=== PATIENT | male | born 1940 | race Caucasian/White ===

== ENCOUNTER 2017-01-24 21:50 | Emergency (ER) | payer MEDICARE, OTHER ==
--- NOTE | 2017-01-24 22:08 | Emergency Department Record ---
History of Present Illness - General Chief Complaint: Shortness of breath Stated Complaint: CHEST DISCOMFORT/DEYSI Time Seen by Provider: 01/24/17 22:08 Source: Patient Mode of Arrival: Ambulatory Limitations: No limitations - History of Present Illness Initial Comments: 76 yo male presents to ED with a CC of "difficulty breathing when sitting, improved with getting up and moving around". Patient denies fevers, chills, cough, or chest pain symptoms. Patient reports lower extremity wounds and edema , but has not worsened recently. Patient reports recent history of atrial fibrillation. MD Complaint: Shortness of breath Onset/Timin -: Days(s) Severity: Moderate Consistency: Intermittent Improves With: Nothing Worsens With: Lying flat Known History Of: COPD, Diabetes Associated Symptoms: Denies other symptoms Treatments Prior to Arrival: None - Related Data Home Oxygen Therapy: No Home Medications Medication Instructions Recorded Confirmed Last Taken Amoxicillin [Amoxil] 875 mg PO BID 11/02/16 11/02/16 11/01/16 Ampicillin Sodium 500 mg IJ ASDIR PRN 11/02/16 11/02/16 Unknown Ascorbic Acid [Vitamin C] 1,000 mg PO DAILY 11/02/16 11/02/16 11/01/16 Atorvastatin Calcium [Lipitor] 40 mg PO QHS 11/02/16 11/02/16 11/01/16 Ferrous Sulfate 325 mg PO TID 11/02/16 11/02/16 11/01/16 Furosemide [Lasix] 40 mg PO BID 11/02/16 11/02/16 11/01/16 Hydromorphone HCl [Dilaudid] 1 mg PO CONT 11/02/16 11/02/16 11/01/16 Insulin Detemir [Levemir] 6 unit SQ QHS 11/02/16 11/02/16 11/01/16 Levothyroxine Sodium [Synthroid] 25 mcg PO DAILY 11/02/16 11/02/16 11/01/16 Magnesium 400 mg PO BID 11/02/16 11/02/16 11/01/16 Metoprolol/Hydrochlorothiazide 1 tab PO BID 11/02/16 11/02/16 11/01/16 [Lopressor Hct 50-25 Tablet] Multivit-Min/FA/Lycopene/Lut 1 each PO DAILY 11/02/16 11/02/16 11/01/16 [Centrum Silver Tablet] Oxycodone HCl/Acetaminophen 1 tab PO Q4H PRN 11/02/16 11/02/16 11/01/16 [Percocet 10mg/325mg] Ranitidine HCl [Zantac] 150 mg PO DAILY 11/02/16 11/02/16 11/01/16 Tamsulosin HCl [Flomax] 0.4 mg PO DAILY 11/02/16 11/02/16 11/01/16 Warfarin Sodium [Coumadin] 2 mg PO DAILY 11/02/16 11/02/16 11/01/16 Allergies Allergy/AdvReac Type Severity Reaction Status Date / Time onion Allergy Intermediate NAUSEA Verified 01/30/16 14:13 Travel Screening - Travel/Exposure Within Last 30 Days Have you traveled within the last 30 days?: No - Travel/Exposure Within Last Year Have you traveled outside the [place] in the last year?: No - Additonal Travel Details Have you been exposed to anyone with a communicable illness?: No Review of Systems Constitutional: Denies: Chills, Fever, Malaise, Night sweats Eyes: Denies: Eye discharge, Eye pain ENT: Denies: Congestion, Ear pain, Epistaxis Respiratory: Reports: Dyspnea. Denies: Cough, Hemoptysis Cardiovascular: Reports: Chest pain. Denies: Dyspnea on exertion, Palpitations , Paroxysmal nocturnal dyspnea Endocrine: Denies: Fatigue, Heat or cold intolerance Gastrointestinal: Denies: Abdominal pain, Nausea, Vomiting Genitourinary: Denies: Hematuria, Incontinence, Retention Musculoskeletal: Denies: Arthralgia, Back pain, Gout, Joint swelling Skin: Denies: Bruising, Change in color Neurological: Denies: Abnormal gait, Confusion, Headache, Seizure Psychiatric: Denies: Anxiety Hematological/Lymphatic: Denies: Anemia, Blood Clots Past Medical History - SOCIAL HISTORY Smoking Status: Former smoker Alcohol Use: None Drug Use: None - RESPIRATORY Hx Respiratory Disorders: Yes Hx Pneumonia: Yes (1989) - CARDIOVASCULAR Hx Cardio Disorders: Yes Hx Abnormal EKG: Yes Hx CHF: Yes Hx Deep Vein Thrombosis: Yes (20 years ago after being kicked by a cow) Hx Edema: Yes (bilat legs recent hospitalization) Hx Hypertension: Yes Hx Irregular Heartbeat: Yes (hx a fib had cardioversion 1990) Hx Pacemaker/Defib: Yes (2015) Comment:: hospitalizations states cardiac arrest during past hospitalization - NEURO Hx Neuro Disorders: No Hx Seizures: (denies) - GI Hx GI Disorders: Yes Hx Reflux: (denies reflux) Hx Wt Loss/Wt Gain: Yes (loss 20-30#) - Hx Genitourinary Disorders: No Hx Prostate Problems: No (pt states no but on flomax) - ENDOCRINE Hx Endocrine Disorders: Yes Hx Diabetes: Yes Comment:: checks blood sugars bid (100-140)/ulcers on feet due to poor circulation - MUSCULOSKELETAL Hx Musculoskeletal Disorders: Yes Hx Arthritis: Yes Hx Back Injury: Yes Hx Musculoskeletal Disease: Yes Comment:: chronic pain; hx septic hip in past - PSYCH Hx Psych Problems: No - HEMATOLOGY/ONCOLOGY Hx Hematology/Oncology Disorders: Yes Hx Anemia: Yes Hx Bruising: Yes Hx Cancer: Yes (skin) Hx Clotting Problems: Yes Hx Blood Transfusions: Yes (with hip surgery, and hematoma) Hx Blood Transfusion Reaction: No Comment:: pt to bridge with Lovenox 4 days preop Family Medical History Any Significant Family History?: Yes Hx Cancer: Father, Mother Hx Dementia: Mother *Dementia Comment: mother alzheimers Physical Exam - General General Appearance: Alert, Oriented x3, Cooperative, No acute distress Limitations: No limitations - Head Head exam: Atraumatic, Normocephalic, Normal inspection Head exam detail: negative: Abrasion, Contusion, Bravo's sign, General tenderness, Hematoma, Laceration - Eye Eye exam: Normal appearance. negative: Conjunctival injection, Periorbital swelling, Periorbital tenderness, Scleral icterus - ENT Ear exam: negative: Auricular hematoma, Auricular trauma Nasal Exam: negative: Active bleeding, Discharge, Dried blood, Foreign body Mouth exam: negative: Drooling, Laceration, Muffled voice, Tongue elevation - Neck Neck exam: Normal inspection. negative: Meningismus, Tenderness - Respiratory Respiratory exam: Decreased breath sounds. negative: Rales, Respiratory distress, Rhonchi, Stridor, Wheezes - Cardiovascular Cardiovascular Exam: Regular rate, Normal rhythm, Normal heart sounds - GI/Abdominal GI/Abdominal exam: Soft. negative: Rebound, Rigid, Tenderness - Rectal Rectal exam: Deferred - exam: Deferred - Extremities Extremities exam: Pedal edema. negative: Calf tenderness, Tenderness - Back Back exam: Denies: CVA tenderness (R), CVA tenderness (L) - Neurological Neurological exam: Alert, Oriented X3. negative: Motor sensory deficit - Psychiatric Psychiatric exam: Normal affect, Normal mood - Skin Skin exam: Normal color. negative: Abrasion Type of lesion: negative: abrasion Course - Reevaluation(s) Reevaluation #1: 01/24/17 22:08 EKG: Demand Pacing 74 T Wave inversion III Previous 08/06/16, no paced rhythm at this time. 01/24/17 22:14 Reevaluation #2: 01/24/17 23:06 Labs reviewed, Troponin 0.089, Hgb 11.1, INR 2.61, BNP 6190, BUN 45/Creatinine 1.5 (baseline per previous labs). Aspirin given to the patient. CXR reviewed, appears consistent with RLL infiltrate. [facility] 1-call contacted for transfer. Reevaluation #3: 01/24/17 23:19 Case was discussed with Dr. Davila, will accept admission for SDU. Reevaluation #4: 01/24/17 23:30 Patient and family updated on all results, awaiting bed number for transfer. Medical Decision Making - Lab Data Result diagrams: 01/24/17 21:55 01/24/17 21:55 Disposition Disposition: Transfer Clinical Impression: Elevated troponin Dyspnea Qualifiers: Dyspnea type: unspecified Qualified Code(s): R06.00 - Dyspnea, unspecified CHF (congestive heart failure) Qualifiers: Congestive heart failure type: unspecified congestive heart failure type Congestive heart failure chronicity: unspecified congestive heart failure chronicity Qualified Code(s): I50.9 - Heart failure, unspecified Pneumonia Qualifiers: Pneumonia type: due to unspecified organism Laterality: right Lung location: lower lobe of lung Qualified Code(s): J18.1 - Lobar pneumonia, unspecified organism Disposition: Acute Care Hospital Transfer Transfer To: [facility] Reason For Transfer: Cardiology consultation Accepting Physician: Giovanni Time Discussed w/Accepting Physician: 23:22 Condition: (2) Stable Forms: Patient Portal Access Time of Disposition: 23:22
[2017-01-24 22:18] LABS: BASO % 0.4 % (0-6); EOS % 3.2 % (0-6); GRAN % 68.6 % (47-80); HEMATOCRIT 35.3 % (42.0-52.0); HEMOGLOBIN 11.1 gm/dl (14.0-18.0); LYMPH % 18.8 % (16-45); MEAN CELL VOLUME 87.4 fl (81-97); MEAN CORPUSCULAR HEMOGLOBIN 27.4 pg (27-33); MEAN CORPUSCULAR HGB CONC 31.4 g/dl (32-36); MEAN PLATELET VOLUME 11.1 fl (7.4-10.4); PLATELET COUNT 184 K/uL (130-400); RED BLOOD COUNT 4.04 M/uL (4.40-5.70); RED CELL DISTRIBUTION WIDTH 14.8 % (11.5-14.5); WHITE BLOOD COUNT W/O DIFF 5.4 K/uL (4.2-12.2)
[2017-01-24] MEDS ORDERED: IPRATROPIUM/ALBUTEROL (0.5MG/3MG) NEB INH ONE (22:27)
[2017-01-24 22:28] LABS: ALB/GLOB RATIO 1.4 (1.1-1.8); ALBUMIN 4.3 gm/dL (3.5-5.0); ANION GAP 11.4 (7-16); BILIRUBIN,TOTAL 1.12 mg/dL (0.2-1.3); CARBON DIOXIDE 30.6 mmol/L (22-30); CREATININE 1.5 mg/dL (0.66-1.25); TOTAL PROTEIN 7.3 gm/dL (6.3-8.2)
[2017-01-24 22:40] LABS: CKMB 7.5 ug/L (0-6)
[2017-01-24 22:44] LABS: INR 2.61; PROTHROMBIN TIME (PATIENT) 29.5 SECONDS (9.5-12.1)
[2017-01-24] MEDS ORDERED: ASPIRIN 81 MG CHEWABLE TABLET PO ONE (22:49)
[2017-01-24 23:07] LABS: TROPONIN I 0.089 ng/mL (0.00-0.034)
[2017-01-24] MEDS ORDERED: CEFTRIAXONE SODIUM 1 GM in 0.9 % SODIUM CHLORIDE 100ML 100 ML IVPB ONE (23:12)
[2017-01-24] MEDS ORDERED: DOXYCYCLINE HYCLATE 100 MG CAPSULE PO ONE (23:30)
[2017-01-25] MEDS ORDERED: HYDROMORPHONE HCL 1 MG/ML CPJ IVP ONE (00:17)
[2017-01-25 00:27] LABS: CKMB RELATIVE INDEX 2.3 % (0-4)
--- NOTE | 2017-01-29 08:23 | RADIOLOGY REPORT ---
EXAM: CHEST, TWO VIEWS HISTORY: SHORTNESS OF BREATH. TECHNIQUE: Upright PA and lateral views of the chest were obtained. Comparison: Two view chest radiographic examination dated 05/17/15. Acute abdominal series dated 11/02/16. FINDINGS: A dual lead transvenous cardiac stimulator remains in place via the left subclavian approach with lead tips in the right atrium and right ventricle respectively. The heart is not grossly enlarged. No pulmonary venous hypertension is seen. Minor patchy opacities are questioned in each lung base consistent with atelectasis or infiltrate. There is mild elevation of the left hemidiaphragm. No lung consolidation, costophrenic angle blunting, or pneumothorax. There are degenerative changes of the visualized spine. IMPRESSION: 1. MINOR PATCHY OPACITIES IN THE LOWER LUNGS CONSISTENT WITH ATELECTASIS OR MILD INFILTRATE. 2. MILD ELEVATION OF THE LEFT HEMIDIAPHRAGM. 3. DUAL LEAD TRANSVENOUS CARDIAC STIMULATOR REMAINS IN PLACE. JOB NUMBER: [id number] MTDD
== END 2017-01-25 04:00 | disposition short-term general hospital (02) ==
LOC: ER 21:50
DX: J18.1 Lobar pneumonia, unspecified organism (principal); I50.9 Heart failure, unspecified; R79.89 Other specified abnormal findings of blood chemistry; R06.00 Dyspnea, unspecified; E11.9 Type 2 diabetes mellitus without complications; Z79.4 Long term (current) use of insulin; I48.91 Unspecified atrial fibrillation; Z79.01 Long term (current) use of anticoagulants; I10 Essential (primary) hypertension; Z87.891 Personal history of nicotine dependence
CPT/HCPCS: 71020; 80053; 82550; 82553; 83880; 84484; 85025; 85610; 93005; 93010; 94640; 96365; 96375; 99285; J1170

== ENCOUNTER 2017-02-24 14:51 | Inpatient (IN) | payer MEDICARE, OTHER ==
[2017-02-25] MEDS ORDERED: ALBUTEROL SULFATE (0.083%) 2.5 MG/3 ML NEB INH PRN (15:09)
[2017-02-25] MEDS ORDERED: OXYCODONE/APAP 10MG-325MG TABLET PO PRN (15:10)
[2017-02-25] MEDS ORDERED: CLOTRIMAZOLE/BETAMET 15 GM TUBE TOP PRN (15:13)
[2017-02-25] MEDS ORDERED: DICLOFENAC 1% TOP PRN (15:17)
[2017-02-25] MEDS: IPRATROPIUM/ALBUTEROL (0.5MG/3MG) NEB INH SCH ×2 (17:42→22:02)
[2017-02-25] MEDS: BUMETANIDE 1 MG TABLET PO SCH (18:29)
[2017-02-25] MEDS: FERROUS SULFATE 325 MG TAB PO SCH (18:29)
[2017-02-25] MEDS: WARFARIN 1 MG TABLET PO SCH ×2 (18:30→21:21)
[2017-02-25] MEDS: POLYETHYLENE GLY 17 GM PACKET PO SCH (21:46)
[2017-02-25] MEDS: SENNOSIDES/DOCUSATE SODIUM UD CAPSULE PO SCH (21:48)
[2017-02-25] MEDS: DOXYCYCLINE HYCLATE 100 MG CAPSULE PO SCH (21:48)
[2017-02-25] MEDS: POTASSIUM CHLORIDE 20 MEQ TABLET PO SCH (21:49)
[2017-02-25] MEDS: METOPROLOL TART 50 MG TABLET PO SCH (21:49)
[2017-02-25] MEDS: RANITIDINE HCL 150 MG TABLET PO SCH (21:49)
[2017-02-25] MEDS: GUAIFENESIN 1,200 MG TABLET PO SCH (21:50)
[2017-02-25] MEDS: ASCORBIC ACID 500 MG TAB PO SCH (21:50)
[2017-02-25] MEDS: CEFDINIR 300 MG CAPSULE PO SCH (21:51)
[2017-02-25] MEDS: LEVEMIR FLEXTOUCH 100 UNIT/ML INSULIN PEN SQ SCH (22:03)
[2017-02-26] MEDS: LEVOTHYROXINE SODIUM 150 MCG TABLET PO SCH (06:21)
[2017-02-26] MEDS: IPRATROPIUM/ALBUTEROL (0.5MG/3MG) NEB INH SCH ×5 (06:21→22:14)
--- NOTE | 2017-02-26 07:10 | History & Physical ---
History of Present Illness - Date Date of Service for History & Physical: 02/26/17 - History of Present Illness Admitting Diagnosis: Deconditioning due to CHF and Pneumonia History of Present Illness: 76 y/o male admitted to [facility] after prolonged hospital stay for deconditioning s/p HCAP and exacerbation CHF NYHA class III. PMX: CAD (cath 2010 , treadmill 2014), atrial fibrillation on long-term anticoagulant therapy with coumadin, cardioversion 01/27/17, v-tach with AICD placement, bilat carotid stenosis, mitral insufficiency, HTN, DM-2, ICD, diastolic CHF (echo 12/2016 EF 60 -65%). While hospitalized at [facility] was treated for HCAP, placed on broad spectrum antibiotics and to continue Vantin x total 10 day regimen. Had slow clinical recovery with recent readmission soon after previous discharge prompting hesitation of promp discharge. He developed diarrhea during his stay, c-diff PCR ordered but loose stool stopped thereafter. WBC normal at time of discharge. Was diuresed with IV Bumex and metolazone with total of 25lb weight loss during the course of admission with suspected over diuresis. BUmex held x 36 hours due to JOAN with improvement in renal function. Plan to resume Bumex 2mg PO BID at discharge (was taking Lasix 80mg TID at home prior to admit to [facility]). Developed BLE cellulitis during admit with improvement on Doxycycline and will continue for total 10 day regimen. Right foot pulse weak, arterial duplex complete RLE and was normal. Arterial doppler BUE done 2nd > 15mmHg difference in upper extremity blood pressures and was found to be normal. CT chest without evidence of aortic dissection. Did have a run of NSVT prior to hospitalization, case discussed with cardiology with no new recommendations. Day prior to discharge: INR 3.9, BUN 36, Cr 1.34, GFR 52, WBC nl, Hgb 12.0 PCP: Dr Elan Aleman Cardiology: LEONARDA Franz General - Cognitive Patterns Orientation: Oriented x3 - Communication Preferred Language?: Lithuanian List Of First Job Ideas Required: No Level of Education: High School Preferred Method of Learning: Seeing, Doing Comprehension Ability: No Impairment Able to Read: Yes Able to Write: Yes Select best description of speech pattern: Clear Speech Ability to express ideas and wants: Understood Understanding verbal content: Understands - Psychosocial Well-Being Usual Living Arrangement: Alone - Physical Functioning Activity Level: Up as tolerated Turning: Self ad trista ROM Ability: Limited/Compromised Assistive Devices: 2 Wheel Walker Ambulation Ability: Needs Assist Bed Mobility: Needs Assist Transfer Ability: Needs Assist Bathing Ability: Needs Assist Personal Hygiene: Needs Assist Dressing Ability: Needs Assist Eating (Feeding) Ability: Needs Assist Toileting Ability: Needs Assist Administer Own Medication: Needs Assist - Continence Bowel Pattern: Normal for Patient Bladder Pattern: Normal - Dental Status Unable to examine: No Broken or loosely fitting full or partial dentures: No No natural teeth or tooth fragment(s) (edentulous): No Abnormal mouth tissue (ulcers, masses, oral lesions, etc.): No Obvious or likely cavity or broken natural teeth: No Inflamed or bleeding gums or loose natural teeth: No Mouth/facial pain, discomfort or difficulty chewing: No - Nutrition Screening Poor oral intake > 1 week: No Unplanned weight loss in specified time frame: No Nutrition Support via tube feedings or parenteral nutrition: No Pressure Ulcer: No Significantly underweight define as BMI <18.5 kg/m2: No Albumin <2.5mg/dL: No Persistent nausea/vomiting/diarrhea >3 days: No Difficulty chewing/swallowing/mouth sores: No Admitting Diagnosis: No Nutrition Risk Score: Low Risk Past Medical History - SOCIAL HISTORY Smoking Status: Former smoker Alcohol Use: None - SURGICAL HISTORY Past Surgical History: pump trial with dilaudid implanted cath (permanent device in place). Back surgery X5, neck surgery, Hip & shoulder sx,Bunionectomy ,bilat right hip replacement, AICD, abscess rt thigh, septic hip, hematoma rt thigh, revision x2, evac of hematoma post rt hip;. lumbar rhizotomy 05/31/15. permanent pain pump 2016 - RESPIRATORY Hx Respiratory Disorders: Yes Hx Pneumonia: Yes (1989, current 2016) - CARDIOVASCULAR Hx Cardio Disorders: Yes Hx Abnormal EKG: Yes Hx CHF: Yes Hx Deep Vein Thrombosis: Yes (20 years ago after being kicked by a cow, current rt ankle 01/2017) Hx Edema: Yes (bilat legs recent hospitalization) Hx Hypertension: Yes Hx Irregular Heartbeat: Yes (hx a fib had cardioversion 1990 & 01/2017) Hx Pacemaker/Defib: Yes (2014) Comment:: hospitalizations states cardiac arrest during past hospitalization - NEURO Hx Neuro Disorders: No Hx Seizures: (denies) - GI Hx GI Disorders: Yes Hx Reflux: (denies reflux) Hx Wt Loss/Wt Gain: Yes (loss 20-30#) - Hx Genitourinary Disorders: No Hx Prostate Problems: No (pt states no but on flomax) - ENDOCRINE Hx Endocrine Disorders: Yes Hx Diabetes: Yes Hx Thyroid Disease: Yes Comment:: checks blood sugars bid (100-140)/ulcers on feet due to poor circulation - MUSCULOSKELETAL Hx Musculoskeletal Disorders: Yes Hx Arthritis: Yes Hx Back Injury: Yes Hx Musculoskeletal Disease: Yes Comment:: chronic pain; hx septic hip in past - PSYCH Hx Psych Problems: No - HEMATOLOGY/ONCOLOGY Hx Hematology/Oncology Disorders: Yes Hx Anemia: Yes Hx Bruising: Yes Hx Cancer: Yes (skin) Hx Clotting Problems: Yes Hx Blood Transfusions: Yes (with hip surgery, and hematoma) Hx Blood Transfusion Reaction: No Family Medical History Any Significant Family History?: No Hx Cancer: Father, Mother Hx Dementia: Mother *Dementia Comment: mother alzheimers H&P Meds/Allergies - Allergies Allergies: Allergies Allergy/AdvReac Type Severity Reaction Status Date / Time onion Allergy Intermediate NAUSEA Verified 01/30/16 14:13 - Home Medications Home Medications Medication Instructions Recorded Confirmed Last Taken Ascorbic Acid [Vitamin C] 1,000 mg PO BID 11/02/16 02/25/17 02/25/17 1000 Atorvastatin Calcium [Lipitor] 40 mg PO QHS 11/02/16 02/25/17 02/25/17 40 Ferrous Sulfate 325 mg PO TID 11/02/16 02/25/17 02/25/17 325 Hydromorphone HCl [Dilaudid] 1 mg PO CONT 11/02/16 02/25/17 11/01/16 Insulin Detemir [Levemir] 6 unit SQ QHS 11/02/16 02/25/17 02/24/17 6 Magnesium 400 mg PO BID 11/02/16 02/25/17 02/25/17 400 Multivit-Min/FA/Lycopene/Lut 1 each PO DAILY 11/02/16 02/25/17 02/25/17 [Centrum Silver Tablet] 1 Oxycodone HCl/Acetaminophen 1 - 2 tab PO Q4H PRN 11/02/16 02/25/17 11/01/16 [Percocet 10mg/325mg] Ranitidine HCl [Zantac] 150 mg PO DAILY 11/02/16 02/25/17 02/24/17 150 Tamsulosin HCl [Flomax] 0.4 mg PO DAILY 11/02/16 02/25/17 02/25/17 0.4 Warfarin Sodium [Coumadin] 2 mg PO DAILY 11/02/16 02/25/17 02/25/17 3 Amiodarone HCl [Pacerone] 200 mg PO DAILY 02/25/17 02/25/17 02/25/17 200 Bumetanide [Bumex] 2 mg PO DAILY 02/25/17 02/25/17 Unknown Cefpodoxime Proxetil 200 mg PO BID 02/25/17 02/25/17 Unknown Cholecalciferol (Vitamin D3) 5,000 unit PO DAILY 02/25/17 02/25/17 Unknown [Vitamin D3] Clotrimazole/Betamethasone Dip 15 gm TP BID 02/25/17 02/25/17 Unknown [Clotrimazole-Betamethasone Crm] Doxycycline Hyclate [Doxycycline] 100 mg PO BID 02/25/17 02/25/17 Unknown Guaifenesin [Guaifenesin ER] 1,200 mg PO BID 02/25/17 02/25/17 02/25/17 1200 Levalbuterol Tartrate [Xopenex Hfa] 2 puff INH RESP.Q6H PRN 02/25/17 02/25/17 Unknown Levothyroxine Sodium [Synthroid] 150 mcg PO QAM 02/25/17 02/25/17 02/25/17 150 Metoprolol Tartrate [Metoprolol 50 mg PO BID 02/25/17 02/25/17 02/25/17 Tartrate] 50 Polyethylene Glycol 3350 [Miralax] 17 gm PO DAILY 02/25/17 02/25/17 Unknown Potassium Chloride [Klor-Con] 20 meq PO BID 02/25/17 02/25/17 Unknown Prednisone [Prednisone 20Mg] 40 mg PO DAILY 02/25/17 02/25/17 02/25/17 40 Sennosides/Docusate Sodium 2 each PO QHS 02/25/17 02/25/17 Unknown [Senna-Docusate Sodium Tablet] - Active Medications Active Medications: Current Medications Albuterol Sulfate () 2.5 mg INH Q6H PRN PRN Reason: WHEEZING Albuterol/Ipratropium (Duoneb) 3 ml INH RESP.Q4H.[employer] Last Admin: 02/26/17 06:21 Dose: 3 ml Amiodarone HCl (Pacerone) 200 mg PO DAILY [facility] Ascorbic Acid (Vitamin C) 1,000 mg PO BID [facility] Last Admin: 02/25/17 21:50 Dose: 1,000 mg Atorvastatin Calcium (Lipitor) 40 mg PO DAILY [facility] Bumetanide (Bumex) 2 mg PO BIDDIUR [facility] Last Admin: 02/25/17 18:29 Dose: 2 mg Cefdinir (Cefdinir) 300 mg PO Q12H [facility] Stop: 02/28/17 10:01 Last Admin: 02/25/17 21:51 Dose: 300 mg Clotrimazole (Lotrisone) 0.5 gm TOP BID PRN PRN Reason: DRY SKIN Doxycycline Hyclate (Vibramycin) 100 mg PO Q12H [facility] Stop: 02/28/17 10:01 Last Admin: 02/25/17 21:48 Dose: 100 mg Ferrous Sulfate (Iron) 325 mg PO WMEALS [facility] Last Admin: 02/25/17 18:29 Dose: 325 mg Guaifenesin (Mucinex) 1,200 mg PO BID [facility] Stop: 02/27/17 22:01 Last Admin: 02/25/17 21:50 Dose: 1,200 mg Insulin Detemir (Levemir Flextouch) 6 unit SQ QHS [facility] Last Admin: 02/25/17 22:03 Dose: 6 unit [facility]othy[facility]ine [facility]) [facility] Admin: 02/26/17 06:21 Dose: 150 mcg Magnesium Oxide (Mag Ox) 400 mg PO DAILY [facility] Metoprolol Tartrate (Lopressor) 50 mg PO BID [facility] Last Admin: 02/25/17 21:49 Dose: 50 mg Multivitamins/Minerals (Centrum) 1 tab PO DAILY [facility] Oxycodone/Acetaminophen (Percocet 10-325 Mg Tablet) 1 each PO Q4H PRN PRN Reason: Pain - General Oxycodone/Acetaminophen (Percocet 10-325 Mg Tablet) 2 each PO Q4H PRN PRN Reason: Pain - General Patient Own Med: (Diclofenac Cream 1 %) 1 each TOP DAILY PRN PRN Reason: Pain - General Polyethylene Glycol (Miralax) 17 gm PO QHS [facility] Last Admin: 02/25/17 21:46 Dose: 17 gm Potassium Chloride (Klor-Con) 20 meq PO BID [facility] Last Admin: 02/25/17 21:49 Dose: 20 meq Prednisone (Prednisone 20mg) 40 mg PO DAILYWM [facility] Stop: 02/27/17 08:01 Ranitidine HCl (Zantac) 150 mg PO QHS [facility] Last Admin: 02/25/17 21:49 Dose: 150 mg Senna/Docusate Sodium (Senna Plus) 1 each PO QHS [facility] Last Admin: 02/25/17 21:48 Dose: 1 each Tamsulosin HCl (Flomax) 0.4 mg PO DAILY [facility] Vitamin D (Vitamin D3) 5,000 unit PO DAILY [facility] Warfarin Sodium (Coumadin) 2 mg PO 1999 [facility] Last Admin: 02/25/17 21:21 Dose: Not Given Physical Exam - Vital Signs Vital Signs: Vital Signs - Last 24 Hrs Pulse Resp Pulse Ox 02/25/17 17:53 76 18 94 L - General General Appearance: Alert, Oriented x3, Cooperative, No acute distress - Head Head exam: Atraumatic - Eye Eye exam: Normal appearance, EOMI - ENT ENT exam: Normal exam - Neck Neck exam: Normal inspection, Full ROM - Respiratory Respiratory exam: Normal lung sounds bilaterally - Cardiovascular Cardiovascular Exam: Regular rate, Normal rhythm, Normal heart sounds Peripheral Pulses: 1+: Dorsalis Pedis (R), 2+: Dorsalis Pedis (L) - GI/Abdominal GI/Abdominal exam: Soft, Normal bowel sounds. negative: Tenderness - exam: Deferred - Extremities Extremities exam: negative: Pedal edema - Neurological Neurological exam: Alert, CN II-XII intact, Oriented X3 - Psychiatric Psychiatric exam: Normal affect, Normal mood - Skin Skin exam: Other (wound right medial malleolar area, currently covered wt dressing, was a blistered area from excessive swelling at time of admit to [facility]) H&P Results - Labs Result Diagrams: 02/27/17 06:00 02/27/17 06:00 Labs Last 24 Hours: Laboratory Results - last 24 hr 02/25/17 22:00 POC Glucose 346 H Discharge Potential - Discharge Needs Community Services Used Prior to Admission: None Patient Discharge Plan Description: Return Home Community Services Needed at Discharge: Occupational Therapy, Physical Therapy Plan - Swing Bed Certification Initial Certification Due: 02/25/17 14 Day Re-Cert Due: 03/11/17 44 Day Re-Cert Due: 04/10/17 74 Day Re-Cert Due: 05/10/17 - Detailed Diagnosis and Plan (1) Generalized weakness Current Visit: Yes Status: Acute Base Code: R53.1 - WEAKNESS Comment: 02/26/17- Admitted for generalized weakness and general deconditioning s /p prolonged hospitalization for HCAP and exacerbatio of CHF with subsequent development of RLE cellulitis. - PT/OT evaluat and treat - nursing to encourage frequent ambulation and independence of ADL (2) Healthcare-associated pneumonia Current Visit: Yes Status: Acute Base Code: J18.9 - PNEUMONIA, UNSPECIFIED ORGANISM Comment: 02/26/17 - afebrile, WBC normal. Continues with intermittent productive cough, no DEYSI - continue Vantin to complete 10 day regimen (3) CHF (congestive heart failure) Current Visit: Yes Status: Acute Qualifiers: Congestive heart failure type: unspecified congestive heart failure type Congestive heart failure chronicity: unspecified congestive heart failure chronicity Qualified Code(s): I50.9 - Heart failure, unspecified Base Code: I50.9 - HEART FAILURE, UNSPECIFIED Comment: 02/26/17 Exacerbation of chronic CHF, 25lb overall weight loss during hospitalizaiton - Continue Bumex 2mg BID per cardiology recommendations from [facility] - will be monitoring renal function closley - weight weekly - follow up outpatient vascular team at [facility] for upper arm BP discrepency (4) Anemia Current Visit: Yes Status: Chronic Base Code: D64.9 - ANEMIA, UNSPECIFIED Comment: 02/26/17 - admit Hgb 12.0 - continue iron TID (5) Cellulitis Current Visit: Yes Status: Acute Base Code: L03.90 - CELLULITIS, UNSPECIFIED Comment: 02/26/17- cellulitis 2nd excessive BLE edema upon admittsion to [facility]. 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 - accu checks BID - diabetic diet - follow up PCP 1-2 weeks after discharge (7) DVT prophylaxis Current Visit: Yes Status: Acute Base Code: [id number] - Comment: 02/26/17- moderate risk due to age and prolonged hospitalization. Will continue Coumadin 2mg QD with serial INRs and dose adjustments accordingly to keep INR therapeutic (8) Full code status Current Visit: Yes Status: Acute Base Code: Z78.9 - OTHER SPECIFIED HEALTH STATUS
[2017-02-26] MEDS: PREDNISONE 20 MG TAB PO SCH (08:01)
[2017-02-26] MEDS: FERROUS SULFATE 325 MG TAB PO SCH ×3 (08:02→16:32)
--- NOTE | 2017-02-26 09:51 | Rehab Evaluation ---
Patient Information - Patient Information Ordered Treatment: PT Evaluate and Treat Status: Initial Evaluation History: Detail (The patient was transferred from [facility] for Rehab. The patient was hospitalized for pnemonia.) Past Medical/Surgical Hx: PAST MEDICAL/SURGICAL HISTORY Past Surgical History pump trial with dilaudid implanted cath ( permanent device in place) Back surgery X5, neck surgery, Hip & shoulder sx ,Bunionectomy,bilat right hip replacement, AICD , abscess rt thigh, septic hip, hematoma rt thigh , revision x2, evac of hematoma post rt hip; lumbar rhizotomy 05/31/15. permanent pain pump 2015 PMH - Respiratory Hx Respiratory Disorders Yes Hx Pneumonia Yes: 1989, current 2016 Hx of SOB Yes: occass PMH - Cardiovascular Hx Cardiovascular Disorders Yes Hx Abnormal EKG Yes Hx Congestive Heart Failure Yes Hx Deep Vein Thrombosis Yes: 20 years ago after being kicked by a cow, current rt ankle 01/2017 Hx Edema Yes: bilat legs recent hospitalization Hx Hypertension Yes Hx Irregular Heartbeat Yes: hx a fib had cardioversion 1990 & 01/2017 Hx Pacemaker/Defibrillator Yes: 2014 Comment: hospitalizations states cardiac arrest during past hospitalization 07/18 PMH - Neuro Hx Neurological Disorders No Hx Neuropathy Yes: rt hand Hx Seizures denies PMH - GI Hx Gastrointestinal Disorders Yes Hx Gastroesophageal Reflux denies reflux Hx Weight Loss/Weight Gain Yes: loss 20-30# PMH - Hx Genitourinary Disorders No Hx Bladder Problem Yes: retention Hx Prostate Problems No: pt states no but on flomax Hx Urinary Tract Infection Yes PMH - Endocrine Hx Endocrine Disorders Yes Hx Diabetes Yes Hx Thyroid Disease Yes Hx of NIDDM Yes Hx of IDDM Yes Comment: checks blood sugars bid (100-140)/ulcers on feet due to poor circulation PMH - Musculoskeletal Hx Musculoskeletal Disorders Yes Hx Arthritis Yes Hx Back Injury Yes Hx Musculoskeletal Disease Yes Comment: chronic pain; hx septic hip in past PMH - Psych Hx Psychiatric Problems No PMH - Hematology/Oncology Hx Hematology/Oncology Yes Disorders Hx Anemia Yes Hx Bruising Yes Hx Cancer Yes: skin Hx Clotting Problems Yes Hx Blood Transfusion Reaction No Comment: pt to bridge with Lovenox 4 days preop Premorbid Status: Detail (Prior to hospitalization the patient was ambulating with 2 canes outside and 1 cane in the home. The patient was independent with all ADL's and cooking. The patient's daughter assisted the patient with senior director of strategy.) Social History: Detail (The patient lives alone in a one story home with 3 steps at the entrance and 1 handrail. The patient has 2 bathrooms one with a shower stall and one with tub/shower combo with grab bar and one with elevated toilet, the other with a standard toilet. The patient has canes, and a wheeled walker.) Precautions: [place], Fall, Other (Past history of MRSA) - Time With Patient Total Time Spent With Patient (Min): 30 Treatment Procedures: Detail (Initial Evaluation and ambulation) Subjective Information - Subjective Information Per Patient (The patient complains of R groin pain with movement.) Objective Data - Pain Pain Present: Yes Pain Intensity: 6 Pain Scale Used: Numeric (1 - 10) - Mental Status Patient Orientation: Oriented x3 - Visual Perception Appears within normal limits for therapeutic activities - ROM Not within normal limits (R hip rotation external and internal was 5 to 10 degrees and painful, hip flexion to 100 degrees, abduction aprox 30 degrees, all other LE ROM was WNL. Refer to OT note for UE ROM.) - Strength/Tone Not within normal limits (L LE strength 4+ to 5/5, R LE hip flexors 3-/5, rotators 3-/5, hip abductors and adductors 3/5, Quadriceps 3/5, hamstrings 3+/5 , ankle musculature 4-/5. The patient had pain with all hip movements and knee extension.) - Coordination Appears within normal limits for therapeutic activities - Bed Mobility Needs Assist (Not tested. The patient was up in chair.) - Transfers Independent (Independent sit to and from stand .) - Balance Balance Sitting: Good Balance Standing: Fair (The patient is able to stand with wide base of support, increased postural sway with narrow base. The patient also exhibits decreased posterior balance reaction. Using the Tinetti Balance Tool the patient score 19 /28 which is the moderate for fall category.) - Gait Detail (The patient ambulated with wheeled walker a distance of 140 feet x 1 with supervision for safety. The patient's gait pattern is charecterized by decreased weight bearing R LE, decreased R hip drop and knee flexion R swing phase.) Therapy Assessment - Therapy Assessment Detail (The patient exhibits decreased R LE and groin pain with movement, decreased ability to complete sustained physical activity, difficulty with ambulation due to groin pain and decreased LE strength and moderate risk for falling. Patient is a good rehab candidate to return to previous functional level .) Problem List - Problem List Physical Therapy Problem List: Detail (1) Decreased R LE strength 2) Impaired balance 3) Decreased ability to complete sustained physical activity) Goals - Goals Physical Therapy Goals: 1)Assess bed mobility. 2) The patient will ambulate with assistive device distances of 300 feet indpendently on levels and steps. 3 ) The patient's R LE strength will improve 1/3 muscle grade. 4) Improve the patient's balance 3 to 4 points on Tinetti Balance Scale. Prognosis - Prognosis Good Plan - Plan Physical Therapy Plan: PT M-F 1 to 2 times a day for LE strengthening and balance exercises, transfer and gait training.
[2017-02-26] MEDS: BUMETANIDE 1 MG TABLET PO SCH ×2 (10:20→16:31)
[2017-02-26] MEDS: CEFDINIR 300 MG CAPSULE PO SCH ×2 (10:21→22:29)
[2017-02-26] MEDS: MULTIVITAMINS/MINERALS TABLET PO SCH (10:21)
[2017-02-26] MEDS: TAMSULOSIN HCL 0.4 MG CAP.ER.24H PO SCH (10:22)
[2017-02-26] MEDS: POTASSIUM CHLORIDE 20 MEQ TABLET PO SCH ×2 (10:22→22:29)
[2017-02-26] MEDS: ATORVASTATIN 20 MG TABLET PO SCH (10:23)
[2017-02-26] MEDS: METOPROLOL TART 50 MG TABLET PO SCH ×2 (10:23→22:28)
[2017-02-26] MEDS: MAGNESIUM OXIDE 400 MG TABLET PO SCH (10:23)
[2017-02-26] MEDS: AMIODARONE HCL 200 MG TABLET PO SCH (10:24)
[2017-02-26] MEDS: DOXYCYCLINE HYCLATE 100 MG CAPSULE PO SCH ×2 (10:24→22:28)
[2017-02-26] MEDS: GUAIFENESIN 1,200 MG TABLET PO SCH ×2 (10:24→22:29)
[2017-02-26] MEDS: ASCORBIC ACID 500 MG TAB PO SCH ×2 (10:24→22:28)
[2017-02-26] MEDS: OXYCODONE/APAP 10MG-325MG TABLET PO PRN ×2 (10:25→23:37)
[2017-02-26] MEDS: CHOLECALCIFEROL 1,000 UNIT TABLET PO SCH (10:25)
--- NOTE | 2017-02-26 12:03 | Rehab Evaluation ---
Patient Information - Patient Information Diagnosis: deconditioning due to CHF and pneumonia Ordered Treatment: OT Evaluate and Treat Status: Initial Evaluation Surgery: No History: Detail (The patient was transferred from [facility] for Rehab. The patient was hospitalized for pneumonia.) Past Medical/Surgical Hx: PAST MEDICAL/SURGICAL HISTORY Past Surgical History pump trial with dilaudid implanted cath ( permanent device in place) Back surgery X5, neck surgery, Hip & shoulder sx ,Bunionectomy,bilat right hip replacement, AICD , abscess rt thigh, septic hip, hematoma rt thigh , revision x2, evac of hematoma post rt hip; lumbar rhizotomy 05/31/15. permanent pain pump 2015 PMH - Respiratory Hx Respiratory Disorders Yes Hx Pneumonia Yes: 1989, current 2016 Hx of SOB Yes: occass PMH - Cardiovascular Hx Cardiovascular Disorders Yes Hx Abnormal EKG Yes Hx Congestive Heart Failure Yes Hx Deep Vein Thrombosis Yes: 20 years ago after being kicked by a cow, current rt ankle 01/2017 Hx Edema Yes: bilat legs recent hospitalization Hx Hypertension Yes Hx Irregular Heartbeat Yes: hx a fib had cardioversion 1990 & 01/2017 Hx Pacemaker/Defibrillator Yes: 2014 Comment: hospitalizations states cardiac arrest during past hospitalization 07/18 PMH - Neuro Hx Neurological Disorders No Hx Neuropathy Yes: rt hand Hx Seizures denies PMH - GI Hx Gastrointestinal Disorders Yes Hx Gastroesophageal Reflux denies reflux Hx Weight Loss/Weight Gain Yes: loss 20-30# PMH - Hx Genitourinary Disorders No Hx Bladder Problem Yes: retention Hx Prostate Problems No: pt states no but on flomax Hx Urinary Tract Infection Yes PMH - Endocrine Hx Endocrine Disorders Yes Hx Diabetes Yes Hx Thyroid Disease Yes Hx of NIDDM Yes Hx of IDDM Yes Comment: checks blood sugars bid (100-140)/ulcers on feet due to poor circulation PMH - Musculoskeletal Hx Musculoskeletal Disorders Yes Hx Arthritis Yes Hx Back Injury Yes Hx Musculoskeletal Disease Yes Comment: chronic pain; hx septic hip in past PMH - Psych Hx Psychiatric Problems No PMH - Hematology/Oncology Hx Hematology/Oncology Yes Disorders Hx Anemia Yes Hx Bruising Yes Hx Cancer Yes: skin Hx Clotting Problems Yes Hx Blood Transfusion Reaction No Comment: pt to bridge with Lovenox 4 days preop Premorbid Status: Detail (Prior to hospitalization the patient was ambulating with 2 canes outside and 1 cane in the home. The patient was independent with all ADL's and cooking. The patient's daughter assisted the patient with sausage mixer.) Social History: Detail (The patient lives alone in a one story home with 3 steps at the entrance and 1 handrail. The patient has 2 bathrooms one with a walk in shower stall and one with tub/shower combo with grab bar and one with elevated toilet, the other with a standard toilet. The patient has canes, and a wheeled walker.) Precautions: [place], Fall, Other (Past history of MRSA) - Time With Patient Total Time Spent With Patient (Min): 30 Treatment Procedures: Detail (OT eval low complexity) Subjective Information - Subjective Information Per Patient Objective Data - Pain Pain Present: Yes (5-6/10 in right groin) - Mental Status Patient Orientation: Oriented x3 - Visual Perception Appears within normal limits for therapeutic activities - ROM Not within normal limits (Ozzy shoulder flexion limited to approx. 90 degrees with pain in right shoulder, ozzy elbow, wrist and hand AROM WNL.) - Strength/Tone Not within normal limits (Ozzy shoulder flexion 4-/5 within AROM limitations and with pain in right shoulder, ozzy elbows, wrists and dolphin researcher 4+/5) - Coordination Appears within normal limits for therapeutic activities - Transfers Independent - Balance Balance Sitting: Good Balance Standing: Good - Sensation Intact - Gait Detail (Pt ambulated in hallway with 2 wheeled walker and SBA.) - ADL's/IADL's Detail (Pt reports he completed a shower, grooming/hygiene and all dressing Indly yesterday with no difficulty.) Therapy Assessment - Therapy Assessment Detail (Pt presents with decreased overall endurance and decreased AROM/ strength in ozzy shoulders. He is Ind with self care activities.) Problem List - Problem List Physical Therapy Problem List: Detail (1) Decreased R LE strength 2) Impaired balance 3) Decreased ability to complete sustained physical activity) Occupational Therapy Problem List: Detail (1. Decreased endurance needed for safe and Ind ADLs/IADLs. 2. Decreased UE AROM and strength needed for IADLs.) Goals - Goals Physical Therapy Goals: 1)Assess bed mobility. 2) The patient will ambulate with assistive device distances of 300 feet indpendently on levels and steps. 3 ) The patient's R LE strength will improve 1/3 muscle grade. 4) Improve the patient's balance 3 to 4 points on Tinetti Balance Scale. Occupational Therapy Goals: 1. Pt will improve endurance needed for safe and Ind ADLs/IADLs 2. Pt will improve ozzy shoulder AROM by 20 degrees and improve strength to 4+/5 within AROM limitations to allow Ind with IADLs. Prognosis - Prognosis Good Plan - Plan Physical Therapy Plan: PT M-F 1 to 2 times a day for LE strengthening and balance exercises, transfer and gait training. Occupational Therapy Plan: OT 1-4 times per week to address endurance, ADLs/ IADLs, UE AROM and strengthening to allow safe and Ind return home.
[2017-02-26] MEDS: WARFARIN 1 MG TABLET PO SCH (20:50)
[2017-02-26] MEDS: RANITIDINE HCL 150 MG TABLET PO SCH (22:28)
[2017-02-26] MEDS: SENNOSIDES/DOCUSATE SODIUM UD CAPSULE PO SCH (22:28)
[2017-02-26] MEDS: POLYETHYLENE GLY 17 GM PACKET PO SCH (22:29)
[2017-02-26] MEDS: LEVEMIR FLEXTOUCH 100 UNIT/ML INSULIN PEN SQ SCH (22:29)
[2017-02-27] MEDS: IPRATROPIUM/ALBUTEROL (0.5MG/3MG) NEB INH SCH ×5 (05:59→21:57)
[2017-02-27] MEDS: LEVOTHYROXINE SODIUM 150 MCG TABLET PO SCH (06:28)
[2017-02-27 07:20] LABS: BASO % 0.1 % (0-6); GRAN % 76.9 % (47-80); HEMATOCRIT 38.7 % (42.0-52.0); HEMOGLOBIN 12.2 gm/dl (14.0-18.0); LYMPH % 13.5 % (16-45); MEAN CELL VOLUME 85.6 fl (81-97); MEAN CORPUSCULAR HGB CONC 31.5 g/dl (32-36); MEAN PLATELET VOLUME 10.6 fl (7.4-10.4); MONO % 9.5 % (0-9); PLATELET COUNT 210 K/uL (130-400); RED BLOOD COUNT 4.52 M/uL (4.40-5.70); RED CELL DISTRIBUTION WIDTH 14.3 % (11.5-14.5)
[2017-02-27 07:24] LABS: MEAN CORPUSCULAR HEMOGLOBIN 26.9 pg (27-33)
[2017-02-27 07:28] LABS: INR 3.94
[2017-02-27 07:29] LABS: ALB/GLOB RATIO 1.3 (1.1-1.8); ALBUMIN 4.1 gm/dL (3.5-5.0); ANION GAP 9.3 (7-16); BILIRUBIN,TOTAL 0.58 mg/dL (0.2-1.3); CARBON DIOXIDE 33.7 mmol/L (22-30); CREATININE 1.3 mg/dL (0.66-1.25); PROTHROMBIN TIME (PATIENT) 44.5 SECONDS (9.5-12.1); TOTAL PROTEIN 7.2 gm/dL (6.3-8.2)
[2017-02-27] MEDS: FERROUS SULFATE 325 MG TAB PO SCH ×3 (08:39→17:46)
[2017-02-27] MEDS: PREDNISONE 20 MG TAB PO SCH (08:39)
[2017-02-27] MEDS: GUAIFENESIN 1,200 MG TABLET PO SCH ×2 (11:06→22:00)
[2017-02-27] MEDS: ASCORBIC ACID 500 MG TAB PO SCH ×2 (11:06→22:00)
[2017-02-27] MEDS: MAGNESIUM OXIDE 400 MG TABLET PO SCH (11:06)
[2017-02-27] MEDS: TAMSULOSIN HCL 0.4 MG CAP.ER.24H PO SCH (11:06)
[2017-02-27] MEDS: ATORVASTATIN 20 MG TABLET PO SCH (11:07)
[2017-02-27] MEDS: CHOLECALCIFEROL 1,000 UNIT TABLET PO SCH (11:07)
[2017-02-27] MEDS: DOXYCYCLINE HYCLATE 100 MG CAPSULE PO SCH ×2 (11:07→22:00)
[2017-02-27] MEDS: AMIODARONE HCL 200 MG TABLET PO SCH (11:07)
[2017-02-27] MEDS: CEFDINIR 300 MG CAPSULE PO SCH ×2 (11:08→21:59)
[2017-02-27] MEDS: MULTIVITAMINS/MINERALS TABLET PO SCH (11:08)
[2017-02-27] MEDS: BUMETANIDE 1 MG TABLET PO SCH ×2 (11:08→17:46)
[2017-02-27] MEDS: METOPROLOL TART 50 MG TABLET PO SCH ×2 (11:09→21:59)
[2017-02-27] MEDS: POTASSIUM CHLORIDE 20 MEQ TABLET PO SCH ×2 (11:09→21:59)
--- NOTE | 2017-02-27 14:44 | Physical Therapy Tx Note ---
Physical Therapy Tx Note - Treatment Note Tolerated: Good Total Time Spent With Patient: 40 Physical Therapy Tx Note: Detail (Pt was sitting in chair upon arrival. Pt was eager to get up and exercise per pt report. Pt states however that pain is 8/10 in right hip today. Pt was able to do all transfers independently today. Pt ambulated 250 ft. with front wheeled walker with contact guard assist. Pt required one rest period x 3 min. but rested while standing and refused a chair to rest. Pt returned to room and to sitting in chair. Pt completed ex's of marches with right side assist, x 10 bilaterally. Seated hip abduction and hip adduction with manual restistance x 10 each with 5 second hold. Seated heel raise and calf raise x 15 each bilaterally. MTT of MFR and trigger point release to right hip flexor, adductor, and quad releases to decrease pain. Pt states pain increased after exercises but decreased after manual therapy. Continue to progress strength and endurance with exercises. Pt was in chair resting after treatment and given call light, bedside table, with walker within reach.) Physical Therapy Problem List: Detail (1) Decreased R LE strength 2) Impaired balance 3) Decreased ability to complete sustained physical activity) Physical Therapy Goals: 1)Assess bed mobility. 2) The patient will ambulate with assistive device distances of 300 feet indpendently on levels and steps. 3 ) The patient's R LE strength will improve 1/3 muscle grade. 4) Improve the patient's balance 3 to 4 points on Tinetti Balance Scale. Prognosis: Good Physical Therapy Plan: PT M-F 1 to 2 times a day for LE strengthening and balance exercises, transfer and gait training.
--- NOTE | 2017-02-27 15:05 | Physical Therapy Tx Note ---
Physical Therapy Tx Note - Treatment Note Tolerated: Good Total Time Spent With Patient: 40 Physical Therapy Tx Note: Detail (Pt seated in bedside chair upon arrival; in good spirits, but reporting pain in R shoulder and R groin. Performed 15 reps each of assisted hip flexion w/green t-band, hip abduction, hip adduction, hamstring curls; LAQ; 5 reps of assisted shoulder flexion R, active L; active horizontal abduction; rowing w/green t-band x 10. Ambulated w/front wheeled walker x 180 feet w/SBA, Independent w/ sit/stand transfers. Left up in chair with call light, cell phone, and bedside tables in reach.) Physical Therapy Problem List: Detail (1) Decreased R LE strength 2) Impaired balance 3) Decreased ability to complete sustained physical activity) Physical Therapy Goals: 1)Assess bed mobility. 2) The patient will ambulate with assistive device distances of 300 feet indpendently on levels and steps. 3 ) The patient's R LE strength will improve 1/3 muscle grade. 4) Improve the patient's balance 3 to 4 points on Tinetti Balance Scale. Prognosis: Good Physical Therapy Plan: PT M-F 1 to 2 times a day for LE strengthening and balance exercises, transfer and gait training.
[2017-02-27] MEDS: WARFARIN 1 MG TABLET PO SCH (20:41)
[2017-02-27] MEDS: LEVEMIR FLEXTOUCH 100 UNIT/ML INSULIN PEN SQ SCH (21:59)
[2017-02-27] MEDS: POLYETHYLENE GLY 17 GM PACKET PO SCH (22:00)
[2017-02-27] MEDS: SENNOSIDES/DOCUSATE SODIUM UD CAPSULE PO SCH (22:00)
[2017-02-27] MEDS: RANITIDINE HCL 150 MG TABLET PO SCH (22:01)
[2017-02-28] MEDS: IPRATROPIUM/ALBUTEROL (0.5MG/3MG) NEB INH SCH ×5 (05:57→22:05)
[2017-02-28] MEDS: LEVOTHYROXINE SODIUM 150 MCG TABLET PO SCH (06:05)
[2017-02-28 06:26] LABS: BASO % 0.1 % (0-6); GRAN % 75.6 % (47-80); HEMATOCRIT 39.9 % (42.0-52.0); HEMOGLOBIN 12.4 gm/dl (14.0-18.0); LYMPH % 15.4 % (16-45); MEAN CORPUSCULAR HEMOGLOBIN 26.7 pg (27-33); MEAN CORPUSCULAR HGB CONC 31.1 g/dl (32-36); MONO % 8.9 % (0-9); PLATELET COUNT 225 K/uL (130-400); RED BLOOD COUNT 4.64 M/uL (4.40-5.70); RED CELL DISTRIBUTION WIDTH 14.7 % (11.5-14.5); WHITE BLOOD COUNT W/O DIFF 8.4 K/uL (4.2-12.2)
[2017-02-28 06:39] LABS: ALB/GLOB RATIO 1.4 (1.1-1.8); ALBUMIN 4.1 gm/dL (3.5-5.0); ANION GAP 10.1 (7-16); BILIRUBIN,TOTAL 0.68 mg/dL (0.2-1.3); CARBON DIOXIDE 35.9 mmol/L (22-30); CREATININE 1.3 mg/dL (0.66-1.25); TOTAL PROTEIN 7.1 gm/dL (6.3-8.2)
--- NOTE | 2017-02-28 07:08 | Physician Progress Note ---
Subjective - Date Date of Progress Note: 02/28/17 - Admitting Diagnosis Diagnosis: Deconditioning due to CHF and Pneumonia. htn, hcap, hypothyroidism, cellulitis, bilateral edema of lower extremity, T2DM - Subjective Events since last encounter: Saw patient briefly to visualize wound to LLE and review labs. Has chronic vascular wound lateral LLE, approx 3cm x 2cm, irregular borders, + hyperbole, wound bed dry. No evidence of infection. Daughter has been managing this wound for the past 16 months. Wound is chronic, stable. Very diminished pedal pulses bilat, + vascular staining BLE. Daughter is using appropriate wound care products and has been doing a wonderful job maintaining the wound ( santyl if slough that needs debriding, zinc most days to keep dry and coving with non-stick adaptic). and preventing infection. 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, no active infection Preliminary wound cultures- no growth Nursing Care Plan Problem List Activity Intolerance (Swing Bed) Start: 02/25/17 15: 08 Freq: Status: Active Created 02/25/17 15:08 [facility] (Rec: 02/25/17 15:08 [facility] [id number]) Knowledge Deficit (Swing Bed) Start: 02/25/17 15: 08 Freq: Status: Active Created 02/25/17 15:08 [facility] (Rec: 02/25/17 15:08 [facility] [id number]) Pain (Swing Bed) Start: 02/25/17 15: 08 Freq: Status: Active Created 02/25/17 15:08 [facility] (Rec: 02/25/17 15:08 [facility] [id number]) Risk For Infection (Swing Bed) Start: 02/25/17 16: 52 Freq: Status: Active Created 02/25/17 16:52 [facility] (Rec: 02/25/17 16:52 [facility] [id number]) Skin Integrity, Impaired (Swing Bed) Start: 02/25/17 16: 52 Freq: Status: Active Created 02/25/17 16:52 [facility] (Rec: 02/25/17 16:52 [facility] [id number]) General - Cognitive Patterns Speech: Normal Thought Process: Intact Thought Content: Normal - Communication Select best description of speech pattern: Clear Speech Ability to express ideas and wants: Understood Understanding verbal content: Understands - Mood and Behavior Patterns Appearance: Well Groomed Mood: Normal Attitude: Cooperative Motor Activity: Calm Affect: Appropriate - Physical Functioning Activity Level: Up as tolerated Turning: Self ad trista ROM Ability: Moves all extremities Assistive Devices: Straight Cane Ambulation Ability: Independent Bed Mobility: Independent Transfer Ability: Independent Bathing Ability: Independent Personal Hygiene: Independent Dressing Ability: Independent Eating (Feeding) Ability: Independent Toileting Ability: Independent Administer Own Medication: Independent - Continence Bowel Pattern: Normal for Patient Bladder Pattern: Normal Meds/Allergies - Allergies Allergies Allergy/AdvReac Type Severity Reaction Status Date / Time onion Allergy Intermediate NAUSEA Verified 01/30/16 14:13 - Active Medications Current Medications Albuterol Sulfate () 2.5 mg INH Q6H PRN PRN Reason: WHEEZING Albuterol/Ipratropium (Duoneb) 3 ml INH RESP.Q4H.WA [facility] Last Admin: 02/28/17 05:57 Dose: 3 ml Amiodarone HCl (Pacerone) 200 mg PO DAILY [facility] Last Admin: 02/27/17 11:07 Dose: 200 mg Ascorbic Acid (Vitamin C) 1,000 mg PO BID [facility] Last Admin: 02/27/17 22:00 Dose: 1,000 mg Atorvastatin Calcium (Lipitor) 40 mg PO DAILY [facility] Last Admin: 02/27/17 11:07 Dose: 40 mg Bumetanide (Bumex) 2 mg PO BIDDIUR [facility] Last Admin: 02/27/17 17:46 Dose: 2 mg Cefdinir (Cefdinir) 300 mg PO Q12H [facility] Stop: 02/28/17 10:01 Last Admin: 02/27/17 21:59 Dose: 300 mg Clotrimazole (Lotrisone) 0.5 gm TOP BID PRN PRN Reason: DRY SKIN Doxycycline Hyclate (Vibramycin) 100 mg PO Q12H [facility] Stop: 02/28/17 10:01 Last Admin: 02/27/17 22:00 Dose: 100 mg Ferrous Sulfate (Iron) 325 mg PO WMEALS [facility] Last Admin: 02/27/17 17:46 Dose: 325 mg Insulin Detemir (Levemir Flextouch) 6 unit SQ QHS [facility] Last Admin: 02/27/17 21:59 Dose: 100 unit Levothyroxine Sodium (Synthroid) 150 mcg PO DAILYTHY [facility] Last Admin: 02/28/17 06:05 Dose: 150 mcg Magnesium Oxide (Mag Ox) 400 mg PO DAILY [facility] Last Admin: 02/27/17 11:06 Dose: 400 mg Metoprolol Tartrate (Lopressor) 50 mg PO BID [facility] Last Admin: 02/27/17 21:59 Dose: 50 mg Multivitamins/Minerals (Centrum) 1 tab PO DAILY [facility] Last Admin: 02/27/17 11:08 Dose: 1 tab Oxycodone/Acetaminophen (Percocet 10-325 Mg Tablet) 1 each PO Q4H PRN PRN Reason: Pain - General Oxycodone/Acetaminophen (Percocet 10-325 Mg Tablet) 2 each PO Q4H PRN PRN Reason: Pain - General Last Admin: 02/26/17 23:37 Dose: 2 each Patient Own Med: (Diclofenac Cream 1 %) 1 each TOP DAILY PRN PRN Reason: Pain - General Polyethylene Glycol (Miralax) 17 gm PO QHS [facility] Last Admin: 02/27/17 22:00 Dose: 17 gm Potassium Chloride (Klor-Con) 20 meq PO BID [facility] Last Admin: 02/27/17 21:59 Dose: 20 meq Ranitidine HCl (Zantac) 150 mg PO QHS [facility] Last Admin: 02/27/17 22:01 Dose: 150 mg Senna/Docusate Sodium (Senna Plus) 1 each PO QHS [facility] Last Admin: 02/27/17 22:00 Dose: 1 each Tamsulosin HCl (Flomax) 0.4 mg PO DAILY [facility] Last Admin: 02/27/17 11:06 Dose: 0.4 mg Vitamin D (Vitamin D3) 5,000 unit PO DAILY [facility] Last Admin: 02/27/17 11:07 Dose: 5,000 unit Warfarin Sodium (Coumadin) 1 mg PO SuTuTh [facility] Last Admin: 02/27/17 20:41 Dose: 1 mg Warfarin Sodium (Coumadin) 2 mg PO MoWeFrSa [facility] Objective - Vital Signs Vital Signs: Vital Signs - Last 24 Hrs Temp Pulse Pulse Resp BP Pulse Ox 02/28/17 05:57 71 20 98 02/27/17 21:57 73 20 98 02/27/17 18:10 78 16 02/27/17 14:27 74 16 97 02/27/17 10:49 80 15 91 L 02/27/17 09:27 97.0 F L 56 L 14 115/61 - General General Appearance: Alert, Oriented x3, Cooperative, No acute distress - Head Head exam: Atraumatic - Eye Eye exam: Normal appearance, EOMI - ENT ENT exam: Normal exam - Neck Neck exam: Normal inspection, Full ROM - Respiratory Respiratory exam: Normal lung sounds bilaterally - Cardiovascular Cardiovascular Exam: Regular rate, Normal rhythm, Normal heart sounds Peripheral Pulses: 1+: Dorsalis Pedis (R), Dorsalis Pedis (L) - GI/Abdominal GI/Abdominal exam: Soft, Normal bowel sounds. negative: Tenderness - exam: Deferred - Extremities Extremities exam: negative: Pedal edema - Neurological Neurological exam: Alert, CN II-XII intact, Oriented X3 - Psychiatric Psychiatric exam: Normal affect, Normal mood - Skin Skin exam: Other (Has chronic vascular wound lateral LLE, approx 3cm x 2cm, irregular borders, + hyperbole, wound bed dry. No evidence of infection. Daughter has been managing this wound for the past 16 months.) H&P Results - Labs Result Diagrams: 02/28/17 06:05 02/28/17 06:05 Labs Last 24 Hours: Laboratory Results - last 24 hr 02/26/17 02/27/17 02/27/17 12:00 07:10 07:10 WBC 10.0 RBC 4.52 Hgb 12.2 L Hct 38.7 L MCV 85.6 MCH 26.9 L MCHC 31.5 L RDW 14.3 Plt Count 210 MPV 10.6 H Gran % 76.9 Lymphocytes % 13.5 L Monocytes % 9.5 H Eosinophils % 0.0 Basophils % 0.1 PT 44.5 H INR 3.94 Sodium Potassium Chloride Carbon Dioxide Anion Gap BUN Creatinine Estimated GFR POC Glucose Random Glucose Calcium Total Bilirubin AST ALT Alkaline Phosphatase Total Protein Albumin Globulin Albumin/Globulin Ratio MRSA Specimen Source Nasal MRSA Culture Detected H 02/27/17 02/27/17 02/28/17 07:10 22:00 06:05 WBC 8.4 RBC 4.64 Hgb 12.4 L Hct 39.9 L MCV 86.0 MCH 26.7 L MCHC 31.1 L RDW 14.7 H Plt Count 225 MPV 11.0 H Gran % 75.6 Lymphocytes % 15.4 L Monocytes % 8.9 Eosinophils % 0.0 Basophils % 0.1 PT INR Sodium 139 Potassium 4.1 Chloride 96 L Carbon Dioxide 33.7 H Anion Gap 9.3 BUN 42 H Creatinine 1.3 H Estimated GFR 57 POC Glucose 259 H Random Glucose 159 H Calcium 9.3 Total Bilirubin 0.58 AST 37 ALT 50 Alkaline Phosphatase 100 Total Protein 7.2 Albumin 4.1 Globulin 3.1 Albumin/Globulin Ratio 1.3 MRSA Specimen Source MRSA Culture 02/28/17 06:05 WBC RBC Hgb Hct MCV MCH MCHC RDW Plt Count MPV Gran % Lymphocytes % Monocytes % Eosinophils % Basophils % PT INR Sodium 142 Potassium 4.1 Chloride 96 L Carbon Dioxide 35.9 H Anion Gap 10.1 BUN 42 H Creatinine 1.3 H Estimated GFR 57 POC Glucose Random Glucose 128 H Calcium 9.3 Total Bilirubin 0.68 AST 38 ALT 59 Alkaline Phosphatase 97 Total Protein 7.1 Albumin 4.1 Globulin 3.0 Albumin/Globulin Ratio 1.4 MRSA Specimen Source MRSA Culture Discharge Potential - Discharge Needs Community Services Used Prior to Admission: None Patient Discharge Plan Description: Return Home Community Services Needed at Discharge: Occupational Therapy, Physical Therapy Plan - Swing Bed Certification Initial Certification Due: 02/25/17 14 Day Re-Cert Due: 03/11/17 44 Day Re-Cert Due: 04/10/17 74 Day Re-Cert Due: 05/10/17 - Detailed Diagnosis and Plan (1) Generalized weakness Current Visit: Yes Status: Acute Base Code: R53.1 - WEAKNESS Comment: 02/28/17- Admitted for generalized weakness and general deconditioning s /p prolonged hospitalization for HCAP and exacerbation of CHF with subsequent development of RLE cellulitis. Has chronic LLE vascular wound - PT/OT evaluat and treat - nursing to encourage frequent ambulation and independence of ADL (2) Healthcare-associated pneumonia Current Visit: Yes Status: Acute Base Code: J18.9 - PNEUMONIA, UNSPECIFIED ORGANISM Comment: 02/28/17 - afebrile, WBC normal. Continues with intermittent productive cough, no DEYSI - continue Vantin to complete 10 day regimen (3) CHF (congestive heart failure) Current Visit: Yes Status: Acute Qualifiers: Congestive heart failure type: unspecified congestive heart failure type Congestive heart failure chronicity: unspecified congestive heart failure chronicity Qualified Code(s): I50.9 - Heart failure, unspecified Base Code: I50.9 - HEART FAILURE, UNSPECIFIED Comment: 02/28/17 Exacerbation of chronic CHF, 25lb overall weight loss during hospitalizaiton - Continue Bumex 2mg BID per cardiology recommendations from [facility] - will be monitoring renal function closely. BUN/Cr stable (42/1.7) - weight weekly - follow up outpatient vascular team at [facility] for upper arm BP discrepency (4) Anemia Current Visit: Yes Status: Chronic Base Code: D64.9 - ANEMIA, UNSPECIFIED Comment: 02/28/17 - admit Hgb 12.0 and remaining stable - continue iron TID (5) Cellulitis Current Visit: Yes Status: Acute Base Code: L03.90 - CELLULITIS, UNSPECIFIED Comment: 02/28/17- cellulitis 2nd excessive BLE edema upon admittsion to [facility]. 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 - accu checks BID - diabetic diet - follow up PCP 1-2 weeks after discharge (7) DVT prophylaxis Current Visit: Yes Status: Acute Base Code: [id number] - Comment: 02/28/17- moderate risk due to age and prolonged hospitalization. Will continue Coumadin 2mg QD with serial INRs and dose adjustments accordingly to keep INR therapeutic (8) Full code status Current Visit: Yes Status: Acute Base Code: Z78.9 - OTHER SPECIFIED HEALTH STATUS Comment: 02/28/17 will remain full code during Swing Bed admission
--- NOTE | 2017-02-28 09:51 | Physical Therapy Tx Note ---
Physical Therapy Tx Note - Treatment Note Tolerated: Good Total Time Spent With Patient: 30 Physical Therapy Tx Note: Detail (The patient was up in a chair when PT arrived and stated he had already completed LE exercises ( without resistive band). The patient was complaining of groin pain. The patient ambulated with wheeled walker a distance of 135 feet with supervision. The patient continues to complain of groin pain when ambulating and exhibits decreased R hip flexion. PT completed MFR to R hip flexors and UE exercises with green T-band : rowing, horizontal abduction, bicep curls, tricep curls all until fatigued. The patient reports his groin pain was greatly decreased following MFR techniques. The patient has minimal pain in R shoulder with UE exercises.) Physical Therapy Problem List: Detail (1) Decreased R LE strength 2) Impaired balance 3) Decreased ability to complete sustained physical activity) Physical Therapy Goals: 1)Assess bed mobility. 2) The patient will ambulate with assistive device distances of 300 feet indpendently on levels and steps. 3 ) The patient's R LE strength will improve 1/3 muscle grade. 4) Improve the patient's balance 3 to 4 points on Tinetti Balance Scale. Physical Therapy Plan: PT M-F 1 to 2 times a day for LE strengthening and balance exercises, transfer and gait training.
[2017-02-28] MEDS: FERROUS SULFATE 325 MG TAB PO SCH ×3 (10:33→18:49)
[2017-02-28] MEDS: MULTIVITAMINS/MINERALS TABLET PO SCH (10:33)
[2017-02-28] MEDS: CHOLECALCIFEROL 1,000 UNIT TABLET PO SCH (10:34)
[2017-02-28] MEDS: ATORVASTATIN 20 MG TABLET PO SCH (10:34)
[2017-02-28] MEDS: BUMETANIDE 1 MG TABLET PO SCH ×2 (10:35→16:04)
[2017-02-28] MEDS: AMIODARONE HCL 200 MG TABLET PO SCH (10:35)
[2017-02-28] MEDS: MAGNESIUM OXIDE 400 MG TABLET PO SCH (10:36)
[2017-02-28] MEDS: ASCORBIC ACID 500 MG TAB PO SCH ×2 (10:36→22:19)
[2017-02-28] MEDS: METOPROLOL TART 50 MG TABLET PO SCH ×2 (10:37→22:19)
[2017-02-28] MEDS: POTASSIUM CHLORIDE 20 MEQ TABLET PO SCH ×2 (10:37→22:20)
[2017-02-28] MEDS: CEFDINIR 300 MG CAPSULE PO SCH (10:38)
[2017-02-28] MEDS: DOXYCYCLINE HYCLATE 100 MG CAPSULE PO SCH (10:38)
[2017-02-28] MEDS: TAMSULOSIN HCL 0.4 MG CAP.ER.24H PO SCH (10:38)
--- NOTE | 2017-02-28 14:36 | Physical Therapy Tx Note ---
Physical Therapy Tx Note - Treatment Note Tolerated: Good Total Time Spent With Patient: 40 Physical Therapy Tx Note: Detail (Pt was sitting in chair visiting with a friend upon arrival. Pt was eager to go up to Rehab and do ex's. Pt states pain in hip is 6/10 today. Pt states MTT earlier today helped. Pt dressed with min assist of getting his clothes out of the closet, but donned shirt and shoes independently. Pt completed all transfers independently. Pt ambulated 175 ft with front wheeled walker with stand by assist and following with a wheelchair. Pt stopped prior to the elevator and was pushed in wheelchair the remaining way to the therapy department. Pt completed ex's of Nustep x 10 min. level 3 with some fatigue. Pt ambulated 75 ft to treatment table in PT dept. and sat at edge of table. Ex's of theraband bilateral shouder ext, rowing, bilateral hip abduction all with green theraband. hip adduction with pink ball, scapular squeezes, gluteal squeezes all x 10 each. Pt walked 10 ft to backed chair and sat for application of ice pack to right hip x 20 min to decrease swelling and discomfort. Pt ambulated 40 ft. with walker towards elevator to return to room and pushed in wheelchair the rest of the way to pt's room. Pt transferred to chair in room to rest. Pt states very fatigued after ex's but no change in pain after complete treatment. Pt instructed to cont with ex's over the weekend and to ambulate as vishnu. Cont treatment on Friday for building endurance with ex's and increase strength. Pt was left with nursing call button, and fresh ice water per pt. request.) Physical Therapy Problem List: Detail (1) Decreased R LE strength 2) Impaired balance 3) Decreased ability to complete sustained physical activity) Physical Therapy Goals: 1)Assess bed mobility. 2) The patient will ambulate with assistive device distances of 300 feet indpendently on levels and steps. 3 ) The patient's R LE strength will improve 1/3 muscle grade. 4) Improve the patient's balance 3 to 4 points on Tinetti Balance Scale. Prognosis: Good Physical Therapy Plan: PT M-F 1 to 2 times a day for LE strengthening and balance exercises, transfer and gait training.
[2017-02-28] MEDS: OXYCODONE/APAP 10MG-325MG TABLET PO PRN (16:02)
[2017-02-28] MEDS: LEVEMIR FLEXTOUCH 100 UNIT/ML INSULIN PEN SQ SCH (22:16)
[2017-02-28] MEDS: POLYETHYLENE GLY 17 GM PACKET PO SCH (22:19)
[2017-02-28] MEDS: SENNOSIDES/DOCUSATE SODIUM UD CAPSULE PO SCH (22:19)
[2017-02-28] MEDS: RANITIDINE HCL 150 MG TABLET PO SCH (22:20)
[2017-02-28] MEDS: WARFARIN 1 MG TABLET PO SCH (22:20)
[2017-03-01] MEDS: IPRATROPIUM/ALBUTEROL (0.5MG/3MG) NEB INH SCH ×5 (05:52→22:00)
[2017-03-01] MEDS: LEVOTHYROXINE SODIUM 150 MCG TABLET PO SCH (06:59)
[2017-03-01] MEDS: WARFARIN 1 MG TABLET PO SCH ×2 (08:34→19:04)
[2017-03-01 09:08] LABS: HEMATOCRIT 40.9 % (42.0-52.0); HEMOGLOBIN 12.6 gm/dl (14.0-18.0); MEAN CORPUSCULAR HGB CONC 30.8 g/dl (32-36); MEAN PLATELET VOLUME 11.1 fl (7.4-10.4); PLATELET COUNT 234 K/uL (130-400); RED BLOOD COUNT 4.65 M/uL (4.40-5.70); RED CELL DISTRIBUTION WIDTH 14.9 % (11.5-14.5); WHITE BLOOD COUNT W/O DIFF 7.3 K/uL (4.2-12.2)
[2017-03-01] MEDS: MULTIVITAMINS/MINERALS TABLET PO SCH (09:10)
[2017-03-01] MEDS: FERROUS SULFATE 325 MG TAB PO SCH ×4 (09:10→16:55)
[2017-03-01] MEDS: BUMETANIDE 1 MG TABLET PO SCH ×2 (09:11→16:10)
[2017-03-01] MEDS: TAMSULOSIN HCL 0.4 MG CAP.ER.24H PO SCH (09:11)
[2017-03-01] MEDS: POTASSIUM CHLORIDE 20 MEQ TABLET PO SCH ×2 (09:11→21:44)
[2017-03-01] MEDS: MAGNESIUM OXIDE 400 MG TABLET PO SCH (09:11)
[2017-03-01] MEDS: AMIODARONE HCL 200 MG TABLET PO SCH (09:11)
[2017-03-01] MEDS: ASCORBIC ACID 500 MG TAB PO SCH ×2 (09:11→21:45)
[2017-03-01] MEDS: METOPROLOL TART 50 MG TABLET PO SCH ×2 (09:12→21:44)
[2017-03-01] MEDS: CHOLECALCIFEROL 1,000 UNIT TABLET PO SCH (09:12)
[2017-03-01 09:24] LABS: INR 2.9; PROTHROMBIN TIME (PATIENT) 32.8 SECONDS (9.5-12.1)
[2017-03-01 09:28] LABS: ALB/GLOB RATIO 1.3 (1.1-1.8); ALKALINE PHOSPHATASE 101 U/L (38-126); ALT/SGPT 68 U/L (21-72); ANION GAP 7.1 (7-16); AST/SGOT 52 U/L (17-59); BILIRUBIN,TOTAL 0.74 mg/dL (0.2-1.3); BLOOD UREA NITROGEN 40 mg/dL (9-20); CARBON DIOXIDE 37.9 mmol/L (22-30); CREATININE 1.2 mg/dL (0.66-1.25); EST GLOMERULAR FILTRATION RATE > 60 ml/min; GLUCOSE,RANDOM 103 mg/dL (70-110)
[2017-03-01] MEDS ORDERED: POLYETHYLENE GLY 17 GM PACKET PO ONE (09:52)
[2017-03-01 09:55] LABS: GRAN % 75.8 % (47-80)
[2017-03-01 09:56] LABS: BASO % 0.1 % (0-6); EOS % 2.6 % (0-6); LYMPH % 14.2 % (16-45); MONO % 7.3 % (0-9)
[2017-03-01] MEDS: ATORVASTATIN 20 MG TABLET PO SCH (11:06)
[2017-03-01] MEDS: MAGNESIUM HYDROXIDE 30 ML UDC PO PRN (19:04)
[2017-03-01] MEDS: POLYETHYLENE GLY 17 GM PACKET PO SCH (21:44)
[2017-03-01] MEDS: RANITIDINE HCL 150 MG TABLET PO SCH (21:44)
[2017-03-01] MEDS: SENNOSIDES/DOCUSATE SODIUM UD CAPSULE PO SCH (21:44)
[2017-03-01] MEDS: LEVEMIR FLEXTOUCH 100 UNIT/ML INSULIN PEN SQ SCH (21:46)
[2017-03-02] MEDS: IPRATROPIUM/ALBUTEROL (0.5MG/3MG) NEB INH SCH ×5 (06:09→21:50)
[2017-03-02] MEDS: LEVOTHYROXINE SODIUM 150 MCG TABLET PO SCH (06:25)
[2017-03-02 08:04] LABS: BASO % 0.2 % (0-6); EOS % 4.1 % (0-6); GRAN % 74.7 % (47-80); HEMOGLOBIN 12.4 gm/dl (14.0-18.0); LYMPH % 11.9 % (16-45); MEAN CELL VOLUME 87.3 fl (81-97); MONO % 9.1 % (0-9); PLATELET COUNT 216 K/uL (130-400); RED BLOOD COUNT 4.58 M/uL (4.40-5.70); RED CELL DISTRIBUTION WIDTH 14.7 % (11.5-14.5); WHITE BLOOD COUNT W/O DIFF 9.1 K/uL (4.2-12.2)
[2017-03-02] MEDS: FERROUS SULFATE 325 MG TAB PO SCH ×3 (08:18→17:25)
[2017-03-02] MEDS: MULTIVITAMINS/MINERALS TABLET PO SCH (09:02)
[2017-03-02] MEDS: BUMETANIDE 1 MG TABLET PO SCH ×2 (09:02→15:39)
[2017-03-02] MEDS: MAGNESIUM OXIDE 400 MG TABLET PO SCH (09:03)
[2017-03-02] MEDS: METOPROLOL TART 50 MG TABLET PO SCH ×2 (09:03→21:34)
[2017-03-02] MEDS: ATORVASTATIN 20 MG TABLET PO SCH (09:03)
[2017-03-02] MEDS: POTASSIUM CHLORIDE 20 MEQ TABLET PO SCH ×2 (09:03→21:34)
[2017-03-02] MEDS: TAMSULOSIN HCL 0.4 MG CAP.ER.24H PO SCH (09:03)
[2017-03-02] MEDS: CHOLECALCIFEROL 1,000 UNIT TABLET PO SCH (09:04)
[2017-03-02] MEDS: ASCORBIC ACID 500 MG TAB PO SCH ×2 (09:04→21:34)
[2017-03-02] MEDS: AMIODARONE HCL 200 MG TABLET PO SCH (09:04)
[2017-03-02 09:51] LABS: ALB/GLOB RATIO 1.3 (1.1-1.8); ALBUMIN 3.5 gm/dL (3.5-5.0); ALKALINE PHOSPHATASE 95 U/L (38-126); ALT/SGPT 60 U/L (21-72); ANION GAP 10.6 (7-16); AST/SGOT 39 U/L (17-59); BILIRUBIN,TOTAL 0.87 mg/dL (0.2-1.3); BLOOD UREA NITROGEN 34 mg/dL (9-20); CARBON DIOXIDE 32.4 mmol/L (22-30); CREATININE 1.2 mg/dL (0.66-1.25); EST GLOMERULAR FILTRATION RATE > 60 ml/min; GLUCOSE,RANDOM 179 mg/dL (70-110); TOTAL PROTEIN 6.1 gm/dL (6.3-8.2)
[2017-03-02] MEDS: WARFARIN 1 MG TABLET PO SCH (21:33)
[2017-03-02] MEDS: POLYETHYLENE GLY 17 GM PACKET PO SCH (21:33)
[2017-03-02] MEDS: RANITIDINE HCL 150 MG TABLET PO SCH (21:34)
[2017-03-02] MEDS: SENNOSIDES/DOCUSATE SODIUM UD CAPSULE PO SCH (21:34)
[2017-03-02] MEDS: LEVEMIR FLEXTOUCH 100 UNIT/ML INSULIN PEN SQ SCH (21:35)
[2017-03-03] MEDS: IPRATROPIUM/ALBUTEROL (0.5MG/3MG) NEB INH SCH ×5 (06:01→21:46)
[2017-03-03] MEDS: LEVOTHYROXINE SODIUM 150 MCG TABLET PO SCH (06:32)
[2017-03-03 07:00] LABS: BASO % 0.2 % (0-6); EOS % 6.1 % (0-6); GRAN % 66.8 % (47-80); HEMATOCRIT 37.7 % (42.0-52.0); HEMOGLOBIN 11.9 gm/dl (14.0-18.0); LYMPH % 19.3 % (16-45); MEAN CELL VOLUME 87.5 fl (81-97); MEAN CORPUSCULAR HEMOGLOBIN 27.6 pg (27-33); MEAN CORPUSCULAR HGB CONC 31.6 g/dl (32-36); MEAN PLATELET VOLUME 10.9 fl (7.4-10.4); MONO % 7.6 % (0-9); PLATELET COUNT 207 K/uL (130-400); RED BLOOD COUNT 4.31 M/uL (4.40-5.70); RED CELL DISTRIBUTION WIDTH 14.7 % (11.5-14.5); WHITE BLOOD COUNT W/O DIFF 5.9 K/uL (4.2-12.2)
[2017-03-03 07:08] LABS: INR 2.35; PROTHROMBIN TIME (PATIENT) 26.5 SECONDS (9.5-12.1)
[2017-03-03 07:18] LABS: ALB/GLOB RATIO 1.2 (1.1-1.8); ALBUMIN 3.4 gm/dL (3.5-5.0); BILIRUBIN,TOTAL 0.73 mg/dL (0.2-1.3); CREATININE 1.3 mg/dL (0.66-1.25); TOTAL PROTEIN 6.2 gm/dL (6.3-8.2)
[2017-03-03] MEDS: FERROUS SULFATE 325 MG TAB PO SCH ×3 (08:06→17:36)
[2017-03-03] MEDS: BUMETANIDE 1 MG TABLET PO SCH ×2 (09:04→15:42)
[2017-03-03] MEDS: MULTIVITAMINS/MINERALS TABLET PO SCH (09:05)
[2017-03-03] MEDS: TAMSULOSIN HCL 0.4 MG CAP.ER.24H PO SCH (09:05)
[2017-03-03] MEDS: POTASSIUM CHLORIDE 20 MEQ TABLET PO SCH ×2 (09:05→22:06)
[2017-03-03] MEDS: METOPROLOL TART 50 MG TABLET PO SCH ×2 (09:06→22:07)
[2017-03-03] MEDS: AMIODARONE HCL 200 MG TABLET PO SCH (09:06)
[2017-03-03] MEDS: ASCORBIC ACID 500 MG TAB PO SCH ×2 (09:06→22:06)
[2017-03-03] MEDS: MAGNESIUM OXIDE 400 MG TABLET PO SCH (09:06)
[2017-03-03] MEDS: ATORVASTATIN 20 MG TABLET PO SCH (09:06)
[2017-03-03] MEDS: CHOLECALCIFEROL 1,000 UNIT TABLET PO SCH (09:07)
--- NOTE | 2017-03-03 10:57 | Physical Therapy Tx Note ---
Physical Therapy Tx Note - Treatment Note Tolerated: Good Total Time Spent With Patient: 35 Physical Therapy Tx Note: Detail (The patient was up in chair when PT arrived. The patient ambulated with wheeled walker with supervision for safety a distance of 330 feet x 1 and 100 feet x1 ( The patient needed wheelchair to return to room.) In Rehab department: Nu step x 10 min level 2, pullies x 6 plates shoulder extension and rowing x 10 reps, seated LAQ, hip marching, hip adductor squeezes all until fatigued. The patient complained of R groin pain and UE pain at times with exercises. The patient requires cueing not to overdo it.) Physical Therapy Problem List: Detail (1) Decreased R LE strength 2) Impaired balance 3) Decreased ability to complete sustained physical activity) Physical Therapy Goals: 1)Assess bed mobility. 2) The patient will ambulate with assistive device distances of 300 feet indpendently on levels and steps. 3 ) The patient's R LE strength will improve 1/3 muscle grade. 4) Improve the patient's balance 3 to 4 points on Tinetti Balance Scale. Physical Therapy Plan: PT M-F 1 to 2 times a day for LE strengthening and balance exercises, transfer and gait training.
--- NOTE | 2017-03-03 13:50 | Physical Therapy Tx Note ---
Physical Therapy Tx Note - Treatment Note Total Time Spent With Patient: 30 Physical Therapy Tx Note: Detail (Pt was seated in chair upon arrival. Pt states sore and tired from PT this a.m., but willing to go for a walk. Pt ambulated 400 ft. with front wheeled walker, without rest period but slow with gait. Pt completed transfers independently. Pt required frequent verbal cues to decrease hip ER with gait and toe out tendency. MTT x 15 min. of MFR and TPR to right hip, ITB and hip adductors, as well as scar mobilization to right hip, all with patient sitting. Followed by cold pack to right hip x 20 min. PT reclined in chair with call light and phone within reach on bedside table. PT vishnu well but fatigued after walk. PT to continue tomorrow a.m.) Physical Therapy Problem List: Detail (1) Decreased R LE strength 2) Impaired balance 3) Decreased ability to complete sustained physical activity) Physical Therapy Goals: 1)Assess bed mobility. 2) The patient will ambulate with assistive device distances of 300 feet indpendently on levels and steps. 3 ) The patient's R LE strength will improve 1/3 muscle grade. 4) Improve the patient's balance 3 to 4 points on Tinetti Balance Scale. Prognosis: Good Physical Therapy Plan: PT M-F 1 to 2 times a day for LE strengthening and balance exercises, transfer and gait training.
[2017-03-03] MEDS: LEVEMIR FLEXTOUCH 100 UNIT/ML INSULIN PEN SQ SCH (22:03)
[2017-03-03] MEDS: SENNOSIDES/DOCUSATE SODIUM UD CAPSULE PO SCH (22:06)
[2017-03-03] MEDS: WARFARIN 1 MG TABLET PO SCH (22:06)
[2017-03-03] MEDS: RANITIDINE HCL 150 MG TABLET PO SCH (22:06)
[2017-03-03] MEDS: POLYETHYLENE GLY 17 GM PACKET PO SCH (22:06)
[2017-03-04] MEDS: IPRATROPIUM/ALBUTEROL (0.5MG/3MG) NEB INH SCH ×5 (05:56→23:04)
[2017-03-04 06:35] LABS: ALB/GLOB RATIO 1.3 (1.1-1.8); ALBUMIN 3.8 gm/dL (3.5-5.0); ANION GAP 9.7 (7-16); BILIRUBIN,TOTAL 0.84 mg/dL (0.2-1.3); CARBON DIOXIDE 33.3 mmol/L (22-30); CREATININE 1.3 mg/dL (0.66-1.25); TOTAL PROTEIN 6.7 gm/dL (6.3-8.2)
[2017-03-04 06:39] LABS: BASO % 0.3 % (0-6); EOS % 5.5 % (0-6); HEMATOCRIT 38.8 % (42.0-52.0); HEMOGLOBIN 12.2 gm/dl (14.0-18.0); LYMPH % 23.6 % (16-45); MEAN CORPUSCULAR HGB CONC 31.4 g/dl (32-36); MONO % 8.6 % (0-9); PLATELET COUNT 220 K/uL (130-400); RED BLOOD COUNT 4.46 M/uL (4.40-5.70); RED CELL DISTRIBUTION WIDTH 14.7 % (11.5-14.5); WHITE BLOOD COUNT W/O DIFF 6.1 K/uL (4.2-12.2)
[2017-03-04 06:40] LABS: MEAN CORPUSCULAR HEMOGLOBIN 27.3 pg (27-33)
[2017-03-04] MEDS: FERROUS SULFATE 325 MG TAB PO SCH ×4 (07:46→17:45)
[2017-03-04] MEDS: LEVOTHYROXINE SODIUM 150 MCG TABLET PO SCH (07:46)
[2017-03-04] MEDS: BUMETANIDE 1 MG TABLET PO SCH ×2 (09:31→15:54)
[2017-03-04] MEDS: TAMSULOSIN HCL 0.4 MG CAP.ER.24H PO SCH (09:32)
[2017-03-04] MEDS: POTASSIUM CHLORIDE 20 MEQ TABLET PO SCH ×2 (09:32→22:32)
[2017-03-04] MEDS: MULTIVITAMINS/MINERALS TABLET PO SCH (09:32)
[2017-03-04] MEDS: MAGNESIUM OXIDE 400 MG TABLET PO SCH (09:33)
[2017-03-04] MEDS: METOPROLOL TART 50 MG TABLET PO SCH ×2 (09:33→22:32)
[2017-03-04] MEDS: AMIODARONE HCL 200 MG TABLET PO SCH (09:33)
[2017-03-04] MEDS: ATORVASTATIN 20 MG TABLET PO SCH (09:33)
[2017-03-04] MEDS: ASCORBIC ACID 500 MG TAB PO SCH ×2 (09:34→22:32)
[2017-03-04] MEDS: CHOLECALCIFEROL 1,000 UNIT TABLET PO SCH (09:34)
--- NOTE | 2017-03-04 09:37 | Physical Therapy Tx Note ---
Physical Therapy Tx Note - Treatment Note Tolerated: Good Total Time Spent With Patient: 30 Physical Therapy Tx Note: Detail (The patient was up in chair when PT arrived. The patient ambulated 65 feet x 1 with 2 canes with supervision for safety only. The patient ambulated on 3 stairs with use of one railing and one cane, using reciprocal gait pattern with supervision for safety only. The patient completed bilateral UE strengthening exercises including: green T-Band scapular retraction, rowing, bicep curls and tricep curls until fatigued and modified D1 PNF pattern x 7 reps. The patient is progressing well.) Physical Therapy Problem List: Detail (1) Decreased R LE strength 2) Impaired balance 3) Decreased ability to complete sustained physical activity) Physical Therapy Goals: 1)Assess bed mobility. 2) The patient will ambulate with assistive device distances of 300 feet indpendently on levels and steps. 3 ) The patient's R LE strength will improve 1/3 muscle grade. 4) Improve the patient's balance 3 to 4 points on Tinetti Balance Scale. Physical Therapy Plan: PT M-F 1 to 2 times a day for LE strengthening and balance exercises, transfer and gait training.
[2017-03-04] MEDS: OXYCODONE/APAP 10MG-325MG TABLET PO PRN (09:38)
[2017-03-04] MEDS: MAGNESIUM HYDROXIDE 30 ML UDC PO PRN (13:06)
--- NOTE | 2017-03-04 15:20 | Physical Therapy Tx Note ---
Addendum entered and electronically signed by Rosemary Hammond 03/05/17 09:58: Pt. was independent with transfers, and ambulated 130 ft. with two straight canes with stand by assist. Pt was then wheeled in wheelchair to PT department by therapist. Pt completed ex's of Nustep x 15 min. at level 2. Pt ambulated with 2 canes x 35 ft to table in rehab gym area. Pt completed ex's of hip add with ball x 15. LAQ x 10 bilateral, resisted HS curl, with green theraband 2x 10 left, 1x 10 and 1x 8 with right LE. Resisted hip press with green strap and patient resistance x 10 bilateral. Resisted Ab lean backs with black theraband seated at edge of table. Bilateral seated ankle DF and PF x 15. seated marches x 10 bilateral. Pt ambulated x 55 ft. to elevator. Pt was wheeled in wheelchair back to room. Transferred sit to stand with minimal assist x 2, and walked with 2 canes back to chair. Ice pack to right hip x 15 min. Pt vishnu fair with fatigue after treatment. Pt states will only use walker the rest of the day due to fatigue. Original Note: Physical Therapy Tx Note - Treatment Note Tolerated: Good Total Time Spent With Patient: 45 Physical Therapy Tx Note: Detail (Pt. was resting in his chair upon arrival. He was eager to go up to PT department to exercise.) Physical Therapy Problem List: Detail (1) Decreased R LE strength 2) Impaired balance 3) Decreased ability to complete sustained physical activity) Physical Therapy Goals: 1)Assess bed mobility. 2) The patient will ambulate with assistive device distances of 300 feet indpendently on levels and steps. 3 ) The patient's R LE strength will improve 1/3 muscle grade. 4) Improve the patient's balance 3 to 4 points on Tinetti Balance Scale. Physical Therapy Plan: PT M-F 1 to 2 times a day for LE strengthening and balance exercises, transfer and gait training.
[2017-03-04] MEDS: WARFARIN 1 MG TABLET PO SCH (19:43)
[2017-03-04] MEDS: RANITIDINE HCL 150 MG TABLET PO SCH (22:32)
[2017-03-04] MEDS: SENNOSIDES/DOCUSATE SODIUM UD CAPSULE PO SCH (22:32)
[2017-03-04] MEDS: POLYETHYLENE GLY 17 GM PACKET PO SCH (22:33)
[2017-03-04] MEDS: LEVEMIR FLEXTOUCH 100 UNIT/ML INSULIN PEN SQ SCH (22:35)
[2017-03-05] MEDS: IPRATROPIUM/ALBUTEROL (0.5MG/3MG) NEB INH SCH ×5 (06:15→22:21)
[2017-03-05] MEDS: LEVOTHYROXINE SODIUM 150 MCG TABLET PO SCH (06:36)
[2017-03-05 07:10] LABS: INR 1.72; PROTHROMBIN TIME (PATIENT) 19.4 SECONDS (9.5-12.1)
[2017-03-05] MEDS: FERROUS SULFATE 325 MG TAB PO SCH (08:26)
[2017-03-05] MEDS: CHOLECALCIFEROL 1,000 UNIT TABLET PO SCH (09:50)
[2017-03-05] MEDS: ASCORBIC ACID 500 MG TAB PO SCH ×2 (09:51→22:15)
[2017-03-05] MEDS: ATORVASTATIN 20 MG TABLET PO SCH (09:51)
[2017-03-05] MEDS: METOPROLOL TART 50 MG TABLET PO SCH ×2 (09:51→22:16)
[2017-03-05] MEDS: AMIODARONE HCL 200 MG TABLET PO SCH (09:51)
[2017-03-05] MEDS: MULTIVITAMINS/MINERALS TABLET PO SCH (09:51)
[2017-03-05] MEDS: TAMSULOSIN HCL 0.4 MG CAP.ER.24H PO SCH (09:51)
[2017-03-05] MEDS: BUMETANIDE 1 MG TABLET PO SCH ×2 (09:51→15:58)
[2017-03-05] MEDS: POTASSIUM CHLORIDE 20 MEQ TABLET PO SCH ×2 (09:51→22:16)
[2017-03-05] MEDS: MAGNESIUM OXIDE 400 MG TABLET PO SCH (09:51)
--- NOTE | 2017-03-05 11:23 | Physical Therapy Tx Note ---
Physical Therapy Tx Note - Treatment Note Tolerated: Good Total Time Spent With Patient: 35 Physical Therapy Tx Note: Detail (Patient states 5-6/10 pain in right hip. Patient transferred sit to and from stand independently. Patient ambulated 423 feet with wheeled walker SBA x1. Patient performed the following exercises x10 reps each: seated marching, LAQ, hamstring curls with green theraband, seated heel raises, seated toe raises, isometric hip adduction, and seated hip abduction with green theraband. Patient transferred sit to and from stand independently. Patient ambulated 58 feet with wheeled walker SBA x1. Patient performed Nustep L3 x11 minutes. Patient ambulated 51 feet with wheeled walker. Patinet transferred sit to and from stand independently. Patient ambulated 5 feet with wheeled walker. Patient tolerated treatment well. Patient displays decreased strength and endurance with seated marching, LAQ, and Nustep. Patient reports fatigued after treatment. Patient was left seated in chair with call light within reach.) Physical Therapy Problem List: Detail (1) Decreased R LE strength 2) Impaired balance 3) Decreased ability to complete sustained physical activity) Physical Therapy Goals: 1)Assess bed mobility. 2) The patient will ambulate with assistive device distances of 300 feet indpendently on levels and steps. 3 ) The patient's R LE strength will improve 1/3 muscle grade. 4) Improve the patient's balance 3 to 4 points on Tinetti Balance Scale. Prognosis: Good Physical Therapy Plan: PT M-F 1 to 2 times a day for LE strengthening and balance exercises, transfer and gait training.
--- NOTE | 2017-03-05 14:27 | Physical Therapy Tx Note ---
Physical Therapy Tx Note - Treatment Note Tolerated: Good Total Time Spent With Patient: 40 Physical Therapy Tx Note: Detail (Pt was resting in chair upon arrival. Pt states still sore from PT this a.m. Pt states eager to ex this afternoon. Pt ambulated with 2 canes x 200 ft.with stand by assist towards PT department, wheeled in wheelchair the remainder of the way. Pt completed ex's at edge of table of LAQ, resisted shoulder rowing with green theraband, resisted shoulder ext, and chest press with green theraband all ex's completed bilaterally. Pt also completed seated ankle df, pf, and ankle ROM ex's on round balance board, bilateral scap squeezes. all x 10 each. Pt ambulated with 2 canes with stand by assist from table to rail in [place]. Pt completed standing ankle df and pf x 15 each, standing HS curl x 5 bilaterally. Pt completed side stepping x 10 ft. x 3 bilaterally. Pt was wheeled back to room due to pt stating feeling fatigued. ICe pack applied to right hip with pt sitting in chair in room. Pt states no increase in pain but severely fatigued and a "bit sore". To continue with ex's to increase strength and endurance.) Physical Therapy Problem List: Detail (1) Decreased R LE strength 2) Impaired balance 3) Decreased ability to complete sustained physical activity) Physical Therapy Goals: 1)Assess bed mobility. 2) The patient will ambulate with assistive device distances of 300 feet indpendently on levels and steps. 3 ) The patient's R LE strength will improve 1/3 muscle grade. 4) Improve the patient's balance 3 to 4 points on Tinetti Balance Scale. Prognosis: Good Physical Therapy Plan: PT M-F 1 to 2 times a day for LE strengthening and balance exercises, transfer and gait training.
[2017-03-05] MEDS: OXYCODONE/APAP 10MG-325MG TABLET PO PRN (14:33)
--- NOTE | 2017-03-05 17:21 | Physician Progress Note ---
Subjective - Date Date of Progress Note: 03/05/17 - Admitting Diagnosis Diagnosis: Deconditioning due to CHF and Pneumonia. htn, hcap, hypothyroidism, cellulitis, bilateral edema of lower extremity, T2DM - Subjective Nursing Care Plan Problem List Activity Intolerance (Swing Bed) Start: 02/25/17 15: 08 Freq: Status: Active Created 02/25/17 15:08 [facility] (Rec: 02/25/17 15:08 [facility] [id number]) Knowledge Deficit (Swing Bed) Start: 02/25/17 15: 08 Freq: Status: Active Created 02/25/17 15:08 [facility] (Rec: 02/25/17 15:08 [facility] [id number]) Pain (Swing Bed) Start: 02/25/17 15: 08 Freq: Status: Active Created 02/25/17 15:08 [facility] (Rec: 02/25/17 15:08 [id number]) Risk For Infection (Swing Bed) Start: 02/25/17 16: 52 Freq: Status: Active Created 02/25/17 16:52 [facility] (Rec: 02/25/17 16:52 [id number]) Skin Integrity, Impaired (Swing Bed) Start: 02/25/17 16: 52 Freq: Status: Active Created 02/25/17 16:52 [facility] (Rec: 02/25/17 16:52 [facility] [id number]) Subjective: Patient states he is doing well. He says he does get tired easily when doing therapy but feels like his stamina is getting a little better every day. He denies cough, shortness of breath. He has been wearing compression hose daily and has actually been measuring his leg circumference. He denies any swelling in his feet. He reports constipation since starting the iron TID. at home was only taking it once daily and has had problems with constipation in the past. states he is anticipating making the transition to home sometime next week. General - Cognitive Patterns Speech: Normal Thought Process: Intact Thought Content: Normal - Communication Select best description of speech pattern: Clear Speech Ability to express ideas and wants: Understood Understanding verbal content: Understands - Mood and Behavior Patterns Appearance: Well Groomed Mood: Normal Attitude: Cooperative Motor Activity: Calm Affect: Appropriate - Physical Functioning Activity Level: Up as tolerated Turning: Self ad trista ROM Ability: Moves all extremities Assistive Devices: Straight Cane, 2 Wheel Walker Ambulation Ability: Needs Assist Bed Mobility: Independent Transfer Ability: Independent Bathing Ability: Needs Assist Personal Hygiene: Needs Assist Dressing Ability: Needs Assist Eating (Feeding) Ability: Independent Toileting Ability: Independent Administer Own Medication: Independent - Continence Bowel Pattern: Normal for Patient Bladder Pattern: Normal Meds/Allergies - Allergies Allergies Allergy/AdvReac Type Severity Reaction Status Date / Time onion Allergy Intermediate NAUSEA Verified 01/30/16 14:13 - Active Medications Current Medications Albuterol Sulfate () 2.5 mg INH Q6H PRN PRN Reason: WHEEZING Albuterol/Ipratropium (Duoneb) 3 ml INH RESP.Q4H.[facility] Last Admin: 03/05/17 14:02 Dose: 3 ml Amiodarone HCl (Pacerone) 200 mg PO DAILY [facility] Last Admin: 03/05/17 09:51 Dose: 200 mg Ascorbic Acid (Vitamin C) 1,000 mg PO BID [facility] Last Admin: 03/05/17 09:51 Dose: 1,000 mg Atorvastatin Calcium (Lipitor) 40 mg PO DAILY [facility] Last Admin: 03/05/17 09:51 Dose: 40 mg Bumetanide (Bumex) 2 mg PO BIDDIUR [facility] Last Admin: 03/05/17 15:58 Dose: 2 mg Clotrimazole (Lotrisone) 0.5 gm TOP BID PRN PRN Reason: DRY SKIN Insulin Detemir (Levemir Flextouch) 6 unit SQ QHS [facility] Last Admin: 03/04/17 22:35 Dose: 6 unit Levothyroxine Sodium (Synthroid) 150 mcg PO DAILYTHY [facility] Last Admin: 03/05/17 06:36 Dose: 150 mcg Magnesium Hydroxide (Milk Of Magnesium) 30 ml PO DAILY PRN PRN Reason: INDIGESTION Last Admin: 03/04/17 13:06 Dose: 30 ml Magnesium Oxide (Mag Ox) 400 mg PO DAILY [facility] Last Admin: 03/05/17 09:51 Dose: 400 mg Metoprolol Tartrate (Lopressor) 50 mg PO BID [facility] Last Admin: 03/05/17 09:51 Dose: 50 mg Multivitamins/Minerals (Centrum) 1 tab PO DAILY [facility] Last Admin: 03/05/17 09:51 Dose: 1 tab Oxycodone/Acetaminophen (Percocet 10-325 Mg Tablet) 1 each PO Q4H PRN PRN Reason: Pain - General Oxycodone/Acetaminophen (Percocet 10-325 Mg Tablet) 2 each PO Q4H PRN PRN Reason: Pain - General Last Admin: 03/05/17 14:33 Dose: 2 each Patient Own Med: (Diclofenac Cream 1 %) 1 each TOP DAILY PRN PRN Reason: Pain - General Polyethylene Glycol (Miralax) 17 gm PO QHS [facility] Last Admin: 03/04/17 22:33 Dose: 17 gm Potassium Chloride (Klor-Con) 20 meq PO BID [facility] Last Admin: 03/05/17 09:51 Dose: 20 meq Ranitidine HCl (Zantac) 150 mg PO QHS [facility] Last Admin: 03/04/17 22:32 Dose: 150 mg Senna/Docusate Sodium (Senna Plus) 1 each PO QHS [facility] Last Admin: 03/04/17 22:32 Dose: 1 each Tamsulosin HCl (Flomax) 0.4 mg PO DAILY [facility] Last Admin: 03/05/17 09:51 Dose: 0.4 mg Vitamin D (Vitamin D3) 5,000 unit PO DAILY [facility] Last Admin: 03/05/17 09:50 Dose: 5,000 unit Warfarin Sodium (Coumadin) 2 mg PO 1999 [facility] Objective - Vital Signs Vital Signs: Vital Signs - Last 24 Hrs Temp Pulse Pulse Resp BP Pulse Ox 03/05/17 14:03 76 16 97 03/05/17 10:42 86 16 97 03/05/17 10:00 97.1 F L 72 18 100/56 97 03/05/17 06:15 70 20 03/04/17 20:20 72 20 - General General Appearance: Alert, Oriented x3, Cooperative, No acute distress - Head Head exam: Atraumatic - Eye Eye exam: Normal appearance, EOMI - ENT ENT exam: Normal exam - Neck Neck exam: Normal inspection, Full ROM - Respiratory Respiratory exam: Normal lung sounds bilaterally - Cardiovascular Cardiovascular Exam: Regular rate, Normal rhythm, Systolic murmur Peripheral Pulses: 1+: Dorsalis Pedis (R), Dorsalis Pedis (L) - GI/Abdominal GI/Abdominal exam: Soft, Normal bowel sounds. negative: Tenderness - exam: Deferred - Extremities Extremities exam: Normal capillary refill. negative: Calf tenderness, Joint swelling, Pedal edema - Neurological Neurological exam: Alert, CN II-XII intact, Oriented X3 - Psychiatric Psychiatric exam: Normal affect, Normal mood - Skin Skin exam: Other (Has chronic vascular wound lateral LLE, approx 3cm x 2cm, irregular borders, + hyperbole, wound bed dry. No evidence of infection. Daughter has been managing this wound for the past 16 months.) H&P Results - Labs Result Diagrams: 03/04/17 06:11 03/04/17 06:05 Labs Last 24 Hours: Laboratory Results - last 24 hr 03/04/17 03/04/17 03/05/17 17:00 21:49 06:11 PT 19.4 H INR 1.72 POC Glucose 104 106 Discharge Potential - Discharge Needs Community Services Used Prior to Admission: None Patient Discharge Plan Description: Return Home Community Services Needed at Discharge: Occupational Therapy, Physical Therapy Discharge Needs Comment: Pts goal is to DC to home early next week. Pt has out pt follow up appointments scheduled with [facility] and Dr. Russ. Plan - Swing Bed Certification Initial Certification Due: 02/25/17 14 Day Re-Cert Due: 03/11/17 44 Day Re-Cert Due: 04/10/17 74 Day Re-Cert Due: 05/10/17 - Detailed Diagnosis and Plan (1) Generalized weakness Current Visit: Yes Status: Acute Base Code: R53.1 - WEAKNESS Comment: 03/05/17- Improving with PT/OT and nutrition consult. Patient deconditioned 2/2 prolonged hospitalization for HCAP and CHF exacerbation - PT/OT m-F to regain strength and physical functioning. -plan to transition to home next week if he continues to improve. (2) CHF (congestive heart failure) Current Visit: Yes Status: Acute Qualifiers: Congestive heart failure type: unspecified congestive heart failure type Congestive heart failure chronicity: unspecified congestive heart failure chronicity Qualified Code(s): I50.9 - Heart failure, unspecified Base Code: I50.9 - HEART FAILURE, UNSPECIFIED Comment: 03/05/17 - stable. Patient's weight has had some increase but no clinical signs of fluid overload like he had with hospitalization. no shortness of breath, lungs CTA on exam, and no pedal edema or increase in circumference. - Continue Bumex 2mg BID per cardiology recommendations from [facility] - will be monitoring renal function closely. BUN/Cr stable (42/1.7) - weight daily - patient has outpatient f/u with Dr. Griggs scheduled on 03/20/17. If weight continues to increase and certainly if patinet has clinical symptoms of an exacerbation will get him outpatient follow up with Dr. Connors on Friday (3) Cellulitis Current Visit: Yes Status: Acute Base Code: L03.90 - CELLULITIS, UNSPECIFIED Comment: 03/05/17- cellulitis 2nd excessive BLE edema upon admittsion to [facility]. WBC normal, afebrile - continue Doxycline for total 10 day regimen - wound care to open area LLE- chronic vascular wound, daughter doing wound care (4) DVT prophylaxis Current Visit: Yes Status: Acute Base Code: [id number] - Comment: 03/05/17- moderate risk due to age and prolonged hospitalization. -Will continue Coumadin 2mg QD with serial INRs and dose adjustments accordingly to keep INR therapeutic (5) Full code status Current Visit: Yes Status: Acute Base Code: Z78.9 - OTHER SPECIFIED HEALTH STATUS Comment: 03/05/17 will remain full code during Swing Bed admission
[2017-03-05] MEDS: WARFARIN 1 MG TABLET PO SCH (20:30)
[2017-03-05] MEDS: RANITIDINE HCL 150 MG TABLET PO SCH (22:14)
[2017-03-05] MEDS: POLYETHYLENE GLY 17 GM PACKET PO SCH (22:16)
[2017-03-05] MEDS: SENNOSIDES/DOCUSATE SODIUM UD CAPSULE PO SCH (22:16)
[2017-03-05] MEDS: LEVEMIR FLEXTOUCH 100 UNIT/ML INSULIN PEN SQ SCH (22:25)
[2017-03-06] MEDS: IPRATROPIUM/ALBUTEROL (0.5MG/3MG) NEB INH SCH ×5 (06:15→22:13)
[2017-03-06] MEDS: LEVOTHYROXINE SODIUM 150 MCG TABLET PO SCH (07:00)
[2017-03-06] MEDS: METOPROLOL TART 50 MG TABLET PO SCH ×2 (09:00→22:20)
[2017-03-06] MEDS: CHOLECALCIFEROL 1,000 UNIT TABLET PO SCH (09:00)
[2017-03-06] MEDS: POTASSIUM CHLORIDE 20 MEQ TABLET PO SCH ×2 (09:00→22:17)
[2017-03-06] MEDS: MAGNESIUM OXIDE 400 MG TABLET PO SCH (09:00)
[2017-03-06] MEDS: BUMETANIDE 1 MG TABLET PO SCH ×2 (09:00→16:04)
[2017-03-06] MEDS: AMIODARONE HCL 200 MG TABLET PO SCH (09:00)
[2017-03-06] MEDS: ASCORBIC ACID 500 MG TAB PO SCH ×2 (09:00→22:20)
[2017-03-06] MEDS: ATORVASTATIN 20 MG TABLET PO SCH (09:00)
[2017-03-06] MEDS: TAMSULOSIN HCL 0.4 MG CAP.ER.24H PO SCH (09:00)
[2017-03-06] MEDS: MULTIVITAMINS/MINERALS TABLET PO SCH (09:00)
[2017-03-06] MEDS: OXYCODONE/APAP 10MG-325MG TABLET PO PRN (10:40)
--- NOTE | 2017-03-06 10:44 | Physical Therapy Tx Note ---
Physical Therapy Tx Note - Treatment Note Tolerated: Good Total Time Spent With Patient: 35 Physical Therapy Tx Note: Detail (Patient states right hip stiff this morning. Patient states didn't sleep well last night. Patient transferred sit to and from stand independently. Patient ambulated 112 feet with two single point canes SBA x1. Patient transferred sit to and from stand x2 independently. Patient ambulated 50 feet with two single point canes SBA x1. Patient performed the following exercises: standing heel raises x10, standing toe raises x8, and standing hamstring curls x6. Patient ambulated 15 feet with single point cane SBA x1. Patient performed the following exercises x10 reps each: LAQ, seated hip abduction with blue theraband, isometric hip adduction, and seated marching. Patient transferred sit to and from stand independently. Patient ambulated 95 feet with two single point canes SBA x1. Patient transferred sit to and from stand independently. Patient tolerated treatment well. Patient displays decreased strength and endurance with exercises. Patient reports fatigued after treatment. Patient was left seated in chair with call light within reach and nursing home administrator in room.) Physical Therapy Problem List: Detail (1) Decreased R LE strength 2) Impaired balance 3) Decreased ability to complete sustained physical activity) Physical Therapy Goals: 1)Assess bed mobility. 2) The patient will ambulate with assistive device distances of 300 feet indpendently on levels and steps. 3 ) The patient's R LE strength will improve 1/3 muscle grade. 4) Improve the patient's balance 3 to 4 points on Tinetti Balance Scale. Prognosis: Good Physical Therapy Plan: PT M-F 1 to 2 times a day for LE strengthening and balance exercises, transfer and gait training.
--- NOTE | 2017-03-06 15:21 | Physical Therapy Tx Note ---
Physical Therapy Tx Note - Treatment Note Tolerated: Good Total Time Spent With Patient: 40 Physical Therapy Tx Note: Detail (Pt sitting up in recliner upon arrival. Reports pain of 6/10 in R groin, after pain medication with lunch. Performed soft tissue mobilization to R iliopsoas, TFL, IT band, quadriceps, adductors, pectineus with patient in recliner w/LEs elevated and trunk reclined. Performed hip circles passively, PROM into flexion, abduction, adduction as tolerated. Gentle long axis distraction. Pt reported significant pain relief w /tmt. Ambulated 175 feet w/B canes w/slight increase in pain, but not as high as start of therapy. Left up in recliner w/call light in reach.) Physical Therapy Problem List: Detail (1) Decreased R LE strength 2) Impaired balance 3) Decreased ability to complete sustained physical activity) Physical Therapy Goals: 1)Assess bed mobility. 2) The patient will ambulate with assistive device distances of 300 feet indpendently on levels and steps. 3 ) The patient's R LE strength will improve 1/3 muscle grade. 4) Improve the patient's balance 3 to 4 points on Tinetti Balance Scale. Prognosis: Good Physical Therapy Plan: PT M-F 1 to 2 times a day for LE strengthening and balance exercises, transfer and gait training.
[2017-03-06] MEDS: WARFARIN 1 MG TABLET PO SCH (22:15)
[2017-03-06] MEDS: LEVEMIR FLEXTOUCH 100 UNIT/ML INSULIN PEN SQ SCH (22:18)
[2017-03-06] MEDS: POLYETHYLENE GLY 17 GM PACKET PO SCH (22:20)
[2017-03-06] MEDS: RANITIDINE HCL 150 MG TABLET PO SCH (22:21)
[2017-03-06] MEDS: SENNOSIDES/DOCUSATE SODIUM UD CAPSULE PO SCH (22:32)
[2017-03-07] MEDS: LEVOTHYROXINE SODIUM 150 MCG TABLET PO SCH (06:26)
[2017-03-07] MEDS: IPRATROPIUM/ALBUTEROL (0.5MG/3MG) NEB INH SCH ×5 (06:59→22:58)
[2017-03-07 07:04] LABS: INR 1.59
--- NOTE | 2017-03-07 10:07 | Physical Therapy Tx Note ---
Physical Therapy Tx Note - Treatment Note Tolerated: Good Total Time Spent With Patient: 35 Physical Therapy Tx Note: Detail (Patient states 5/10 pain in right hip. Patient transferred sit to and from stand independently. Patient ambulated 171 feet with two single point canes SBA x1. Patient transferred sit to and from stand independently. Patient performed Nustep L3-L4 x15 minutes. Patient ambulated 50 feet with single point cane SBA x1. Patient transferred sit to and from stand independently. Patient performed the following exercises x10 reps each: seated marching, LAQ, seated hamstring curls with green theraband, and isometric hip adduction. Patient transferred sit to and from stand independently. Patient ambulated 75 feet with single point cane SBA x1. Patient transferred sit to and from stand independently. Patient tolerated treatment well. Patient displays decreased strength and endurance with seated marching, and LAQ. Patient reports fatigued after treatment. Patient was left seated in chair with call light within reach.) Physical Therapy Problem List: Detail (1) Decreased R LE strength 2) Impaired balance 3) Decreased ability to complete sustained physical activity) Physical Therapy Goals: 1)Assess bed mobility. 2) The patient will ambulate with assistive device distances of 300 feet indpendently on levels and steps. 3 ) The patient's R LE strength will improve 1/3 muscle grade. 4) Improve the patient's balance 3 to 4 points on Tinetti Balance Scale. Prognosis: Good Physical Therapy Plan: PT M-F 1 to 2 times a day for LE strengthening and balance exercises, transfer and gait training.
[2017-03-07] MEDS: ASCORBIC ACID 500 MG TAB PO SCH ×2 (10:41→22:06)
[2017-03-07] MEDS: METOPROLOL TART 50 MG TABLET PO SCH ×2 (10:41→22:05)
[2017-03-07] MEDS: TAMSULOSIN HCL 0.4 MG CAP.ER.24H PO SCH (10:41)
[2017-03-07] MEDS: CHOLECALCIFEROL 1,000 UNIT TABLET PO SCH (10:41)
[2017-03-07] MEDS: POTASSIUM CHLORIDE 20 MEQ TABLET PO SCH ×2 (10:41→22:03)
[2017-03-07] MEDS: ATORVASTATIN 20 MG TABLET PO SCH (10:41)
[2017-03-07] MEDS: MAGNESIUM OXIDE 400 MG TABLET PO SCH (10:41)
[2017-03-07] MEDS: BUMETANIDE 1 MG TABLET PO SCH ×2 (10:41→16:27)
[2017-03-07] MEDS: AMIODARONE HCL 200 MG TABLET PO SCH (10:41)
[2017-03-07] MEDS: MULTIVITAMINS/MINERALS TABLET PO SCH (10:41)
--- NOTE | 2017-03-07 13:38 | Physical Therapy Tx Note ---
Physical Therapy Tx Note - Treatment Note Tolerated: Good Total Time Spent With Patient: 25 Physical Therapy Tx Note: Detail (The patient was up in chair when PT arrived. Discussed with patient concerns re: fluid gain and possible effect of exercise on CHF. The importance of not pushing exercises to over-exertion was emphasized. The patient complete UE exercises including: green T-band scapular retraction, rowing, biceps and tricep curls all x 20 reps. The patient ambulated with 2 canes 140 feet x 1 with minimal shortness of breath. The patient was discouraged re: weight gain.) Physical Therapy Problem List: Detail (1) Decreased R LE strength 2) Impaired balance 3) Decreased ability to complete sustained physical activity) Physical Therapy Goals: 1)Assess bed mobility. 2) The patient will ambulate with assistive device distances of 300 feet indpendently on levels and steps. 3 ) The patient's R LE strength will improve 1/3 muscle grade. 4) Improve the patient's balance 3 to 4 points on Tinetti Balance Scale. Physical Therapy Plan: PT M-F 1 to 2 times a day for LE strengthening and balance exercises, transfer and gait training.
[2017-03-07] MEDS: OXYCODONE/APAP 10MG-325MG TABLET PO PRN (20:34)
[2017-03-07] MEDS: WARFARIN 1 MG TABLET PO SCH (20:36)
[2017-03-07] MEDS: POLYETHYLENE GLY 17 GM PACKET PO SCH (22:00)
[2017-03-07] MEDS: LEVEMIR FLEXTOUCH 100 UNIT/ML INSULIN PEN SQ SCH (22:04)
[2017-03-07] MEDS: SENNOSIDES/DOCUSATE SODIUM UD CAPSULE PO SCH (22:06)
[2017-03-07] MEDS: RANITIDINE HCL 150 MG TABLET PO SCH (22:06)
[2017-03-08] MEDS: IPRATROPIUM/ALBUTEROL (0.5MG/3MG) NEB INH SCH ×5 (06:02→22:24)
[2017-03-08] MEDS: LEVOTHYROXINE SODIUM 150 MCG TABLET PO SCH (06:47)
[2017-03-08] MEDS: BUMETANIDE 1 MG TABLET PO SCH ×3 (08:25→17:08)
[2017-03-08] MEDS: TAMSULOSIN HCL 0.4 MG CAP.ER.24H PO SCH ×2 (08:26→09:46)
[2017-03-08] MEDS: MULTIVITAMINS/MINERALS TABLET PO SCH ×2 (08:26→09:46)
[2017-03-08] MEDS: ATORVASTATIN 20 MG TABLET PO SCH ×2 (08:27→09:46)
[2017-03-08] MEDS: POTASSIUM CHLORIDE 20 MEQ TABLET PO SCH ×5 (08:27→22:00)
[2017-03-08] MEDS: ASCORBIC ACID 500 MG TAB PO SCH ×4 (08:28→22:01)
[2017-03-08] MEDS: MAGNESIUM OXIDE 400 MG TABLET PO SCH ×2 (08:28→09:47)
[2017-03-08] MEDS: METOPROLOL TART 50 MG TABLET PO SCH ×4 (08:28→22:00)
[2017-03-08] MEDS: AMIODARONE HCL 200 MG TABLET PO SCH ×2 (08:28→09:47)
[2017-03-08] MEDS: CHOLECALCIFEROL 1,000 UNIT TABLET PO SCH ×2 (08:29→09:47)
[2017-03-08] MEDS ORDERED: ACETAMINOPHEN 325 MG TAB PO PRN (17:31)
[2017-03-08] MEDS: WARFARIN 1 MG TABLET PO SCH (20:54)
[2017-03-08] MEDS: SENNOSIDES/DOCUSATE SODIUM UD CAPSULE PO SCH ×2 (20:55→22:01)
[2017-03-08] MEDS: RANITIDINE HCL 150 MG TABLET PO SCH (21:00)
[2017-03-08] MEDS: POLYETHYLENE GLY 17 GM PACKET PO SCH (21:02)
[2017-03-08] MEDS: LEVEMIR FLEXTOUCH 100 UNIT/ML INSULIN PEN SQ SCH (22:03)
[2017-03-09] MEDS: IPRATROPIUM/ALBUTEROL (0.5MG/3MG) NEB INH SCH ×5 (07:38→22:35)
[2017-03-09] MEDS: LEVOTHYROXINE SODIUM 150 MCG TABLET PO SCH (08:02)
[2017-03-09 08:28] LABS: INR 1.54; PROTHROMBIN TIME (PATIENT) 17.4 SECONDS (9.5-12.1)
[2017-03-09] MEDS: METOPROLOL TART 50 MG TABLET PO SCH ×2 (09:14→21:25)
[2017-03-09] MEDS: BUMETANIDE 1 MG TABLET PO SCH ×2 (09:14→16:55)
[2017-03-09] MEDS: ASCORBIC ACID 500 MG TAB PO SCH ×2 (09:15→21:27)
[2017-03-09] MEDS: AMIODARONE HCL 200 MG TABLET PO SCH (09:15)
[2017-03-09] MEDS: MAGNESIUM OXIDE 400 MG TABLET PO SCH (09:15)
[2017-03-09] MEDS: CHOLECALCIFEROL 1,000 UNIT TABLET PO SCH (09:15)
[2017-03-09] MEDS: ATORVASTATIN 20 MG TABLET PO SCH (09:15)
[2017-03-09] MEDS: POTASSIUM CHLORIDE 20 MEQ TABLET PO SCH ×2 (09:15→21:34)
[2017-03-09] MEDS: MULTIVITAMINS/MINERALS TABLET PO SCH (09:16)
[2017-03-09] MEDS: TAMSULOSIN HCL 0.4 MG CAP.ER.24H PO SCH (09:16)
[2017-03-09] MEDS: WARFARIN 1 MG TABLET PO SCH (20:15)
[2017-03-09] MEDS: SENNOSIDES/DOCUSATE SODIUM UD CAPSULE PO SCH (21:26)
[2017-03-09] MEDS: POLYETHYLENE GLY 17 GM PACKET PO SCH (21:26)
[2017-03-09] MEDS: RANITIDINE HCL 150 MG TABLET PO SCH (21:28)
[2017-03-09] MEDS: LEVEMIR FLEXTOUCH 100 UNIT/ML INSULIN PEN SQ SCH (21:29)
[2017-03-10] MEDS: IPRATROPIUM/ALBUTEROL (0.5MG/3MG) NEB INH SCH ×5 (06:26→22:07)
[2017-03-10 06:34] LABS: BASO % 0.7 % (0-6); EOS % 5.7 % (0-6); GRAN % 53.8 % (47-80); HEMATOCRIT 35.2 % (42.0-52.0); LYMPH % 28.6 % (16-45); MEAN CELL VOLUME 88.7 fl (81-97); MEAN CORPUSCULAR HEMOGLOBIN 27.7 pg (27-33); MEAN CORPUSCULAR HGB CONC 31.3 g/dl (32-36); MEAN PLATELET VOLUME 11.2 fl (7.4-10.4); MONO % 11.2 % (0-9); PLATELET COUNT 181 K/uL (130-400); RED BLOOD COUNT 3.97 M/uL (4.40-5.70); RED CELL DISTRIBUTION WIDTH 14.8 % (11.5-14.5); WHITE BLOOD COUNT W/O DIFF 4.6 K/uL (4.2-12.2)
[2017-03-10 06:52] LABS: ALB/GLOB RATIO 1.3 (1.1-1.8); ALBUMIN 3.5 gm/dL (3.5-5.0); ALKALINE PHOSPHATASE 85 U/L (38-126); ALT/SGPT 40 U/L (21-72); ANION GAP 7.2 (7-16); AST/SGOT 37 U/L (17-59); BILIRUBIN,TOTAL 0.55 mg/dL (0.2-1.3); BLOOD UREA NITROGEN 21 mg/dL (9-20); CARBON DIOXIDE 34.8 mmol/L (22-30); CREATININE 1.2 mg/dL (0.66-1.25); EST GLOMERULAR FILTRATION RATE > 60 ml/min; GLUCOSE,RANDOM 105 mg/dL (70-110); TOTAL PROTEIN 6.2 gm/dL (6.3-8.2)
[2017-03-10] MEDS: LEVOTHYROXINE SODIUM 150 MCG TABLET PO SCH (06:58)
[2017-03-10] MEDS: POTASSIUM CHLORIDE 20 MEQ TABLET PO SCH ×2 (09:17→22:31)
[2017-03-10] MEDS: BUMETANIDE 1 MG TABLET PO SCH ×2 (09:17→19:57)
[2017-03-10] MEDS: ATORVASTATIN 20 MG TABLET PO SCH (09:17)
[2017-03-10] MEDS: METOPROLOL TART 50 MG TABLET PO SCH ×2 (09:18→22:32)
[2017-03-10] MEDS: ASCORBIC ACID 500 MG TAB PO SCH ×2 (09:18→22:34)
[2017-03-10] MEDS: MULTIVITAMINS/MINERALS TABLET PO SCH (09:19)
[2017-03-10] MEDS: TAMSULOSIN HCL 0.4 MG CAP.ER.24H PO SCH (09:19)
[2017-03-10] MEDS: MAGNESIUM OXIDE 400 MG TABLET PO SCH (09:19)
[2017-03-10] MEDS: AMIODARONE HCL 200 MG TABLET PO SCH (09:20)
[2017-03-10] MEDS: CHOLECALCIFEROL 1,000 UNIT TABLET PO SCH (09:20)
[2017-03-10] MEDS: OXYCODONE/APAP 10MG-325MG TABLET PO PRN (10:10)
--- NOTE | 2017-03-10 10:45 | Physical Therapy Tx Note ---
Physical Therapy Tx Note - Treatment Note Tolerated: Good Total Time Spent With Patient: 40 Physical Therapy Tx Note: Detail (The patient ambulated with 2 canes a distance of 200 feet x 2 with supervision for safety. The patient periodically ambulated with one cane. When ambulating with one cane the patient's gait pattern was charecterized by decreased weight bearing R and increased toeing out on the R. The patient completed the following LE exercises: Nu step: x 15 min , hip marching , hip adductor squeezes, blue T-band hip abdcutor squeezes, LAQ and hamstring curls all until fatigued. The patient complained of R groin pain with weight bearing at times.) Physical Therapy Problem List: Detail (1) Decreased R LE strength 2) Impaired balance 3) Decreased ability to complete sustained physical activity) Physical Therapy Goals: 1)Assess bed mobility. 2) The patient will ambulate with assistive device distances of 300 feet indpendently on levels and steps. 3 ) The patient's R LE strength will improve 1/3 muscle grade. 4) Improve the patient's balance 3 to 4 points on Tinetti Balance Scale. Physical Therapy Plan: PT M-F 1 to 2 times a day for LE strengthening and balance exercises, transfer and gait training.
--- NOTE | 2017-03-10 16:16 | Physical Therapy Tx Note ---
Physical Therapy Tx Note - Treatment Note Tolerated: Good Total Time Spent With Patient: 20 Physical Therapy Tx Note: Detail (Patient states tired this afternoon, right hip sore. Patient performed the following exercises 10-15 reps each: seated marching, LAQ, hamstring curls with blue theraband, seated hip abduction with blue theraband, isometric hip adduction, seated heel raises, and seated toe raises. Patient reports improved hip flexion with seated marching. Patient reports fatigued after treatment. Patient was left seated in chair with call light within reach.) Physical Therapy Problem List: Detail (1) Decreased R LE strength 2) Impaired balance 3) Decreased ability to complete sustained physical activity) Physical Therapy Goals: 1)Assess bed mobility. 2) The patient will ambulate with assistive device distances of 300 feet indpendently on levels and steps. 3 ) The patient's R LE strength will improve 1/3 muscle grade. 4) Improve the patient's balance 3 to 4 points on Tinetti Balance Scale. Prognosis: Good Physical Therapy Plan: PT M-F 1 to 2 times a day for LE strengthening and balance exercises, transfer and gait training.
[2017-03-10] MEDS: WARFARIN 1 MG TABLET PO SCH (22:29)
[2017-03-10] MEDS: SENNOSIDES/DOCUSATE SODIUM UD CAPSULE PO SCH (22:33)
[2017-03-10] MEDS: RANITIDINE HCL 150 MG TABLET PO SCH (22:35)
[2017-03-10] MEDS: LEVEMIR FLEXTOUCH 100 UNIT/ML INSULIN PEN SQ SCH (22:39)
[2017-03-10] MEDS: POLYETHYLENE GLY 17 GM PACKET PO SCH (22:39)
[2017-03-11] MEDS: LEVOTHYROXINE SODIUM 150 MCG TABLET PO SCH (06:41)
[2017-03-11] MEDS: IPRATROPIUM/ALBUTEROL (0.5MG/3MG) NEB INH SCH ×5 (07:21→22:02)
[2017-03-11 09:37] LABS: INR 1.51; PROTHROMBIN TIME (PATIENT) 17.1 SECONDS (9.5-12.1)
[2017-03-11] MEDS: OXYCODONE/APAP 10MG-325MG TABLET PO PRN (10:20)
[2017-03-11] MEDS: BUMETANIDE 1 MG TABLET PO SCH ×2 (10:20→15:11)
[2017-03-11] MEDS: AMIODARONE HCL 200 MG TABLET PO SCH (10:20)
[2017-03-11] MEDS: POTASSIUM CHLORIDE 20 MEQ TABLET PO SCH ×2 (10:21→21:03)
[2017-03-11] MEDS: CHOLECALCIFEROL 1,000 UNIT TABLET PO SCH (10:21)
[2017-03-11] MEDS: MULTIVITAMINS/MINERALS TABLET PO SCH (10:22)
[2017-03-11] MEDS: ATORVASTATIN 20 MG TABLET PO SCH (10:22)
[2017-03-11] MEDS: TAMSULOSIN HCL 0.4 MG CAP.ER.24H PO SCH (10:22)
[2017-03-11] MEDS: ASCORBIC ACID 500 MG TAB PO SCH ×2 (10:22→21:06)
[2017-03-11] MEDS: MAGNESIUM OXIDE 400 MG TABLET PO SCH (10:22)
--- NOTE | 2017-03-11 10:24 | Physical Therapy Tx Note ---
Physical Therapy Tx Note - Treatment Note Tolerated: Good Total Time Spent With Patient: 35 Physical Therapy Tx Note: Detail (The patient was up in chair when PT arrived. The patient ambulated with 2 canes 75 feet x1 with increased stride length and improved gait pattern. The patient completed the following exercises in the [facility]: Nu Step 16 minutes ( 3 laps), LE exercises: black band hip abduction seated , LAQ, Hamstring curls all x 20 reps, without band hip flexion x5 reps, internal and external rotation. The patient had increased L groin pain and LE fatigue following exercises. Will complete iliospoas release this pm.) Physical Therapy Problem List: Detail (1) Decreased R LE strength 2) Impaired balance 3) Decreased ability to complete sustained physical activity) Physical Therapy Goals: 1)Assess bed mobility. 2) The patient will ambulate with assistive device distances of 300 feet indpendently on levels and steps. 3 ) The patient's R LE strength will improve 1/3 muscle grade. 4) Improve the patient's balance 3 to 4 points on Tinetti Balance Scale. Physical Therapy Plan: PT M-F 1 to 2 times a day for LE strengthening and balance exercises, transfer and gait training.
[2017-03-11] MEDS: METOPROLOL TART 50 MG TABLET PO SCH ×2 (11:01→21:04)
--- NOTE | 2017-03-11 14:15 | Physical Therapy Tx Note ---
Physical Therapy Tx Note - Treatment Note Tolerated: Good Total Time Spent With Patient: 25 Physical Therapy Tx Note: Detail (Pt was in chair and alert upon arrival. Pt was eager to go for a walk. Pt states had to take 2 pain meds after treatment this a.m. and then took a nap and feels a bit better but has not gotten up since returned this morning. Pt ambulated with two standard canes with standby assist x 300 ft. Pt. had difficulty keeping right foot from Externally rotating with gait. Treatment also of MTT of MFR to right IT band, Lateral quad, from hip to knee and scar mobs to same area, MFR to right groin area and hip flexor as well. Pt vishnu well with decreased pain after MTT. Pt completed all transfers independently, and was returned to chair after gait. Pt was left with call button, and phone on bedside table within reach. Pt states possible discharge tomorrow. Con't treatment for strength and endurance.) Physical Therapy Problem List: Detail (1) Decreased R LE strength 2) Impaired balance 3) Decreased ability to complete sustained physical activity) Physical Therapy Goals: 1)Assess bed mobility. 2) The patient will ambulate with assistive device distances of 300 feet indpendently on levels and steps. 3 ) The patient's R LE strength will improve 1/3 muscle grade. 4) Improve the patient's balance 3 to 4 points on Tinetti Balance Scale. Prognosis: Good Physical Therapy Plan: PT M-F 1 to 2 times a day for LE strengthening and balance exercises, transfer and gait training.
[2017-03-11] MEDS: WARFARIN 1 MG TABLET PO SCH (20:58)
[2017-03-11] MEDS: POLYETHYLENE GLY 17 GM PACKET PO SCH (21:04)
[2017-03-11] MEDS: SENNOSIDES/DOCUSATE SODIUM UD CAPSULE PO SCH (21:05)
[2017-03-11] MEDS: RANITIDINE HCL 150 MG TABLET PO SCH (21:08)
[2017-03-11] MEDS: LEVEMIR FLEXTOUCH 100 UNIT/ML INSULIN PEN SQ SCH (21:09)
[2017-03-12] MEDS: IPRATROPIUM/ALBUTEROL (0.5MG/3MG) NEB INH SCH ×3 (05:58→14:27)
[2017-03-12] MEDS: LEVOTHYROXINE SODIUM 150 MCG TABLET PO SCH (06:45)
[2017-03-12] MEDS: ASCORBIC ACID 500 MG TAB PO SCH (09:30)
[2017-03-12] MEDS: MULTIVITAMINS/MINERALS TABLET PO SCH (09:30)
[2017-03-12] MEDS: BUMETANIDE 1 MG TABLET PO SCH (09:30)
[2017-03-12] MEDS: ATORVASTATIN 20 MG TABLET PO SCH (09:31)
[2017-03-12] MEDS: CHOLECALCIFEROL 1,000 UNIT TABLET PO SCH (09:31)
[2017-03-12] MEDS: POTASSIUM CHLORIDE 20 MEQ TABLET PO SCH (09:31)
[2017-03-12] MEDS: MAGNESIUM OXIDE 400 MG TABLET PO SCH (09:31)
[2017-03-12] MEDS: AMIODARONE HCL 200 MG TABLET PO SCH (09:32)
--- NOTE | 2017-03-12 09:57 | Rehab Discharge Summary ---
Patient Information - Patient Information Diagnosis: deconditioning due to CHF and pneumonia Ordered Treatment: PT Evaluate and Treat Surgery: No History: Detail (The patient was transferred from [facility] for Rehab. The patient was hospitalized for pneumonia.) Past Medical/Surgical Hx: PAST MEDICAL/SURGICAL HISTORY Past Surgical History pump trial with dilaudid implanted cath ( permanent device in place) Back surgery X5, neck surgery, Hip & shoulder sx ,Bunionectomy,bilat right hip replacement, AICD , abscess rt thigh, septic hip, hematoma rt thigh , revision x2, evac of hematoma post rt hip; lumbar rhizotomy 05/31/15. permanent pain pump 2015 PMH - Respiratory Hx Respiratory Disorders Yes Hx Pneumonia Yes: 1989, current 2016 Hx of SOB Yes: occass PMH - Cardiovascular Hx Cardiovascular Disorders Yes Hx Abnormal EKG Yes Hx Congestive Heart Failure Yes Hx Deep Vein Thrombosis Yes: 20 years ago after being kicked by a cow, current rt ankle 01/2017 Hx Edema Yes: bilat legs recent hospitalization Hx Hypertension Yes Hx Irregular Heartbeat Yes: hx a fib had cardioversion 1990 & 01/2017 Hx Pacemaker/Defibrillator Yes: 2014 Comment: hospitalizations states cardiac arrest during past hospitalization 07/18 PMH - Neuro Hx Neurological Disorders No Hx Neuropathy Yes: rt hand Hx Seizures No: denies PMH - GI Hx Gastrointestinal Disorders Yes Hx Gastroesophageal Reflux denies reflux Hx Weight Loss/Weight Gain Yes: loss 20-30# PMH - Hx Genitourinary Disorders No Hx Bladder Problem Yes: retention Hx Prostate Problems No: pt states no but on flomax Hx Urinary Tract Infection Yes PMH - Endocrine Hx Endocrine Disorders Yes Hx Diabetes Yes Hx Thyroid Disease Yes Hx of NIDDM Yes Hx of IDDM Yes Comment: checks blood sugars bid (100-140)/ulcers on feet due to poor circulation PMH - Musculoskeletal Hx Musculoskeletal Disorders Yes Hx Arthritis Yes Hx Back Injury Yes Hx Musculoskeletal Disease Yes Comment: chronic pain; hx septic hip in past PMH - Psych Hx Psychiatric Problems No PMH - Hematology/Oncology Hx Hematology/Oncology Yes Disorders Hx Anemia Yes Hx Bruising Yes Hx Cancer Yes: skin Hx Clotting Problems Yes Hx Blood Transfusion Reaction No Comment: pt to bridge with Lovenox 4 days preop Premorbid Status: Detail (Prior to hospitalization the patient was ambulating with 2 canes outside and 1 cane in the home. The patient was independent with all ADL's and cooking. The patient's daughter assisted the patient with ct tech.) Social History: Detail (The patient lives alone in a one story home with 3 steps at the entrance and 1 handrail. The patient has 2 bathrooms one with a walk in shower stall and one with tub/shower combo with grab bar and one with elevated toilet, the other with a standard toilet. The patient has canes, and a wheeled walker.) Precautions: [place], Fall, Other (Past history of MRSA) Subjective Information - Subjective Information Per Patient (The patient continues to have complaints of R groin region pain, with varying intensity. The pain increases with activity.) Objective Data - Mental Status Patient Orientation: Oriented x3 - Visual Perception Appears within normal limits for therapeutic activities - ROM Not within normal limits (R hip ROM is limited, same as initial evaluation due to THR history.) - Strength/Tone Not within normal limits (The patient's R LE hip strength is unchanged from initial: hip flexors 3-/5, abductors, adductors seated 3/5, rotators 2+/5, Quads and hamstrings 4/5, ankles 4+/5.) - Bed Mobility Independent (Independent with all bed mobility including supine to and from sit and scooting up in bed.) - Transfers Independent (Independent with sit to and from stand transfer and toilet transfer.) - Balance Balance Sitting: Good Balance Standing: Good - Gait Detail (The patient is independent with ambulation with wheeled walker, community distances 300 feet and also with 2 canes. The patient has begun ambulating with one cane however patient's groin pain increases with this activity. The patient also has increased gait deviations when ambulating with one cane including : decreased weight bearing on the R, increased toeing out and hip drop. The patient ambulated independently on stairs with use of cane and one railing.) Therapy Assessment - Therapy Assessment Detail (The patient has improved ability to complete sustained physical activity and independence with all mobility. The patient continues to have decreased R LE strength to be adressed to outpatient PT.) Patient Education - Patient Education Teaching Topic: Exercise/Activity (Instruction in LE strengthening exercises.) Response: Return Demonstration Teaching Method: Discussion Teaching Recipient: Patient Barriers To Learning: None Problem List - Problem List Physical Therapy Problem List: Detail (1) Decreased R LE strength 2) Impaired balance 3) Decreased ability to complete sustained physical activity) Occupational Therapy Problem List: Detail (1. Decreased endurance needed for safe and Ind ADLs/IADLs. 2. Decreased UE AROM and strength needed for IADLs.) Goals - Goals Physical Therapy Goals: GOALS MET: 1)Assess bed mobility. 2) The patient will ambulate with assistive device distances of 300 feet indpendently on levels and steps. 4) Improve the patient's balance 3 to 4 points on Tinetti Balance Scale. GOAL PARTIALLY MET: 3) The patient's R LE strength will improve 1/3 muscle grade Occupational Therapy Goals: 1. Pt will improve endurance needed for safe and Ind ADLs/IADLs 2. Pt will improve doroteo shoulder AROM by 20 degrees and improve strength to 4+/5 within AROM limitations to allow Ind with IADLs. Plan - Plan Physical Therapy Plan: Patient is to be discharged to home today. The patient is to continue with outpatient PT. Occupational Therapy Plan: OT 1-4 times per week to address endurance, ADLs/ IADLs, UE AROM and strengthening to allow safe and Ind return home.
[2017-03-12] MEDS: TAMSULOSIN HCL 0.4 MG CAP.ER.24H PO SCH (10:41)
--- NOTE | 2017-03-12 10:51 | Discharge Summary ---
Providers Discharge Summary Date: 03/12/17 Date of admission: 02/25/17 14:34 Expected Date of Discharge: 03/12/17 Attending physician: EVAN JUSTICE Primary care physician: EWELINA MALIN M.D. Consults: Consult Orders 03/04/17 14:17 Consult - Cardiology NOW Consulting Provider: AILEEN ARREDONDO Physician Instructions: schedule for outpatient specialty clinic Reason For Exam: CHF Does pt have current medical device?: TCI Comment: Patient having increased weight gain since d/c for chf exacerabation Physical Exam - Vital Signs Vital Signs: Vital Signs - Last 24 Hrs Temp Pulse Pulse Resp BP BP Pulse Ox 03/12/17 09:38 65 16 95 03/12/17 07:50 97.9 F 76 18 95/55 97 03/12/17 05:58 73 16 100 03/11/17 22:03 74 16 100 03/11/17 18:31 74 16 100 03/11/17 15:19 72 16 95 03/11/17 14:25 97.8 F 99/66 - General General Appearance: Alert, Oriented x3, Cooperative, No acute distress - Head Head exam: Atraumatic - Eye Eye exam: Normal appearance, EOMI - ENT ENT exam: Normal exam - Neck Neck exam: Normal inspection, Full ROM - Respiratory Respiratory exam: Normal lung sounds bilaterally - Cardiovascular Cardiovascular Exam: Regular rate, Normal rhythm, Systolic murmur Peripheral Pulses: 1+: Dorsalis Pedis (R), Dorsalis Pedis (L) - GI/Abdominal GI/Abdominal exam: Soft, Normal bowel sounds. negative: Tenderness - exam: Deferred - Extremities Extremities exam: Normal capillary refill. negative: Calf tenderness, Joint swelling, Pedal edema - Neurological Neurological exam: Alert, CN II-XII intact, Oriented X3 - Psychiatric Psychiatric exam: Normal affect, Normal mood - Skin Skin exam: Other (Has chronic vascular wound lateral LLE, approx 3cm x 2cm, irregular borders, + hyperbole, wound bed dry. No evidence of infection. Daughter has been managing this wound for the past 16 months.) Hospitalization - Hospitalization Admission Diagnosis: Deconditioning due to CHF and Pneumonia. htn, hcap, hypothyroidism, cellulitis, bilateral edema of lower extremity, T2DM - Problem List (1) CHF (congestive heart failure) Current Visit: Yes Status: Acute Discharge Diagnosis: Congestive heart failure type: unspecified congestive heart failure type Congestive heart failure chronicity: unspecified congestive heart failure chronicity Qualified Code(s): I50.9 - Heart failure, unspecified Base Code: I50.9 - HEART FAILURE, UNSPECIFIED Comment: 03/12/17 - stable. Patient's weight has had some increase but no clinical signs of fluid overload like he had with hospitalization. no shortness of breath, lungs CTA on exam, and no pedal edema or increase in circumference. - Continue Bumex 2mg BID per cardiology recommendations from [facility] - continue outpatient renal function - weight daily - patient has outpatient f/u with Dr. Griggs scheduled on 03/20/17. If weight continues to increase and certainly if patinet has clinical symptoms of an exacerbation will get him outpatient follow up sooner and patient aware (2) Generalized weakness Current Visit: Yes Status: Acute Base Code: R53.1 - WEAKNESS Comment: 03/12- Improving with PT/OT and nutrition consult. Patient deconditioned 2/2 prolonged hospitalization for HCAP and CHF exacerbation -plan to transition today since he continued to improve at rehab - Hospitalization Course Disposition: Home Health Service Abnormal Labs: Abnormal Lab Results 02/25/17 02/26/17 02/26/17 Range/Units 22:00 07:12 11:11 RBC (4.40-5.70) M/uL Hgb (14.0-18.0) gm/dl Hct (42.0-52.0) % MCH (27-33) pg MCHC (32-36) g/dl RDW (11.5-14.5) % MPV (7.4-10.4) fl Lymphocytes % (16-45) % Monocytes % (0-9) % Eosinophils % (0-6) % PT (9.5-12.1) SECONDS Chloride (98-107) mmol/L Carbon Dioxide (22-30) mmol/L BUN (9-20) mg/dL Creatinine (0.66-1.25) mg/dL POC Glucose 346 H 149 H 246 H (70-110) mg/dL Random Glucose (70-110) mg/dL Total Protein (6.3-8.2) gm/dL Albumin (3.5-5.0) gm/dL MRSA Culture (Not Detected) 02/26/17 02/26/17 02/26/17 Range/Units 12:00 17:03 21:20 RBC (4.40-5.70) M/uL Hgb (14.0-18.0) gm/dl Hct (42.0-52.0) % MCH (27-33) pg MCHC (32-36) g/dl RDW (11.5-14.5) % MPV (7.4-10.4) fl Lymphocytes % (16-45) % Monocytes % (0-9) % Eosinophils % (0-6) % PT (9.5-12.1) SECONDS Chloride (98-107) mmol/L Carbon Dioxide (22-30) mmol/L BUN (9-20) mg/dL Creatinine (0.66-1.25) mg/dL POC Glucose 305 H 364 H (70-110) mg/dL Random Glucose (70-110) mg/dL Total Protein (6.3-8.2) gm/dL Albumin (3.5-5.0) gm/dL MRSA Culture Detected H (Not Detected) 02/27/17 02/27/17 02/27/17 Range/Units 07:10 07:10 07:10 RBC (4.40-5.70) M/uL Hgb 12.2 L (14.0-18.0) gm/dl Hct 38.7 L (42.0-52.0) % MCH 26.9 L (27-33) pg MCHC 31.5 L (32-36) g/dl RDW (11.5-14.5) % MPV 10.6 H (7.4-10.4) fl Lymphocytes % 13.5 L (16-45) % Monocytes % 9.5 H (0-9) % Eosinophils % (0-6) % PT 44.5 H (9.5-12.1) SECONDS Chloride 96 L (98-107) mmol/L Carbon Dioxide 33.7 H (22-30) mmol/L BUN 42 H (9-20) mg/dL Creatinine 1.3 H (0.66-1.25) mg/dL POC Glucose (70-110) mg/dL Random Glucose 159 H (70-110) mg/dL Total Protein (6.3-8.2) gm/dL Albumin (3.5-5.0) gm/dL MRSA Culture (Not Detected) 02/27/17 02/28/17 02/28/17 Range/Units 22:00 06:05 06:05 RBC (4.40-5.70) M/uL Hgb 12.4 L (14.0-18.0) gm/dl Hct 39.9 L (42.0-52.0) % MCH 26.7 L (27-33) pg MCHC 31.1 L (32-36) g/dl RDW 14.7 H (11.5-14.5) % MPV 11.0 H (7.4-10.4) fl Lymphocytes % 15.4 L (16-45) % Monocytes % (0-9) % Eosinophils % (0-6) % PT (9.5-12.1) SECONDS Chloride 96 L (98-107) mmol/L Carbon Dioxide 35.9 H (22-30) mmol/L BUN 42 H (9-20) mg/dL Creatinine 1.3 H (0.66-1.25) mg/dL POC Glucose 259 H (70-110) mg/dL Random Glucose 128 H (70-110) mg/dL Total Protein (6.3-8.2) gm/dL Albumin (3.5-5.0) gm/dL MRSA Culture (Not Detected) 02/28/17 02/28/17 03/01/17 Range/Units 17:11 21:45 08:52 RBC (4.40-5.70) M/uL Hgb (14.0-18.0) gm/dl Hct (42.0-52.0) % MCH (27-33) pg MCHC (32-36) g/dl RDW (11.5-14.5) % MPV (7.4-10.4) fl Lymphocytes % (16-45) % Monocytes % (0-9) % Eosinophils % (0-6) % PT 32.8 H (9.5-12.1) SECONDS Chloride (98-107) mmol/L Carbon Dioxide (22-30) mmol/L BUN (9-20) mg/dL Creatinine (0.66-1.25) mg/dL POC Glucose 166 H 157 H (70-110) mg/dL Random Glucose (70-110) mg/dL Total Protein (6.3-8.2) gm/dL Albumin (3.5-5.0) gm/dL MRSA Culture (Not Detected) 03/01/17 03/01/17 03/01/17 Range/Units 08:52 08:52 17:41 RBC (4.40-5.70) M/uL Hgb 12.6 L (14.0-18.0) gm/dl Hct 40.9 L (42.0-52.0) % MCH (27-33) pg MCHC 30.8 L (32-36) g/dl RDW 14.9 H (11.5-14.5) % MPV 11.1 H (7.4-10.4) fl Lymphocytes % (16-45) % Monocytes % (0-9) % Eosinophils % (0-6) % PT (9.5-12.1) SECONDS Chloride 96 L (98-107) mmol/L Carbon Dioxide 37.9 H (22-30) mmol/L BUN 40 H (9-20) mg/dL Creatinine (0.66-1.25) mg/dL POC Glucose 147 H (70-110) mg/dL Random Glucose (70-110) mg/dL Total Protein (6.3-8.2) gm/dL Albumin (3.5-5.0) gm/dL MRSA Culture (Not Detected) 03/01/17 03/02/17 03/02/17 Range/Units 21:40 07:45 09:14 RBC (4.40-5.70) M/uL Hgb 12.4 L (14.0-18.0) gm/dl Hct 40.0 L (42.0-52.0) % MCH (27-33) pg MCHC 31.0 L (32-36) g/dl RDW 14.7 H (11.5-14.5) % MPV 11.0 H (7.4-10.4) fl Lymphocytes % 11.9 L (16-45) % Monocytes % 9.1 H (0-9) % Eosinophils % (0-6) % PT (9.5-12.1) SECONDS Chloride 95 L (98-107) mmol/L Carbon Dioxide 32.4 H (22-30) mmol/L BUN 34 H (9-20) mg/dL Creatinine (0.66-1.25) mg/dL POC Glucose 140 H (70-110) mg/dL Random Glucose 179 H (70-110) mg/dL Total Protein 6.1 L (6.3-8.2) gm/dL Albumin (3.5-5.0) gm/dL MRSA Culture (Not Detected) 03/02/17 03/03/17 03/03/17 Range/Units 21:35 06:15 06:15 RBC 4.31 L (4.40-5.70) M/uL Hgb 11.9 L (14.0-18.0) gm/dl Hct 37.7 L (42.0-52.0) % MCH (27-33) pg MCHC 31.6 L (32-36) g/dl RDW 14.7 H (11.5-14.5) % MPV 10.9 H (7.4-10.4) fl Lymphocytes % (16-45) % Monocytes % (0-9) % Eosinophils % 6.1 H (0-6) % PT 26.5 H (9.5-12.1) SECONDS Chloride (98-107) mmol/L Carbon Dioxide (22-30) mmol/L BUN (9-20) mg/dL Creatinine (0.66-1.25) mg/dL POC Glucose 136 H (70-110) mg/dL Random Glucose (70-110) mg/dL Total Protein (6.3-8.2) gm/dL Albumin (3.5-5.0) gm/dL MRSA Culture (Not Detected) 03/03/17 03/03/17 03/03/17 Range/Units 06:15 16:30 21:45 RBC (4.40-5.70) M/uL Hgb (14.0-18.0) gm/dl Hct (42.0-52.0) % MCH (27-33) pg MCHC (32-36) g/dl RDW (11.5-14.5) % MPV (7.4-10.4) fl Lymphocytes % (16-45) % Monocytes % (0-9) % Eosinophils % (0-6) % PT (9.5-12.1) SECONDS Chloride 96 L (98-107) mmol/L Carbon Dioxide 34.0 H (22-30) mmol/L BUN 31 H (9-20) mg/dL Creatinine 1.3 H (0.66-1.25) mg/dL POC Glucose 129 H 148 H (70-110) mg/dL Random Glucose 132 H (70-110) mg/dL Total Protein 6.2 L (6.3-8.2) gm/dL Albumin 3.4 L (3.5-5.0) gm/dL MRSA Culture (Not Detected) 03/04/17 03/04/17 03/05/17 Range/Units 06:05 06:11 06:11 RBC (4.40-5.70) M/uL Hgb 12.2 L (14.0-18.0) gm/dl Hct 38.8 L (42.0-52.0) % MCH (27-33) pg MCHC 31.4 L (32-36) g/dl RDW 14.7 H (11.5-14.5) % MPV 11.0 H (7.4-10.4) fl Lymphocytes % (16-45) % Monocytes % (0-9) % Eosinophils % (0-6) % PT 19.4 H (9.5-12.1) SECONDS Chloride 97 L (98-107) mmol/L Carbon Dioxide 33.3 H (22-30) mmol/L BUN 28 H (9-20) mg/dL Creatinine 1.3 H (0.66-1.25) mg/dL POC Glucose (70-110) mg/dL Random Glucose (70-110) mg/dL Total Protein (6.3-8.2) gm/dL Albumin (3.5-5.0) gm/dL MRSA Culture (Not Detected) 03/05/17 03/05/17 03/06/17 Range/Units 17:00 21:30 17:15 RBC (4.40-5.70) M/uL Hgb (14.0-18.0) gm/dl Hct (42.0-52.0) % MCH (27-33) pg MCHC (32-36) g/dl RDW (11.5-14.5) % MPV (7.4-10.4) fl Lymphocytes % (16-45) % Monocytes % (0-9) % Eosinophils % (0-6) % PT (9.5-12.1) SECONDS Chloride (98-107) mmol/L Carbon Dioxide (22-30) mmol/L BUN (9-20) mg/dL Creatinine (0.66-1.25) mg/dL POC Glucose 132 H 140 H 116 H (70-110) mg/dL Random Glucose (70-110) mg/dL Total Protein (6.3-8.2) gm/dL Albumin (3.5-5.0) gm/dL MRSA Culture (Not Detected) 03/07/17 03/07/17 03/08/17 Range/Units 06:12 17:03 07:31 RBC (4.40-5.70) M/uL Hgb (14.0-18.0) gm/dl Hct (42.0-52.0) % MCH (27-33) pg MCHC (32-36) g/dl RDW (11.5-14.5) % MPV (7.4-10.4) fl Lymphocytes % (16-45) % Monocytes % (0-9) % Eosinophils % (0-6) % PT 18.0 H (9.5-12.1) SECONDS Chloride (98-107) mmol/L Carbon Dioxide (22-30) mmol/L BUN (9-20) mg/dL Creatinine (0.66-1.25) mg/dL POC Glucose 137 H 132 H (70-110) mg/dL Random Glucose (70-110) mg/dL Total Protein (6.3-8.2) gm/dL Albumin (3.5-5.0) gm/dL MRSA Culture (Not Detected) 03/08/17 03/09/17 03/09/17 Range/Units 18:10 07:30 08:13 RBC (4.40-5.70) M/uL Hgb (14.0-18.0) gm/dl Hct (42.0-52.0) % MCH (27-33) pg MCHC (32-36) g/dl RDW (11.5-14.5) % MPV (7.4-10.4) fl Lymphocytes % (16-45) % Monocytes % (0-9) % Eosinophils % (0-6) % PT 17.4 H (9.5-12.1) SECONDS Chloride (98-107) mmol/L Carbon Dioxide (22-30) mmol/L BUN (9-20) mg/dL Creatinine (0.66-1.25) mg/dL POC Glucose 120 H 126 H (70-110) mg/dL Random Glucose (70-110) mg/dL Total Protein (6.3-8.2) gm/dL Albumin (3.5-5.0) gm/dL MRSA Culture (Not Detected) 03/10/17 03/10/17 03/10/17 Range/Units 06:00 06:00 06:28 RBC 3.97 L (4.40-5.70) M/uL Hgb 11.0 L (14.0-18.0) gm/dl Hct 35.2 L (42.0-52.0) % MCH (27-33) pg MCHC 31.3 L (32-36) g/dl RDW 14.8 H (11.5-14.5) % MPV 11.2 H (7.4-10.4) fl Lymphocytes % (16-45) % Monocytes % 11.2 H (0-9) % Eosinophils % (0-6) % PT (9.5-12.1) SECONDS Chloride 97 L (98-107) mmol/L Carbon Dioxide 34.8 H (22-30) mmol/L BUN 21 H (9-20) mg/dL Creatinine (0.66-1.25) mg/dL POC Glucose 137 H (70-110) mg/dL Random Glucose (70-110) mg/dL Total Protein 6.2 L (6.3-8.2) gm/dL Albumin (3.5-5.0) gm/dL MRSA Culture (Not Detected) 03/10/17 03/11/17 Range/Units 17:00 09:00 RBC (4.40-5.70) M/uL Hgb (14.0-18.0) gm/dl Hct (42.0-52.0) % MCH (27-33) pg MCHC (32-36) g/dl RDW (11.5-14.5) % MPV (7.4-10.4) fl Lymphocytes % (16-45) % Monocytes % (0-9) % Eosinophils % (0-6) % PT 17.1 H (9.5-12.1) SECONDS Chloride (98-107) mmol/L Carbon Dioxide (22-30) mmol/L BUN (9-20) mg/dL Creatinine (0.66-1.25) mg/dL POC Glucose 140 H (70-110) mg/dL Random Glucose (70-110) mg/dL Total Protein (6.3-8.2) gm/dL Albumin (3.5-5.0) gm/dL MRSA Culture (Not Detected) Condition at Discharge: (2) Stable Discharge Medications - Discharge Medications Home Medications: Ambulatory Orders Ascorbic Acid [Vitamin C] 1,000 mg PO BID 11/02/16 [Last Taken 02/25/17 1000] Atorvastatin Calcium [Lipitor] 40 mg PO QHS 11/02/16 [Last Taken 02/25/17 40] Ferrous Sulfate 325 mg PO TID 11/02/16 [Last Taken 02/25/17 325] Hydromorphone HCl [Dilaudid] 1 mg PO CONT 11/02/16 [Last Taken 11/01/16] Insulin Detemir [Levemir] 6 unit SQ QHS 11/02/16 [Last Taken 02/24/17 6] Magnesium 400 mg PO BID 11/02/16 [Last Taken 02/25/17 400] Multivit-Min/FA/Lycopen/Lutein [Centrum Silver Tablet] 1 each PO DAILY 11/02/16 [Last Taken 02/25/17 1] Oxycodone HCl/Acetaminophen [Percocet 10mg/325mg] 1 - 2 tab PO Q4H PRN 11/02/16 [Last Taken 11/01/16] Ranitidine HCl [Zantac] 150 mg PO DAILY 11/02/16 [Last Taken 02/24/17 150] Tamsulosin HCl [Flomax] 0.4 mg PO DAILY 11/02/16 [Last Taken 02/25/17 0.4] Warfarin Sodium [Coumadin] 2 mg PO DAILY 11/02/16 [Last Taken 02/25/17 3] Amiodarone HCl [Pacerone] 200 mg PO DAILY 02/25/17 [Last Taken 02/25/17 200] Bumetanide [Bumex] 2 mg PO DAILY 02/25/17 [Last Taken Unknown] Cefpodoxime Proxetil 200 mg PO BID 02/25/17 [Last Taken Unknown] Cholecalciferol (Vitamin D3) [Vitamin D3] 5,000 unit PO DAILY 02/25/17 [Last Taken Unknown] Clotrimazole/Betamethasone Dip [Clotrimazole-Betamethasone Crm] 15 gm TP BID [Last Taken Unknown] Doxycycline Hyclate [Doxycycline] 100 mg PO BID 02/25/17 [Last Taken Unknown] Guaifenesin [Guaifenesin ER] 1,200 mg PO BID 02/25/17 [Last Taken 02/25/17 1200] Levalbuterol Tartrate [Xopenex Hfa] 2 puff INH RESP.Q6H PRN 02/25/17 [Last Taken Unknown] Levothyroxine Sodium [Synthroid] 150 mcg PO QAM 02/25/17 [Last Taken 02/25/17 150] Metoprolol Tartrate 50 mg PO BID 02/25/17 [Last Taken 02/25/17 50] Polyethylene Glycol 3350 [Miralax] 17 gm PO DAILY 02/25/17 [Last Taken Unknown] Potassium Chloride [Klor-Con] 20 meq PO BID 02/25/17 [Last Taken Unknown] Prednisone [Prednisone 20Mg] 40 mg PO DAILY 02/25/17 [Last Taken 02/25/17 40] Sennosides/Docusate Sodium [Senna-Docusate Sodium Tablet] 2 each PO QHS [Last Taken Unknown] Discharge Plan - Discharge Instructions Activity at Discharge: Increase Activity as Tolerated Diet at Discharge: Advance to Usual Diet
[2017-03-12] MEDS: METOPROLOL TART 50 MG TABLET PO SCH (11:33)
--- NOTE | 2017-03-12 15:16 | Rehab Discharge Summary ---
Patient Information - Patient Information Diagnosis: deconditioning due to CHF and pneumonia Ordered Treatment: OT Evaluate and Treat Surgery: No History: Detail (The patient was transferred from [facility] for Rehab. The patient was hospitalized for pneumonia.) Past Medical/Surgical Hx: PAST MEDICAL/SURGICAL HISTORY Past Surgical History pump trial with dilaudid implanted cath ( permanent device in place) Back surgery X5, neck surgery, Hip & shoulder sx ,Bunionectomy,bilat right hip replacement, AICD , abscess rt thigh, septic hip, hematoma rt thigh , revision x2, evac of hematoma post rt hip; lumbar rhizotomy 05/31/15. permanent pain pump 2015 PMH - Respiratory Hx Respiratory Disorders Yes Hx Pneumonia Yes: 1989, current 2016 Hx of SOB Yes: occass PMH - Cardiovascular Hx Cardiovascular Disorders Yes Hx Abnormal EKG Yes Hx Congestive Heart Failure Yes Hx Deep Vein Thrombosis Yes: 20 years ago after being kicked by a cow, current rt ankle 01/2017 Hx Edema Yes: bilat legs recent hospitalization Hx Hypertension Yes Hx Irregular Heartbeat Yes: hx a fib had cardioversion 1990 & 01/2017 Hx Pacemaker/Defibrillator Yes: 2014 Comment: hospitalizations states cardiac arrest during past hospitalization 07/18 PMH - Neuro Hx Neurological Disorders No Hx Neuropathy Yes: rt hand Hx Seizures No: denies PMH - GI Hx Gastrointestinal Disorders Yes Hx Gastroesophageal Reflux denies reflux Hx Weight Loss/Weight Gain Yes: loss 20-30# PMH - Hx Genitourinary Disorders No Hx Bladder Problem Yes: retention Hx Prostate Problems No: pt states no but on flomax Hx Urinary Tract Infection Yes PMH - Endocrine Hx Endocrine Disorders Yes Hx Diabetes Yes Hx Thyroid Disease Yes Hx of NIDDM Yes Hx of IDDM Yes Comment: checks blood sugars bid (100-140)/ulcers on feet due to poor circulation PMH - Musculoskeletal Hx Musculoskeletal Disorders Yes Hx Arthritis Yes Hx Back Injury Yes Hx Musculoskeletal Disease Yes Comment: chronic pain; hx septic hip in past PMH - Psych Hx Psychiatric Problems No PMH - Hematology/Oncology Hx Hematology/Oncology Yes Disorders Hx Anemia Yes Hx Bruising Yes Hx Cancer Yes: skin Hx Clotting Problems Yes Hx Blood Transfusion Reaction No Comment: pt to bridge with Lovenox 4 days preop Premorbid Status: Detail (Prior to hospitalization the patient was ambulating with 2 canes outside and 1 cane in the home. The patient was independent with all ADL's and cooking. The patient's daughter assisted the patient with nanny babysitter.) Social History: Detail (The patient lives alone in a one story home with 3 steps at the entrance and 1 handrail. The patient has 2 bathrooms one with a walk in shower stall and one with tub/shower combo with grab bar and one with elevated toilet, the other with a standard toilet. The patient has canes, and a wheeled walker.) Precautions: Bloomery, Fall, Other (Past history of MRSA) Objective Data - Pain Pain Present: Yes - Mental Status Patient Orientation: Oriented x3 - Visual Perception Appears within normal limits for therapeutic activities - ROM Within normal limits (Ozzy UE AROM WNL) - Strength/Tone Within normal limits (Ozzy UE MMT WNL for patients level of activity) - Coordination Appears within normal limits for therapeutic activities - Bed Mobility Independent - Transfers Independent - Balance Balance Sitting: Good Balance Standing: Good - Sensation Intact - Gait Detail (Ind with ambulation using assistive device) - ADL's/IADL's Detail (Ind with self care activities) Therapy Assessment - Therapy Assessment Detail (Pt is Ind with ADLs and functional mobility) Problem List - Problem List Physical Therapy Problem List: Detail (1) Decreased R LE strength 2) Impaired balance 3) Decreased ability to complete sustained physical activity) Occupational Therapy Problem List: Detail (1. Decreased endurance needed for safe and Ind ADLs/IADLs. 2. Decreased UE AROM and strength needed for IADLs.) Goals - Goals Physical Therapy Goals: GOALS MET: 1)Assess bed mobility. 2) The patient will ambulate with assistive device distances of 300 feet indpendently on levels and steps. 4) Improve the patient's balance 3 to 4 points on Tinetti Balance Scale. GOAL PARTIALLY MET: 3) The patient's R LE strength will improve 1/3 muscle grade Occupational Therapy Goals: Goals Met: 1. Pt will improve endurance needed for safe and Ind ADLs/IADLs 2. Pt will improve ozzy shoulder AROM by 20 degrees and improve strength to 4+/5 within AROM limitations to allow Ind with IADLs. Prognosis - Prognosis Good Plan - Plan Physical Therapy Plan: Patient is to be discharged to home today. The patient is to continue with outpatient PT. Occupational Therapy Plan: Pt discharged home with no further OT needs at this time.
== END 2017-03-12 15:00 | disposition home health service (06) | DRG 948 ==
LOC: MEDSURG 02-25 14:34
PROVIDERS: ADMIT Family Medicine; ATTEND Family Medicine
DX: R53.1 Weakness (principal); I50.32 Chronic diastolic (congestive) heart failure; L03.90 Cellulitis, unspecified; I25.10 Atherosclerotic heart disease of native coronary artery without angina pectoris; Z95.810 Presence of automatic (implantable) cardiac defibrillator; I65.23 Occlusion and stenosis of bilateral carotid arteries; I34.0 Nonrheumatic mitral (valve) insufficiency; E11.9 Type 2 diabetes mellitus without complications; I48.2 Chronic atrial fibrillation; Z79.01 Long term (current) use of anticoagulants; I10 Essential (primary) hypertension; Z79.4 Long term (current) use of insulin; E03.9 Hypothyroidism, unspecified
CPT/HCPCS: 36416; 80053; 82948; 85025; 85027; 85610; 94640; 97110; 97116; 97140; 97165; 97530; 99306; 99309; 99316; J7512

== ENCOUNTER 2017-04-15 01:24 | Emergency (ER) | payer MEDICARE, OTHER ==
--- NOTE | 2017-04-15 01:47 | Emergency Department Record ---
History of Present Illness - General Chief Complaint: General Stated Complaint: LOW POTASSIUM Source: Patient Mode of Arrival: Ambulatory Limitations: No limitations - History of Present Illness Initial comments: 76 yo male presents to ED with a CC of low potassium. Patient reports that he underwent routine blood draw Friday afternoon, was called tonight and told that his potassium level was low. Patient denies any symptoms but reports "I just don't feel right". Patient denies weakness, fatigue, chest pain, numbness , or tingling symptoms. Patient reports that he takes 20 meq of potassium daily for replacement that is lost due to diuretic use. Onset/Timin -: Days(s) Improves with: None Worsens with: None Associated Symptoms: Denies other symptoms Treatments Prior to Arrival: None - Ford Coma Scale Eye Response: (4) Open spontaneously Motor Response: (6) Obeys commands Verbal Response: (5) Oriented Ford Total: 15 - Related Data Home Medications Medication Instructions Recorded Confirmed Last Taken Ascorbic Acid [Vitamin C] 1,000 mg PO BID 11/02/16 04/15/17 04/14/17 Atorvastatin Calcium [Lipitor] 40 mg PO QHS 11/02/16 04/15/17 04/14/17 Ferrous Sulfate 325 mg PO TID 11/02/16 04/15/17 04/14/17 Hydromorphone HCl [Dilaudid] 1 mg PO CONT 11/02/16 04/15/17 04/15/17 Insulin Detemir [Levemir] 6 unit SQ QHS 11/02/16 04/15/17 04/14/17 Magnesium 400 mg PO BID 11/02/16 04/15/17 04/14/17 Multivit-Min/FA/Lycopen/Lutein 1 each PO DAILY 11/02/16 04/15/17 04/14/17 [Centrum Silver Tablet] Oxycodone HCl/Acetaminophen 1 - 2 tab PO Q4H PRN 11/02/16 04/15/17 04/14/17 [Percocet 10mg/325mg] Ranitidine HCl [Zantac] 150 mg PO DAILY 11/02/16 04/15/17 04/14/17 Tamsulosin HCl [Flomax] 0.4 mg PO DAILY 11/02/16 04/15/17 04/14/17 Warfarin Sodium [Coumadin] 2 mg PO DAILY 11/02/16 04/15/17 04/14/17 Amiodarone HCl [Pacerone] 200 mg PO DAILY 02/25/17 04/15/17 04/14/17 Bumetanide [Bumex] 2 mg PO DAILY 02/25/17 04/15/17 04/14/17 Cefpodoxime Proxetil 200 mg PO BID 02/25/17 04/15/17 04/14/17 \\ Cholecalciferol (Vitamin D3) 5,000 unit PO DAILY 02/25/17 04/15/17 04/14/17 [Vitamin D3] Clotrimazole/Betamethasone Dip 15 gm TP BID 02/25/17 04/15/17 04/14/17 [Clotrimazole-Betamethasone Crm] Doxycycline Hyclate [Doxycycline] 100 mg PO BID 02/25/17 04/15/17 Unknown Guaifenesin [Guaifenesin ER] 1,200 mg PO BID 02/25/17 04/15/17 02/25/17 1200 Levalbuterol Tartrate [Xopenex Hfa] 2 puff INH RESP.Q6H PRN 02/25/17 04/15/17 Levothyroxine Sodium [Synthroid] 150 mcg PO QAM 02/25/17 04/15/17 04/14/17 Metoprolol Tartrate 50 mg PO BID 02/25/17 04/15/17 04/14/17 Polyethylene Glycol 3350 [Miralax] 17 gm PO DAILY 02/25/17 04/15/17 04/14/17 Potassium Chloride [Klor-Con] 20 meq PO BID 02/25/17 04/15/17 04/14/17 Prednisone [Prednisone 20Mg] 40 mg PO DAILY 02/25/17 04/15/17 04/14/17 Sennosides/Docusate Sodium 2 each PO QHS 02/25/17 04/15/17 04/14/17 [Senna-Docusate Sodium Tablet] Allergies Allergy/AdvReac Type Severity Reaction Status Date / Time onion Allergy Intermediate NAUSEA Verified 01/30/16 14:13 Review of Systems Constitutional: Denies: Chills, Fever, Malaise, Night sweats Eyes: Denies: Eye discharge, Eye pain ENT: Denies: Congestion, Ear pain, Epistaxis Respiratory: Denies: Cough, Dyspnea Cardiovascular: Denies: Chest pain, Dyspnea on exertion Endocrine: Denies: Fatigue, Heat or cold intolerance Gastrointestinal: Denies: Abdominal pain, Nausea, Vomiting Genitourinary: Denies: Incontinence, Retention Musculoskeletal: Denies: Arthralgia, Back pain, Gout, Joint swelling Skin: Denies: Bruising, Change in color Neurological: Denies: Abnormal gait, Confusion, Headache, Seizure Psychiatric: Denies: Anxiety Hematological/Lymphatic: Denies: Anemia, Blood Clots Past Medical History - SOCIAL HISTORY Smoking Status: Former smoker - RESPIRATORY Hx Respiratory Disorders: Yes Hx Pneumonia: Yes (1989, current 2016) - CARDIOVASCULAR Hx Cardio Disorders: Yes Hx Abnormal EKG: Yes Hx CHF: Yes Hx Deep Vein Thrombosis: Yes (20 years ago after being kicked by a cow, current rt ankle 01/2017) Hx Edema: Yes (bilat legs recent hospitalization) Hx Hypertension: Yes Hx Irregular Heartbeat: Yes (hx a fib had cardioversion 1990 & 01/2017) Hx Pacemaker/Defib: Yes (2014) Comment:: hospitalizations states cardiac arrest during past hospitalization - NEURO Hx Seizures: No (denies) - GI Hx GI Disorders: Yes Hx Reflux: (denies reflux) Hx Wt Loss/Wt Gain: Yes (loss 20-30#) - Hx Genitourinary Disorders: No Hx Prostate Problems: No (pt states no but on flomax) - ENDOCRINE Hx Diabetes: Yes - MUSCULOSKELETAL Hx Musculoskeletal Disorders: Yes Hx Arthritis: Yes Hx Back Injury: Yes Hx Musculoskeletal Disease: Yes Comment:: chronic pain; hx septic hip in past - PSYCH Hx Psych Problems: No - HEMATOLOGY/ONCOLOGY Hx Hematology/Oncology Disorders: Yes Hx Anemia: Yes Hx Bruising: Yes Hx Cancer: Yes (skin) Hx Clotting Problems: Yes Hx Blood Transfusions: Yes (with hip surgery, and hematoma) Hx Blood Transfusion Reaction: No Family Medical History Hx Cancer: Father, Mother Hx Dementia: Mother *Dementia Comment: mother alzheimers Physical Exam - General General Appearance: Alert, Oriented x3, Cooperative, No acute distress Limitations: No limitations - Head Head exam: Atraumatic, Normocephalic, Normal inspection Head exam detail: negative: Abrasion, Contusion, Bravo's sign, General tenderness, Hematoma, Laceration - Eye Eye exam: Normal appearance. negative: Conjunctival injection, Periorbital swelling, Periorbital tenderness, Scleral icterus - ENT Ear exam: negative: Auricular hematoma, Auricular trauma Nasal Exam: negative: Active bleeding, Discharge, Dried blood, Foreign body Mouth exam: negative: Drooling, Laceration, Muffled voice, Tongue elevation - Neck Neck exam: Normal inspection. negative: Meningismus, Tenderness - Respiratory Respiratory exam: Normal lung sounds bilaterally. negative: Rales, Respiratory distress, Rhonchi, Stridor - Cardiovascular Cardiovascular Exam: Regular rate, Normal rhythm, Normal heart sounds - GI/Abdominal GI/Abdominal exam: Soft. negative: Rebound, Rigid, Tenderness - Rectal Rectal exam: Deferred - exam: Deferred - Extremities Extremities exam: Pedal edema. negative: Calf tenderness, Tenderness - Back Back exam: Denies: CVA tenderness (R), CVA tenderness (L) - Neurological Neurological exam: Alert, Normal gait, Oriented X3 - Psychiatric Psychiatric exam: Normal affect, Normal mood - Skin Skin exam: Other. negative: Abrasion Type of lesion: negative: abrasion Course - Reevaluation(s) Reevaluation #1: 04/15/17 01:46 Patient seen and examined, EKG and laboratory studies ordered for evaluation of possible hypokalemia. Reevaluation #2: 04/15/17 01:55 EKG: Paced Rhythm 76 No further interpretation due to pacing. Reevaluation #3: 04/15/17 02:20 Labs reviewed, Potassium 3.7. BUN 53 (baseline 21-42) and Creatinine 1.6 ( baseline 1.3). Patient appears stable for discharge with instructions for follow-up with his PCP in 3-5 days as directed. Medical Decision Making - Lab Data Result diagrams: 04/15/17 01:58 04/15/17 01:58 Disposition Disposition: Discharge Clinical Impression: Laboratory examination Disposition: Home, Self-Care Condition: (2) Stable Additional Instructions: Return to ED if your symptoms worsen or if you have any concerns. Follow-up with your family doctor in 3-5 days as directed. Forms: Patient Portal Access Time of Disposition: 02:24
[2017-04-15 02:01] LABS: BASO % 0.4 % (0-6); EOS % 8.2 % (0-6); HEMATOCRIT 36.7 % (42.0-52.0); HEMOGLOBIN 11.7 gm/dl (14.0-18.0); LYMPH % 24.8 % (16-45); MEAN CELL VOLUME 89.1 fl (81-97); MEAN CORPUSCULAR HEMOGLOBIN 28.3 pg (27-33); MEAN CORPUSCULAR HGB CONC 31.9 g/dl (32-36); MEAN PLATELET VOLUME 10.8 fl (7.4-10.4); MONO % 10.6 % (0-9); PLATELET COUNT 191 K/uL (130-400); RED BLOOD COUNT 4.12 M/uL (4.40-5.70); RED CELL DISTRIBUTION WIDTH 15.1 % (11.5-14.5); WHITE BLOOD COUNT W/O DIFF 5.4 K/uL (4.2-12.2)
[2017-04-15 02:12] LABS: ALB/GLOB RATIO 1.4 (1.1-1.8); ALBUMIN 4.5 gm/dL (3.5-5.0); ANION GAP 10.4 (7-16); BILIRUBIN,TOTAL 0.75 mg/dL (0.2-1.3); CARBON DIOXIDE 35.6 mmol/L (22-30); CREATININE 1.6 mg/dL (0.66-1.25); TOTAL PROTEIN 7.8 gm/dL (6.3-8.2)
== END 2017-04-15 02:40 | disposition home or self-care (01) ==
LOC: ER 01:24
DX: E87.6 Hypokalemia (principal); I10 Essential (primary) hypertension; I50.9 Heart failure, unspecified; E11.9 Type 2 diabetes mellitus without complications; Z79.4 Long term (current) use of insulin; Z87.891 Personal history of nicotine dependence
CPT/HCPCS: 80053; 85025; 93005; 93010; 99284

== ENCOUNTER 2017-07-14 19:58 | Emergency (ER) | payer MEDICARE, OTHER ==
--- NOTE | 2017-07-14 20:11 | Emergency Department Record ---
History of Present Illness - General Chief Complaint: Shortness of breath Stated Complaint: DEYSI/AFIB Time Seen by Provider: 07/14/17 20:06 Source: Patient Mode of Arrival: Wheelchair Limitations: No limitations - History of Present Illness Initial Comments: 76 yo male presents to ED with a CC of worsening DEYSI for the past several days. Patient reports that [facility] contacted him several days ago to let him know that he was back in atrial fibrillation, reports that his symptoms have worsened since that time. [facility] also increased his diuretic this afternoon, but has not improved his symptoms as of yet. Patient also reports history of congestive heart failure, denies fevers, chills, or recent illness. MD Complaint: Shortness of breath Onset/Timin -: Days(s) Severity: Moderate Consistency: Constant Improves With: Nothing Worsens With: Exertion Known History Of: Congestive heart failure Associated Symptoms: Edema Treatments Prior to Arrival: Diuretics - Related Data Home Oxygen Therapy: No Home Medications Medication Instructions Recorded Confirmed Last Taken Metolazone [Zaroxolyn] 2.5 mg PO ASDIR 07/14/17 07/14/17 Unknown Metoprolol/Hydrochlorothiazide 1 each PO BID 07/14/17 07/14/17 Unknown [Lopressor Hct 50-25 Tablet] Torsemide [Demadex] 20 mg PO DAILY 07/14/17 07/14/17 Unknown Allergies Allergy/AdvReac Type Severity Reaction Status Date / Time onion Allergy Intermediate NAUSEA Verified 01/30/16 14:13 Review of Systems Constitutional: Denies: Chills, Fever, Malaise, Night sweats Eyes: Denies: Eye discharge, Eye pain ENT: Denies: Congestion, Ear pain, Epistaxis Respiratory: Reports: Dyspnea. Denies: Cough Cardiovascular: Reports: Dyspnea on exertion, Edema, Palpitations. Denies: Chest pain Endocrine: Denies: Fatigue, Heat or cold intolerance Gastrointestinal: Denies: Abdominal pain, Nausea, Vomiting Genitourinary: Denies: Incontinence, Retention Musculoskeletal: Denies: Arthralgia, Back pain, Gout, Joint swelling Skin: Denies: Bruising, Change in color Neurological: Denies: Abnormal gait, Confusion, Headache, Seizure Psychiatric: Denies: Anxiety Hematological/Lymphatic: Reports: Easy bleeding. Denies: Anemia, Blood Clots Past Medical History - SOCIAL HISTORY Smoking Status: Former smoker - RESPIRATORY Hx Respiratory Disorders: Yes Hx Pneumonia: Yes (1989, current 2016) - CARDIOVASCULAR Hx Cardio Disorders: Yes Hx Abnormal EKG: Yes Hx CHF: Yes Hx Deep Vein Thrombosis: Yes (20 years ago after being kicked by a cow, current rt ankle 01/2017) Hx Edema: Yes (bilat legs recent hospitalization) Hx Hypertension: Yes Hx Irregular Heartbeat: Yes (hx a fib had cardioversion 1990 & 01/2017) Hx Pacemaker/Defib: Yes (2014) Comment:: hospitalizations states cardiac arrest during past hospitalization - NEURO Hx Seizures: No (denies) - GI Hx GI Disorders: Yes Hx Reflux: (denies reflux) Hx Wt Loss/Wt Gain: Yes (loss 20-30#) - Hx Genitourinary Disorders: No Hx Prostate Problems: No (pt states no but on flomax) - ENDOCRINE Hx Diabetes: Yes - MUSCULOSKELETAL Hx Musculoskeletal Disorders: Yes Hx Arthritis: Yes Hx Back Injury: Yes Hx Musculoskeletal Disease: Yes Comment:: chronic pain; hx septic hip in past - PSYCH Hx Psych Problems: No - HEMATOLOGY/ONCOLOGY Hx Hematology/Oncology Disorders: Yes Hx Anemia: Yes Hx Bruising: Yes Hx Cancer: Yes (skin) Hx Clotting Problems: Yes Hx Blood Transfusions: Yes (with hip surgery, and hematoma) Hx Blood Transfusion Reaction: No Family Medical History Hx Cancer: Father, Mother Hx Dementia: Mother *Dementia Comment: mother alzheimers Physical Exam - General General Appearance: Alert, Oriented x3, Cooperative, Moderate distress Limitations: No limitations - Head Head exam: Atraumatic, Normocephalic, Normal inspection Head exam detail: negative: Abrasion, Contusion, Bravo's sign, General tenderness, Hematoma, Laceration - Eye Eye exam: Normal appearance. negative: Conjunctival injection, Periorbital swelling, Periorbital tenderness, Scleral icterus - ENT Ear exam: negative: Auricular hematoma, Auricular trauma Nasal Exam: negative: Active bleeding, Discharge, Dried blood, Foreign body Mouth exam: negative: Drooling, Laceration, Muffled voice, Tongue elevation - Neck Neck exam: Normal inspection. negative: Meningismus, Tenderness - Respiratory Respiratory exam: Decreased breath sounds. negative: Rales, Respiratory distress, Rhonchi, Stridor - Cardiovascular Cardiovascular Exam: Irregular rhythm - GI/Abdominal GI/Abdominal exam: Soft. negative: Rebound, Rigid, Tenderness - Rectal Rectal exam: Deferred - exam: Deferred - Extremities Extremities exam: Pedal edema. negative: Tenderness - Back Back exam: Denies: CVA tenderness (R), CVA tenderness (L) - Neurological Neurological exam: Alert, Normal gait, Oriented X3 - Psychiatric Psychiatric exam: Normal affect, Normal mood - Skin Skin exam: Normal color. negative: Abrasion Type of lesion: negative: abrasion Course - Reevaluation(s) Reevaluation #1: 07/14/17 20:29 EKG: Atrial Fibrillation with intermittent paced rhythm T wave inversions III, AVF Previous rhythm was paced only with no intrinsic rhythm present. Reevaluation #2: 07/14/17 21:14 Labs reviewed, Hgb 11.8, INR 3.09, CO2 34, BUN 101.5 (48), Creatinine 1.7 ( baseline 1.3). BNP 8823. Reevaluation #3: 07/14/17 21:22 CXR: Elevation left chau-diaphragm, cardiomegaly, nothing acute. Patient was updated on all results, will initiate transfer for nephrology consultation. [facility]-call contacted. Reevaluation #4: 07/14/17 22:21 Case was discussed with Dr. Lind and Dr. Griggs, will accept transfer for further evaluation. Medical Decision Making - Lab Data Result diagrams: 07/14/17 20:12 07/14/17 20:12 Disposition Disposition: Transfer Clinical Impression: JOAN (acute kidney injury) CHF (congestive heart failure) Qualifiers: Congestive heart failure type: unspecified congestive heart failure type Congestive heart failure chronicity: acute on chronic Qualified Code(s): I50.9 - Heart failure, unspecified CRF (chronic renal failure) Qualifiers: Chronic kidney disease stage: unspecified stage Qualified Code(s): N18.9 - Chronic kidney disease, unspecified Disposition: Acute Care Hospital Transfer Transfer To: [facility] Reason For Transfer: Acute renal failure, CHF Accepting Physician: Indu Time Discussed w/Accepting Physician: 21:25 Condition: (2) Stable Forms: Patient Portal Access Time of Disposition: 22:30 Quality - Quality Measures Quality Measures: N/A - Blood Pressure Screening Does Patient Have Any of the Following: No Blood Pressure Classification: Normal BP Reading Systolic Measurement: 116 Diastolic Measurement: 66 Screening for High Blood Pressure: < Normal BP, F/U Not Required > [[id number]]
[2017-07-14 20:17] LABS: BASO % 0.1 % (0-6); EOS % 0.5 % (0-6); HEMATOCRIT 36.8 % (42.0-52.0); HEMOGLOBIN 11.8 gm/dl (14.0-18.0); LYMPH % 8.5 % (16-45); MEAN CELL VOLUME 88.9 fl (81-97); MEAN CORPUSCULAR HEMOGLOBIN 28.5 pg (27-33); MEAN CORPUSCULAR HGB CONC 32.1 g/dl (32-36); MEAN PLATELET VOLUME 10.1 fl (7.4-10.4); MONO % 11.9 % (0-9); PLATELET COUNT 208 K/uL (130-400); RED BLOOD COUNT 4.14 M/uL (4.40-5.70); RED CELL DISTRIBUTION WIDTH 14.4 % (11.5-14.5); WHITE BLOOD COUNT W/O DIFF 8.9 K/uL (4.2-12.2)
[2017-07-14 20:28] LABS: INR 3.09; PROTHROMBIN TIME (PATIENT) 33.8 SECONDS (9.5-12.1)
[2017-07-14 20:40] LABS: ALB/GLOB RATIO 1.4 (1.1-1.8); ALBUMIN 4.3 g/dL (4.0-5.0); BILIRUBIN,TOTAL 1.4 mg/dL (0.2-1.0); CREATININE 1.7 mg/dL (0.7-1.2); TOTAL PROTEIN 7.3 g/dL (6.6-8.7)
[2017-07-14 20:41] LABS: TROPONIN I 0.06 ng/mL (0.00-0.300)
[2017-07-14 20:54] LABS: CKMB RELATIVE INDEX 2.2 % (0-4)
--- NOTE | 2017-07-15 13:56 | RADIOLOGY REPORT ---
EXAM: CHEST, TWO VIEWS HISTORY: INCREASING SHORTNESS OF BREATH. HISTORY OF ATRIAL FIBRILLATION. TECHNIQUE: PA and lateral upright views of the chest were obtained. Comparison: 01/24/17. FINDINGS: An ICD is in place and is unchanged. The heart is upper normal in size. The mediastinum and pulmonary vasculature appear normal. There is mild elevation of the left hemidiaphragm. There are no visible acute infiltrates or effusions. There is no pneumothorax. The bones appear intact. IMPRESSION: 1. NO ACUTE CHEST PATHOLOGY. 2. MILD ELEVATION OF THE LEFT HEMIDIAPHRAGM. 3. ICD IN PLACE. JOB NUMBER: [id number] MTDD
[2017-07-16 13:32] LABS: BLOOD UREA NITROGEN 101.5 mg/dL (8-23)
== END 2017-07-14 22:41 | disposition short-term general hospital (02) ==
LOC: ER 19:58
DX: N17.9 Acute kidney failure, unspecified (principal); N18.9 Chronic kidney disease, unspecified; I48.91 Unspecified atrial fibrillation; I50.9 Heart failure, unspecified; E11.22 Type 2 diabetes mellitus with diabetic chronic kidney disease; I12.9 Hypertensive chronic kidney disease with stage 1 through stage 4 chronic kidney disease, or unspecified chronic kidney disease; Z87.891 Personal history of nicotine dependence
CPT/HCPCS: 71020; 80053; 82550; 82553; 83880; 84484; 85025; 85610; 93005; 93010; 99285

== ENCOUNTER 2017-09-07 20:38 | Emergency (ER) | payer MEDICARE, OTHER ==
[2017-09-07] MEDS ORDERED: METHYLPREDNISOLONE PF 125MG/VIAL IVP ONE (21:22)
[2017-09-07] MEDS ORDERED: IPRATROPIUM/ALBUTEROL (0.5MG/3MG) NEB INH ONE (21:22)
[2017-09-07 21:31] LABS: BASO % 0.3 % (0-6); EOS % 5.2 % (0-6); GRAN % 74.8 % (47-80); HEMATOCRIT 36.2 % (42.0-52.0); HEMOGLOBIN 11.6 gm/dl (14.0-18.0); LYMPH % 8.5 % (16-45); MEAN CELL VOLUME 87.9 fl (81-97); MEAN PLATELET VOLUME 11.5 fl (7.4-10.4); MONO % 11.2 % (0-9); PLATELET COUNT 259 K/uL (130-400); RED BLOOD COUNT 4.12 M/uL (4.40-5.70); RED CELL DISTRIBUTION WIDTH 14.8 % (11.5-14.5); WHITE BLOOD COUNT W/O DIFF 10.1 K/uL (4.2-12.2)
[2017-09-07 21:32] LABS: MEAN CORPUSCULAR HEMOGLOBIN 28.1 pg (27-33)
[2017-09-07 21:43] LABS: ALB/GLOB RATIO 1.3 (1.1-1.8); ALBUMIN 4.1 g/dL (4.0-5.0); BILIRUBIN,TOTAL 0.7 mg/dL (0.2-1.0); CREATININE 2.6 mg/dL (0.7-1.2); TOTAL PROTEIN 7.2 g/dL (6.6-8.7)
--- NOTE | 2017-09-07 22:23 | Emergency Department Record ---
History of Present Illness - General Chief Complaint: Shortness of breath Stated Complaint: DEYSI Time Seen by Provider: 09/07/17 21:15 Source: Patient Mode of Arrival: Ambulatory Limitations: No limitations - History of Present Illness Initial Comments: pt has been increasingly sob tonight. he has also had some chest tightness. he is currently being bridged from coumadin to lovenox so that he can have a procedure done. he has a hx of dvt MD Complaint: Shortness of breath Onset/Timin -: Hour(s) Improves With: Upright position Known History Of: Congestive heart failure, COPD, DVT, Recurrent pneumonia Associated Symptoms: Chest pain, Cough - Related Data Home Medications Medication Instructions Recorded Confirmed Last Taken Fluticasone/Salmeterol [Advair 1 each IH BID 09/07/17 09/07/17 Unknown 250-50 Diskus] Allergies Allergy/AdvReac Type Severity Reaction Status Date / Time onion Allergy Intermediate NAUSEA Verified 01/30/16 14:13 Travel Screening - Travel/Exposure Within Last 30 Days Have you traveled within the last 30 days?: No Review of Systems Reviewed: No additional complaints except as noted below Constitutional: Reports: As per HPI. Denies: Chills, Fever, Malaise, Night sweats, Weakness, Weight change Eyes: Reports: As per HPI. Denies: Eye discharge, Eye pain, Photophobia, Vision change ENT: Reports: As per HPI. Denies: Congestion, Dental pain, Ear pain, Epistaxis , Hearing loss, Throat pain Respiratory: Reports: As per HPI. Denies: Cough, Dyspnea, Hemoptysis, Stridor, Wheezes Cardiovascular: Reports: As per HPI. Denies: Arrhythmia, Chest pain, Dyspnea on exertion, Edema, Murmurs, Orthopnea, Palpitations, Paroxysmal nocturnal dyspnea, Rheumatic Fever, Syncope Endocrine: Reports: As per HPI. Denies: Fatigue, Heat or cold intolerance, Polydipsia, Polyuria Gastrointestinal: Reports: As per HPI. Denies: Abdominal pain, Constipation, Diarrhea, Hematemesis, Hematochezia, Melena, Nausea, Vomiting Genitourinary: Reports: As per HPI. Denies: Dysuria, Frequency, Hematuria, Incontinence, Retention, Testicular pain, Testicular mass, Urgency Musculoskeletal: Reports: As per HPI. Denies: Arthralgia, Back pain, Gout, Joint swelling, Myalgia, Neck pain Skin: Reports: As per HPI. Denies: Bruising, Change in color, Change in hair/ nails, Lesions, Pruritus, Rash Neurological: Reports: As per HPI. Denies: Abnormal gait, Confusion, Headache, Numbness, Paresthesias, Seizure, Tingling, Tremors, Vertigo, Weakness Psychiatric: Reports: As per HPI. Denies: Anxiety, Auditory hallucinations, Depression, Homicidal thoughts, Suicidal thoughts, Visual hallucinations Hematological/Lymphatic: Reports: As per HPI. Denies: Anemia, Blood Clots, Easy bleeding, Easy bruising, Swollen glands Past Medical History - SOCIAL HISTORY Smoking Status: Former smoker Alcohol Use: None Drug Use: None - RESPIRATORY Hx Respiratory Disorders: Yes Hx Pneumonia: Yes (1989, current 2016) - CARDIOVASCULAR Hx Cardio Disorders: Yes Hx Abnormal EKG: Yes Hx CHF: Yes Hx Deep Vein Thrombosis: Yes (20 years ago after being kicked by a cow, current rt ankle 01/2017) Hx Edema: Yes (bilat legs recent hospitalization) Hx Hypertension: Yes Hx Irregular Heartbeat: Yes (hx a fib had cardioversion 1990 & 01/2017) Hx Pacemaker/Defib: Yes (2014) Comment:: hospitalizations states cardiac arrest during past hospitalization - NEURO Hx Neuro Disorders: No Hx Seizures: No (denies) - GI Hx GI Disorders: Yes Hx Reflux: (denies reflux) Hx Wt Loss/Wt Gain: Yes (loss 20-30#) - Hx Genitourinary Disorders: No Hx Prostate Problems: No (pt states no but on flomax) - ENDOCRINE Hx Endocrine Disorders: Yes Hx Diabetes: Yes - MUSCULOSKELETAL Hx Musculoskeletal Disorders: Yes Hx Arthritis: Yes Hx Back Injury: Yes Hx Musculoskeletal Disease: Yes Comment:: chronic pain; hx septic hip in past - PSYCH Hx Psych Problems: No - HEMATOLOGY/ONCOLOGY Hx Hematology/Oncology Disorders: Yes Hx Anemia: Yes Hx Bruising: Yes Hx Cancer: Yes (skin) Hx Clotting Problems: Yes Hx Blood Transfusions: Yes (with hip surgery, and hematoma) Hx Blood Transfusion Reaction: No Family Medical History Any Significant Family History?: Yes Hx Cancer: Father, Mother Hx Dementia: Mother *Dementia Comment: mother alzheimers Physical Exam - General General Appearance: Alert, Oriented x3, Cooperative, Mild distress - Head Head exam: Normal inspection - Eye Eye exam: Normal appearance, PERRL, EOMI Pupils: Normal accommodation - ENT ENT exam: Normal exam, Mucous membranes moist, Normal external ear exam, Normal orophraynx Ear exam: Normal external inspection. negative: External canal tenderness Nasal Exam: Normal inspection. negative: Discharge, Sinus tenderness Mouth exam: Normal external inspection, Tongue normal Teeth exam: Normal inspection. negative: Dental caries Throat exam: Normal inspection. negative: Tonsillar erythema, Tonsillar exudate - Neck Neck exam: Normal inspection, Full ROM. negative: Tenderness - Respiratory Respiratory exam: Normal lung sounds bilaterally. negative: Respiratory distress - Cardiovascular Cardiovascular Exam: Regular rate, Normal rhythm, Normal heart sounds - GI/Abdominal GI/Abdominal exam: Soft, Normal bowel sounds. negative: Tenderness - Rectal Rectal exam: Deferred - exam: Deferred - Extremities Extremities exam: Normal inspection, Calf tenderness, Full ROM, Normal capillary refill, Pedal edema, Tenderness - Back Back exam: Reports: Normal inspection, Full ROM. Denies: Muscle spasm, Rash noted, Tenderness - Neurological Neurological exam: Alert, CN II-XII intact, Normal gait, Oriented X3 - Psychiatric Psychiatric exam: Normal affect, Normal mood - Skin Skin exam: Dry, Intact, Normal color, Warm Course Vital Signs 09/07/17 09/07/17 09/07/17 20:40 21:28 22:06 Temperature 98.1 F Pulse Rate 69 70 Pulse Rate [ 70 [employer] ] Respiratory 24 18 20 Rate Blood Pressure 119/71 Blood Pressure 120/75 [Left Arm] Pulse Ox 97 100 97 - Reevaluation(s) Reevaluation #1: 09/07/17 23:38 pt did not have cp while here Reevaluation #2: 09/07/17 23:49 pt feels better Medical Decision Making - Lab Data Result diagrams: 09/07/17 20:55 09/07/17 20:55 Lab Results 09/07/17 09/07/17 09/07/17 Range/Units 20:55 20:55 20:55 WBC 10.1 (4.2-12.2) K/uL RBC 4.12 L (4.40-5.70) M/uL Hgb 11.6 L (14.0-18.0) gm/dl Hct 36.2 L (42.0-52.0) % MCV 87.9 (81-97) fl MCH 28.1 (27-33) pg MCHC 32.0 (32-36) g/dl RDW 14.8 H (11.5-14.5) % Plt Count 259 (130-400) K/uL MPV 11.5 H (7.4-10.4) fl Gran % 74.8 (47-80) % Lymphocytes % 8.5 L (16-45) % Monocytes % 11.2 H (0-9) % Eosinophils % 5.2 (0-6) % Basophils % 0.3 (0-6) % D-Dimer 0.36 (0-0.59) mg/L FEU Sodium 133 L (136-145) mmol/L Potassium 3.7 (3.4-4.5) mmol/L Chloride 85 L (98-107) mmol/L Carbon Dioxide 33.0 H (22-29) mmol/L Anion Gap 15.0 (7-16) BUN 93 H (8-23) mg/dL Creatinine 2.6 H (0.7-1.2) mg/dL Estimated GFR 26 mL/min Random Glucose 172 H (74-109) mg/dL Calcium 9.1 (8.8-10.2) mg/dL Total Bilirubin 0.70 (0.2-1.0) mg/dL AST 60 H (10.0-50.0) U/L ALT 39 (<41) U/L Alkaline Phosphatase 93 (40-129) U/L Troponin T 0.086 H (0-0.010) ng/mL NT-Pro-B Natriuret Pep 7070.00 H (<450) pg/mL Total Protein 7.2 (6.6-8.7) g/dL Albumin 4.1 (4.0-5.0) g/dL Globulin 3.1 (1.4-4.8) gm/dL Albumin/Globulin Ratio 1.3 (1.1-1.8) 09/07/17 Range/Units 21:24 WBC (4.2-12.2) K/uL RBC (4.40-5.70) M/uL Hgb (14.0-18.0) gm/dl Hct (42.0-52.0) % MCV (81-97) fl MCH (27-33) pg MCHC (32-36) g/dl RDW (11.5-14.5) % Plt Count (130-400) K/uL MPV (7.4-10.4) fl Gran % (47-80) % Lymphocytes % (16-45) % Monocytes % (0-9) % Eosinophils % (0-6) % Basophils % (0-6) % D-Dimer (0-0.59) mg/L FEU Sodium (136-145) mmol/L Potassium (3.4-4.5) mmol/L Chloride (98-107) mmol/L Carbon Dioxide (22-29) mmol/L Anion Gap (7-16) BUN (8-23) mg/dL Creatinine (0.7-1.2) mg/dL Estimated GFR mL/min Random Glucose (74-109) mg/dL Calcium (8.8-10.2) mg/dL Total Bilirubin (0.2-1.0) mg/dL AST (10.0-50.0) U/L ALT (<41) U/L Alkaline Phosphatase (40-129) U/L Troponin T Cancelled (0-0.010) ng/mL NT-Pro-B Natriuret Pep (<450) pg/mL Total Protein (6.6-8.7) g/dL Albumin (4.0-5.0) g/dL Globulin (1.4-4.8) gm/dL Albumin/Globulin Ratio (1.1-1.8) Disposition Disposition: Transfer Clinical Impression: Acute exacerbation of COPD with asthma, Chest discomfort, Elevated troponin Renal failure (ARF), acute on chronic Qualifiers: Acute renal failure type: unspecified Chronic kidney disease stage: unspecified stage Qualified Code(s): N17.9 - Acute kidney failure, unspecified; N18.9 - Chronic kidney disease, unspecified; N18.9 - Chronic kidney disease, unspecified Transfer To: [facility] Reason For Transfer: pts request, pt scheduled for procedure at [facility] and 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
[2017-09-07] MEDS ORDERED: ASPIRIN 81 MG CHEWABLE TABLET PO ONE (23:38)
[2017-09-08 00:55] LABS: URINE APPEARANCE CLEAR; URINE BILIRUBIN NEGATIVE (NEGATIVE); URINE BLOOD NEGATIVE (NEGATIVE); URINE COLOR YELLOW; URINE GLUCOSE (UA) NEGATIVE (NEGATIVE); URINE KETONE NEGATIVE (NEGATIVE); URINE LEUKOCYTE ESTERASE NEGATIVE (NEGATIVE); URINE NITRITE NEGATIVE (NEGATIVE); URINE PROTEIN NEGATIVE (NEGATIVE); URINE UROBILINOGEN 0.2 E.U./dL (0.20 - 1.00)
[2017-09-08 01:12] LABS: CKMB 15.9 ng/mL (<6.73)
[2017-09-08 01:28] LABS: CKMB RELATIVE INDEX 3.1 % (0-4)
--- NOTE | 2017-09-08 08:01 | Emergency Department Record ---
History of Present Illness - General Chief Complaint: Shortness of breath Stated Complaint: DEYSI Time Seen by Provider: 09/07/17 21:15 Source: Patient Mode of Arrival: Ambulatory Limitations: No limitations - History of Present Illness Initial Comments: 77 yo male presents with shortness of breath and was seen last night in the ED He is currently waiting for a bed at [facility] for transfer as he was accepted for transfer to a step down bed. He is resting comfortably without shortness of breath He had an elevated Troponin at 0.89 and elevated BNP of 7070 He has increased BUN and CR from his baseline renal insufficiency He is scheduled for surgery on Friday at [facility] for his spine. 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 and is waiting for an approved bed at [facility] Complaint: Shortness of breath Onset/Timin -: Hour(s) Improves With: Upright position Known History Of: Congestive heart failure, COPD, DVT, Recurrent pneumonia Associated Symptoms: Chest pain, Cough - Related Data Home Medications Medication Instructions Recorded Confirmed Last Taken Fluticasone/Salmeterol [Advair 1 each IH BID 09/07/17 09/07/17 Unknown 250-50 Diskus] Enoxaparin Sodium [Lovenox] 40 mg SQ DAILY 09/08/17 09/08/17 Unknown Furosemide [Lasix] 20 mg PO DAILY 09/08/17 09/08/17 Unknown Allergies Allergy/AdvReac Type Severity Reaction Status Date / Time onion Allergy Intermediate NAUSEA Verified 01/30/16 14:13 Travel Screening - Travel/Exposure Within Last 30 Days Have you traveled within the last 30 days?: No Review of Systems Constitutional: Reports: As per HPI. Denies: Chills, Fever, Malaise, Night sweats, Weakness, Weight change Eyes: Reports: As per HPI. Denies: Eye discharge, Eye pain, Photophobia, Vision change ENT: Reports: As per HPI. Denies: Congestion, Dental pain, Ear pain, Epistaxis , Hearing loss, Throat pain Respiratory: Reports: As per HPI. Denies: Cough, Dyspnea, Hemoptysis, Stridor, Wheezes Cardiovascular: Reports: As per HPI. Denies: Arrhythmia, Chest pain, Dyspnea on exertion, Edema, Murmurs, Orthopnea, Palpitations, Paroxysmal nocturnal dyspnea, Rheumatic Fever, Syncope Endocrine: Reports: As per HPI. Denies: Fatigue, Heat or cold intolerance, Polydipsia, Polyuria Gastrointestinal: Reports: As per HPI. Denies: Abdominal pain, Constipation, Diarrhea, Hematemesis, Hematochezia, Melena, Nausea, Vomiting Genitourinary: Reports: As per HPI. Denies: Dysuria, Frequency, Hematuria, Incontinence, Retention, Testicular pain, Testicular mass, Urgency Musculoskeletal: Reports: As per HPI. Denies: Arthralgia, Back pain, Gout, Joint swelling, Myalgia, Neck pain Skin: Reports: As per HPI. Denies: Bruising, Change in color, Change in hair/ nails, Lesions, Pruritus, Rash Neurological: Reports: As per HPI. Denies: Abnormal gait, Confusion, Headache, Numbness, Paresthesias, Seizure, Tingling, Tremors, Vertigo, Weakness Psychiatric: Reports: As per HPI. Denies: Anxiety, Auditory hallucinations, Depression, Homicidal thoughts, Suicidal thoughts, Visual hallucinations Hematological/Lymphatic: Reports: As per HPI. Denies: Anemia, Blood Clots, Easy bleeding, Easy bruising, Swollen glands Past Medical History - SOCIAL HISTORY Smoking Status: Former smoker Alcohol Use: None Drug Use: None - RESPIRATORY Hx Respiratory Disorders: Yes Hx Pneumonia: Yes (1989, current 2016) - CARDIOVASCULAR Hx Cardio Disorders: Yes Hx Abnormal EKG: Yes Hx CHF: Yes Hx Deep Vein Thrombosis: Yes (20 years ago after being kicked by a cow, current rt ankle 01/2017) Hx Edema: Yes (bilat legs recent hospitalization) Hx Hypertension: Yes Hx Irregular Heartbeat: Yes (hx a fib had cardioversion 1990 & 01/2017) Hx Pacemaker/Defib: Yes (2014) Comment:: hospitalizations states cardiac arrest during past hospitalization - NEURO Hx Neuro Disorders: No Hx Seizures: No (denies) - GI Hx GI Disorders: Yes Hx Reflux: (denies reflux) Hx Wt Loss/Wt Gain: Yes (loss 20-30#) - Hx Genitourinary Disorders: No Hx Prostate Problems: No (pt states no but on flomax) - ENDOCRINE Hx Endocrine Disorders: Yes Hx Diabetes: Yes - MUSCULOSKELETAL Hx Musculoskeletal Disorders: Yes Hx Arthritis: Yes Hx Back Injury: Yes Hx Musculoskeletal Disease: Yes Comment:: chronic pain; hx septic hip in past - PSYCH Hx Psych Problems: No - HEMATOLOGY/ONCOLOGY Hx Hematology/Oncology Disorders: Yes Hx Anemia: Yes Hx Bruising: Yes Hx Cancer: Yes (skin) Hx Clotting Problems: Yes Hx Blood Transfusions: Yes (with hip surgery, and hematoma) Hx Blood Transfusion Reaction: No Family Medical History Any Significant Family History?: Yes Hx Cancer: Father, Mother Hx Dementia: Mother *Dementia Comment: mother alzheimers Physical Exam - General Limitations: No limitations Course Vital Signs 09/07/17 09/07/17 09/07/17 20:40 21:28 22:06 Temperature 98.1 F Pulse Rate 69 70 Pulse Rate [ 70 Machine Setter Automatic ] Respiratory 24 18 20 Rate Blood Pressure 119/71 Blood Pressure 120/75 [Left Arm] Pulse Ox 97 100 97 09/07/17 09/08/17 09/08/17 23:39 01:12 02:00 Temperature Pulse Rate Pulse Rate [ 73 73 75 Machine Setter Automatic ] Respiratory 16 16 14 Rate Blood Pressure Blood Pressure 122/81 106/62 115/70 [Left Arm] Pulse Ox 95 97 98 09/08/17 09/08/17 09/08/17 03:00 04:37 05:00 Temperature Pulse Rate Pulse Rate [ 76 70 69 Machine Setter Automatic ] Respiratory 12 16 12 Rate Blood Pressure Blood Pressure 106/68 109/76 110/69 [Left Arm] Pulse Ox 97 98 97 09/08/17 07:00 Temperature Pulse Rate Pulse Rate [ 74 Machine Setter Automatic ] Respiratory 16 Rate Blood Pressure Blood Pressure 110/65 [Left Arm] Pulse Ox 98 - Reevaluation(s) Reevaluation #1: I was updated by [facility] at [facility] The patient is accepted but waiting for a bed at [facility] is critical bed status [facility] relays that likely no bed will be available until afternoon as they await discharges. 09/08/17 08:01 09/08/17 08:04 The patient and family were updated on the status The patient is comfortable at this time on 2 liters NC. No Chest pain or shortness of breath on 2 liters NC The AM medications will be reviewed. 09/08/17 10:52 The repeat troponin remains indeterminately elevated but the trend is improved to 0.042 The patient remains asymptomatic Still awaiting [facility] for discharges with anticipated time noon to 2pm per [facility]. 09/08/17 11:57 Awaiting discharges at [facility] Patient being kept informed of delays No active symptoms currently 09/08/17 14:47 The most recent update from [facility] was that a room was assigned and STAT clean underway. The patient remains comfortable 09/08/17 14:54 Daily dose of Lovenox ordered 09/08/17 15:06 The bed was assigned by [facility] notified of clearance for transfer at this time The patient was informed and remains comfortable Medical Decision Making - Lab Data Result diagrams: 09/07/17 20:55 09/07/17 20:55 Lab Results 09/07/17 09/07/17 09/07/17 Range/Units 20:55 20:55 20:55 WBC 10.1 (4.2-12.2) K/uL RBC 4.12 L (4.40-5.70) M/uL Hgb 11.6 L (14.0-18.0) gm/dl Hct 36.2 L (42.0-52.0) % MCV 87.9 (81-97) fl MCH 28.1 (27-33) pg MCHC 32.0 (32-36) g/dl RDW 14.8 H (11.5-14.5) % Plt Count 259 (130-400) K/uL MPV 11.5 H (7.4-10.4) fl Gran % 74.8 (47-80) % Lymphocytes % 8.5 L (16-45) % Monocytes % 11.2 H (0-9) % Eosinophils % 5.2 (0-6) % Basophils % 0.3 (0-6) % D-Dimer 0.36 (0-0.59) mg/L FEU Sodium 133 L (136-145) mmol/L Potassium 3.7 (3.4-4.5) mmol/L Chloride 85 L (98-107) mmol/L Carbon Dioxide 33.0 H (22-29) mmol/L Anion Gap 15.0 (7-16) BUN 93 H (8-23) mg/dL Creatinine 2.6 H (0.7-1.2) mg/dL Estimated GFR 26 mL/min Random Glucose 172 H (74-109) mg/dL Calcium 9.1 (8.8-10.2) mg/dL Total Bilirubin 0.70 (0.2-1.0) mg/dL AST 60 H (10.0-50.0) U/L ALT 39 (<41) U/L Alkaline Phosphatase 93 (40-129) U/L Creatine Kinase (39-308) U/L CK-MB (CK-2) (<6.73) ng/mL CK-MB (CK-2) Rel Index (0-4) % Troponin T 0.086 H (0-0.010) ng/mL NT-Pro-B Natriuret Pep 7070.00 H (<450) pg/mL Total Protein 7.2 (6.6-8.7) g/dL Albumin 4.1 (4.0-5.0) g/dL Globulin 3.1 (1.4-4.8) gm/dL Albumin/Globulin Ratio 1.3 (1.1-1.8) Urine Color Urine Appearance Urine pH (5.0-8.0) Ur Specific Fords (1.002-1.030) Urine Protein (NEGATIVE) Urine Glucose (UA) (NEGATIVE) Urine Ketones (NEGATIVE) Urine Blood (NEGATIVE) Urine Nitrite (NEGATIVE) Urine Bilirubin (NEGATIVE) Urine Urobilinogen (0.20 - 1.00) E.U./dL Ur Leukocyte Esterase (NEGATIVE) 09/07/17 09/08/17 09/08/17 Range/Units 21:24 00:55 00:56 WBC (4.2-12.2) K/uL RBC (4.40-5.70) M/uL Hgb (14.0-18.0) gm/dl Hct (42.0-52.0) % MCV (81-97) fl MCH (27-33) pg MCHC (32-36) g/dl RDW (11.5-14.5) % Plt Count (130-400) K/uL MPV (7.4-10.4) fl Gran % (47-80) % Lymphocytes % (16-45) % Monocytes % (0-9) % Eosinophils % (0-6) % Basophils % (0-6) % D-Dimer (0-0.59) mg/L FEU Sodium (136-145) mmol/L Potassium (3.4-4.5) mmol/L Chloride (98-107) mmol/L Carbon Dioxide (22-29) mmol/L Anion Gap (7-16) BUN (8-23) mg/dL Creatinine (0.7-1.2) mg/dL Estimated GFR mL/min Random Glucose (74-109) mg/dL Calcium (8.8-10.2) mg/dL Total Bilirubin (0.2-1.0) mg/dL AST (10.0-50.0) U/L ALT (<41) U/L Alkaline Phosphatase (40-129) U/L Creatine Kinase 503 H (39-308) U/L CK-MB (CK-2) 15.9 H (<6.73) ng/mL CK-MB (CK-2) Rel Index 3.10 (0-4) % Troponin T Cancelled 0.067 H (0-0.010) ng/mL NT-Pro-B Natriuret Pep (<450) pg/mL Total Protein (6.6-8.7) g/dL Albumin (4.0-5.0) g/dL Globulin (1.4-4.8) gm/dL Albumin/Globulin Ratio (1.1-1.8) Urine Color Yellow Urine Appearance Clear Urine pH 6.0 (5.0-8.0) Ur Specific Fords <= 1.005 (1.002-1.030) Urine Protein Negative (NEGATIVE) Urine Glucose (UA) Negative (NEGATIVE) Urine Ketones Negative (NEGATIVE) Urine Blood Negative (NEGATIVE) Urine Nitrite Negative (NEGATIVE) Urine Bilirubin Negative (NEGATIVE) Urine Urobilinogen 0.2 (0.20 - 1.00) E.U./dL Ur Leukocyte Esterase Negative (NEGATIVE) Disposition Disposition: Transfer Clinical Impression: Acute exacerbation of COPD with asthma, Chest discomfort, Elevated troponin Renal failure (ARF), acute on chronic Qualifiers: Acute renal failure type: unspecified Chronic kidney disease stage: unspecified stage Qualified Code(s): N17.9 - Acute kidney failure, unspecified Disposition: Acute Care Hospital Transfer Transfer To: [facility] Reason For Transfer: No specialist at [facility] [place] for cardiology, nephrology Accepting Physician: Kiana Time Discussed w/Accepting Physician: 23:49 Condition: (2) Stable Forms: Patient Portal Access Time of Disposition: 11:59 Quality - Quality Measures Quality Measures: N/A - Blood Pressure Screening Does Patient Have Any of the Following: No Blood Pressure Classification: Normal BP Reading Systolic Measurement: 119 Diastolic Measurement: 71 Screening for High Blood Pressure: < Normal BP, F/U Not Required > [G1507]
[2017-09-08] MEDS ORDERED: METOPROLOL TART 50 MG TABLET PO ONE (08:10)
[2017-09-08] MEDS ORDERED: FUROSEMIDE IV 20MG/2ML VIAL IVP ONE (08:10)
[2017-09-08] MEDS ORDERED: POTASSIUM CHLORIDE 20 MEQ TABLET PO ONE (08:10)
--- NOTE | 2017-09-08 09:11 | RADIOLOGY REPORT ---
EXAM: CHEST, TWO VIEWS HISTORY: ACUTE SHORTNESS OF BREATH. TECHNIQUE: Two views of the chest were obtained. Comparison: Chest x-ray 07/14/17. FINDINGS: Left side AICD is present. The lungs are clear. The cardiac silhouette is top normal in size. Chronic elevation of the left hemidiaphragm. Osteopenia with compromised bone detail. Advanced disk disease at the thoracolumbar junction. IMPRESSION: NO ACUTE INTRATHORACIC PROCESS. JOB NUMBER: [id number] [facility]
[2017-09-08 10:37] LABS: CKMB 11.7 ng/mL (<6.73)
[2017-09-08 10:47] LABS: CKMB RELATIVE INDEX 3.3 % (0-4)
[2017-09-08] MEDS ORDERED: ENOXAPARIN 100 MG/ML SYR SQ ONE (13:49)
[2017-09-09] MEDS ORDERED: LEVOTHYROXINE SODIUM 150 MCG TABLET PO SCH (07:00)
== END 2017-09-08 15:41 | disposition short-term general hospital (02) ==
LOC: ER 20:38
DX: J44.1 Chronic obstructive pulmonary disease with (acute) exacerbation (principal); J45.901 Unspecified asthma with (acute) exacerbation; R07.89 Other chest pain; I13.0 Hypertensive heart and chronic kidney disease with heart failure and stage 1 through stage 4 chronic kidney disease, or unspecified chronic kidney disease; N18.9 Chronic kidney disease, unspecified; I50.9 Heart failure, unspecified; E11.22 Type 2 diabetes mellitus with diabetic chronic kidney disease; N17.9 Acute kidney failure, unspecified; Z79.4 Long term (current) use of insulin; Z95.0 Presence of cardiac pacemaker; Z79.01 Long term (current) use of anticoagulants; Z86.718 Personal history of other venous thrombosis and embolism; Z87.891 Personal history of nicotine dependence
CPT/HCPCS: 71020; 80053; 81003; 82550; 82553; 83880; 84484; 85025; 85379; 93005; 93010; 94640; 96372; 96374; 96375; 99285; J1650; J1940; J2930

== ENCOUNTER 2017-09-12 11:49 | Inpatient (IN) | payer MEDICARE, OTHER ==
[2017-09-15] MEDS: OXYCODONE/APAP 10MG-325MG TABLET PO PRN ×3 (15:22→20:51)
[2017-09-15] MEDS ORDERED: DIAZEPAM 5 MG TABLET PO PRN (16:01)
[2017-09-15] MEDS ORDERED: ALBUTEROL SULFATE (0.083%) 2.5 MG/3 ML NEB INH PRN (16:09)
[2017-09-15] MEDS ORDERED: CLOTRIMAZOLE/BETAMET 15 GM TUBE TOP PRN (16:13)
--- NOTE | 2017-09-15 16:32 | History & Physical ---
History of Present Illness - Date Date of Service for History & Physical: 09/15/17 - History of Present Illness Admitting Diagnosis: Deconditioning S/P cervical C2-3 laminectomy and bilateral foraminotomies History of Present Illness: 77 y/o male s/p C2-3 laminectomy and bilateral foraminotomies admitted for deconditioning. Past medical history includes CHF, PAF s/p CV, AICD for secondary prevention, CAD, DM, CKD, HLP, chornic pain pain with dilaudid pump. While hospitalized had cervical laminectomy perfomed 09/11/17. Prior to surgery was seen in ED on 09/08/17 for COPD exacerbation, JOAN/CKD and elevated CE, was cleared by cardiology for surgery. No noted post-op complications. Last BUN/Cr 43/1.33 on 09/15/17. WBC normal, hgb 11.2 (09/15/17). Blood sugars controlled. TSH noted to be low, synthroid dose lowered with recommendations to recheck in 4 -6 weeks. Lopressor dose decreaed as BP was low normal. Plan is to discharge home independently with assistance of daughter who is very involved in his care. He does have chronic stasis ulcers to BLE which his daughter maintains wound care. PCP: Dr Aleman Neurosurgery: Dr Sierra [facility] - Cognitive Patterns Orientation: Oriented x3 - Communication Preferred Language?: [place] [employer] Required: No Level of Education: High School Preferred Method of Learning: Seeing, Doing Comprehension Ability: No Impairment Able to Read: Yes Able to Write: Yes Select best description of speech pattern: Clear Speech Ability to express ideas and wants: Understood Understanding verbal content: Understands - Psychosocial Well-Being Usual Living Arrangement: Alone - Dental Status Unable to examine: No Broken or loosely fitting full or partial dentures: No No natural teeth or tooth fragment(s) (edentulous): No Abnormal mouth tissue (ulcers, masses, oral lesions, etc.): No Obvious or likely cavity or broken natural teeth: No Inflamed or bleeding gums or loose natural teeth: No Mouth/facial pain, discomfort or difficulty chewing: No - Nutrition Screening Poor oral intake > 1 week: No Unplanned weight loss in specified time frame: No Nutrition Support via tube feedings or parenteral nutrition: No Pressure Ulcer: No Significantly underweight define as BMI <18.5 kg/m2: No Albumin <2.5mg/dL: No Persistent nausea/vomiting/diarrhea >3 days: No Difficulty chewing/swallowing/mouth sores: No Admitting Diagnosis: No Nutrition Risk Score: Low Risk Past Medical History - SOCIAL HISTORY Smoking Status: Former smoker Alcohol Use: None - SURGICAL HISTORY Past Surgical History: pump trial with dilaudid implanted cath (permanent device in place). Back surgery X5, neck surgery, Hip & shoulder sx,Bunionectomy ,bilat right hip replacement, AICD, abscess rt thigh, septic hip, hematoma rt thigh, revision x2, evac of hematoma post rt hip;. lumbar rhizotomy 05/31/15. permanent pain pump 2015. C2-3 lminectomy 09/19 - RESPIRATORY Hx Respiratory Disorders: Yes Hx Pneumonia: Yes (1989, current 2016) - CARDIOVASCULAR Hx Cardio Disorders: Yes Hx Abnormal EKG: Yes Hx CHF: Yes Hx Deep Vein Thrombosis: Yes (20 years ago after being kicked by a cow, current rt ankle 01/2017) Hx Edema: Yes (bilat legs recent hospitalization) Hx Hypertension: Yes Hx Irregular Heartbeat: Yes (hx a fib had cardioversion 1990 & 01/2017) Hx Pacemaker/Defib: Yes (2014) Comment:: hospitalizations states cardiac arrest during past hospitalization - NEURO Hx Neuro Disorders: No Hx Seizures: No (denies) - GI Hx GI Disorders: Yes Hx Reflux: (denies reflux) Hx Wt Loss/Wt Gain: No - Hx Genitourinary Disorders: No Hx Prostate Problems: No (pt states no but on flomax) - ENDOCRINE Hx Endocrine Disorders: Yes Hx Diabetes: Yes - MUSCULOSKELETAL Hx Musculoskeletal Disorders: Yes Hx Arthritis: Yes Hx Back Injury: Yes Hx Musculoskeletal Disease: Yes Comment:: chronic pain; hx septic hip in past - PSYCH Hx Psych Problems: No - HEMATOLOGY/ONCOLOGY Hx Hematology/Oncology Disorders: Yes Hx Anemia: Yes Hx Bruising: Yes Hx Cancer: Yes (skin) Hx Clotting Problems: Yes Hx Blood Transfusions: Yes (with hip surgery, and hematoma) Hx Blood Transfusion Reaction: No Family Medical History Any Significant Family History?: Yes Hx Cancer: Father, Mother Hx Dementia: Mother *Dementia Comment: mother alzheimers H&P Meds/Allergies - Allergies Allergies: Allergies Allergy/AdvReac Type Severity Reaction Status Date / Time onion Allergy Intermediate NAUSEA Verified 01/30/16 14:13 - Active Medications Active Medications: Current Medications Albuterol Sulfate () 2.5 mg INH Q6H PRN PRN Reason: WHEEZING Amiodarone HCl (Pacerone) 200 mg PO DAILY [facility] Ascorbic Acid (Vitamin C) 1,000 mg PO BID [facility] Atorvastatin Calcium (Lipitor) 20 mg PO QHS [facility] Bumetanide (Bumex) 2 mg PO BIDDIUR [facility] Clotrimazole (Lotrisone) 0.5 gm TOP BID PRN PRN Reason: RASH Diazepam (Valium) 5 mg PO Q6H PRN PRN Reason: MUSCLE SPASM Enoxaparin Sodium (Lovenox) 40 mg SQ DAILY [facility] Stop: 09/25/17 10:01 Ferrous Sulfate (Iron) 325 mg PO DAILY [facility] Insulin Detemir (Levemir Flextouch) 6 unit SQ QHS [facility] Levothyroxine Sodium (Synthroid) 125 mcg PO DAILYTHY [facility] Magnesium Oxide (Mag Ox) 400 mg PO DAILY [facility] Metolazone (Zaroxolyn) 2.5 mg PO TuSa [facility] Metoprolol Tartrate (Lopressor) 25 mg PO BID [facility] Multivitamins/Minerals (Centrum) 1 tab PO DAILY [facility] Oxycodone/Acetaminophen (Percocet 10-325 Mg Tablet) 1 each PO Q4H PRN PRN Reason: Pain - Moderate (5-7) Last Admin: 09/15/17 15:22 Dose: 1 each Oxycodone/Acetaminophen (Percocet 10-325 Mg Tablet) 2 each PO Q4H PRN PRN Reason: Pain - Severe (8-10) Polyethylene Glycol (Miralax) 17 gm PO QHS [facility] Potassium Chloride (Klor-Con) 20 meq PO BID [facility] Ranitidine HCl (Zantac) 150 mg PO QHS [facility] Senna/Docusate Sodium (Senna Plus) 2 each PO QHS [facility] Tamsulosin HCl (Flomax) 0.4 mg PO DAILY [facility] Vitamin D (Vitamin D3) 5,000 unit PO DAILY [facility] Warfarin Sodium (Coumadin) 3 mg PO SuMoWeThFr [facility] Warfarin Sodium (Coumadin) 2 mg PO TuSa [facility] Physical Exam - Vital Signs Vital Signs: Vital Signs - Last 24 Hrs Temp Pulse Resp BP Pulse Ox 09/15/17 14:23 97 F L 74 18 121/73 99 - General General Appearance: Alert, Oriented x3, Cooperative, Moderate distress (due to pain) Limitations: Physical limitation (neck pain s/p cervica lami) - Head Head exam: Atraumatic, Normocephalic, Normal inspection - Eye Eye exam: Normal appearance, PERRL - ENT ENT exam: Mucous membranes moist - Neck Neck exam: Tenderness, Other (cervical incision well approx, sutures intact. No evidence hematoma or infection) - Respiratory Respiratory exam: Normal lung sounds bilaterally - Cardiovascular Cardiovascular Exam: Regular rate, Normal rhythm, Normal heart sounds Peripheral Pulses: 2+: Dorsalis Pedis (R), Dorsalis Pedis (L), 3+: Radial (R), Radial (L) - GI/Abdominal GI/Abdominal exam: Soft, Normal bowel sounds. negative: Tenderness - Rectal Rectal exam: Deferred - exam: Deferred - Extremities Extremities exam: Other (bilat LE dressings in place for chronic venous stasis ulcers). negative: Pedal edema, Tenderness - Back Back exam: Reports: Normal inspection - Neurological Neurological exam: Alert, CN II-XII intact, Oriented X3 - Psychiatric Psychiatric exam: Normal affect, Normal mood - Skin Skin exam: Other (incision cervical spine) Discharge Potential - Discharge Needs Community Services Used Prior to Admission: Physical Therapy Patient Discharge Plan Description: Return Home Plan - Swing Bed Certification Initial Certification Due: 09/15/17 14 Day Re-Cert Due: 09/29/17 44 Day Re-Cert Due: 10/29/17 74 Day Re-Cert Due: 11/28/17 - Detailed Diagnosis and Plan (1) Physical deconditioning Current Visit: Yes Status: Acute Base Code: R53.81 - OTHER MALAISE Comment : s/p cervical laminectomy wtih bilateral foraminotomies C2-3 - follow up with neurosurgery as scheduled - PT/OT - pain management with percocet 09/15/171824 - follow up wth PCP 2 weeks after discharge (2) Degenerative disc disease, cervical Current Visit: Yes Status: Acute Base Code: M50.30 - OTHER CERVICAL DISC DEGENERATION, UNSP CERVICAL REGION Comment: s/p cervical laminectomy with bilateral foraminotomies C2-3 on 09/11/17 09/15/171825 (3) Acute exacerbation of COPD with asthma Current Visit: No Status: Acute Base Code: J44.1 - CHRONIC OBSTRUCTIVE PULMONARY DISEASE W (ACUTE) EXACERBATION; J45.901 - UNSPECIFIED ASTHMA WITH ( ACUTE) EXACERBATION Comment: Acute exacerbation prior to surgery. COPD pathway followed, CXR negative for acute process. Exacerbation resolved - continue COPD med regimen as at home 09/15/17 1826 (4) CRF (chronic renal failure) Current Visit: No Status: Acute Qualifiers: Chronic kidney disease stage: unspecified stage Qualified Code(s): N18.9 - Chronic kidney disease, unspecified Base Code: N18.9 - CHRONIC KIDNEY DISEASE, UNSPECIFIED Comment: Stable at time of discharge from [facility]. - repeat CMP in 48 hours (5) Hypothyroidism Current Visit: Yes Status: Acute Base Code: E03.9 - HYPOTHYROIDISM, UNSPECIFIED Comment: TSH low during hospitalization at [facility]- result not available at time of dication. Synthroid noted to have been decreased to 125mcg daily - repeat TSH in 4-6 weeks (6) Hypertension Current Visit: No Status: Acute Base Code: I10 - ESSENTIAL (PRIMARY) HYPERTENSION Comment: Chronic history of, noted low end of normal readings while hospitalized. Lopressor dose decreased to 25mg BID. BP 98/60 at time of discharge - monitor twice daily - adjust dose as needed (7) Diabetes Current Visit: No Status: Chronic Qualifiers: Diabetes mellitus type: type 2 Diabetes mellitus complication status: with hyperglycemia Diabetes mellitus long lines operator insulin use: with long lines operator use Qualified Code(s): E11.65 - Type 2 diabetes mellitus with hyperglycemia; Z79.4 - correction (current) use of insulin Base Code: E11.9 - TYPE 2 DIABETES MELLITUS WITHOUT COMPLICATIONS Comment: Patient's sugar is doing well on current insulin regimen of Levemir 6units SQ QHS. - accu checks BID - diabetic diet 09/15/17 1850 (8) DVT prophylaxis Current Visit: No Status: Acute Base Code: [id number] - Comment: Coumadin management for DVt prophylaxis and chronic anticoagulation therapy for history of PAF s/p CV - per neurosurgery recommendations will continue Lovenox x 5 days then will bridge to coumadin until INR therapeutic - pharmacy to dose - serial INR when coumadin resumes 09/15/17 1830
[2017-09-15] MEDS: BUMETANIDE 1 MG TABLET PO SCH (16:35)
[2017-09-15] MEDS: POTASSIUM CHLORIDE 20 MEQ TABLET PO SCH (21:17)
[2017-09-15] MEDS: METOPROLOL TART 25 MG TABLET PO SCH (21:17)
[2017-09-15] MEDS: ATORVASTATIN 20 MG TABLET PO SCH (21:17)
[2017-09-15] MEDS: SENNOSIDES/DOCUSATE SODIUM UD CAPSULE PO SCH (21:17)
[2017-09-15] MEDS: RANITIDINE HCL 150 MG TABLET PO SCH (21:18)
[2017-09-15] MEDS: POLYETHYLENE GLY 17 GM PACKET PO SCH (21:18)
[2017-09-15] MEDS: ASCORBIC ACID 500 MG TAB PO SCH (21:18)
[2017-09-15] MEDS: LEVEMIR FLEXTOUCH 100 UNIT/ML INSULIN PEN SQ SCH (21:19)
[2017-09-16] MEDS: OXYCODONE/APAP 10MG-325MG TABLET PO PRN ×3 (01:02→13:30)
[2017-09-16] MEDS: LEVOTHYROXINE SODIUM 125 MCG TABLET PO SCH (06:45)
[2017-09-16] MEDS: BUMETANIDE 1 MG TABLET PO SCH ×2 (09:52→18:41)
[2017-09-16] MEDS: FERROUS SULFATE 325 MG TAB PO SCH (09:53)
[2017-09-16] MEDS: TAMSULOSIN HCL 0.4 MG CAP.ER.24H PO SCH (09:53)
[2017-09-16] MEDS: MULTIVITAMINS/MINERALS TABLET PO SCH (09:53)
[2017-09-16] MEDS: POTASSIUM CHLORIDE 20 MEQ TABLET PO SCH ×2 (09:54→21:29)
[2017-09-16] MEDS: ENOXAPARIN 40 MG/0.4 ML SYR SQ SCH (09:55)
[2017-09-16] MEDS: METOPROLOL TART 25 MG TABLET PO SCH ×2 (09:55→21:29)
[2017-09-16] MEDS: ASCORBIC ACID 500 MG TAB PO SCH ×2 (09:57→21:29)
[2017-09-16] MEDS: AMIODARONE HCL 200 MG TABLET PO SCH (09:57)
[2017-09-16] MEDS: MAGNESIUM OXIDE 400 MG TABLET PO SCH (09:57)
[2017-09-16] MEDS: CHOLECALCIFEROL 1,000 UNIT TABLET PO SCH (09:58)
[2017-09-16] MEDS ORDERED: METOLAZONE 2.5 MG TABLET PO SCH (10:00)
[2017-09-16] MEDS: BREO (FLUTICASONE/VILANTEROL) 100MCG/25MCG INHALER INH SCH (10:00)
--- NOTE | 2017-09-16 11:09 | Rehab Evaluation ---
Patient Information - Patient Information Diagnosis: Deconditioning s/p cervical Laminectomy Ordered Treatment: PT Evaluate and Treat Status: Initial Evaluation Surgery: Yes (Laminectomy C2/C3.) Date of Surgery: 09/11/17 Past Medical/Surgical Hx: PAST MEDICAL/SURGICAL HISTORY Past Surgical History pump trial with dilaudid implanted cath ( permanent device in place) Back surgery X5, neck surgery, Hip & shoulder sx ,Bunionectomy,bilat right hip replacement, AICD , abscess rt thigh, septic hip, hematoma rt thigh , revision x2, evac of hematoma post rt hip; lumbar rhizotomy 05/31/15. permanent pain pump 2015 C2-3 lminectomy 09/19 PMH - Respiratory Hx Respiratory Disorders Yes Hx Pneumonia Yes: 1989, current 2016 Hx of SOB Yes: occass PMH - Cardiovascular Hx Cardiovascular Disorders Yes Hx Abnormal EKG Yes Hx Congestive Heart Failure Yes Hx Deep Vein Thrombosis Yes: 20 years ago after being kicked by a cow, current rt ankle 01/2017 Hx Edema Yes: bilat legs recent hospitalization Hx Hypertension Yes Hx Irregular Heartbeat Yes: hx a fib had cardioversion 1990 & 01/2017 Hx Pacemaker/Defibrillator Yes: 2014 Comment: hospitalizations states cardiac arrest during past hospitalization 07/18 PMH - Neuro Hx Neurological Disorders No Hx Neuropathy Yes: rt hand Hx Seizures No: denies PMH - GI Hx Gastrointestinal Disorders Yes Hx Gastroesophageal Reflux denies reflux Hx Weight Loss/Weight Gain No PMH - Hx Genitourinary Disorders No Hx Bladder Problem Yes: retention Hx Prostate Problems No: pt states no but on flomax Hx Urinary Tract Infection Yes PMH - Endocrine Hx Endocrine Disorders Yes Hx Diabetes Yes Hx Thyroid Disease Yes Hx of NIDDM Yes Hx of IDDM Yes Comment: checks blood sugars bid (100-140)/ulcers on feet due to poor circulation PMH - Musculoskeletal Hx Musculoskeletal Disorders Yes Hx Arthritis Yes Hx Back Injury Yes Hx Musculoskeletal Disease Yes Comment: chronic pain; hx septic hip in past PMH - Psych Hx Psychiatric Problems No PMH - Hematology/Oncology Hx Hematology/Oncology Yes Disorders Hx Anemia Yes Hx Bruising Yes Hx Cancer Yes: skin Hx Clotting Problems Yes Hx Blood Transfusion Reaction No Comment: pt to bridge with Lovenox 4 days preop Premorbid Status: Detail (Prior to his recent surgery the patient was ambulatory with two canes.) Social History: Detail (The patient lives in a one story home with 3 steps at the enterance and one handrail. The patient has two bathrooms, one with a shower stall and elevated toilet seat with grab bars and one with a tub/shower combination and standard toilet with grab bars.) Precautions: [place], [place], Other (Contact isolation) - Time With Patient Total Time Spent With Patient (Min): 30 Treatment Procedures: Detail (Initial Evaluation) Subjective Information - Subjective Information Per Patient (The patient was seated with eyes closed in recliner when PT arrived and bilateral scapular elevation, gripping arm rests with both hands. The patient was slow to respond to all commands.) Objective Data - Pain Pain Present: Yes Pain Intensity: 10 (Cervical) Pain Scale Used: Numeric (1 - 10) - Mental Status Patient Orientation: Oriented x3 (The patient was slow to respond and lethargic throughout treatment. The patient consistently followed simple commands.) - Visual Perception Other (Patient did not make eye contact with Therapists and often closed his eyes.) - ROM Not within normal limits (The patient experienced severe increase in pain with cervical AROM. The patient achieved 5 degrees of L cervical rotation and no R rotation. Further AROM testing was deferred.), Other (The patient's hip AAROM was not tested. Bilateral knee and ankle AROM was WNL.) - Strength/Tone Not within normal limits (LE strength: hip flexors R 3-/5, L 4/5, hip abductors bilaterally 3+/5, bilateral hip adductors 4-/5, hip extensor right 3-/5, L 3/5, rotators were not tested, knee flexors L 4+/5, R 4/5, quads R 4-/5, L 4+/5, ankle musculature 4+/5. Pain was noted with resisted R knee extension and active R hip flexion.) - Bed Mobility Needs Assist (Not assessed.) - Transfers Needs Assist (Sit to stand : minimal PA of 2, stand to sit supervision for safety.) - Balance Balance Sitting: Good Balance Standing: Fair (The patient required walker for support.) - Gait Detail (The patient ambulated with wheeled walker with CG of one for safety a distance of 35 feet x 1. The patient's gait pattern was characterized by decreased stride length and shuffling steps at a slow speed.) - ADL's/IADL's Detail Therapy Assessment - Therapy Assessment Detail (The patient requires assistance with mobility and transfers. All patient's movements are slow and guarded. The patient's pain level appears to be effecting his mobility and ability to participate in Rehab. Feel the patient will progress well once pain level is controlled.) Problem List - Problem List Physical Therapy Problem List: Detail (1) Level 10 cervical pain 2) Decreased LE strength 3) Assistance with transfers and ambulation 4) Guarded posture due to pain and decreased cervical AROM) Goals - Goals Physical Therapy Goals: 1) Assess bed mobility. 2)The patient will be independent with all transfers and bed mobility. 3) Independent ambulation with appropriate assistive device distances of 150 feet plus on levels. 4) Independent ambulation on stairs. 5) Increase LE strength 1/3 muscle grade in weakened muscle groups. 6) Increase cervical AROM by 10 to 15 degrees within cervical surgery precautions. 7) Decrease pain level to 5-6 using 0 to 10 pain scale to allow the patient to acheive bed mobility, transfers and ambulation independently. Prognosis - Prognosis Moderate Plan - Plan Physical Therapy Plan: PT 1-2 times a day for gait training, transfer training, bed mobility, LE strengthening exercises and balance exercises, cervical AROM exercises as tolerated, Pain management techiniques as needed including modalities and manual therapy.
--- NOTE | 2017-09-16 15:13 | Rehab Evaluation ---
Patient Information - Patient Information Diagnosis: Deconditioning s/p cervical 2-3 Laminectomy and ozzy foraminotomies Ordered Treatment: OT Evaluate and Treat Status: Initial Evaluation Surgery: Yes (Laminectomy C2/C3.) Date of Surgery: 09/11/17 Past Medical/Surgical Hx: PAST MEDICAL/SURGICAL HISTORY Past Surgical History pump trial with dilaudid implanted cath ( permanent device in place) Back surgery X5, neck surgery, Hip & shoulder sx ,Bunionectomy,bilat right hip replacement, AICD , abscess rt thigh, septic hip, hematoma rt thigh , revision x2, evac of hematoma post rt hip; lumbar rhizotomy 05/31/15. permanent pain pump 2015 C2-3 lminectomy 09/19 PMH - Respiratory Hx Respiratory Disorders Yes Hx Pneumonia Yes: 1989, current 2016 Hx of SOB Yes: occass PMH - Cardiovascular Hx Cardiovascular Disorders Yes Hx Abnormal EKG Yes Hx Congestive Heart Failure Yes Hx Deep Vein Thrombosis Yes: 20 years ago after being kicked by a cow, current rt ankle 01/2017 Hx Edema Yes: bilat legs recent hospitalization Hx Hypertension Yes Hx Irregular Heartbeat Yes: hx a fib had cardioversion 1990 & 01/2017 Hx Pacemaker/Defibrillator Yes: 2014 Comment: hospitalizations states cardiac arrest during past hospitalization 07/18 PMH - Neuro Hx Neurological Disorders No Hx Neuropathy Yes: rt hand Hx Seizures No: denies PMH - GI Hx Gastrointestinal Disorders Yes Hx Gastroesophageal Reflux denies reflux Hx Weight Loss/Weight Gain No PMH - Hx Genitourinary Disorders No Hx Bladder Problem Yes: retention Hx Prostate Problems No: pt states no but on flomax Hx Urinary Tract Infection Yes PMH - Endocrine Hx Endocrine Disorders Yes Hx Diabetes Yes Hx Thyroid Disease Yes Hx of NIDDM Yes Hx of IDDM Yes Comment: checks blood sugars bid (100-140)/ulcers on feet due to poor circulation PMH - Musculoskeletal Hx Musculoskeletal Disorders Yes Hx Arthritis Yes Hx Back Injury Yes Hx Musculoskeletal Disease Yes Comment: chronic pain; hx septic hip in past PMH - Psych Hx Psychiatric Problems No PMH - Hematology/Oncology Hx Hematology/Oncology Yes Disorders Hx Anemia Yes Hx Bruising Yes Hx Cancer Yes: skin Hx Clotting Problems Yes Hx Blood Transfusion Reaction No Comment: pt to bridge with Lovenox 4 days preop Premorbid Status: Detail (Prior to his recent surgery the patient was ambulatory with two canes.) Social History: Detail (The patient lives alone in a one story home with 3 steps at the entrance and one handrail. The patient has two bathrooms, one with a shower stall and elevated toilet seat with grab bars and one with a tub/ shower combination and standard toilet with grab bars.) Precautions: [place], [place], Other (Contact isolation, no lifting greater than 10#) - Time With Patient Total Time Spent With Patient (Min): 40 Treatment Procedures: Detail (OT eval low complexity) Subjective Information - Subjective Information Per Patient Objective Data - Pain Pain Present: Yes (Pt reports 10/10 pain in neck.) - Mental Status Patient Orientation: Oriented x3 (Pt very lethargic and sleepy throughout evaluation. He was able to follow all commands appropriately.) - Visual Perception Appears within normal limits for therapeutic activities (Appears WNL although pt was very sleepy and he was not able to make eye contact with OT.) - ROM Not within normal limits (Ozzy shoulder flexion limited to approx. 90 degrees active motion due to severe neck pain. Ozzy elbow, wrist and hand AROM WNL.) - Strength/Tone Not within normal limits (Ozzy UE strength not formally tested due to surgical precautions. Asbestos Abatement Technician strength grossly WNL.) - Coordination Appears within normal limits for therapeutic activities - Transfers Needs Assist (Min assist x 2 for sit to stand from recliner chair.) - Balance Balance Sitting: Good Balance Standing: Fair - Sensation Intact - Gait Detail (Pt able to ambulate a short distance with 2 wheeled walker and CG assist.) - ADL's/IADL's Detail (Not formally assessed, pt reports he was able to complete dressing Indly.) Therapy Assessment - Therapy Assessment Detail (Pt presents with significant pain and decreased endurance which is impairing his safety and Ind with self care activities and mobility.) Problem List - Problem List Physical Therapy Problem List: Detail (1) Level 10 cervical pain 2) Decreased LE strength 3) Assistance with transfers and ambulation 4) Guarded posture due to pain and decreased cervical AROM) Occupational Therapy Problem List: Detail (1. Decreased Ind with self care activities. 2. Decreased Ind with functional mobility needed for safe ADLs. 3. Decreased UE strength and ROM as well as overall endurance needed for safe ADLs. 4. Significant pain limiting functional Ind.) Goals - Goals Physical Therapy Goals: 1) Assess bed mobility. 2)The patient will be independent with all transfers and bed mobility. 3) Independent ambulation with appropriate assistive device distances of 150 feet plus on levels. 4) Independent ambulation on stairs. 5) Increase LE strength 1/3 muscle grade in weakened muscle groups. 6) Increase cervical AROM by 10 to 15 degrees within cervical surgery precautions. 7) Decrease pain level to 5-6 using 0 to 10 pain scale to allow the patient to acheive bed mobility, transfers and ambulation independently. Occupational Therapy Goals: 1. Assess safety and Ind with total body dressing and showering. 2. Decrease pain and improve endurance needed for safe and Ind ADLs and functional mobility 3. Increase ozzy UE AROM and strength to allow safe and Ind function. Prognosis - Prognosis Good Plan - Plan Physical Therapy Plan: PT 1-2 times a day for gait training, transfer training, bed mobility, LE strengthening exercises and balance exercises, cervical AROM exercises as tolerated, Pain management techiniques as needed including modalities and manual therapy. Occupational Therapy Plan: OT 2-4 times per week to address self cares, functional mobility, UE function and overall endurance needed to allow safe and Ind return home.
[2017-09-16 18:06] LABS: HEMATOCRIT 42.9 % (42.0-52.0); HEMOGLOBIN 13.2 gm/dl (14.0-18.0); MEAN CELL VOLUME 91.5 fl (81-97); MEAN CORPUSCULAR HEMOGLOBIN 28.1 pg (27-33); MEAN CORPUSCULAR HGB CONC 30.8 g/dl (32-36); PLATELET COUNT 199 K/uL (130-400); RED BLOOD COUNT 4.69 M/uL (4.40-5.70); RED CELL DISTRIBUTION WIDTH 15.8 % (11.5-14.5)
[2017-09-16 18:12] LABS: WHITE BLOOD COUNT W/O DIFF 28.8 K/uL (4.2-12.2)
[2017-09-16 18:26] LABS: ALB/GLOB RATIO 1.3 (1.1-1.8); BILIRUBIN,TOTAL 1.3 mg/dL (0.2-1.0); CREATININE 1.3 mg/dL (0.7-1.2); TOTAL PROTEIN 7.1 g/dL (6.6-8.7)
[2017-09-16 18:32] LABS: ARTERIAL BLOOD GAS BASE EXCESS 12.1 mmol/L (-2 - 3); ARTERIAL BLOOD GAS PCO2 48.4 mmHg (35-48); CARBOXYHEMOGLOBIN 2.3 % (0-1.5); METHEMOGLOBIN 0.5 % (0.0-1.5); O2 HEMOGLOBIN 94.2 % vol (94-99); TOTAL HEMOGLOBIN 12.5 g/dl (14-18)
[2017-09-16 18:34] LABS: ALLEN TEST PASS
[2017-09-16] MEDS ORDERED: 0.9 % SODIUM CHLORIDE 1000ML 1,000 ML IV PRN ×2 (19:11→20:42)
[2017-09-16 19:19] LABS: THYROID STIMULATING HORMONE 1.34 uIU/mL (0.270-4.20)
[2017-09-16 20:02] LABS: LACTIC ACID 1.7 mmol/L (0.5-2.2)
[2017-09-16] MEDS: POLYETHYLENE GLY 17 GM PACKET PO SCH (21:26)
[2017-09-16] MEDS: ATORVASTATIN 20 MG TABLET PO SCH (21:29)
[2017-09-16] MEDS: RANITIDINE HCL 150 MG TABLET PO SCH (21:29)
[2017-09-16] MEDS: SENNOSIDES/DOCUSATE SODIUM UD CAPSULE PO SCH (21:29)
[2017-09-16] MEDS: CEFTRIAXONE SODIUM 1 GM in 0.9 % SODIUM CHLORIDE 100ML 100 ML IVPB SCH (21:30)
[2017-09-16] MEDS: LEVEMIR FLEXTOUCH 100 UNIT/ML INSULIN PEN SQ SCH (21:35)
[2017-09-17] MEDS: LEVOTHYROXINE SODIUM 125 MCG TABLET PO SCH (06:01)
[2017-09-17 06:51] LABS: URINE APPEARANCE CLEAR; URINE BILIRUBIN NEGATIVE (NEGATIVE); URINE BLOOD NEGATIVE (NEGATIVE); URINE COLOR YELLOW; URINE GLUCOSE (UA) NEGATIVE (NEGATIVE); URINE KETONE NEGATIVE (NEGATIVE); URINE LEUKOCYTE ESTERASE NEGATIVE (NEGATIVE); URINE NITRITE NEGATIVE (NEGATIVE); URINE PROTEIN NEGATIVE (NEGATIVE); URINE UROBILINOGEN 0.2 E.U./dL (0.20 - 1.00)
[2017-09-17 07:36] LABS: HEMATOCRIT 41.2 % (42.0-52.0); HEMOGLOBIN 12.7 gm/dl (14.0-18.0); MEAN CORPUSCULAR HEMOGLOBIN 28.3 pg (27-33); MEAN CORPUSCULAR HGB CONC 30.8 g/dl (32-36); MEAN PLATELET VOLUME 11.5 fl (7.4-10.4); PLATELET COUNT 185 K/uL (130-400); RED BLOOD COUNT 4.48 M/uL (4.40-5.70); RED CELL DISTRIBUTION WIDTH 16.1 % (11.5-14.5)
[2017-09-17 07:45] LABS: WHITE BLOOD COUNT W/O DIFF 24.7 K/uL (4.2-12.2)
[2017-09-17] MEDS ORDERED: ACETAMINOPHEN 500 MG TABLET PO PRN (08:11)
[2017-09-17 08:26] LABS: ALB/GLOB RATIO 1.2 (1.1-1.8); ALBUMIN 3.7 g/dL (4.0-5.0); BILIRUBIN,TOTAL 1.3 mg/dL (0.2-1.0); CREATININE 1.4 mg/dL (0.7-1.2); TOTAL PROTEIN 6.8 g/dL (6.6-8.7)
[2017-09-17] MEDS: CEFTRIAXONE SODIUM 1 GM in 0.9 % SODIUM CHLORIDE 100ML 100 ML IVPB SCH (08:50)
[2017-09-17] MEDS ORDERED: LEVOFLOXACIN/D5W 750 MG/150 ML BAG IVPB SCH (09:00)
[2017-09-17] MEDS: MULTIVITAMINS/MINERALS TABLET PO SCH (10:13)
[2017-09-17] MEDS: AMIODARONE HCL 200 MG TABLET PO SCH (10:14)
[2017-09-17] MEDS: ENOXAPARIN 40 MG/0.4 ML SYR SQ SCH (10:14)
[2017-09-17] MEDS: BUMETANIDE 1 MG TABLET PO SCH (10:14)
[2017-09-17] MEDS: CHOLECALCIFEROL 1,000 UNIT TABLET PO SCH (10:14)
[2017-09-17] MEDS: TAMSULOSIN HCL 0.4 MG CAP.ER.24H PO SCH (10:15)
[2017-09-17] MEDS: MAGNESIUM OXIDE 400 MG TABLET PO SCH (10:15)
[2017-09-17] MEDS: FERROUS SULFATE 325 MG TAB PO SCH (10:15)
[2017-09-17] MEDS: ASCORBIC ACID 500 MG TAB PO SCH (10:16)
[2017-09-17] MEDS: POTASSIUM CHLORIDE 20 MEQ TABLET PO SCH (10:20)
[2017-09-17] MEDS: METOPROLOL TART 25 MG TABLET PO SCH (10:20)
[2017-09-17] MEDS ORDERED: MEROPENEM 1 GM in 0.9% SODIUM CHLORIDE 50ML 50 ML IVPB SCH (11:00)
[2017-09-17] MEDS: BREO (FLUTICASONE/VILANTEROL) 100MCG/25MCG INHALER INH SCH (11:04)
--- NOTE | 2017-09-17 11:17 | Rehab Discharge Summary ---
Patient Information - Patient Information Diagnosis: Deconditioning s/p cervical 2-3 Laminectomy and doroteo foraminotomies Ordered Treatment: OT Evaluate and Treat Surgery: Yes (Laminectomy C2/C3.) Date of Surgery: 09/11/17 Past Medical/Surgical Hx: PAST MEDICAL/SURGICAL HISTORY Past Surgical History pump trial with dilaudid implanted cath ( permanent device in place) Back surgery X5, neck surgery, Hip & shoulder sx ,Bunionectomy,bilat right hip replacement, AICD , abscess rt thigh, septic hip, hematoma rt thigh , revision x2, evac of hematoma post rt hip; lumbar rhizotomy 05/31/15. permanent pain pump 2015 C2-3 lminectomy 09/19 PMH - Respiratory Hx Respiratory Disorders Yes Hx Pneumonia Yes: 1989, current 2016 Hx of SOB Yes: occass PMH - Cardiovascular Hx Cardiovascular Disorders Yes Hx Abnormal EKG Yes Hx Congestive Heart Failure Yes Hx Deep Vein Thrombosis Yes: 20 years ago after being kicked by a cow, current rt ankle 01/2017 Hx Edema Yes: bilat legs recent hospitalization Hx Hypertension Yes Hx Irregular Heartbeat Yes: hx a fib had cardioversion 1990 & 01/2017 Hx Pacemaker/Defibrillator Yes: 2014 Comment: hospitalizations states cardiac arrest during past hospitalization 07/18 PMH - Neuro Hx Neurological Disorders No Hx Neuropathy Yes: rt hand Hx Seizures No: denies PMH - GI Hx Gastrointestinal Disorders Yes Hx Gastroesophageal Reflux denies reflux Hx Weight Loss/Weight Gain No PMH - Hx Genitourinary Disorders No Hx Bladder Problem Yes: retention Hx Prostate Problems No: pt states no but on flomax Hx Urinary Tract Infection Yes PMH - Endocrine Hx Endocrine Disorders Yes Hx Diabetes Yes Hx Thyroid Disease Yes Hx of NIDDM Yes Hx of IDDM Yes Comment: checks blood sugars bid (100-140)/ulcers on feet due to poor circulation PMH - Musculoskeletal Hx Musculoskeletal Disorders Yes Hx Arthritis Yes Hx Back Injury Yes Hx Musculoskeletal Disease Yes Comment: chronic pain; hx septic hip in past PMH - Psych Hx Psychiatric Problems No PMH - Hematology/Oncology Hx Hematology/Oncology Yes Disorders Hx Anemia Yes Hx Bruising Yes Hx Cancer Yes: skin Hx Clotting Problems Yes Hx Blood Transfusion Reaction No Comment: pt to bridge with Lovenox 4 days preop Premorbid Status: Detail (Prior to his recent surgery the patient was ambulatory with two canes.) Social History: Detail (The patient lives alone in a one story home with 3 steps at the entrance and one handrail. The patient has two bathrooms, one with a shower stall and elevated toilet seat with grab bars and one with a tub/ shower combination and standard toilet with grab bars.) Precautions: [place], Fall, Other (Contact isolation, no lifting greater than 10#) Subjective Information - Subjective Information Per Patient Objective Data - Pain Pain Present: Yes - Mental Status Patient Orientation: Oriented x3 - Visual Perception Appears within normal limits for therapeutic activities (Unchanged from eval) - ROM Within normal limits (Unchanged from eval) - Strength/Tone Within normal limits (Unchanged from eval) Therapy Assessment - Therapy Assessment Detail (Pt only seen for initial evaluation on 09/16/17. No updated information available.) Problem List - Problem List Physical Therapy Problem List: Detail (1) Level 10 cervical pain 2) Decreased LE strength 3) Assistance with transfers and ambulation 4) Guarded posture due to pain and decreased cervical AROM) Occupational Therapy Problem List: Detail (1. Decreased Ind with self care activities. 2. Decreased Ind with functional mobility needed for safe ADLs. 3. Decreased UE strength and ROM as well as overall endurance needed for safe ADLs. 4. Significant pain limiting functional Ind.) Goals - Goals Physical Therapy Goals: 1) Assess bed mobility. 2)The patient will be independent with all transfers and bed mobility. 3) Independent ambulation with appropriate assistive device distances of 150 feet plus on levels. 4) Independent ambulation on stairs. 5) Increase LE strength 1/3 muscle grade in weakened muscle groups. 6) Increase cervical AROM by 10 to 15 degrees within cervical surgery precautions. 7) Decrease pain level to 5-6 using 0 to 10 pain scale to allow the patient to acheive bed mobility, transfers and ambulation independently. Occupational Therapy Goals: Not Met: 1. Assess safety and Ind with total body dressing and showering. 2. Decrease pain and improve endurance needed for safe and Ind ADLs and functional mobility 3. Increase doroteo UE AROM and strength to allow safe and Ind function. Plan - Plan Physical Therapy Plan: PT 1-2 times a day for gait training, transfer training, bed mobility, LE strengthening exercises and balance exercises, cervical AROM exercises as tolerated, Pain management techiniques as needed including modalities and manual therapy. Occupational Therapy Plan: Pt discharged from swing bed to inpatient status. Will await further orders.
--- NOTE | 2017-09-17 11:18 | Rehab Discharge Summary ---
Patient Information - Patient Information Diagnosis: Deconditioning s/p cervical 2-3 Laminectomy and doroteo foraminotomies Ordered Treatment: PT Evaluate and Treat Surgery: Yes (Laminectomy C2/C3.) Date of Surgery: 09/11/17 Past Medical/Surgical Hx: PAST MEDICAL/SURGICAL HISTORY Past Surgical History pump trial with dilaudid implanted cath ( permanent device in place) Back surgery X5, neck surgery, Hip & shoulder sx ,Bunionectomy,bilat right hip replacement, AICD , abscess rt thigh, septic hip, hematoma rt thigh , revision x2, evac of hematoma post rt hip; lumbar rhizotomy 05/31/15. permanent pain pump 2015 C2-3 lminectomy 09/19 PMH - Respiratory Hx Respiratory Disorders Yes Hx Pneumonia Yes: 1989, current 2016 Hx of SOB Yes: occass PMH - Cardiovascular Hx Cardiovascular Disorders Yes Hx Abnormal EKG Yes Hx Congestive Heart Failure Yes Hx Deep Vein Thrombosis Yes: 20 years ago after being kicked by a cow, current rt ankle 01/2017 Hx Edema Yes: bilat legs recent hospitalization Hx Hypertension Yes Hx Irregular Heartbeat Yes: hx a fib had cardioversion 1990 & 01/2017 Hx Pacemaker/Defibrillator Yes: 2014 Comment: hospitalizations states cardiac arrest during past hospitalization 07/18 PMH - Neuro Hx Neurological Disorders No Hx Neuropathy Yes: rt hand Hx Seizures No: denies PMH - GI Hx Gastrointestinal Disorders Yes Hx Gastroesophageal Reflux denies reflux Hx Weight Loss/Weight Gain No PMH - Hx Genitourinary Disorders No Hx Bladder Problem Yes: retention Hx Prostate Problems No: pt states no but on flomax Hx Urinary Tract Infection Yes PMH - Endocrine Hx Endocrine Disorders Yes Hx Diabetes Yes Hx Thyroid Disease Yes Hx of NIDDM Yes Hx of IDDM Yes Comment: checks blood sugars bid (100-140)/ulcers on feet due to poor circulation PMH - Musculoskeletal Hx Musculoskeletal Disorders Yes Hx Arthritis Yes Hx Back Injury Yes Hx Musculoskeletal Disease Yes Comment: chronic pain; hx septic hip in past PMH - Psych Hx Psychiatric Problems No PMH - Hematology/Oncology Hx Hematology/Oncology Yes Disorders Hx Anemia Yes Hx Bruising Yes Hx Cancer Yes: skin Hx Clotting Problems Yes Hx Blood Transfusion Reaction No Comment: pt to bridge with Lovenox 4 days preop Premorbid Status: Detail (Prior to his recent surgery the patient was ambulatory with two canes.) Social History: Detail (The patient lives alone in a one story home with 3 steps at the entrance and one handrail. The patient has two bathrooms, one with a shower stall and elevated toilet seat with grab bars and one with a tub/ shower combination and standard toilet with grab bars.) Precautions: [place], Fall, Other (Contact isolation, no lifting greater than 10#) Therapy Assessment - Therapy Assessment Detail (The patient was transferred to inpatient status due to medical status, after one day in the swing bed unit. The patient's status at discharge from swing bed is unchanged from the initial evaluation.) Problem List - Problem List Physical Therapy Problem List: Detail (1) Level 10 cervical pain 2) Decreased LE strength 3) Assistance with transfers and ambulation 4) Guarded posture due to pain and decreased cervical AROM) Occupational Therapy Problem List: Detail (1. Decreased Ind with self care activities. 2. Decreased Ind with functional mobility needed for safe ADLs. 3. Decreased UE strength and ROM as well as overall endurance needed for safe ADLs. 4. Significant pain limiting functional Ind.) Goals - Goals Physical Therapy Goals: NOT MET: 1) Assess bed mobility. 2)The patient will be independent with all transfers and bed mobility. 3) Independent ambulation with appropriate assistive device distances of 150 feet plus on levels. 4) Independent ambulation on stairs. 5) Increase LE strength 1/3 muscle grade in weakened muscle groups. 6) Increase cervical AROM by 10 to 15 degrees within cervical surgery precautions. 7) Decrease pain level to 5-6 using 0 to 10 pain scale to allow the patient to acheive bed mobility, transfers and ambulation independently. Occupational Therapy Goals: 1. Assess safety and Ind with total body dressing and showering. 2. Decrease pain and improve endurance needed for safe and Ind ADLs and functional mobility 3. Increase doroteo UE AROM and strength to allow safe and Ind function. Plan - Plan Physical Therapy Plan: Patient is discharged from the Swing bed unit and will be seen by PT as an inpatient. Occupational Therapy Plan: OT 2-4 times per week to address self cares, functional mobility, UE function and overall endurance needed to allow safe and Ind return home.
[2017-09-17] MEDS ORDERED: VANCOMYCIN HCL 500 MG in 0.9 % SODIUM CHLORIDE 100ML 100 ML IV SCH (12:00)
[2017-09-17] MEDS ORDERED: VANCOMYCIN HCL 750 MG in 0.9 % SODIUM CHLORIDE 250ML 250 ML IVPB SCH (12:30)
--- NOTE | 2017-09-17 13:46 | Discharge Summary ---
Providers Discharge Summary Date: 09/17/17 Date of admission: 09/15/17 13:49 Attending physician: Alejo Agosto Primary care physician: Alejo Agosto Physical Exam - Vital Signs Vital Signs: Vital Signs - Last 24 Hrs Temp Pulse Pulse Resp BP Pulse Ox 09/17/17 12:00 98.1 F 73 16 88/51 100 09/17/17 10:57 73 18 97 09/17/17 08:00 98.4 F 73 16 99/57 100 09/17/17 04:00 97.9 F 74 18 107/64 99 09/17/17 00:07 97.1 F L 87 18 92/66 99 09/16/17 20:00 97.4 F L 84 18 118/66 99 09/16/17 17:55 98.9 F 87 18 104/56 99 - General General Appearance: Alert, Oriented x3, Cooperative Limitations: Physical limitation (neck pain s/p cervica lami) - Head Head exam: Atraumatic, Normocephalic, Normal inspection - Eye Eye exam: Normal appearance, PERRL - ENT ENT exam: Mucous membranes moist - Neck Neck exam: Tenderness, Other (cervical incision well approx, sutures intact. No evidence hematoma or infection) - Respiratory Respiratory exam: Normal lung sounds bilaterally - Cardiovascular Cardiovascular Exam: Regular rate, Normal rhythm, Systolic murmur Peripheral Pulses: 2+: Dorsalis Pedis (R), Dorsalis Pedis (L), 3+: Radial (R), Radial (L) - GI/Abdominal GI/Abdominal exam: Soft, Normal bowel sounds. negative: Tenderness - Rectal Rectal exam: Deferred - exam: Deferred - Extremities Extremities exam: Other (significant erythema covering most of the right lower leg with streaking up into the right medial thigh. no fluctuance, open wound or induration.). negative: Pedal edema, Tenderness - Back Back exam: Reports: Normal inspection - Neurological Neurological exam: Altered (somewhat slowed but appropriate, follows commands, oriented ), CN II-XII intact, Oriented X3 - Psychiatric Psychiatric exam: Normal mood - Skin Skin exam: Other (incision cervical spine) Hospitalization - Hospitalization Admission Diagnosis: Deconditioning S/P cervical C2-3 laminectomy and bilateral foraminotomies - Problem List (1) Cellulitis Current Visit: No Status: Acute Discharge Diagnosis: Site of cellulitis: extremity Site of cellulitis of extremity: lower extremity Laterality: right Qualified Code(s): L03.115 - Cellulitis of right lower limb Base Code: L03.90 - CELLULITIS, UNSPECIFIED Comment: 09/17/17- significant lower extermity erthyema. daughter states he had somethign like this prior to his surgery and they had him on keflex but that was discontinued prior to hospitalization for surgery. patient has h/o mrsa and sepsis. -MRSA PCR pending. was negative at [facility] last week. -WBC count up to 28 -blood cultures obtained -rocephin 1gm given last night. discussed further with pharmacy for better coverage with his MRSA history and concurrent pna -transition to vanc, meropenum, and levaquin dosed by pharmacy -vitals q4H -repeat labs this afternoon 1600. -admit to inpatient. (2) Healthcare-associated pneumonia Current Visit: No Status: Acute Base Code: J18.9 - PNEUMONIA, UNSPECIFIED ORGANISM Comment: 09/17/17 - WBC was 28,000 up from 11 on 09/14/17. CXR with probable left lower lobe infiltrate. -sputum culture obtained -blood cultures x2 -started on meropenum, levaquin, and vanc to cover for h/o MRSA, HAP, and possible aspiration with recent intubation. -continue O2 at 2L via NC to keep sats >92% -vitals q4H -repeat labs 1600 -admit to inpatient (3) Degenerative disc disease, cervical Current Visit: Yes Status: Acute Base Code: M50.30 - OTHER CERVICAL DISC DEGENERATION, UNSP CERVICAL REGION Comment: 09/17/17- s/p cervical laminectomy with bilateral foraminotomies C2-3. POD #6. incision with edges well approximated and no evidence of cellulitis. -pain not well controlled currently. had to hold narcotics due to depression/ low bp (4) Physical deconditioning Current Visit: Yes Status: Acute Base Code: R53.81 - OTHER MALAISE Comment : 09/17/17- s/p cervical laminectomy wtih bilateral foraminotomies C2-3 - follow up with neurosurgery as scheduled - PT/OT -will likely resume TAWANA once stabilized (5) Full code status Current Visit: No Status: Acute Base Code: Z78.9 - OTHER SPECIFIED HEALTH STATUS Comment: 09/17/17 will remain full code during Swing Bed admission - Hospitalization Course Disposition: Acute Care Hospital Transfer Procedures: Imaging and X-Rays 09/16/17 17:31 CHEST AP or PA ONLY [RAD] Stat HEAD WO CONTRAST [CT] Stat Abnormal Labs: Abnormal Lab Results 09/15/17 09/15/17 09/16/17 Range/Units 16:40 21:19 07:00 WBC (4.2-12.2) K/uL Hgb (14.0-18.0) gm/dl Hct (42.0-52.0) % MCHC (32-36) g/dl RDW (11.5-14.5) % MPV (7.4-10.4) fl Neutrophils % (47-80) % Lymphocytes (16-45) % pCO2 (35-48) mmHg pO2 (83-108) mmHg HCO3 (18-23) mmol/L ABG pH (7.35-7.45) ABG Base Excess (-2 - 3) mmol/L Carboxyhemoglobin (0-1.5) % Total Hemoglobin (14-18) g/dl FiO2 (21-21) % Potassium (3.4-4.5) mmol/L Chloride (98-107) mmol/L Carbon Dioxide (22-29) mmol/L BUN (8-23) mg/dL Creatinine (0.7-1.2) mg/dL POC Glucose 169 H 155 H 118 H (70-110) mg/dL Random Glucose (74-109) mg/dL Total Bilirubin (0.2-1.0) mg/dL C-Reactive Protein (<0.5) mg/dL Albumin (4.0-5.0) g/dL 09/16/17 09/16/17 09/16/17 Range/Units 17:30 17:35 17:35 WBC 28.8 H* (4.2-12.2) K/uL Hgb 13.2 L (14.0-18.0) gm/dl Hct (42.0-52.0) % MCHC 30.8 L (32-36) g/dl RDW 15.8 H (11.5-14.5) % MPV 11.0 H (7.4-10.4) fl Neutrophils % 90.0 H (47-80) % Lymphocytes 3.0 L (16-45) % pCO2 (35-48) mmHg pO2 (83-108) mmHg HCO3 (18-23) mmol/L ABG pH (7.35-7.45) ABG Base Excess (-2 - 3) mmol/L Carboxyhemoglobin (0-1.5) % Total Hemoglobin (14-18) g/dl FiO2 (21-21) % Potassium (3.4-4.5) mmol/L Chloride 92 L (98-107) mmol/L Carbon Dioxide 38.0 H (22-29) mmol/L BUN 35 H (8-23) mg/dL Creatinine 1.3 H (0.7-1.2) mg/dL POC Glucose (70-110) mg/dL Random Glucose 159 H (74-109) mg/dL Total Bilirubin 1.30 H (0.2-1.0) mg/dL C-Reactive Protein 4.5 H (<0.5) mg/dL Albumin (4.0-5.0) g/dL 09/16/17 09/17/17 09/17/17 Range/Units 18:19 06:33 07:23 WBC 24.7 H* (4.2-12.2) K/uL Hgb 12.7 L (14.0-18.0) gm/dl Hct 41.2 L (42.0-52.0) % MCHC 30.8 L (32-36) g/dl RDW 16.1 H (11.5-14.5) % MPV 11.5 H (7.4-10.4) fl Neutrophils % 92.0 H (47-80) % Lymphocytes 3.0 L (16-45) % pCO2 48.4 H (35-48) mmHg pO2 72.0 L (83-108) mmHg HCO3 37.0 H (18-23) mmol/L ABG pH 7.50 H (7.35-7.45) ABG Base Excess 12.1 H (-2 - 3) mmol/L Carboxyhemoglobin 2.3 H (0-1.5) % Total Hemoglobin 12.5 L (14-18) g/dl FiO2 28.0 H (21-21) % Potassium (3.4-4.5) mmol/L Chloride (98-107) mmol/L Carbon Dioxide (22-29) mmol/L BUN (8-23) mg/dL Creatinine (0.7-1.2) mg/dL POC Glucose 129 H (70-110) mg/dL Random Glucose (74-109) mg/dL Total Bilirubin (0.2-1.0) mg/dL C-Reactive Protein (<0.5) mg/dL Albumin (4.0-5.0) g/dL 09/17/17 09/17/17 Range/Units 07:23 07:23 WBC (4.2-12.2) K/uL Hgb (14.0-18.0) gm/dl Hct (42.0-52.0) % MCHC (32-36) g/dl RDW (11.5-14.5) % MPV (7.4-10.4) fl Neutrophils % (47-80) % Lymphocytes (16-45) % pCO2 (35-48) mmHg pO2 (83-108) mmHg HCO3 (18-23) mmol/L ABG pH (7.35-7.45) ABG Base Excess (-2 - 3) mmol/L Carboxyhemoglobin (0-1.5) % Total Hemoglobin (14-18) g/dl FiO2 (21-21) % Potassium 4.6 H (3.4-4.5) mmol/L Chloride 93 L (98-107) mmol/L Carbon Dioxide 38.0 H (22-29) mmol/L BUN 31 H (8-23) mg/dL Creatinine 1.4 H (0.7-1.2) mg/dL POC Glucose (70-110) mg/dL Random Glucose 140 H (74-109) mg/dL Total Bilirubin 1.30 H (0.2-1.0) mg/dL C-Reactive Protein 18.3 H (<0.5) mg/dL Albumin 3.7 L (4.0-5.0) g/dL Condition at Discharge: (3) Guarded Discharge Medications - Discharge Medications Home Medications: Ambulatory Orders Ascorbic Acid [Vitamin C] 1,000 mg PO BID 11/02/16 [Last Taken 04/14/17] Atorvastatin Calcium [Lipitor] 20 mg PO QHS 11/02/16 [Last Taken 04/14/17] Ferrous Sulfate 325 mg PO DAILY 11/02/16 [Last Taken 04/14/17] Hydromorphone HCl [Dilaudid] 1 mg PO CONT 11/02/16 [Last Taken 04/15/17] Insulin Detemir [Levemir] 6 unit SQ QHS 11/02/16 [Last Taken 04/14/17] Magnesium 400 mg PO BID 11/02/16 [Last Taken 04/14/17] Multivit-Min/FA/Lycopen/Lutein [Centrum Silver Tablet] 1 each PO DAILY 11/02/16 [Last Taken 04/14/17] Oxycodone HCl/Acetaminophen [Percocet 10mg/325mg] 1 - 2 tab PO Q4H PRN 11/02/16 [Last Taken 04/14/17] Ranitidine HCl [Zantac] 150 mg PO DAILY 11/02/16 [Last Taken 04/14/17] Tamsulosin HCl [Flomax] 0.4 mg PO DAILY 11/02/16 [Last Taken 04/14/17] Warfarin Sodium [Coumadin] 3 mg PO DAILY 11/02/16 [Last Taken 09/03/17 17:00] Amiodarone HCl [Pacerone] 200 mg PO DAILY 02/25/17 [Last Taken 04/14/17] Cholecalciferol (Vitamin D3) [Vitamin D3] 5,000 unit PO DAILY 02/25/17 [Last Taken 04/14/17] Clotrimazole/Betamethasone Dip [Clotrimazole-Betamethasone Crm] 15 gm TP BID [Last Taken 04/14/17] Levalbuterol Tartrate [Xopenex Hfa] 2 puff INH RESP.Q6H PRN 02/25/17 [Last Taken 04/14/17] Levothyroxine Sodium [Synthroid] 150 mcg PO QAM 02/25/17 [Last Taken 04/14/17] Polyethylene Glycol 3350 [Miralax] 17 gm PO DAILY 02/25/17 [Last Taken 04/14/17] Potassium Chloride [Klor-Con] 20 meq PO BID 02/25/17 [Last Taken 04/14/17] Sennosides/Docusate Sodium [Senna-Docusate Sodium Tablet] 2 each PO QHS [Last Taken 04/14/17] Metolazone [Zaroxolyn] 2.5 mg PO ASDIR 07/14/17 [Last Taken Unknown] Metoprolol/Hydrochlorothiazide [Lopressor Hct 50-25 Tablet] 1 each PO BID [Last Taken Unknown] Fluticasone/Salmeterol [Advair 250-50 Diskus] 1 each IH BID 09/07/17 [Last Taken Unknown] Enoxaparin Sodium [Lovenox] 40 mg SQ DAILY 09/08/17 [Last Taken Unknown] Furosemide [Lasix] 20 mg PO DAILY 09/08/17 [Last Taken Unknown] Discharge Plan - Discharge Instructions Activity at Discharge: As Per Physical Therapy Diet at Discharge: Diabetic Diet Quality Measures - Quality Measures Quality Measures: Advance Directives, Documentation of Current Medications in Medical Record, Elder Maltreatment Screen and Follow-Up Plan, Screening for High Blood Pressure and F/U Documented - Current Medications Quality Measure: Measure #130: Documentation of Current Medications Documentation of Current Medications: <Current Medications Documented/Reviewed> [G8427] - Blood Pressure Screening Quality Measure: Screening for High Blood Pressure and Follow-Up Documented Does Patient Have Any of the Following: Active Dx of HTN Blood Pressure Classification: Normal BP Reading Systolic Measurement: 88 Diastolic Measurement: 51 Screening for High Blood Pressure: Patient Exclusion, Hx of HTN [G9744] - Advance Directives Quality Measure: Measure #47: Care Plan Advance Directives Established: Yes Advance Directives Information Provided To Patient: Yes Advance Directives on File: No Living Will: Yes Power of Dealer Sales Manager: Yes Power of Dealer Sales Manager Name: Emelyn Advance Care Planning: <Care Plan/Decision Maker Documented; Discussed & Documented> [1123F] - Elder Abuse Suspicion Index Screening: Elder Abuse Suspicion Index Screening Rely on people for bathing, dressing, shopping, banking, etc: No Prevented from getting food, clothes, medication, etc: No Made to feel shamed or threatened by someone: No Forced to sign papers or use money against will: No Feel afraid, touched in ways not wanted or hurt physically: No Poor eye contact, withdrawn, malnourished, cuts or bruises: No Screening Result: Negative result EASI Reference Information: Tony MAE, Johnnie C, Sonam D, Nely Ford.Development and validation of a tool to assist physicians identification of elder abuse: The Elder Abuse Suspicion Index (EASI ). Journal of Elder Abuse and Neglect, 2008; 20 (3): 276-300. - Elder Maltreatment Screen Quality Measures: Elder Maltreatment Screen and Follow-Up Plan Elder Maltreatment Screen: <Negative, No Follow-Up Plan Required> [G8734]
[2017-09-18 07:37] LABS: ALB/GLOB RATIO 1.2 (1.1-1.8); ALBUMIN 2.9 g/dL (4.0-5.0); ALKALINE PHOSPHATASE 64 U/L (40-129); ALT/SGPT 13 U/L (<41); AST/SGOT 15 U/L (10.0-50.0); BLOOD UREA NITROGEN 26 mg/dL (8-23); CREATININE 1.2 mg/dL (0.7-1.2); EST GLOMERULAR FILTRATION RATE > 60 mL/min; GLUCOSE,RANDOM 100 mg/dL (74-109); TOTAL PROTEIN 5.4 g/dL (6.6-8.7)
--- NOTE | 2017-09-18 07:44 | RADIOLOGY REPORT ---
EXAM: CHEST HISTORY: CONFUSION. HYPOXEMIA. TECHNIQUE: Upright PA views of the chest were obtained. Comparison: Two view chest radiographic examination dated 09/07/17. FINDINGS: A dual lead transvenous cardiac stimulator remains in place via the left subclavian approach with lead tips in the right atrium and right ventricle respectively. The cardio-pericardial silhouette is enlarged appearing slightly more pronounced in the interval though this may just relate to low lung volumes. No definite new pulmonary venous hypertension is seen. There is elevation of the left hemidiaphragm. Mild patchy air space opacities are noted in the left lung base, not significantly changed. These are consistent with atelectasis or less likely infiltrate. The lungs and pleural spaces are otherwise clear. There are degenerative changes scattered within the visualized spine. IMPRESSION: 1. THE CARDIO-PERICARDIAL SILHOUETTE PROJECTS ENLARGED. THIS APPEARS MORE PRONOUNCED THAN ON THE PRIOR EXAMINATION THOUGH THIS MAY JUST RELATE TO DIFFERENCES IN TECHNIQUE. NO GROSS PULMONARY VENOUS HYPERTENSION. 2. LOW LUNG VOLUMES. MINOR PATCHY AIR SPACE OPACITIES WITHIN THE LEFT LUNG BASE, NOT SIGNIFICANTLY CHANGED, CONSISTENT WITH ATELECTASIS OR INFILTRATE. JOB NUMBER: [id number] [facility]
--- NOTE | 2017-09-18 07:52 | CT SCAN REPORT ---
EXAM: CT OF THE HEAD WITHOUT CONTRAST HISTORY: CONFUSION. HYPOXEMIA. PRIOR CERVICAL SPINE SURGERY LAST WEEK. TECHNIQUE: Routine noncontrast CT examination of the head was performed. Comparison: CT of the head without contrast dated 07/21/15. FINDINGS: There is mild dilatation of the subarachnoid spaces consistent with atrophy. The ventricles are not enlarged. Mild periventricular and subcortical white matter lucencies are scattered in each cerebral hemisphere most pronounced in the frontal lobes. These are not grossly changed in the interval given differences in technique. There are likely areas of chronic small vessel ischemia. No new suspicious area of abnormally increased or decreased attenuation is noted throughout the brain substance. No abnormal extraaxial fluid collection is seen. The visualized paranasal sinuses and mastoid air cells are clear. Post cataract surgery changes are noted bilaterally. The orbits are otherwise unremarkable. There are changes of unroofing of the posterior arch of C2 with contiguous changes in the adjacent soft tissues. There is questionable minor posterior epidural deformity at the surgical site causing apparent narrowing of the thecal sac at the C2 level with probable mild central canal stenosis. IMPRESSION: 1. NO ACUTE MAJOR VESSEL INFARCT, INTRACRANIAL HEMORRHAGE, NOR MASS. 2. GENERALIZED ATROPHY. WHITE MATTER LUCENCIES IN EACH CEREBRAL HEMISPHERE REDEMONSTRATED CONSISTENT WITH CHRONIC SMALL VESSEL ISCHEMIA. 3. CHANGES OF UNROOFING OF THE POSTERIOR ARCH OF C2 WITH CHANGES IN THE ADJACENT SOFT TISSUES. ADDITIONALLY, THERE DOES APPEAR TO BE A MILD POSTERIOR EPIDURAL DEFECT AT THE SURGICAL LEVEL WITH MILD CENTRAL CANAL STENOSIS SUGGESTED. THE ETIOLOGY OF THIS DEFECT IS INDETERMINATE. JOB NUMBER: [id number] [facility]
[2017-09-22 07:20] LABS: PROTHROMBIN TIME (PATIENT) 10.8 SECONDS (9.5-12.1)
[2017-09-23] MEDS ORDERED: WARFARIN 1 MG TABLET PO SCH (16:00)
== END 2017-09-17 10:25 | disposition short-term general hospital (02) | DRG 947 ==
LOC: MEDSURG 09-15 13:49
PROVIDERS: ADMIT Internal Medicine; ATTEND Internal Medicine
DX: R53.81 Other malaise (principal); J18.9 Pneumonia, unspecified organism; L03.115 Cellulitis of right lower limb; M50.30 Other cervical disc degeneration, unspecified cervical region; N18.9 Chronic kidney disease, unspecified; E03.9 Hypothyroidism, unspecified; I10 Essential (primary) hypertension; E11.65 Type 2 diabetes mellitus with hyperglycemia; Z79.4 Long term (current) use of insulin; I48.91 Unspecified atrial fibrillation; Z79.01 Long term (current) use of anticoagulants; J44.9 Chronic obstructive pulmonary disease, unspecified; Z95.810 Presence of automatic (implantable) cardiac defibrillator; I50.9 Heart failure, unspecified; I12.9 Hypertensive chronic kidney disease with stage 1 through stage 4 chronic kidney disease, or unspecified chronic kidney disease; E11.22 Type 2 diabetes mellitus with diabetic chronic kidney disease
CPT/HCPCS: 36416; 36600; 70450; 71010; 80053; 81003; 82375; 82803; 82948; 83605; 83735; 84443; 85027; 85610; 86140; 87040; 87070; 97165; 99306; 99316; J1650; J1956; J7050

== ENCOUNTER 2017-09-17 10:23 | Inpatient (IN) | payer MEDICARE, OTHER ==
[2017-09-17] MEDS ORDERED: SENNOSIDES/DOCUSATE SODIUM UD CAPSULE PO PRN (11:51)
[2017-09-17] MEDS ORDERED: OXYCODONE HCL/APAP 5MG/325MG TABLET PO PRN (11:51)
[2017-09-17] MEDS ORDERED: DIAZEPAM 5 MG TABLET PO PRN (11:51)
[2017-09-17] MEDS ORDERED: OXYCODONE/APAP 10MG-325MG TABLET PO PRN (11:51)
[2017-09-17] MEDS ORDERED: 0.9 % SODIUM CHLORIDE 1000ML 1,000 ML IV PRN (11:51)
[2017-09-17] MEDS ORDERED: ALBUTEROL SULFATE (0.083%) 2.5 MG/3 ML NEB INH PRN (11:51)
[2017-09-17 12:31] LABS: INR 1.07; PROTHROMBIN TIME (PATIENT) 11.6 SECONDS (9.5-12.1)
--- NOTE | 2017-09-17 13:28 | Rehab Evaluation ---
Patient Information - Patient Information Diagnosis: cellulitis, LLL pneumonia Ordered Treatment: OT Evaluate and Treat Status: Initial Evaluation Surgery: Yes (cervical 2-3 laminectomy and ozzy foraminotomies) Date of Surgery: 09/11/17 History: Detail (Pt transitioned to inpatient status due to cellulitis and pnuemonia) Past Medical/Surgical Hx: PAST MEDICAL/SURGICAL HISTORY Past Surgical History pump trial with dilaudid implanted cath ( permanent device in place) Back surgery X5, neck surgery, Hip & shoulder sx ,Bunionectomy,bilat right hip replacement, AICD , abscess rt thigh, septic hip, hematoma rt thigh , revision x2, evac of hematoma post rt hip; lumbar rhizotomy 05/31/15. permanent pain pump 2015 C2-3 lminectomy 09/19 PMH - Respiratory Hx Respiratory Disorders Yes Hx Pneumonia Yes: 1989, current 2016 Hx of SOB Yes: occass PMH - Cardiovascular Hx Cardiovascular Disorders Yes Hx Abnormal EKG Yes Hx Congestive Heart Failure Yes Hx Deep Vein Thrombosis Yes: 20 years ago after being kicked by a cow, current rt ankle 01/2017 Hx Edema Yes: bilat legs recent hospitalization Hx Hypertension Yes Hx Irregular Heartbeat Yes: hx a fib had cardioversion 1990 & 01/2017 Hx Pacemaker/Defibrillator Yes: 2014 Comment: hospitalizations states cardiac arrest during past hospitalization 07/18 PMH - Neuro Hx Neurological Disorders No Hx Neuropathy Yes: rt hand Hx Seizures No: denies PMH - GI Hx Gastrointestinal Disorders Yes Hx Gastroesophageal Reflux denies reflux Hx Weight Loss/Weight Gain No PMH - Hx Genitourinary Disorders No Hx Bladder Problem Yes: retention Hx Prostate Problems No: pt states no but on flomax Hx Urinary Tract Infection Yes PMH - Endocrine Hx Endocrine Disorders Yes Hx Diabetes Yes Hx Thyroid Disease Yes Hx of NIDDM Yes Hx of IDDM Yes Comment: checks blood sugars bid (100-140)/ulcers on feet due to poor circulation PMH - Musculoskeletal Hx Musculoskeletal Disorders Yes Hx Arthritis Yes Hx Back Injury Yes Hx Musculoskeletal Disease Yes Comment: chronic pain; hx septic hip in past PMH - Psych Hx Psychiatric Problems No PMH - Hematology/Oncology Hx Hematology/Oncology Yes Disorders Hx Anemia Yes Hx Bruising Yes Hx Cancer Yes: skin Hx Clotting Problems Yes Hx Blood Transfusion Reaction No Comment: pt to bridge with Lovenox 4 days preop Premorbid Status: Detail (Pt lives alone in a 1 story house with 3 steps and one handrail at the entrance. He has 2 bathrooms, one has a shower stall as well as an elevated toilet seat with grab bar, the second bathroom has a tub/ shower combination and standard height toilet with grab bar. He was Ind with all ADLs/ADLs.) Precautions: [place], Fall, Other (No lifting greater than 10#, contact isolation) - Time With Patient Total Time Spent With Patient (Min): 45 Treatment Procedures: Detail (OT eval low complexity) Subjective Information - Subjective Information Per Patient Objective Data - Pain Pain Present: Yes (Neck pain continues but is improved this am.) - Mental Status Patient Orientation: Oriented x3 (Pt more alert today.) - Visual Perception Appears within normal limits for therapeutic activities (Pt better able to focus on therapist.) - ROM Not within normal limits (Ozzy shoulder flexion approx. 110 degrees (improved from previous eval), ozzy elbow, wrist and hand AROM WNL.) - Strength/Tone Not within normal limits (UE strength not formally tested due to surgical precautions.) - Coordination Appears within normal limits for therapeutic activities - Bed Mobility Needs Assist (Supine to sit with min assist and use of bed rails.) - Transfers Needs Assist (CG assist for sit to stand from EOB.) - Balance Balance Sitting: Good Balance Standing: Fair - Sensation Intact - Gait Detail (Pt able to ambulate 40 feet with 2 wheeled walker and CG assist before c /o leg fatigue.) - ADL's/IADL's Detail (Not able to formally assess due to fatigue level.) Therapy Assessment - Therapy Assessment Detail (Pt presents with decreased Ind with self cares and functional mobility as well as decreased endurance and significant neck pain which is limiting his function.) Problem List - Problem List Occupational Therapy Problem List: Detail (1. Decreased Ind with self cares 2. Decreased Ind with functional mobility 3. Increased pain and decreased endurance) Goals - Goals Occupational Therapy Goals: 1. Pt will be safe and Ind with total body dressing 2. Pt will improve overall endurance and decrease pain to allow Ind with self cares and functional mobility Prognosis - Prognosis Good Plan - Plan Occupational Therapy Plan: OT 2-4 times per week to address self cares, functional mobility, endurance and pain management.
--- NOTE | 2017-09-17 14:34 | Rehab Evaluation ---
Patient Information - Patient Information Diagnosis: cellulitis, LLL pneumonia Ordered Treatment: PT Evaluate and Treat Status: Initial Evaluation Surgery: Yes (cervical 2-3 laminectomy and doroteo foraminotomies) Date of Surgery: 09/11/17 History: Detail (Pt transitioned to inpatient status due to cellulitis and pnuemonia) Past Medical/Surgical Hx: PAST MEDICAL/SURGICAL HISTORY Past Surgical History pump trial with dilaudid implanted cath ( permanent device in place) Back surgery X5, neck surgery, Hip & shoulder sx ,Bunionectomy,bilat right hip replacement, AICD , abscess rt thigh, septic hip, hematoma rt thigh , revision x2, evac of hematoma post rt hip; lumbar rhizotomy 05/31/15. permanent pain pump 2015 C2-3 lminectomy 09/19 PMH - Respiratory Hx Respiratory Disorders Yes Hx Pneumonia Yes: 1989, current 2016 Hx of SOB Yes: occass PMH - Cardiovascular Hx Cardiovascular Disorders Yes Hx Abnormal EKG Yes Hx Congestive Heart Failure Yes Hx Deep Vein Thrombosis Yes: 20 years ago after being kicked by a cow, current rt ankle 01/2017 Hx Edema Yes: bilat legs recent hospitalization Hx Hypertension Yes Hx Irregular Heartbeat Yes: hx a fib had cardioversion 1990 & 01/2017 Hx Pacemaker/Defibrillator Yes: 2014 Comment: hospitalizations states cardiac arrest during past hospitalization 07/18 PMH - Neuro Hx Neurological Disorders No Hx Neuropathy Yes: rt hand Hx Seizures No: denies PMH - GI Hx Gastrointestinal Disorders Yes Hx Gastroesophageal Reflux denies reflux Hx Weight Loss/Weight Gain No PMH - Hx Genitourinary Disorders No Hx Bladder Problem Yes: retention Hx Prostate Problems No: pt states no but on flomax Hx Urinary Tract Infection Yes PMH - Endocrine Hx Endocrine Disorders Yes Hx Diabetes Yes Hx Thyroid Disease Yes Hx of NIDDM Yes Hx of IDDM Yes Comment: checks blood sugars bid (100-140)/ulcers on feet due to poor circulation PMH - Musculoskeletal Hx Musculoskeletal Disorders Yes Hx Arthritis Yes Hx Back Injury Yes Hx Musculoskeletal Disease Yes Comment: chronic pain; hx septic hip in past PMH - Psych Hx Psychiatric Problems No PMH - Hematology/Oncology Hx Hematology/Oncology Yes Disorders Hx Anemia Yes Hx Bruising Yes Hx Cancer Yes: skin Hx Clotting Problems Yes Hx Blood Transfusion Reaction No Comment: pt to bridge with Lovenox 4 days preop Premorbid Status: Detail (Pt lives alone in a 1 story house with 3 steps and one handrail at the entrance. He has 2 bathrooms, one has a shower stall as well as an elevated toilet seat with grab bar, the second bathroom has a tub/ shower combination and standard height toilet with grab bar. He was Ind with all ADLs/ADLs.) Social History: Detail (The patient has a supportive daughter) Precautions: Taylor, Fall, Other (No lifting greater than 10#, contact isolation) Subjective Information - Subjective Information Per Patient (The patient was in extreme cervical pain per his report.) Objective Data - Pain Pain Present: Yes Pain Intensity: 10 Pain Scale Used: Numeric (1 - 10) - Mental Status Patient Orientation: Oriented x3 (The patient continues to have difficulty making eye contact. The patient prefers to keep his eyes closed.) - ROM Not within normal limits (The patient is unable to achieve any cervical AROM due to pain. LE AROM was deferred secondary to pain complaints.) - Strength/Tone Not within normal limits (LE strength: hip flexors R 3-/5, L 4/5, hip abductors bilaterally 3+/5, bilateral hip adductors 4-/5, hip extensors R 3-/5, L 3/5, rotators were not tested, knee flexors L 4+/5, R 4/5, quadriceps R 4-/5, L 4+/5 , ankle musculature 4+/5. Pain was noted with resisted R knee extension and active R hip flexion.) - Bed Mobility Needs Assist (The patient acheived sit to supine with mod/maximal assist of 2 and scooting up in bed with maximal assist of 2.) - Transfers Independent (sit to and from stand with supervision for safety only.) - Balance Balance Sitting: Good Balance Standing: Fair - Gait Detail (The patient ambulated with wheeled walker 7.5 feet x 1 with CG of 1 for safety.) Therapy Assessment - Therapy Assessment Detail (The patient is requiring assistance with mobility and transfers with all movements slow and gaurded. The patient's pain level is effecting his mobility and ability to participate in Rehab. Feel the patient will progress well once pain level is controlled.) Problem List - Problem List Physical Therapy Problem List: Detail (1) cervical pain 2) Decreased LE strength 3) Assistance with bed mobility 4) Decreased ambulation distance. 5) Gaurded posture due to cervical pain.) Goals - Goals Physical Therapy Goals: 1) The patient will be able to acheive bed mobility with minimal assist. 2) The patient will be able to acheive transfers independently. 3) Independent ambulation distance of 100 feet plus. 4) Increase LE strength 1/3 muscle grade to improve stability of gait. Prognosis - Prognosis Moderate Plan - Plan Physical Therapy Plan: PT M-F one time a day for gait training, transfer training, bed mobility and LE strengthening and cervical AROM exercises, pain management techniques as needed including modalities and manual therapy.
[2017-09-17] MEDS ORDERED: WARFARIN 1 MG TABLET PO SCH ×2 (16:00)
[2017-09-17 16:03] LABS: HEMATOCRIT 36.4 % (42.0-52.0); HEMOGLOBIN 10.9 gm/dl (14.0-18.0); MEAN CELL VOLUME 92.2 fl (81-97); MEAN CORPUSCULAR HGB CONC 29.9 g/dl (32-36); MEAN PLATELET VOLUME 11.2 fl (7.4-10.4); PLATELET COUNT 120 K/uL (130-400); RED BLOOD COUNT 3.95 M/uL (4.40-5.70); WHITE BLOOD COUNT W/O DIFF 19.6 K/uL (4.2-12.2)
[2017-09-17 16:05] LABS: MEAN CORPUSCULAR HEMOGLOBIN 27.5 pg (27-33)
[2017-09-17] MEDS: BUMETANIDE 1 MG TABLET PO SCH (16:08)
--- NOTE | 2017-09-17 16:13 | History & Physical ---
History of Present Illness - Date of Service Date of Service for History & Physical: 09/17/17 - History of Present Illness Admitting Diagnosis: cellulitis, LLL pneumonia Travel Screening - Travel/Exposure Within Last 30 Days Have you traveled within the last 30 days?: No - Travel Symptoms Symptom Screening: None Review of Systems Constitutional: Reports: Chills, Weakness. Denies: Fever Eyes: Denies: Eye pain ENT: Denies: Congestion, Ear pain, Throat pain Respiratory: Reports: Cough. Denies: Dyspnea Cardiovascular: Reports: Edema (chronic pedal). Denies: Chest pain Endocrine: Reports: Fatigue, Polydipsia. Denies: Polyuria Gastrointestinal: Denies: Abdominal pain, Constipation Musculoskeletal: Reports: Neck pain (08/12 ) Skin: Reports: Rash (right lower leg) Psychiatric: Denies: Anxiety, Depression Hematological/Lymphatic: Reports: Anemia, Easy bleeding Past Medical History - SOCIAL HISTORY Smoking Status: Former smoker - RESPIRATORY Hx Respiratory Disorders: Yes Hx Pneumonia: Yes (1989, current 2016) - CARDIOVASCULAR Hx Cardio Disorders: Yes Hx Abnormal EKG: Yes Hx CHF: Yes Hx Deep Vein Thrombosis: Yes (20 years ago after being kicked by a cow, current rt ankle 01/2017) Hx Edema: Yes (bilat legs recent hospitalization) Hx Hypertension: Yes Hx Irregular Heartbeat: Yes (hx a fib had cardioversion 1990 & 01/2017) Hx Pacemaker/Defib: Yes (2014) Comment:: hospitalizations states cardiac arrest during past hospitalization - NEURO Hx Neuro Disorders: No Hx Seizures: No (denies) - GI Hx GI Disorders: Yes Hx Reflux: (denies reflux) Hx Wt Loss/Wt Gain: No - Hx Genitourinary Disorders: No Hx Prostate Problems: No (pt states no but on flomax) - ENDOCRINE Hx Endocrine Disorders: Yes Hx Diabetes: Yes - MUSCULOSKELETAL Hx Musculoskeletal Disorders: Yes Hx Arthritis: Yes Hx Back Injury: Yes Hx Musculoskeletal Disease: Yes Comment:: chronic pain; hx septic hip in past - PSYCH Hx Psych Problems: No - HEMATOLOGY/ONCOLOGY Hx Hematology/Oncology Disorders: Yes Hx Anemia: Yes Hx Bruising: Yes Hx Cancer: Yes (skin) Hx Clotting Problems: Yes Hx Blood Transfusions: Yes (with hip surgery, and hematoma) Hx Blood Transfusion Reaction: No Family Medical History Any Significant Family History?: Yes Hx Cancer: Father, Mother Hx Dementia: Mother *Dementia Comment: mother alzheimers H&P Meds/Allergies - Allergies Allergies: Allergies Allergy/AdvReac Type Severity Reaction Status Date / Time onion Allergy Intermediate NAUSEA Verified 01/30/16 14:13 - Active Medications Active Medications: Current Medications Acetaminophen (Tylenol 500mg Tab) 1,000 mg PO Q6H PRN PRN Reason: Fever GT 101/Headache Albuterol Sulfate () 2.5 mg INH RESP.Q6H PRN PRN Reason: DIFFICULTY IN BREATHING Amiodarone HCl (Pacerone) 200 mg PO DAILY [facility] Ascorbic Acid (Vitamin C) 1,000 mg PO BID [facility] Atorvastatin Calcium (Lipitor) 20 mg PO QHS [facility] Bumetanide (Bumex) 2 mg PO BIDDIUR [facility] Last Admin: 09/17/17 16:08 Dose: Not Given Diazepam (Valium) 5 mg PO Q6HR PRN PRN Reason: MUSCLE SPASMS Enoxaparin Sodium (Lovenox) 40 mg SQ DAILY [facility] Sodium Chloride () 1,000 mls @ 50 mls/hr IV .Q20H PRN PRN Reason: LARGE VOLUME IV Levothyroxine Sodium (Synthroid) 125 mcg PO DAILYTHY [facility] Magnesium Oxide (Mag Ox) 400 mg PO DAILY [facility] Metolazone (Zaroxolyn) 2.5 mg PO DAILY [facility] Metoprolol Tartrate (Lopressor) 25 mg PO BID [facility] Multivitamins/Minerals (Centrum) 1 tab PO DAILY [facility] Oxycodone/Acetaminophen (Percocet 10-325 Mg Tablet) 2 each PO Q4H PRN PRN Reason: Pain - Severe (8-10) Oxycodone/Acetaminophen (Percocet 5-325 Mg Tablet) 1 udtab PO Q4H PRN PRN Reason: Pain - Moderate (5-7) Stop: 09/24/17 11:52 Last Admin: 09/17/17 16:07 Dose: 1 udtab Polyethylene Glycol (Polyethylene Glycol 3350) 17 gm PO QHS [facility] Potassium Chloride (Klor-Con) 20 meq PO BID [facility] Ranitidine HCl (Zantac) 150 mg PO QHS [facility] Senna/Docusate Sodium (Senna Plus) 2 each PO BID PRN PRN Reason: Pain - Moderate (5-7) Tamsulosin HCl (Flomax) 0.4 mg PO DAILY [facility] Vitamin D (Vitamin D3) 5,000 unit PO DAILY [facility] Warfarin Sodium (Coumadin) 2 mg PO [id number] [facility] Last Admin: 09/17/17 16:06 Dose: Not Given Warfarin Sodium (Coumadin) 3 mg PO [id number] [facility] Last Admin: 09/17/17 16:05 Dose: 3 mg Physical Exam - General General Appearance: Alert, Oriented x3, Cooperative, Mild distress Limitations: Physical limitation (neck in soft collar due to recent surgery ) - Head Head exam: Atraumatic, Normocephalic, Normal inspection Head exam detail: negative: Abrasion, Contusion - Eye Eye exam: Normal appearance, PERRL, EOMI - ENT ENT exam: Normal exam, Mucous membranes moist, Normal external ear exam, Normal orophraynx, TM's normal bilaterally - Neck Neck exam: Tenderness (along incision). negative: Full ROM (due to recent surgery) - Respiratory Respiratory exam: Decreased breath sounds (left lower lobe), Prolonged expiratory. negative: Accessory muscle use, Respiratory distress - Cardiovascular Cardiovascular Exam: Regular rate, Normal rhythm, Systolic murmur - GI/Abdominal GI/Abdominal exam: Soft, Normal bowel sounds. negative: Tenderness - Extremities Extremities exam: Normal inspection, Full ROM, Normal capillary refill, Pedal edema. negative: Tenderness - Neurological Neurological exam: Abnormal gait (walks with walker; needs assistance), Alert, Oriented X3, Reflexes normal - Psychiatric Psychiatric exam: Normal affect, Normal mood - Skin Skin exam: Erythema (diffuse erythema of entire right anterior/posterior lower extremity with streaking upwards towards the groin with warmth. no area of fluctuance or open lesion.) Results - Labs Result Diagrams: 09/18/17 06:25 09/17/17 15:55 Labs Last 24 Hours: Laboratory Results - last 24 hr 09/17/17 09/17/17 07:23 15:55 WBC 19.6 H RBC 3.95 L Hgb 10.9 L Hct 36.4 L MCV 92.2 MCH 27.5 MCHC 29.9 L RDW 16.0 H Plt Count 120 L MPV 11.2 H Eosinophils % Not Reportable Basophils % Not Reportable PT 11.6 INR 1.07 - Imaging and Cardiology Chest x-ray Status: Report reviewed (left lower lobe atelectasis vs infiltrate) CT scan - head Status: Report reviewed (no acute changes) VTE H&P Assessment - Risk for VTE Risk for VTE: Yes Risk Level: High Risk Assessment Date: 09/17/17 Risk Assessment Time: 10:30 VTE Orders Placed or Will Be Placed: Yes Plan - Inpatient Certification Inpatient Certification: Admit to inpatient care: Based on my medical assessment, after consideration of patient's risk factors (age, co-morbidities and patient presenting symptoms and acuity), I expect that this patient will remain in the hospital greater than or equal to two midnights and that the services needed warrant inpatient care because: Patient Risk Factors: [age, cellulitis, hospital acquired pneumonia, leukocytosis, hypotension] Estimated length of stay: [72-96H] The patient may reasonably be expected to be discharged or transferred to a hospital within 96 hours after admission to . Services needed: [IV antibiotic therapy] Post hospital care (if known): [[facility]] I certify that my determination is in accordance with my understanding of Medicare requirements for reasonable and necessary inpatient services. 09/18/17 13:38 - Detailed Diagnosis and Plan (1) Cellulitis Current Visit: No Status: Acute Qualifiers: Site of cellulitis: extremity Site of cellulitis of extremity: lower extremity Laterality: right Qualified Code(s): L03.115 - Cellulitis of right lower limb Base Code: L03.90 - CELLULITIS, UNSPECIFIED Comment: 09/17/17- significant lower extermity erthyema. daughter states he had somethign like this prior to his surgery and they had him on keflex but that was discontinued prior to hospitalization for surgery. patient has h/o mrsa and sepsis. -MRSA PCR pending. was negative at [facility] last week. -WBC count up to 28 -blood cultures obtained -rocephin 1gm given last night. discussed further with pharmacy for better coverage with his MRSA history and concurrent pna -transition to vanc, meropenum, and levaquin dosed by pharmacy -vitals q4H -repeat labs this afternoon 1600. -ad[facility] to [facility]fa score [facility]. high risk for becoming septic especially with hisotry of the same (2) Healthcare-associated pneumonia Current Visit: No Status: Acute Base Code: J18.9 - PNEUMONIA, UNSPECIFIED ORGANISM Comment: 09/17/17 - WBC was 28,000 up from 11 on 09/14/17. CXR with probable left lower lobe infiltrate. -sputum culture obtained -blood cultures x2 -started on meropenum, levaquin, and vanc to cover for h/o MRSA, HAP, and possible aspiration with recent intubation. -continue O2 at 2L via NC to keep sats >92% -vitals q4H -repeat labs 1600 -admit to inpatient (3) Degenerative disc disease, cervical Current Visit: No Status: Acute Base Code: M50.30 - OTHER CERVICAL DISC DEGENERATION, UNSP CERVICAL REGION Comment: 09/17/17- s/p cervical laminectomy with bilateral foraminotomies C2-3. POD #6. incision with edges well approximated and no evidence of cellulitis. -pain not well controlled currently. had to hold narcotics due to depression/ low bp (4) Physical deconditioning Current Visit: No Status: Acute Base Code: R53.81 - OTHER MALAISE Comment : 09/17/17- s/p cervical laminectomy wtih bilateral foraminotomies C2-3 - follow up with neurosurgery as scheduled - PT/OT -will likely resume [facility] once stabilized (5) DVT prophylaxis Current Visit: No Status: Acute Base Code: [id number] - Comment: 09/17/17- Coumadin management for DVt prophylaxis and chronic anticoagulation therapy for history of PAF s/p CV - per neurosurgery recommendations will continue Lovenox x 5 days then will bridge to coumadin until INR therapeutic - pharmacy to dose - serial INR when coumadin resumes (6) Full code status Current Visit: No Status: Acute Base Code: Z78.9 - OTHER SPECIFIED HEALTH STATUS Comment: 09/17/17 will remain full code during Swing Bed admission
[2017-09-17 16:22] LABS: CREATININE 1.3 mg/dL (0.7-1.2)
[2017-09-17] MEDS: VANCOMYCIN HCL 750 MG in 0.9 % SODIUM CHLORIDE 250ML 250 ML IVPB SCH (17:30)
[2017-09-17] MEDS: HYDROCODONE/APAP 5/325MG TABLET PO PRN (18:21)
[2017-09-17] MEDS ORDERED: MEROPENEM 1 GM in 0.9 % SODIUM CHLORIDE 100ML 100 ML IVPB ONE (20:00)
[2017-09-17] MEDS ORDERED: CEFTRIAXONE SODIUM 1 GM in 0.9 % SODIUM CHLORIDE 100ML 100 ML IVPB SCH (22:00)
[2017-09-17] MEDS ORDERED: POLYETHYLENE GLYCOL 3350 238GM BOTTLE PO SCH (22:00)
[2017-09-17] MEDS ORDERED: METOPROLOL TART 25 MG TABLET PO SCH (22:00)
[2017-09-17] MEDS: ATORVASTATIN 20 MG TABLET PO SCH (23:04)
[2017-09-17] MEDS: ASCORBIC ACID 500 MG TAB PO SCH (23:05)
[2017-09-17] MEDS: POTASSIUM CHLORIDE 20 MEQ TABLET PO SCH (23:05)
[2017-09-17] MEDS: RANITIDINE HCL 150 MG TABLET PO SCH (23:05)
[2017-09-17] MEDS: POLYETHYLENE GLY 17 GM PACKET PO SCH (23:05)
[2017-09-17] MEDS: LEVEMIR FLEXTOUCH 100 UNIT/ML INSULIN PEN SQ SCH (23:06)
[2017-09-18] MEDS: ACETAMINOPHEN 500 MG TABLET PO PRN ×2 (01:29→06:40)
[2017-09-18] MEDS ORDERED: MEROPENEM IVPB SCH (03:00)
[2017-09-18] MEDS ORDERED: SODIUM CHLORIDE 0.9% IVPB SCH (03:00)
[2017-09-18] MEDS ORDERED: VANCOMYCIN HCL 500 MG in 0.9 % SODIUM CHLORIDE 100ML 100 ML IVPB SCH (04:00)
[2017-09-18] MEDS: VANCOMYCIN HCL 750 MG in 0.9 % SODIUM CHLORIDE 250ML 250 ML IVPB SCH ×2 (06:12→18:37)
[2017-09-18] MEDS: LEVOTHYROXINE SODIUM 125 MCG TABLET PO SCH (06:23)
[2017-09-18 06:51] LABS: HEMOGLOBIN 10.3 gm/dl (14.0-18.0); MEAN CELL VOLUME 91.9 fl (81-97); MEAN CORPUSCULAR HEMOGLOBIN 27.8 pg (27-33); MEAN CORPUSCULAR HGB CONC 30.3 g/dl (32-36); MEAN PLATELET VOLUME 11.6 fl (7.4-10.4); PLATELET COUNT 145 K/uL (130-400); RED CELL DISTRIBUTION WIDTH 15.7 % (11.5-14.5); WHITE BLOOD COUNT W/O DIFF 10.4 K/uL (4.2-12.2)
[2017-09-18 06:52] LABS: LACTIC ACID 0.9 mmol/L (0.5-2.2)
[2017-09-18] MEDS ORDERED: LEVOTHYROXINE SODIUM 175 MCG TABLET PO SCH (07:00)
[2017-09-18 07:15] LABS: C-REACTIVE PROTEIN 19.7 mg/dL (<0.5)
[2017-09-18 07:44] LABS: INR 1.05; PROTHROMBIN TIME (PATIENT) 11.3 SECONDS (9.5-12.1)
[2017-09-18] MEDS ORDERED: CLOTRIMAZOLE/BETAMET 15 GM TUBE TOP PRN (08:36)
[2017-09-18] MEDS: MEROPENEM 1 GM in 0.9% SODIUM CHLORIDE 50ML 50 ML IVPB SCH ×3 (08:45→23:06)
[2017-09-18] MEDS: HYDROCODONE/APAP 5/325MG TABLET PO PRN (08:46)
[2017-09-18] MEDS ORDERED: POTASSIUM CHLORIDE 20 MEQ TABLET PO ONE (10:16)
[2017-09-18] MEDS: ENOXAPARIN 40 MG/0.4 ML SYR SQ SCH (10:24)
[2017-09-18] MEDS: BUMETANIDE 1 MG TABLET PO SCH ×2 (10:27→15:25)
[2017-09-18] MEDS: POTASSIUM CHLORIDE 20 MEQ TABLET PO SCH ×2 (10:27→23:01)
[2017-09-18] MEDS: LEVOFLOXACIN/D5W 750 MG/150 ML BAG IVPB SCH (10:35)
[2017-09-18] MEDS: CHOLECALCIFEROL 1,000 UNIT TABLET PO SCH (10:37)
[2017-09-18] MEDS: FERROUS SULFATE 325 MG TAB PO SCH (10:37)
[2017-09-18] MEDS: METOLAZONE 2.5 MG TABLET PO SCH (10:37)
[2017-09-18] MEDS: AMIODARONE HCL 200 MG TABLET PO SCH (10:37)
[2017-09-18] MEDS: MAGNESIUM OXIDE 400 MG TABLET PO SCH (10:37)
[2017-09-18] MEDS: TAMSULOSIN HCL 0.4 MG CAP.ER.24H PO SCH (10:37)
[2017-09-18] MEDS: ASCORBIC ACID 500 MG TAB PO SCH ×2 (10:37→23:01)
[2017-09-18] MEDS: MULTIVITAMINS/MINERALS TABLET PO SCH (10:37)
[2017-09-18] MEDS: BREO (FLUTICASONE/VILANTEROL) 100MCG/25MCG INHALER INH SCH (10:47)
[2017-09-18] MEDS: TRAMADOL HCL 50 MG TABLET PO PRN (12:07)
[2017-09-18] MEDS ORDERED: OXYCODONE HCL/APAP 5MG/325MG TABLET PO PRN (13:49)
--- NOTE | 2017-09-18 17:46 | Physical Therapy Tx Note ---
Physical Therapy Tx Note - Treatment Note Tolerated: Fair Total Time Spent With Patient: 30 Physical Therapy Tx Note: Detail (Pt in bed upon arrival, HOB elevated. Drowsy , but willing to get out of bed, as MELIDA Hitchcock wants to evaluate R LE. Reported 10/10 pain in neck. Min assist for R LE and for assist to come to sitting at edge of bed; pt requested top siderail to be down. Sat briefly before coming to stand w/SBA to front-wheeled walker; assisted w/pajama pants for inspection by Coretta. Ambulated about 100 feet from bedside out into hallway and return w/front-wheeled walker, assist for IV pole. VCs to try to keep head up while standing/walking; reported R groin pain, weakness sensation in R hip. Returned to bedside chair for lunch; pillow under seat, behind back and behind head. Fatigued after treatment. Call light placed on bedside table within reach. Nrsg in room.) Physical Therapy Problem List: Detail (1) cervical pain 2) Decreased LE strength 3) Assistance with bed mobility 4) Decreased ambulation distance. 5) Gaurded posture due to cervical pain.) Physical Therapy Goals: 1) The patient will be able to acheive bed mobility with minimal assist. 2) The patient will be able to acheive transfers independently. 3) Independent ambulation distance of 100 feet plus. 4) Increase LE strength 1/3 muscle grade to improve stability of gait. Prognosis: Good Physical Therapy Plan: PT M-F one time a day for gait training, transfer training, bed mobility and LE strengthening and cervical AROM exercises, pain management techniques as needed including modalities and manual therapy.
[2017-09-18] MEDS: VANCOMYCIN HCL 500 MG in 0.9 % SODIUM CHLORIDE 100ML 100 ML IVPB SCH (17:58)
[2017-09-18] MEDS: OXYCODONE HCL/APAP 5MG/325MG TABLET PO PRN (20:36)
[2017-09-18] MEDS ORDERED: POLYETHYLENE GLY 17 GM PACKET PO SCH (22:00)
[2017-09-18] MEDS: POLYETHYLENE GLY 17 GM PACKET PO SCH (23:00)
[2017-09-18] MEDS: SENNOSIDES/DOCUSATE SODIUM UD CAPSULE PO SCH (23:01)
[2017-09-18] MEDS: ATORVASTATIN 20 MG TABLET PO SCH (23:01)
[2017-09-18] MEDS: RANITIDINE HCL 150 MG TABLET PO SCH (23:01)
[2017-09-18] MEDS: LEVEMIR FLEXTOUCH 100 UNIT/ML INSULIN PEN SQ SCH (23:02)
[2017-09-19] MEDS: VANCOMYCIN HCL 500 MG in 0.9 % SODIUM CHLORIDE 100ML 100 ML IVPB SCH ×2 (05:37→18:03)
[2017-09-19] MEDS: OXYCODONE HCL/APAP 5MG/325MG TABLET PO PRN ×2 (05:38→13:13)
[2017-09-19] MEDS: VANCOMYCIN HCL 750 MG in 0.9 % SODIUM CHLORIDE 250ML 250 ML IVPB SCH ×2 (06:09→19:16)
--- NOTE | 2017-09-19 07:21 | RADIOLOGY REPORT ---
EXAM: AP CHEST HISTORY: PICC LINE PLACEMENT. TECHNIQUE: AP view of the chest was obtained. Comparison: Chest x-ray 09/16/17. FINDINGS: Left side pacemaker is in place. Interval placement of right PICC line with the tip at the mid SVC in satisfactory position. The lungs are clear. The cardiac silhouette is probably mildly enlarged. Elevated left hemidiaphragm. The osseous structures are unremarkable. IMPRESSION: RIGHT PICC LINE IN PLACE WITH THE TIP AT THE MID SVC IN SATISFACTORY POSITION. JOB NUMBER: [id number] [facility]
--- NOTE | 2017-09-19 07:30 | Physician Progress Note ---
Subjective - Date Date of Physician Progress Note: 09/18/17 - Subjective Subjective Comment: 09/18/17- Patient is feeling better today. says compared to two days ago he feels remarkable. He continues to have 10/10 pain in the neck that is only mildly improved with percocet. Hydrocodone and tramadol were not effective. He denies pain in the right lower leg. He denies shortness of breath and says he hasn't been coughing today like he had been. He has more energy today and was able to get up and ambulate with his walker without assistance today. Objective - Vital Signs Vital Signs: Vital Signs - Last 24 Hrs Temp Pulse Pulse Pulse Resp BP BP 09/19/17 04:04 98.1 F 75 20 116/56 09/19/17 00:00 97.9 F 73 18 116/70 09/18/17 20:45 98.0 F 76 20 107/72 09/18/17 17:05 98.2 F 74 18 87/53 09/18/17 13:48 98.2 F 73 16 97/60 09/18/17 11:35 97.6 F 99/61 09/18/17 10:24 75 18 09/18/17 10:00 73 99/61 09/18/17 09:00 18 09/18/17 08:08 97.6 F 68 16 99/61 Pulse Ox 09/19/17 04:04 96 09/19/17 00:00 96 09/18/17 20:45 99 09/18/17 17:05 98 09/18/17 13:48 97 09/18/17 11:35 09/18/17 10:24 93 L 09/18/17 10:00 09/18/17 09:00 09/18/17 08:08 95 - General General Appearance: Alert, Oriented x3, Cooperative, No acute distress Limitations: Physical limitation (neck in soft collar due to recent surgery ) - Head Head exam: Atraumatic, Normocephalic, Normal inspection Head exam detail: negative: Abrasion, Contusion - Eye Eye exam: Normal appearance, PERRL, EOMI - ENT ENT exam: Normal exam, Mucous membranes moist, Normal external ear exam, Normal orophraynx, TM's normal bilaterally - Neck Neck exam: Tenderness (along incision). negative: Full ROM (due to recent surgery) - Respiratory Respiratory exam: Decreased breath sounds (left lower lobe), Prolonged expiratory. negative: Accessory muscle use, Respiratory distress - Cardiovascular Cardiovascular Exam: Regular rate, Normal rhythm (paced), Systolic murmur - GI/Abdominal GI/Abdominal exam: Soft, Normal bowel sounds. negative: Tenderness - Extremities Extremities exam: Normal inspection, Full ROM, Normal capillary refill, Pedal edema. negative: Tenderness - Neurological Neurological exam: Abnormal gait (walks with walker; needs assistance), Alert, Oriented X3, Reflexes normal - Psychiatric Psychiatric exam: Normal affect, Normal mood - Skin Skin exam: Erythema (diffuse erythema of entire right anterior/posterior lower extremity. the streaking up into the groin area has resolved. no area of fluctuance or open lesion.) Assessment and Plan - Assessment and Plan (1) Healthcare-associated pneumonia Current Visit: No Status: Acute Base Code: J18.9 - PNEUMONIA, UNSPECIFIED ORGANISM Comment: 09/18/17 - improved. 96% on room air and denies shortness of breath. states cough has improved. -sputum culture obtained and pending -blood cultures x2 pending -continue on meropenum, levaquin, and vanc to cover for h/o MRSA, HAP, and possible aspiration with recent intubation. -continue O2 at 2L via NC to keep sats >92% -vitals q4H -repeat labs qam (2) Cellulitis Current Visit: No Status: Acute Qualifiers: Site of cellulitis: extremity Site of cellulitis of extremity: lower extremity Laterality: right Qualified Code(s): L03.115 - Cellulitis of right lower limb Base Code: L03.90 - CELLULITIS, UNSPECIFIED Comment: 09/18/17- significant lower extermity erthyema improving from yesterday. patient has h/o mrsa and sepsis. -MRSA PCR still pending. was negative at [facility] last week. was positive in february of this year. -WBC count down to 10.4 today; CRP still elevated at 19. -prelim blood cultures were negative -conitnue vanc, meropenum, and levaquin dosed by pharmacy. -PICC line ordered -vitals q4H -repeat labs qam (3) Degenerative disc disease, cervical Current Visit: No Status: Acute Base Code: M50.30 - OTHER CERVICAL DISC DEGENERATION, UNSP CERVICAL REGION Comment: 09/18/17- s/p cervical laminectomy with bilateral foraminotomies C2-3. POD #7. incision with edges well approximated and no evidence of cellulitis. -pain not well controlled currently. had to hold narcotics due to depression/ low bp. -will restart percocet 5/325mg po q6H and continue to monitor BP q2H after administration -Dr. Russ was ordering the medication for his diluadid pain pump to be delivered to our hospital as his pump is currently very low (4) Physical deconditioning Current Visit: No Status: Acute Base Code: R53.81 - OTHER MALAISE Comment : 09/18/17- s/p cervical laminectomy wtih bilateral foraminotomies C2-3 - follow up with neurosurgery as scheduled - PT/OT -will likely resume TAWANA once stabilized (5) DVT prophylaxis Current Visit: No Status: Acute Base Code: [id number] - Comment: 09/18/17- Coumadin management for DVt prophylaxis and chronic anticoagulation therapy for history of PAF s/p CV - bridge to coumadin until INR therapeutic - pharmacy to dose - serial INR (6) Full code status Current Visit: No Status: Acute Base Code: Z78.9 - OTHER SPECIFIED HEALTH STATUS Comment: 09/18/17 will remain full code Results - Labs Result Diagrams: 09/18/17 06:25 09/17/17 15:55 Labs Last 24 Hours: Laboratory Results - last 24 hr 09/18/17 09/18/17 09/18/17 06:25 07:50 21:38 PT 11.3 INR 1.05 POC Glucose 99 215 H Vancomycin Trough 09/19/17 05:23 PT INR POC Glucose Vancomycin Trough 17.1 H DVT/PE Assessment - Risk for VTE Risk for VTE: No Risk Level: High Risk Assessment Date: 09/17/17 Risk Assessment Time: 10:30 VTE Orders Placed or Will Be Placed: Yes - Active Medicaitons Current Medications: Current Medications Acetaminophen (Tylenol 500mg Tab) 1,000 mg PO Q6H PRN PRN Reason: Fever GT 101/Headache Last Admin: 09/18/17 06:40 Dose: 1,000 mg Hydrocodone Bitart/Acetaminophen ([place] 5mg/325mg) 1 each PO Q4H PRN PRN Reason: Pain - Severe (8-10) Last Admin: 09/18/17 08:46 Dose: 1 each Albuterol Sulfate () 2.5 mg INH RESP.Q6H PRN PRN Reason: DIFFICULTY IN BREATHING Amiodarone HCl (Pacerone) 200 mg PO DAILY [facility] Last Admin: 09/18/17 10:37 Dose: 200 mg Ascorbic Acid (Vitamin C) 1,000 mg PO BID [facility] Last Admin: 09/18/17 23:01 Dose: 1,000 mg Atorvastatin Calcium (Lipitor) 20 mg PO QHS [facility] Last Admin: 09/18/17 23:01 Dose: 20 mg Bumetanide (Bumex) 2 mg PO BIDDIUR [facility] Last Admin: 09/18/17 15:25 Dose: 2 mg Clotrimazole (Lotrisone) 0.5 gm TOP BID PRN PRN Reason: RASH Diazepam (Valium) 5 mg PO Q6HR PRN PRN Reason: MUSCLE SPASMS Enoxaparin Sodium (Lovenox) 40 mg SQ DAILY [facility] Last Admin: 09/18/17 10:24 Dose: 40 mg Ferrous Sulfate (Iron) 325 mg PO DAILY [facility] Last Admin: 09/18/17 10:37 Dose: 325 mg Sodium Chloride () 1,000 mls @ 50 mls/hr IV .Q20H PRN PRN Reason: LARGE VOLUME IV Last Admin: 09/18/17 01:29 Dose: 50 mls/hr Levofloxacin/Dextrose (Levaquin 750mg Ivpb) 750 mg in 150 mls @ 125 mls/hr IVPB Q24H [facility] Stop: 09/23/17 10:01 Last Infusion: 09/18/17 13:53 Dose: Infused Meropenem 1 gm/ Sodium (Chloride) 50 mls @ 100 mls/hr IVPB Q8H [facility] Last Infusion: 09/18/17 23:40 Dose: Infused Vancomycin HCl 500 mg/ Sodium (Chloride) 100 mls @ 200 mls/hr IVPB Q12H [facility] Stop: 09/23/17 18:01 Last Infusion: 09/19/17 06:09 Dose: Infused Vancomycin HCl 750 mg/ Sodium (Chloride) 250 mls @ 333.333 mls/hr IVPB Q12H [facility] Last Admin: 09/19/17 06:09 Dose: 333.333 mls/hr Insulin Detemir (Levemir Flextouch) 6 unit SQ QHS [facility] Last Admin: 09/18/17 23:02 Dose: 6 unit Levothyroxine Sodium (Synthroid) 125 mcg PO DAILYTHY [facility] Last Admin: 09/18/17 06:23 Dose: 125 mcg Magnesium Oxide (Mag Ox) 400 mg PO DAILY [facility] Last Admin: 09/18/17 10:37 Dose: 400 mg Metolazone (Zaroxolyn) 2.5 mg PO DAILY [facility] Last Admin: 09/18/17 10:37 Dose: 2.5 mg Multivitamins/Minerals (Centrum) 1 tab PO DAILY [facility] Last Admin: 09/18/17 10:37 Dose: 1 tab Oxycodone/Acetaminophen (Percocet 5-325 Mg Tablet) 1 udtab PO Q6H PRN PRN Reason: Pain - Moderate (5-7) Stop: 09/25/17 13:50 Last Admin: 09/19/17 05:38 Dose: 1 udtab Polyethylene Glycol (Miralax) 17 gm PO QHS [facility] Last Admin: 09/18/17 23:00 Dose: 17 gm Potassium Chloride (Klor-Con) 20 meq PO BID [facility] Last Admin: 09/18/17 23:01 Dose: 20 meq Ranitidine HCl (Zantac) 150 mg PO QHS [facility] Last Admin: 09/18/17 23:01 Dose: 150 mg Senna/Docusate Sodium (Senna Plus) 2 each PO QHS [facility] Last Admin: 09/18/17 23:01 Dose: 2 each Tamsulosin HCl (Flomax) 0.4 mg PO DAILY [facility] Last Admin: 09/18/17 10:37 Dose: 0.4 mg Tramadol HCl (Ultram) 50 mg PO Q8H PRN PRN Reason: Pain - General Last Admin: 09/18/17 12:07 Dose: 50 mg Vitamin D (Vitamin D3) 5,000 unit PO DAILY [facility] Last Admin: 09/18/17 10:37 Dose: 5,000 unit Warfarin Sodium (C[facility]madin) [facility] Sodium (Coumadin) 2 mg PO TuSa [facility] AMI Plan - Labs Result Diagrams: 09/18/17 06:25 09/17/17 15:55
--- NOTE | 2017-09-19 07:34 | Physician Progress Note ---
Subjective - Date Date of Physician Progress Note: 09/19/17 - Subjective Subjective Comment: 09/19/17- Patient continues to be in significant amount of pain in his neck due to recent surgery. He states through the night he had some pain along the IT insertion of his right leg and feels like it is swollen there. He denies pain in the right foot but admits he has had intermittent numbness/tingling at times. He feels the percocet has been helping minimally. He is supposed to have his dilaudid pain pump refilled today by Dr. Russ. He has been up [facility] PT and is ambulating much better than previously in the week. Objective - Vital Signs Vital Signs: Vital Signs - Last 24 Hrs Temp Pulse Pulse Pulse Resp BP BP 09/19/17 04:04 98.1 F 75 20 116/56 09/19/17 00:00 97.9 F 73 18 116/70 09/18/17 20:45 98.0 F 76 20 107/72 09/18/17 17:05 98.2 F 74 18 87/53 09/18/17 13:48 98.2 F 73 16 97/60 09/18/17 11:35 97.6 F 99/61 09/18/17 10:24 75 18 09/18/17 10:00 73 99/61 09/18/17 09:00 18 09/18/17 08:08 97.6 F 68 16 99/61 Pulse Ox 09/19/17 04:04 96 09/19/17 00:00 96 09/18/17 20:45 99 09/18/17 17:05 98 09/18/17 13:48 97 09/18/17 11:35 09/18/17 10:24 93 L 09/18/17 10:00 09/18/17 09:00 09/18/17 08:08 95 - General General Appearance: Alert, Oriented x3, Cooperative, No acute distress Limitations: Physical limitation (neck in soft collar due to recent surgery ) - Head Head exam: Atraumatic, Normocephalic, Normal inspection Head exam detail: negative: Abrasion, Contusion - Eye Eye exam: Normal appearance, PERRL, EOMI - ENT ENT exam: Normal exam, Mucous membranes moist, Normal external ear exam, Normal orophraynx, TM's normal bilaterally - Neck Neck exam: Tenderness (along incision). negative: Full ROM (due to recent surgery) - Respiratory Respiratory exam: Decreased breath sounds (left lower lobe), Prolonged expiratory. negative: Accessory muscle use, Respiratory distress - Cardiovascular Cardiovascular Exam: Regular rate, Normal rhythm (paced), Systolic murmur - GI/Abdominal GI/Abdominal exam: Soft, Normal bowel sounds. negative: Tenderness - Extremities Extremities exam: Normal inspection, Full ROM, Normal capillary refill, Pedal edema. negative: Tenderness - Neurological Neurological exam: Abnormal gait (walks with walker; needs assistance), Alert, Oriented X3, Reflexes normal - Psychiatric Psychiatric exam: Normal affect, Normal mood - Skin Skin exam: Erythema (erythema continues to recede within marked borders. small area of swelling insertion right IT band. no areas of fluctuance or open lesions.) Assessment and Plan - Assessment and Plan (1) Healthcare-associated pneumonia Current Visit: No Status: Acute Base Code: J18.9 - PNEUMONIA, UNSPECIFIED ORGANISM Comment: 09/19/17 - improved. 99% on room air and denies shortness of breath. states cough has resolved -sputum culture prelim showing gramp positive cocci and gram positive rods -blood cultures prelim show no growth to date -continue on meropenum, levaquin, and vanc to cover for h/o MRSA, HAP, and possible aspiration with recent intubation. -continue O2 at 2L via NC to keep sats >92% -continue incentive spirometry -vitals q8H -repeat labs qam (2) Cellulitis Current Visit: No Status: Acute Qualifiers: Site of cellulitis: extremity Site of cellulitis of extremity: lower extremity Laterality: right Qualified Code(s): L03.115 - Cellulitis of right lower limb Base Code: L03.90 - CELLULITIS, UNSPECIFIED Comment: 09/19/17- erthyema continues to improve. patient has h/o mrsa and sepsis. PICC line placed yesterday -MRSA PCR still pending -WBC count down to 6.1 today; CRP trending downward 19 to 9.9 today. -BP mproving up to 113/71 and temp has been wnl range -prelim blood cultures were negative -conitnue vanc, meropenum, and levaquin dosed by pharmacy. -vitals q8H -repeat labs qam -will get targeted u/s over area of swelling to eval for abscess, seroma and will get doppler with new numbness/tingling. (3) Degenerative disc disease, cervical Current Visit: No Status: Acute Base Code: M50.30 - OTHER CERVICAL DISC DEGENERATION, UNSP CERVICAL REGION Comment: 09/19/17- s/p cervical laminectomy with bilateral foraminotomies C2-3. POD #8. incision with edges well approximated and no evidence of cellulitis. -pain somewhat better controlled. -continue percocet 5/325mg po q6H and continue to monitor BP q2H after administration -Dr. Russ refilled patient's diluadid pain pump today. Usually 12-24H before effective. (4) Physical deconditioning Current Visit: No Status: Acute Base Code: R53.81 - OTHER MALAISE Comment : 09/19/17- s/p cervical laminectomy wtih bilateral foraminotomies C2-3 - follow up with neurosurgery as scheduled - continue PT/OT -will likely resume TAWANA once stabilized (5) DVT prophylaxis Current Visit: No Status: Acute Base Code: [id number] - Comment: 09/19/17- Coumadin management for DVt prophylaxis and chronic anticoagulation therapy for history of PAF s/p CV - bridge to coumadin until INR therapeutic - pharmacy to dose - serial INR (6) Full code status Current Visit: No Status: Acute Base Code: Z78.9 - OTHER SPECIFIED HEALTH STATUS Comment: 09/19/17 will remain full code Results - Labs Result Diagrams: 09/21/17 06:10 09/21/17 06:10 Labs Last 24 Hours: Laboratory Results - last 24 hr 09/18/17 09/18/17 09/18/17 06:25 07:50 21:38 PT 11.3 INR 1.05 POC Glucose 99 215 H Vancomycin Trough 09/19/17 05:23 PT INR POC Glucose Vancomycin Trough 17.1 H DVT/PE Assessment - Risk for VTE Risk for VTE: No Risk Level: High Risk Assessment Date: 09/17/17 Risk Assessment Time: 10:30 VTE Orders Placed or Will Be Placed: Yes - Active Medicaitons Current Medications: Current Medications Acetaminophen (Tylenol 500mg Tab) 1,000 mg PO Q6H PRN PRN Reason: Fever GT 101/Headache Last Admin: 09/18/17 06:40 Dose: 1,000 mg Hydrocodone Bitart/Acetaminophen ([place] 5mg/325mg) 1 each PO Q4H PRN PRN Reason: Pain - Severe (8-10) Last Admin: 09/18/17 08:46 Dose: 1 each Albuterol Sulfate () 2.5 mg INH RESP.Q6H PRN PRN Reason: DIFFICULTY IN BREATHING Amiodarone HCl (Pacerone) 200 mg PO DAILY [facility] Last Admin: 09/18/17 10:37 Dose: 200 mg Ascorbic Acid (Vitamin C) 1,000 mg PO BID [facility] Last Admin: 09/18/17 23:01 Dose: 1,000 mg Atorvastatin Calcium (Lipitor) 20 mg PO QHS [facility] Last Admin: 09/18/17 23:01 Dose: 20 mg Bumetanide (Bumex) 2 mg PO BIDDIUR [facility] Last Admin: 09/18/17 15:25 Dose: 2 mg Clotrimazole (Lotrisone) 0.5 gm TOP BID PRN PRN Reason: RASH Diazepam (Valium) 5 mg PO Q6HR PRN PRN Reason: MUSCLE SPASMS Enoxaparin Sodium (Lovenox) 40 mg SQ DAILY [facility] Last Admin: 09/18/17 10:24 Dose: 40 mg Ferrous Sulfate (Iron) 325 mg PO DAILY [facility] Last Admin: 09/18/17 10:37 Dose: 325 mg Sodium Chloride () 1,000 mls @ 50 mls/hr IV .Q20H PRN PRN Reason: LARGE VOLUME IV Last Admin: 09/18/17 01:29 Dose: 50 mls/hr Levofloxacin/Dextrose (Levaquin 750mg Ivpb) 750 mg in 150 mls @ 125 mls/hr IVPB Q24H [facility] Stop: 09/23/17 10:01 Last Infusion: 09/18/17 13:53 Dose: Infused Meropenem 1 gm/ Sodium (Chloride) 50 mls @ 100 mls/hr IVPB Q8H [facility] Last Infusion: 09/18/17 23:40 Dose: Infused Vancomycin HCl 500 mg/ Sodium (Chloride) 100 mls @ 200 mls/hr IVPB Q12H [facility] Stop: 09/23/17 18:01 Last Infusion: 09/19/17 06:09 Dose: Infused Vancomycin HCl 750 mg/ Sodium (Chloride) 250 mls @ 333.333 mls/hr IVPB Q12H [facility] Last Admin: 09/19/17 06:09 Dose: 333.333 mls/hr Insulin Detemir (Levemir Flextouch) 6 unit SQ QHS [facility] Last Admin: 09/18/17 23:02 Dose: 6 unit Levothyroxine Sodium (Synthroid) 125 mcg PO DAILYTHY [facility] Last Admin: 09/18/17 06:23 Dose: 125 mcg Magnesium Oxide (Mag Ox) 400 mg PO DAILY [facility] Last Admin: 09/18/17 10:37 Dose: 400 mg Metolazone (Zaroxolyn) 2.5 mg PO DAILY [facility] Last Admin: 09/18/17 10:37 Dose: 2.5 mg Multivitamins/Minerals (Centrum) 1 tab PO DAILY [facility] Last Admin: 09/18/17 10:37 Dose: 1 tab Oxycodone/Acetaminophen (Percocet 5-325 Mg Tablet) 1 udtab PO Q6H PRN PRN Reason: Pain - Moderate (5-7) Stop: 09/25/17 13:50 Last Admin: 09/19/17 05:38 Dose: 1 udtab Polyethylene Glycol (Miralax) 17 gm PO QHS [facility] Last Admin: 09/18/17 23:00 Dose: 17 gm Potassium Chloride (Klor-Con) 20 meq PO BID [facility] Last Admin: 09/18/17 23:01 Dose: 20 meq Ranitidine HCl (Zantac) 150 mg PO QHS [facility] Last Admin: 09/18/17 23:01 Dose: 150 mg Senna/Docusate Sodium (Senna Plus) 2 each PO QHS [facility] Last Admin: 09/18/17 23:01 Dose: 2 each Tamsulosin HCl (Flomax) 0.4 mg PO DAILY [facility] Last Admin: 09/18/17 10:37 Dose: 0.4 mg Tramadol HCl (Ultram) 50 mg PO Q8H PRN PRN Reason: Pain - General Last Admin: 09/18/17 12:07 Dose: 50 mg Vitamin D (Vitamin D3) 5,000 unit PO DAILY [facility] Last Admin: 09/18/17 10:37 Dose: 5,000 unit Warfarin Sodium (Coumadin) [facility] Warfarin Sodium (Coumadin) 2 mg PO TuSa [facility] AMI Plan - Labs Result Diagrams: 09/21/17 06:10 09/21/17 06:10
[2017-09-19] MEDS: LEVOTHYROXINE SODIUM 125 MCG TABLET PO SCH (07:56)
[2017-09-19] MEDS: MEROPENEM 1 GM in 0.9% SODIUM CHLORIDE 50ML 50 ML IVPB SCH ×2 (07:57→16:46)
[2017-09-19] MEDS: TRAMADOL HCL 50 MG TABLET PO PRN (08:39)
[2017-09-19] MEDS: BREO (FLUTICASONE/VILANTEROL) 100MCG/25MCG INHALER INH SCH (10:00)
[2017-09-19 10:17] LABS: ALBUMIN 2.9 g/dL (4.0-5.0); BILIRUBIN,TOTAL 0.5 mg/dL (0.2-1.0); C-REACTIVE PROTEIN 9.9 mg/dL (<0.5); CREATININE 1.3 mg/dL (0.7-1.2); TOTAL PROTEIN 5.7 g/dL (6.6-8.7)
[2017-09-19 10:22] LABS: EOS % 4.1 % (0-6); GRAN % 74.7 % (47-80); HEMATOCRIT 36.4 % (42.0-52.0); HEMOGLOBIN 10.8 gm/dl (14.0-18.0); LYMPH % 11.7 % (16-45); MEAN CELL VOLUME 90.5 fl (81-97); MEAN CORPUSCULAR HGB CONC 29.7 g/dl (32-36); MEAN PLATELET VOLUME 11.3 fl (7.4-10.4); MONO % 9.5 % (0-9); PLATELET COUNT 161 K/uL (130-400); RED BLOOD COUNT 4.02 M/uL (4.40-5.70); RED CELL DISTRIBUTION WIDTH 15.6 % (11.5-14.5); WHITE BLOOD COUNT W/O DIFF 6.1 K/uL (4.2-12.2)
[2017-09-19 10:24] LABS: MEAN CORPUSCULAR HEMOGLOBIN 26.8 pg (27-33)
[2017-09-19] MEDS: ENOXAPARIN 40 MG/0.4 ML SYR SQ SCH (10:54)
[2017-09-19] MEDS: POTASSIUM CHLORIDE 20 MEQ TABLET PO SCH ×2 (10:55→23:05)
[2017-09-19] MEDS: BUMETANIDE 1 MG TABLET PO SCH ×2 (10:55→17:27)
[2017-09-19] MEDS: AMIODARONE HCL 200 MG TABLET PO SCH (10:55)
[2017-09-19] MEDS: CHOLECALCIFEROL 1,000 UNIT TABLET PO SCH (10:55)
[2017-09-19] MEDS: LEVOFLOXACIN/D5W 750 MG/150 ML BAG IVPB SCH (10:55)
[2017-09-19] MEDS: MAGNESIUM OXIDE 400 MG TABLET PO SCH (10:55)
[2017-09-19] MEDS: FERROUS SULFATE 325 MG TAB PO SCH (10:55)
[2017-09-19] MEDS: TAMSULOSIN HCL 0.4 MG CAP.ER.24H PO SCH (10:55)
[2017-09-19] MEDS: MULTIVITAMINS/MINERALS TABLET PO SCH (10:55)
[2017-09-19] MEDS: ASCORBIC ACID 500 MG TAB PO SCH ×2 (10:55→23:05)
[2017-09-19] MEDS: METOLAZONE 2.5 MG TABLET PO SCH (10:55)
[2017-09-19] MEDS: HEPARIN SODIUM FLUSH 100 UNITS/ML SYR 5ML IVP SCH ×2 (10:59→23:05)
[2017-09-19] MEDS: 0.9 % SODIUM CHLORIDE 10ML SYR IVP SCH ×2 (10:59→23:06)
[2017-09-19] MEDS ORDERED: LIDOCAINE HCL 1% MDV 20 ML VIAL SQ ONE (14:00)
--- NOTE | 2017-09-19 14:20 | Physical Therapy Tx Note ---
Physical Therapy Tx Note - Treatment Note Physical Therapy Tx Note: Detail (The patient was not seen by PT secondary to the patient is having a procedure this afternoon.) Physical Therapy Problem List: Detail (1) cervical pain 2) Decreased LE strength 3) Assistance with bed mobility 4) Decreased ambulation distance. 5) Gaurded posture due to cervical pain.) Physical Therapy Goals: 1) The patient will be able to acheive bed mobility with minimal assist. 2) The patient will be able to acheive transfers independently. 3) Independent ambulation distance of 100 feet plus. 4) Increase LE strength 1/3 muscle grade to improve stability of gait. Physical Therapy Plan: PT M-F one time a day for gait training, transfer training, bed mobility and LE strengthening and cervical AROM exercises, pain management techniques as needed including modalities and manual therapy.
[2017-09-19] MEDS ORDERED: HYDROMORPHONE HCL IVP ONE (15:00)
[2017-09-19] MEDS ORDERED: SODIUM CHLORIDE 0.9% IVP ONE (15:00)
[2017-09-19] MEDS: OXYCODONE/APAP 10MG-325MG TABLET PO PRN (17:30)
[2017-09-19] MEDS: POLYETHYLENE GLY 17 GM PACKET PO SCH (23:00)
[2017-09-19] MEDS: SENNOSIDES/DOCUSATE SODIUM UD CAPSULE PO SCH (23:00)
[2017-09-19] MEDS: ATORVASTATIN 20 MG TABLET PO SCH (23:05)
[2017-09-19] MEDS: RANITIDINE HCL 150 MG TABLET PO SCH (23:05)
[2017-09-19] MEDS: LEVEMIR FLEXTOUCH 100 UNIT/ML INSULIN PEN SQ SCH (23:11)
[2017-09-20] MEDS: MEROPENEM 1 GM in 0.9% SODIUM CHLORIDE 50ML 50 ML IVPB SCH ×4 (00:25→23:55)
[2017-09-20] MEDS: OXYCODONE/APAP 10MG-325MG TABLET PO PRN (01:13)
[2017-09-20] MEDS: HYDROCODONE/APAP 5/325MG TABLET PO PRN (04:04)
[2017-09-20 06:16] LABS: BASO % 0.2 % (0-6); EOS % 5.1 % (0-6); GRAN % 67.3 % (47-80); HEMATOCRIT 37.1 % (42.0-52.0); HEMOGLOBIN 11.3 gm/dl (14.0-18.0); LYMPH % 15.6 % (16-45); MEAN CELL VOLUME 90.3 fl (81-97); MEAN CORPUSCULAR HGB CONC 30.5 g/dl (32-36); MEAN PLATELET VOLUME 11.4 fl (7.4-10.4); MONO % 11.8 % (0-9); PLATELET COUNT 180 K/uL (130-400); RED BLOOD COUNT 4.11 M/uL (4.40-5.70); RED CELL DISTRIBUTION WIDTH 15.5 % (11.5-14.5); WHITE BLOOD COUNT W/O DIFF 6.3 K/uL (4.2-12.2)
[2017-09-20 06:24] LABS: MEAN CORPUSCULAR HEMOGLOBIN 27.4 pg (27-33)
[2017-09-20] MEDS: VANCOMYCIN HCL 500 MG in 0.9 % SODIUM CHLORIDE 100ML 100 ML IVPB SCH ×2 (06:26→17:30)
[2017-09-20] MEDS: VANCOMYCIN HCL 750 MG in 0.9 % SODIUM CHLORIDE 250ML 250 ML IVPB SCH ×4 (06:26→21:56)
[2017-09-20] MEDS: LEVOTHYROXINE SODIUM 125 MCG TABLET PO SCH (06:29)
[2017-09-20 07:12] LABS: ALB/GLOB RATIO 1.2 (1.1-1.8); ALBUMIN 3.4 g/dL (4.0-5.0); BILIRUBIN,TOTAL 0.6 mg/dL (0.2-1.0); C-REACTIVE PROTEIN 6.15 mg/dL (<0.5); CREATININE 1.3 mg/dL (0.7-1.2); TOTAL PROTEIN 6.2 g/dL (6.6-8.7)
[2017-09-20] MEDS: POTASSIUM CHLORIDE 20 MEQ TABLET PO SCH ×3 (07:47→22:03)
[2017-09-20] MEDS ORDERED: POTASSIUM CHLORIDE 20 MEQ TABLET PO ONE (07:49)
[2017-09-20] MEDS ORDERED: DIPHENHYDRAMINE HCL 25 MG CAPSULE PO ONE (08:27)
--- NOTE | 2017-09-20 08:30 | Operative Note - [place] ---
DATE OF SURGERY: 09/19/2017. PREOPERATIVE DIAGNOSIS: 1. POSTCERVICAL LAMINECTOMY SYNDROME, ICD-10 CODE M96.1. 2. CERVICAL RADICULITIS, ICD-10 CODE M54.6 AND M54.7. 3. INTRASPINAL OPIOID INFUSION SYSTEM WITH HYDROMORPHONE, VOLUME DEPLETION. POSTOPERATIVE DIAGNOSIS: 1. POSTCERVICAL LAMINECTOMY SYNDROME, ICD-10 CODE M96.1. 2. CERVICAL RADICULITIS, ICD-10 CODE M54.6 AND M54.7. 3. INTRASPINAL OPIOID INFUSION SYSTEM WITH HYDROMORPHONE, VOLUME DEPLETION. OPERATION: 1. Fluoroscopically guided access, central reservoir programmable pump. 2. Aspiration and clearing of pump of 3.0 mL previously placed hydromorphone solution. 3. Physician refill programmable pump, 40 mL hydromorphone 30 mg per mL concentration. 4. Complex reprogramming of spinal opioid infusion system flex dose total 24 hour dose of 5.0 mg 60 percent basal, 40 percent bolus. SURGEON: Micheal Russ D.O. ANESTHESIA: None. Local anesthetic only. INDICATION: This is a patient with a history of a spinal opioid infusion system with volume depletion and a recent postlaminectomy. He is here for an emergency refill of the pump. PROCEDURE: No intravenous line. The patient is currently being infused with antibiotics for a right lower extremity cellulitis. He was taken to the operating room and put into a modified Gonzalez' position with the left side up. Under imaging, the access port to the pump was identified. Local anesthetic. A curved 20-gauge Matias needle was inserted into the central reservoir. A total of 3.0 mL of solution was aspirated, clearing the pump of hydromorphone 30 mg per mL concentration. The pump was then refilled with hydromorphone 30 mg per mL concentration. Total volume refill was 40 mL. The needle was removed. The pump was then programmed in a flex dose 60 percent basal, 40 percent bolus, a total of 24 hours worth of doses at 5.0 mg per day. The area was cleaned. He was transported back to his bed and was then transported back to the floor stable, showing no side effects from the procedure. The patient is inhouse and will stay in house. He will be evaluated over the next several days. JOB NUMBER: [id number] cc: Lorene Suarez
[2017-09-20] MEDS ORDERED: POLYETHYLENE GLY 17 GM PACKET PO PRN (09:42)
[2017-09-20] MEDS: BREO (FLUTICASONE/VILANTEROL) 100MCG/25MCG INHALER INH SCH (10:07)
--- NOTE | 2017-09-20 10:17 | ULTRASOUND REPORT ---
EXAM: ULTRASOUND EXTREMITY, LOWER HISTORY: FLUCTUANT MASS RIGHT THIGH, CELLULITIS. COMPARISON: None. TECHNIQUE: Real-time schilling scale sonographic imaging in the right thigh was performed. FINDINGS: There is subcutaneous hypoechogenicity consistent with edema or cellulitis. An incisional scar is evident. No discrete fluid collection or abscess. IMPRESSION: EDEMA OR CELLULITIS OF THE RIGHT THIGH. NO FLUID COLLECTION OR ABSCESS. JOB NUMBER: [id number] [facility]
[2017-09-20] MEDS: ENOXAPARIN 40 MG/0.4 ML SYR SQ SCH (10:20)
[2017-09-20] MEDS: HEPARIN SODIUM FLUSH 100 UNITS/ML SYR 5ML IVP SCH ×2 (10:20→22:00)
[2017-09-20] MEDS: 0.9 % SODIUM CHLORIDE 10ML SYR IVP SCH ×2 (10:21→22:06)
[2017-09-20] MEDS: BIFIDOBACTERIUM INFANTIS 4 MG CAPSULE PO SCH (10:21)
--- NOTE | 2017-09-20 10:21 | US VENOUS DOPPLER REPORT ---
EXAM: ULTRASOUND VENOUS DOPPLER LOWER EXT RT HISTORY: PAIN IN LEG, LUMP RIGHT LOWER EXTREMITY. COMPARISON: Venous Doppler ultrasound right leg 03/26/17. TECHNIQUE: Real-time schilling scale sonographic imaging of the right lower extremity deep venous system was performed with duplex Doppler and spectral analysis. FINDINGS: Normal color-flow and compressibility in the following vessels: right greater saphenous vein, right common femoral vein, right superficial femoral vein, right profunda femoral vein, right popliteal vein, right peroneal vein, right anterior tibial vein, right posterior tibial vein. Normal respiratory phasicity and venous waveforms in the right common femoral vein. IMPRESSION: NEGATIVE FOR RIGHT LOWER EXTREMITY DVT. JOB NUMBER: [id number] [facility]
[2017-09-20] MEDS: MULTIVITAMINS/MINERALS TABLET PO SCH (10:25)
[2017-09-20] MEDS: BUMETANIDE 1 MG TABLET PO SCH ×2 (10:25→16:33)
[2017-09-20] MEDS: TAMSULOSIN HCL 0.4 MG CAP.ER.24H PO SCH (10:26)
[2017-09-20] MEDS: CHOLECALCIFEROL 1,000 UNIT TABLET PO SCH (10:27)
[2017-09-20] MEDS: FERROUS SULFATE 325 MG TAB PO SCH (10:28)
[2017-09-20] MEDS: ASCORBIC ACID 500 MG TAB PO SCH ×2 (10:28→22:04)
[2017-09-20] MEDS: MAGNESIUM OXIDE 400 MG TABLET PO SCH (10:29)
[2017-09-20] MEDS: AMIODARONE HCL 200 MG TABLET PO SCH (10:30)
[2017-09-20] MEDS: METOLAZONE 2.5 MG TABLET PO SCH ×2 (10:30→11:00)
[2017-09-20] MEDS: METOPROLOL TART 25 MG TABLET PO SCH ×3 (10:35→22:05)
[2017-09-20] MEDS: LEVOFLOXACIN/D5W 750 MG/150 ML BAG IVPB SCH (10:42)
[2017-09-20] MEDS: OXYCODONE HCL/APAP 5MG/325MG TABLET PO PRN (14:32)
[2017-09-20 16:10] LABS: CREATININE 1.4 mg/dL (0.7-1.2)
[2017-09-20] MEDS: RANITIDINE HCL 150 MG TABLET PO SCH (22:03)
[2017-09-20] MEDS: LEVEMIR FLEXTOUCH 100 UNIT/ML INSULIN PEN SQ SCH (22:04)
[2017-09-20] MEDS: ATORVASTATIN 20 MG TABLET PO SCH (22:04)
[2017-09-20] MEDS: SENNOSIDES/DOCUSATE SODIUM UD CAPSULE PO SCH (22:05)
[2017-09-21] MEDS: OXYCODONE/APAP 10MG-325MG TABLET PO PRN ×3 (01:03→23:06)
[2017-09-21] MEDS: VANCOMYCIN HCL 500 MG in 0.9 % SODIUM CHLORIDE 100ML 100 ML IVPB SCH ×2 (05:58→18:18)
[2017-09-21] MEDS: LEVOTHYROXINE SODIUM 125 MCG TABLET PO SCH (06:13)
[2017-09-21 06:26] LABS: BASO % 0.2 % (0-6); EOS % 6.6 % (0-6); GRAN % 60.2 % (47-80); HEMATOCRIT 36.3 % (42.0-52.0); HEMOGLOBIN 10.9 gm/dl (14.0-18.0); LYMPH % 19.5 % (16-45); MEAN CORPUSCULAR HEMOGLOBIN 27.3 pg (27-33); MONO % 13.5 % (0-9); PLATELET COUNT 173 K/uL (130-400); RED BLOOD COUNT 3.99 M/uL (4.40-5.70); RED CELL DISTRIBUTION WIDTH 15.4 % (11.5-14.5); WHITE BLOOD COUNT W/O DIFF 5.2 K/uL (4.2-12.2)
[2017-09-21 06:37] LABS: ALB/GLOB RATIO 1.1 (1.1-1.8); ALBUMIN 3.2 g/dL (4.0-5.0); BILIRUBIN,TOTAL 0.4 mg/dL (0.2-1.0); C-REACTIVE PROTEIN 3.23 mg/dL (<0.5); CREATININE 1.4 mg/dL (0.7-1.2); TOTAL PROTEIN 6.1 g/dL (6.6-8.7)
[2017-09-21] MEDS: BREO (FLUTICASONE/VILANTEROL) 100MCG/25MCG INHALER INH SCH (06:55)
[2017-09-21] MEDS ORDERED: POTASSIUM CHLORIDE 20 MEQ TABLET PO ONE (07:46)
[2017-09-21] MEDS: MEROPENEM 1 GM in 0.9% SODIUM CHLORIDE 50ML 50 ML IVPB SCH ×2 (08:05→16:32)
--- NOTE | 2017-09-21 08:22 | Physician Progress Note ---
Subjective - Date Date of Physician Progress Note: 09/20/17 - Subjective Subjective Comment: 09/20/17- Patient continues to improve. He says his neck is still his biggest concern but the pain is getting better controlled with the soft collar, pain pump and oral pain medication. He says his leg is about the same as yesterday but not worse. He now reports significant amount of frequent loose stool starting last night. He also had some redness of the right hand during his vancomycin infusion. The redness resolved about an hour after the infusion. He denies shortness of breath or cough today. Has been up ambulating with his walker without assistance. Objective - Vital Signs Vital Signs: Vital Signs - Last 24 Hrs Temp Pulse Pulse Pulse Resp BP Pulse Ox 09/21/17 06:59 61 16 97 09/21/17 06:00 98.0 F 74 18 110/73 97 09/20/17 23:58 97.7 F 72 16 108/67 97 09/20/17 21:00 70 70 18 09/20/17 20:00 97.5 F L 73 18 104/59 97 09/20/17 16:00 96.9 F L 76 18 91/57 98 09/20/17 12:00 97.3 F L 76 18 102/58 99 - General General Appearance: Alert, Oriented x3, Cooperative, No acute distress Limitations: Physical limitation (neck in soft collar due to recent surgery ) - Head Head exam: Atraumatic, Normocephalic, Normal inspection Head exam detail: negative: Abrasion, Contusion - Eye Eye exam: Normal appearance, PERRL, EOMI - ENT ENT exam: Normal exam, Mucous membranes moist, Normal external ear exam, Normal orophraynx, TM's normal bilaterally - Neck Neck exam: Tenderness (along incision). negative: Full ROM (due to recent surgery) - Respiratory Respiratory exam: Decreased breath sounds (left lower lobe), Prolonged expiratory. negative: Accessory muscle use, Respiratory distress - Cardiovascular Cardiovascular Exam: Regular rate, Normal rhythm (paced), Systolic murmur - GI/Abdominal GI/Abdominal exam: Soft, Normal bowel sounds. negative: Tenderness - Extremities Extremities exam: Normal inspection, Full ROM, Normal capillary refill, Pedal edema. negative: Tenderness - Neurological Neurological exam: Abnormal gait (walks with walker; needs assistance), Alert, Oriented X3, Reflexes normal - Psychiatric Psychiatric exam: Normal affect, Normal mood - Skin Skin exam: Erythema (erythema continues to recede within marked borders. no areas of fluctuance or open lesions.) Assessment and Plan - Assessment and Plan (1) Cellulitis Current Visit: No Status: Acute Qualifiers: Site of cellulitis: extremity Site of cellulitis of extremity: lower extremity Laterality: right Qualified Code(s): L03.115 - Cellulitis of right lower limb Base Code: L03.90 - CELLULITIS, UNSPECIFIED Comment: 09/20/17- erthyema continues to improve. patient has h/o mrsa and sepsis. PICC line in place. Doppler neagtive for DVT and targeted u/s showed some nonspecific inflammation with no evidence of fluid collection. -MRSA PCR still pending -WBC count down to 5.2 today; CRP trending downward 19 to 9.9 to 3.2 today. -BP mproving up to 113/71 and temp has been wnl range. will restart lopressor at 12.5mg po bid and continue to monitor -prelim blood cultures were negative -conitnue vanc, meropenum, and levaquin dosed by pharmacy. -vitals q8H -repeat labs qam (2) Healthcare-associated pneumonia Current Visit: No Status: Acute Base Code: J18.9 - PNEUMONIA, UNSPECIFIED ORGANISM Comment: 09/20/17 - improved. 99% on room air and denies shortness of breath. states cough has resolved -sputum culture prelim showing gramp positive cocci and gram positive rods -blood cultures prelim show no growth to date -continue on meropenum, levaquin, and vanc to cover for h/o MRSA, HAP, and possible aspiration with recent intubation. -continue O2 at 2L via NC to keep sats >92% -continue incentive spirometry -vitals q8H -repeat labs qam (3) Diarrhea Current Visit: Yes Status: Acute Base Code: R19.7 - DIARRHEA, UNSPECIFIED Comment: 09/20/17- patient started having loose stool last evening. Likely 2/2 antibiotic use. -stool study for c.diff ordered -add daily probiotic -if stool negative for c.diff may start immodium (4) Degenerative disc disease, cervical Current Visit: No Status: Acute Base Code: M50.30 - OTHER CERVICAL DISC DEGENERATION, UNSP CERVICAL REGION Comment: 09/20/17- s/p cervical laminectomy with bilateral foraminotomies C2-3. POD #9. incision with edges well approximated and no evidence of cellulitis. -pain control continues to be somehwat effective. Says the pain pump has helped with is lower back. -continue percocet 5/325mg po q4H (5) Physical deconditioning Current Visit: No Status: Acute Base Code: R53.81 - OTHER MALAISE Comment : 09/20/17- s/p cervical laminectomy wtih bilateral foraminotomies C2-3 - follow up with neurosurgery as scheduled - continue PT/OT -will resume TAWANA once stabilized (6) DVT prophylaxis Current Visit: No Status: Acute Base Code: [id number] - Comment: 09/20/17- Coumadin management for DVt prophylaxis and chronic anticoagulation therapy for history of PAF s/p CV - bridge to coumadin until INR therapeutic - pharmacy to dose - serial INR (7) Full code status Current Visit: No Status: Acute Base Code: Z78.9 - OTHER SPECIFIED HEALTH STATUS Comment: 09/20/17 will remain full code Results - Labs Result Diagrams: 09/21/17 06:10 09/21/17 06:10 Labs Last 24 Hours: Laboratory Results - last 24 hr 09/20/17 09/20/17 09/20/17 14:15 15:55 22:02 WBC RBC Hgb Hct MCV MCH MCHC RDW Plt Count MPV Gran % Lymphocytes % Monocytes % Eosinophils % Basophils % Sodium 139 Potassium 3.1 L Chloride 92 L Carbon Dioxide 38.0 H Anion Gap 9.0 BUN 22 Creatinine 1.4 H Estimated GFR 52 POC Glucose 212 H Random Glucose 185 H Calcium 8.9 Magnesium 1.5 L Total Bilirubin AST ALT Alkaline Phosphatase C-Reactive Protein Total Protein Albumin Globulin Albumin/Globulin Ratio C. difficile Ag & Toxin Not detected 09/21/17 09/21/17 06:10 06:10 WBC 5.2 RBC 3.99 L Hgb 10.9 L Hct 36.3 L MCV 91.0 MCH 27.3 MCHC 30.0 L RDW 15.4 H Plt Count 173 MPV 11.0 H Gran % 60.2 Lymphocytes % 19.5 Monocytes % 13.5 H Eosinophils % 6.6 H Basophils % 0.2 Sodium 140 Potassium 3.0 L Chloride 92 L Carbon Dioxide 40.0 H Anion Gap 8.0 BUN 22 Creatinine 1.4 H Estimated GFR 52 POC Glucose Random Glucose 140 H Calcium 9.1 Magnesium Total Bilirubin 0.40 AST 22 ALT 20 Alkaline Phosphatase 71 C-Reactive Protein 3.23 H Total Protein 6.1 L Albumin 3.2 L Globulin 2.9 Albumin/Globulin Ratio 1.1 C. difficile Ag & Toxin DVT/PE Assessment - Risk for VTE Risk for VTE: No Risk Level: High Risk Assessment Date: 09/17/17 Risk Assessment Time: 10:30 VTE Orders Placed or Will Be Placed: Yes - Active Medicaitons Current Medications: Current Medications Acetaminophen (Tylenol 500mg Tab) 1,000 mg PO Q6H PRN PRN Reason: Fever GT 101/Headache Last Admin: 09/18/17 06:40 Dose: 1,000 mg Albuterol Sulfate () 2.5 mg INH RESP.Q6H PRN PRN Reason: DIFFICULTY IN BREATHING Amiodarone HCl (Pacerone) 200 mg PO DAILY [facility] Last Admin: 09/20/17 10:30 Dose: 200 mg Ascorbic Acid (Vitamin C) 1,000 mg PO BID [facility] Last Admin: 09/20/17 22:04 Dose: 1,000 mg Atorvastatin Calcium (Lipitor) 20 mg PO QHS [facility] Last Admin: 09/20/17 22:04 Dose: 20 mg Bumetanide (Bumex) 2 mg PO BIDDIUR [facility] Last Admin: 09/20/17 16:33 Dose: 2 mg Clotrimazole (Lotrisone) 0.5 gm TOP BID PRN PRN Reason: RASH Diazepam (Valium) 5 mg PO Q6HR PRN PRN Reason: MUSCLE SPASMS Enoxaparin Sodium (Lovenox) 40 mg SQ DAILY [facility] Last Admin: 09/20/17 10:20 Dose: 40 mg Ferrous Sulfate (Iron) 325 mg PO DAILY [facility] Last Admin: 09/20/17 10:28 Dose: 325 mg Heparin Sodium (Porcine) () 500 unit IVP BID [facility] Last Admin: 09/20/17 22:00 Dose: 500 unit Levofloxacin/Dextrose (Levaquin 750mg Ivpb) 750 mg in 150 mls @ 125 mls/hr IVPB Q24H [facility] Stop: 09/23/17 10:01 Last Infusion: 09/20/17 14:23 Dose: Infused Meropenem 1 gm/ Sodium (Chloride) 50 mls @ 100 mls/hr IVPB Q8H [facility] Last Admin: 09/21/17 08:05 Dose: 100 mls/hr Vancomycin HCl 500 mg/ Sodium (Chloride) 100 mls @ 200 mls/hr IVPB Q12H [facility] Stop: 09/23/17 18:01 Last Infusion: 09/21/17 07:09 Dose: Infused Vancomycin HCl 750 mg/ Sodium (Chloride) 250 mls @ 333.333 mls/hr IVPB Q12H [facility] Last Admin: 09/20/17 21:56 Dose: Not Given Insulin Detemir (Levemir Flextouch) 6 unit SQ QHS [facility] Last Admin: 09/20/17 22:04 Dose: 6 unit [facility]othy[facility]ine [facility] ([facility]) [facility] Last Admin: 09/21/17 06:13 Dose: 125 mcg Loperamide HCl (Immodium) 2 mg PO Q4H PRN PRN Reason: Diarrhea Magnesium Oxide (Mag Ox) 400 mg PO DAILY [facility] Last Admin: 09/20/17 10:29 Dose: 400 mg Metolazone (Zaroxolyn) 2.5 mg PO DAILY [facility] Last Admin: 09/20/17 11:00 Dose: Not Given Metoprolol Tartrate (Lopressor) 12.5 mg PO BID [facility] Last Admin: 09/20/17 22:05 Dose: Not Given Multivitamins/Minerals (Centrum) 1 tab PO DAILY [facility] Last Admin: 09/20/17 10:25 Dose: 1 tab Oxycodone/Acetaminophen (Percocet 5-325 Mg Tablet) 1 udtab PO Q6H PRN PRN Reason: Pain - Moderate (5-7) Stop: 09/25/17 13:50 Last Admin: 09/20/17 14:32 Dose: 1 udtab Oxycodone/Acetaminophen (Percocet 10-325 Mg Tablet) 1 each PO Q4H PRN PRN Reason: Pain - General Last Admin: 09/21/17 01:03 Dose: 1 each Polyethylene Glycol (Miralax) 17 gm PO QHS PRN PRN Reason: Constipation Potassium Chloride (Klor-Con) 20 meq PO BID [facility] Last Admin: 09/20/17 22:03 Dose: 20 meq Ranitidine HCl (Zantac) 150 mg PO QHS [facility] Last Admin: 09/20/17 22:03 Dose: 150 mg Senna/Docusate Sodium (Senna Plus) 2 each PO QHS [facility] Last Admin: 09/20/17 22:05 Dose: Not Given Sodium Chloride () 10 ml IVP BID [facility] Last Admin: 09/20/17 22:06 Dose: 10 ml Tamsulosin HCl (Flomax) 0.4 mg PO DAILY [facility] Last Admin: 09/20/17 10:26 Dose: 0.4 mg Tramadol HCl (Ultram) 50 mg PO Q8H PRN PRN Reason: Pain - General Last Admin: 09/19/17 08:39 Dose: 50 mg Vitamin D (Vitamin D3) 5,000 unit PO DAILY [facility] Last Admin: 09/20/17 10:27 Dose: 5,000 unit Warfarin S[facility] (C[facility]madin) [facility]in[facility] Plan - Labs Result Diagrams: 09/21/17 06:10 09/21/17 06:10
[2017-09-21] MEDS: 0.9 % SODIUM CHLORIDE 10ML SYR IVP SCH ×3 (08:46→22:12)
[2017-09-21] MEDS: CHOLECALCIFEROL 1,000 UNIT TABLET PO SCH (11:22)
[2017-09-21] MEDS: BIFIDOBACTERIUM INFANTIS 4 MG CAPSULE PO SCH (11:26)
[2017-09-21] MEDS: MULTIVITAMINS/MINERALS TABLET PO SCH (11:27)
[2017-09-21] MEDS: FERROUS SULFATE 325 MG TAB PO SCH (11:27)
[2017-09-21] MEDS: TAMSULOSIN HCL 0.4 MG CAP.ER.24H PO SCH (11:27)
[2017-09-21] MEDS: BUMETANIDE 1 MG TABLET PO SCH ×2 (11:27→16:34)
[2017-09-21] MEDS: HEPARIN SODIUM FLUSH 100 UNITS/ML SYR 5ML IVP SCH ×2 (11:29→22:13)
[2017-09-21] MEDS: LEVOFLOXACIN/D5W 750 MG/150 ML BAG IVPB SCH ×2 (11:29→13:36)
[2017-09-21] MEDS: POTASSIUM CHLORIDE 20 MEQ TABLET PO SCH ×2 (11:29→22:14)
[2017-09-21] MEDS: METOPROLOL TART 25 MG TABLET PO SCH ×2 (11:30→22:14)
[2017-09-21] MEDS: ASCORBIC ACID 500 MG TAB PO SCH ×2 (11:31→22:13)
[2017-09-21] MEDS: MAGNESIUM OXIDE 400 MG TABLET PO SCH (11:31)
[2017-09-21] MEDS: ENOXAPARIN 40 MG/0.4 ML SYR SQ SCH (11:31)
[2017-09-21] MEDS: METOLAZONE 2.5 MG TABLET PO SCH ×2 (11:31→15:46)
[2017-09-21] MEDS: AMIODARONE HCL 200 MG TABLET PO SCH (11:31)
[2017-09-21] MEDS ORDERED: DIPHENHYDRAMINE HCL 25 MG CAPSULE PO ONE (11:40)
[2017-09-21] MEDS ORDERED: LEVOFLOXACIN/D5W 750 MG/150 ML BAG IVPB SCH (12:00)
[2017-09-21] MEDS: VANCOMYCIN HCL 750 MG in 0.9 % SODIUM CHLORIDE 250ML 250 ML IVPB SCH ×2 (13:38→21:01)
--- NOTE | 2017-09-21 20:45 | Physician Progress Note ---
Subjective - Date Date of Physician Progress Note: 09/21/17 - Subjective Subjective Comment: 09/21/17- Patient states he is feeling much better today. He says his appetite has improved as has his overall strength. He has been up ambulating independently with waker down the [address] way. He says his right leg looks less red and he has had improvement in the loose stools he was having yesterday. He denies any shortness of breath or cough. Says his chronic right hip and low back pain have improved since having his pain pump refilled. His neck pain has improved some. He is down from a constant 10 to a 6. He is due to have his sutures removed. Objective - Vital Signs Vital Signs: Vital Signs - Last 24 Hrs Temp Pulse Pulse Pulse Resp BP Pulse Ox 09/21/17 20:23 97.5 F L 72 18 119/73 97 09/21/17 18:00 97.3 F L 71 18 98/54 95 09/21/17 14:00 97.1 F L 72 18 97/63 98 09/21/17 11:30 103/64 09/21/17 10:00 97.3 F L 73 18 109/61 98 09/21/17 09:00 72 73 18 09/21/17 06:59 61 16 97 09/21/17 06:00 98.0 F 74 18 110/73 97 09/20/17 23:58 97.7 F 72 16 108/67 97 09/20/17 21:00 70 70 18 - General General Appearance: Alert, Oriented x3, Cooperative, No acute distress Limitations: Physical limitation (neck in soft collar due to recent surgery ) - Head Head exam: Atraumatic, Normocephalic, Normal inspection Head exam detail: negative: Abrasion, Contusion - Eye Eye exam: Normal appearance, PERRL, EOMI - ENT ENT exam: Normal exam, Mucous membranes moist, Normal external ear exam, Normal orophraynx, TM's normal bilaterally - Neck Neck exam: Tenderness (along incision). negative: Full ROM (due to recent surgery) - Respiratory Respiratory exam: Decreased breath sounds (left lower lobe), Prolonged expiratory. negative: Accessory muscle use, Respiratory distress - Cardiovascular Cardiovascular Exam: Regular rate, Normal rhythm (paced), Systolic murmur - GI/Abdominal GI/Abdominal exam: Soft, Normal bowel sounds. negative: Tenderness - Extremities Extremities exam: Normal inspection, Full ROM, Normal capillary refill, Pedal edema. negative: Tenderness - Neurological Neurological exam: Abnormal gait (walks with walker; needs assistance), Alert, Oriented X3, Reflexes normal - Psychiatric Psychiatric exam: Normal affect, Normal mood - Skin Skin exam: Erythema (erythema now limited to lower half of right calf. no areas of fluctuance or open lesions.) Assessment and Plan - Assessment and Plan (1) Cellulitis Current Visit: No Status: Acute Qualifiers: Site of cellulitis: extremity Site of cellulitis of extremity: lower extremity Laterality: right Qualified Code(s): L03.115 - Cellulitis of right lower limb Base Code: L03.90 - CELLULITIS, UNSPECIFIED Comment: 09/21/17- erthyema continues to improve and now limited to lower half of right calf and [place]. patient has h/o mrsa and sepsis. PICC line in place. Doppler neagtive for DVT and targeted u/s showed some nonspecific inflammation with no evidence of fluid collection. -MRSA PCR still pending -WBC count down to 5.2 today; CRP trending downward 19 to 9.9 to 3.2 today. -BP mproving up to 113/71 and temp has been wnl range. continue lopressor at 12.5mg po bid and continue to monitor -prelim blood cultures were negative -conitnue vanc, meropenum, and levaquin dosed by pharmacy. last day of levaquin -vitals q8H -repeat labs qam (2) Healthcare-associated pneumonia Current Visit: No Status: Acute Base Code: J18.9 - PNEUMONIA, UNSPECIFIED ORGANISM Comment: 09/21/17 - improved. 99% on room air and denies shortness of breath. states cough has resolved. CXR for picc placement showed clear lung sykes -sputum culture prelim showing gramp positive cocci and gram positive rods -blood cultures prelim show no growth to date -continue on meropenum, levaquin, and vanc to cover for h/o MRSA, HAP, and possible aspiration with recent intubation. -continue O2 at 2L via NC to keep sats >92% -continue incentive spirometry -vitals q8H -repeat labs qam (3) Diarrhea Current Visit: Yes Status: Acute Base Code: R19.7 - DIARRHEA, UNSPECIFIED Comment: 09/21/17- improved. Likely 2/2 antibiotic use. -stool study for c.diff negative -continue daily probiotic (4) Degenerative disc disease, cervical Current Visit: No Status: Acute Base Code: M50.30 - OTHER CERVICAL DISC DEGENERATION, UNSP CERVICAL REGION Comment: 09/21/17- s/p cervical laminectomy with bilateral foraminotomies C2-3. POD #10. incision with edges well approximated and no evidence of cellulitis. Removed running suture today without issue and patient tolerated this well. the incision was covered with nonadhesive layer and ABD pad. -pain control continues to be somehwat effective. Says the pain pump has helped with is lower back. -continue percocet 5/325mg po q4H (5) Physical deconditioning Current Visit: No Status: Acute Base Code: R53.81 - OTHER MALAISE Comment : 09/21/17- improving. walked 25 feet down the bran and back independently with waker. s/p cervical laminectomy wtih bilateral foraminotomies C2-3 - follow up with neurosurgery as scheduled - continue PT/OT -will resume TAWANA once stabilized (6) DVT prophylaxis Current Visit: No Status: Acute Base Code: [id number] - Comment: 09/21/17- Coumadin management for DVt prophylaxis and chronic anticoagulation therapy for history of PAF s/p CV - bridge to coumadin until INR therapeutic - pharmacy to dose - serial INR (7) Full code status Current Visit: No Status: Acute Base Code: Z78.9 - OTHER SPECIFIED HEALTH STATUS Comment: 09/21/17 will remain full code Results - Labs Result Diagrams: 09/21/17 06:10 09/21/17 06:10 Labs Last 24 Hours: Laboratory Results - last 24 hr 09/20/17 09/21/17 09/21/17 22:02 06:10 06:10 WBC 5.2 RBC 3.99 L Hgb 10.9 L Hct 36.3 L MCV 91.0 MCH 27.3 MCHC 30.0 L RDW 15.4 H Plt Count 173 MPV 11.0 H Gran % 60.2 Lymphocytes % 19.5 Monocytes % 13.5 H Eosinophils % 6.6 H Basophils % 0.2 Sodium 140 Potassium 3.0 L Chloride 92 L Carbon Dioxide 40.0 H Anion Gap 8.0 BUN 22 Creatinine 1.4 H Estimated GFR 52 POC Glucose 212 H Random Glucose 140 H Calcium 9.1 Total Bilirubin 0.40 AST 22 ALT 20 Alkaline Phosphatase 71 C-Reactive Protein 3.23 H Total Protein 6.1 L Albumin 3.2 L Globulin 2.9 Albumin/Globulin Ratio 1.1 DVT/PE Assessment - Risk for VTE Risk for VTE: No Risk Level: High Risk Assessment Date: 09/17/17 Risk Assessment Time: 10:30 VTE Orders Placed or Will Be Placed: Yes - Active Medicaitons Current Medications: Current Medications Acetaminophen (Tylenol 500mg Tab) 1,000 mg PO Q6H PRN PRN Reason: Fever GT 101/Headache Last Admin: 09/18/17 06:40 Dose: 1,000 mg Albuterol Sulfate () 2.5 mg INH RESP.Q6H PRN PRN Reason: DIFFICULTY IN BREATHING Amiodarone HCl (Pacerone) 200 mg PO DAILY [facility] Last Admin: 09/21/17 11:31 Dose: 200 mg Ascorbic Acid (Vitamin C) 1,000 mg PO BID [facility] Last Admin: 09/21/17 11:31 Dose: 1,000 mg Atorvastatin Calcium (Lipitor) 20 mg PO QHS [facility] Last Admin: 09/20/17 22:04 Dose: 20 mg Bumetanide (Bumex) 2 mg PO BIDDIUR [facility] Last Admin: 09/21/17 16:34 Dose: 2 mg Clotrimazole (Lotrisone) 0.5 gm TOP BID PRN PRN Reason: RASH Diazepam (Valium) 5 mg PO Q6HR PRN PRN Reason: MUSCLE SPASMS Enoxaparin Sodium (Lovenox) 40 mg SQ DAILY [facility] Last Admin: 09/21/17 11:31 Dose: 40 mg Ferrous Sulfate (Iron) 325 mg PO DAILY [facility] Last Admin: 09/21/17 11:27 Dose: 325 mg Heparin Sodium (Porcine) () 500 unit IVP BID [facility] Last Admin: 09/21/17 11:29 Dose: 500 unit Meropenem 1 gm/ Sodium (Chloride) 50 mls @ 100 mls/hr IVPB Q8H [facility] Last Infusion: 09/21/17 19:26 Dose: Infused Levofloxacin/Dextrose (Levaquin 750mg Ivpb) 750 mg in 150 mls @ 125 mls/hr IVPB Q24H [facility] Stop: 09/26/17 12:01 Last Infusion: 09/21/17 19:26 Dose: Infused Vancomycin HCl 500 mg/ Sodium (Chloride) 100 mls @ 100 mls/hr IVPB Q12H [facility] Stop: 09/26/17 18:01 Last Infusion: 09/21/17 19:26 Dose: Infused Vancomycin HCl 750 mg/ Sodium (Chloride) 250 mls @ 150 mls/hr IVPB Q12H [facility] Insulin Detemir (Levemir Flextouch) 6 unit SQ QHS [facility] Last Admin: 09/20/17 22:04 Dose: 6 unit [facility]othy[facility]ine [facility]) [facility] Last Admin: 09/21/17 06:13 Dose: 125 mcg Loperamide HCl (Immodium) 2 mg PO Q4H PRN PRN Reason: Diarrhea Magnesium Oxide (Mag Ox) 400 mg PO DAILY [facility] Last Admin: 09/21/17 11:31 Dose: 400 mg Metolazone (Zaroxolyn) 2.5 mg PO DAILY [facility] Last Admin: 09/21/17 15:46 Dose: Not Given Metoprolol Tartrate (Lopressor) 12.5 mg PO BID [facility] Last Admin: 09/21/17 11:30 Dose: 12.5 mg Multivitamins/Minerals (Centrum) 1 tab PO DAILY [facility] Last Admin: 09/21/17 11:27 Dose: 1 tab Oxycodone/Acetaminophen (Percocet 5-325 Mg Tablet) 1 udtab PO Q6H PRN PRN Reason: Pain - Moderate (5-7) Stop: 09/25/17 13:50 Last Admin: 09/20/17 14:32 Dose: 1 udtab Oxycodone/Acetaminophen (Percocet 10-325 Mg Tablet) 1 each PO Q4H PRN PRN Reason: Pain - General Last Admin: 09/21/17 12:45 Dose: 1 each Polyethylene Glycol (Miralax) 17 gm PO QHS PRN PRN Reason: Constipation Potassium Chloride (Klor-Con) 20 meq PO BID [facility] Last Admin: 09/21/17 11:29 Dose: 20 meq Ranitidine HCl (Zantac) 150 mg PO QHS [facility] Last Admin: 09/20/17 22:03 Dose: 150 mg Senna/Docusate Sodium (Senna Plus) 2 each PO QHS [facility] Last Admin: 09/20/17 22:05 Dose: Not Given Sodium Chloride () 10 ml IVP BID [facility] Last Admin: 09/21/17 11:22 Dose: 10 ml Tamsulosin HCl (Flomax) 0.4 mg PO DAILY [facility] Last Admin: 09/21/17 11:27 Dose: 0.4 mg Tramadol HCl (Ultram) 50 mg PO Q8H PRN PRN Reason: Pain - General Last Admin: 09/19/17 08:39 Dose: 50 mg Vitamin D (Vitamin D3) 5,000 unit PO DAILY [facility] Last Admin: 09/21/17 11:22 Dose: 5,000 unit Warfarin Sodium (Coumadin) [facility] S[facility] (Coumadin) [facility] AMI Plan - Labs Result Diagrams: 09/21/17 06:10 09/21/17 06:10
[2017-09-21] MEDS: SENNOSIDES/DOCUSATE SODIUM UD CAPSULE PO SCH (22:13)
[2017-09-21] MEDS: LEVEMIR FLEXTOUCH 100 UNIT/ML INSULIN PEN SQ SCH (22:13)
[2017-09-21] MEDS: ATORVASTATIN 20 MG TABLET PO SCH (22:14)
[2017-09-21] MEDS: RANITIDINE HCL 150 MG TABLET PO SCH (22:15)
[2017-09-22] MEDS: MEROPENEM 1 GM in 0.9% SODIUM CHLORIDE 50ML 50 ML IVPB SCH ×2 (00:10→08:19)
[2017-09-22] MEDS: LEVOTHYROXINE SODIUM 125 MCG TABLET PO SCH (06:07)
[2017-09-22] MEDS: VANCOMYCIN HCL 500 MG in 0.9 % SODIUM CHLORIDE 100ML 100 ML IVPB SCH (06:08)
[2017-09-22 06:46] LABS: BASO % 0.4 % (0-6); EOS % 6.8 % (0-6); GRAN % 63.1 % (47-80); HEMATOCRIT 36.1 % (42.0-52.0); MEAN CELL VOLUME 90.3 fl (81-97); MEAN CORPUSCULAR HEMOGLOBIN 27.5 pg (27-33); MEAN CORPUSCULAR HGB CONC 30.5 g/dl (32-36); MONO % 11.7 % (0-9); PLATELET COUNT 167 K/uL (130-400); RED CELL DISTRIBUTION WIDTH 15.3 % (11.5-14.5); WHITE BLOOD COUNT W/O DIFF 6.7 K/uL (4.2-12.2)
[2017-09-22 07:05] LABS: ALB/GLOB RATIO 1.1 (1.1-1.8); ALBUMIN 3.3 g/dL (4.0-5.0); BILIRUBIN,TOTAL 0.5 mg/dL (0.2-1.0); C-REACTIVE PROTEIN 2.02 mg/dL (<0.5); CREATININE 1.5 mg/dL (0.7-1.2); TOTAL PROTEIN 6.3 g/dL (6.6-8.7)
--- NOTE | 2017-09-22 07:06 | Discharge Summary ---
Providers Discharge Summary Date: 09/22/17 Date of admission: 09/17/17 10:25 Expected Date of Discharge: 09/22/17 Attending physician: Alejo Agosto Primary care physician: Alejo Agosto Physical Exam - Vital Signs Vital Signs: Vital Signs - Last 24 Hrs Temp Pulse Pulse Resp BP Pulse Ox 09/22/17 05:37 97.9 F 74 18 118/71 97 09/21/17 23:36 97.6 F 71 20 113/68 96 09/21/17 21:00 70 70 18 09/21/17 20:23 97.5 F L 72 18 119/73 97 09/21/17 18:00 97.3 F L 71 18 98/54 95 09/21/17 14:00 97.1 F L 72 18 97/63 98 09/21/17 11:30 103/64 09/21/17 10:00 97.3 F L 73 18 109/61 98 09/21/17 09:00 72 73 18 - General General Appearance: Alert, Oriented x3, Cooperative, No acute distress Limitations: Physical limitation (neck in soft collar due to recent surgery ) - Head Head exam: Atraumatic, Normocephalic, Normal inspection Head exam detail: negative: Abrasion, Contusion - Eye Eye exam: Normal appearance, PERRL, EOMI - ENT ENT exam: Normal exam, Mucous membranes moist, Normal external ear exam, Normal orophraynx, TM's normal bilaterally - Neck Neck exam: Tenderness (along incision). negative: Full ROM (due to recent surgery) - Respiratory Respiratory exam: Decreased breath sounds (left lower lobe), Prolonged expiratory. negative: Accessory muscle use, Respiratory distress - Cardiovascular Cardiovascular Exam: Regular rate, Normal rhythm (paced), Systolic murmur - GI/Abdominal GI/Abdominal exam: Soft, Normal bowel sounds. negative: Tenderness - Extremities Extremities exam: Normal inspection, Full ROM, Normal capillary refill, Pedal edema. negative: Tenderness - Neurological Neurological exam: Abnormal gait (walks with walker; needs assistance), Alert, Oriented X3, Reflexes normal - Psychiatric Psychiatric exam: Normal affect, Normal mood - Skin Skin exam: Erythema (erythema now limited to lower half of right calf. no areas of fluctuance or open lesions.) Hospitalization - Hospitalization Admission Diagnosis: cellulitis, LLL pneumonia - Problem List/Discharge Diagnosis (1) Cellulitis Current Visit: No Status: Acute Discharge Diagnosis: Site of cellulitis: extremity Site of cellulitis of extremity: lower extremity Laterality: right Qualified Code(s): L03.115 - Cellulitis of right lower limb Base Code: L03.90 - CELLULITIS, UNSPECIFIED Comment: 09/22/17- erthyema continues to improve and now limited to lower half of right calf and [place]. patient has h/o mrsa and sepsis. PICC line in place. Doppler neagtive for DVT and targeted u/s showed some nonspecific inflammation with no evidence of fluid collection. -MRSA PCR still pending -WBC count down to 5.2 today; CRP trending downward 19 to 9.9 to 3.2 to 2.2 today. -BP mproving up to 113/71 and temp has been wnl range. continue lopressor at 12.5mg po bid and continue to monitor -prelim blood cultures were negative -will discontinue the levaquin and meropenum after 5 days. -will continue vanc for at least 7 days and reassess need for further abx -vitals q8H -repeat labs in 48H -discharge to swingbed for [place] (2) Healthcare-associated pneumonia Current Visit: No Status: Acute Base Code: J18.9 - PNEUMONIA, UNSPECIFIED ORGANISM Comment: 09/22/17 -Resolving. -sputum culture prelim showing gramp positive cocci and gram positive rods -blood cultures prelim show no growth to date -Has had 5 doses of levaquin 750mg so will discontinue as well as the meropenum -Will continue vanc for at least 7 day course -continue O2 at 2L via NC to keep sats >92% -continue incentive spirometry -transition to Swing[facility] today (3) Diarrhea Current Visit: Yes Status: Acute Base Code: R19.7 - DIARRHEA, UNSPECIFIED Comment: 09/22/17- improved. Likely 2/2 antibiotic use. -stool study for c.diff negative -continue daily probiotic (4) Degenerative disc disease, cervical Current Visit: No Status: Acute Base Code: M50.30 - OTHER CERVICAL DISC DEGENERATION, UNSP CERVICAL REGION Comment: 09/22/17- s/p cervical laminectomy with bilateral foraminotomies C2-3. POD #11. suture removed yesterday. -pain control continues to be somehwat effective. Says the pain pump has helped with is lower back. -continue percocet 5/325mg po q4H (5) Physical deconditioning Current Visit: No Status: Acute Base Code: R53.81 - OTHER MALAISE Comment : 09/22/17- improving. walked 25 feet down the brna and back independently with waker. s/p cervical laminectomy wtih bilateral foraminotomies C2-3 - follow up with neurosurgery as scheduled - [facility] D[facility] prophylaxis Current Visit: No Status: Acute Base Code: [id number] - Comment: 09/22/17- Coumadin management for DVt prophylaxis and chronic anticoagulation therapy for history of PAF s/p CV - bridge to coumadin until INR therapeutic. starting coumadin today - pharmacy to dose - serial INR (7) Full code status Current Visit: No Status: Acute Base Code: Z78.9 - OTHER SPECIFIED HEALTH STATUS Comment: 09/22/17 will remain full code - Hospitalization Course Disposition: Moved to Swing Bed Hospital Course: History of Present illness: 77 y/o male s/p C2-3 laminectomy and bilateral foraminotomies admitted originally for deconditioning but developed altered mental status along with cellulitis and was admitted to inpatient. Past medical history includes CHF, PAF s/p CV, AICD for secondary prevention, CAD, DM, CKD, HLP, chornic pain pain with dilaudid pump. While hospitalized at [facility] had cervical laminectomy perfomed 09/11/17. Prior to surgery was seen in ED on 09/08/17 for COPD exacerbation, JOAN/CKD and elevated CE, was cleared by cardiology for surgery. No noted post-op complications. Last BUN/Cr 43/1.33 on 09/15/17. WBC normal, hgb 11.2 (09/15/17) . Blood sugars controlled. TSH noted to be low, synthroid dose lowered with recommendations to recheck in 4-6 weeks. Lopressor dose decreased as BP was low normal. Patient developed altered mentation starting yesterday afternoon. He was somnolent and would fall asleep mid sentence. He was very slowed in his responses and occasionally was not appropriate. He thought he was still at [facility] at times. Daughter was very worried stating this is not like him. He underwent work up including CT head, CXR, UA, CBC, CMP, CRP, ABG, blood and sputum cultures. ABG elevated at 7.5 with co2 at 48. CXR showed probable left lower infiltrate. Physical exam revealed a diffuse right lower extremity cellulitis primarily over the right lower leg with streaking towards the groin. Patient was hypotensive with BP consistently 80-100 systolic and 40-60 diastolic. His CBC showed a wbc count of 28,000 and CRP was elevated. Patient received one dose of rocephin within 3 hours of starting sepsis work up. Opioid pain medication was held as this was likely contributing to AMS, hypotension. Discussed antibiotic coverage with pharmacy considering h/o of MRSA, recent hospitalization, and recent intubation. He was then started on levaquin, vanc, and merapenum in place of zosyn 2/2 pcn allergy. He was admitted to inpatient unit. Patient showed some improvement clinically within 24H. BP was able to maintain MAP >65mmhg. WBC count trended downward and his temp came up from 97.0. His mentation began to improve within 24H of starting abx as did his cellulitis. Over the next 5 days patient continued to improve. The cellulitis has decreased significantly as has his cough and chest congestion. He is back to baseline as far as mentation goes. He is up ambulating independently now. His WBC count is down to 6,000 and his CRP had trended down to 3.2. His blood pressure continued to improve and he was actually started back on his lopressor. He had a PICC line placed for continued IV abx therapy. He is now medically stable to continue IV abx therapy and transition to [facility] for rehab. Procedures: Imaging and X-Rays 09/18/17 15:06 CXR [CHEST AP or PA ONLY] [RAD] Stat 09/19/17 09:45 EXTREMITY, LOWER [US] Stat 09/19/17 13:05 VENOUS DOPPLER LOWER EXT RT [US] Stat Abnormal Labs: Abnormal Lab Results 09/17/17 09/17/17 09/17/17 Range/Units 15:55 15:55 22:00 WBC 19.6 H (4.2-12.2) K/uL RBC 3.95 L (4.40-5.70) M/uL Hgb 10.9 L (14.0-18.0) gm/dl Hct 36.4 L (42.0-52.0) % MCH (27-33) pg MCHC 29.9 L (32-36) g/dl RDW 16.0 H (11.5-14.5) % Plt Count 120 L (130-400) K/uL MPV 11.2 H (7.4-10.4) fl Neutrophils % 96.0 H (47-80) % Lymphocytes % (16-45) % Monocytes % (0-9) % Eosinophils % (0-6) % Lymphocytes 2.0 L (16-45) % Potassium (3.4-4.5) mmol/L Chloride 92 L (98-107) mmol/L Carbon Dioxide 36.0 H (22-29) mmol/L BUN 30 H (8-23) mg/dL Creatinine 1.3 H (0.7-1.2) mg/dL POC Glucose 123 H (70-110) mg/dL Random Glucose 165 H (74-109) mg/dL Calcium 8.7 L (8.8-10.2) mg/dL Magnesium (1.6-2.4) mg/dL C-Reactive Protein (<0.5) mg/dL Total Protein (6.6-8.7) g/dL Albumin (4.0-5.0) g/dL Albumin/Globulin Ratio (1.1-1.8) Vancomycin Trough (5.0-10.0) ug/mL 09/18/17 09/18/17 09/18/17 Range/Units 06:25 06:25 21:38 WBC (4.2-12.2) K/uL RBC 3.70 L (4.40-5.70) M/uL Hgb 10.3 L (14.0-18.0) gm/dl Hct 34.0 L (42.0-52.0) % MCH (27-33) pg MCHC 30.3 L (32-36) g/dl RDW 15.7 H (11.5-14.5) % Plt Count (130-400) K/uL MPV 11.6 H (7.4-10.4) fl Neutrophils % 83.0 H (47-80) % Lymphocytes % (16-45) % Monocytes % (0-9) % Eosinophils % (0-6) % Lymphocytes 14.0 L (16-45) % Potassium (3.4-4.5) mmol/L Chloride (98-107) mmol/L Carbon Dioxide (22-29) mmol/L BUN (8-23) mg/dL Creatinine (0.7-1.2) mg/dL POC Glucose 215 H (70-110) mg/dL Random Glucose (74-109) mg/dL Calcium (8.8-10.2) mg/dL Magnesium (1.6-2.4) mg/dL C-Reactive Protein 19.7 H (<0.5) mg/dL Total Protein (6.6-8.7) g/dL Albumin (4.0-5.0) g/dL Albumin/Globulin Ratio (1.1-1.8) Vancomycin Trough (5.0-10.0) ug/mL 09/19/17 09/19/17 09/19/17 Range/Units 05:23 05:23 10:14 WBC (4.2-12.2) K/uL RBC 4.02 L (4.40-5.70) M/uL Hgb 10.8 L (14.0-18.0) gm/dl Hct 36.4 L (42.0-52.0) % MCH 26.8 L (27-33) pg MCHC 29.7 L (32-36) g/dl RDW 15.6 H (11.5-14.5) % Plt Count (130-400) K/uL MPV 11.3 H (7.4-10.4) fl Neutrophils % (47-80) % Lymphocytes % 11.7 L (16-45) % Monocytes % 9.5 H (0-9) % Eosinophils % (0-6) % Lymphocytes (16-45) % Potassium (3.4-4.5) mmol/L Chloride 92 L (98-107) mmol/L Carbon Dioxide 31.0 H (22-29) mmol/L BUN 26 H (8-23) mg/dL Creatinine 1.3 H (0.7-1.2) mg/dL POC Glucose (70-110) mg/dL Random Glucose 182 H (74-109) mg/dL Calcium 8.7 L (8.8-10.2) mg/dL Magnesium (1.6-2.4) mg/dL C-Reactive Protein 9.9 H (<0.5) mg/dL Total Protein 5.7 L (6.6-8.7) g/dL Albumin 2.9 L (4.0-5.0) g/dL Albumin/Globulin Ratio 1.0 L (1.1-1.8) Vancomycin Trough 17.1 H (5.0-10.0) ug/mL 09/19/17 09/20/17 09/20/17 Range/Units 22:00 05:40 05:40 WBC (4.2-12.2) K/uL RBC 4.11 L (4.40-5.70) M/uL Hgb 11.3 L (14.0-18.0) gm/dl Hct 37.1 L (42.0-52.0) % MCH (27-33) pg MCHC 30.5 L (32-36) g/dl RDW 15.5 H (11.5-14.5) % Plt Count (130-400) K/uL MPV 11.4 H (7.4-10.4) fl Neutrophils % (47-80) % Lymphocytes % 15.6 L (16-45) % Monocytes % 11.8 H (0-9) % Eosinophils % (0-6) % Lymphocytes (16-45) % Potassium 2.8 L* (3.4-4.5) mmol/L Chloride 91 L (98-107) mmol/L Carbon Dioxide 39.0 H (22-29) mmol/L BUN (8-23) mg/dL Creatinine 1.3 H (0.7-1.2) mg/dL POC Glucose 154 H (70-110) mg/dL Random Glucose 134 H (74-109) mg/dL Calcium (8.8-10.2) mg/dL Magnesium (1.6-2.4) mg/dL C-Reactive Protein 6.15 H (<0.5) mg/dL Total Protein 6.2 L (6.6-8.7) g/dL Albumin 3.4 L (4.0-5.0) g/dL Albumin/Globulin Ratio (1.1-1.8) Vancomycin Trough (5.0-10.0) ug/mL 09/20/17 09/20/17 09/21/17 Range/Units 15:55 22:02 06:10 WBC (4.2-12.2) K/uL RBC 3.99 L (4.40-5.70) M/uL Hgb 10.9 L (14.0-18.0) gm/dl Hct 36.3 L (42.0-52.0) % MCH (27-33) pg MCHC 30.0 L (32-36) g/dl RDW 15.4 H (11.5-14.5) % Plt Count (130-400) K/uL MPV 11.0 H (7.4-10.4) fl Neutrophils % (47-80) % Lymphocytes % (16-45) % Monocytes % 13.5 H (0-9) % Eosinophils % 6.6 H (0-6) % Lymphocytes (16-45) % Potassium 3.1 L (3.4-4.5) mmol/L Chloride 92 L (98-107) mmol/L Carbon Dioxide 38.0 H (22-29) mmol/L BUN (8-23) mg/dL Creatinine 1.4 H (0.7-1.2) mg/dL POC Glucose 212 H (70-110) mg/dL Random Glucose 185 H (74-109) mg/dL Calcium (8.8-10.2) mg/dL Magnesium 1.5 L (1.6-2.4) mg/dL C-Reactive Protein (<0.5) mg/dL Total Protein (6.6-8.7) g/dL Albumin (4.0-5.0) g/dL Albumin/Globulin Ratio (1.1-1.8) Vancomycin Trough (5.0-10.0) ug/mL 09/21/17 09/21/17 09/22/17 Range/Units 06:10 23:35 06:10 WBC (4.2-12.2) K/uL RBC 4.00 L (4.40-5.70) M/uL Hgb 11.0 L (14.0-18.0) gm/dl Hct 36.1 L (42.0-52.0) % MCH (27-33) pg MCHC 30.5 L (32-36) g/dl RDW 15.3 H (11.5-14.5) % Plt Count (130-400) K/uL MPV 11.0 H (7.4-10.4) fl Neutrophils % (47-80) % Lymphocytes % (16-45) % Monocytes % 11.7 H (0-9) % Eosinophils % 6.8 H (0-6) % Lymphocytes (16-45) % Potassium 3.0 L (3.4-4.5) mmol/L Chloride 92 L (98-107) mmol/L Carbon Dioxide 40.0 H (22-29) mmol/L BUN (8-23) mg/dL Creatinine 1.4 H (0.7-1.2) mg/dL POC Glucose 143 H (70-110) mg/dL Random Glucose 140 H (74-109) mg/dL Calcium (8.8-10.2) mg/dL Magnesium (1.6-2.4) mg/dL C-Reactive Protein 3.23 H (<0.5) mg/dL Total Protein 6.1 L (6.6-8.7) g/dL Albumin 3.2 L (4.0-5.0) g/dL Albumin/Globulin Ratio (1.1-1.8) Vancomycin Trough (5.0-10.0) ug/mL Condition at Discharge: (2) Stable Discharge Medications - Discharge Medications Home Medications: Ambulatory Orders Ascorbic Acid [Vitamin C] 1,000 mg PO BID 11/02/16 [Last Taken 04/14/17] Atorvastatin Calcium [Lipitor] 20 mg PO QHS 11/02/16 [Last Taken 04/14/17] Ferrous Sulfate 325 mg PO DAILY 11/02/16 [Last Taken 04/14/17] Hydromorphone HCl [Dilaudid] 1 mg PO CONT 11/02/16 [Last Taken 04/15/17] Insulin Detemir [Levemir] 6 unit SQ QHS 11/02/16 [Last Taken 04/14/17] Magnesium 400 mg PO BID 11/02/16 [Last Taken 04/14/17] Multivit-Min/FA/Lycopen/Lutein [Centrum Silver Tablet] 1 each PO DAILY 11/02/16 [Last Taken 04/14/17] Oxycodone HCl/Acetaminophen [Percocet 10mg/325mg] 1 - 2 tab PO Q4H PRN 11/02/16 [Last Taken 04/14/17] Ranitidine HCl [Zantac] 150 mg PO DAILY 11/02/16 [Last Taken 04/14/17] Tamsulosin HCl [Flomax] 0.4 mg PO DAILY 11/02/16 [Last Taken 04/14/17] Warfarin Sodium [Coumadin] 3 mg PO DAILY 11/02/16 [Last Taken 09/03/17 17:00] Amiodarone HCl [Pacerone] 200 mg PO DAILY 02/25/17 [Last Taken 04/14/17] Cholecalciferol (Vitamin D3) [Vitamin D3] 5,000 unit PO DAILY 02/25/17 [Last Taken 04/14/17] Clotrimazole/Betamethasone Dip [Clotrimazole-Betamethasone Crm] 15 gm TP BID [Last Taken 04/14/17] Levalbuterol Tartrate [Xopenex Hfa] 2 puff INH RESP.Q6H PRN 02/25/17 [Last Taken 04/14/17] Polyethylene Glycol 3350 [Miralax] 17 gm PO DAILY 02/25/17 [Last Taken 04/14/17] Sennosides/Docusate Sodium [Senna-Docusate Sodium Tablet] 2 each PO QHS [Last Taken 04/14/17] Metolazone [Zaroxolyn] 2.5 mg PO ASDIR 07/14/17 [Last Taken Unknown] Fluticasone/Salmeterol [Advair 250-50 Diskus] 1 each IH BID 09/07/17 [Last Taken Unknown] Enoxaparin Sodium [Lovenox] 40 mg SQ DAILY 09/08/17 [Last Taken Unknown] Bifidobacterium Infantis [Align] 4 mg PO DAILY capsule 09/22/17 [Last Taken Unknown] Bumetanide [Bumex] 2 mg PO BIDDIUR tablet 09/22/17 [Last Taken Unknown] Levothyroxine Sodium [Synthroid] 125 mcg PO DAILYTHY tablet 09/22/17 [Last Taken Unknown] Loperamide HCl [Immodium] 2 mg PO Q4H PRN capsule 09/22/17 [Last Taken Unknown] Metoprolol Tartrate [Lopressor] 12.5 mg PO BID tab 09/22/17 [Last Taken Unknown ] Oxycodone HCl/Acetaminophen [Percocet 10mg/325mg] 1 each PO Q4H PRN tablet [Last Taken Unknown] Oxycodone HCl/Acetaminophen [Percocet 5mg/325mg] 1 udtab PO Q6H PRN tablet [Last Taken Unknown] Potassium Chloride [Klor-Con] 40 meq PO BID tablet.sa 09/22/17 [Last Taken Unknown] Discharge Plan - Discharge Instructions Activity at Discharge: As Per Physical Therapy Diet at Discharge: Diabetic Diet Quality Measures - Quality Measures Quality Measures: Advance Directives, Documentation of Current Medications in Medical Record, Elder Maltreatment Screen and Follow-Up Plan, Screening for High Blood Pressure and F/U Documented - Current Medications Quality Measure: Measure #130: Documentation of Current Medications Documentation of Current Medications: <Current Medications Documented/Reviewed> [G8409] - Blood Pressure Screening Quality Measure: Screening for High Blood Pressure and Follow-Up Documented Does Patient Have Any of the Following: Active Dx of HTN Blood Pressure Classification: Normal BP Reading Systolic Measurement: 99 Diastolic Measurement: 61 Screening for High Blood Pressure: Patient Exclusion, Hx of HTN [G9744] - Advance Directives Quality Measure: Measure #47: Care Plan Advance Directives Established: Yes Advance Directives Information Provided To Patient: Yes Advance Directives on File: No Living Will: Yes Power of [employer] Consultant: Yes Power of [employer] Consultant Name: Emelyn Advance Care Planning: <Care Plan/Decision Maker Documented; Discussed & Documented> [[id number]] - Elder Abuse Suspicion Index Screening: Elder Abuse Suspicion Index Screening Rely on people for bathing, dressing, shopping, banking, etc: No Prevented from getting food, clothes, medication, etc: No Made to feel shamed or threatened by someone: No Forced to sign papers or use money against will: No Feel afraid, touched in ways not wanted or hurt physically: No Poor eye contact, withdrawn, malnourished, cuts or bruises: No Screening Result: Negative result EASI Reference Information: Tony MAE, Johnnie C, Sonam D, Nely Ford.Development and validation of a tool to assist physicians identification of elder abuse: The Elder Abuse Suspicion Index (EASI ). Journal of Elder Abuse and Neglect, 2008; 20 (3): 276-300. - Elder Maltreatment Screen Quality Measures: Elder Maltreatment Screen and Follow-Up Plan Elder Maltreatment Screen: <Negative, No Follow-Up Plan Required> [G2321]
[2017-09-22] MEDS: VANCOMYCIN HCL 750 MG in 0.9 % SODIUM CHLORIDE 250ML 250 ML IVPB SCH (09:20)
[2017-09-22] MEDS: ENOXAPARIN 40 MG/0.4 ML SYR SQ SCH (09:21)
[2017-09-22] MEDS: CHOLECALCIFEROL 1,000 UNIT TABLET PO SCH (09:22)
[2017-09-22] MEDS: FERROUS SULFATE 325 MG TAB PO SCH (09:22)
[2017-09-22] MEDS: ASCORBIC ACID 500 MG TAB PO SCH (09:23)
[2017-09-22] MEDS: MULTIVITAMINS/MINERALS TABLET PO SCH (09:23)
[2017-09-22] MEDS: AMIODARONE HCL 200 MG TABLET PO SCH (09:23)
[2017-09-22] MEDS: TAMSULOSIN HCL 0.4 MG CAP.ER.24H PO SCH (09:23)
[2017-09-22] MEDS: POTASSIUM CHLORIDE 20 MEQ TABLET PO SCH (09:23)
[2017-09-22] MEDS: MAGNESIUM OXIDE 400 MG TABLET PO SCH (09:23)
[2017-09-22] MEDS: METOLAZONE 2.5 MG TABLET PO SCH (09:23)
[2017-09-22] MEDS: BIFIDOBACTERIUM INFANTIS 4 MG CAPSULE PO SCH (09:23)
[2017-09-22] MEDS: BUMETANIDE 1 MG TABLET PO SCH (09:23)
[2017-09-22] MEDS: METOPROLOL TART 25 MG TABLET PO SCH (09:23)
[2017-09-22] MEDS: 0.9 % SODIUM CHLORIDE 10ML SYR IVP SCH ×2 (09:24→13:27)
[2017-09-22] MEDS: OXYCODONE/APAP 10MG-325MG TABLET PO PRN ×2 (09:36→13:27)
[2017-09-22] MEDS: LOPERAMIDE 2 MG CAPSULE PO PRN ×2 (09:36→13:27)
[2017-09-22] MEDS ORDERED: BREO (FLUTICASONE/VILANTEROL) 200MCG/25MCG INHALER INH SCH (10:00)
[2017-09-22] MEDS: HEPARIN SODIUM FLUSH 100 UNITS/ML SYR 5ML IVP SCH (13:27)
[2017-09-22] MEDS ORDERED: WARFARIN 1 MG TABLET PO SCH (16:00)
[2017-09-22] MEDS ORDERED: VANCOMYCIN HCL 500 MG in 0.9 % SODIUM CHLORIDE 100ML 100 ML IVPB SCH (21:00)
[2017-09-23] MEDS ORDERED: WARFARIN 1 MG TABLET PO SCH (16:00)
== END 2017-09-22 14:31 | disposition swing bed (61) | DRG 602 ==
LOC: UNDOADMIN 10:23 → MEDSURG 10:23
PROVIDERS: ADMIT Internal Medicine; ATTEND Internal Medicine
DX: L03.115 Cellulitis of right lower limb (principal); J18.9 Pneumonia, unspecified organism; J44.1 Chronic obstructive pulmonary disease with (acute) exacerbation; M50.30 Other cervical disc degeneration, unspecified cervical region; N18.9 Chronic kidney disease, unspecified; E03.9 Hypothyroidism, unspecified; E11.65 Type 2 diabetes mellitus with hyperglycemia; Z79.4 Long term (current) use of insulin; I48.91 Unspecified atrial fibrillation; Z79.01 Long term (current) use of anticoagulants; Z95.810 Presence of automatic (implantable) cardiac defibrillator; I50.9 Heart failure, unspecified; I12.9 Hypertensive chronic kidney disease with stage 1 through stage 4 chronic kidney disease, or unspecified chronic kidney disease; E11.22 Type 2 diabetes mellitus with diabetic chronic kidney disease; G89.29 Other chronic pain
CPT/HCPCS: 36416; 71010; 76882; 80048; 80053; 80202; 82948; 83605; 83735; 85025; 85027; 85610; 86140; 87493; 94640; 97165; 97530; 99223; 99233; 99239; J1650; J1956; J3370; J7050

== ENCOUNTER 2017-09-22 09:23 | Inpatient (IN) | payer MEDICARE, OTHER ==
--- NOTE | 2017-09-22 12:50 | Rehab Evaluation ---
Patient Information - Patient Information Ordered Treatment: PT Evaluate and Treat Status: Initial Evaluation Surgery: Yes (Laminectomy C2-C3) Date of Surgery: 09/11/17 History: Detail (Patient was previously an inpatient and is now transferred to the Swing Bed Unit for Rehabilitation.) Past Medical/Surgical Hx: PAST MEDICAL/SURGICAL HISTORY Past Surgical History pump trial with dilaudid implanted cath ( permanent device in place) Back surgery X5, neck surgery, Hip & shoulder sx ,Bunionectomy,bilat right hip replacement, AICD , abscess rt thigh, septic hip, hematoma rt thigh , revision x2, evac of hematoma post rt hip; lumbar rhizotomy 05/31/15. permanent pain pump 2015 C2-3 lminectomy 09/19 PMH - Respiratory Hx Respiratory Disorders Yes Hx Pneumonia Yes: 1989, current 2016 Hx of SOB Yes: occass PMH - Cardiovascular Hx Cardiovascular Disorders Yes Hx Abnormal EKG Yes Hx Congestive Heart Failure Yes Hx Deep Vein Thrombosis Yes: 20 years ago after being kicked by a cow, current rt ankle 01/2017 Hx Edema Yes: bilat legs recent hospitalization Hx Hypertension Yes Hx Irregular Heartbeat Yes: hx a fib had cardioversion 1990 & 01/2017 Hx Pacemaker/Defibrillator Yes: 2014 Comment: hospitalizations states cardiac arrest during past hospitalization 07/18 PMH - Neuro Hx Neurological Disorders No Hx Neuropathy Yes: rt hand Hx Seizures No: denies PMH - GI Hx Gastrointestinal Disorders Yes Hx Gastroesophageal Reflux denies reflux Hx Weight Loss/Weight Gain No PMH - Hx Genitourinary Disorders No Hx Bladder Problem Yes: retention Hx Prostate Problems No: pt states no but on flomax Hx Urinary Tract Infection Yes PMH - Endocrine Hx Endocrine Disorders Yes Hx Diabetes Yes Hx Thyroid Disease Yes Hx of NIDDM Yes Hx of IDDM Yes Comment: checks blood sugars bid (100-140)/ulcers on feet due to poor circulation PMH - Musculoskeletal Hx Musculoskeletal Disorders Yes Hx Arthritis Yes Hx Back Injury Yes Hx Musculoskeletal Disease Yes Comment: chronic pain; hx septic hip in past PMH - Psych Hx Psychiatric Problems No PMH - Hematology/Oncology Hx Hematology/Oncology Yes Disorders Hx Anemia Yes Hx Bruising Yes Hx Cancer Yes: skin Hx Clotting Problems Yes Hx Blood Transfusion Reaction No Comment: pt to bridge with Lovenox 4 days preop Premorbid Status: Detail (Patient was independent with all mobility prior to surgery and ambulatory with 2 canes.) Social History: Detail (The patient lives in a one story home with 3 steps at the enterance and one handrail. The patient has tow bathrooms, one with a shower stall and elevated toilet seat with grab bars and one with a tub/shower combination and standard toilet with grab bars.) Precautions: [place], Fall, Other (Contact isolation.) - Time With Patient Total Time Spent With Patient (Min): 35 Treatment Procedures: Detail (Initial Evaluation) Subjective Information - Subjective Information Per Patient (The patient has complaints of minimal cervical pain initially, then level 10 using a 0-10 pain scale following PT Eval, Ther ex and gait training.) Objective Data - Mental Status Patient Orientation: Oriented x3 - Visual Perception Appears within normal limits for therapeutic activities - ROM Not within normal limits (The patient's cervical AROM is severely limited with 5 degrees of rotation to the L and 0 to the R and minimal cervical flexion. No sidebending was present and extension was not tested.) - Strength/Tone Not within normal limits (The patient's LE strength is as follows: hip flexors 3 -/5, L 4/5, hip abductors bilaterally 3+/5, bilateral hip adductors 4-/5, hip extensors right 3-/5, left 3/5, rotators were not tested, knee flexors L 4+/5, R 4/5, quads 4-/5, L 4+/5, ankle musculature 4+/5.) - Bed Mobility Needs Assist (Not reassessed recently.) - Transfers Independent (The patient was independent with sit to and from stand transfer.) - Balance Balance Sitting: Good Balance Standing: Fair (The patient requires wheeled walker for support.) - Gait Detail (The patient ambulated with wheeled walker a distance of 100 feet x 1 with CG of 1 for safety. The patient exhibited a forward flexed position of trunk. The patient was ambulating with normal stride length and good heel to toe weight shift.) Therapy Assessment - Therapy Assessment Detail (The patient's pain level is decreased since inpatient stay and dilaud pump adjustment. The patient is requiring less assistance with mobility.) Problem List - Problem List Physical Therapy Problem List: Detail (1) Decreased LE strength 2) Assistance with bed mobility 3) Decreased ability to complete sustained physical activity 4 ) Cervical pain with activity) Goals - Goals Physical Therapy Goals: 1) Assess bed mobility. 2) The patient will ambulate on levels with appropriate assistive device independently community distances. 3) Increase LE strength 1/3 muscle grade. 4) Independent with bed mobilty. 5) The patient will ambulate on stairs with supervision for safety. Prognosis - Prognosis Good Plan - Plan Physical Therapy Plan: PT 1-2 times a day for gait training, transfer training, bed mobility, LE strengthening exercises.
[2017-09-22] MEDS ORDERED: ALBUTEROL SULFATE (0.083%) 2.5 MG/3 ML NEB INH PRN (14:54)
[2017-09-22] MEDS ORDERED: CLOTRIMAZOLE/BETAMET 15 GM TUBE TOP PRN (14:58)
[2017-09-22] MEDS ORDERED: POLYETHYLENE GLY 17 GM PACKET PO PRN (15:00)
[2017-09-22] MEDS ORDERED: LOPERAMIDE 2 MG CAPSULE PO PRN (15:00)
[2017-09-22] MEDS: BUMETANIDE 1 MG TABLET PO SCH (16:59)
[2017-09-22] MEDS: WARFARIN 1 MG TABLET PO SCH (16:59)
[2017-09-22] MEDS: OXYCODONE/APAP 10MG-325MG TABLET PO PRN (18:28)
[2017-09-22] MEDS: VANCOMYCIN HCL 500 MG in 0.9 % SODIUM CHLORIDE 100ML 100 ML IVPB SCH (21:02)
[2017-09-22] MEDS: POTASSIUM CHLORIDE 20 MEQ TABLET PO SCH (22:20)
[2017-09-22] MEDS: VANCOMYCIN HCL 750 MG in 0.9 % SODIUM CHLORIDE 250ML 250 ML IVPB SCH (22:20)
[2017-09-22] MEDS: 0.9 % SODIUM CHLORIDE 10ML SYR IVP SCH (22:52)
[2017-09-22] MEDS: HEPARIN SODIUM FLUSH 100 UNITS/ML SYR 5ML IVP SCH (22:52)
[2017-09-22] MEDS: METOPROLOL TART 25 MG TABLET PO SCH (22:52)
[2017-09-22] MEDS: LEVEMIR FLEXTOUCH 100 UNIT/ML INSULIN PEN SQ SCH (22:53)
[2017-09-22] MEDS: ASCORBIC ACID 500 MG TAB PO SCH (22:54)
[2017-09-22] MEDS: RANITIDINE HCL 150 MG TABLET PO SCH (22:54)
[2017-09-22] MEDS: ATORVASTATIN 20 MG TABLET PO SCH (22:55)
[2017-09-22] MEDS: SENNOSIDES/DOCUSATE SODIUM UD CAPSULE PO SCH (22:55)
[2017-09-23] MEDS: LEVOTHYROXINE SODIUM 125 MCG TABLET PO SCH (06:24)
[2017-09-23] MEDS: OXYCODONE/APAP 10MG-325MG TABLET PO PRN ×2 (07:58→14:25)
--- NOTE | 2017-09-23 08:07 | Rehab Evaluation ---
Patient Information - Patient Information Diagnosis: deconditioning d/t pneumonia, RLE cellulitis, C2-3 laminectomy Ordered Treatment: OT Evaluate and Treat Status: Initial Evaluation Surgery: Yes (Laminectomy C2-C3) Date of Surgery: 09/11/17 History: Detail (Patient was previously an inpatient and is now transferred to the Swing Bed Unit for Rehabilitation.) Past Medical/Surgical Hx: PAST MEDICAL/SURGICAL HISTORY Past Surgical History pump trial with dilaudid implanted cath ( permanent device in place) Back surgery X5, neck surgery, Hip & shoulder sx ,Bunionectomy,bilat right hip replacement, AICD , abscess rt thigh, septic hip, hematoma rt thigh , revision x2, evac of hematoma post rt hip; lumbar rhizotomy 05/31/15. permanent pain pump 2015 C2-3 lminectomy 09/19 PMH - Respiratory Hx Respiratory Disorders Yes Hx Pneumonia Yes: 1989, current 2016 Hx of SOB Yes: occass PMH - Cardiovascular Hx Cardiovascular Disorders Yes Hx Abnormal EKG Yes Hx Congestive Heart Failure Yes Hx Deep Vein Thrombosis Yes: 20 years ago after being kicked by a cow, current rt ankle 01/2017 Hx Edema Yes: bilat legs recent hospitalization Hx Hypertension Yes Hx Irregular Heartbeat Yes: hx a fib had cardioversion 1990 & 01/2017 Hx Pacemaker/Defibrillator Yes: 2014 Comment: hospitalizations states cardiac arrest during past hospitalization 07/18 PMH - Neuro Hx Neurological Disorders No Hx Neuropathy Yes: rt hand Hx Seizures No: denies PMH - GI Hx Gastrointestinal Disorders Yes Hx Gastroesophageal Reflux denies reflux Hx Weight Loss/Weight Gain No PMH - Hx Genitourinary Disorders No Hx Bladder Problem Yes: retention Hx Prostate Problems No: pt states no but on flomax Hx Urinary Tract Infection Yes PMH - Endocrine Hx Endocrine Disorders Yes Hx Diabetes Yes Hx Thyroid Disease Yes Hx of NIDDM Yes Hx of IDDM Yes Comment: checks blood sugars bid (100-140)/ulcers on feet due to poor circulation PMH - Musculoskeletal Hx Musculoskeletal Disorders Yes Hx Arthritis Yes Hx Back Injury Yes Hx Musculoskeletal Disease Yes Comment: chronic pain; hx septic hip in past PMH - Psych Hx Psychiatric Problems No PMH - Hematology/Oncology Hx Hematology/Oncology Yes Disorders Hx Anemia Yes Hx Bruising Yes Hx Cancer Yes: skin Hx Clotting Problems Yes Hx Blood Transfusion Reaction No Comment: pt to bridge with Lovenox 4 days preop Premorbid Status: Detail (Pt lives alone in a 1 story house with 3 steps and one handrail at the entrance. He has 2 bathrooms, one has a shower stall as well as an elevated toilet seat with grab bar, the second bathroom has a tub/ shower combination and standard height toilet with grab bar. He was Ind with all ADLs/IADLs prior to surgery. Patient was independent with all mobility prior to surgery and ambulatory with 2 canes.) Social History: Detail (Supportive daughter.) Precautions: [place], Fall, Other (Contact isolation and no lifting greater than 10#.) - Time With Patient Total Time Spent With Patient (Min): 45 Treatment Procedures: Detail (OT eval low complexity) Subjective Information - Subjective Information Per Patient Objective Data - Pain Pain Present: Yes (3-10 prior to eval, 8-9/10 after eval) - Mental Status Patient Orientation: Oriented x3 - Visual Perception Appears within normal limits for therapeutic activities - ROM Not within normal limits (Ozzy shoulder flexion limited to approx. 110 degrees, ozzy elbow, wrist and hand AROM WNL.) - Strength/Tone Not within normal limits (Ozzy UE MMT not formally completed due to surgical precautions.) - Coordination Appears within normal limits for therapeutic activities - Bed Mobility Needs Assist (Min assist x 1 for supine to sit.) - Transfers Independent (Ind with sit to stand from EOB, chair and toilet heights.) - Balance Balance Sitting: Good Balance Standing: Fair - Sensation Intact - Gait Detail (Pt ambulatory in room/bathroom with 2 wheeled walker Indly.) - ADL's/IADL's Detail (Pt able to complete oral hygiene in standing at sink, doffed t-shirt, PJ bottoms and briefs in sitting with use of cane in place of television inspector, Ind with sponge bathing in sitting with exception of ozzy feet, donned t-shirt Indly, donned briefs with max assist to start over feet, donned PJ bottoms Indly. Pt reports he has a television inspector and sock aid at home, his daughter will bring these in this week.) Therapy Assessment - Therapy Assessment Detail (Pt presents with decreased UE strength and ROM, decreased LE ADLs, increased neck pain. Will need to assess shower safety when incision is healed enough to allow showering.) Problem List - Problem List Physical Therapy Problem List: Detail (1) Decreased LE strength 2) Assistance with bed mobility 3) Decreased ability to complete sustained physical activity 4 ) Cervical pain with activity) Occupational Therapy Problem List: Detail (1. Decrease UE strength, ROM and overall endurance needed for safe and Ind ADLs/IADLs. 2. Decreased Ind with LE ADLs. 3. Need to assess shower safety and Ind.) Goals - Goals Physical Therapy Goals: 1) Assess bed mobility. 2) The patient will ambulate on levels with appropriate assistive device independently community distances. 3) Increase LE strength 1/3 muscle grade. 4) Independent with bed mobilty. 5) The patient will ambulate on stairs with supervision for safety. Occupational Therapy Goals: 1. Pt will demonstrate improved overall endurance and UE strength/ROM to allow safe and Ind ADLs/IADLs. 2. Pt will be Ind with LE self cares using adaptive equipment as needed. 3. Pt will be safe and Ind with showering. Prognosis - Prognosis Good Plan - Plan Physical Therapy Plan: PT 1-2 times a day for gait training, transfer training, bed mobility, LE strengthening exercises. Occupational Therapy Plan: OT 2-4 times per week to address self cares, functional mobility, UE function/strength and overall endurance to allow safe and Ind return home.
--- NOTE | 2017-09-23 08:59 | History & Physical ---
History of Present Illness - Date Date of Service for History & Physical: 09/23/17 - History of Present Illness Admitting Diagnosis: Deconditioning d/t pneumonia, RLE cellulitis, C2-C3 fusion History of Present Illness: History of Present illness: 77 y/o male s/p C2-3 laminectomy and bilateral foraminotomies admitted originally for deconditioning but developed altered mental status along with cellulitis and was admitted to inpatient. Past medical history includes CHF, PAF s/p CV, AICD for secondary prevention, CAD, DM, CKD, HLP, chornic pain pain with dilaudid pump. While hospitalized at [facility] had cervical laminectomy perfomed 09/11/17. Prior to surgery was seen in ED on 09/08/17 for COPD exacerbation, JOAN/CKD and elevated CE, was cleared by cardiology for surgery. No noted post-op complications. Last BUN/Cr 43/1.33 on 09/15/17. WBC normal, hgb 11.2 (09/15/17) . Blood sugars controlled. TSH noted to be low, synthroid dose lowered with recommendations to recheck in 4-6 weeks. Lopressor dose decreased as BP was low normal. Patient developed altered mentation starting yesterday afternoon. He was somnolent and would fall asleep mid sentence. He was very slowed in his responses and occasionally was not appropriate. He thought he was still at [facility] at times. Daughter was very worried stating this is not like him. He underwent work up including CT head, CXR, UA, CBC, CMP, CRP, ABG, blood and sputum cultures. ABG elevated at 7.5 with co2 at 48. CXR showed probable left lower infiltrate. Physical exam revealed a diffuse right lower extremity cellulitis primarily over the right lower leg with streaking towards the groin. Patient was hypotensive with BP consistently 80-100 systolic and 40-60 diastolic. His CBC showed a wbc count of 28,000 and CRP was elevated. Patient received one dose of rocephin within 3 hours of starting sepsis work up. Opioid pain medication was held as this was likely contributing to AMS, hypotension. Discussed antibiotic coverage with pharmacy considering h/o of MRSA, recent hospitalization, and recent intubation. He was then started on levaquin, vanc, and merapenum in place of zosyn 2/2 pcn allergy. He was admitted to inpatient unit. Patient showed some improvement clinically within 24H. BP was able to maintain MAP >65mmhg. WBC count trended downward and his temp came up from 97.0. His mentation began to improve within 24H of starting abx as did his cellulitis. Over the next 5 days patient continued to improve. The cellulitis has decreased significantly as has his cough and chest congestion. He is back to baseline as far as mentation goes. He is up ambulating independently now. His WBC count is down to 6,000 and his CRP had trended down to 3.2. His blood pressure continued to improve and he was actually started back on his lopressor. He had a PICC line placed for continued IV abx therapy. He is now medically stable to continue IV abx therapy and transition to [facility] for rehab. General - Cognitive Patterns Orientation: Oriented x3 - Communication Preferred Language?: [place] Court Collections Officer Required: No Level of Education: High School Preferred Method of Learning: Seeing, Doing Comprehension Ability: No Impairment Able to Read: Yes Able to Write: Yes Select best description of speech pattern: Clear Speech Ability to express ideas and wants: Understood Understanding verbal content: Understands - Psychosocial Well-Being Usual Living Arrangement: Alone - Physical Functioning Activity Level: Up as tolerated Turning: Self ad trista ROM Ability: Moves all extremities Assistive Devices: 2 Wheel Walker Ambulation Ability: Needs Assist Bed Mobility: Needs Assist Transfer Ability: Needs Assist Bathing Ability: Needs Assist Personal Hygiene: Needs Assist Dressing Ability: Needs Assist Eating (Feeding) Ability: Independent Toileting Ability: Needs Assist Administer Own Medication: Independent - Continence Bowel Pattern: Diarrhea Bladder Pattern: Normal, Frequency - Dental Status Unable to examine: No Broken or loosely fitting full or partial dentures: No No natural teeth or tooth fragment(s) (edentulous): No Abnormal mouth tissue (ulcers, masses, oral lesions, etc.): No Obvious or likely cavity or broken natural teeth: No Inflamed or bleeding gums or loose natural teeth: No Mouth/facial pain, discomfort or difficulty chewing: No - Nutrition Screening Poor oral intake > 1 week: No Unplanned weight loss in specified time frame: No Nutrition Support via tube feedings or parenteral nutrition: No Pressure Ulcer: No Significantly underweight define as BMI <18.5 kg/m2: No Albumin <2.5mg/dL: No Persistent nausea/vomiting/diarrhea >3 days: No Difficulty chewing/swallowing/mouth sores: No Admitting Diagnosis: No Nutrition Risk Score: Low Risk Review of Systems Constitutional: Reports: Weakness (generalized). Denies: Chills, Fever Eyes: Denies: Vision change ENT: Denies: Congestion, Throat pain Respiratory: Denies: Cough, Dyspnea Cardiovascular: Reports: Edema (chronic pedal ). Denies: Chest pain Gastrointestinal: Reports: Diarrhea. Denies: Abdominal pain, Nausea Musculoskeletal: Reports: Arthralgia Skin: Reports: Change in color (RLE) Neurological: Denies: Confusion, Headache Past Medical History - SOCIAL HISTORY Smoking Status: Former smoker Alcohol Use: None - SURGICAL HISTORY Past Surgical History: pump trial with dilaudid implanted cath (permanent device in place). Back surgery X5, neck surgery, Hip & shoulder sx,Bunionectomy ,bilat right hip replacement, AICD, abscess rt thigh, septic hip, hematoma rt thigh, revision x2, evac of hematoma post rt hip;. lumbar rhizotomy 05/31/15. permanent pain pump 2015. C2-3 lminectomy 09/19 - RESPIRATORY Hx Respiratory Disorders: Yes Hx Pneumonia: Yes (1989, current 2016) - CARDIOVASCULAR Hx Cardio Disorders: Yes Hx Abnormal EKG: Yes Hx CHF: Yes Hx Deep Vein Thrombosis: Yes (20 years ago after being kicked by a cow, current rt ankle 01/2017) Hx Edema: Yes (bilat legs recent hospitalization) Hx Hypertension: Yes Hx Irregular Heartbeat: Yes (hx a fib had cardioversion 1990 & 01/2017) Hx Pacemaker/Defib: Yes (2014) Comment:: hospitalizations states cardiac arrest during past hospitalization - NEURO Hx Neuro Disorders: No Hx Seizures: No (denies) - GI Hx GI Disorders: Yes Hx Reflux: (denies reflux) Hx Wt Loss/Wt Gain: No - Hx Genitourinary Disorders: No Hx Prostate Problems: No (pt states no but on flomax) - ENDOCRINE Hx Endocrine Disorders: Yes Hx Diabetes: Yes - MUSCULOSKELETAL Hx Musculoskeletal Disorders: Yes Hx Arthritis: Yes Hx Back Injury: Yes Hx Musculoskeletal Disease: Yes Comment:: chronic pain; hx septic hip in past - PSYCH Hx Psych Problems: No - HEMATOLOGY/ONCOLOGY Hx Hematology/Oncology Disorders: Yes Hx Anemia: Yes Hx Bruising: Yes Hx Cancer: Yes (skin) Hx Clotting Problems: Yes Hx Blood Transfusions: Yes (with hip surgery, and hematoma) Hx Blood Transfusion Reaction: No Family Medical History Any Significant Family History?: Yes Hx Cancer: Father, Mother Hx Dementia: Mother *Dementia Comment: mother alzheimers H&P Meds/Allergies - Allergies Allergies: Allergies Allergy/AdvReac Type Severity Reaction Status Date / Time onion Allergy Intermediate NAUSEA Verified 01/30/16 14:13 - Home Medications Previous Rx's Medication Instructions Recorded Bifidobacterium Infantis [Align] 4 mg PO DAILY capsule 09/22/17 Bumetanide [Bumex] 2 mg PO BIDDIUR tablet 09/22/17 Levothyroxine Sodium [Synthroid] 125 mcg PO DAILYTHY tablet 09/22/17 Loperamide HCl [Immodium] 2 mg PO Q4H PRN capsule 09/22/17 Metoprolol Tartrate [Lopressor] 12.5 mg PO BID tab 09/22/17 Oxycodone HCl/Acetaminophen 1 each PO Q4H PRN tablet 09/22/17 [Percocet 10mg/325mg] Oxycodone HCl/Acetaminophen 1 udtab PO Q6H PRN tablet 09/22/17 [Percocet 5mg/325mg] Potassium Chloride [Klor-Con] 40 meq PO BID tablet.sa 09/22/17 - Active Medications Active Medications: Current Medications Acetaminophen (Tylenol 500mg Tab) 1,000 mg PO Q6H PRN PRN Reason: Fever GT 101/Headache Albuterol Sulfate () 2.5 mg INH RESP.Q6H PRN PRN Reason: DIFFICULTY IN BREATHING Amiodarone HCl (Pacerone) 200 mg PO DAILY [facility] Ascorbic Acid (Vitamin C) 1,000 mg PO BID [facility] Last Admin: 09/22/17 22:54 Dose: 1,000 mg Atorvastatin Calcium (Lipitor) 20 mg PO QHS [facility] Last Admin: 09/22/17 22:55 Dose: 20 mg Bumetanide (Bumex) 2 mg PO BIDDIUR [facility] Last Admin: 09/22/17 16:59 Dose: 2 mg Clotrimazole (Lotrisone) 0.5 gm TOP BID PRN PRN Reason: RASH Enoxaparin Sodium (Lovenox) 40 mg SQ DAILY [facility] Stop: 09/24/17 10:01 Ferrous Sulfate (Iron) 325 mg PO DAILY [facility] Heparin Sodium (Porcine) () 500 unit IVP BID [facility] Last Admin: 09/22/17 22:52 Dose: 500 unit Vancomycin HCl 750 mg/ Sodium (Chloride) 250 mls @ 150 mls/hr IVPB Q12H [facility] Last Infusion: 09/23/17 00:08 Dose: Infused Vancomycin HCl 500 mg/ Sodium (Chloride) 100 mls @ 100 mls/hr IVPB Q12H [facility] Last Infusion: 09/22/17 22:19 Dose: Infused Insulin Detemir (Levemir Flextouch) 6 unit SQ QHS [facility] Last Admin: 09/22/17 22:53 Dose: 6 unit Levothyroxine Sodium (Synthroid) 125 mcg PO DAILYTHY [facility] Last Admin: 09/23/17 06:24 Dose: 125 mcg Loperamide HCl (Immodium) 2 mg PO Q4H PRN PRN Reason: Diarrhea Magnesium Oxide (Mag Ox) 400 mg PO DAILY [facility] Metolazone (Zaroxolyn) 2.5 mg PO SuTh [facility] Metoprolol Tartrate (Lopressor) 12.5 mg PO BID [facility] Last Admin: 09/22/17 22:52 Dose: 12.5 mg Multivitamins/Minerals (Centrum) 1 tab PO DAILY [facility] Oxycodone/Acetaminophen (Percocet 10-325 Mg Tablet) 1 each PO Q4H PRN PRN Reason: Pain - General Last Admin: 09/23/17 07:58 Dose: 1 each Polyethylene Glycol (Miralax) 17 gm PO QHS PRN PRN Reason: Constipation Potassium Chloride (Klor-Con) 20 meq PO BID [facility] Last Admin: 09/22/17 22:20 Dose: 20 meq Ranitidine HCl (Zantac) 150 mg PO QHS [facility] Last Admin: 09/22/17 22:54 Dose: 150 mg Senna/Docusate Sodium (Senna Plus) 2 each PO QHS [facility] Last Admin: 09/22/17 22:55 Dose: Not Given Sodium Chloride () 10 ml IVP BID [facility] Last Admin: 09/22/17 22:52 Dose: 10 ml Tamsulosin HCl (Flomax) 0.4 mg PO DAILY [facility] Vitamin D (Vitamin D3) 5,000 unit PO DAILY [facility] Warfarin Sodium (Coumadin) 2 mg PO [id number] [facility] Last Admin: 09/22/17 16:59 Dose: 2 mg Physical Exam - Vital Signs Vital Signs: Vital Signs - Last 24 Hrs Temp Pulse Resp BP BP Pulse Ox 09/22/17 20:00 97.5 F L 73 16 110/69 96 09/22/17 14:30 97.0 F L 77 18 98/58 99 09/22/17 10:40 98 F 113/62 - General General Appearance: Alert, Oriented x3, Cooperative, No acute distress - Head Head exam: Normal inspection - Eye Eye exam: Normal appearance, PERRL - ENT ENT exam: Normal exam, Mucous membranes moist, Normal external ear exam, Normal orophraynx, TM's normal bilaterally - Neck Neck exam: Normal inspection, Full ROM, Other (incision site healing well). negative: Tenderness - Cardiovascular Cardiovascular Exam: Regular rate, Normal rhythm, Systolic murmur - GI/Abdominal GI/Abdominal exam: Soft, Normal bowel sounds. negative: Tenderness - Extremities Extremities exam: Full ROM, Normal capillary refill, Pedal edema (RLE; cellulitis right lower extremity). negative: Tenderness - Neurological Neurological exam: Alert, Normal gait, Oriented X3, Reflexes normal H&P Results - Labs Labs Last 24 Hours: Laboratory Results - last 24 hr 09/22/17 09/23/17 22:00 07:03 POC Glucose 199 H 140 H Discharge Potential - Discharge Needs Community Services Used Prior to Admission: None Patient Discharge Plan Description: Return Home Community Services Needed at Discharge: Occupational Therapy, Physical Therapy Plan - Swing Bed Certification Initial Certification Due: 09/22/17 14 Day Re-Cert Due: 10/06/17 44 Day Re-Cert Due: 11/05/17 74 Day Re-Cert Due: 12/05/17 - Detailed Diagnosis and Plan (1) Physical deconditioning Current Visit: No Status: Acute Base Code: R53.81 - OTHER MALAISE Comment : 09/22/17- improving. walked 25 feet down the bran and back independently with walker. s/p cervical laminectomy wtih bilateral foraminotomies C2-3 - follow up with neurosurgery as scheduled - continue PT/OT M-F (2) Cellulitis Current Visit: No Status: Acute Qualifiers: Base Code: L03.90 - CELLULITIS, UNSPECIFIED Comment: 09/22/17- erthyema continues to improve and now limited to lower half of right calf and [place]. patient has h/o mrsa and sepsis. PICC line in place. Doppler neagtive for DVT and targeted u/s showed some nonspecific inflammation with no evidence of fluid collection. -will continue vanc for at least 7 days 09/24/17 and reassess need for further abx -vitals q12H -repeat labs in 48H (3) Degenerative disc disease, cervical Current Visit: No Status: Acute Base Code: M50.30 - OTHER CERVICAL DISC DEGENERATION, UNSP CERVICAL REGION Comment: 09/22/17- s/p cervical laminectomy with bilateral foraminotomies C2-3. POD #11. suture removed yesterday. -pain control continues to be somehwat effective. Says the pain pump has helped with is lower back. -continue percocet 5/325mg po q4H (4) Hypothyroidism Current Visit: No Status: Acute Qualifiers: Hypothyroidism type: unspecified Qualified Code(s): E03.9 - Hypothyroidism , unspecified Base Code: E03.9 - HYPOTHYROIDISM, UNSPECIFIED Comment: 09/22/17- TSH low during hospitalization at [facility] [place]. Synthroid noted to have been decreased to 125mcg daily - repeat TSH in 4-6 weeks (5) DVT prophylaxis Current Visit: No Status: Acute Base Code: [id number] - Comment: 09/22/17- Coumadin management for DVt prophylaxis and chronic anticoagulation therapy for history of PAF s/p CV - bridge to coumadin until INR therapeutic. starting coumadin today - pharmacy to dose - serial INR (6) Full code status Current Visit: No Status: Acute Base Code: Z78.9 - OTHER SPECIFIED HEALTH STATUS Comment: 09/22/17 will remain full code
[2017-09-23] MEDS: MAGNESIUM OXIDE 400 MG TABLET PO SCH (09:21)
[2017-09-23] MEDS: MULTIVITAMINS/MINERALS TABLET PO SCH (09:21)
[2017-09-23] MEDS: 0.9 % SODIUM CHLORIDE 10ML SYR IVP SCH ×3 (09:21→21:45)
[2017-09-23] MEDS: CHOLECALCIFEROL 1,000 UNIT TABLET PO SCH (09:21)
[2017-09-23] MEDS: BUMETANIDE 1 MG TABLET PO SCH ×2 (09:21→15:37)
[2017-09-23] MEDS: POTASSIUM CHLORIDE 20 MEQ TABLET PO SCH ×2 (09:21→21:45)
[2017-09-23] MEDS: VANCOMYCIN HCL 500 MG in 0.9 % SODIUM CHLORIDE 100ML 100 ML IVPB SCH ×2 (09:21→21:00)
[2017-09-23] MEDS: TAMSULOSIN HCL 0.4 MG CAP.ER.24H PO SCH (09:21)
[2017-09-23] MEDS: AMIODARONE HCL 200 MG TABLET PO SCH (09:21)
[2017-09-23] MEDS: FERROUS SULFATE 325 MG TAB PO SCH (09:21)
[2017-09-23] MEDS: ASCORBIC ACID 500 MG TAB PO SCH ×2 (09:21→21:45)
[2017-09-23] MEDS: BIFIDOBACTERIUM INFANTIS 4 MG CAPSULE PO SCH (09:21)
[2017-09-23] MEDS: METOPROLOL TART 25 MG TABLET PO SCH ×2 (09:22→21:45)
[2017-09-23] MEDS: ENOXAPARIN 40 MG/0.4 ML SYR SQ SCH (09:22)
[2017-09-23] MEDS: BREO (FLUTICASONE/VILANTEROL) 200MCG/25MCG INHALER INH SCH (11:16)
[2017-09-23] MEDS: VANCOMYCIN HCL 750 MG in 0.9 % SODIUM CHLORIDE 250ML 250 ML IVPB SCH ×2 (11:37→22:30)
[2017-09-23] MEDS: HEPARIN SODIUM FLUSH 100 UNITS/ML SYR 5ML IVP SCH ×2 (14:15→21:45)
--- NOTE | 2017-09-23 15:11 | Physical Therapy Tx Note ---
Physical Therapy Tx Note - Treatment Note Tolerated: Good Total Time Spent With Patient: 20 Physical Therapy Tx Note: Detail (Pt was asleep in chair upon arrival and was difficult to rouse. Pt was agreeable to ambulate and stated was eager to get out of the chair. Pt. was still receiving IV fluids. Pt transferred sit to stand with contact gaurd assist after donning neck collar. Pt ambulated with wheeled walker x 135 ft. with contact gaurd assist and FEED MANAGER pulling IV cart. Pt returned to room and chair. Pt was given call light, bedside table, and phone. Pt states that neck is really sore and he feels that it has been a long time since taking pain meds. Pt requested nursing to change IV bag and pain meds. Pt did well with ambulation but states fatigued after. Pt to be seen tomorrow a.m. for continued PT.) Physical Therapy Problem List: Detail (1) Decreased LE strength 2) Assistance with bed mobility 3) Decreased ability to complete sustained physical activity 4 ) Cervical pain with activity) Physical Therapy Goals: 1) Assess bed mobility. 2) The patient will ambulate on levels with appropriate assistive device independently community distances. 3) Increase LE strength 1/3 muscle grade. 4) Independent with bed mobilty. 5) The patient will ambulate on stairs with supervision for safety. Prognosis: Good Physical Therapy Plan: PT 1-2 times a day for gait training, transfer training, bed mobility, LE strengthening exercises.
[2017-09-23] MEDS: WARFARIN 1 MG TABLET PO SCH (15:37)
[2017-09-23] MEDS: RANITIDINE HCL 150 MG TABLET PO SCH (21:45)
[2017-09-23] MEDS: ATORVASTATIN 20 MG TABLET PO SCH (21:45)
[2017-09-23] MEDS: LEVEMIR FLEXTOUCH 100 UNIT/ML INSULIN PEN SQ SCH (21:46)
[2017-09-23] MEDS: SENNOSIDES/DOCUSATE SODIUM UD CAPSULE PO SCH (23:08)
[2017-09-24] MEDS: ACETAMINOPHEN 500 MG TABLET PO PRN ×2 (02:50→10:33)
[2017-09-24 06:35] LABS: BASO % 0.2 % (0-6); EOS % 4.4 % (0-6); GRAN % 74.5 % (47-80); HEMATOCRIT 33.6 % (42.0-52.0); HEMOGLOBIN 10.6 gm/dl (14.0-18.0); LYMPH % 14.8 % (16-45); MEAN CELL VOLUME 89.4 fl (81-97); MEAN CORPUSCULAR HGB CONC 31.5 g/dl (32-36); MEAN PLATELET VOLUME 10.2 fl (7.4-10.4); MONO % 6.1 % (0-9); PLATELET COUNT 156 K/uL (130-400); RED BLOOD COUNT 3.76 M/uL (4.40-5.70); RED CELL DISTRIBUTION WIDTH 15.2 % (11.5-14.5); WHITE BLOOD COUNT W/O DIFF 6.1 K/uL (4.2-12.2)
[2017-09-24 06:42] LABS: MEAN CORPUSCULAR HEMOGLOBIN 28.1 pg (27-33)
[2017-09-24 06:46] LABS: PROTHROMBIN TIME (PATIENT) 10.8 SECONDS (9.5-12.1)
[2017-09-24 06:55] LABS: ALB/GLOB RATIO 1.2 (1.1-1.8); ALBUMIN 3.3 g/dL (4.0-5.0); BILIRUBIN,TOTAL 0.5 mg/dL (0.2-1.0); C-REACTIVE PROTEIN 1.15 mg/dL (<0.5); CREATININE 1.6 mg/dL (0.7-1.2)
[2017-09-24] MEDS: LEVOTHYROXINE SODIUM 125 MCG TABLET PO SCH (07:13)
[2017-09-24] MEDS: VANCOMYCIN HCL 500 MG in 0.9 % SODIUM CHLORIDE 100ML 100 ML IVPB SCH (08:11)
[2017-09-24] MEDS: 0.9 % SODIUM CHLORIDE 10ML SYR IVP SCH (09:42)
[2017-09-24] MEDS: HEPARIN SODIUM FLUSH 100 UNITS/ML SYR 5ML IVP SCH (09:42)
[2017-09-24] MEDS: BREO (FLUTICASONE/VILANTEROL) 200MCG/25MCG INHALER INH SCH (10:01)
[2017-09-24] MEDS: VANCOMYCIN HCL 750 MG in 0.9 % SODIUM CHLORIDE 250ML 250 ML IVPB SCH (10:12)
[2017-09-24] MEDS: BIFIDOBACTERIUM INFANTIS 4 MG CAPSULE PO SCH (10:27)
[2017-09-24] MEDS: BUMETANIDE 1 MG TABLET PO SCH ×2 (10:28→16:15)
[2017-09-24] MEDS: TAMSULOSIN HCL 0.4 MG CAP.ER.24H PO SCH (10:29)
[2017-09-24] MEDS: MULTIVITAMINS/MINERALS TABLET PO SCH (10:29)
[2017-09-24] MEDS: POTASSIUM CHLORIDE 20 MEQ TABLET PO SCH ×2 (10:30→22:45)
[2017-09-24] MEDS: METOPROLOL TART 25 MG TABLET PO SCH ×2 (10:30→22:52)
[2017-09-24] MEDS: FERROUS SULFATE 325 MG TAB PO SCH (10:30)
[2017-09-24] MEDS: ENOXAPARIN 40 MG/0.4 ML SYR SQ SCH (10:31)
[2017-09-24] MEDS: CHOLECALCIFEROL 1,000 UNIT TABLET PO SCH (10:32)
[2017-09-24] MEDS: MAGNESIUM OXIDE 400 MG TABLET PO SCH (10:32)
[2017-09-24] MEDS: AMIODARONE HCL 200 MG TABLET PO SCH (10:32)
[2017-09-24] MEDS: ASCORBIC ACID 500 MG TAB PO SCH ×2 (10:32→22:46)
--- NOTE | 2017-09-24 11:29 | Physical Therapy Tx Note ---
Physical Therapy Tx Note - Treatment Note Tolerated: Good Total Time Spent With Patient: 30 Physical Therapy Tx Note: Detail (Patient was seated in chair upon WRAPPER HANDS SPRAYER arrival. Patient states neck painful today. Patient transferred sit to and from stand SBA x1. Patient ambulated 254 feet with wheeled walker SBA x1 with WRAPPER HANDS SPRAYER pulling IV pole. Patient performed the following exercises x20 reps each: seated marching, seated hip abduction with doubled red theraband, LAQ, and hamstring curls with red theraband. Patient tolerated treatment well. Patient declined further exercises due to neck pain. Patient was left seated in chair with call light within reach.) Physical Therapy Problem List: Detail (1) Decreased LE strength 2) Assistance with bed mobility 3) Decreased ability to complete sustained physical activity 4 ) Cervical pain with activity) Physical Therapy Goals: 1) Assess bed mobility. 2) The patient will ambulate on levels with appropriate assistive device independently community distances. 3) Increase LE strength 1/3 muscle grade. 4) Independent with bed mobilty. 5) The patient will ambulate on stairs with supervision for safety. Prognosis: Good Physical Therapy Plan: PT 1-2 times a day for gait training, transfer training, bed mobility, LE strengthening exercises.
[2017-09-24] MEDS: OXYCODONE/APAP 10MG-325MG TABLET PO PRN (12:04)
[2017-09-24 16:11] LABS: BASO % 0.3 % (0-6); EOS % 3.8 % (0-6); GRAN % 71.8 % (47-80); HEMATOCRIT 34.3 % (42.0-52.0); HEMOGLOBIN 10.5 gm/dl (14.0-18.0); LYMPH % 16.3 % (16-45); MEAN CORPUSCULAR HGB CONC 30.6 g/dl (32-36); MEAN PLATELET VOLUME 10.6 fl (7.4-10.4); MONO % 7.8 % (0-9); PLATELET COUNT 167 K/uL (130-400); RED BLOOD COUNT 3.81 M/uL (4.40-5.70); RED CELL DISTRIBUTION WIDTH 15.2 % (11.5-14.5); WHITE BLOOD COUNT W/O DIFF 5.8 K/uL (4.2-12.2)
--- NOTE | 2017-09-24 16:14 | Physical Therapy Tx Note ---
Physical Therapy Tx Note - Treatment Note Tolerated: Fair Total Time Spent With Patient: 15 Physical Therapy Tx Note: Detail (The patient was up in chair when PT arrived. The patient requested trying ambulation with 2 canes. The patient was independent with sit to stand with canes. The patient attempted to step and stated " I don't feel ready." The patient ambulated with wheeled walker with supervision a distance of 108 feet x 1. The patient complained of increased cervical pain with ambulation and refused further activity. The patient continues to ambulate with a forward flexed posture and soft cervical collar.) Physical Therapy Problem List: Detail (1) Decreased LE strength 2) Assistance with bed mobility 3) Decreased ability to complete sustained physical activity 4 ) Cervical pain with activity) Physical Therapy Goals: 1) Assess bed mobility. 2) The patient will ambulate on levels with appropriate assistive device independently community distances. 3) Increase LE strength 1/3 muscle grade. 4) Independent with bed mobilty. 5) The patient will ambulate on stairs with supervision for safety. Physical Therapy Plan: PT 1-2 times a day for gait training, transfer training, bed mobility, LE strengthening exercises.
[2017-09-24] MEDS: WARFARIN 1 MG TABLET PO SCH (16:15)
[2017-09-24 16:27] LABS: MEAN CORPUSCULAR HEMOGLOBIN 27.5 pg (27-33)
[2017-09-24] MEDS: ATORVASTATIN 20 MG TABLET PO SCH (22:46)
[2017-09-24] MEDS: RANITIDINE HCL 150 MG TABLET PO SCH (22:46)
[2017-09-24] MEDS: SENNOSIDES/DOCUSATE SODIUM UD CAPSULE PO SCH (22:46)
[2017-09-24] MEDS: LEVEMIR FLEXTOUCH 100 UNIT/ML INSULIN PEN SQ SCH (22:46)
[2017-09-25] MEDS: LEVOTHYROXINE SODIUM 125 MCG TABLET PO SCH (07:05)
[2017-09-25] MEDS: BREO (FLUTICASONE/VILANTEROL) 200MCG/25MCG INHALER INH SCH (09:30)
[2017-09-25] MEDS ORDERED: METOLAZONE 2.5 MG TABLET PO SCH (10:00)
[2017-09-25] MEDS: 0.9 % SODIUM CHLORIDE 10ML SYR IVP SCH (10:02)
[2017-09-25] MEDS: HEPARIN SODIUM FLUSH 100 UNITS/ML SYR 5ML IVP SCH (10:03)
[2017-09-25] MEDS: MAGNESIUM OXIDE 400 MG TABLET PO SCH (10:03)
[2017-09-25] MEDS: MULTIVITAMINS/MINERALS TABLET PO SCH (10:04)
[2017-09-25] MEDS: BUMETANIDE 1 MG TABLET PO SCH ×2 (10:04→16:14)
[2017-09-25] MEDS: AMIODARONE HCL 200 MG TABLET PO SCH (10:05)
[2017-09-25] MEDS: FERROUS SULFATE 325 MG TAB PO SCH (10:05)
[2017-09-25] MEDS: TAMSULOSIN HCL 0.4 MG CAP.ER.24H PO SCH (10:05)
[2017-09-25] MEDS: POTASSIUM CHLORIDE 20 MEQ TABLET PO SCH ×2 (10:06→21:36)
[2017-09-25] MEDS: BIFIDOBACTERIUM INFANTIS 4 MG CAPSULE PO SCH (10:06)
[2017-09-25] MEDS: CHOLECALCIFEROL 1,000 UNIT TABLET PO SCH (10:07)
[2017-09-25] MEDS: ENOXAPARIN 40 MG/0.4 ML SYR SQ SCH (10:07)
[2017-09-25] MEDS: ASCORBIC ACID 500 MG TAB PO SCH ×2 (10:09→21:36)
[2017-09-25] MEDS: METOPROLOL TART 25 MG TABLET PO SCH ×2 (10:49→21:32)
[2017-09-25] MEDS: WARFARIN 1 MG TABLET PO SCH (16:13)
[2017-09-25] MEDS: SENNOSIDES/DOCUSATE SODIUM UD CAPSULE PO SCH (21:36)
[2017-09-25] MEDS: RANITIDINE HCL 150 MG TABLET PO SCH (21:36)
[2017-09-25] MEDS: ATORVASTATIN 20 MG TABLET PO SCH (21:36)
[2017-09-25] MEDS: OXYCODONE/APAP 10MG-325MG TABLET PO PRN (21:36)
[2017-09-25] MEDS: LEVEMIR FLEXTOUCH 100 UNIT/ML INSULIN PEN SQ SCH (21:41)
[2017-09-26] MEDS: LEVOTHYROXINE SODIUM 125 MCG TABLET PO SCH (06:21)
[2017-09-26 06:31] LABS: BASO % 0.5 % (0-6); EOS % 5.8 % (0-6); GRAN % 68.2 % (47-80); HEMATOCRIT 32.4 % (42.0-52.0); LYMPH % 15.3 % (16-45); MEAN CELL VOLUME 89.8 fl (81-97); MEAN CORPUSCULAR HEMOGLOBIN 27.7 pg (27-33); MEAN CORPUSCULAR HGB CONC 30.9 g/dl (32-36); MEAN PLATELET VOLUME 10.4 fl (7.4-10.4); MONO % 10.2 % (0-9); PLATELET COUNT 167 K/uL (130-400); RED BLOOD COUNT 3.61 M/uL (4.40-5.70); RED CELL DISTRIBUTION WIDTH 15.4 % (11.5-14.5); WHITE BLOOD COUNT W/O DIFF 4.3 K/uL (4.2-12.2)
[2017-09-26 07:11] LABS: INR 1.05; PROTHROMBIN TIME (PATIENT) 11.4 SECONDS (9.5-12.1)
[2017-09-26 07:29] LABS: ALB/GLOB RATIO 1.3 (1.1-1.8); ALBUMIN 3.4 g/dL (4.0-5.0); BILIRUBIN,TOTAL 0.5 mg/dL (0.2-1.0); C-REACTIVE PROTEIN 1.15 mg/dL (<0.5); CREATININE 1.6 mg/dL (0.7-1.2); TOTAL PROTEIN 6.1 g/dL (6.6-8.7)
[2017-09-26] MEDS ORDERED: POTASSIUM CHLORIDE 20 MEQ TABLET PO ONE ×2 (07:46)
[2017-09-26] MEDS: BREO (FLUTICASONE/VILANTEROL) 200MCG/25MCG INHALER INH SCH (10:11)
--- NOTE | 2017-09-26 10:20 | Occupational Therapy Tx Note ---
Occupational Therapy Tx Note - Treatment Note Tolerated: Good Total Time Spent With Patient: 15 (ther ex) Occupational Therapy Treatment Note: Detail (S: Pt finishing cleaning up in bathroom. O: Pt reports he was able to complete sponge bathing at sink and doffing/donning underpants and pants Indly. He still has difficulty with socks due to dressing on feet. He was able to demonstrate Ind with donning t-shirt with mild difficulty to puller out head. Pt completed ozzy UE AROM exercises x 10 reps each, shoulder flexion, elbow flexion/extension, wrist flexion/ extension and finger flexion/extension. Pt had difficulty with shoulder flexion right worse than left, due to increased pain and weakness. A: Ozzy UE weakness and shoulder pain, Ind with dressing except slippers. Pt hopes to have shower assessment soon but wants to be sure physician is ok with incision being healed.) Occupational Therapy Problem List: Detail (1. Decrease UE strength, ROM and overall endurance needed for safe and Ind ADLs/IADLs. 2. Decreased Ind with LE ADLs. 3. Need to assess shower safety and Ind.) Occupational Therapy Goals: 1. Pt will demonstrate improved overall endurance and UE strength/ROM to allow safe and Ind ADLs/IADLs. 2. Pt will be Ind with LE self cares using adaptive equipment as needed. 3. Pt will be safe and Ind with showering. Prognosis: Good Occupational Therapy Plan: OT 2-4 times per week to address self cares, functional mobility, UE function/strength and overall endurance to allow safe and Ind return home.
--- NOTE | 2017-09-26 10:47 | Physical Therapy Tx Note ---
Physical Therapy Tx Note - Treatment Note Tolerated: Good Total Time Spent With Patient: 45 Physical Therapy Tx Note: Detail (The patient ambulated with wheeled walker a distance of 250 feet x1 with supervision for safety only. The patient completed LE strengthening exercises with blue band including : hip abduction, hamstring curls, L LAQ , without resistance hip marching, R LAQ, hip adductor squeezes all exercises until fatigued. The patient complained of R groin pain with hip marching and LAQ. The patient tolerated treatment well . Increased ambulation distance and increased LE muscular endurance was noted.) Physical Therapy Problem List: Detail (1) Decreased LE strength 2) Assistance with bed mobility 3) Decreased ability to complete sustained physical activity 4 ) Cervical pain with activity) Physical Therapy Goals: 1) Assess bed mobility. 2) The patient will ambulate on levels with appropriate assistive device independently community distances. 3) Increase LE strength 1/3 muscle grade. 4) Independent with bed mobilty. 5) The patient will ambulate on stairs with supervision for safety. Physical Therapy Plan: PT 1-2 times a day for gait training, transfer training, bed mobility, LE strengthening exercises.
[2017-09-26] MEDS: CHOLECALCIFEROL 1,000 UNIT TABLET PO SCH (11:19)
[2017-09-26] MEDS: BIFIDOBACTERIUM INFANTIS 4 MG CAPSULE PO SCH (11:19)
[2017-09-26] MEDS: MULTIVITAMINS/MINERALS TABLET PO SCH (11:19)
[2017-09-26] MEDS: ASCORBIC ACID 500 MG TAB PO SCH ×2 (11:20→22:17)
[2017-09-26] MEDS: BUMETANIDE 1 MG TABLET PO SCH ×2 (11:20→17:09)
[2017-09-26] MEDS: AMIODARONE HCL 200 MG TABLET PO SCH (11:20)
[2017-09-26] MEDS: MAGNESIUM OXIDE 400 MG TABLET PO SCH (11:20)
[2017-09-26] MEDS: 0.9 % SODIUM CHLORIDE 10ML SYR IVP SCH (11:21)
[2017-09-26] MEDS: FERROUS SULFATE 325 MG TAB PO SCH (11:21)
[2017-09-26] MEDS: HEPARIN SODIUM FLUSH 100 UNITS/ML SYR 5ML IVP SCH (11:21)
[2017-09-26] MEDS: POTASSIUM CHLORIDE 20 MEQ TABLET PO SCH ×2 (11:21→22:17)
[2017-09-26] MEDS: TAMSULOSIN HCL 0.4 MG CAP.ER.24H PO SCH (11:21)
[2017-09-26] MEDS: METOLAZONE 2.5 MG TABLET PO SCH (11:22)
[2017-09-26] MEDS: ENOXAPARIN 40 MG/0.4 ML SYR SQ SCH (11:22)
[2017-09-26] MEDS: METOPROLOL TART 25 MG TABLET PO SCH ×2 (11:22→22:17)
[2017-09-26] MEDS: WARFARIN 1 MG TABLET PO SCH (17:09)
[2017-09-26] MEDS: RANITIDINE HCL 150 MG TABLET PO SCH (22:16)
[2017-09-26] MEDS: SENNOSIDES/DOCUSATE SODIUM UD CAPSULE PO SCH ×2 (22:17→22:53)
[2017-09-26] MEDS: ATORVASTATIN 20 MG TABLET PO SCH (22:17)
[2017-09-26] MEDS: LEVEMIR FLEXTOUCH 100 UNIT/ML INSULIN PEN SQ SCH (22:18)
[2017-09-27] MEDS: LEVOTHYROXINE SODIUM 125 MCG TABLET PO SCH (06:45)
[2017-09-27] MEDS: OXYCODONE/APAP 10MG-325MG TABLET PO PRN (08:29)
[2017-09-27] MEDS: BREO (FLUTICASONE/VILANTEROL) 200MCG/25MCG INHALER INH SCH (10:00)
[2017-09-27] MEDS: ENOXAPARIN 40 MG/0.4 ML SYR SQ SCH (10:24)
[2017-09-27] MEDS: METOPROLOL TART 25 MG TABLET PO SCH ×2 (10:24→21:22)
[2017-09-27] MEDS: MAGNESIUM OXIDE 400 MG TABLET PO SCH (10:25)
[2017-09-27] MEDS: POTASSIUM CHLORIDE 20 MEQ TABLET PO SCH ×2 (10:25→21:21)
[2017-09-27] MEDS: AMIODARONE HCL 200 MG TABLET PO SCH (10:25)
[2017-09-27] MEDS: ASCORBIC ACID 500 MG TAB PO SCH ×2 (10:25→21:21)
[2017-09-27] MEDS: BIFIDOBACTERIUM INFANTIS 4 MG CAPSULE PO SCH (10:26)
[2017-09-27] MEDS: BUMETANIDE 1 MG TABLET PO SCH ×2 (10:26→16:22)
[2017-09-27] MEDS: 0.9 % SODIUM CHLORIDE 10ML SYR IVP SCH (10:26)
[2017-09-27] MEDS: HEPARIN SODIUM FLUSH 100 UNITS/ML SYR 5ML IVP SCH (10:26)
[2017-09-27] MEDS: CHOLECALCIFEROL 1,000 UNIT TABLET PO SCH (10:26)
[2017-09-27] MEDS: TAMSULOSIN HCL 0.4 MG CAP.ER.24H PO SCH (10:26)
[2017-09-27] MEDS: MULTIVITAMINS/MINERALS TABLET PO SCH (10:26)
[2017-09-27] MEDS: FERROUS SULFATE 325 MG TAB PO SCH (10:26)
[2017-09-27] MEDS ORDERED: ONDANSETRON 4 MG ODT TABLET SL PRN (10:43)
[2017-09-27] MEDS: WARFARIN 1 MG TABLET PO SCH (16:22)
[2017-09-27] MEDS: SENNOSIDES/DOCUSATE SODIUM UD CAPSULE PO SCH (21:21)
[2017-09-27] MEDS: ATORVASTATIN 20 MG TABLET PO SCH (21:21)
[2017-09-27] MEDS: RANITIDINE HCL 150 MG TABLET PO SCH (21:21)
[2017-09-27] MEDS: LEVEMIR FLEXTOUCH 100 UNIT/ML INSULIN PEN SQ SCH (21:22)
[2017-09-28] MEDS: LEVOTHYROXINE SODIUM 125 MCG TABLET PO SCH (06:48)
[2017-09-28 07:11] LABS: BASO % 0.2 % (0-6); EOS % 3.6 % (0-6); GRAN % 73.5 % (47-80); HEMATOCRIT 31.3 % (42.0-52.0); HEMOGLOBIN 9.4 gm/dl (14.0-18.0); LYMPH % 14.1 % (16-45); MEAN CELL VOLUME 90.7 fl (81-97); MEAN CORPUSCULAR HEMOGLOBIN 27.2 pg (27-33); MEAN PLATELET VOLUME 10.7 fl (7.4-10.4); MONO % 8.6 % (0-9); PLATELET COUNT 156 K/uL (130-400); RED BLOOD COUNT 3.45 M/uL (4.40-5.70); RED CELL DISTRIBUTION WIDTH 15.7 % (11.5-14.5); WHITE BLOOD COUNT W/O DIFF 5.3 K/uL (4.2-12.2)
[2017-09-28 07:19] LABS: INR 1.31; PROTHROMBIN TIME (PATIENT) 14.2 SECONDS (9.5-12.1)
[2017-09-28 07:28] LABS: ALB/GLOB RATIO 1.3 (1.1-1.8); ALBUMIN 3.3 g/dL (4.0-5.0); BILIRUBIN,TOTAL 0.6 mg/dL (0.2-1.0); C-REACTIVE PROTEIN 5.12 mg/dL (<0.5); CREATININE 1.8 mg/dL (0.7-1.2); TOTAL PROTEIN 5.9 g/dL (6.6-8.7)
--- NOTE | 2017-09-28 08:55 | Physician Progress Note ---
Subjective - Date Date of Progress Note: 09/28/17 - Admitting Diagnosis Diagnosis: Deconditioning d/t pneumonia, RLE cellulitis, C2-C3 fusion - Subjective Events since last encounter: The patient has had increased edema of the right lower extremity and left 1st metatarsal joint. Antibiotics have been d/c for his cellulitis of the RLE and there is improvement in the color. Nursing Care Plan Problem List Activity Intolerance (Swing Bed) Start: 09/22/17 14: 46 Freq: Status: Active Protocol: Created 09/22/17 14:46 KM (Rec: 09/22/17 14:46 [facility] [id number] Knowledge Deficit (Swing Bed) Start: 09/22/17 14: 46 Freq: Status: Active Protocol: Created 09/22/17 14:46 KM (Rec: 09/22/17 14:46 [facility] [place] [id number][place] Pain (Swing Bed) Start: 09/22/17 14: 46 Freq: Status: Active Protocol: Created 09/22/17 14:46 KM (Rec: 09/22/17 14:46 [facility] [place] [id number]) Risk For Falls (Swing Bed) Start: 09/22/17 14: 46 Freq: Status: Active Protocol: Created 09/22/17 14:46 KM (Rec: 09/22/17 14:46 [facility] [place] [id number]) Risk For Infection (Swing Bed) Start: 09/22/17 14: 46 Freq: Status: Active Protocol: Created 09/22/17 14:46 KM (Rec: 09/22/17 14:46 [facility] [place] [id number]) Skin Integrity, Impaired (Swing Bed) Start: 09/22/17 14: 46 Freq: Status: Active Protocol: Created 09/22/17 14:46 KM (Rec: 09/22/17 14:46 [facility] [place] [id number]) Subjective: Patient is alert and oriented x 3 this morning. - Subjective Detail Constitutional: Denies: Chills, Fever Respiratory: Denies: Cough, Dyspnea Cardiovascular: Denies: Arrhythmia, Chest pain Gastrointestinal: Reports: Constipation. Denies: Abdominal pain Musculoskeletal: Reports: Back pain, Joint swelling, Neck pain General - Cognitive Patterns Speech: Normal Thought Process: Intact Thought Content: Normal - Communication Select best description of speech pattern: Clear Speech Ability to express ideas and wants: Understood Understanding verbal content: Understands - Mood and Behavior Patterns Appearance: Well Groomed Mood: Normal Attitude: Cooperative Motor Activity: Calm Affect: Appropriate Hallucinations: Denies - Physical Functioning Activity Level: Up as tolerated Turning: Self ad trista ROM Ability: Moves all extremities Assistive Devices: 2 Wheel Walker Ambulation Ability: Independent Bed Mobility: Needs Assist Transfer Ability: Needs Assist Bathing Ability: Independent Personal Hygiene: Independent Dressing Ability: Independent Eating (Feeding) Ability: Independent Toileting Ability: Independent Administer Own Medication: Independent - Continence Bowel Pattern: Normal for Patient Bladder Pattern: Normal, Frequency Meds/Allergies - Allergies Allergies Allergy/AdvReac Type Severity Reaction Status Date / Time onion Allergy Intermediate NAUSEA Verified 01/30/16 14:13 - Active Medications Current Medications Acetaminophen (Tylenol 500mg Tab) 1,000 mg PO Q6H PRN PRN Reason: Fever GT 101/Headache Last Admin: 09/24/17 10:33 Dose: 1,000 mg Albuterol Sulfate () 2.5 mg INH RESP.Q6H PRN PRN Reason: DIFFICULTY IN BREATHING Amiodarone HCl (Pacerone) 200 mg PO DAILY [facility] Last Admin: 09/27/17 10:25 Dose: 200 mg Ascorbic Acid (Vitamin C) 1,000 mg PO BID [facility] Last Admin: 09/27/17 21:21 Dose: 1,000 mg Atorvastatin Calcium (Lipitor) 20 mg PO QHS [facility] Last Admin: 09/27/17 21:21 Dose: 20 mg Bumetanide (Bumex) 2 mg PO BIDDIUR [facility] Last Admin: 09/27/17 16:22 Dose: 2 mg Clotrimazole (Lotrisone) 0.5 gm TOP BID PRN PRN Reason: RASH Enoxaparin Sodium (Lovenox) 40 mg SQ DAILY [facility] Stop: 09/28/17 10:01 Last Admin: 09/27/17 10:24 Dose: 40 mg Ferrous Sulfate (Iron) 325 mg PO DAILY [facility] Last Admin: 09/27/17 10:26 Dose: 325 mg Heparin Sodium (Porcine) () 500 unit IVP DAILY [facility] Last Admin: 09/27/17 10:26 Dose: 500 unit Insulin Detemir (Levemir Flextouch) 6 unit SQ QHS [facility] Last Admin: 09/27/17 21:22 Dose: 6 unit Levothyroxine Sodium (Synthroid) 125 mcg PO DAILYTHY [facility] Last Admin: 09/28/17 06:48 Dose: 125 mcg Loperamide HCl (Immodium) 2 mg PO Q4H PRN PRN Reason: Diarrhea Magnesium Oxide (Mag Ox) 400 mg PO DAILY [facility] Last Admin: 09/27/17 10:25 Dose: 400 mg Metolazone (Zaroxolyn) 5 mg PO SuTh [facility] Last Admin: 09/26/17 11:22 Dose: Not Given Metoprolol Tartrate (Lopressor) 12.5 mg PO BID [facility] Last Admin: 09/27/17 21:22 Dose: Not Given Multivitamins/Minerals (Centrum) 1 tab PO DAILY [facility] Last Admin: 09/27/17 10:26 Dose: 1 tab Ondansetron HCl (Zofran Odt) 4 mg SL Q8H PRN PRN Reason: NAUSEA/VOMITING Last Admin: 09/27/17 10:56 Dose: 4 mg Oxycodone/Acetaminophen (Percocet 10-325 Mg Tablet) 1 each PO Q4H PRN PRN Reason: Pain - General Last Admin: 09/27/17 08:29 Dose: 1 each Polyethylene Glycol (Miralax) 17 gm PO QHS PRN PRN Reason: Constipation Potassium Chloride (Klor-Con) 20 meq PO BID [facility] Last Admin: 09/27/17 21:21 Dose: 20 meq Ranitidine HCl (Zantac) 150 mg PO QHS [facility] Last Admin: 09/27/17 21:21 Dose: 150 mg Senna/Docusate Sodium (Senna Plus) 2 each PO QHS [facility] Last Admin: 09/27/17 21:21 Dose: 2 each Sodium Chloride () 10 ml IVP DAILY [facility] Last Admin: 09/27/17 10:26 Dose: 10 ml Tamsulosin HCl (Flomax) 0.4 mg PO DAILY [facility] Last Admin: 09/27/17 10:26 Dose: 0.4 mg Vitamin D (Vitamin D3) 5,000 unit PO DAILY [facility] Last Admin: 09/27/17 10:26 Dose: 5,000 unit Warfarin Sodium (Coumadin) 4 mg PO [id number] [facility] Last Admin: 09/27/17 16:22 Dose: 4 mg Objective - Vital Signs Vital Signs: Vital Signs - Last 24 Hrs Temp Pulse Pulse Resp BP Pulse Ox 09/28/17 07:50 97.7 F 79 20 93/59 95 09/27/17 20:50 98.5 F 72 18 92/55 94 L 09/27/17 10:07 71 17 93 L - General General Appearance: Alert, Oriented x3, Cooperative, No acute distress - Head Head exam: Normal inspection - Eye Eye exam: Normal appearance, PERRL - ENT ENT exam: Normal exam, Mucous membranes moist, Normal external ear exam, Normal orophraynx, TM's normal bilaterally - Neck Neck exam: Normal inspection, Full ROM, Other (incision site healing well). negative: Tenderness - Cardiovascular Cardiovascular Exam: Regular rate, Normal rhythm, Systolic murmur Peripheral Pulses: 1+: Radial (R) (not appreciable due to edema), Radial (L) ( not appreciable due to edema) - GI/Abdominal GI/Abdominal exam: Soft, Normal bowel sounds. negative: Tenderness - Extremities Extremities exam: Full ROM, Normal capillary refill, Pedal edema (RLE edema improving), Other (pitting edema +3 of the right lower ext up to the knee. ). negative: Tenderness - Neurological Neurological exam: Alert, Normal gait, Oriented X3, Reflexes normal - Skin Distribution of rash: Other (improvement in discoloration of the RLE) H&P Results - Labs Result Diagrams: 09/28/17 06:40 09/28/17 06:40 Labs Last 24 Hours: Laboratory Results - last 24 hr 09/28/17 09/28/17 09/28/17 06:40 06:40 06:40 WBC 5.3 RBC 3.45 L Hgb 9.4 L Hct 31.3 L MCV 90.7 MCH 27.2 MCHC 30.0 L RDW 15.7 H Plt Count 156 MPV 10.7 H Gran % 73.5 Lymphocytes % 14.1 L Monocytes % 8.6 Eosinophils % 3.6 Basophils % 0.2 PT 14.2 H INR 1.31 Sodium 140 Potassium 3.1 L Chloride 93 L Carbon Dioxide 38.0 H Anion Gap 9.0 BUN 43 H Creatinine 1.8 H Estimated GFR 39 Random Glucose 131 H Calcium 8.9 Total Bilirubin 0.60 AST 21 ALT 16 Alkaline Phosphatase 71 C-Reactive Protein 5.12 H Total Protein 5.9 L Albumin 3.3 L Globulin 2.6 Albumin/Globulin Ratio 1.3 Discharge Potential - Discharge Needs Community Services Used Prior to Admission: None Patient Discharge Plan Description: Return Home Community Services Needed at Discharge: Occupational Therapy, Physical Therapy Plan - Swing Bed Certification Initial Certification Due: 09/22/17 14 Day Re-Cert Due: 10/06/17 44 Day Re-Cert Due: 11/05/17 74 Day Re-Cert Due: 12/05/17 - Detailed Diagnosis and Plan (1) Bilateral lower extremity edema Current Visit: Yes Status: Acute Base Code: R60.0 - LOCALIZED EDEMA Comment: - pt has history of chronic lower ext edema. Echo 2014 EF 65%, - on Zyroxyln 2.5mg and Bumex 2mg BID. BP marginal so diuretics to be dosed with holding parameters. - cont use of home compression device and SCDs daily. Ambulation encouraged. - fluid restricted to 2 liters QD (2) Physical deconditioning Current Visit: No Status: Acute Base Code: R53.81 - OTHER MALAISE Comment : 09/28/17 - s/p cervical laminectomy wtih bilateral foraminotomies C2-3. Daily PT/OT/ambulation with walker and assist. Fall precuations. - improving mobility with ambulation down the [address]. (3) Hypokalemia Current Visit: Yes Status: Acute Base Code: E87.6 - HYPOKALEMIA Comment: K + 3.1 - replete with 60 meq now - repeat potassium with morning labs. - decrease diuretric dosing (4) DVT prophylaxis Current Visit: No Status: Acute Base Code: [id number] - Comment: 09/28/17- Coumadin management for DVt prophylaxis and chronic anticoagulation therapy for history of PAF s/p CV - Cont to dose Warfarin with PT/INR check per pharmacy protocol. (5) Anemia Current Visit: No Status: Chronic Base Code: D64.9 - ANEMIA, UNSPECIFIED Comment: 09/28/17 - stable at 9.8, no active bleeding - pt on Lovenox with Warfarin bridging - ferrous sulphate TID and cont bowel regimen. (6) Acute worsening of stage 3 chronic kidney disease Current Visit: Yes Status: Acute Base Code: N18.3 - CHRONIC KIDNEY DISEASE, STAGE 3 (MODERATE) Comment: - mild elevation in Cr 1.6 --> 1.8, GFR 39 - pt on diuretcis and was on Vancomycin x 8 days. - cont to trend and avoind nephrotoxins. - currently on 2 liters fluid restriction.
[2017-09-28] MEDS ORDERED: POTASSIUM CHLORIDE 20 MEQ TABLET PO ONE (08:57)
[2017-09-28] MEDS: BREO (FLUTICASONE/VILANTEROL) 200MCG/25MCG INHALER INH SCH (10:00)
[2017-09-28] MEDS: ASCORBIC ACID 500 MG TAB PO SCH ×2 (10:08→21:42)
[2017-09-28] MEDS: AMIODARONE HCL 200 MG TABLET PO SCH (10:08)
[2017-09-28] MEDS: BUMETANIDE 1 MG TABLET PO SCH ×2 (10:08→16:57)
[2017-09-28] MEDS: POTASSIUM CHLORIDE 20 MEQ TABLET PO SCH ×2 (10:08→21:42)
[2017-09-28] MEDS: MAGNESIUM OXIDE 400 MG TABLET PO SCH (10:09)
[2017-09-28] MEDS: MULTIVITAMINS/MINERALS TABLET PO SCH (10:09)
[2017-09-28] MEDS: FERROUS SULFATE 325 MG TAB PO SCH (10:09)
[2017-09-28] MEDS: BIFIDOBACTERIUM INFANTIS 4 MG CAPSULE PO SCH (10:09)
[2017-09-28] MEDS: CHOLECALCIFEROL 1,000 UNIT TABLET PO SCH (10:09)
[2017-09-28] MEDS: TAMSULOSIN HCL 0.4 MG CAP.ER.24H PO SCH (10:09)
[2017-09-28] MEDS: METOPROLOL TART 25 MG TABLET PO SCH ×2 (10:19→21:42)
[2017-09-28] MEDS: 0.9 % SODIUM CHLORIDE 10ML SYR IVP SCH (10:19)
[2017-09-28] MEDS: ENOXAPARIN 40 MG/0.4 ML SYR SQ SCH (10:19)
[2017-09-28] MEDS: HEPARIN SODIUM FLUSH 100 UNITS/ML SYR 5ML IVP SCH (10:19)
[2017-09-28] MEDS: METOLAZONE 2.5 MG TABLET PO SCH (10:21)
[2017-09-28] MEDS ORDERED: METOLAZONE 2.5 MG TABLET PO SCH (10:37)
[2017-09-28] MEDS: OXYCODONE/APAP 10MG-325MG TABLET PO PRN (14:30)
[2017-09-28] MEDS: WARFARIN 1 MG TABLET PO SCH (16:57)
[2017-09-28] MEDS: RANITIDINE HCL 150 MG TABLET PO SCH (21:42)
[2017-09-28] MEDS: ATORVASTATIN 20 MG TABLET PO SCH (21:42)
[2017-09-28] MEDS: SENNOSIDES/DOCUSATE SODIUM UD CAPSULE PO SCH (21:42)
[2017-09-28] MEDS: LEVEMIR FLEXTOUCH 100 UNIT/ML INSULIN PEN SQ SCH (21:43)
[2017-09-29] MEDS: LEVOTHYROXINE SODIUM 125 MCG TABLET PO SCH (06:41)
[2017-09-29] MEDS: 0.9 % SODIUM CHLORIDE 10ML SYR IVP SCH (09:12)
[2017-09-29] MEDS: BIFIDOBACTERIUM INFANTIS 4 MG CAPSULE PO SCH (09:12)
[2017-09-29] MEDS: MULTIVITAMINS/MINERALS TABLET PO SCH (09:13)
[2017-09-29] MEDS: BUMETANIDE 1 MG TABLET PO SCH ×2 (09:13→15:28)
[2017-09-29] MEDS: POTASSIUM CHLORIDE 20 MEQ TABLET PO SCH ×2 (09:14→22:56)
[2017-09-29] MEDS: TAMSULOSIN HCL 0.4 MG CAP.ER.24H PO SCH (09:14)
[2017-09-29] MEDS: FERROUS SULFATE 325 MG TAB PO SCH (09:14)
[2017-09-29] MEDS: HEPARIN SODIUM FLUSH 100 UNITS/ML SYR 5ML IVP SCH (09:14)
[2017-09-29] MEDS: METOPROLOL TART 25 MG TABLET PO SCH ×2 (09:15→22:57)
[2017-09-29] MEDS: CHOLECALCIFEROL 1,000 UNIT TABLET PO SCH (09:16)
[2017-09-29] MEDS: MAGNESIUM OXIDE 400 MG TABLET PO SCH (09:16)
[2017-09-29] MEDS: ASCORBIC ACID 500 MG TAB PO SCH ×2 (09:16→22:56)
[2017-09-29] MEDS: AMIODARONE HCL 200 MG TABLET PO SCH (09:16)
[2017-09-29] MEDS: BREO (FLUTICASONE/VILANTEROL) 200MCG/25MCG INHALER INH SCH (10:08)
[2017-09-29] MEDS: OXYCODONE/APAP 10MG-325MG TABLET PO PRN ×2 (11:05→22:56)
--- NOTE | 2017-09-29 12:11 | Physical Therapy Tx Note ---
Physical Therapy Tx Note - Treatment Note Tolerated: Good Total Time Spent With Patient: 30 Physical Therapy Tx Note: Detail (The patient was up in chair when PT arrived. The patient ambulated with wheeled walker a distance of 260 feet x 1. The patient had complaints of cervical pain and R shoulder pain with ambulation. The patient completed R shoulder exercises AROM flexion, rotation, bicep curls. LE strengthening exercises blue band hip abduction until fatigued, hip adductor squeezes, hip marching, LAQ until fatigued. The patient had improve ambulation endurance this am.) Physical Therapy Problem List: Detail (1) Decreased LE strength 2) Assistance with bed mobility 3) Decreased ability to complete sustained physical activity 4 ) Cervical pain with activity) Physical Therapy Goals: 1) Assess bed mobility. 2) The patient will ambulate on levels with appropriate assistive device independently community distances. 3) Increase LE strength 1/3 muscle grade. 4) Independent with bed mobilty. 5) The patient will ambulate on stairs with supervision for safety. Physical Therapy Plan: PT 1-2 times a day for gait training, transfer training, bed mobility, LE strengthening exercises.
--- NOTE | 2017-09-29 13:32 | Physical Therapy Tx Note ---
Physical Therapy Tx Note - Treatment Note Tolerated: Good Total Time Spent With Patient: 15 Physical Therapy Tx Note: Detail (The patient reported he was "sore" but wanted to attempt ambulating with 2 canes. The patient ambulated with two standard canes with CG of 1 for safety a distance of 54 feet x 1 and 54 feet x1 with wheeled walker. The patient was too painful ( R shoulder) to complete further activity. MHP was place on R shoulder x 15 minutes. The patient continues to progress well.) Physical Therapy Problem List: Detail (1) Decreased LE strength 2) Assistance with bed mobility 3) Decreased ability to complete sustained physical activity 4 ) Cervical pain with activity) Physical Therapy Goals: 1) Assess bed mobility. 2) The patient will ambulate on levels with appropriate assistive device independently community distances. 3) Increase LE strength 1/3 muscle grade. 4) Independent with bed mobilty. 5) The patient will ambulate on stairs with supervision for safety. Physical Therapy Plan: PT 1-2 times a day for gait training, transfer training, bed mobility, LE strengthening exercises.
[2017-09-29] MEDS: WARFARIN 1 MG TABLET PO SCH (15:27)
[2017-09-29] MEDS: RANITIDINE HCL 150 MG TABLET PO SCH (22:56)
[2017-09-29] MEDS: ATORVASTATIN 20 MG TABLET PO SCH (22:56)
[2017-09-29] MEDS: SENNOSIDES/DOCUSATE SODIUM UD CAPSULE PO SCH (22:59)
[2017-09-29] MEDS: LEVEMIR FLEXTOUCH 100 UNIT/ML INSULIN PEN SQ SCH (23:00)
[2017-09-30] MEDS: LEVOTHYROXINE SODIUM 125 MCG TABLET PO SCH (07:15)
[2017-09-30 09:02] LABS: INR 1.72; PROTHROMBIN TIME (PATIENT) 18.7 SECONDS (9.5-12.1)
[2017-09-30] MEDS: 0.9 % SODIUM CHLORIDE 10ML SYR IVP SCH (09:25)
[2017-09-30] MEDS: BIFIDOBACTERIUM INFANTIS 4 MG CAPSULE PO SCH (09:26)
[2017-09-30] MEDS: BUMETANIDE 1 MG TABLET PO SCH ×2 (09:26→15:59)
[2017-09-30] MEDS: MULTIVITAMINS/MINERALS TABLET PO SCH (09:27)
[2017-09-30] MEDS: HEPARIN SODIUM FLUSH 100 UNITS/ML SYR 5ML IVP SCH (09:28)
[2017-09-30] MEDS: FERROUS SULFATE 325 MG TAB PO SCH (09:28)
[2017-09-30] MEDS: POTASSIUM CHLORIDE 20 MEQ TABLET PO SCH ×2 (09:28→21:55)
[2017-09-30] MEDS: TAMSULOSIN HCL 0.4 MG CAP.ER.24H PO SCH (09:28)
[2017-09-30] MEDS: MAGNESIUM OXIDE 400 MG TABLET PO SCH (09:29)
[2017-09-30] MEDS: METOPROLOL TART 25 MG TABLET PO SCH ×2 (09:29→21:56)
[2017-09-30] MEDS: ASCORBIC ACID 500 MG TAB PO SCH ×2 (09:30→21:58)
[2017-09-30] MEDS: AMIODARONE HCL 200 MG TABLET PO SCH (09:30)
[2017-09-30] MEDS: CHOLECALCIFEROL 1,000 UNIT TABLET PO SCH (09:31)
[2017-09-30] MEDS: BREO (FLUTICASONE/VILANTEROL) 200MCG/25MCG INHALER INH SCH (09:33)
--- NOTE | 2017-09-30 11:39 | Physical Therapy Tx Note ---
Physical Therapy Tx Note - Treatment Note Tolerated: Good Total Time Spent With Patient: 30 Physical Therapy Tx Note: Detail (Pt was found sitting upright in chair with cervical collar already applied. Pt stood independently and gait belt was applied. Pt ambulated 326 feet using 2 canes. Pt required contact gaurd assist , but ambulated well. Pt did require 2 rest periods. One was at usp for ~ 30 seconds, and the next was at the 2/3 point for ~60 seconds. Pt expressed fatigue and pain in the neck and UE upon completing ambulation. Pt was assisted back into the chair to a reclined position and assisted with application of pneumatic compression device. Pt was left with water and call button within reach.) Physical Therapy Problem List: Detail (1) Decreased LE strength 2) Assistance with bed mobility 3) Decreased ability to complete sustained physical activity 4 ) Cervical pain with activity) Physical Therapy Goals: 1) Assess bed mobility. 2) The patient will ambulate on levels with appropriate assistive device independently community distances. 3) Increase LE strength 1/3 muscle grade. 4) Independent with bed mobilty. 5) The patient will ambulate on stairs with supervision for safety. Prognosis: Good Physical Therapy Plan: PT 1-2 times a day for gait training, transfer training, bed mobility, LE strengthening exercises.
[2017-09-30] MEDS: OXYCODONE/APAP 10MG-325MG TABLET PO PRN (13:21)
--- NOTE | 2017-09-30 13:48 | Physical Therapy Tx Note ---
Physical Therapy Tx Note - Treatment Note Tolerated: Good Total Time Spent With Patient: 35 Physical Therapy Tx Note: Detail (The patient was up in chair when PT arrived. The patient ambulated with 2 canes 120 feet x 1 without a rest period with CG for safety. The patient completed the following UE exercises: active shoulder flexion, R external rotation with green band and bilateral bicep curls with green band x 10 reps. LE strengthening exercises with blue band hip abduction, hamstring curls, LAQ until fatigued and hip adductor squeezes and hip marches until fatigued. The patient is progressing well with increased ambulation distance and less pain complaints.) Physical Therapy Problem List: Detail (1) Decreased LE strength 2) Assistance with bed mobility 3) Decreased ability to complete sustained physical activity 4 ) Cervical pain with activity) Physical Therapy Goals: 1) Assess bed mobility. 2) The patient will ambulate on levels with appropriate assistive device independently community distances. 3) Increase LE strength 1/3 muscle grade. 4) Independent with bed mobilty. 5) The patient will ambulate on stairs with supervision for safety. Physical Therapy Plan: PT 1-2 times a day for gait training, transfer training, bed mobility, LE strengthening exercises.
[2017-09-30] MEDS: WARFARIN 1 MG TABLET PO SCH (16:00)
[2017-09-30] MEDS: ATORVASTATIN 20 MG TABLET PO SCH (21:55)
[2017-09-30] MEDS: SENNOSIDES/DOCUSATE SODIUM UD CAPSULE PO SCH (21:58)
[2017-09-30] MEDS: RANITIDINE HCL 150 MG TABLET PO SCH (21:58)
[2017-09-30] MEDS: LEVEMIR FLEXTOUCH 100 UNIT/ML INSULIN PEN SQ SCH (21:59)
[2017-10-01] MEDS: OXYCODONE/APAP 10MG-325MG TABLET PO PRN (00:06)
[2017-10-01] MEDS: LEVOTHYROXINE SODIUM 125 MCG TABLET PO SCH (06:43)
[2017-10-01 08:34] LABS: CREATININE 1.8 mg/dL (0.7-1.2)
[2017-10-01] MEDS: BREO (FLUTICASONE/VILANTEROL) 200MCG/25MCG INHALER INH SCH (09:34)
[2017-10-01] MEDS: MULTIVITAMINS/MINERALS TABLET PO SCH (09:45)
[2017-10-01] MEDS: BIFIDOBACTERIUM INFANTIS 4 MG CAPSULE PO SCH (09:45)
[2017-10-01] MEDS: FERROUS SULFATE 325 MG TAB PO SCH (09:45)
[2017-10-01] MEDS: BUMETANIDE 1 MG TABLET PO SCH (09:45)
[2017-10-01] MEDS: HEPARIN SODIUM FLUSH 100 UNITS/ML SYR 5ML IVP SCH (09:45)
[2017-10-01] MEDS: 0.9 % SODIUM CHLORIDE 10ML SYR IVP SCH (09:45)
[2017-10-01] MEDS: TAMSULOSIN HCL 0.4 MG CAP.ER.24H PO SCH (09:45)
[2017-10-01] MEDS: MAGNESIUM OXIDE 400 MG TABLET PO SCH (09:45)
[2017-10-01] MEDS: METOPROLOL TART 25 MG TABLET PO SCH (09:46)
[2017-10-01] MEDS: CHOLECALCIFEROL 1,000 UNIT TABLET PO SCH (09:46)
[2017-10-01] MEDS: AMIODARONE HCL 200 MG TABLET PO SCH (09:46)
[2017-10-01] MEDS: POTASSIUM CHLORIDE 20 MEQ TABLET PO SCH ×2 (09:47→11:12)
[2017-10-01] MEDS: ASCORBIC ACID 500 MG TAB PO SCH (09:47)
[2017-10-01] MEDS ORDERED: POTASSIUM CHLORIDE 20 MEQ TABLET PO SCH (10:30)
[2017-10-01] MEDS ORDERED: METOLAZONE 2.5 MG TABLET PO ONE (11:15)
[2017-10-01] MEDS ORDERED: SODIUM CHLORIDE 0.9% IVP SCH (11:45)
[2017-10-01] MEDS ORDERED: BUMETANIDE IVP SCH (11:45)
--- NOTE | 2017-10-01 13:58 | Rehab Discharge Summary ---
Patient Information - Patient Information Diagnosis: deconditioning d/t pneumonia, RLE cellulitis, C2-3 laminectomy Ordered Treatment: PT Evaluate and Treat Surgery: Yes (Laminectomy C2-C3) Date of Surgery: 09/11/17 History: Detail (Patient was previously an inpatient and is now transferred to the Swing Bed Unit for Rehabilitation.) Past Medical/Surgical Hx: PAST MEDICAL/SURGICAL HISTORY Past Surgical History pump trial with dilaudid implanted cath ( permanent device in place) Back surgery X5, neck surgery, Hip & shoulder sx ,Bunionectomy,bilat right hip replacement, AICD , abscess rt thigh, septic hip, hematoma rt thigh , revision x2, evac of hematoma post rt hip; lumbar rhizotomy 05/31/15. permanent pain pump 2016 C2-3 lminectomy 09/19 PMH - Respiratory Hx Respiratory Disorders Yes Hx Pneumonia Yes: 1989, current 2016 Hx of SOB Yes: occass PMH - Cardiovascular Hx Cardiovascular Disorders Yes Hx Abnormal EKG Yes Hx Congestive Heart Failure Yes Hx Deep Vein Thrombosis Yes: 20 years ago after being kicked by a cow, current rt ankle 01/2017 Hx Edema Yes: bilat legs recent hospitalization Hx Hypertension Yes Hx Irregular Heartbeat Yes: hx a fib had cardioversion 1990 & 01/2017 Hx Pacemaker/Defibrillator Yes: 2014 Comment: hospitalizations states cardiac arrest during past hospitalization 07/18 PMH - Neuro Hx Neurological Disorders No Hx Neuropathy Yes: rt hand Hx Seizures No: denies PMH - GI Hx Gastrointestinal Disorders Yes Hx Gastroesophageal Reflux denies reflux Hx Weight Loss/Weight Gain No PMH - Hx Genitourinary Disorders No Hx Bladder Problem Yes: retention Hx Prostate Problems No: pt states no but on flomax Hx Urinary Tract Infection Yes PMH - Endocrine Hx Endocrine Disorders Yes Hx Diabetes Yes Hx Thyroid Disease Yes Hx of NIDDM Yes Hx of IDDM Yes Comment: checks blood sugars bid (100-140)/ulcers on feet due to poor circulation PMH - Musculoskeletal Hx Musculoskeletal Disorders Yes Hx Arthritis Yes Hx Back Injury Yes Hx Musculoskeletal Disease Yes Comment: chronic pain; hx septic hip in past PMH - Psych Hx Psychiatric Problems No PMH - Hematology/Oncology Hx Hematology/Oncology Yes Disorders Hx Anemia Yes Hx Bruising Yes Hx Cancer Yes: skin Hx Clotting Problems Yes Hx Blood Transfusion Reaction No Comment: pt to bridge with Lovenox 4 days preop Premorbid Status: Detail (Pt lives alone in a 1 story house with 3 steps and one handrail at the entrance. He has 2 bathrooms, one has a shower stall as well as an elevated toilet seat with grab bar, the second bathroom has a tub/ shower combination and standard height toilet with grab bar. He was Ind with all ADLs/IADLs prior to surgery. Patient was independent with all mobility prior to surgery and ambulatory with 2 canes.) Social History: Detail (Supportive daughter.) Precautions: [place], Fall, Other (Contact isolation and no lifting greater than 10#.) Subjective Information - Subjective Information Per Patient (The patient has complaints of cervical pain following ambulation. The patient has less complaints of R groin region pain overall.) Objective Data - Mental Status Patient Orientation: Oriented x3 - Visual Perception Appears within normal limits for therapeutic activities - ROM Not within normal limits (The patient has limited cervical AROM in all motions. LE AROM is WFL.) - Strength/Tone Not within normal limits (LE strength: hip flexors R 3+/5, L 4/5,hip abductors R 3+/5, L 4-/5' hip adductors 4-/5, hip extensors B 3/5, rotators were not tested, knee flexors L 4+/5, R 4/5, quads R4/5 L 4+/5.) - Bed Mobility Needs Assist (Bed mobility was not re-evaluated.) - Transfers Independent (Independent sit to and from stand transfer.) - Balance Balance Sitting: Good Balance Standing: Fair (The patient was able to balance without support.) - Gait Detail (The patient ambulates with 2 canes with CG distances of 125 feet x 1 and with wheeled walker with supervision for safety 175 feet x 1. The patient continues to complain of cervical pain with ambulation.) Therapy Assessment - Therapy Assessment Detail (The patient has improved LE strength and improved mobility. The patient is transferred to inpatient status due to medical status.) Problem List - Problem List Physical Therapy Problem List: Detail (1) Decreased LE strength 2) Assistance with bed mobility 3) Decreased ability to complete sustained physical activity 4 ) Cervical pain with activity) Occupational Therapy Problem List: Detail (1. Decrease UE strength, ROM and overall endurance needed for safe and Ind ADLs/IADLs. 2. Decreased Ind with LE ADLs. 3. Need to assess shower safety and Ind.) Goals - Goals Physical Therapy Goals: GOALS MET: 1) Assess bed mobility. GOALS PARTIALLY MET : 2) The patient will ambulate on levels with appropriate assistive device independently community distances. 3) Increase LE strength 1/3 muscle grade. 4 ) Independent with bed mobilty. GOAL NOT MET: 5) The patient will ambulate on stairs with supervision for safety. Occupational Therapy Goals: 1. Pt will demonstrate improved overall endurance and UE strength/ROM to allow safe and Ind ADLs/IADLs. 2. Pt will be Ind with LE self cares using adaptive equipment as needed. 3. Pt will be safe and Ind with showering. Plan - Plan Physical Therapy Plan: The patient is discharged from Swing Bed status to inpatient status. Will continue PT as ordered as an inpatient. Occupational Therapy Plan: OT 2-4 times per week to address self cares, functional mobility, UE function/strength and overall endurance to allow safe and Ind return home.
[2017-10-02] MEDS ORDERED: METOLAZONE 2.5 MG TABLET PO SCH (10:00)
--- NOTE | 2017-10-03 07:35 | Rehab Discharge Summary ---
Patient Information - Patient Information Diagnosis: deconditioning d/t pneumonia, RLE cellulitis, C2-3 laminectomy Ordered Treatment: OT Evaluate and Treat Surgery: Yes (Laminectomy C2-C3) Date of Surgery: 09/11/17 History: Detail (Patient was previously an inpatient and is now transferred to the Swing Bed Unit for Rehabilitation.) Past Medical/Surgical Hx: PAST MEDICAL/SURGICAL HISTORY Past Surgical History pump trial with dilaudid implanted cath ( permanent device in place) Back surgery X5, neck surgery, Hip & shoulder sx ,Bunionectomy,bilat right hip replacement, AICD , abscess rt thigh, septic hip, hematoma rt thigh , revision x2, evac of hematoma post rt hip; lumbar rhizotomy 05/31/15. permanent pain pump 2016 C2-3 lminectomy 09/19 PMH - Respiratory Hx Respiratory Disorders Yes Hx Pneumonia Yes: 1989, current 2016 Hx of SOB Yes: occass PMH - Cardiovascular Hx Cardiovascular Disorders Yes Hx Abnormal EKG Yes Hx Congestive Heart Failure Yes Hx Deep Vein Thrombosis Yes: 20 years ago after being kicked by a cow, current rt ankle 01/2017 Hx Edema Yes: bilat legs recent hospitalization Hx Hypertension Yes Hx Irregular Heartbeat Yes: hx a fib had cardioversion 1990 & 01/2017 Hx Pacemaker/Defibrillator Yes: 2014 Comment: hospitalizations states cardiac arrest during past hospitalization 07/18 PMH - Neuro Hx Neurological Disorders No Hx Neuropathy Yes: rt hand Hx Seizures No: denies PMH - GI Hx Gastrointestinal Disorders Yes Hx Gastroesophageal Reflux denies reflux Hx Weight Loss/Weight Gain No PMH - Hx Genitourinary Disorders No Hx Bladder Problem Yes: retention Hx Prostate Problems No: pt states no but on flomax Hx Urinary Tract Infection Yes PMH - Endocrine Hx Endocrine Disorders Yes Hx Diabetes Yes Hx Thyroid Disease Yes Hx of NIDDM Yes Hx of IDDM Yes Comment: checks blood sugars bid (100-140)/ulcers on feet due to poor circulation PMH - Musculoskeletal Hx Musculoskeletal Disorders Yes Hx Arthritis Yes Hx Back Injury Yes Hx Musculoskeletal Disease Yes Comment: chronic pain; hx septic hip in past PMH - Psych Hx Psychiatric Problems No PMH - Hematology/Oncology Hx Hematology/Oncology Yes Disorders Hx Anemia Yes Hx Bruising Yes Hx Cancer Yes: skin Hx Clotting Problems Yes Hx Blood Transfusion Reaction No Comment: pt to bridge with Lovenox 4 days preop Premorbid Status: Detail (Pt lives alone in a 1 story house with 3 steps and one handrail at the entrance. He has 2 bathrooms, one has a shower stall as well as an elevated toilet seat with grab bar, the second bathroom has a tub/ shower combination and standard height toilet with grab bar. He was Ind with all ADLs/IADLs prior to surgery. Patient was independent with all mobility prior to surgery and ambulatory with 2 canes.) Social History: Detail (Supportive daughter.) Precautions: [place], Fall, Other (Contact isolation and no lifting greater than 10#.) Objective Data - Pain Pain Present: Yes (neck pain) - Mental Status Patient Orientation: Oriented x3 - Visual Perception Appears within normal limits for therapeutic activities - ROM Not within normal limits (Ozzy shoulder flexion limited to approx. 110 degrees, ozzy elbow, wrist and hand AROM WNL.) - Strength/Tone Not within normal limits (Ozzy UE strength not formally assessed due to surgical precautions, grossly 4-/5 per observation.) - Coordination Appears within normal limits for therapeutic activities - Bed Mobility Needs Assist (Min assist for supine to sit.) - Transfers Independent - Balance Balance Sitting: Good Balance Standing: Fair - Sensation Intact - Gait Detail (Pt ambulating in room with 2 wheeled walker.) - ADL's/IADL's Detail (Pt is Ind with sponge bathing at sink and total body dressing with exception of feet/socks/slippers.) Therapy Assessment - Therapy Assessment Detail (Pt continues with decreased endurance and decreased Ind with LE ADLs and UE functional use for overhead activities.) Problem List - Problem List Physical Therapy Problem List: Detail (1) Decreased LE strength 2) Assistance with bed mobility 3) Decreased ability to complete sustained physical activity 4 ) Cervical pain with activity) Occupational Therapy Problem List: Detail (1. Decrease UE strength, ROM and overall endurance needed for safe and Ind ADLs/IADLs. 2. Decreased Ind with LE ADLs. 3. Need to assess shower safety and Ind.) Goals - Goals Physical Therapy Goals: GOALS MET: 1) Assess bed mobility. GOALS PARTIALLY MET : 2) The patient will ambulate on levels with appropriate assistive device independently community distances. 3) Increase LE strength 1/3 muscle grade. 4 ) Independent with bed mobilty. GOAL NOT MET: 5) The patient will ambulate on stairs with supervision for safety. Occupational Therapy Goals: Goals not met: 1. Pt will demonstrate improved overall endurance and UE strength/ROM to allow safe and Ind ADLs/IADLs. 2. Pt will be Ind with LE self cares using adaptive equipment as needed. 3. Pt will be safe and Ind with showering. Prognosis - Prognosis Good Plan - Plan Physical Therapy Plan: The patient is discharged from Swing Bed status to inpatient status. Will continue PT as ordered as an inpatient. Occupational Therapy Plan: Pt discharged from swing bed to inpatient status. Will continue OT as pt is able per new order.
== END 2017-10-01 11:45 | disposition short-term general hospital (02) | DRG 948 ==
LOC: MEDSURG 14:35
PROVIDERS: ADMIT Internal Medicine; ATTEND Internal Medicine
DX: R53.81 Other malaise (principal); L03.115 Cellulitis of right lower limb; M50.30 Other cervical disc degeneration, unspecified cervical region; E03.9 Hypothyroidism, unspecified; R60.0 Localized edema; N18.3 Chronic kidney disease, stage 3 (moderate); I50.9 Heart failure, unspecified; E11.9 Type 2 diabetes mellitus without complications; J44.9 Chronic obstructive pulmonary disease, unspecified; Z79.4 Long term (current) use of insulin; D64.9 Anemia, unspecified; E87.6 Hypokalemia
CPT/HCPCS: 36416; 80048; 80051; 80053; 82948; 85025; 85610; 86140; 97110; 97116; 97165; 97530; 99306; 99309; J1650; J3370; J7050; J7613

== ENCOUNTER 2017-10-01 11:45 | Inpatient (IN) | payer MEDICARE, OTHER ==
[~2017-10-01 11:45] MED LIST: BUMETANIDE IVP SCH; SODIUM CHLORIDE 0.9% IVP SCH
[2017-10-01] MEDS: BUMETANIDE IVPB SCH (11:45)
[2017-10-01] MEDS: SODIUM CHLORIDE 0.9% IVPB SCH (11:45)
[2017-10-01] MEDS ORDERED: ACETAMINOPHEN 500 MG TABLET PO PRN (14:54)
[2017-10-01] MEDS ORDERED: ALBUTEROL SULFATE (0.083%) 2.5 MG/3 ML NEB INH PRN (14:55)
[2017-10-01] MEDS ORDERED: CLOTRIMAZOLE/BETAMET 15 GM TUBE TOP PRN (15:02)
[2017-10-01] MEDS ORDERED: POLYETHYLENE GLY 17 GM PACKET PO PRN (15:03)
[2017-10-01] MEDS ORDERED: LOPERAMIDE 2 MG CAPSULE PO PRN (15:03)
[2017-10-01] MEDS ORDERED: ONDANSETRON 4 MG ODT TABLET SL PRN (15:05)
--- NOTE | 2017-10-01 15:34 | Rehab Evaluation ---
Patient Information - Patient Information Diagnosis: Heart Failure Ordered Treatment: PT Evaluate and Treat Status: Initial Evaluation Surgery: Yes (cervical laminectomy C2/C3) Date of Surgery: 09/11/17 Past Medical/Surgical Hx: PAST MEDICAL/SURGICAL HISTORY Past Surgical History pump trial with dilaudid implanted cath ( permanent device in place) Back surgery X5, neck surgery, Hip & shoulder sx ,Bunionectomy,bilat right hip replacement, AICD , abscess rt thigh, septic hip, hematoma rt thigh , revision x2, evac of hematoma post rt hip; lumbar rhizotomy 05/31/15. permanent pain pump 2015 C2-3 lminectomy 09/19 PMH - Respiratory Hx Respiratory Disorders Yes Hx Pneumonia Yes: 1989, current 2016 Hx of SOB Yes: occass PMH - Cardiovascular Hx Cardiovascular Disorders Yes Hx Abnormal EKG Yes Hx Congestive Heart Failure Yes Hx Deep Vein Thrombosis Yes: 20 years ago after being kicked by a cow, current rt ankle 01/2017 Hx Edema Yes: bilat legs recent hospitalization Hx Hypertension Yes Hx Irregular Heartbeat Yes: hx a fib had cardioversion 1990 & 01/2017 Hx Pacemaker/Defibrillator Yes: 2014 Comment: hospitalizations states cardiac arrest during past hospitalization 07/18 PMH - Neuro Hx Neurological Disorders No Hx Neuropathy Yes: rt hand Hx Seizures No: denies PMH - GI Hx Gastrointestinal Disorders Yes Hx Gastroesophageal Reflux denies reflux Hx Weight Loss/Weight Gain No PMH - Hx Genitourinary Disorders No Hx Bladder Problem Yes: retention Hx Prostate Problems No: pt states no but on flomax Hx Urinary Tract Infection Yes PMH - Endocrine Hx Endocrine Disorders Yes Hx Diabetes Yes Hx Thyroid Disease Yes Hx of NIDDM Yes Hx of IDDM Yes Comment: checks blood sugars bid (100-140)/ulcers on feet due to poor circulation PMH - Musculoskeletal Hx Musculoskeletal Disorders Yes Hx Arthritis Yes Hx Back Injury Yes Hx Musculoskeletal Disease Yes Comment: chronic pain; hx septic hip in past PMH - Psych Hx Psychiatric Problems No PMH - Hematology/Oncology Hx Hematology/Oncology Yes Disorders Hx Anemia Yes Hx Bruising Yes Hx Cancer Yes: skin Hx Clotting Problems Yes Hx Blood Transfusion Reaction No Comment: pt to bridge with Lovenox 4 days preop Premorbid Status: Detail (Prior to his recent surgery the patient was ambulatory with two canes.) Social History: Detail (The patient lives in a one story home with 3 steps at the enterance and one handrail. The patient has two bathrooms, one with a shower stall and elevated toilet seat with grab bars and one with a tub/shower combination and a standard toilet with grab bars. The patient a standard canes with wide base of support and two wheeled walker.) Precautions: [place], Fall, Other (contact isolation) - Time With Patient Total Time Spent With Patient (Min): 30 Treatment Procedures: Detail (Initial Evaluation, gait training and completion of LE strengthening exercises including : blue band hip abduction, hip adductor squeezes, hip marching, gluteal sets, LAQ and blue band hamstring curls all reps until fatigued. Increased pain was noted with right hip flexion.) Subjective Information - Subjective Information Per Patient (The patient has complaints today of bilateral groin region soreness and cervical pain with ambulation. The patient did not rate his pain using the 0 to 10 pain scale.) Objective Data - Mental Status Patient Orientation: Oriented x3 - Visual Perception Appears within normal limits for therapeutic activities - ROM Within normal limits (The patient's LE AROM is WFL. Refer to OT note for UE AROM limitations.) - Strength/Tone Not within normal limits (The patient's LE strength is as follows: hip flexors R 3+/5, L 4/5, hip abductors R 3+/5, L 4/5, hip extensors bilaterally 3/5, hip adductors 4/5, rotators were WNL, knee flexors L 4+/5, R 4/5, Quadriceps R 4/5, L 4+/5, ankle musculature 4+/5. Refer to OT note for UE strength grades.) - Bed Mobility Needs Assist (Bed mobility was not re-evaluated.) - Transfers Independent (The patient was independent with sit to and from stand transfer.) - Balance Balance Sitting: Good Balance Standing: Fair (The patient is able to stand briefly without support.) - Gait Detail (The patient ambulated with wheeled walker with supervision for safety only and assist with IV, without soft cervical brace a distance of 140 feet x 1. The patient stood with 2 canes but did not want to ambulate with them this afternoon due to fatigue.) Therapy Assessment - Therapy Assessment Detail (The patient has decreased ability to complete sustained physical activity and decreased LE strength. The patient continues to have cervical pain with prolonged ambulation. Feel the patient would benefit from PT to improve functional level.) Problem List - Problem List Physical Therapy Problem List: Detail (1) Cervical pain with ambulation 2) Decreased LE strength 3) Decreased ability to complete sustained physical activity. 4) Non ambulatory on stairs) Goals - Goals Physical Therapy Goals: 1) Re-evaluate bed mobility. 2) Increased LE strength 1 /3 muscle grade to increase stability of gait. 3) The patient will be independent with ambulation with assistive device community distances ( 200 feet plus). 4) Independent ambulation on stairs with use of railings. 5) Independent with bed mobility and all transfers Prognosis - Prognosis Good Plan - Plan Physical Therapy Plan: PT 1-2 times a day for transfer training, bed mobility, gait training, LE strengthening exercises.
[2017-10-01] MEDS: OXYCODONE/APAP 10MG-325MG TABLET PO PRN ×2 (16:25→22:31)
[2017-10-01] MEDS: WARFARIN 1 MG TABLET PO SCH (16:26)
--- NOTE | 2017-10-01 17:03 | Medical Records Consult ---
DATE OF CONSULTATION: 10/01/17 INDICATION: EDEMA. HISTORY: This 77-year-old male patient, well-known to [facility], has a history of diastolic heart failure, I believe to be diastolic heart failure; his last office note says chronic diastolic heart failure and then in the History of Present Illness it says chronic systolic dysfunction. He was recently hospitalized at [facility] for deconditioning, pneumonia, and he also recently had a C2-C3 fusion that seemed to go fine. During his rehabilitation stay, he had gained about 15 pounds of his classic lower extremity edema. He is not having any chest pain. He has a history of atrial fibrillation with cardioversions this past spring. There is no evidence of any recurrent atrial fibrillation on his pacemaker checks. PAST MEDICAL HISTORY: Ventricular tachycardia. Chronic diastolic heart failure. CAD. Non-rheumatic mitral valve insufficiency. Persistent atrial fibrillation. 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 Shortness of breath. ALLERGIES: NO KNOWN DRUG ALLERGIES. MEDICATIONS, CURRENT: Tylenol 500 mg, 1000 mg p.o. every six hours prn fever Albuterol Sulfate 2.5 mg inhaler respiratory every six hours prn Amiodarone 200 mg daily Ascorbic Acid 1000 mg p.o. b.i.d. Lipitor 20 mg daily Bumex 2 mg p.o. b.i.d. Lotrisone 0.5 mg topical b.i.d. prn Lovenox 40 mg subcut daily, stopped on 09/24/17 Iron Sulfate 325 mg daily Insulin 6 units subcut every h.s. Synthroid 125 mcg daily Imodium 2 mg every four hours Magnesium Oxide 400 mg daily Zaroxolyn 2.5 mg p.o. Friday and Metoprolol Tartrate 12.5 mg b.i.d. Oxycodone/Acetaminophen one each p.o. every four hours prn Potassium Chloride 20 mEq b.i.d. Ranitidine 150 mg p.o. daily Flomax 0.4 mg daily Warfarin 2 mg p.o. daily REVIEW OF SYSTEMS: GENERAL: No recent current fevers, chills, night sweats. HEENT: No acute hearing/vision changes. CARDIOVASCULAR: No chest pain. No palpitations. Positive history of CAD, A-fib, heart failure with preserved ejection fraction. PULMONARY: No cough, hemoptysis. No dyspnea though he has not been very active during his hospital stay. GI: No nausea or vomiting. No tarry or bloody stool. : No dysuria or hematuria. ENDOCRINE: Positive for diabetes. HEME: No unexplained bruising or bleeding. NEUROMUSCULAR: Denies any strokes, seizure history. PHYSICAL EXAM: VITAL SIGNS: Temperature 97.5. Pulse 71. Blood pressure 106/60. Respirations 16. 92% on room air. GENERAL: Alert and in no apparent distress. HEENT: Normocephalic/atraumatic. NECK: Supple. No JVD. No carotid bruits. CARDIOVASCULAR: Rhythm regular. Soft systolic ejection murmur. ABDOMEN: Obese, nontender. Positive bowel sounds. EXTREMITIES: 3+ pretibial edema. The patient states he has had this before. He also has some mild erythema. He has had cellulitis recently, which has improved significantly with antibiotics. NEUROMUSCULAR: No formal exam performed. The patient moved all extremities on command. Speech was clear. Answered questions appropriately. LABORATORY: Sodium 139, potassium 3.1, chloride 89, CO2 is 39, BUN 54, creatinine 1.8, glucose 125. ASSESSMENT/PLAN: HEART FAILURE WITH PRESERVED EJECTION FRACTION: We will, as in the past, put him on a Bumex drip for at least 24-48 hours assuming his renal function remains stable. We will also give him a dose of Zaroxolyn today before the initiation of his Bumex drip and one dose tomorrow, and then on Friday he will need to be re-evaluated. If his edema is significantly improved and he is back to his dry weight, I would recommend starting him back on his home diuretic regimen prescribed during his last office visit, which includes Metolazone 2.5 mg Friday and Friday only along with his Bumex 2 mg b.i.d. If his renal function deteriorates and there is no significant improvement of his edema, given the lack of cardiology rounding at [place], would recommend transfer to [facility] for further management. Once he is discharged, would recommend continued close monitoring of his renal function and if he has not seen a client service administrator, he should see a client service administrator given his diabetes history and renal insufficiency. We will also have his pacemaker checked to see if he has significant A-fib burden. If he does, he may need another cardioversion to help maintain his fluid balance. Certainly, atrial fibrillation can exacerbate diastolic heart failure. JOB NUMBER: [id number]
--- NOTE | 2017-10-01 18:18 | History & Physical ---
History of Present Illness - Date of Service Date of Service for History & Physical: 10/01/17 - History of Present Illness Admitting Diagnosis: Ac. exac. COPD. CHF. pedal edema Review of Systems Reviewed: No additional complaints except as noted below Constitutional: Reports: As per HPI. Denies: Chills, Fever, Malaise, Night sweats, Weakness, Weight change Eyes: Reports: As per HPI. Denies: Eye discharge, Eye pain, Photophobia, Vision change ENT: Reports: As per HPI. Denies: Congestion, Dental pain, Ear pain, Epistaxis , Hearing loss, Throat pain Respiratory: Reports: As per HPI. Denies: Cough, Dyspnea, Hemoptysis, Stridor, Wheezes Cardiovascular: Reports: As per HPI. Denies: Arrhythmia, Chest pain, Dyspnea on exertion, Edema, Murmurs, Orthopnea, Palpitations, Paroxysmal nocturnal dyspnea, Rheumatic Fever, Syncope Endocrine: Reports: As per HPI. Denies: Fatigue, Heat or cold intolerance, Polydipsia, Polyuria Gastrointestinal: Reports: As per HPI. Denies: Abdominal pain, Constipation, Diarrhea, Hematemesis, Hematochezia, Melena, Nausea, Vomiting Genitourinary: Reports: As per HPI. Denies: Dysuria, Frequency, Hematuria, Incontinence, Retention, Testicular pain, Testicular mass, Urgency Musculoskeletal: Reports: As per HPI. Denies: Arthralgia, Back pain, Gout, Joint swelling, Myalgia, Neck pain Skin: Reports: As per HPI. Denies: Bruising, Change in color, Change in hair/ nails, Lesions, Pruritus, Rash Neurological: Reports: As per HPI. Denies: Abnormal gait, Confusion, Headache, Numbness, Paresthesias, Seizure, Tingling, Tremors, Vertigo, Weakness Psychiatric: Reports: As per HPI. Denies: Anxiety, Auditory hallucinations, Depression, Homicidal thoughts, Suicidal thoughts, Visual hallucinations Hematological/Lymphatic: Reports: As per HPI. Denies: Anemia, Blood Clots, Easy bleeding, Easy bruising, Swollen glands Past Medical History - SOCIAL HISTORY Smoking Status: Former smoker Alcohol Use: None Drug Use: None - RESPIRATORY Hx Respiratory Disorders: Yes Hx Pneumonia: Yes (1989, current 2017) - CARDIOVASCULAR Hx Cardio Disorders: Yes Hx Abnormal EKG: Yes Hx CHF: Yes Hx Deep Vein Thrombosis: Yes (20 years ago after being kicked by a cow, current rt ankle 01/2017) Hx Edema: Yes (bilat legs recent hospitalization) Hx Hypertension: Yes Hx Irregular Heartbeat: Yes (hx a fib had cardioversion 1990 & 01/2017) Hx Pacemaker/Defib: Yes (2014) Comment:: hospitalizations states cardiac arrest during past hospitalization - NEURO Hx Neuro Disorders: No Hx Seizures: No (denies) - GI Hx GI Disorders: Yes Hx Reflux: (denies reflux) Hx Wt Loss/Wt Gain: No - Hx Genitourinary Disorders: No Hx Prostate Problems: No (pt states no but on flomax) - ENDOCRINE Hx Endocrine Disorders: Yes Hx Diabetes: Yes - MUSCULOSKELETAL Hx Musculoskeletal Disorders: Yes Hx Arthritis: Yes Hx Back Injury: Yes Hx Musculoskeletal Disease: Yes Comment:: chronic pain; hx septic hip in past - PSYCH Hx Psych Problems: No - HEMATOLOGY/ONCOLOGY Hx Hematology/Oncology Disorders: Yes Hx Anemia: Yes Hx Bruising: Yes Hx Cancer: Yes (skin) Hx Clotting Problems: Yes Hx Blood Transfusions: Yes (with hip surgery, and hematoma) Hx Blood Transfusion Reaction: No Family Medical History Any Significant Family History?: Yes Hx Cancer: Father, Mother Hx Dementia: Mother *Dementia Comment: mother alzheimers H&P Meds/Allergies - Allergies Allergies: Allergies Allergy/AdvReac Type Severity Reaction Status Date / Time onion Allergy Intermediate NAUSEA Verified 01/30/16 14:13 - Home Medications Previous Rx's Medication Instructions Recorded Bifidobacterium Infantis [Align] 4 mg PO DAILY capsule 09/22/17 Bumetanide [Bumex] 2 mg PO BIDDIUR tablet 09/22/17 Levothyroxine Sodium [Synthroid] 125 mcg PO DAILYTHY tablet 09/22/17 Loperamide HCl [Immodium] 2 mg PO Q4H PRN capsule 09/22/17 Metoprolol Tartrate [Lopressor] 12.5 mg PO BID tab 09/22/17 Oxycodone HCl/Acetaminophen 1 each PO Q4H PRN tablet 09/22/17 [Percocet 10mg/325mg] Oxycodone HCl/Acetaminophen 1 udtab PO Q6H PRN tablet 09/22/17 [Percocet 5mg/325mg] Potassium Chloride [Klor-Con] 40 meq PO BID tablet.sa 09/22/17 - Active Medications Active Medications: Current Medications Acetaminophen (Tylenol 500mg Tab) 1,000 mg PO Q6H PRN PRN Reason: Fever GT 101/Headache Albuterol Sulfate () 2.5 mg INH RESP.Q6H PRN PRN Reason: DIFFICULTY IN BREATHING Amiodarone HCl (Pacerone) 200 mg PO DAILY [facility] Ascorbic Acid (Vitamin C) 1,000 mg PO BID [facility] Atorvastatin Calcium (Lipitor) 20 mg PO QHS [facility] Clotrimazole (Lotrisone) 0.5 gm TOP BID PRN PRN Reason: RASH Ferrous Sulfate (Iron) 325 mg PO DAILY [facility] Heparin Sodium (Porcine) () 500 unit IVP DAILY [facility] Bumetanide 5 mg/ Sodium (Chloride) 270 mls @ 10.8 mls/hr IVPB Q24H [facility] Stop: 10/03/17 11:44 Last Admin: 10/01/17 11:45 Dose: 10.8 mls/hr Insulin Detemir (Levemir Flextouch) 6 unit SQ QHS [facility] Levothyroxine Sodium (Synthroid) 125 mcg PO DAILYTHY [facility] Loperamide HCl (Immodium) 2 mg PO Q4H PRN PRN Reason: Diarrhea Magnesium Oxide (Mag Ox) 400 mg PO DAILY [facility] Metolazone (Zaroxolyn) 2.5 mg PO SuTh [facility] Metolazone (Zaroxolyn) 5 mg PO DAILY [facility] Stop: 10/02/17 10:01 Metoprolol Tartrate (Lopressor) 12.5 mg PO BID [facility] Multivitamins/Minerals (Centrum) 1 tab PO DAILY [facility] Ondansetron HCl (Zofran Odt) 4 mg SL Q8H PRN PRN Reason: NAUSEA/VOMITING Oxycodone/Acetaminophen (Percocet 10-325 Mg Tablet) 1 each PO Q4H PRN PRN Reason: Pain - General Last Admin: 10/01/17 16:25 Dose: 1 each Polyethylene Glycol (Miralax) 17 gm PO QHS PRN PRN Reason: Constipation Potassium Chloride (Klor-Con) 40 meq PO BID [facility] Ranitidine HCl (Zantac) 150 mg PO QHS [facility] Senna/Docusate Sodium (Senna Plus) 2 each PO QHS [facility] Sodium Chloride () 10 ml IVP DAILY [facility] Tamsulosin HCl (Flomax) 0.4 mg PO DAILY [facility] Vitamin D (Vitamin D3) 5,000 unit PO DAILY [facility] Warfarin Sodium (Coumadin) 4 mg PO [id number] [facility] Last Admin: 10/01/17 16:26 Dose: 4 mg Physical Exam - General General Appearance: Alert, Oriented x3, Cooperative, No acute distress Limitations: No limitations - Head Head exam: Normal inspection Head exam detail: negative: Abrasion, Contusion - Eye Eye exam: Normal appearance, PERRL Pupils: Normal accommodation - ENT ENT exam: Normal exam, Mucous membranes moist, Normal external ear exam, Normal orophraynx, TM's normal bilaterally Ear exam: Normal external inspection. negative: External canal tenderness Nasal Exam: Normal inspection. negative: Discharge, Sinus tenderness Mouth exam: Normal external inspection, Tongue normal Teeth exam: Normal inspection. negative: Dental caries Throat exam: Normal inspection. negative: Tonsillar erythema, Tonsillar exudate - Neck Neck exam: Normal inspection, Full ROM. negative: Tenderness - Respiratory Respiratory exam: Rales. negative: Respiratory distress - Cardiovascular Cardiovascular Exam: Regular rate, Normal rhythm, Normal heart sounds - GI/Abdominal GI/Abdominal exam: Soft, Normal bowel sounds. negative: Tenderness - Rectal Rectal exam: Deferred - exam: Deferred - Extremities Extremities exam: Normal inspection, Full ROM, Normal capillary refill, Pedal edema. negative: Tenderness - Back Back exam: Reports: Normal inspection, Full ROM. Denies: Muscle spasm, Rash noted, Tenderness - Neurological Neurological exam: Alert, Normal gait, Oriented X3, Reflexes normal - Psychiatric Psychiatric exam: Normal affect, Normal mood - Skin Skin exam: Dry, Intact, Normal color, Warm Results - Labs Result Diagrams: 10/02/17 06:00 VTE H&P Assessment - Risk for VTE Risk for VTE: Yes Risk Level: Moderate Risk Assessment Date: 10/01/17 Risk Assessment Time: 18:24 VTE Orders Placed or Will Be Placed: Yes Plan - Inpatient Certification Inpatient Certification: Admit to inpatient care: Based on my medical assessment, after consideration of patient's risk factors (age, co-morbidities and patient presenting symptoms and acuity), I expect that this patient will remain in the hospital greater than or equal to two midnights and that the services needed warrant inpatient care because: Patient Risk Factors: [CHR post surg] Estimated length of stay: [2 days] The patient may reasonably be expected to be discharged or transferred to a hospital within 96 hours after admission to [facility]. Services needed: [IV bumex] Post hospital care (if known): [] I certify that my determination is in accordance with my understanding of Medicare requirements for reasonable and necessary inpatient services. 10/01/17 18:16 - Detailed Diagnosis and Plan (1) CHF (congestive heart failure) Current Visit: Yes Status: Acute Base Code: I50.9 - HEART FAILURE, UNSPECIFIED (2) COPD (chronic obstructive pulmonary disease) Current Visit: Yes Status: Acute Base Code: J44.9 - CHRONIC OBSTRUCTIVE PULMONARY DISEASE, UNSPECIFIED (3) Acute worsening of stage 3 chronic kidney disease Current Visit: No Status: Acute Base Code: N18.3 - CHRONIC KIDNEY DISEASE, STAGE 3 (MODERATE) Comment: - mild elevation in Cr 1.6 --> 1.8, GFR 39 - pt on diuretcis and was on Vancomycin x 8 days. - cont to trend and avoind nephrotoxins. - currently on 2 liters fluid restriction. (4) Bilateral lower extremity edema Current Visit: No Status: Acute Base Code: R60.0 - LOCALIZED EDEMA Comment : - pt has history of chronic lower ext edema. Echo 2014 EF 65%, - on Zyroxyln 2.5mg and Bumex 2mg BID. BP marginal so diuretics to be dosed with holding parameters. - cont use of home compression device and SCDs daily. Ambulation encouraged. - fluid restricted to 2 liters QD (5) CRF (chronic renal failure) Current Visit: No Status: Acute Qualifiers: Chronic kidney disease stage: unspecified stage Qualified Code(s): N18.9 - Chronic kidney disease, unspecified Base Code: N18.9 - CHRONIC KIDNEY DISEASE, UNSPECIFIED Comment: Stable at time of [place] from [facility] [place] - repeat CMP in 48 hours
[2017-10-01] MEDS: POTASSIUM CHLORIDE 20 MEQ TABLET PO SCH (22:24)
[2017-10-01] MEDS: ATORVASTATIN 20 MG TABLET PO SCH (22:26)
[2017-10-01] MEDS: RANITIDINE HCL 150 MG TABLET PO SCH (22:26)
[2017-10-01] MEDS: ASCORBIC ACID 500 MG TAB PO SCH (22:26)
[2017-10-01] MEDS: SENNOSIDES/DOCUSATE SODIUM UD CAPSULE PO SCH (22:31)
[2017-10-01] MEDS: METOPROLOL TART 25 MG TABLET PO SCH (22:31)
[2017-10-01] MEDS: LEVEMIR FLEXTOUCH 100 UNIT/ML INSULIN PEN SQ SCH (22:32)
[2017-10-02] MEDS: LEVOTHYROXINE SODIUM 125 MCG TABLET PO SCH (06:33)
[2017-10-02 07:49] LABS: INR 2.16; PROTHROMBIN TIME (PATIENT) 23.5 SECONDS (9.5-12.1)
[2017-10-02 08:01] LABS: CREATININE 1.9 mg/dL (0.7-1.2)
[2017-10-02] MEDS: BIFIDOBACTERIUM INFANTIS 4 MG CAPSULE PO SCH (09:26)
[2017-10-02] MEDS: MAGNESIUM OXIDE 400 MG TABLET PO SCH (09:26)
[2017-10-02] MEDS: TAMSULOSIN HCL 0.4 MG CAP.ER.24H PO SCH (09:31)
[2017-10-02] MEDS: ASCORBIC ACID 500 MG TAB PO SCH ×2 (09:31→21:52)
[2017-10-02] MEDS: POTASSIUM CHLORIDE 20 MEQ TABLET PO SCH ×2 (09:31→21:52)
[2017-10-02] MEDS ORDERED: METOLAZONE 2.5 MG TABLET PO SCH (10:00)
[2017-10-02] MEDS: BREO (FLUTICASONE/VILANTEROL) 200MCG/25MCG INHALER INH SCH (10:30)
[2017-10-02] MEDS: METOPROLOL TART 25 MG TABLET PO SCH ×2 (10:40→21:52)
[2017-10-02] MEDS: CHOLECALCIFEROL 1,000 UNIT TABLET PO SCH (10:40)
[2017-10-02] MEDS: FERROUS SULFATE 325 MG TAB PO SCH (10:41)
[2017-10-02] MEDS: AMIODARONE HCL 200 MG TABLET PO SCH (10:41)
[2017-10-02] MEDS: MULTIVITAMINS/MINERALS TABLET PO SCH (10:41)
[2017-10-02] MEDS: BUMETANIDE IVPB SCH (11:43)
[2017-10-02] MEDS: SODIUM CHLORIDE 0.9% IVPB SCH (11:43)
--- NOTE | 2017-10-02 12:27 | Physical Therapy Tx Note ---
Physical Therapy Tx Note - Treatment Note Physical Therapy Tx Note: Detail (Patient was not seen for morning treatment due to patient just connected to LE compression garment.) Physical Therapy Problem List: Detail (1) Cervical pain with ambulation 2) Decreased LE strength 3) Decreased ability to complete sustained physical activity. 4) Non ambulatory on stairs) Physical Therapy Goals: 1) Re-evaluate bed mobility. 2) Increased LE strength 1 /3 muscle grade to increase stability of gait. 3) The patient will be independent with ambulation with assistive device community distances ( 200 feet plus). 4) Independent ambulation on stairs with use of railings. 5) Independent with bed mobility and all transfers Physical Therapy Plan: PT 1-2 times a day for transfer training, bed mobility, gait training, LE strengthening exercises.
[2017-10-02] MEDS ORDERED: POTASSIUM CHLORIDE 20 MEQ TABLET PO ONE (12:45)
[2017-10-02] MEDS: HEPARIN SODIUM FLUSH 100 UNITS/ML SYR 5ML IVP SCH (15:05)
[2017-10-02] MEDS: 0.9 % SODIUM CHLORIDE 10ML SYR IVP SCH (15:05)
[2017-10-02] MEDS: WARFARIN 1 MG TABLET PO SCH (15:08)
[2017-10-02] MEDS: OXYCODONE/APAP 10MG-325MG TABLET PO PRN (15:08)
[2017-10-02] MEDS: VANCOMYCIN HCL 1,000 MG in 0.9 % SODIUM CHLORIDE 250ML 250 ML IVPB SCH (16:59)
--- NOTE | 2017-10-02 18:15 | Physical Therapy Tx Note ---
Physical Therapy Tx Note - Treatment Note Tolerated: Good Total Time Spent With Patient: 35 Physical Therapy Tx Note: Detail (Pt up in recliner upon arrival, awake/alert, cooperative for therapy. Independently positioned recliner into upright position. Sit/stand transfer from recliner to front-wheeled walker independently. Ambulated from bedside chair to surgical waiting area and back to bedside chair (about 300 feet) w/assist for IV pole. Performed 10 reps each B of marching, LAQ, hip abduction w/blue theraband, hip adduction w/blue theraband, hamstring curls w/blue theraband, and heel raises. Positioned bedside table in front of patient and call light in reach. IV began beeping at end of treatment, nrsg notified. Pt tolerated activity well.) Physical Therapy Problem List: Detail (1) Cervical pain with ambulation 2) Decreased LE strength 3) Decreased ability to complete sustained physical activity. 4) Non ambulatory on stairs) Physical Therapy Goals: 1) Re-evaluate bed mobility. 2) Increased LE strength 1 /3 muscle grade to increase stability of gait. 3) The patient will be independent with ambulation with assistive device community distances ( 200 feet plus). 4) Independent ambulation on stairs with use of railings. 5) Independent with bed mobility and all transfers Prognosis: Good Physical Therapy Plan: PT 1-2 times a day for transfer training, bed mobility, gait training, LE strengthening exercises.
[2017-10-02] MEDS: SENNOSIDES/DOCUSATE SODIUM UD CAPSULE PO SCH (21:51)
[2017-10-02] MEDS: LEVEMIR FLEXTOUCH 100 UNIT/ML INSULIN PEN SQ SCH (21:52)
[2017-10-02] MEDS: ATORVASTATIN 20 MG TABLET PO SCH (21:52)
[2017-10-02] MEDS: RANITIDINE HCL 150 MG TABLET PO SCH (21:52)
[2017-10-03 06:34] LABS: BASO % 0.5 % (0-6); EOS % 9.2 % (0-6); GRAN % 50.6 % (47-80); HEMATOCRIT 32.3 % (42.0-52.0); LYMPH % 24.9 % (16-45); MEAN PLATELET VOLUME 10.3 fl (7.4-10.4); MONO % 14.8 % (0-9); PLATELET COUNT 250 K/uL (130-400); RED BLOOD COUNT 3.59 M/uL (4.40-5.70); RED CELL DISTRIBUTION WIDTH 15.6 % (11.5-14.5); WHITE BLOOD COUNT W/O DIFF 4.3 K/uL (4.2-12.2)
[2017-10-03 06:36] LABS: MEAN CORPUSCULAR HEMOGLOBIN 27.8 pg (27-33)
[2017-10-03] MEDS: LEVOTHYROXINE SODIUM 125 MCG TABLET PO SCH (07:01)
[2017-10-03] MEDS: OXYCODONE/APAP 10MG-325MG TABLET PO PRN ×3 (07:05→22:07)
[2017-10-03] MEDS: VANCOMYCIN HCL 1,000 MG in 0.9 % SODIUM CHLORIDE 250ML 250 ML IVPB SCH (08:07)
[2017-10-03] MEDS: METOPROLOL TART 25 MG TABLET PO SCH ×2 (09:59→22:05)
[2017-10-03] MEDS: MULTIVITAMINS/MINERALS TABLET PO SCH (10:00)
[2017-10-03] MEDS: FERROUS SULFATE 325 MG TAB PO SCH (10:00)
[2017-10-03] MEDS: ASCORBIC ACID 500 MG TAB PO SCH ×2 (10:00→22:06)
[2017-10-03] MEDS: POTASSIUM CHLORIDE 20 MEQ TABLET PO SCH ×2 (10:01→22:06)
[2017-10-03] MEDS: MAGNESIUM OXIDE 400 MG TABLET PO SCH (10:01)
[2017-10-03] MEDS: CHOLECALCIFEROL 1,000 UNIT TABLET PO SCH (10:01)
[2017-10-03] MEDS: AMIODARONE HCL 200 MG TABLET PO SCH (10:01)
[2017-10-03] MEDS: TAMSULOSIN HCL 0.4 MG CAP.ER.24H PO SCH (10:02)
[2017-10-03] MEDS: 0.9 % SODIUM CHLORIDE 10ML SYR IVP SCH (10:02)
[2017-10-03] MEDS: BIFIDOBACTERIUM INFANTIS 4 MG CAPSULE PO SCH (10:02)
[2017-10-03] MEDS: HEPARIN SODIUM FLUSH 100 UNITS/ML SYR 5ML IVP SCH (10:03)
[2017-10-03] MEDS: BREO (FLUTICASONE/VILANTEROL) 200MCG/25MCG INHALER INH SCH (10:26)
--- NOTE | 2017-10-03 10:38 | Rehab Evaluation ---
Patient Information - Patient Information Diagnosis: Heart Failure Ordered Treatment: OT Evaluate and Treat Status: Initial Evaluation Surgery: Yes (cervical laminectomy C2/C3) Date of Surgery: 09/11/17 Past Medical/Surgical Hx: PAST MEDICAL/SURGICAL HISTORY Past Surgical History pump trial with dilaudid implanted cath ( permanent device in place) Back surgery X5, neck surgery, Hip & shoulder sx ,Bunionectomy,bilat right hip replacement, AICD , abscess rt thigh, septic hip, hematoma rt thigh , revision x2, evac of hematoma post rt hip; lumbar rhizotomy 05/31/15. permanent pain pump 2016 C2-3 lminectomy 09/19 PMH - Respiratory Hx Respiratory Disorders Yes Hx Pneumonia Yes: 1989, current 2016 Hx of SOB Yes: occass PMH - Cardiovascular Hx Cardiovascular Disorders Yes Hx Abnormal EKG Yes Hx Congestive Heart Failure Yes Hx Deep Vein Thrombosis Yes: 20 years ago after being kicked by a cow, current rt ankle 01/2017 Hx Edema Yes: bilat legs recent hospitalization Hx Hypertension Yes Hx Irregular Heartbeat Yes: hx a fib had cardioversion 1990 & 01/2017 Hx Pacemaker/Defibrillator Yes: 2014 Comment: hospitalizations states cardiac arrest during past hospitalization 07/18 PMH - Neuro Hx Neurological Disorders No Hx Neuropathy Yes: rt hand Hx Seizures No: denies PMH - GI Hx Gastrointestinal Disorders Yes Hx Gastroesophageal Reflux denies reflux Hx Weight Loss/Weight Gain No PMH - Hx Genitourinary Disorders No Hx Bladder Problem Yes: retention Hx Prostate Problems No: pt states no but on flomax Hx Urinary Tract Infection Yes PMH - Endocrine Hx Endocrine Disorders Yes Hx Diabetes Yes Hx Thyroid Disease Yes Hx of NIDDM Yes Hx of IDDM Yes Comment: checks blood sugars bid (100-140)/ulcers on feet due to poor circulation PMH - Musculoskeletal Hx Musculoskeletal Disorders Yes Hx Arthritis Yes Hx Back Injury Yes Hx Musculoskeletal Disease Yes Comment: chronic pain; hx septic hip in past PMH - Psych Hx Psychiatric Problems No PMH - Hematology/Oncology Hx Hematology/Oncology Yes Disorders Hx Anemia Yes Hx Bruising Yes Hx Cancer Yes: skin Hx Clotting Problems Yes Hx Blood Transfusion Reaction No Comment: pt to bridge with Lovenox 4 days preop Premorbid Status: Detail (Pt lives alone in a 1 story house with 3 steps and one handrail at the entrance. He has 2 bathrooms, one has a shower stall as well as an elevated toilet seat with grab bar, the second bathroom has a tub/ shower combination and standard height toilet with grab bar. He was Ind with all ADLs/IADLs prior to surgery. Pt was independent with all mobility prior to surgery and ambulatory with 2 canes.) Social History: Detail (Supportive daughter.) Precautions: [place], Fall, Other (contact isolation, no lifting over 10#) - Time With Patient Total Time Spent With Patient (Min): 60 Treatment Procedures: Detail (OT eval low complexity) Subjective Information - Subjective Information Per Patient Objective Data - Pain Pain Present: Yes (neck pain) - Mental Status Patient Orientation: Oriented x3 - Visual Perception Appears within normal limits for therapeutic activities - ROM Not within normal limits (Ozzy shoulder flexion limited to approx. 110 degrees, ozzy elbow, wrist and hand AROM WNL.) - Strength/Tone Not within normal limits (UE strength not formally tested due to surgical precautions. Per observation ozzy UE strength grossly 4-/5 throughout, within AROM limitations.) - Coordination Appears within normal limits for therapeutic activities - Transfers Independent (Ind with sit to stand from chair, toilet, commode.) - Balance Balance Sitting: Good Balance Standing: Good - Sensation Intact - Gait Detail (Pt ambulating in room with 2 wheeled walker Indly.) - ADL's/IADL's Detail (Pt able to demonstrate Ind with doffing t-shirt, PJ bottoms, boxer shorts and slippers with field adjuster Indly. Completed showering in standing Indly, after set up to wrap ozzy feet and IV line. Dried self Indly in sitting and standing. Donned boxer shorts, sweatpants and t-shirt Indly using field adjuster, required max assist for ozzy slippers. Pt Ind with grooming/hygiene at sink. Pt was fatigued and short of breath at times.) Therapy Assessment - Therapy Assessment Detail (Ind with showering after set up although easily fatigued, Ind with dressing except slippers, Ind with grooming/hygiene, decreased UE strength, ROM and endurance.) Problem List - Problem List Physical Therapy Problem List: Detail (1) Cervical pain with ambulation 2) Decreased LE strength 3) Decreased ability to complete sustained physical activity. 4) Non ambulatory on stairs) Occupational Therapy Problem List: Detail (1. Decreased endurance with showering. 2. Decreased Ind with LE dressing. 3. Decreased UE strength, ROM and overall endurance needed for safe return home.) Goals - Goals Physical Therapy Goals: 1) Re-evaluate bed mobility. 2) Increased LE strength 1 /3 muscle grade to increase stability of gait. 3) The patient will be independent with ambulation with assistive device community distances ( 200 feet plus). 4) Independent ambulation on stairs with use of railings. 5) Independent with bed mobility and all transfers Occupational Therapy Goals: 1. Pt will be safe and Ind with showering. 2. Pt will be Ind with LE dressing using adaptive equipment as needed . 3. Improve UE ROM, strength and endurance to allow safe and Ind ADLs/IADLs. Prognosis - Prognosis Good Plan - Plan Physical Therapy Plan: PT 1-2 times a day for transfer training, bed mobility, gait training, LE strengthening exercises. Occupational Therapy Plan: OT 2-4 times per week to address ADLs, UE function and overall endurance.
--- NOTE | 2017-10-03 14:40 | Physical Therapy Tx Note ---
Physical Therapy Tx Note - Treatment Note Tolerated: Good Total Time Spent With Patient: 30 Physical Therapy Tx Note: Detail (The patient was up in chair when PT arrived with Dr. Quesada. Dr. Quesada stated patient could participate with PT treatment. The patient ambulated with wheeled walker a distance of 200 feet x 1 with supervision/CG for safety. The patient completed LE strengthening exercies including hip adductor squeezes, hip marches, LAQ, with blue band hamstring curls and hip abduction all x 10 reps. The patient complained of overall fatigue.) Physical Therapy Problem List: Detail (1) Cervical pain with ambulation 2) Decreased LE strength 3) Decreased ability to complete sustained physical activity. 4) Non ambulatory on stairs) Physical Therapy Goals: 1) Re-evaluate bed mobility. 2) Increased LE strength 1 /3 muscle grade to increase stability of gait. 3) The patient will be independent with ambulation with assistive device community distances ( 200 feet plus). 4) Independent ambulation on stairs with use of railings. 5) Independent with bed mobility and all transfers Physical Therapy Plan: PT 1-2 times a day for transfer training, bed mobility, gait training, LE strengthening exercises.
[2017-10-03] MEDS: BUMETANIDE 1 MG TABLET PO SCH ×2 (14:48→17:51)
[2017-10-03] MEDS: CEPHALEXIN 500 MG CAPSULE PO SCH ×2 (14:48→17:51)
[2017-10-03] MEDS: WARFARIN 1 MG TABLET PO SCH (16:59)
[2017-10-03] MEDS: ATORVASTATIN 20 MG TABLET PO SCH (22:06)
[2017-10-03] MEDS: SENNOSIDES/DOCUSATE SODIUM UD CAPSULE PO SCH (22:06)
[2017-10-03] MEDS: RANITIDINE HCL 150 MG TABLET PO SCH (22:06)
[2017-10-03] MEDS: LEVEMIR FLEXTOUCH 100 UNIT/ML INSULIN PEN SQ SCH (22:07)
[2017-10-04] MEDS: CEPHALEXIN 500 MG CAPSULE PO SCH ×5 (00:39→23:38)
[2017-10-04] MEDS: VANCOMYCIN HCL 1,000 MG in 0.9 % SODIUM CHLORIDE 250ML 250 ML IVPB SCH ×2 (00:39→19:47)
[2017-10-04] MEDS: LEVOTHYROXINE SODIUM 125 MCG TABLET PO SCH (06:12)
[2017-10-04] MEDS: BUMETANIDE 1 MG TABLET PO SCH ×2 (06:13→17:50)
[2017-10-04 06:55] LABS: INR 2.97; PROTHROMBIN TIME (PATIENT) 32.4 SECONDS (9.5-12.1)
[2017-10-04 07:01] LABS: CREATININE 1.9 mg/dL (0.7-1.2)
[2017-10-04] MEDS: 0.9 % SODIUM CHLORIDE 10ML SYR IVP SCH (09:47)
[2017-10-04] MEDS: MULTIVITAMINS/MINERALS TABLET PO SCH (09:48)
[2017-10-04] MEDS: TAMSULOSIN HCL 0.4 MG CAP.ER.24H PO SCH (09:49)
[2017-10-04] MEDS: BREO (FLUTICASONE/VILANTEROL) 200MCG/25MCG INHALER INH SCH (09:50)
[2017-10-04] MEDS: HEPARIN SODIUM FLUSH 100 UNITS/ML SYR 5ML IVP SCH (09:50)
[2017-10-04] MEDS: FERROUS SULFATE 325 MG TAB PO SCH (09:50)
[2017-10-04] MEDS: POTASSIUM CHLORIDE 20 MEQ TABLET PO SCH ×2 (09:51→21:40)
[2017-10-04] MEDS: METOPROLOL TART 25 MG TABLET PO SCH ×2 (09:51→21:42)
[2017-10-04] MEDS: MAGNESIUM OXIDE 400 MG TABLET PO SCH (09:52)
[2017-10-04] MEDS: AMIODARONE HCL 200 MG TABLET PO SCH (09:53)
[2017-10-04] MEDS: ASCORBIC ACID 500 MG TAB PO SCH ×2 (09:53→21:41)
[2017-10-04] MEDS: CHOLECALCIFEROL 1,000 UNIT TABLET PO SCH (09:53)
[2017-10-04] MEDS: BIFIDOBACTERIUM INFANTIS 4 MG CAPSULE PO SCH (09:56)
[2017-10-04] MEDS ORDERED: POTASSIUM CHLORIDE 20 MEQ TABLET PO ONE (11:58)
[2017-10-04] MEDS: METOLAZONE 2.5 MG TABLET PO SCH (16:12)
[2017-10-04] MEDS: WARFARIN 1 MG TABLET PO SCH (16:12)
[2017-10-04] MEDS: SENNOSIDES/DOCUSATE SODIUM UD CAPSULE PO SCH (21:40)
[2017-10-04] MEDS: ATORVASTATIN 20 MG TABLET PO SCH (21:41)
[2017-10-04] MEDS: RANITIDINE HCL 150 MG TABLET PO SCH (21:41)
[2017-10-04] MEDS: LEVEMIR FLEXTOUCH 100 UNIT/ML INSULIN PEN SQ SCH (21:42)
[2017-10-04] MEDS: OXYCODONE/APAP 10MG-325MG TABLET PO PRN (21:52)
[2017-10-05] MEDS: BUMETANIDE 1 MG TABLET PO SCH ×2 (06:13→17:48)
[2017-10-05] MEDS: CEPHALEXIN 500 MG CAPSULE PO SCH ×4 (06:13→23:04)
[2017-10-05] MEDS: LEVOTHYROXINE SODIUM 125 MCG TABLET PO SCH (06:13)
[2017-10-05 06:41] LABS: CREATININE 1.9 mg/dL (0.7-1.2)
[2017-10-05] MEDS: BREO (FLUTICASONE/VILANTEROL) 200MCG/25MCG INHALER INH SCH (09:51)
[2017-10-05] MEDS ORDERED: METOLAZONE 2.5 MG TABLET PO SCH (10:00)
[2017-10-05] MEDS: HEPARIN SODIUM FLUSH 100 UNITS/ML SYR 5ML IVP SCH (10:19)
[2017-10-05] MEDS: 0.9 % SODIUM CHLORIDE 10ML SYR IVP SCH (10:19)
[2017-10-05] MEDS: POTASSIUM CHLORIDE 20 MEQ TABLET PO SCH ×2 (10:21→21:45)
[2017-10-05] MEDS: BIFIDOBACTERIUM INFANTIS 4 MG CAPSULE PO SCH (10:21)
[2017-10-05] MEDS: TAMSULOSIN HCL 0.4 MG CAP.ER.24H PO SCH (10:21)
[2017-10-05] MEDS: MULTIVITAMINS/MINERALS TABLET PO SCH (10:21)
[2017-10-05] MEDS: METOLAZONE 2.5 MG TABLET PO SCH (10:21)
[2017-10-05] MEDS: CHOLECALCIFEROL 1,000 UNIT TABLET PO SCH (10:21)
[2017-10-05] MEDS: METOPROLOL TART 25 MG TABLET PO SCH ×3 (10:21→21:44)
[2017-10-05] MEDS: MAGNESIUM OXIDE 400 MG TABLET PO SCH (10:22)
[2017-10-05] MEDS: ASCORBIC ACID 500 MG TAB PO SCH ×2 (10:22→21:44)
[2017-10-05] MEDS: AMIODARONE HCL 200 MG TABLET PO SCH (10:22)
[2017-10-05] MEDS: FERROUS SULFATE 325 MG TAB PO SCH (10:22)
[2017-10-05] MEDS: VANCOMYCIN HCL 1,000 MG in 0.9 % SODIUM CHLORIDE 250ML 250 ML IVPB SCH (13:30)
[2017-10-05] MEDS: OXYCODONE/APAP 10MG-325MG TABLET PO PRN (13:37)
[2017-10-05] MEDS: WARFARIN 1 MG TABLET PO SCH (16:31)
[2017-10-05] MEDS: ATORVASTATIN 20 MG TABLET PO SCH (21:44)
[2017-10-05] MEDS: RANITIDINE HCL 150 MG TABLET PO SCH (21:44)
[2017-10-05] MEDS: SENNOSIDES/DOCUSATE SODIUM UD CAPSULE PO SCH (21:44)
[2017-10-05] MEDS: LEVEMIR FLEXTOUCH 100 UNIT/ML INSULIN PEN SQ SCH (21:45)
[2017-10-06] MEDS: LEVOTHYROXINE SODIUM 125 MCG TABLET PO SCH (06:05)
[2017-10-06] MEDS: BUMETANIDE 1 MG TABLET PO SCH ×2 (06:05→19:05)
[2017-10-06] MEDS: CEPHALEXIN 500 MG CAPSULE PO SCH ×3 (06:05→19:05)
[2017-10-06 06:30] LABS: INR 3.94
[2017-10-06 06:33] LABS: PROTHROMBIN TIME (PATIENT) 43.2 SECONDS (9.5-12.1)
[2017-10-06 06:36] LABS: CREATININE 1.8 mg/dL (0.7-1.2)
[2017-10-06] MEDS: VANCOMYCIN HCL 1,000 MG in 0.9 % SODIUM CHLORIDE 250ML 250 ML IVPB SCH (08:21)
[2017-10-06] MEDS: BREO (FLUTICASONE/VILANTEROL) 200MCG/25MCG INHALER INH SCH (09:28)
--- NOTE | 2017-10-06 10:10 | Physical Therapy Tx Note ---
Physical Therapy Tx Note - Treatment Note Tolerated: Good Total Time Spent With Patient: 45 Physical Therapy Tx Note: Detail (The patient complains of bilateral groin pain . The patient ambulated with wheeled walker a distance of 250 feet x 1 with one brief rest period. The patient completed the following LE strengthening exercises: hip abduction and knee flexion with blue theraband, gluteal sets, hip marching, hip adductor squeezes, LAQ all until fatigue. UE exercises: shldr flexion R without resistance, L with blue band, bicep and tricep curls with blue band all with reps until fatigued.) Physical Therapy Problem List: Detail (1) Cervical pain with ambulation 2) Decreased LE strength 3) Decreased ability to complete sustained physical activity. 4) Non ambulatory on stairs) Physical Therapy Goals: 1) Re-evaluate bed mobility. 2) Increased LE strength 1 /3 muscle grade to increase stability of gait. 3) The patient will be independent with ambulation with assistive device community distances ( 200 feet plus). 4) Independent ambulation on stairs with use of railings. 5) Independent with bed mobility and all transfers Physical Therapy Plan: PT 1-2 times a day for transfer training, bed mobility, gait training, LE strengthening exercises.
[2017-10-06] MEDS: HEPARIN SODIUM FLUSH 100 UNITS/ML SYR 5ML IVP SCH (10:24)
[2017-10-06] MEDS: BIFIDOBACTERIUM INFANTIS 4 MG CAPSULE PO SCH (10:24)
[2017-10-06] MEDS: AMIODARONE HCL 200 MG TABLET PO SCH (10:24)
[2017-10-06] MEDS: POTASSIUM CHLORIDE 20 MEQ TABLET PO SCH ×2 (10:24→22:18)
[2017-10-06] MEDS: 0.9 % SODIUM CHLORIDE 10ML SYR IVP SCH (10:24)
[2017-10-06] MEDS: MULTIVITAMINS/MINERALS TABLET PO SCH (10:24)
[2017-10-06] MEDS: METOLAZONE 2.5 MG TABLET PO SCH (10:24)
[2017-10-06] MEDS: TAMSULOSIN HCL 0.4 MG CAP.ER.24H PO SCH (10:24)
[2017-10-06] MEDS: MAGNESIUM OXIDE 400 MG TABLET PO SCH (10:24)
[2017-10-06] MEDS: METOPROLOL TART 25 MG TABLET PO SCH ×2 (10:24→22:18)
[2017-10-06] MEDS: ASCORBIC ACID 500 MG TAB PO SCH ×2 (10:25→22:18)
[2017-10-06] MEDS: CHOLECALCIFEROL 1,000 UNIT TABLET PO SCH (10:25)
[2017-10-06] MEDS: FERROUS SULFATE 325 MG TAB PO SCH (10:27)
[2017-10-06] MEDS: OXYCODONE/APAP 10MG-325MG TABLET PO PRN (14:42)
--- NOTE | 2017-10-06 15:06 | Physical Therapy Tx Note ---
Physical Therapy Tx Note - Treatment Note Tolerated: Fair Total Time Spent With Patient: 10 Physical Therapy Tx Note: Detail (The patient was up in chair when PT arrived. The patient ambulated with wheeled walker with CG a distance of 108 feet x 1. The patient complained of increased L groin pain after ambulation and refused further activity.) Physical Therapy Problem List: Detail (1) Cervical pain with ambulation 2) Decreased LE strength 3) Decreased ability to complete sustained physical activity. 4) Non ambulatory on stairs) Physical Therapy Goals: 1) Re-evaluate bed mobility. 2) Increased LE strength 1 /3 muscle grade to increase stability of gait. 3) The patient will be independent with ambulation with assistive device community distances ( 200 feet plus). 4) Independent ambulation on stairs with use of railings. 5) Independent with bed mobility and all transfers Physical Therapy Plan: PT 1-2 times a day for transfer training, bed mobility, gait training, LE strengthening exercises.
[2017-10-06] MEDS: RANITIDINE HCL 150 MG TABLET PO SCH (22:18)
[2017-10-06] MEDS: ATORVASTATIN 20 MG TABLET PO SCH (22:18)
[2017-10-06] MEDS: LEVEMIR FLEXTOUCH 100 UNIT/ML INSULIN PEN SQ SCH (22:18)
[2017-10-06] MEDS: SENNOSIDES/DOCUSATE SODIUM UD CAPSULE PO SCH (22:18)
[2017-10-07] MEDS: CEPHALEXIN 500 MG CAPSULE PO SCH ×2 (01:13→06:12)
[2017-10-07] MEDS: VANCOMYCIN HCL 1,000 MG in 0.9 % SODIUM CHLORIDE 250ML 250 ML IVPB SCH (01:14)
[2017-10-07] MEDS: BUMETANIDE 1 MG TABLET PO SCH (06:12)
[2017-10-07] MEDS: LEVOTHYROXINE SODIUM 125 MCG TABLET PO SCH (06:12)
[2017-10-07] MEDS: BREO (FLUTICASONE/VILANTEROL) 200MCG/25MCG INHALER INH SCH (09:23)
[2017-10-07] MEDS: MULTIVITAMINS/MINERALS TABLET PO SCH (09:30)
[2017-10-07] MEDS: CHOLECALCIFEROL 1,000 UNIT TABLET PO SCH (09:30)
[2017-10-07] MEDS: TAMSULOSIN HCL 0.4 MG CAP.ER.24H PO SCH (09:31)
[2017-10-07] MEDS: AMIODARONE HCL 200 MG TABLET PO SCH (09:31)
[2017-10-07] MEDS: POTASSIUM CHLORIDE 20 MEQ TABLET PO SCH (09:31)
[2017-10-07] MEDS: BIFIDOBACTERIUM INFANTIS 4 MG CAPSULE PO SCH (09:31)
[2017-10-07] MEDS: FERROUS SULFATE 325 MG TAB PO SCH (09:31)
[2017-10-07] MEDS: MAGNESIUM OXIDE 400 MG TABLET PO SCH (09:32)
[2017-10-07] MEDS: METOPROLOL TART 25 MG TABLET PO SCH (09:32)
[2017-10-07] MEDS: ASCORBIC ACID 500 MG TAB PO SCH (09:32)
[2017-10-07] MEDS ORDERED: TMP/SMZ 160MG/800MG TAB PO SCH (10:00)
--- NOTE | 2017-10-07 11:00 | Discharge Summary ---
DATE OF ADMISSION: 10/01/2017 DATE OF DISCHARGE: 10/07/2017 DISCHARGE DIAGNOSES: 1. Congestive heart failure, stable, but guarded because of fluid retention. 2. Renal insufficiency. 3. Pedal edema, improved, but still swollen 2+ to 3+ bilaterally. 4. Cellulitis of the legs, improving. 5. Paced rhythm. 6. History of atrial fib, and according to the patient, when the pacemaker was interrogated he has been in atrial fib for 2 or 3 months. 7. Diabetes mellitus, on Levemir. 8. Hypothyroidism. 9. Deconditioning. 10. Degenerative disk disease, cervical. 11. History of atrial fib, on Coumadin therapy. 12. Heart failure with preserved ejection fraction. ATTENDING PHYSICIAN: Laith Quesada DO REASON FOR HOSPITALIZATION: This patient was in our Swing Bed Program and he recently had a cervical fusion done at [facility] approximately 2 to 3 weeks ago. While in the Swing Bed Program, he has developed cellulitis and pneumonia and he was evaluated by Cardiology, Dr. Quintero, who felt he should have an IV Bumex drip for 48 hours to see if it would improve his edema in his legs and if his kidneys have deteriorated, he recommended transferring up to [facility]. He may also need cardio conversion. He was going to have the pacemaker interrogated to see how much atrial fibrillation he is in. His EKG here in the hospital showing paced rhythm, possible atrial fibrillation. Mostly paced rhythm is on the EKG. He was brought back from the Swing Bed to the regular hospital. BUN, creatinine, electrolytes daily and adjusting his diuretics. His BUN and creatinine function as of yesterday, pending BUN and creatinine today, the BUN was 57, creatinine was 1.8, which has remained fairly stable throughout this hospitalization. The potassium is 3.6. His weight today is 131 pounds, which has been approximately the same. His response to therapy has not been all that great. He has not diuresed much. He is still pretty much [id number] if he puts his large compression socks on. If he keeps small compression socks on between the knees and the ankles, he is able to breathe better. HOSPITAL COURSE: Slight improvement, but still very guarded because of his fluid status, renal status, and CHF. CONDITION AT DISCHARGE: Guarded actually at this point because of the lack of improvement and comorbid conditions. I will call Cardiology to see if we can transfer him to [facility] for further care, Nephrology consultation, and further evaluation. At this point, I feel that he would be better off with further evaluation through Cardiology and Nephrology. DISCHARGE INSTRUCTIONS: Will transfer to [facility] for Cardiology and Nephrology to evaluate. MAYURI
[2017-10-07] MEDS ORDERED: WARFARIN 1 MG TABLET PO SCH (16:00)
== END 2017-10-07 12:15 | disposition short-term general hospital (02) | DRG 292 ==
LOC: MEDSURG 11:45
PROVIDERS: ADMIT Emergency Medicine; ATTEND Emergency Medicine
DX: I50.33 Acute on chronic diastolic (congestive) heart failure (principal); L03.116 Cellulitis of left lower limb; L03.115 Cellulitis of right lower limb; I48.1 Persistent atrial fibrillation; I34.0 Nonrheumatic mitral (valve) insufficiency; I65.23 Occlusion and stenosis of bilateral carotid arteries; Z79.01 Long term (current) use of anticoagulants; L97.519 Non-pressure chronic ulcer of other part of right foot with unspecified severity; Z95.0 Presence of cardiac pacemaker; E11.9 Type 2 diabetes mellitus without complications; Z79.4 Long term (current) use of insulin; E03.9 Hypothyroidism, unspecified; M51.36 Other intervertebral disc degeneration, lumbar region; R53.1 Weakness; I10 Essential (primary) hypertension; I25.10 Atherosclerotic heart disease of native coronary artery without angina pectoris; Z87.891 Personal history of nicotine dependence
CPT/HCPCS: 36416; 80048; 80202; 82948; 83735; 85025; 85610; 86140; 93005; 93010; 94640; 97110; 97165; 97530; 99223; 99233; J7050

== ENCOUNTER 2017-10-14 13:41 | Inpatient (IN) | payer MEDICARE, OTHER ==
[2017-10-16] MEDS ORDERED: ACETAMINOPHEN 325 MG TAB PO PRN (17:38)
[2017-10-16] MEDS ORDERED: POLYETHYLENE GLY 17 GM PACKET PO PRN (17:42)
[2017-10-16] MEDS ORDERED: CLOTRIMAZOLE/BETAMET 15 GM TUBE TOP PRN (17:43)
[2017-10-16] MEDS: POTASSIUM CHLORIDE 20 MEQ TABLET PO SCH (19:50)
[2017-10-16] MEDS: BUMETANIDE 1 MG TABLET PO SCH (19:50)
[2017-10-16] MEDS: LEVEMIR FLEXTOUCH 100 UNIT/ML INSULIN PEN SQ SCH (22:03)
[2017-10-16] MEDS: SENNOSIDES/DOCUSATE SODIUM UD CAPSULE PO SCH (22:06)
[2017-10-16] MEDS: ATORVASTATIN 20 MG TABLET PO SCH (22:06)
[2017-10-16] MEDS: METOPROLOL TART 25 MG TABLET PO SCH (22:07)
[2017-10-16] MEDS: ASCORBIC ACID 500 MG TAB PO SCH (22:07)
[2017-10-16] MEDS: RANITIDINE HCL 150 MG TABLET PO SCH (22:07)
--- NOTE | 2017-10-17 07:36 | History & Physical ---
History of Present Illness - Date Date of Service for History & Physical: 10/18/17 - History of Present Illness Admitting Diagnosis: acute diastolic CHF; deconditioning History of Present Illness: Mr. Simms is a 77 y/o male patient well known to this service with multiple comorbidities resulting in a protracted hospital course, which include diastolic heart failure, non-rheumatic mitral valve disease, diabetes mellitus II, chronic atrial fibrillation, hypothyroidism amongst other things. He was recently admitted to swing bed here at [facility] s/p cervical fusion at [facility]. The patient was primarily admitted to manage his deconditioned state and progressive leg swelling. While here in August the patient was converted to inpatient after developing a pneumonia and bilateral lower extremity cellulitis. He was treated with IV antibiotics and symptoms resolved over several days. The patient has chronic pitting edema of bilateral lower extremities and was on furosemide for daily diuresis. The patient's leg swelling did not improve and he was started on Bumex as per cardiology recommendation. The patient's leg swelling did not improve and there was concern for worsening of his heart failure, chronic edema and chronic kidney failure so the patient was transferred to [facility] for further treatment. While there the patient's diuersis was continued with Lasix and Bumex and there was improvement in symptoms. However the patient's kidney function showed some decline and he remained at [facility] for and additional 3 days until resolution. The patient on examination this morning is sitting up in the chair and appears comfortable. He has complain of back pain which is chronic and also chronic constipation. He is somewhat embarrassed by his bowel incontinence this morning and not being able to make it to the restroom in time. General - Cognitive Patterns Orientation: Oriented x3 - Communication Preferred Language?: Azeri Diving Supervisor Required: No Level of Education: High School Preferred Method of Learning: Seeing, Doing Comprehension Ability: No Impairment Able to Read: Yes Able to Write: Yes Select best description of speech pattern: Clear Speech Ability to express ideas and wants: Understood Understanding verbal content: Usually Understands - Psychosocial Well-Being Usual Living Arrangement: Alone - Physical Functioning Activity Level: Up as tolerated, Up with assist x1 Turning: With partial assist ROM Ability: Moves all extremities Assistive Devices: Straight Cane, 2 Wheel Walker Ambulation Ability: Needs Assist Bed Mobility: Needs Assist Transfer Ability: Needs Assist Bathing Ability: Needs Assist Personal Hygiene: Needs Assist Dressing Ability: Needs Assist Eating (Feeding) Ability: Independent Toileting Ability: Needs Assist Administer Own Medication: Independent - Continence Bowel Pattern: Normal for Patient, Constipated Bladder Pattern: Normal - Dental Status Unable to examine: No Broken or loosely fitting full or partial dentures: No No natural teeth or tooth fragment(s) (edentulous): No Abnormal mouth tissue (ulcers, masses, oral lesions, etc.): No Obvious or likely cavity or broken natural teeth: No Inflamed or bleeding gums or loose natural teeth: No Mouth/facial pain, discomfort or difficulty chewing: No - Nutrition Screening Poor oral intake > 1 week: Yes Unplanned weight loss in specified time frame: No Nutrition Support via tube feedings or parenteral nutrition: No Pressure Ulcer: No Significantly underweight define as BMI <18.5 kg/m2: No Albumin <2.5mg/dL: No Persistent nausea/vomiting/diarrhea >3 days: No Difficulty chewing/swallowing/mouth sores: No Admitting Diagnosis: Yes Nutrition Risk Score: High Risk Past Medical History - SOCIAL HISTORY Smoking Status: Former smoker Alcohol Use: None - SURGICAL HISTORY Past Surgical History: pump trial with dilaudid implanted cath (permanent device in place). Back surgery X5, neck surgery, Hip & shoulder sx,Bunionectomy ,bilat right hip replacement, AICD, abscess rt thigh, septic hip, hematoma rt thigh, revision x2, evac of hematoma post rt hip;. lumbar rhizotomy 05/31/15. permanent pain pump 2015. C2-3 lminectomy 09/19 - RESPIRATORY Hx Respiratory Disorders: Yes Hx Asthma: Yes Hx Bronchitis: No Hx COPD: Yes Hx Dyspnea: Yes Hx Pneumonia: Yes (1989, current 2016) Hx Pulmonary Embolism: No Hx Sleep Apnea: No Hx Tuberculosis: No Hx of CPAP: No - CARDIOVASCULAR Hx Cardio Disorders: Yes Hx Abnormal EKG: Yes Hx Cardiac Cath: No Hx Chest Pain: No Hx CHF: Yes Hx Deep Vein Thrombosis: Yes (20 years ago after being kicked by a cow, current rt ankle 01/2017) Hx Edema: Yes (bilat legs recent hospitalization) Hx Heart Attack: No Hx Hypertension: Yes Hx Irregular Heartbeat: Yes (hx a fib had cardioversion 1990 & 01/2017) Hx Palpitations: No Hx Pacemaker/Defib: Yes (2014) Hx Vascular Disease: Yes Comment:: hospitalizations states cardiac arrest during past hospitalization - NEURO Hx Neuro Disorders: No Hx Brain Tumor: No Hx CVA: No Hx Dementia: No Hx Dizziness: No Hx Headaches: No Hx Neuropathy: Yes Hx Parkinson's Disease: No Hx Seizures: No (denies) Hx Speech Problem: No Hx TIA: No - GI Hx GI Disorders: Yes Hx Abdominal Pain: No Hx Celiac Disease: No Hx Crohn's Disease: No Hx Diverticulitis: No Hx GI Bleed: No Hx Reflux: No (denies reflux) Hx Hepatitis/Jaundice: No Hx Hiatal Hernia: No Hx Irritable Bowel: No Hx Liver Disease: No Hx Nausea/Vomiting: No Hx Obstructive Bowel: No Hx Pancreatitis: No Hx Rectal Bleeding: No Hx Ulcer: No Hx Wt Loss/Wt Gain: No Hx of Polyps: No - Hx Genitourinary Disorders: No Hx Bladder Problem: No Hx Kidney Stones: No Hx Prostate Problems: No (pt states no but on flomax) Hx Renal Disease: Yes Hx UTI: No - ENDOCRINE Hx Endocrine Disorders: Yes Hx Diabetes: Yes Hx Thyroid Disease: No - MUSCULOSKELETAL Hx Musculoskeletal Disorders: Yes Hx Arthritis: Yes Hx Back Injury: Yes Hx Fibromyalgia: No Hx Gout: No Hx Musculoskeletal Disease: Yes Hx Osteoporosis: No Comment:: chronic pain; hx septic hip in past - PSYCH Hx Psych Problems: No Hx Anxiety: No Hx Behavior Problems: No Hx Depression: No Hx Emotional Abuse: No Hx Sexual Abuse: No Hx Suicide Attempt: No Major Depressive Episode: No Feelings of Hopelessness: No - HEMATOLOGY/ONCOLOGY Hx Hematology/Oncology Disorders: Yes Hx Anemia: Yes Hx Blood Disorders: No Hx Bruising: Yes Hx Cancer: Yes (skin) Hx Clotting Problems: Yes Hx Sickle Cell Disease: No Hx Unexplained Bleeding: No Hx Blood Transfusions: Yes (with hip surgery, and hematoma) Hx Blood Transfusion Reaction: No Family Medical History Any Significant Family History?: Yes Hx Cancer: Father, Mother Hx Dementia: Mother *Dementia Comment: mother alzheimers H&P Meds/Allergies - Allergies Allergies: Allergies Allergy/AdvReac Type Severity Reaction Status Date / Time onion Allergy Intermediate NAUSEA Verified 01/30/16 14:13 - Home Medications Previous Rx's Medication Instructions Recorded Bifidobacterium Infantis [Align] 4 mg PO DAILY capsule 09/22/17 Bumetanide [Bumex] 2 mg PO BIDDIUR tablet 09/22/17 Levothyroxine Sodium [Synthroid] 125 mcg PO DAILYTHY tablet 09/22/17 Loperamide HCl [Immodium] 2 mg PO Q4H PRN capsule 09/22/17 Metoprolol Tartrate [Lopressor] 12.5 mg PO BID tab 09/22/17 Oxycodone HCl/Acetaminophen 1 each PO Q4H PRN tablet 09/22/17 [Percocet 10mg/325mg] Oxycodone HCl/Acetaminophen 1 udtab PO Q6H PRN tablet 09/22/17 [Percocet 5mg/325mg] Potassium Chloride [Klor-Con] 40 meq PO BID tablet. 09/22/17 - Active Medications Active Medications: Current Medications Acetaminophen (Tylenol 325mg) 650 mg PO Q4H PRN PRN Reason: MILD PAIN Ascorbic Acid (Vitamin C) 1,000 mg PO BID [facility] Last Admin: 10/16/17 22:07 Dose: 1,000 mg Atorvastatin Calcium (Lipitor) 20 mg PO QHS [facility] Last Admin: 10/16/17 22:06 Dose: 20 mg Bumetanide (Bumex) 2 mg PO BIDDIUR [facility] Last Admin: 10/16/17 19:50 Dose: 2 mg Clotrimazole (Lotrisone) 0.5 gm TOP BID PRN PRN Reason: RASH Ferrous Sulfate (Iron) 325 mg PO WMEALS [facility] Insulin Detemir (Levemir Flextouch) 6 unit SQ QHS [facility] Last Admin: 10/16/17 22:03 Dose: 6 unit Levothyroxine Sodium (Synthroid) 125 mcg PO DAILYTHY [facility] Magnesium Oxide (Mag Ox) 400 mg PO DAILY [facility] Metoprolol Tartrate (Lopressor) 12.5 mg PO BID [facility] Last Admin: 10/16/17 22:07 Dose: 12.5 mg Multivitamins/Minerals (Centrum) 1 tab PO DAILY [facility] Oxycodone/Acetaminophen (Percocet 10-325 Mg Tablet) 1 each PO Q4H PRN PRN Reason: Pain - General Oxycodone/Acetaminophen (Percocet 10-325 Mg Tablet) 2 each PO Q4H PRN PRN Reason: Pain - General Polyethylene Glycol (Miralax) 17 gm PO QHS PRN PRN Reason: CONSTIPATION Potassium Chloride (Klor-Con) 20 meq PO BIDWM [facility] Last Admin: 10/16/17 19:50 Dose: 20 meq Ranitidine HCl (Zantac) 150 mg PO QHS [facility] Last Admin: 10/16/17 22:07 Dose: 150 mg Senna/Docusate Sodium (Senna Plus) 2 each PO QHS [facility] Last Admin: 10/16/17 22:06 Dose: 2 each Tamsulosin HCl (Flomax) 0.4 mg PO DAILY [facility] Vitamin D (Vitamin D3) 5,000 unit PO DAILY [facility] Warfarin Sodium (Coumadin) 3 mg PO [id number] [facility] Physical Exam - Vital Signs Vital Signs: Vital Signs - Last 24 Hrs Temp Pulse Resp BP BP Pulse Ox 10/16/17 21:22 16 98 10/16/17 20:00 97.9 F 79 18 92/62 95 10/16/17 17:10 97.6 F 73 18 93/55 96 - General General Appearance: Alert, Oriented x3 Limitations: Physical limitation - Head Head exam: Normal inspection - Eye Eye exam: Normal appearance, PERRL Pupils: Normal accommodation - ENT ENT exam: Normal exam, Mucous membranes moist, Normal external ear exam, Normal orophraynx, TM's normal bilaterally Ear exam: Normal external inspection. negative: External canal tenderness Nasal Exam: Normal inspection. negative: Discharge, Sinus tenderness Mouth exam: Normal external inspection, Tongue normal Teeth exam: Normal inspection. negative: Dental caries Throat exam: Normal inspection. negative: Tonsillar erythema, Tonsillar exudate - Neck Neck exam: Normal inspection, Full ROM. negative: Tenderness - Respiratory Respiratory exam: Normal lung sounds bilaterally. negative: Respiratory distress - Cardiovascular Cardiovascular Exam: Regular rate, Normal rhythm, Normal heart sounds Peripheral Pulses: 0: Dorsalis Pedis (R), Dorsalis Pedis (L), 2+: Radial (R), Radial (L) - GI/Abdominal GI/Abdominal exam: Soft, Normal bowel sounds. negative: Tenderness H&P Results - Labs Result Diagrams: 10/18/17 06:05 10/18/17 06:05 Discharge Potential - Discharge Needs Community Services Used Prior to Admission: Home Delivered Meals, Home Health Nurse, Occupational Therapy, Physical Therapy Patient Discharge Plan Description: Return Home, [facility], Visiting Nurse Community Services Needed at Discharge: Home Delivered Meals, Home Health Nurse , Occupational Therapy, Physical Therapy Plan - Swing Bed Certification Initial Certification Due: 10/16/17 14 Day Re-Cert Due: 10/30/17 44 Day Re-Cert Due: 11/29/17 74 Day Re-Cert Due: 12/29/17 - Detailed Diagnosis and Plan (1) Physical deconditioning Current Visit: No Status: Acute Base Code: R53.81 - OTHER MALAISE Comment : - pt has gait and stance difficulty, primarly as a result of spine and foot problems. - s/p cervical laminectomy and bilateral lower ext edema - PT/OT/ambulation with walker and assist. Fall precuations. (2) Acute worsening of stage 3 chronic kidney disease Current Visit: No Status: Chronic Base Code: N18.3 - CHRONIC KIDNEY DISEASE , STAGE 3 (MODERATE) Comment: - Cr 2.3, cont to trend. Reducing Bumex to 2mg QD from BID. - 2 liters fluid restriction due to HF - avoid nephrotoxic agents and fluid challenge with caution. (3) Diuretic-induced hypokalemia Current Visit: Yes Status: Acute Base Code: E87.6 - HYPOKALEMIA; T50.2X5A - ADVRS EFF OF CRBNC-ANHYDR INHIBTR, BENZO/OTH DIURETC, INIT Comment: - Bun/Cr: 66/2.3 respectively - hold all nephrotoxins, reduce dosing of Bumex to 2mg QD - fluid challenge with caution and repeat labs on 10/20 (4) Bilateral lower extremity edema Current Visit: No Status: Acute Base Code: R60.0 - LOCALIZED EDEMA Comment : - pt has history of chronic lower ext edema. Echo 2014 EF 65%, - recent echo shows preserved EF w/ diastolic dsfx - cont Bumex 2mg QD, cont use of home compression device and SCDs daily. Ambulation encouraged. - fluid restricted to 2 liters QD (5) CHF (congestive heart failure) Current Visit: No Status: Chronic Qualifiers: Congestive heart failure type: diastolic Congestive heart failure chronicity: chronic Qualified Code(s): I50.32 - Chronic diastolic (congestive ) heart failure Base Code: I50.9 - HEART FAILURE, UNSPECIFIED Comment: - 2D echo evidence of heart failure with preserved EF. - pt to cont on metoprolol 12.5mg BID, Lipitor 20mg, Bumex 2mg QD (6) Degenerative disc disease, cervical Current Visit: No Status: Acute Base Code: M50.30 - OTHER CERVICAL DISC DEGENERATION, UNSP CERVICAL REGION Comment: - chronic back s/p cervical laminectomy with bilateral foraminotomies. - ambulation as tolerated and pain control with PO Percocet 10/325mg Q4H (7) Hypertension Current Visit: No Status: Acute Qualifiers: Hypertension type: essential hypertension Qualified Code(s): I10 - Essential (primary) hypertension Base Code: I10 - ESSENTIAL (PRIMARY) HYPERTENSION Comment: - pts BP is marginal, and requires close monitoring and titration of medications. - Lopressor 12.5mg BID w/ holding parameters, Bumex changed to 2mg daily. (8) Hypothyroidism Current Visit: No Status: Acute Qualifiers: Hypothyroidism type: unspecified Qualified Code(s): E03.9 - Hypothyroidism , unspecified Base Code: E03.9 - HYPOTHYROIDISM, UNSPECIFIED Comment: - Synthyroid 125mcg QD - check TSH (9) Diabetes Current Visit: No Status: Chronic Qualifiers: Diabetes mellitus type: type 2 Diabetes mellitus complication status: with hyperglycemia Diabetes mellitus predatory animal exterminator insulin use: with predatory animal exterminator use Qualified Code(s): E11.65 - Type 2 diabetes mellitus with hyperglycemia; Z79.4 - [facility] (current) use of insulin Base Code: E11.9 - TYPE 2 DIABETES MELLITUS WITHOUT COMPLICATIONS Comment: - serum glucose 133 - cont Levemir 6units SQ QHS, accu checks ACHS - diabetic diet ordered 09/15/17 1850 (10) Anemia Current Visit: No Status: Chronic Base Code: D64.9 - ANEMIA, UNSPECIFIED Comment: - likely of chronic disease, Hgb 10.9, MCV 90.5, on Fe 65mg TID w/ meals - no active bleeding, cont on Warfarin 3mg QD, pharmacy to dose (11) DVT prophylaxis Current Visit: No Status: Acute Base Code: [id number] - Comment: - Coumadin management for DVT prophylaxis and chronic anticoagulation therapy for history of PAF s/p CV - Cont to dose Warfarin with PT/INR check per pharmacy protocol. (12) Full code status Current Visit: No Status: Acute Base Code: Z78.9 - OTHER SPECIFIED HEALTH STATUS Comment: FULL CODE - Disposition daily PT/OT for conditioning and strength training.
--- NOTE | 2017-10-17 09:14 | Rehab Evaluation ---
Patient Information - Patient Information Diagnosis: CHF Ordered Treatment: PT Evaluate and Treat Status: Initial Evaluation History: Detail (The patient was previously an inpatient at [facility] and was transferred to [facility] for medical management. The patient is transferred back to [facility] for Rehabilitation.) Past Medical/Surgical Hx: PAST MEDICAL/SURGICAL HISTORY Past Surgical History pump trial with dilaudid implanted cath ( permanent device in place) Back surgery X5, neck surgery, Hip & shoulder sx ,Bunionectomy,bilat right hip replacement, AICD , abscess rt thigh, septic hip, hematoma rt thigh , revision x2, evac of hematoma post rt hip; lumbar rhizotomy 05/31/15. permanent pain pump 2015 C2-3 lminectomy 09/19 PMH - Respiratory Hx Respiratory Disorders Yes Hx Asthma Yes Hx Bronchitis No Hx Chronic Obstructive Yes Pulmonary Disease (COPD) Hx Dyspnea Yes Hx Pneumonia Yes: 1989, current 2016 Hx Pulmonary Embolism No Hx Sleep Apnea No Hx Tuberculosis No Hx of CPAP No Hx of SOB Yes: CHF PMH - Cardiovascular Hx Cardiovascular Disorders Yes Hx Abnormal EKG Yes Hx Cardiac Catheterization No Hx Chest Pain No Hx Congestive Heart Failure Yes Hx Deep Vein Thrombosis Yes: 20 years ago after being kicked by a cow, current rt ankle 01/2017 Hx Edema Yes: bilat legs recent hospitalization Hx Heart Attack No Hx Hypertension Yes Hx Irregular Heartbeat Yes: hx a fib had cardioversion 1990 & 01/2017 Hx Palpitations No Hx Pacemaker/Defibrillator Yes: 2014 Hx Vascular Disease Yes Hx Transient Ischemic Attacks No (TIA) Comment: hospitalizations states cardiac arrest during past hospitalization 07/18 PMH - Neuro Hx Neurological Disorders No Hx Brain Tumor No Hx Cerebrovascular Accident No Hx Dementia No Hx Dizziness No Hx Headaches No Hx Neuropathy Yes Hx Parkinson's Disease No Hx Seizures No: denies Hx Speech Problem No Hx Syncope No Hx Transient Ischemic Attacks No (TIA) PMH - GI Hx Gastrointestinal Disorders Yes Hx Abdominal Pain No Hx Celiac Disease No Hx Crohn's Disease No Hx Diverticulitis No Hx Gastrointestinal Bleed No Hx Gastroesophageal Reflux No: denies reflux Hx Hepatitis/Jaundice No Hx Hiatal Hernia No Hx Irritable Bowel No Hx Liver Disease No Hx Nausea/Vomiting No Hx Obstructive Bowel No Hx Pancreatitis No Hx Rectal Bleeding No Hx Ulcer No Hx Weight Loss/Weight Gain No PMH - Hx Genitourinary Disorders No Hx Bladder Problem No Hx Kidney Stones No Hx Prostate Problems No: pt states no but on flomax Hx Renal Disease Yes Hx Urinary Tract Infection No PMH - Endocrine Hx Endocrine Disorders Yes Hx Diabetes Yes Hx Thyroid Disease No Hx of NIDDM Yes Hx of IDDM No Comment: checks blood sugars bid (100-140)/ulcers on feet due to poor circulation PMH - Musculoskeletal Hx Musculoskeletal Disorders Yes Hx Arthritis Yes Hx Back Injury Yes Hx Fibromyalgia No Hx Gout No Hx Musculoskeletal Disease Yes Hx Osteoporosis No Comment: chronic pain; hx septic hip in past PMH - Psych Hx Psychiatric Problems No Hx Anxiety No Hx Behavior Problems No Hx Depression No Hx Emotional Abuse No Hx Sexual Abuse No Hx Suicide Attempt No Major Depressive Episode No Feelings of Hopelessness No PMH - Hematology/Oncology Hx Hematology/Oncology Yes Disorders Hx Anemia Yes Hx Blood Disorders No Hx Bruising Yes Hx Cancer Yes: skin Hx Clotting Problems Yes Hx Sickle Cell Disease No Hx Unexplained Bleeding No Hx Blood Transfusion Reaction No Comment: pt to bridge with Lovenox 4 days preop Premorbid Status: Detail (Prior to recent cervical spine surgery the patient was functional , ambulatory with 2 canes.) Social History: Detail (The patient oves in a one story home with 3 steps at the enterance and one handrail. The patient has two bathrooms, one with a shower stall and elevated toilet seat with grab bars and one with a tub/shower combination and standard toilet with grab bars.) Precautions: [place], Other (contact isolation) - Time With Patient Total Time Spent With Patient (Min): 30 Treatment Procedures: Detail (Initial Evaluation.) Subjective Information - Subjective Information Per Patient (The patient complains of L groin pain and cervical pain. The patient did not rate his pain using the 0-10 pain scale.) Objective Data - Mental Status Patient Orientation: Oriented x3 - Visual Perception Appears within normal limits for therapeutic activities - ROM Not within normal limits (Cervical AROM is as follows: flexion 25 degrees, sidebending bilaterally 10 degrees, rotation L 25 degrees, R 30 degrees. L hip AROM was not tested secondary to groin pain, knee and ankle AROM are WNL. R LE AROM was within functional limits.) - Strength/Tone Not within normal limits (The patient's LE strength was as follows: L hip flexion 3-/5, due to pain complaints, R hip flexion 3+/5, bilateral Hip adductors and abductors 4-/5, bilateral hip extensors 3/5, R quadriceps and hamstrings 4/5, L 4+/5.) - Bed Mobility Needs Assist (Not assessed.) - Transfers Independent (Independent with sit to and from stand and toilet transfer.) - Balance Balance Sitting: Good Balance Standing: Good - Gait Detail (The patient ambulated with wheeled walker with supervision for safety a distance of 150 feet x 1.) Therapy Assessment - Therapy Assessment Detail (The patient exhibits cervical and LE pain complaints which are limiting mobility. The patient was independent with transfers and ambulation with walker , and was instructed to ambulate in hallway with nursing staff and family. Feel the patient will progress well in Rehab with goals focising on stairclimbing, and independent ambulation with 2 canes. (previous functional level).) Patient Education - Patient Education Teaching Topic: Exercise/Activity (The patient was instructed in cervical AROM exercises and LE strengthening exercises.) Response: Return Demonstration Teaching Method: Demonstration, Handout Teaching Recipient: Patient Barriers To Learning: Age Related Problem List - Problem List Physical Therapy Problem List: Detail (1) Cervical and L kary region pain 2) Decreased LE strength 3) Decreased ability to complete sustained physical activity 4) Non ambulatory on stairs) Goals - Goals Physical Therapy Goals: 1) The patient will ambulate independently on stairs with use of assistive device. 2) Increase LE strength 1/3 muscle grade to improve stability of gait. 3) The patient will ambulate community distances( 350 feet) with appropriate assistive device. 4) Assess bed mobility. 5) The patient will be independent with pain management techniques. Plan - Plan Physical Therapy Plan: PT M-F 1 to 2 times a day for gait training, transfer training, LE strengthening exercises, manual therapy techniques as needed to manage pain complaints.
[2017-10-17] MEDS: BREO (FLUTICASONE/VILANTEROL) 200MCG/25MCG INHALER INH SCH (10:06)
[2017-10-17] MEDS: LEVOTHYROXINE SODIUM 125 MCG TABLET PO SCH (10:14)
[2017-10-17] MEDS: FERROUS SULFATE 325 MG TAB PO SCH ×3 (10:15→18:12)
[2017-10-17] MEDS: POTASSIUM CHLORIDE 20 MEQ TABLET PO SCH ×2 (10:15→18:12)
[2017-10-17] MEDS: BUMETANIDE 1 MG TABLET PO SCH ×2 (10:15→18:11)
[2017-10-17] MEDS: MULTIVITAMINS/MINERALS TABLET PO SCH (10:16)
[2017-10-17] MEDS: METOPROLOL TART 25 MG TABLET PO SCH ×2 (10:17→22:30)
[2017-10-17] MEDS: TAMSULOSIN HCL 0.4 MG CAP.ER.24H PO SCH (10:17)
[2017-10-17] MEDS: ASCORBIC ACID 500 MG TAB PO SCH ×2 (10:18→22:30)
[2017-10-17] MEDS: CHOLECALCIFEROL 1,000 UNIT TABLET PO SCH (10:18)
[2017-10-17] MEDS: MAGNESIUM OXIDE 400 MG TABLET PO SCH (10:18)
--- NOTE | 2017-10-17 15:33 | Rehab Evaluation ---
Patient Information - Patient Information Diagnosis: CHF and General Deconditioning Ordered Treatment: OT Evaluate and Treat Status: Initial Evaluation Surgery: No History: Detail (The patient was previously an inpatient at [facility] and was transferred to [facility] for medical management. The patient is transferred back to [facility] for Rehabilitation.) Past Medical/Surgical Hx: PAST MEDICAL/SURGICAL HISTORY Past Surgical History pump trial with dilaudid implanted cath ( permanent device in place) Back surgery X5, neck surgery, Hip & shoulder sx ,Bunionectomy,bilat right hip replacement, AICD , abscess rt thigh, septic hip, hematoma rt thigh , revision x2, evac of hematoma post rt hip; lumbar rhizotomy 05/31/15. permanent pain pump 2015 C2-3 lminectomy 09/19 PMH - Respiratory Hx Respiratory Disorders Yes Hx Asthma Yes Hx Bronchitis No Hx Chronic Obstructive Yes Pulmonary Disease (COPD) Hx Dyspnea Yes Hx Pneumonia Yes: 1989, current 2016 Hx Pulmonary Embolism No Hx Sleep Apnea No Hx Tuberculosis No Hx of CPAP No Hx of SOB Yes: CHF PMH - Cardiovascular Hx Cardiovascular Disorders Yes Hx Abnormal EKG Yes Hx Cardiac Catheterization No Hx Chest Pain No Hx Congestive Heart Failure Yes Hx Deep Vein Thrombosis Yes: 20 years ago after being kicked by a cow, current rt ankle 01/2017 Hx Edema Yes: bilat legs recent hospitalization Hx Heart Attack No Hx Hypertension Yes Hx Irregular Heartbeat Yes: hx a fib had cardioversion 1990 & 01/2017 Hx Palpitations No Hx Pacemaker/Defibrillator Yes: 2014 Hx Vascular Disease Yes Hx Transient Ischemic Attacks No (TIA) Comment: hospitalizations states cardiac arrest during past hospitalization 07/18 PMH - Neuro Hx Neurological Disorders No Hx Brain Tumor No Hx Cerebrovascular Accident No Hx Dementia No Hx Dizziness No Hx Headaches No Hx Neuropathy Yes Hx Parkinson's Disease No Hx Seizures No: denies Hx Speech Problem No Hx Syncope No Hx Transient Ischemic Attacks No (TIA) PMH - GI Hx Gastrointestinal Disorders Yes Hx Abdominal Pain No Hx Celiac Disease No Hx Crohn's Disease No Hx Diverticulitis No Hx Gastrointestinal Bleed No Hx Gastroesophageal Reflux No: denies reflux Hx Hepatitis/Jaundice No Hx Hiatal Hernia No Hx Irritable Bowel No Hx Liver Disease No Hx Nausea/Vomiting No Hx Obstructive Bowel No Hx Pancreatitis No Hx Rectal Bleeding No Hx Ulcer No Hx Weight Loss/Weight Gain No PMH - Hx Genitourinary Disorders No Hx Bladder Problem No Hx Kidney Stones No Hx Prostate Problems No: pt states no but on flomax Hx Renal Disease Yes Hx Urinary Tract Infection No PMH - Endocrine Hx Endocrine Disorders Yes Hx Diabetes Yes Hx Thyroid Disease No Hx of NIDDM Yes Hx of IDDM No Comment: checks blood sugars bid (100-140)/ulcers on feet due to poor circulation PMH - Musculoskeletal Hx Musculoskeletal Disorders Yes Hx Arthritis Yes Hx Back Injury Yes Hx Fibromyalgia No Hx Gout No Hx Musculoskeletal Disease Yes Hx Osteoporosis No Comment: chronic pain; hx septic hip in past PMH - Psych Hx Psychiatric Problems No Hx Anxiety No Hx Behavior Problems No Hx Depression No Hx Emotional Abuse No Hx Sexual Abuse No Hx Suicide Attempt No Major Depressive Episode No Feelings of Hopelessness No PMH - Hematology/Oncology Hx Hematology/Oncology Yes Disorders Hx Anemia Yes Hx Blood Disorders No Hx Bruising Yes Hx Cancer Yes: skin Hx Clotting Problems Yes Hx Sickle Cell Disease No Hx Unexplained Bleeding No Hx Blood Transfusion Reaction No Comment: pt to bridge with Lovenox 4 days preop Premorbid Status: Detail (Prior to recent cervical spine surgery the patient was functional , ambulatory with 2 canes. Pt. was independent with all self- care I/ADL's, including driving, dressing, bathing, and meal prep. Pt. has a hx of multiple sx of BUE, back, and neck but pt. was able to perform functional activities with modified independence. Pt. reported he stood in shower to bathe. ) Social History: Detail (The patient oves in a one story home with 3 steps at the enterance and one handrail. The patient has two bathrooms, one with a shower stall, HH shower head, and elevated toilet seat with grab bars, and one with a tub/shower combination and standard toilet with grab bars (pt states he doesn't use). Pt. reported he lived at home alone, and has a daughter that is able to come over to help occasionally if needed.) Precautions: [employer], Cardiac (fluid restrictions), Other (contact isolation) - Time With Patient Total Time Spent With Patient (Min): 30 Treatment Procedures: Detail (Initial evaluation. Educ. provided/demonstrated shoulder isometric exercises (retraction, rolls, shrugs); pt. stated "that feels good; they wouldn't let me move at [facility]".) Subjective Information - Subjective Information Per Patient Objective Data - Pain Pain Present: Yes (Pt. has pain in back, neck, bilateral shoulders, and general muscle soreness. Pt. stated R shd & biceps pain is 9/10.) - Mental Status Patient Orientation: Oriented x3 - Visual Perception Appears within normal limits for therapeutic activities (with use of glasses for reading) - ROM Not within normal limits (BUE Shd flex approx. 100 degrees, abd approx 90. Lacking approx. 20 degrees wrist flex & ext. BUE WNL: elbow flex, ext, supination, pronation, and digit ROM.) - Strength/Tone Not within normal limits (RUE notably weaker than LUE. RUE shd flex at 90 degrees MMT 3+/5, LUE 4/5. RUE biceps 3+/5, LUE 4/5. BUE triceps, and sup/pro WFL at 4+/5. Product Handler strength (i.e. squeezing fingers) equal and strong.) - Coordination Appears within normal limits for therapeutic activities - Transfers Independent (sit<>stand EOB to walker) - Balance Balance Sitting: Good Balance Standing: Good - Sensation Intact (BUE fingertips light touch intact) - ADL's/IADL's Detail (Pt. states one of his main goals is to be able to drive with decreased R shd/biceps pain. Pt. states his arm feels weak. Pt. verbalized how he dressed BLE (elastic waist pants and socks) this morning using rail car welder. Pt. reported he currently doesn't feel safe showering independently, but would like a shower. Pt. demo. decreased endurance/activity tolerance and SOB with minimal activity.) Therapy Assessment - Therapy Assessment Detail (Pt. would benefit from skilled in-pt. OT services to maximize safety and independence with self-care tasks, improve BUE strength, and improve activity tolerance to perform ADL routine.) Patient Education - Patient Education Teaching Topic: Exercise/Activity Response: Return Demonstration, Verbalize Understanding Teaching Method: Discussion, Demonstration Teaching Recipient: Patient Barriers To Learning: Physical (poor activity tolerance/endurance; SOB d/t CHF) Problem List - Problem List Physical Therapy Problem List: Detail (1) Cervical and L kary region pain 2) Decreased LE strength 3) Decreased ability to complete sustained physical activity 4) Non ambulatory on stairs) Occupational Therapy Problem List: Detail (1) BUE weakness, pain and impaired shd AROM 2) decreased endurance/activity tolerance 3) decreased safety and indepence in self-care ADL's) Goals - Goals Physical Therapy Goals: 1) The patient will ambulate independently on stairs with use of assistive device. 2) Increase LE strength 1/3 muscle grade to improve stability of gait. 3) The patient will ambulate community distances( 350 feet) with appropriate assistive device. 4) Assess bed mobility. 5) The patient will be independent with pain management techniques. Occupational Therapy Goals: 1) Perform shower evaluation to determine safety and level of independence. 2) Maximize independence and safety in ADL's. 3) Increase pt's activity tolerance/endurance so pt. will be able to perform typical ADL routine. 4) Improve BUE strength to MMT 4/5. Prognosis - Prognosis Moderate Plan - Plan Physical Therapy Plan: PT M-F 1 to 2 times a day for gait training, transfer training, LE strengthening exercises, manual therapy techniques as needed to manage pain complaints. Occupational Therapy Plan: Provide in-pt OT services 2-4x/week M-F during typical rehab business hours to maximize safety and independence with ADL's, improve BUE strength to perform functional activities, and improve activity tolerance so pt. can perform typical ADL routine.
[2017-10-17] MEDS: WARFARIN 1 MG TABLET PO SCH (18:11)
[2017-10-17] MEDS: ATORVASTATIN 20 MG TABLET PO SCH (22:30)
[2017-10-17] MEDS: RANITIDINE HCL 150 MG TABLET PO SCH (22:30)
[2017-10-17] MEDS: LEVEMIR FLEXTOUCH 100 UNIT/ML INSULIN PEN SQ SCH (22:31)
[2017-10-17] MEDS: SENNOSIDES/DOCUSATE SODIUM UD CAPSULE PO SCH (22:39)
[2017-10-18 06:54] LABS: BASO % 0.2 % (0-6); EOS % 1.4 % (0-6); GRAN % 80.4 % (47-80); HEMATOCRIT 35.1 % (42.0-52.0); HEMOGLOBIN 10.9 gm/dl (14.0-18.0); LYMPH % 6.6 % (16-45); MEAN CELL VOLUME 90.5 fl (81-97); MEAN CORPUSCULAR HGB CONC 31.1 g/dl (32-36); MEAN PLATELET VOLUME 11.9 fl (7.4-10.4); MONO % 11.4 % (0-9); PLATELET COUNT 206 K/uL (130-400); RED BLOOD COUNT 3.88 M/uL (4.40-5.70); WHITE BLOOD COUNT W/O DIFF 11.1 K/uL (4.2-12.2)
[2017-10-18] MEDS: LEVOTHYROXINE SODIUM 125 MCG TABLET PO SCH (07:01)
[2017-10-18 07:03] LABS: INR 2.36; PROTHROMBIN TIME (PATIENT) 25.7 SECONDS (9.5-12.1)
[2017-10-18 07:08] LABS: CREATININE 2.3 mg/dL (0.7-1.2)
[2017-10-18] MEDS ORDERED: SOD CHLOR 0.9% WITH KCL 40MEQ 40 MEQ/1,000 ML IV.SOLN IV ONE (08:18)
[2017-10-18] MEDS ORDERED: POTASSIUM CHLORIDE 20 MEQ TABLET PO ONE (08:18)
[2017-10-18] MEDS: FERROUS SULFATE 325 MG TAB PO SCH ×4 (09:00→16:36)
[2017-10-18] MEDS: POTASSIUM CHLORIDE 20 MEQ TABLET PO SCH ×3 (09:00→16:36)
[2017-10-18] MEDS: BREO (FLUTICASONE/VILANTEROL) 200MCG/25MCG INHALER INH SCH (09:32)
[2017-10-18] MEDS: BUMETANIDE 1 MG TABLET PO SCH ×2 (09:40→16:23)
[2017-10-18] MEDS: MAGNESIUM OXIDE 400 MG TABLET PO SCH (09:40)
[2017-10-18] MEDS: MULTIVITAMINS/MINERALS TABLET PO SCH (09:40)
[2017-10-18] MEDS: CHOLECALCIFEROL 1,000 UNIT TABLET PO SCH (09:40)
[2017-10-18] MEDS: ASCORBIC ACID 500 MG TAB PO SCH ×2 (09:40→22:42)
[2017-10-18] MEDS: TAMSULOSIN HCL 0.4 MG CAP.ER.24H PO SCH (09:41)
[2017-10-18] MEDS: METOPROLOL TART 25 MG TABLET PO SCH ×2 (09:43→22:42)
[2017-10-18] MEDS: OXYCODONE/APAP 10MG-325MG TABLET PO PRN ×2 (13:23→22:48)
[2017-10-18] MEDS: WARFARIN 1 MG TABLET PO SCH (16:23)
[2017-10-18] MEDS: SENNOSIDES/DOCUSATE SODIUM UD CAPSULE PO SCH (22:42)
[2017-10-18] MEDS: ATORVASTATIN 20 MG TABLET PO SCH (22:42)
[2017-10-18] MEDS: RANITIDINE HCL 150 MG TABLET PO SCH (22:42)
[2017-10-18] MEDS: LEVEMIR FLEXTOUCH 100 UNIT/ML INSULIN PEN SQ SCH (22:43)
[2017-10-19] MEDS: LEVOTHYROXINE SODIUM 125 MCG TABLET PO SCH (06:06)
[2017-10-19] MEDS: FERROUS SULFATE 325 MG TAB PO SCH ×4 (09:11→17:40)
[2017-10-19] MEDS: ASCORBIC ACID 500 MG TAB PO SCH ×2 (09:11→22:17)
[2017-10-19] MEDS: POTASSIUM CHLORIDE 20 MEQ TABLET PO SCH ×3 (09:11→17:40)
[2017-10-19] MEDS: MAGNESIUM OXIDE 400 MG TABLET PO SCH (09:11)
[2017-10-19] MEDS: MULTIVITAMINS/MINERALS TABLET PO SCH (09:11)
[2017-10-19] MEDS: BUMETANIDE 1 MG TABLET PO SCH (09:11)
[2017-10-19] MEDS: CHOLECALCIFEROL 1,000 UNIT TABLET PO SCH (09:11)
[2017-10-19] MEDS: TAMSULOSIN HCL 0.4 MG CAP.ER.24H PO SCH (09:11)
[2017-10-19] MEDS: METOPROLOL TART 25 MG TABLET PO SCH ×2 (09:17→22:00)
[2017-10-19] MEDS: BREO (FLUTICASONE/VILANTEROL) 200MCG/25MCG INHALER INH SCH (10:06)
[2017-10-19] MEDS: OXYCODONE/APAP 10MG-325MG TABLET PO PRN ×2 (13:49→22:17)
[2017-10-19 14:14] LABS: CREATININE 2.1 mg/dL (0.7-1.2)
[2017-10-19] MEDS ORDERED: POTASSIUM CHLORIDE 20 MEQ TABLET PO ONE (15:32)
[2017-10-19] MEDS: WARFARIN 1 MG TABLET PO SCH (15:57)
[2017-10-19] MEDS: SENNOSIDES/DOCUSATE SODIUM UD CAPSULE PO SCH (22:00)
[2017-10-19] MEDS: RANITIDINE HCL 150 MG TABLET PO SCH (22:17)
[2017-10-19] MEDS: ATORVASTATIN 20 MG TABLET PO SCH (22:17)
[2017-10-19] MEDS: LEVEMIR FLEXTOUCH 100 UNIT/ML INSULIN PEN SQ SCH (22:17)
[2017-10-20] MEDS: LEVOTHYROXINE SODIUM 125 MCG TABLET PO SCH (06:06)
[2017-10-20 06:47] LABS: INR 2.09; PROTHROMBIN TIME (PATIENT) 22.7 SECONDS (9.5-12.1)
[2017-10-20 06:56] LABS: ALB/GLOB RATIO 1.4 (1.1-1.8); BILIRUBIN,TOTAL 0.6 mg/dL (0.2-1.0); CREATININE 1.8 mg/dL (0.7-1.2); TOTAL PROTEIN 6.8 g/dL (6.6-8.7)
[2017-10-20] MEDS: FERROUS SULFATE 325 MG TAB PO SCH ×3 (09:10→22:07)
[2017-10-20] MEDS: BUMETANIDE 1 MG TABLET PO SCH (09:11)
[2017-10-20] MEDS: POTASSIUM CHLORIDE 20 MEQ TABLET PO SCH ×2 (09:11→17:10)
[2017-10-20] MEDS: TAMSULOSIN HCL 0.4 MG CAP.ER.24H PO SCH (09:12)
[2017-10-20] MEDS: MULTIVITAMINS/MINERALS TABLET PO SCH (09:12)
[2017-10-20] MEDS: ASCORBIC ACID 500 MG TAB PO SCH ×2 (09:13→22:00)
[2017-10-20] MEDS: MAGNESIUM OXIDE 400 MG TABLET PO SCH (09:13)
[2017-10-20] MEDS: METOPROLOL TART 25 MG TABLET PO SCH ×2 (09:13→21:54)
[2017-10-20] MEDS: CHOLECALCIFEROL 1,000 UNIT TABLET PO SCH (09:14)
[2017-10-20] MEDS: BREO (FLUTICASONE/VILANTEROL) 200MCG/25MCG INHALER INH SCH (09:55)
[2017-10-20] MEDS: OXYCODONE/APAP 10MG-325MG TABLET PO PRN (11:05)
--- NOTE | 2017-10-20 11:30 | Physical Therapy Tx Note ---
Physical Therapy Tx Note - Treatment Note Tolerated: Good Total Time Spent With Patient: 45 Physical Therapy Tx Note: Detail (Patient states right hip and neck sore today. Patient transferred sit to and from stand independently. Patient ambulated 352 feet with wheeled walker SBA x1. Patient performed the following exercises x20 reps each: seated marching, LAQ, hamstring curls with blue theraband, seated hip abduction with blue theraband, isometric hip adduction, seated heel raises, and seated toe raises. Patient performed the following exercises x10 reps each: shoulder circles, scapular squeezes, and cervical rotation. Patient tolerated treatment well. Patient displays decreased strength and endurance with LAQ, seated hip abduction, and seated marching. Patient reports feeling sore, but good after treatment. Patient was left seated in chair with call light within reach.) Physical Therapy Problem List: Detail (1) Cervical and L kary region pain 2) Decreased LE strength 3) Decreased ability to complete sustained physical activity 4) Non ambulatory on stairs) Physical Therapy Goals: 1) The patient will ambulate independently on stairs with use of assistive device. 2) Increase LE strength 1/3 muscle grade to improve stability of gait. 3) The patient will ambulate community distances( 350 feet) with appropriate assistive device. 4) Assess bed mobility. 5) The patient will be independent with pain management techniques. Prognosis: Good Physical Therapy Plan: PT M-F 1 to 2 times a day for gait training, transfer training, LE strengthening exercises, manual therapy techniques as needed to manage pain complaints.
--- NOTE | 2017-10-20 14:47 | Physical Therapy Tx Note ---
Physical Therapy Tx Note - Treatment Note Tolerated: Good Total Time Spent With Patient: 40 Physical Therapy Tx Note: Detail (Patient was sitting in chair upon [facility] arrival. Patient states right anterior hip more sore this afternoon. Patient transferred sit to and from stand independently. Patient ambulated 352 feet with wheeled walker SBA x1. Patient performed the following exercises x15-20 reps each: standing heel raises, standing toe raises, rowing with green theraband, shoulder extension with green theraband, shoulder external rotation with green theraband, bicep curls with green theraband, LAQ with green theraband left, LAQ without theraband right, seated hip abduction with green theraband, hamstring curls with green theraband right, and hamstring curls with blue theraband left. Patient tolerated treatment well. Patient displays decreased strength and endurance with exercises this afternoon. Patient required frequent verbal cues to relax shoulders during exercises. Patient reports feeling tired after treatment. Patient was left seated in chair with call light within reach.) Physical Therapy Problem List: Detail (1) Cervical and L kary region pain 2) Decreased LE strength 3) Decreased ability to complete sustained physical activity 4) Non ambulatory on stairs) Physical Therapy Goals: 1) The patient will ambulate independently on stairs with use of assistive device. 2) Increase LE strength 1/3 muscle grade to improve stability of gait. 3) The patient will ambulate community distances( 350 feet) with appropriate assistive device. 4) Assess bed mobility. 5) The patient will be independent with pain management techniques. Prognosis: Good Physical Therapy Plan: PT M-F 1 to 2 times a day for gait training, transfer training, LE strengthening exercises, manual therapy techniques as needed to manage pain complaints.
[2017-10-20] MEDS: WARFARIN 1 MG TABLET PO SCH (17:08)
[2017-10-20] MEDS: LEVEMIR FLEXTOUCH 100 UNIT/ML INSULIN PEN SQ SCH (21:59)
[2017-10-20] MEDS: ATORVASTATIN 20 MG TABLET PO SCH (22:00)
[2017-10-20] MEDS: SENNOSIDES/DOCUSATE SODIUM UD CAPSULE PO SCH (22:00)
[2017-10-20] MEDS: RANITIDINE HCL 150 MG TABLET PO SCH (22:00)
[2017-10-21] MEDS: LEVOTHYROXINE SODIUM 125 MCG TABLET PO SCH (06:16)
--- NOTE | 2017-10-21 08:13 | Occupational Therapy Tx Note ---
Occupational Therapy Tx Note - Treatment Note Tolerated: Good Total Time Spent With Patient: 45 (ADL) Occupational Therapy Treatment Note: Detail (S: Pt up in chair, ready for showering. O: Sit to stand and amb to toilet with 2 wheeled walker Indly. Doffed shirt, PJ bottoms, briefs and sock type slippers with rn lvn Indly. Pt sit to stand and amb to shower with walker Indly. Pt completed showering in standing with walker and hand held shower Indly after set up. Pt dried self Indly. Pt amb to toilet and donned briefs and sweatpants Indly with rn lvn, pt had mild difficulty bending forward. Pt unable to don sock type slippers using sock aid as he reports the slippers become too stretched out, slippers donned per therapist. Pt donned sweatshirt Indly. Pt stood at sink and completed oral hygiene and combed hair Indly. Pt amb to chair with walker Indly. A: Pt reports increased neck pain after showering and dressing, fatigue noted near end of session. Ind with showering and dressing with exception of sock type slippers.) Occupational Therapy Problem List: Detail (1) BUE weakness, pain and impaired shd AROM 2) decreased endurance/activity tolerance 3) decreased safety and indepence in self-care ADL's) Occupational Therapy Goals: 1) Perform shower evaluation to determine safety and level of independence. 2) Maximize independence and safety in ADL's. 3) Increase pt's activity tolerance/endurance so pt. will be able to perform typical ADL routine. 4) Improve BUE strength to MMT 4/5. Prognosis: Good Occupational Therapy Plan: Provide in-pt OT services 2-4x/week M- during typical rehab business hours to maximize safety and independence with ADL's, improve BUE strength to perform functional activities, and improve activity tolerance so pt. can perform typical ADL routine.
[2017-10-21 08:16] LABS: BASO % 0.3 % (0-6); GRAN % 76.6 % (47-80); HEMATOCRIT 37.5 % (42.0-52.0); HEMOGLOBIN 11.6 gm/dl (14.0-18.0); LYMPH % 11.1 % (16-45); MEAN CELL VOLUME 90.6 fl (81-97); MEAN CORPUSCULAR HGB CONC 30.9 g/dl (32-36); MEAN PLATELET VOLUME 11.1 fl (7.4-10.4); PLATELET COUNT 244 K/uL (130-400); RED BLOOD COUNT 4.14 M/uL (4.40-5.70); RED CELL DISTRIBUTION WIDTH 16.9 % (11.5-14.5); WHITE BLOOD COUNT W/O DIFF 9.1 K/uL (4.2-12.2)
[2017-10-21 08:32] LABS: BILIRUBIN,TOTAL 0.6 mg/dL (0.2-1.0); CREATININE 1.8 mg/dL (0.7-1.2); TOTAL PROTEIN 7.2 g/dL (6.6-8.7)
[2017-10-21 08:37] LABS: ALBUMIN 4.2 g/dL (4.0-5.0)
[2017-10-21 08:42] LABS: ALB/GLOB RATIO 1.4 (1.1-1.8)
[2017-10-21 08:49] LABS: THYROID STIMULATING HORMONE 2.41 uIU/mL (0.270-4.20)
[2017-10-21] MEDS: OXYCODONE/APAP 10MG-325MG TABLET PO PRN (08:54)
[2017-10-21] MEDS: MAGNESIUM OXIDE 400 MG TABLET PO SCH (09:16)
[2017-10-21] MEDS: MULTIVITAMINS/MINERALS TABLET PO SCH (09:16)
[2017-10-21] MEDS: TAMSULOSIN HCL 0.4 MG CAP.ER.24H PO SCH (09:16)
[2017-10-21] MEDS: BREO (FLUTICASONE/VILANTEROL) 200MCG/25MCG INHALER INH SCH (09:16)
[2017-10-21] MEDS: METOPROLOL TART 25 MG TABLET PO SCH (09:16)
[2017-10-21] MEDS: POTASSIUM CHLORIDE 20 MEQ TABLET PO SCH ×2 (09:16→18:46)
[2017-10-21] MEDS: ASCORBIC ACID 500 MG TAB PO SCH ×2 (09:16→23:34)
[2017-10-21] MEDS: FERROUS SULFATE 325 MG TAB PO SCH ×3 (09:16→18:46)
[2017-10-21] MEDS: CHOLECALCIFEROL 1,000 UNIT TABLET PO SCH (09:17)
[2017-10-21] MEDS ORDERED: METOLAZONE 2.5 MG TABLET PO ONE (11:15)
[2017-10-21] MEDS: METOPROLOL SUCC 25 MG TAB.ER PO SCH (11:36)
[2017-10-21] MEDS: BUMETANIDE 1 MG TABLET PO SCH (11:39)
--- NOTE | 2017-10-21 14:25 | Physical Therapy Tx Note ---
Physical Therapy Tx Note - Treatment Note Tolerated: Good Total Time Spent With Patient: 40 Physical Therapy Tx Note: Detail (Pt was sleeping in chair upon arrival. Pt states pain in neck is increased today and feels really stiff. Pt states has been going for walks but feels really weak. Pt completed ex's of seated marching , ankle df and pf seated. bilateral shoulder horizontal abduction with yellow theraband, Bilateral shoulder ER, scapular squeezes all with yellow theraband and x 10 each. AROM of C-spine. cervical rotation, sidebending and retraction all x 10 bilaterally within pain free range. MTT x 15 minutes of MFR to bilateral UT, cervical paraspinals, OA release, scalene and levator releases with patient sitting. Gait training with front wheeled walker x 150 ft. Pt states fatigued after treatment and requested to use the bathroom and states independent with self care. Pt was left in bathroom and given a nurse call light if needed. Pt vishnu well and had improved cervical ROM after treatment.) Physical Therapy Problem List: Detail (1) Cervical and L kary region pain 2) Decreased LE strength 3) Decreased ability to complete sustained physical activity 4) Non ambulatory on stairs) Physical Therapy Goals: 1) The patient will ambulate independently on stairs with use of assistive device. 2) Increase LE strength 1/3 muscle grade to improve stability of gait. 3) The patient will ambulate community distances( 350 feet) with appropriate assistive device. 4) Assess bed mobility. 5) The patient will be independent with pain management techniques. Prognosis: Good Physical Therapy Plan: PT M-F 1 to 2 times a day for gait training, transfer training, LE strengthening exercises, manual therapy techniques as needed to manage pain complaints.
[2017-10-21] MEDS: WARFARIN 1 MG TABLET PO SCH (16:18)
[2017-10-21] MEDS: ATORVASTATIN 20 MG TABLET PO SCH (23:33)
[2017-10-21] MEDS: SENNOSIDES/DOCUSATE SODIUM UD CAPSULE PO SCH (23:33)
[2017-10-21] MEDS: LEVEMIR FLEXTOUCH 100 UNIT/ML INSULIN PEN SQ SCH (23:34)
[2017-10-21] MEDS: RANITIDINE HCL 150 MG TABLET PO SCH (23:34)
[2017-10-22] MEDS: LEVOTHYROXINE SODIUM 125 MCG TABLET PO SCH (06:17)
[2017-10-22 07:14] LABS: ALB/GLOB RATIO 1.4 (1.1-1.8); ALBUMIN 3.9 g/dL (4.0-5.0); BILIRUBIN,TOTAL 0.5 mg/dL (0.2-1.0); CREATININE 1.8 mg/dL (0.7-1.2); TOTAL PROTEIN 6.6 g/dL (6.6-8.7)
[2017-10-22 07:18] LABS: INR 2.42; PROTHROMBIN TIME (PATIENT) 26.4 SECONDS (9.5-12.1)
[2017-10-22] MEDS: POTASSIUM CHLORIDE 20 MEQ TABLET PO SCH ×2 (08:13→16:49)
[2017-10-22] MEDS: FERROUS SULFATE 325 MG TAB PO SCH ×3 (08:13→16:49)
[2017-10-22] MEDS: ASCORBIC ACID 500 MG TAB PO SCH ×3 (08:20→22:38)
[2017-10-22] MEDS: BUMETANIDE 1 MG TABLET PO SCH ×3 (08:22→16:49)
[2017-10-22] MEDS: MULTIVITAMINS/MINERALS TABLET PO SCH ×2 (08:22→11:04)
[2017-10-22] MEDS: CHOLECALCIFEROL 1,000 UNIT TABLET PO SCH ×2 (08:22→11:04)
[2017-10-22] MEDS: MAGNESIUM OXIDE 400 MG TABLET PO SCH ×2 (08:22→11:04)
[2017-10-22] MEDS: METOPROLOL SUCC 25 MG TAB.ER PO SCH ×2 (08:22→11:04)
[2017-10-22] MEDS: TAMSULOSIN HCL 0.4 MG CAP.ER.24H PO SCH ×2 (08:23→11:04)
[2017-10-22] MEDS ORDERED: METOLAZONE 2.5 MG TABLET PO ONE (09:30)
[2017-10-22] MEDS: BREO (FLUTICASONE/VILANTEROL) 200MCG/25MCG INHALER INH SCH (10:11)
--- NOTE | 2017-10-22 11:44 | Physical Therapy Tx Note ---
Physical Therapy Tx Note - Treatment Note Tolerated: Good Total Time Spent With Patient: 30 Physical Therapy Tx Note: Detail (The patient was up in chair when PT arrived. The patient is continuing to complain of cervical pain and R groin pain. The patient ambulated with 2 canes a distance of 30 feet x 1 with CG of 1. The patient complained of increased cervical pain. PT completed MFR of L upper trapezius followed by cervical stretching exercises in sidebending and rotation as tolerated. The patient completed LE exercises: hip marching, blue band hip abduction, hip adductor squeezes, hamstring curls blue band , LAQ x10 reps. The patient was given a cervical HP x 20 minutes. The patient felt pain relief following MHP.) Physical Therapy Problem List: Detail (1) Cervical and L kary region pain 2) Decreased LE strength 3) Decreased ability to complete sustained physical activity 4) Non ambulatory on stairs) Physical Therapy Goals: 1) The patient will ambulate independently on stairs with use of assistive device. 2) Increase LE strength 1/3 muscle grade to improve stability of gait. 3) The patient will ambulate community distances( 350 feet) with appropriate assistive device. 4) Assess bed mobility. 5) The patient will be independent with pain management techniques. Physical Therapy Plan: PT M-F 1 to 2 times a day for gait training, transfer training, LE strengthening exercises, manual therapy techniques as needed to manage pain complaints.
--- NOTE | 2017-10-22 15:00 | Physical Therapy Tx Note ---
Physical Therapy Tx Note - Treatment Note Tolerated: Good Total Time Spent With Patient: 30 Physical Therapy Tx Note: Detail (Patient states right groin and neck sore. Patient transferred sit to and from stand independently. Patient ambulated 144 feet with wheeled walker SBA x1. Patient performed the following exercises x15- 20 reps each: seated heel raises, seated toe raises, LAQ, seated marching, seated hamstring curls with green theraband right, seated hamstring curls with blue theraband left, seated hip abduction with green theraband, seated isometric hip adduction, glut squeezes, and abdominal isometrics. MHP x20 to neck with patient sitting. Patient tolerated treatment well. Patient displays decreased strength and endurance with LAQ, hamstring curls, glut squeezes, abdominal isometrics, seated hip abduction with theraband, and seated marching. Patient reports tired and sore after treatment. Patient was left seated in chair with call light within reach.) Physical Therapy Problem List: Detail (1) Cervical and L kary region pain 2) Decreased LE strength 3) Decreased ability to complete sustained physical activity 4) Non ambulatory on stairs) Physical Therapy Goals: 1) The patient will ambulate independently on stairs with use of assistive device. 2) Increase LE strength 1/3 muscle grade to improve stability of gait. 3) The patient will ambulate community distances( 350 feet) with appropriate assistive device. 4) Assess bed mobility. 5) The patient will be independent with pain management techniques. Prognosis: Good Physical Therapy Plan: PT M-F 1 to 2 times a day for gait training, transfer training, LE strengthening exercises, manual therapy techniques as needed to manage pain complaints.
[2017-10-22] MEDS: WARFARIN 1 MG TABLET PO SCH (16:49)
[2017-10-22] MEDS: SENNOSIDES/DOCUSATE SODIUM UD CAPSULE PO SCH (22:38)
[2017-10-22] MEDS: ATORVASTATIN 20 MG TABLET PO SCH (22:38)
[2017-10-22] MEDS: OXYCODONE/APAP 10MG-325MG TABLET PO PRN (22:38)
[2017-10-22] MEDS: RANITIDINE HCL 150 MG TABLET PO SCH (22:38)
[2017-10-22] MEDS: LEVEMIR FLEXTOUCH 100 UNIT/ML INSULIN PEN SQ SCH (22:39)
[2017-10-23] MEDS: LEVOTHYROXINE SODIUM 125 MCG TABLET PO SCH (06:13)
[2017-10-23] MEDS: FERROUS SULFATE 325 MG TAB PO SCH ×3 (08:02→17:02)
[2017-10-23] MEDS: POTASSIUM CHLORIDE 20 MEQ TABLET PO SCH ×2 (08:04→17:03)
[2017-10-23] MEDS: TAMSULOSIN HCL 0.4 MG CAP.ER.24H PO SCH (09:22)
[2017-10-23] MEDS: ASCORBIC ACID 500 MG TAB PO SCH ×2 (09:22→22:21)
[2017-10-23] MEDS: MULTIVITAMINS/MINERALS TABLET PO SCH (09:22)
[2017-10-23] MEDS: BUMETANIDE 1 MG TABLET PO SCH ×2 (09:22→17:03)
[2017-10-23] MEDS: MAGNESIUM OXIDE 400 MG TABLET PO SCH (09:22)
[2017-10-23] MEDS: CHOLECALCIFEROL 1,000 UNIT TABLET PO SCH (09:23)
[2017-10-23] MEDS: METOPROLOL SUCC 25 MG TAB.ER PO SCH (09:23)
[2017-10-23] MEDS: BREO (FLUTICASONE/VILANTEROL) 200MCG/25MCG INHALER INH SCH (09:39)
[2017-10-23] MEDS ORDERED: POTASSIUM CHLORIDE 20 MEQ TABLET PO ONE (12:06)
--- NOTE | 2017-10-23 12:09 | Physical Therapy Tx Note ---
Physical Therapy Tx Note - Treatment Note Tolerated: Good Total Time Spent With Patient: 60 Physical Therapy Tx Note: Detail (Patient states neck and right groin sore. Patient was seated in chair upon VICE PRESIDENT OF FINANCE arrival. Patient transferred sit to and from stand independently. Patient ambulated 120 feet with wheeled walker SBA x1. Patient transferred sit to and from stand independently. Patient performed Nustep L4 x10 minutes. Patient transferred sit to and from stand independently. Patient performed the following exercises: pulleys flexion, abduction, horizontal abduction/adduction x10 reps each, LAQ x15-20, seated marching x15-20, and hamstring curls with green theraband x15-20. MTT x20 minutes to bilateral neck, upper trap, scalenes, and cervical paraspinals with patient sitting. Patient transferred sit to and from stand independently. Patient declined MHP. Patient reports neck sore after treatment. Patient was left seated in chair with call light within reach.) Physical Therapy Problem List: Detail (1) Cervical and L kary region pain 2) Decreased LE strength 3) Decreased ability to complete sustained physical activity 4) Non ambulatory on stairs) Physical Therapy Goals: 1) The patient will ambulate independently on stairs with use of assistive device. 2) Increase LE strength 1/3 muscle grade to improve stability of gait. 3) The patient will ambulate community distances( 350 feet) with appropriate assistive device. 4) Assess bed mobility. 5) The patient will be independent with pain management techniques. Prognosis: Good Physical Therapy Plan: PT M-F 1 to 2 times a day for gait training, transfer training, LE strengthening exercises, manual therapy techniques as needed to manage pain complaints.
--- NOTE | 2017-10-23 14:38 | Physical Therapy Tx Note ---
Physical Therapy Tx Note - Treatment Note Tolerated: Good Total Time Spent With Patient: 20 Physical Therapy Tx Note: Detail (Pt states very fatigued after treatment this a.m. But states willing to do whatever is possible. Pt was sitting in chair upon arrival. Pt transferred sit to stand and return independently. Pt was able to walk 175 ft. with wheeled walker with contact guard assist due to weakness. Pt returned to chair and stated pain in bilateral shoulders and neck is still increased. Pt was given hot packs to bilateral shoulders x 20 minutes. Pt states decreased pain after HP. Pt to be seen tomorrow to continue therapy.) Physical Therapy Problem List: Detail (1) Cervical and L kary region pain 2) Decreased LE strength 3) Decreased ability to complete sustained physical activity 4) Non ambulatory on stairs) Physical Therapy Goals: 1) The patient will ambulate independently on stairs with use of assistive device. 2) Increase LE strength 1/3 muscle grade to improve stability of gait. 3) The patient will ambulate community distances( 350 feet) with appropriate assistive device. 4) Assess bed mobility. 5) The patient will be independent with pain management techniques. Prognosis: Good Physical Therapy Plan: PT M-F 1 to 2 times a day for gait training, transfer training, LE strengthening exercises, manual therapy techniques as needed to manage pain complaints.
[2017-10-23] MEDS ORDERED: METOLAZONE 2.5 MG TABLET PO ONE (15:30)
[2017-10-23] MEDS: WARFARIN 1 MG TABLET PO SCH (16:21)
[2017-10-23] MEDS: ATORVASTATIN 20 MG TABLET PO SCH (22:20)
[2017-10-23] MEDS: SENNOSIDES/DOCUSATE SODIUM UD CAPSULE PO SCH (22:21)
[2017-10-23] MEDS: LEVEMIR FLEXTOUCH 100 UNIT/ML INSULIN PEN SQ SCH (22:21)
[2017-10-23] MEDS: RANITIDINE HCL 150 MG TABLET PO SCH (22:29)
[2017-10-24] MEDS: LEVOTHYROXINE SODIUM 125 MCG TABLET PO SCH (07:02)
--- NOTE | 2017-10-24 08:05 | Physician Progress Note ---
Subjective - Date Date of Progress Note: 10/24/17 - Admitting Diagnosis Diagnosis: acute diastolic CHF; deconditioning - Subjective Nursing Care Plan Problem List Activity Intolerance (Swing Bed) Start: 10/16/17 18: 24 Freq: Status: Active Protocol: Created 10/16/17 18:24 RCS (Rec: 10/16/17 18:24 [facility] [id number]) Knowledge Deficit (Swing Bed) Start: 10/16/17 18: 24 Freq: Status: Active Protocol: Created 10/16/17 18:24 RCS (Rec: 10/16/17 18:24 [facility] [id number]) Pain (Swing Bed) Start: 10/16/17 18: 24 Freq: Status: Active Protocol: Created 10/16/17 18:24 RCS (Rec: 10/16/17 18:24 [facility] [id number]) Subjective: 10/24/17-Patient states he is doing well today. He still has soreness in his neck from surgery and says now the muscles in his legs are a little sore from doing PT, but overall, much improved from when he first came to us. He denies any shortness of breath or cough. Says the swelling in his legs is much improved since his sparrow stay. - Subjective Detail Constitutional: Reports: Weakness (generalized) Cardiovascular: Reports: Edema (mild). Denies: Chest pain, Dyspnea on exertion General - Cognitive Patterns Speech: Normal Thought Process: Intact Thought Content: Normal - Communication Select best description of speech pattern: Clear Speech Ability to express ideas and wants: Understood Understanding verbal content: Usually Understands - Mood and Behavior Patterns Appearance: Well Groomed Mood: Normal Attitude: Cooperative Motor Activity: Calm Affect: Appropriate Hallucinations: Denies - Physical Functioning Activity Level: Up with assist x1 Turning: Self ad trista, With partial assist ROM Ability: Moves all extremities Assistive Devices: Straight Cane, 2 Wheel Walker Ambulation Ability: Independent Bed Mobility: Independent Transfer Ability: Independent Bathing Ability: Independent Personal Hygiene: Independent Dressing Ability: Needs Assist Eating (Feeding) Ability: Independent Toileting Ability: Independent Administer Own Medication: Independent - Continence Bowel Pattern: Normal for Patient Bladder Pattern: Normal Meds/Allergies - Allergies Allergies Allergy/AdvReac Type Severity Reaction Status Date / Time onion Allergy Intermediate NAUSEA Verified 01/30/16 14:13 - Active Medications Current Medications Acetaminophen (Tylenol 325mg) 650 mg PO Q4H PRN PRN Reason: MILD PAIN Ascorbic Acid (Vitamin C) 1,000 mg PO BID [facility] Last Admin: 10/23/17 22:21 Dose: 1,000 mg Atorvastatin Calcium (Lipitor) 20 mg PO QHS [facility] Last Admin: 10/23/17 22:20 Dose: 20 mg Bumetanide (Bumex) 2 mg PO BIDDIUR [facility] Last Admin: 10/23/17 17:03 Dose: 2 mg Clotrimazole (Lotrisone) 0.5 gm TOP BID PRN PRN Reason: RASH Ferrous Sulfate (Iron) 325 mg PO WMEALS [facility] Last Admin: 10/23/17 17:02 Dose: 325 mg Insulin Detemir (Levemir Flextouch) 6 unit SQ QHS [facility] Last Admin: 10/23/17 22:21 Dose: 6 unit Levothyroxine Sodium (Synthroid) 125 mcg PO DAILYTHY [facility] Last Admin: 10/24/17 07:02 Dose: 125 mcg Magnesium Oxide (Mag Ox) 400 mg PO DAILY [facility] Last Admin: 10/23/17 09:22 Dose: 400 mg Metoprolol Succinate (Toprol Xl) 12.5 mg PO DAILY [facility] Last Admin: 10/23/17 09:23 Dose: 12.5 mg Multivitamins/Minerals (Centrum) 1 tab PO DAILY [facility] Last Admin: 10/23/17 09:22 Dose: 1 tab Oxycodone/Acetaminophen (Percocet 10-325 Mg Tablet) 1 each PO Q4H PRN PRN Reason: Pain - General Last Admin: 10/19/17 22:17 Dose: 1 each Oxycodone/Acetaminophen (Percocet 10-325 Mg Tablet) 2 each PO Q4H PRN PRN Reason: Pain - General Last Admin: 10/22/17 22:38 Dose: 2 each Polyethylene Glycol (Miralax) 17 gm PO QHS PRN PRN Reason: CONSTIPATION Potassium Chloride (Klor-Con) 40 meq PO BIDWM [facility] Last Admin: 10/23/17 17:03 Dose: 40 meq Ranitidine HCl (Zantac) 150 mg PO QHS [facility] Last Admin: 10/23/17 22:29 Dose: 150 mg Senna/Docusate Sodium (Senna Plus) 2 each PO QHS [facility] Last Admin: 10/23/17 22:21 Dose: 2 each Tamsulosin HCl (Flomax) 0.4 mg PO DAILY [facility] Last Admin: 10/23/17 09:22 Dose: 0.4 mg Vitamin D (Vitamin D3) 5,000 unit PO DAILY [facility] Last Admin: 10/23/17 09:23 Dose: 5,000 unit Warfarin Sodium (Coumadin) 3 mg PO [id number] [facility] Last Admin: 10/23/17 16:21 Dose: 3 mg Objective - Vital Signs Vital Signs: Vital Signs - Last 24 Hrs Temp Pulse Pulse Resp BP Pulse Ox 10/23/17 22:15 85 96 10/23/17 20:00 97.3 F L 80 18 101/61 95 10/23/17 09:41 73 17 95 10/23/17 09:39 72 17 95 - General General Appearance: Alert, Oriented x3, Cooperative, No acute distress - Head Head exam: Normal inspection - Eye Eye exam: Normal appearance, PERRL Pupils: Normal accommodation - ENT ENT exam: Normal exam, Mucous membranes moist, Normal external ear exam, Normal orophraynx, TM's normal bilaterally Ear exam: Normal external inspection. negative: External canal tenderness Nasal Exam: Normal inspection. negative: Discharge, Sinus tenderness Mouth exam: Normal external inspection, Tongue normal Teeth exam: Normal inspection. negative: Dental caries Throat exam: Normal inspection. negative: Tonsillar erythema, Tonsillar exudate - Neck Neck exam: Normal inspection, Full ROM. negative: Tenderness - Respiratory Respiratory exam: Normal lung sounds bilaterally. negative: Respiratory distress - Cardiovascular Cardiovascular Exam: Regular rate, Irregular rhythm (chronic afib). negative: Normal rhythm, Normal heart sounds Peripheral Pulses: 0: Dorsalis Pedis (R), Dorsalis Pedis (L), 2+: Radial (R), Radial (L) - GI/Abdominal GI/Abdominal exam: Soft, Normal bowel sounds. negative: Tenderness - Extremities Extremities exam: Full ROM, Pedal edema (1+ bilaterally). negative: Calf tenderness, Tenderness - Neurological Neurological exam: Abnormal gait (walks with two canes), Alert, Oriented X3, Reflexes normal H&P Results - Labs Result Diagrams: 10/21/17 08:05 10/24/17 08:30 Labs Last 24 Hours: Laboratory Results - last 24 hr 10/23/17 10/23/17 06:31 07:04 Sodium Not Reportable Potassium Not Reportable Chloride Not Reportable Carbon Dioxide Not Reportable Anion Gap Not Reportable BUN Not Reportable Creatinine Not Reportable Estimated GFR Not Reportable Random Glucose Calcium Not Reportable Magnesium Not Reportable Total Bilirubin Not Reportable AST Not Reportable ALT Not Reportable Alkaline Phosphatase Not Reportable Total Protein Not Reportable Albumin Not Reportable Globulin Not Reportable Albumin/Globulin Ratio Not Reportable Discharge Potential - Discharge Needs Community Services Used Prior to Admission: Home Delivered Meals, Home Health Nurse, Occupational Therapy, Physical Therapy Patient Discharge Plan Description: Return Home, Visiting Nurse Community Services Needed at Discharge: Occupational Therapy, Physical Therapy Discharge Needs Comment: Followed by [facility] - Swing Bed Certification Initial Certification Due: 10/16/17 14 Day Re-Cert Due: 10/30/17 44 Day Re-Cert Due: 11/29/17 74 Day Re-Cert Due: 12/29/17 - Detailed Diagnosis and Plan (1) Physical deconditioning Current Visit: No Status: Acute Base Code: R53.81 - OTHER MALAISE Comment : 10/24/17- Improving. WAs able to ambulate with PT yesterday using two canes. pt has gait and stance difficulty, primarly as a result of spine and foot problems. - PT/OT/ambulation with walker and assist. Fall precuations. (2) CHF (congestive heart failure) Current Visit: No Status: Chronic Qualifiers: Congestive heart failure type: diastolic Congestive heart failure chronicity: chronic Qualified Code(s): I50.32 - Chronic diastolic (congestive ) heart failure Base Code: I50.9 - HEART FAILURE, UNSPECIFIED Comment: 10/24/17- stable. Scale on the med/surg floor was off by 10 pounds. Patient's goal dry weight is 225lb per cardiology. He had his diuretics held for several days due to renal insufficiency which improved. He did go up to 229lb from 221lb at admission so bumex 2mg po bid was restarted. he also received 3 doses of metalazone. renal function continued to improve and he is not currenlty having symptoms of overload. Weight today was down to 225lb. 2D echo evidence of heart failure with preserved EF. - pt to cont on Lipitor 20mg, Bumex 2mg BID -transition his metoprolol to 12.5mg XL daily. hold for systolic pressure <100 (3) Diuretic-induced hypokalemia Current Visit: Yes Status: Acute Base Code: E87.6 - HYPOKALEMIA; T50.2X5A - ADVRS EFF OF CRBNC-ANHYDR INHIBTR, BENZO/OTH DIURETC, INIT Comment: 10/24/17- improved. BUN/CT 47/1.8 potassium up to 3.1 -increase potassium supplementation to 40mg po bidwm since bumex has been increased to 2mg po bid -repeat labs tomorrow
[2017-10-24] MEDS: FERROUS SULFATE 325 MG TAB PO SCH ×3 (08:43→16:56)
[2017-10-24] MEDS: POTASSIUM CHLORIDE 20 MEQ TABLET PO SCH ×2 (08:43→16:56)
[2017-10-24 08:47] LABS: INR 2.49; PROTHROMBIN TIME (PATIENT) 27.1 SECONDS (9.5-12.1)
[2017-10-24 09:04] LABS: ALB/GLOB RATIO 1.6 (1.1-1.8); ALBUMIN 4.2 g/dL (4.0-5.0); BILIRUBIN,TOTAL 0.5 mg/dL (0.2-1.0); CREATININE 1.8 mg/dL (0.7-1.2); TOTAL PROTEIN 6.9 g/dL (6.6-8.7)
[2017-10-24] MEDS: BREO (FLUTICASONE/VILANTEROL) 200MCG/25MCG INHALER INH SCH (10:00)
[2017-10-24] MEDS: BUMETANIDE 1 MG TABLET PO SCH ×2 (10:43→16:56)
[2017-10-24] MEDS: MULTIVITAMINS/MINERALS TABLET PO SCH (10:44)
[2017-10-24] MEDS: ASCORBIC ACID 500 MG TAB PO SCH ×2 (10:44→23:00)
[2017-10-24] MEDS: METOPROLOL SUCC 25 MG TAB.ER PO SCH (10:45)
[2017-10-24] MEDS: CHOLECALCIFEROL 1,000 UNIT TABLET PO SCH (10:45)
[2017-10-24] MEDS: TAMSULOSIN HCL 0.4 MG CAP.ER.24H PO SCH (10:46)
[2017-10-24] MEDS: MAGNESIUM OXIDE 400 MG TABLET PO SCH (10:46)
--- NOTE | 2017-10-24 12:14 | Physical Therapy Tx Note ---
Physical Therapy Tx Note - Treatment Note Tolerated: Good Total Time Spent With Patient: 30 Physical Therapy Tx Note: Detail (The patient was up in chair when PT arrived. The patient ambulated with 2 canes with CG of 1 for safety a distance of 30 feet x 1. MTT to both upper trapezius was completed. LE strengthening exercises : LAQ, hip marching, hip adductor squeezes blue band hip abduction, blue band hamstring curls all until fatigued. The patient requested stair climbing this pm prior to visit to home on [address].) Physical Therapy Problem List: Detail (1) Cervical and L kary region pain 2) Decreased LE strength 3) Decreased ability to complete sustained physical activity 4) Non ambulatory on stairs) Physical Therapy Goals: 1) The patient will ambulate independently on stairs with use of assistive device. 2) Increase LE strength 1/3 muscle grade to improve stability of gait. 3) The patient will ambulate community distances( 350 feet) with appropriate assistive device. 4) Assess bed mobility. 5) The patient will be independent with pain management techniques. Physical Therapy Plan: PT M-F 1 to 2 times a day for gait training, transfer training, LE strengthening exercises, manual therapy techniques as needed to manage pain complaints.
--- NOTE | 2017-10-24 14:51 | Physical Therapy Tx Note ---
Physical Therapy Tx Note - Treatment Note Tolerated: Good Total Time Spent With Patient: 40 Physical Therapy Tx Note: Detail (Patient states no new complaints. Patient was sitting in chair upon POULTRY VACCINATOR arrival. Patient transferred sit to and from stand independently. Patient ambulated 100 feet with two straight canes with stabilizers SBA x1. Patient transferred sit to and from stand independently. Patient performed Nustep L4 x10 minutes. Patient transferred sit to and from stand independently. Patient ambulated 40 feet with two straight canes with stabilizers SBA x1. Patient performed the following shoulder stretching seated with pulleys x10 reps each: shoulder flexion, shoulder abduction, and shoulder horizontal abduction/adduction. Patient transferred sit to and from stand independently. Patient ambulated 50 feet with two straight canes with stabilizers. Patient ascended and descended 5 steps with using two stairway railings SBA x1. Patient performed the following exercises x15-20 reps each: LAQ, seated hip abduction with green theraband, seated adductor squeezes, seated heel raises, and seated toe raises. Patient transferred sit to and from stand x2 independently. Patient was left seated in chair with MHP on neck x20 minutes and call light within reach.) Physical Therapy Problem List: Detail (1) Cervical and L kary region pain 2) Decreased LE strength 3) Decreased ability to complete sustained physical activity 4) Non ambulatory on stairs) Physical Therapy Goals: 1) The patient will ambulate independently on stairs with use of assistive device. 2) Increase LE strength 1/3 muscle grade to improve stability of gait. 3) The patient will ambulate community distances( 350 feet) with appropriate assistive device. 4) Assess bed mobility. 5) The patient will be independent with pain management techniques. Prognosis: Good Physical Therapy Plan: PT M-F 1 to 2 times a day for gait training, transfer training, LE strengthening exercises, manual therapy techniques as needed to manage pain complaints.
[2017-10-24] MEDS: WARFARIN 1 MG TABLET PO SCH (16:55)
[2017-10-24] MEDS: SENNOSIDES/DOCUSATE SODIUM UD CAPSULE PO SCH (23:00)
[2017-10-24] MEDS: RANITIDINE HCL 150 MG TABLET PO SCH (23:00)
[2017-10-24] MEDS: ATORVASTATIN 20 MG TABLET PO SCH (23:00)
[2017-10-24] MEDS: LEVEMIR FLEXTOUCH 100 UNIT/ML INSULIN PEN SQ SCH (23:03)
[2017-10-25] MEDS: LEVOTHYROXINE SODIUM 125 MCG TABLET PO SCH (07:06)
[2017-10-25] MEDS: FERROUS SULFATE 325 MG TAB PO SCH ×3 (08:12→17:34)
[2017-10-25] MEDS: POTASSIUM CHLORIDE 20 MEQ TABLET PO SCH ×2 (08:12→17:34)
[2017-10-25] MEDS: BREO (FLUTICASONE/VILANTEROL) 200MCG/25MCG INHALER INH SCH (09:19)
[2017-10-25 09:57] LABS: BILIRUBIN,TOTAL 0.5 mg/dL (0.2-1.0); CREATININE 1.8 mg/dL (0.7-1.2)
[2017-10-25 09:58] LABS: TOTAL PROTEIN 6.8 g/dL (6.6-8.7)
[2017-10-25 10:03] LABS: ALB/GLOB RATIO 1.5 (1.1-1.8); ALBUMIN 4.1 g/dL (4.0-5.0)
[2017-10-25] MEDS: BUMETANIDE 1 MG TABLET PO SCH ×2 (10:21→16:18)
[2017-10-25] MEDS: MULTIVITAMINS/MINERALS TABLET PO SCH (10:21)
[2017-10-25] MEDS: ASCORBIC ACID 500 MG TAB PO SCH ×2 (10:22→23:14)
[2017-10-25] MEDS: TAMSULOSIN HCL 0.4 MG CAP.ER.24H PO SCH (10:22)
[2017-10-25] MEDS: MAGNESIUM OXIDE 400 MG TABLET PO SCH (10:22)
[2017-10-25] MEDS: CHOLECALCIFEROL 1,000 UNIT TABLET PO SCH (10:23)
[2017-10-25] MEDS: METOPROLOL SUCC 25 MG TAB.ER PO SCH (10:24)
[2017-10-25] MEDS: WARFARIN 1 MG TABLET PO SCH (16:18)
[2017-10-25] MEDS: OXYCODONE/APAP 10MG-325MG TABLET PO PRN (18:37)
[2017-10-25] MEDS: LEVEMIR FLEXTOUCH 100 UNIT/ML INSULIN PEN SQ SCH (23:12)
[2017-10-25] MEDS: RANITIDINE HCL 150 MG TABLET PO SCH (23:14)
[2017-10-25] MEDS: ATORVASTATIN 20 MG TABLET PO SCH (23:14)
[2017-10-25] MEDS: SENNOSIDES/DOCUSATE SODIUM UD CAPSULE PO SCH (23:14)
[2017-10-26] MEDS: LEVOTHYROXINE SODIUM 125 MCG TABLET PO SCH (07:13)
[2017-10-26] MEDS: FERROUS SULFATE 325 MG TAB PO SCH ×3 (08:14→17:26)
[2017-10-26] MEDS: POTASSIUM CHLORIDE 20 MEQ TABLET PO SCH ×2 (08:14→17:26)
[2017-10-26] MEDS: BUMETANIDE 1 MG TABLET PO SCH ×2 (09:57→16:17)
[2017-10-26] MEDS: MULTIVITAMINS/MINERALS TABLET PO SCH (09:58)
[2017-10-26] MEDS: TAMSULOSIN HCL 0.4 MG CAP.ER.24H PO SCH (10:00)
[2017-10-26] MEDS: MAGNESIUM OXIDE 400 MG TABLET PO SCH (10:00)
[2017-10-26] MEDS: METOPROLOL SUCC 25 MG TAB.ER PO SCH (10:01)
[2017-10-26] MEDS: ASCORBIC ACID 500 MG TAB PO SCH ×2 (10:01→22:44)
[2017-10-26] MEDS: CHOLECALCIFEROL 1,000 UNIT TABLET PO SCH (10:02)
[2017-10-26] MEDS: BREO (FLUTICASONE/VILANTEROL) 200MCG/25MCG INHALER INH SCH (10:46)
[2017-10-26] MEDS: WARFARIN 1 MG TABLET PO SCH (16:17)
[2017-10-26] MEDS: MAGNESIUM HYDROXIDE 30 ML UDC PO PRN (16:18)
[2017-10-26] MEDS: ATORVASTATIN 20 MG TABLET PO SCH (22:43)
[2017-10-26] MEDS: RANITIDINE HCL 150 MG TABLET PO SCH (22:44)
[2017-10-26] MEDS: SENNOSIDES/DOCUSATE SODIUM UD CAPSULE PO SCH (22:44)
[2017-10-26] MEDS: LEVEMIR FLEXTOUCH 100 UNIT/ML INSULIN PEN SQ SCH (22:44)
[2017-10-27] MEDS: LEVOTHYROXINE SODIUM 125 MCG TABLET PO SCH (06:23)
[2017-10-27 08:22] LABS: INR 3.02
[2017-10-27] MEDS: POTASSIUM CHLORIDE 20 MEQ TABLET PO SCH ×2 (08:40→16:40)
[2017-10-27] MEDS: FERROUS SULFATE 325 MG TAB PO SCH ×3 (08:40→17:59)
[2017-10-27] MEDS: BREO (FLUTICASONE/VILANTEROL) 200MCG/25MCG INHALER INH SCH (09:55)
[2017-10-27] MEDS: BUMETANIDE 1 MG TABLET PO SCH ×2 (11:21→16:40)
[2017-10-27] MEDS: TAMSULOSIN HCL 0.4 MG CAP.ER.24H PO SCH (11:21)
[2017-10-27] MEDS: CHOLECALCIFEROL 1,000 UNIT TABLET PO SCH (11:22)
[2017-10-27] MEDS: ASCORBIC ACID 500 MG TAB PO SCH ×2 (11:22→22:47)
[2017-10-27] MEDS: MULTIVITAMINS/MINERALS TABLET PO SCH (11:22)
[2017-10-27] MEDS: MAGNESIUM OXIDE 400 MG TABLET PO SCH (11:24)
[2017-10-27] MEDS: METOPROLOL SUCC 25 MG TAB.ER PO SCH (11:24)
[2017-10-27] MEDS: MAGNESIUM HYDROXIDE 30 ML UDC PO PRN (16:40)
[2017-10-27] MEDS: WARFARIN 1 MG TABLET PO SCH (16:41)
[2017-10-27] MEDS: SENNOSIDES/DOCUSATE SODIUM UD CAPSULE PO SCH (22:47)
[2017-10-27] MEDS: ATORVASTATIN 20 MG TABLET PO SCH (22:47)
[2017-10-27] MEDS: LEVEMIR FLEXTOUCH 100 UNIT/ML INSULIN PEN SQ SCH (22:47)
[2017-10-27] MEDS: RANITIDINE HCL 150 MG TABLET PO SCH (22:47)
[2017-10-28] MEDS: LEVOTHYROXINE SODIUM 125 MCG TABLET PO SCH (07:21)
[2017-10-28] MEDS: FERROUS SULFATE 325 MG TAB PO SCH ×3 (08:05→17:31)
[2017-10-28] MEDS: POTASSIUM CHLORIDE 20 MEQ TABLET PO SCH ×2 (08:05→17:31)
[2017-10-28] MEDS ORDERED: METOLAZONE 2.5 MG TABLET PO ONE (09:45)
[2017-10-28] MEDS: BREO (FLUTICASONE/VILANTEROL) 200MCG/25MCG INHALER INH SCH (09:45)
[2017-10-28] MEDS: TAMSULOSIN HCL 0.4 MG CAP.ER.24H PO SCH (10:08)
[2017-10-28] MEDS: ASCORBIC ACID 500 MG TAB PO SCH ×2 (10:08→22:29)
[2017-10-28] MEDS: CHOLECALCIFEROL 1,000 UNIT TABLET PO SCH (10:09)
[2017-10-28] MEDS: MAGNESIUM OXIDE 400 MG TABLET PO SCH (10:10)
[2017-10-28] MEDS: METOPROLOL SUCC 25 MG TAB.ER PO SCH (10:10)
[2017-10-28] MEDS: MULTIVITAMINS/MINERALS TABLET PO SCH (10:10)
[2017-10-28 10:23] LABS: CREATININE 1.8 mg/dL (0.7-1.2)
[2017-10-28] MEDS: BUMETANIDE 1 MG TABLET PO SCH ×2 (10:45→17:30)
--- NOTE | 2017-10-28 13:56 | Physical Therapy Tx Note ---
Physical Therapy Tx Note - Treatment Note Tolerated: Good Total Time Spent With Patient: 35 Physical Therapy Tx Note: Detail (Pt was seated in recliner and eager to start therapy per pt. report. Pt completed ex's of LAQ x 15, HS curls with green theraband, seated bilateral hip abduction blue theraband, seated marching, standing marching, standing hip ext., bilateral shoulder abduction red theraband , bicep curls with red theraband, bilateral shoulder external rotation red theraband. All ex's were completed 15- 20 reps bilaterally. Gait training with two canes with stabilizers on tips with contact gaurd assist x140 ft. with one rest period at half way point x 2 min. Pt was a bit fatigued after activity but states needed to be done due to having to use the bathroom soon. Pt did well with gait and ex's increasing resistance and reps with ex's. Pt was returned to recliner and given nurses call button and bed side table.) Physical Therapy Problem List: Detail (1) Cervical and L kary region pain 2) Decreased LE strength 3) Decreased ability to complete sustained physical activity 4) Non ambulatory on stairs) Physical Therapy Goals: 1) The patient will ambulate independently on stairs with use of assistive device. 2) Increase LE strength 1/3 muscle grade to improve stability of gait. 3) The patient will ambulate community distances( 350 feet) with appropriate assistive device. 4) Assess bed mobility. 5) The patient will be independent with pain management techniques. Prognosis: Good Physical Therapy Plan: PT M-F 1 to 2 times a day for gait training, transfer training, LE strengthening exercises, manual therapy techniques as needed to manage pain complaints.
--- NOTE | 2017-10-28 14:02 | Occupational Therapy Tx Note ---
Occupational Therapy Tx Note - Treatment Note Tolerated: Good Total Time Spent With Patient: 50 (ther activity) Occupational Therapy Treatment Note: Detail (S: Pt up in chair, ready for therapy. O: Sit to stand and amb 150 feet with 2 canes. Propelled self in wheelchair approx. 50 feet. Pt transported to rehab gym via wheelchair the remaining distance. Pt completed ther activity as follows: doroteo passive pullleys x 5 min for shoulder flexion, abduction and horiz ab/adduction; overhead reaching with resisted pulleys doroteo with manual assist for right shoulder due to weakness; red putty for doroteo elastic attacher coverstitch, pinch and rolling - provided theraputty for HEP. Pt amb approx 300 feet with 2 canes, back to room. Stand to sit Indly. A: Pt reports doroteo shoulder fatigue right greater than left. Improved endurance with mobility.) Occupational Therapy Problem List: Detail (1) BUE weakness, pain and impaired shd AROM 2) decreased endurance/activity tolerance 3) decreased safety and indepence in self-care ADL's) Occupational Therapy Goals: 1) Perform shower evaluation to determine safety and level of independence. 2) Maximize independence and safety in ADL's. 3) Increase pt's activity tolerance/endurance so pt. will be able to perform typical ADL routine. 4) Improve BUE strength to MMT 4/5. Prognosis: Good Occupational Therapy Plan: Provide in-pt OT services 2-4x/week M- during typical rehab business hours to maximize safety and independence with ADL's, improve BUE strength to perform functional activities, and improve activity tolerance so pt. can perform typical ADL routine.
[2017-10-28] MEDS: OXYCODONE/APAP 10MG-325MG TABLET PO PRN (14:06)
[2017-10-28] MEDS: WARFARIN 1 MG TABLET PO SCH (17:30)
[2017-10-28] MEDS: ATORVASTATIN 20 MG TABLET PO SCH (22:28)
[2017-10-28] MEDS: SENNOSIDES/DOCUSATE SODIUM UD CAPSULE PO SCH (22:29)
[2017-10-28] MEDS: RANITIDINE HCL 150 MG TABLET PO SCH (22:29)
[2017-10-28] MEDS: LEVEMIR FLEXTOUCH 100 UNIT/ML INSULIN PEN SQ SCH (22:30)
[2017-10-29] MEDS: LEVOTHYROXINE SODIUM 125 MCG TABLET PO SCH (07:21)
[2017-10-29] MEDS: FERROUS SULFATE 325 MG TAB PO SCH ×3 (08:12→17:37)
[2017-10-29] MEDS: POTASSIUM CHLORIDE 20 MEQ TABLET PO SCH ×2 (08:12→17:36)
[2017-10-29] MEDS: BREO (FLUTICASONE/VILANTEROL) 200MCG/25MCG INHALER INH SCH (09:12)
[2017-10-29] MEDS: CHOLECALCIFEROL 1,000 UNIT TABLET PO SCH (10:45)
[2017-10-29] MEDS: MAGNESIUM OXIDE 400 MG TABLET PO SCH (10:46)
[2017-10-29] MEDS: BUMETANIDE 1 MG TABLET PO SCH ×2 (10:46→17:36)
[2017-10-29] MEDS: ASCORBIC ACID 500 MG TAB PO SCH ×2 (10:46→22:15)
[2017-10-29] MEDS: MULTIVITAMINS/MINERALS TABLET PO SCH (10:46)
[2017-10-29] MEDS: TAMSULOSIN HCL 0.4 MG CAP.ER.24H PO SCH (10:47)
[2017-10-29] MEDS: METOPROLOL SUCC 25 MG TAB.ER PO SCH (10:50)
--- NOTE | 2017-10-29 11:04 | Physical Therapy Tx Note ---
Physical Therapy Tx Note - Treatment Note Tolerated: Good Total Time Spent With Patient: 30 Physical Therapy Tx Note: Detail (The patient had complaints of R groin pain . Patient stated his cervical pain was not as bad. The patient ambulated with 2 canes independently 150 feet x 1. MTT to both upper traps . LE strengthening exercises including : hip adductor squeezes, LAQ, hip marching, blue band hip abduction and hamstring curls all until fatigued.) Physical Therapy Problem List: Detail (1) Cervical and L kary region pain 2) Decreased LE strength 3) Decreased ability to complete sustained physical activity 4) Non ambulatory on stairs) Physical Therapy Goals: 1) The patient will ambulate independently on stairs with use of assistive device. 2) Increase LE strength 1/3 muscle grade to improve stability of gait. 3) The patient will ambulate community distances( 350 feet) with appropriate assistive device. 4) Assess bed mobility. 5) The patient will be independent with pain management techniques. Physical Therapy Plan: PT M-F 1 to 2 times a day for gait training, transfer training, LE strengthening exercises, manual therapy techniques as needed to manage pain complaints.
--- NOTE | 2017-10-29 14:05 | Occupational Therapy Tx Note ---
Occupational Therapy Tx Note - Treatment Note Tolerated: Good Total Time Spent With Patient: 50 (therex) Occupational Therapy Treatment Note: Detail (S: Pt reports he was sore after treatment yesterday but he feels like it worked his arms. O: Sit to stand and amb from room to rehab gym with 2 canes Indly. Passive pulleys x 5 min for ozzy UE shoulder flexion, abduction and horiz ab/adduction. Ozzy UE overhead reaching and resistive pinch with clothespins Indly. Hand helper ozzy 40# x 20 reps each hand. Green therabar for supination and pronation x 20 reps each. Green rubberband for ozzy finger extension x 10 reps each hand. Transferred to wheelchair and taken back to room per therapist. Transferred to chair Indly. A : Improved ozzy shoulder motion today, strength improving with overhead reaching right > left.) Occupational Therapy Problem List: Detail (1) BUE weakness, pain and impaired shd AROM 2) decreased endurance/activity tolerance 3) decreased safety and indepence in self-care ADL's) Occupational Therapy Goals: 1) Perform shower evaluation to determine safety and level of independence. 2) Maximize independence and safety in ADL's. 3) Increase pt's activity tolerance/endurance so pt. will be able to perform typical ADL routine. 4) Improve BUE strength to MMT 4/5. Prognosis: Good Occupational Therapy Plan: Provide in-pt OT services 2-4x/week M-F during typical rehab business hours to maximize safety and independence with ADL's, improve BUE strength to perform functional activities, and improve activity tolerance so pt. can perform typical ADL routine.
[2017-10-29] MEDS: WARFARIN 1 MG TABLET PO SCH (17:36)
[2017-10-29] MEDS: RANITIDINE HCL 150 MG TABLET PO SCH (22:15)
[2017-10-29] MEDS: ATORVASTATIN 20 MG TABLET PO SCH (22:15)
[2017-10-29] MEDS: SENNOSIDES/DOCUSATE SODIUM UD CAPSULE PO SCH (22:15)
[2017-10-29] MEDS: LEVEMIR FLEXTOUCH 100 UNIT/ML INSULIN PEN SQ SCH (22:15)
[2017-10-30] MEDS: LEVOTHYROXINE SODIUM 125 MCG TABLET PO SCH (07:25)
[2017-10-30] MEDS: FERROUS SULFATE 325 MG TAB PO SCH ×3 (08:04→17:43)
[2017-10-30] MEDS: POTASSIUM CHLORIDE 20 MEQ TABLET PO SCH ×2 (08:04→17:43)
[2017-10-30 09:09] LABS: INR 3.32; PROTHROMBIN TIME (PATIENT) 36.3 SECONDS (9.5-12.1)
[2017-10-30] MEDS: BREO (FLUTICASONE/VILANTEROL) 200MCG/25MCG INHALER INH SCH (09:58)
[2017-10-30] MEDS: BUMETANIDE 1 MG TABLET PO SCH ×2 (10:25→16:54)
[2017-10-30] MEDS: TAMSULOSIN HCL 0.4 MG CAP.ER.24H PO SCH (10:26)
[2017-10-30] MEDS: MAGNESIUM OXIDE 400 MG TABLET PO SCH (10:26)
[2017-10-30] MEDS: MULTIVITAMINS/MINERALS TABLET PO SCH (10:26)
[2017-10-30] MEDS: ASCORBIC ACID 500 MG TAB PO SCH ×2 (10:27→22:09)
[2017-10-30] MEDS: METOPROLOL SUCC 25 MG TAB.ER PO SCH (10:27)
[2017-10-30] MEDS: CHOLECALCIFEROL 1,000 UNIT TABLET PO SCH (10:28)
--- NOTE | 2017-10-30 11:32 | Physical Therapy Tx Note ---
Physical Therapy Tx Note - Treatment Note Tolerated: Good (Pt. tolerated tx with no increase in pain. Pt. tolerated exercise progression regarding extra repetitions with therapy band for LE strengthening without complications.) Total Time Spent With Patient: 50 Physical Therapy Tx Note: Detail (Pt. took pain medications upon PT arrival and was seated in chair. Pt. independently ambulated 226 feet with B single point cane. Pt. performed the following exercises while seated in chair: B hip adduction with ball, 50 repetitions; LAQ with blue therapy band 19 repetitions each; bilateral hip abduction 15 repetitions each with blue band; B hip flexion without therapy band 10 repetitions each; B knee flexion with blue therapy band 20 repetitions each; plantarflexion with knee extended and blue therapy band 20 repetitions each; dorsiflexion with knee extended 20 repetitions each with blue therapy band; hip internal rotation with blue therapy band 8 repetitions each; bilateral shoulder external rotation in neutral with red therapy band, 10 repetitions. Pt. declined bed mobility assessment.) Physical Therapy Problem List: Detail (1) Cervical and L kary region pain 2) Decreased LE strength 3) Decreased ability to complete sustained physical activity 4) Non ambulatory on stairs) Physical Therapy Goals: 1) The patient will ambulate independently on stairs with use of assistive device. 2) Increase LE strength 1/3 muscle grade to improve stability of gait. 3) The patient will ambulate community distances( 350 feet) with appropriate assistive device. 4) Assess bed mobility. 5) The patient will be independent with pain management techniques. Prognosis: Good (Pt. exhibits functional LE strength needed for gait and ambulation over level surfaces, however, he does report hip pain at the right side with basic transfers and hip marches that my limit his independence with bed mobility. Pt. reported no increase in pain from start to finish of tx, he was left seated upright with call light available.) Physical Therapy Plan: PT M-F 1 to 2 times a day for LE strengthening, bed mobility and transfer training, and manual therapy techniques to manage pain.
--- NOTE | 2017-10-30 14:16 | Physical Therapy Tx Note ---
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 Patient complains of right groin pain. Patient transferred sit to and from stand independently. Patient ambulated 140 feet with two single point canes SBA x1. Patient transferred sit to and from stand independently. Patient performed Nustep L4 x10 minutes. Patient transferred sit to and from stand independently. Patient ambulated 68 feet with two single point canes SBA x1. Patient performed the pulleys shoulder flexion, abduction, and horizontal abduction/adduction x25-30 reps each. Patient transferred sit to and from stand independently. Patient ambulated 5 feet with two single point canes SBA x1. Patient performed clothes pins shoulder flexion and extension with bilateral shoulders. Patient transferred sit to and from stand independently. Patient ambulated 287 feet with two single point canes SBA x1. Patient tolerated treatment well. Patient displays decreased strength and endurance with clothes pins. Patient displays fatigue after treatment. Patient was left seated in chair with call light within reach.) Physical Therapy Problem List: Detail (1) Cervical and L kary region pain 2) Decreased LE strength 3) Decreased ability to complete sustained physical activity 4) Non ambulatory on stairs) Physical Therapy Goals: 1) The patient will ambulate independently on stairs with use of assistive device. 2) Increase LE strength 1/3 muscle grade to improve stability of gait. 3) The patient will ambulate community distances( 350 feet) with appropriate assistive device. 4) Assess bed mobility. 5) The patient will be independent with pain management techniques. Prognosis: Good Physical Therapy Plan: PT M-F 1 to 2 times a day for LE strengthening, bed mobility and transfer training, and manual therapy techniques to manage pain.
[2017-10-30] MEDS ORDERED: METOLAZONE 2.5 MG TABLET PO ONE (15:30)
[2017-10-30] MEDS: WARFARIN 1 MG TABLET PO SCH (16:54)
[2017-10-30] MEDS: RANITIDINE HCL 150 MG TABLET PO SCH (22:09)
[2017-10-30] MEDS: ATORVASTATIN 20 MG TABLET PO SCH (22:09)
[2017-10-30] MEDS: LEVEMIR FLEXTOUCH 100 UNIT/ML INSULIN PEN SQ SCH (22:10)
[2017-10-30] MEDS: SENNOSIDES/DOCUSATE SODIUM UD CAPSULE PO SCH (22:14)
[2017-10-31] MEDS: LEVOTHYROXINE SODIUM 125 MCG TABLET PO SCH (06:39)
[2017-10-31] MEDS: CHOLECALCIFEROL 1,000 UNIT TABLET PO SCH ×2 (07:54→11:48)
[2017-10-31] MEDS: ASCORBIC ACID 500 MG TAB PO SCH ×3 (07:54→21:44)
[2017-10-31] MEDS: POTASSIUM CHLORIDE 20 MEQ TABLET PO SCH ×2 (07:54→16:56)
[2017-10-31] MEDS: MAGNESIUM OXIDE 400 MG TABLET PO SCH ×2 (07:54→11:48)
[2017-10-31] MEDS: FERROUS SULFATE 325 MG TAB PO SCH ×3 (07:54→16:56)
[2017-10-31] MEDS: TAMSULOSIN HCL 0.4 MG CAP.ER.24H PO SCH ×2 (07:55→11:48)
[2017-10-31] MEDS: METOPROLOL SUCC 25 MG TAB.ER PO SCH ×2 (07:55→11:48)
[2017-10-31] MEDS: MULTIVITAMINS/MINERALS TABLET PO SCH (07:55)
[2017-10-31] MEDS: METOLAZONE 2.5 MG TABLET PO SCH (09:08)
[2017-10-31] MEDS: BREO (FLUTICASONE/VILANTEROL) 200MCG/25MCG INHALER INH SCH (09:39)
[2017-10-31] MEDS: BUMETANIDE 1 MG TABLET PO SCH ×2 (09:55→16:56)
--- NOTE | 2017-10-31 11:16 | Physical Therapy Tx Note ---
Physical Therapy Tx Note - Treatment Note Tolerated: Good Total Time Spent With Patient: 40 Physical Therapy Tx Note: Detail (The patient was up in chair when PT arrived. The patient ambulated with 2 canes 100 feet with supervision for safety , shortness of breath was noted after ambulating and increased complaints of cervical and R groin pain. The patient completed UE exercises including: pullies shoulder flexion, abduction and horizontal abd/add x 25-30 reps, clothespins with both UE's. Manual Therapy techniques to Both upper traps, followed by MHP. Patient had increased pain today.) Physical Therapy Problem List: Detail (1) Cervical and L kary region pain 2) Decreased LE strength 3) Decreased ability to complete sustained physical activity 4) Non ambulatory on stairs) Physical Therapy Goals: 1) The patient will ambulate independently on stairs with use of assistive device. 2) Increase LE strength 1/3 muscle grade to improve stability of gait. 3) The patient will ambulate community distances( 350 feet) with appropriate assistive device. 4) Assess bed mobility. 5) The patient will be independent with pain management techniques. Physical Therapy Plan: PT M-F 1 to 2 times a day for LE strengthening, bed mobility and transfer training, and manual therapy techniques to manage pain.
--- NOTE | 2017-10-31 13:43 | Physical Therapy Tx Note ---
Physical Therapy Tx Note - Treatment Note Tolerated: Fair Total Time Spent With Patient: 30 Physical Therapy Tx Note: Detail (The patient was up in chair when PT arrived. The patient requested to stay on the nursing floor due to " having to run to the bathroom." The patient ambulated with 2 canes a distance of 140 feet x 1 with supervision for safety. The patient exhibited shortness of breath. The patient completed LE strengthening exercises with black band :hip abduction 25 reps x 1, hamstring curls until fatigued, LAQ, hip marching, hip adductor squeezes until fatigued. The patient experienced increased groin pain.) Physical Therapy Problem List: Detail (1) Cervical and L kary region pain 2) Decreased LE strength 3) Decreased ability to complete sustained physical activity 4) Non ambulatory on stairs) Physical Therapy Goals: 1) The patient will ambulate independently on stairs with use of assistive device. 2) Increase LE strength 1/3 muscle grade to improve stability of gait. 3) The patient will ambulate community distances( 350 feet) with appropriate assistive device. 4) Assess bed mobility. 5) The patient will be independent with pain management techniques. Physical Therapy Plan: PT M-F 1 to 2 times a day for LE strengthening, bed mobility and transfer training, and manual therapy techniques to manage pain.
[2017-10-31 13:46] LABS: ALB/GLOB RATIO 1.7 (1.1-1.8); ALBUMIN 4.2 g/dL (4.0-5.0); BILIRUBIN,TOTAL 0.7 mg/dL (0.2-1.0); CREATININE 1.7 mg/dL (0.7-1.2); TOTAL PROTEIN 6.7 g/dL (6.6-8.7)
[2017-10-31] MEDS: WARFARIN 1 MG TABLET PO SCH (16:54)
[2017-10-31] MEDS: RANITIDINE HCL 150 MG TABLET PO SCH (21:44)
[2017-10-31] MEDS: ATORVASTATIN 20 MG TABLET PO SCH (21:44)
[2017-10-31] MEDS: LEVEMIR FLEXTOUCH 100 UNIT/ML INSULIN PEN SQ SCH (21:45)
[2017-10-31] MEDS: SENNOSIDES/DOCUSATE SODIUM UD CAPSULE PO SCH (21:48)
[2017-11-01] MEDS: LEVOTHYROXINE SODIUM 125 MCG TABLET PO SCH (06:12)
[2017-11-01] MEDS: POTASSIUM CHLORIDE 20 MEQ TABLET PO SCH ×2 (08:48→17:51)
[2017-11-01] MEDS: FERROUS SULFATE 325 MG TAB PO SCH ×3 (08:48→17:51)
[2017-11-01] MEDS: METOLAZONE 2.5 MG TABLET PO SCH (09:19)
[2017-11-01] MEDS: TAMSULOSIN HCL 0.4 MG CAP.ER.24H PO SCH (09:22)
[2017-11-01] MEDS: CHOLECALCIFEROL 1,000 UNIT TABLET PO SCH (09:22)
[2017-11-01] MEDS: MULTIVITAMINS/MINERALS TABLET PO SCH (09:23)
[2017-11-01] MEDS: BUMETANIDE 1 MG TABLET PO SCH ×2 (09:23→15:41)
[2017-11-01] MEDS: MAGNESIUM OXIDE 400 MG TABLET PO SCH (09:23)
[2017-11-01] MEDS: ASCORBIC ACID 500 MG TAB PO SCH ×2 (09:23→21:58)
[2017-11-01] MEDS: METOPROLOL SUCC 25 MG TAB.ER PO SCH ×2 (09:23→10:37)
[2017-11-01] MEDS: BREO (FLUTICASONE/VILANTEROL) 200MCG/25MCG INHALER INH SCH (09:32)
[2017-11-01 10:34] LABS: ALB/GLOB RATIO 1.7 (1.1-1.8); BILIRUBIN,TOTAL 0.7 mg/dL (0.2-1.0); CREATININE 1.7 mg/dL (0.7-1.2); TOTAL PROTEIN 6.4 g/dL (6.6-8.7)
[2017-11-01] MEDS: WARFARIN 1 MG TABLET PO SCH (15:41)
[2017-11-01] MEDS: MAGNESIUM HYDROXIDE 30 ML UDC PO PRN (15:41)
[2017-11-01] MEDS: SENNOSIDES/DOCUSATE SODIUM UD CAPSULE PO SCH (21:58)
[2017-11-01] MEDS: ATORVASTATIN 20 MG TABLET PO SCH (21:58)
[2017-11-01] MEDS: RANITIDINE HCL 150 MG TABLET PO SCH (21:59)
[2017-11-01] MEDS: LEVEMIR FLEXTOUCH 100 UNIT/ML INSULIN PEN SQ SCH (21:59)
[2017-11-02] MEDS: LEVOTHYROXINE SODIUM 125 MCG TABLET PO SCH (06:21)
[2017-11-02] MEDS: FERROUS SULFATE 325 MG TAB PO SCH ×3 (08:53→18:09)
[2017-11-02] MEDS: POTASSIUM CHLORIDE 20 MEQ TABLET PO SCH ×2 (08:53→18:09)
[2017-11-02] MEDS: BREO (FLUTICASONE/VILANTEROL) 200MCG/25MCG INHALER INH SCH (10:26)
[2017-11-02 10:36] LABS: INR 2.77; PROTHROMBIN TIME (PATIENT) 30.2 SECONDS (9.5-12.1)
[2017-11-02] MEDS: BUMETANIDE 1 MG TABLET PO SCH ×2 (11:07→15:51)
[2017-11-02] MEDS: METOLAZONE 2.5 MG TABLET PO SCH (11:08)
[2017-11-02 11:23] LABS: ALB/GLOB RATIO 1.7 (1.1-1.8); ALBUMIN 4.2 g/dL (4.0-5.0); BILIRUBIN,TOTAL 0.8 mg/dL (0.2-1.0); CREATININE 1.7 mg/dL (0.7-1.2); TOTAL PROTEIN 6.7 g/dL (6.6-8.7)
[2017-11-02] MEDS: MULTIVITAMINS/MINERALS TABLET PO SCH (15:44)
[2017-11-02] MEDS: METOPROLOL SUCC 25 MG TAB.ER PO SCH (15:45)
[2017-11-02] MEDS: ASCORBIC ACID 500 MG TAB PO SCH ×2 (15:45→22:01)
[2017-11-02] MEDS: MAGNESIUM OXIDE 400 MG TABLET PO SCH (15:45)
[2017-11-02] MEDS: CHOLECALCIFEROL 1,000 UNIT TABLET PO SCH (15:45)
[2017-11-02] MEDS: TAMSULOSIN HCL 0.4 MG CAP.ER.24H PO SCH (15:45)
[2017-11-02] MEDS: WARFARIN 1 MG TABLET PO SCH (15:57)
[2017-11-02] MEDS: SENNOSIDES/DOCUSATE SODIUM UD CAPSULE PO SCH (22:02)
[2017-11-02] MEDS: RANITIDINE HCL 150 MG TABLET PO SCH (22:02)
[2017-11-02] MEDS: ATORVASTATIN 20 MG TABLET PO SCH (22:02)
[2017-11-02] MEDS: LEVEMIR FLEXTOUCH 100 UNIT/ML INSULIN PEN SQ SCH (22:03)
[2017-11-03] MEDS: LEVOTHYROXINE SODIUM 125 MCG TABLET PO SCH (06:00)
[2017-11-03] MEDS: BUMETANIDE 1 MG TABLET PO SCH ×2 (09:42→17:22)
[2017-11-03] MEDS: CHOLECALCIFEROL 1,000 UNIT TABLET PO SCH (09:43)
[2017-11-03] MEDS: TAMSULOSIN HCL 0.4 MG CAP.ER.24H PO SCH (09:44)
[2017-11-03] MEDS: METOPROLOL SUCC 25 MG TAB.ER PO SCH (09:44)
[2017-11-03] MEDS: FERROUS SULFATE 325 MG TAB PO SCH ×3 (09:45→18:15)
[2017-11-03] MEDS: MAGNESIUM OXIDE 400 MG TABLET PO SCH (09:45)
[2017-11-03] MEDS: METOLAZONE 2.5 MG TABLET PO SCH (09:46)
[2017-11-03] MEDS: MULTIVITAMINS/MINERALS TABLET PO SCH (09:46)
[2017-11-03] MEDS: POTASSIUM CHLORIDE 20 MEQ TABLET PO SCH ×4 (09:47→18:16)
[2017-11-03] MEDS: BREO (FLUTICASONE/VILANTEROL) 200MCG/25MCG INHALER INH SCH (10:00)
[2017-11-03] MEDS: ASCORBIC ACID 500 MG TAB PO SCH (11:12)
[2017-11-03] MEDS: WARFARIN 1 MG TABLET PO SCH (17:23)
[2017-11-03] MEDS: LEVEMIR FLEXTOUCH 100 UNIT/ML INSULIN PEN SQ SCH (21:59)
[2017-11-03] MEDS: RANITIDINE HCL 150 MG TABLET PO SCH (21:59)
[2017-11-03] MEDS: ATORVASTATIN 20 MG TABLET PO SCH (21:59)
[2017-11-03] MEDS: SENNOSIDES/DOCUSATE SODIUM UD CAPSULE PO SCH (21:59)
[2017-11-04] MEDS: LEVOTHYROXINE SODIUM 125 MCG TABLET PO SCH (06:05)
[2017-11-04 06:44] LABS: ALB/GLOB RATIO 1.5 (1.1-1.8); ALBUMIN 3.7 g/dL (4.0-5.0); BILIRUBIN,TOTAL 0.8 mg/dL (0.2-1.0); CREATININE 1.5 mg/dL (0.7-1.2); TOTAL PROTEIN 6.1 g/dL (6.6-8.7)
[2017-11-04] MEDS: BREO (FLUTICASONE/VILANTEROL) 200MCG/25MCG INHALER INH SCH (09:04)
[2017-11-04] MEDS: ASCORBIC ACID 500 MG TAB PO SCH ×3 (09:57→22:52)
[2017-11-04] MEDS: MULTIVITAMINS/MINERALS TABLET PO SCH (09:58)
[2017-11-04] MEDS: FERROUS SULFATE 325 MG TAB PO SCH ×3 (09:58→17:28)
[2017-11-04] MEDS: POTASSIUM CHLORIDE 20 MEQ TABLET PO SCH ×2 (09:59→17:27)
[2017-11-04] MEDS: CHOLECALCIFEROL 1,000 UNIT TABLET PO SCH (09:59)
[2017-11-04] MEDS: MAGNESIUM OXIDE 400 MG TABLET PO SCH (10:00)
[2017-11-04] MEDS: METOPROLOL SUCC 25 MG TAB.ER PO SCH (10:00)
[2017-11-04] MEDS: TAMSULOSIN HCL 0.4 MG CAP.ER.24H PO SCH (10:00)
[2017-11-04] MEDS: METOLAZONE 2.5 MG TABLET PO SCH (10:01)
[2017-11-04] MEDS ORDERED: POTASSIUM CHLORIDE 20 MEQ TABLET PO ONE ×2 (10:10→17:26)
[2017-11-04] MEDS: BUMETANIDE 1 MG TABLET PO SCH ×2 (10:29→17:27)
--- NOTE | 2017-11-04 10:44 | Physical Therapy Tx Note ---
Physical Therapy Tx Note - Treatment Note Tolerated: Good Total Time Spent With Patient: 30 Physical Therapy Tx Note: Detail (The patient refused to go to Rehab department due to bowel issues. The patient ambulated with 2 canes a distance of 134 feet x 1. Shortness of breath was noted after ambulation. The patient completed LE strengthening exercises as follows: Black T- band hip abduction and hamstring curls, hip adductor squeezes, hip marching, LAQ reps until fatigued, UE exercises: green T-band rowing, scapular squeezes, bicep curls and tricep curls reps to fatigue. The patient tolerated treatment well.) Physical Therapy Problem List: Detail (1) Cervical and L kary region pain 2) Decreased LE strength 3) Decreased ability to complete sustained physical activity 4) Non ambulatory on stairs) Physical Therapy Goals: 1) The patient will ambulate independently on stairs with use of assistive device. 2) Increase LE strength 1/3 muscle grade to improve stability of gait. 3) The patient will ambulate community distances( 350 feet) with appropriate assistive device. 4) Assess bed mobility. 5) The patient will be independent with pain management techniques. Physical Therapy Plan: PT M-F 1 to 2 times a day for LE strengthening, bed mobility and transfer training, and manual therapy techniques to manage pain.
--- NOTE | 2017-11-04 11:03 | Physician Progress Note ---
Subjective - Date Date of Progress Note: 11/04/17 - Admitting Diagnosis Diagnosis: acute diastolic CHF; deconditioning - Subjective Nursing Care Plan Problem List Activity Intolerance (Swing Bed) Start: 10/16/17 18: 24 Freq: Status: Active Protocol: Created 10/16/17 18:24 RCS (Rec: 10/16/17 18:24 [facility] [id number]) Knowledge Deficit (Swing Bed) Start: 10/16/17 18: 24 Freq: Status: Active Protocol: Created 10/16/17 18:24 RCS (Rec: 10/16/17 18:24 [facility] [id number]) Pain (Swing Bed) Start: 10/16/17 18: 24 Freq: Status: Active Protocol: Created 10/16/17 18:24 RCS (Rec: 10/16/17 18:24 [facility] [id number]) Subjective: 11/04/17- Patient reports frequent, soft, barely formed stool. He says he has gone to the bathroom about every 2 hours for the last day. He reports a general feeling of bloating but no abdominal pain. Has some cramping while having a BM. Prior to this patient had been constipated. Otherwise, he is doing well. He denies swelling in his feet, shortness of breath, cough. General - Cognitive Patterns Speech: Normal Thought Process: Intact Thought Content: Normal - Communication Select best description of speech pattern: Clear Speech Ability to express ideas and wants: Understood Understanding verbal content: Usually Understands - Mood and Behavior Patterns Appearance: Well Groomed Mood: Normal Attitude: Cooperative Motor Activity: Calm Affect: Appropriate Hallucinations: Denies - Physical Functioning Activity Level: Up as tolerated Turning: Self ad trista ROM Ability: Moves all extremities Assistive Devices: Straight Cane, 2 Wheel Walker Activity Level Comment: Pt walked up and down the hallway Ambulation Ability: Independent Bed Mobility: Independent Transfer Ability: Independent Bathing Ability: Independent Personal Hygiene: Independent Dressing Ability: Independent Eating (Feeding) Ability: Independent Toileting Ability: Independent Administer Own Medication: Needs Assist - Continence Bowel Pattern: Diarrhea Bladder Pattern: Normal Meds/Allergies - Allergies Allergies Allergy/AdvReac Type Severity Reaction Status Date / Time onion Allergy Intermediate NAUSEA Verified 01/30/16 14:13 - Active Medications Current Medications Acetaminophen (Tylenol 325mg) 650 mg PO Q4H PRN PRN Reason: MILD PAIN Ascorbic Acid (Vitamin C) 1,000 mg PO BID [facility] Last Admin: 11/04/17 09:58 Dose: 1,000 mg Atorvastatin Calcium (Lipitor) 20 mg PO QHS [facility] Last Admin: 11/03/17 21:59 Dose: 20 mg Bumetanide (Bumex) 2 mg PO BIDDIUR [facility] Last Admin: 11/04/17 10:29 Dose: 2 mg Clotrimazole (Lotrisone) 0.5 gm TOP BID PRN PRN Reason: RASH Ferrous Sulfate (Iron) 325 mg PO WMEALS [facility] Last Admin: 11/04/17 09:58 Dose: 325 mg Insulin Detemir (Levemir Flextouch) 6 unit SQ QHS [facility] Last Admin: 11/03/17 21:59 Dose: 6 unit Levothyroxine Sodium (Synthroid) 125 mcg PO DAILYTHY [facility] Last Admin: 11/04/17 06:05 Dose: 125 mcg Magnesium Hydroxide (Milk Of Magnesium) 30 ml PO DAILY PRN PRN Reason: Constipation Last Admin: 11/01/17 15:41 Dose: 30 ml Magnesium Oxide (Mag Ox) 400 mg PO DAILY [facility] Last Admin: 11/04/17 10:00 Dose: 400 mg Metolazone (Zaroxolyn) 2.5 mg PO 0930 [facility] Last Admin: 11/04/17 10:01 Dose: 2.5 mg Metoprolol Succinate (Toprol Xl) 12.5 mg PO DAILY [facility] Last Admin: 11/04/17 10:00 Dose: 12.5 mg Multivitamins/Minerals (Centrum) 1 tab PO DAILY [facility] Last Admin: 11/04/17 09:58 Dose: 1 tab Oxycodone/Acetaminophen (Percocet 10-325 Mg Tablet) 1 each PO Q4H PRN PRN Reason: Pain - General Last Admin: 10/19/17 22:17 Dose: 1 each Oxycodone/Acetaminophen (Percocet 10-325 Mg Tablet) 2 each PO Q4H PRN PRN Reason: Pain - General Last Admin: 10/28/17 14:06 Dose: 2 each Polyethylene Glycol (Miralax) 17 gm PO QHS PRN PRN Reason: CONSTIPATION Potassium Chloride (Klor-Con) 40 meq PO BIDWM [facility] Last Admin: 11/04/17 09:59 Dose: 40 meq Ranitidine HCl (Zantac) 150 mg PO QHS [facility] Last Admin: 11/03/17 21:59 Dose: 150 mg Senna/Docusate Sodium (Senna Plus) 2 each PO QHS [facility] Last Admin: 11/03/17 21:59 Dose: 2 each Tamsulosin HCl (Flomax) 0.4 mg PO DAILY [facility] Last Admin: 11/04/17 10:00 Dose: 0.4 mg Vitamin D (Vitamin D3) 5,000 unit PO DAILY [facility] Last Admin: 11/04/17 09:59 Dose: 5,000 unit Warfarin Sodium (Coumadin) 2 mg PO TuThSa [facility] Last Admin: 11/01/17 15:41 Dose: 2 mg Warfarin Sodium (Coumadin) 3 mg PO SuMoWeFr [facility] Last Admin: 11/03/17 17:23 Dose: 3 mg Objective - Vital Signs Vital Signs: Vital Signs - Last 24 Hrs Temp Pulse Pulse Resp BP BP BP 11/04/17 09:05 76 18 11/04/17 08:00 97.6 F 76 18 109/61 11/03/17 22:10 97.4 F L 111/64 11/03/17 20:00 97.4 F L 72 18 111/64 Pulse Ox 11/04/17 09:05 95 11/04/17 08:00 96 11/03/17 22:10 11/03/17 20:00 97 - General General Appearance: Alert, Oriented x3, Cooperative, No acute distress Limitations: Physical limitation - Head Head exam: Normal inspection - Eye Eye exam: Normal appearance, PERRL Pupils: Normal accommodation - ENT ENT exam: Normal exam, Mucous membranes moist, Normal external ear exam, Normal orophraynx, TM's normal bilaterally Ear exam: Normal external inspection. negative: External canal tenderness Nasal Exam: Normal inspection. negative: Discharge, Sinus tenderness Mouth exam: Normal external inspection, Tongue normal Teeth exam: Normal inspection. negative: Dental caries Throat exam: Normal inspection. negative: Tonsillar erythema, Tonsillar exudate - Neck Neck exam: Normal inspection, Full ROM. negative: Tenderness - Respiratory Respiratory exam: Normal lung sounds bilaterally. negative: Respiratory distress - Cardiovascular Cardiovascular Exam: Regular rate, Irregular rhythm (chronic afib), Systolic murmur. negative: Normal rhythm, Normal heart sounds Peripheral Pulses: 0: Dorsalis Pedis (R), Dorsalis Pedis (L), 2+: Radial (R), Radial (L) - GI/Abdominal GI/Abdominal exam: Soft, Normal bowel sounds, Distended (mildly distended, but very soft). negative: Tenderness - Extremities Extremities exam: Full ROM. negative: Calf tenderness, Pedal edema, Tenderness - Neurological Neurological exam: Abnormal gait (walks with two canes), Alert, Oriented X3, Reflexes normal H&P Results - Labs Result Diagrams: 10/21/17 08:05 11/04/17 06:10 Labs Last 24 Hours: Laboratory Results - last 24 hr 11/04/17 06:10 Sodium 139 Potassium 2.7 L* Chloride 91 L Carbon Dioxide 34.0 H Anion Gap 14.0 BUN 45 H Creatinine 1.5 H Estimated GFR 48 Random Glucose 112 H Calcium 9.2 Total Bilirubin 0.80 AST 40 ALT 28 Alkaline Phosphatase 68 Total Protein 6.1 L Albumin 3.7 L Globulin 2.4 Albumin/Globulin Ratio 1.5 Discharge Potential - Discharge Needs Community Services Used Prior to Admission: Home Delivered Meals, Home Health Nurse, Occupational Therapy, Physical Therapy Patient Discharge Plan Description: Return Home, Visiting Nurse Community Services Needed at Discharge: Occupational Therapy, Physical Therapy Discharge Needs Comment: Followed by [facility] - Swing Bed Certification Initial Certification Due: 10/16/17 14 Day Re-Cert Due: 10/30/17 44 Day Re-Cert Due: 11/29/17 74 Day Re-Cert Due: 12/29/17 - Detailed Diagnosis and Plan (1) Physical deconditioning Current Visit: No Status: Acute Base Code: R53.81 - OTHER MALAISE Comment : 11/04/17- continues to improve. - PT/OT M-F to work on strength and physical function (2) Diarrhea Current Visit: Yes Status: Acute Base Code: R19.7 - DIARRHEA, UNSPECIFIED Comment: 11/04/17- loose stools q2H with no abdominal pain. Will get c. diff since he has been in the hospital for almost 2 months and has had several courses of abx. -stool studies ordered -increased potassium supplementation -will give immodium if stool studies are negative. consider CT abdomen if no improvement to eval for diverticulitis. (3) CHF (congestive heart failure) Current Visit: No Status: Chronic Qualifiers: Congestive heart failure type: diastolic Congestive heart failure chronicity: chronic Qualified Code(s): I50.32 - Chronic diastolic (congestive ) heart failure Base Code: I50.9 - HEART FAILURE, UNSPECIFIED Comment: 11/04/17- stable. renal function remains stable. He is tolerating bumex 2mg bid and metolazone 2.5mg once daily. He is not having any signs/symptoms of fluid overload. weight has been around 227-231lb. - pt to cont on Lipitor 20mg, Bumex 2mg BID along with metolazone 2.5mg once daily -continue his metoprolol to 12.5mg XL daily. hold for systolic pressure <100 (4) Diuretic-induced hypokalemia Current Visit: Yes Status: Acute Base Code: E87.6 - HYPOKALEMIA; T50.2X5A - ADVRS EFF OF CRBNC-ANHYDR INHIBTR, BENZO/OTH DIURETC, INIT Comment: 11/04/17- improved. BUN/CT 47/1.8 potassium down to 2.7 -increase potassium supplementation to 40mg po tidwm since having loose stool -repeat labs tomorrow
--- NOTE | 2017-11-04 11:21 | Swing Bed Certification/Recert ---
Initial Certification Due: 10/16/17 14 Day Re-Cert Due: 10/30/17 44 Day Re-Cert Due: 11/29/17 74 Day Re-Cert Due: 12/29/17 CERTIFICATION 3 CERTIFICATION OF PATIENT ADMISSION Required at time of admission. Due: 10/16/17 I certify that SNF services are required to be given on an inpatient basis because of the above named patient's need for correction care on a continuing basis for the condition(s) for which he/she was receiving inpatient hospital services prior to his/her transfer to the SNF. The patient's current needs for skilled care includes: [physical deconditioning , difficulty ambulating, CHF, CKD, ] Coretta Rajput 11/04/17
--- NOTE | 2017-11-04 15:28 | Physical Therapy Tx Note ---
Physical Therapy Tx Note - Treatment Note Physical Therapy Tx Note: Detail (The patient refused PT this pm. Will see the patient tomorrow am.) Physical Therapy Problem List: Detail (1) Cervical and L kary region pain 2) Decreased LE strength 3) Decreased ability to complete sustained physical activity 4) Non ambulatory on stairs) Physical Therapy Goals: 1) The patient will ambulate independently on stairs with use of assistive device. 2) Increase LE strength 1/3 muscle grade to improve stability of gait. 3) The patient will ambulate community distances( 350 feet) with appropriate assistive device. 4) Assess bed mobility. 5) The patient will be independent with pain management techniques. Physical Therapy Plan: PT M-F 1 to 2 times a day for LE strengthening, bed mobility and transfer training, and manual therapy techniques to manage pain.
[2017-11-04] MEDS: METRONIDAZOLE 250 MG TABLET PO SCH (17:28)
[2017-11-04] MEDS: WARFARIN 1 MG TABLET PO SCH (17:28)
[2017-11-04] MEDS: ATORVASTATIN 20 MG TABLET PO SCH (22:51)
[2017-11-04] MEDS: SENNOSIDES/DOCUSATE SODIUM UD CAPSULE PO SCH (22:51)
[2017-11-04] MEDS: RANITIDINE HCL 150 MG TABLET PO SCH (22:52)
[2017-11-04] MEDS: LEVEMIR FLEXTOUCH 100 UNIT/ML INSULIN PEN SQ SCH (22:53)
[2017-11-05] MEDS: METRONIDAZOLE 250 MG TABLET PO SCH ×3 (01:26→17:42)
[2017-11-05] MEDS: LEVOTHYROXINE SODIUM 125 MCG TABLET PO SCH (06:21)
[2017-11-05 06:38] LABS: BASO % 0.4 % (0-6); GRAN % 77.2 % (47-80); HEMATOCRIT 35.4 % (42.0-52.0); HEMOGLOBIN 10.7 gm/dl (14.0-18.0); LYMPH % 9.3 % (16-45); MEAN CELL VOLUME 89.8 fl (81-97); MEAN CORPUSCULAR HGB CONC 30.2 g/dl (32-36); MEAN PLATELET VOLUME 10.4 fl (7.4-10.4); MONO % 12.1 % (0-9); PLATELET COUNT 192 K/uL (130-400); RED BLOOD COUNT 3.94 M/uL (4.40-5.70); RED CELL DISTRIBUTION WIDTH 16.2 % (11.5-14.5); WHITE BLOOD COUNT W/O DIFF 7.8 K/uL (4.2-12.2)
[2017-11-05 06:40] LABS: MEAN CORPUSCULAR HEMOGLOBIN 27.1 pg (27-33)
[2017-11-05 06:47] LABS: CREATININE 1.6 mg/dL (0.7-1.2)
[2017-11-05] MEDS: FERROUS SULFATE 325 MG TAB PO SCH ×3 (08:10→17:42)
[2017-11-05] MEDS: POTASSIUM CHLORIDE 20 MEQ TABLET PO SCH ×3 (08:10→17:42)
[2017-11-05] MEDS: METOLAZONE 2.5 MG TABLET PO SCH (09:33)
[2017-11-05] MEDS: BUMETANIDE 1 MG TABLET PO SCH ×2 (10:07→16:11)
[2017-11-05] MEDS: MULTIVITAMINS/MINERALS TABLET PO SCH (10:08)
[2017-11-05] MEDS: MAGNESIUM OXIDE 400 MG TABLET PO SCH (10:08)
[2017-11-05] MEDS: TAMSULOSIN HCL 0.4 MG CAP.ER.24H PO SCH (10:08)
[2017-11-05] MEDS: ASCORBIC ACID 500 MG TAB PO SCH ×2 (10:09→21:55)
[2017-11-05] MEDS: METOPROLOL SUCC 25 MG TAB.ER PO SCH (10:09)
[2017-11-05] MEDS: CHOLECALCIFEROL 1,000 UNIT TABLET PO SCH (10:10)
[2017-11-05] MEDS: BREO (FLUTICASONE/VILANTEROL) 200MCG/25MCG INHALER INH SCH (10:15)
--- NOTE | 2017-11-05 13:06 | Occupational Therapy Tx Note ---
Occupational Therapy Tx Note - Treatment Note Tolerated: Fair Total Time Spent With Patient: 30 (ther ex) Occupational Therapy Treatment Note: Detail (S: Pt feeling weak today but motivated to participate in therapy. O: Pt up in chair, in isolation so unable to attend therapy in rehab gym. Pt completed doroteo UE reaching and resisted pinch activity using graded clothespins for reaching at and above shoulder height. Pt completed doroteo elbow and shoulder resisted activity with green flexbar x 25 reps each with elbows bent (supination and pronation) and 10 reps with elbows in extension. Blue theraputty provided to patient for desktop administrator and pinch strengthening. A: Generalized weakness noted today although pt motivated to complete therapy.) Occupational Therapy Problem List: Detail (1) BUE weakness, pain and impaired shd AROM 2) decreased endurance/activity tolerance 3) decreased safety and indepence in self-care ADL's) Occupational Therapy Goals: 1) Perform shower evaluation to determine safety and level of independence. 2) Maximize independence and safety in ADL's. 3) Increase pt's activity tolerance/endurance so pt. will be able to perform typical ADL routine. 4) Improve BUE strength to MMT 4/5. Prognosis: Good Occupational Therapy Plan: Provide in-pt OT services 2-4x/week M-F during typical rehab business hours to maximize safety and independence with ADL's, improve BUE strength to perform functional activities, and improve activity tolerance so pt. can perform typical ADL routine.
--- NOTE | 2017-11-05 13:45 | Physical Therapy Tx Note ---
Physical Therapy Tx Note - Treatment Note Tolerated: Good Total Time Spent With Patient: 30 Physical Therapy Tx Note: Detail (The patient was sitting up in chair when PT arrived. The patient completed LE exercises: black T-band: hip abduction, knee flexion L, blue band R knee flexion, all reps until fatigued, hip adductor squeezes, hip marching and LAQ until fatigued, UE: with blue band bicep curls, rowing all until fatigued. PT treatment was ended quickly when the patient had to go to the bathroom.) Physical Therapy Problem List: Detail (1) Cervical and L kary region pain 2) Decreased LE strength 3) Decreased ability to complete sustained physical activity 4) Non ambulatory on stairs) Physical Therapy Goals: 1) The patient will ambulate independently on stairs with use of assistive device. 2) Increase LE strength 1/3 muscle grade to improve stability of gait. 3) The patient will ambulate community distances( 350 feet) with appropriate assistive device. 4) Assess bed mobility. 5) The patient will be independent with pain management techniques. Physical Therapy Plan: PT M-F 1 to 2 times a day for LE strengthening, bed mobility and transfer training, and manual therapy techniques to manage pain.
[2017-11-05] MEDS: WARFARIN 1 MG TABLET PO SCH (16:10)
[2017-11-05] MEDS: RANITIDINE HCL 150 MG TABLET PO SCH (21:55)
[2017-11-05] MEDS: LEVEMIR FLEXTOUCH 100 UNIT/ML INSULIN PEN SQ SCH (21:55)
[2017-11-05] MEDS: ATORVASTATIN 20 MG TABLET PO SCH (21:55)
[2017-11-05] MEDS: SENNOSIDES/DOCUSATE SODIUM UD CAPSULE PO SCH (22:29)
[2017-11-06] MEDS: METRONIDAZOLE 250 MG TABLET PO SCH ×3 (01:45→16:53)
[2017-11-06] MEDS: LEVOTHYROXINE SODIUM 125 MCG TABLET PO SCH (06:03)
[2017-11-06 06:52] LABS: CREATININE 1.6 mg/dL (0.7-1.2)
[2017-11-06] MEDS: FERROUS SULFATE 325 MG TAB PO SCH ×3 (08:24→16:48)
[2017-11-06] MEDS: POTASSIUM CHLORIDE 20 MEQ TABLET PO SCH ×3 (08:25→16:52)
[2017-11-06 09:12] LABS: INR 1.98; PROTHROMBIN TIME (PATIENT) 21.5 SECONDS (9.5-12.1)
[2017-11-06] MEDS: METOLAZONE 2.5 MG TABLET PO SCH (10:00)
--- NOTE | 2017-11-06 10:24 | Physical Therapy Tx Note ---
Physical Therapy Tx Note - Treatment Note Tolerated: Good Total Time Spent With Patient: 35 Physical Therapy Tx Note: Detail (Patient states right hip sore. Patient performed the following exercises seated in chair x20-30 reps each: marching, LAQ, hamstring curls with blue theraband, hip abduction with black theraband, isometric hip adduction, glut squeezes, abdominal isometrics, and standing heel raises. Patient transferred sit to and from stand independently. Patient ambulated 10 feet with wheeled walker independently. Patient tolerated treatment well. Patient displays decreased strength and endurance with hamstring curls, glut squeezes, and abdominal isometrics. Patient was left seated on toilet in bathroom with pull cord within reach.) Physical Therapy Problem List: Detail (1) Cervical and L kary region pain 2) Decreased LE strength 3) Decreased ability to complete sustained physical activity 4) Non ambulatory on stairs) Physical Therapy Goals: 1) The patient will ambulate independently on stairs with use of assistive device. 2) Increase LE strength 1/3 muscle grade to improve stability of gait. 3) The patient will ambulate community distances( 350 feet) with appropriate assistive device. 4) Assess bed mobility. 5) The patient will be independent with pain management techniques. Prognosis: Good Physical Therapy Plan: PT M-F 1 to 2 times a day for LE strengthening, bed mobility and transfer training, and manual therapy techniques to manage pain.
[2017-11-06] MEDS: BREO (FLUTICASONE/VILANTEROL) 200MCG/25MCG INHALER INH SCH (10:30)
[2017-11-06] MEDS: BUMETANIDE 1 MG TABLET PO SCH ×3 (10:56→16:53)
[2017-11-06] MEDS: TAMSULOSIN HCL 0.4 MG CAP.ER.24H PO SCH (10:56)
[2017-11-06] MEDS: MULTIVITAMINS/MINERALS TABLET PO SCH (10:57)
[2017-11-06] MEDS: ASCORBIC ACID 500 MG TAB PO SCH ×2 (10:57→21:22)
[2017-11-06] MEDS: MAGNESIUM OXIDE 400 MG TABLET PO SCH (10:57)
[2017-11-06] MEDS: CHOLECALCIFEROL 1,000 UNIT TABLET PO SCH (10:57)
[2017-11-06] MEDS: METOPROLOL SUCC 25 MG TAB.ER PO SCH ×2 (10:57→10:59)
--- NOTE | 2017-11-06 14:40 | Physical Therapy Tx Note ---
Physical Therapy Tx Note - Treatment Note Tolerated: Good Total Time Spent With Patient: 30 Physical Therapy Tx Note: Detail (Patient states no new complaints. Patient performed the following exercises x15-20 reps each: bicep curls with green theraband, shoulder flexion, PNF D1 and D2 shoulder extension patterns with red theraband, right PNF D2 flexion pattern without theraband, left PNF D2 flexion pattern with green theraband, right PNF D1 flexion pattern with red theraband, left PNF D1 flexion pattern with green theraband, tricep extension with red theraband, shoulder internal rotation with red theraband, scapula squeezes, and shoulder extension with red theraband. Patient tolerated treatment well. Patient reports right shoulder sore with exercises. Patient was left seated in chair with call light within reach.) Physical Therapy Problem List: Detail (1) Cervical and L kary region pain 2) Decreased LE strength 3) Decreased ability to complete sustained physical activity 4) Non ambulatory on stairs) Physical Therapy Goals: 1) The patient will ambulate independently on stairs with use of assistive device. 2) Increase LE strength 1/3 muscle grade to improve stability of gait. 3) The patient will ambulate community distances( 350 feet) with appropriate assistive device. 4) Assess bed mobility. 5) The patient will be independent with pain management techniques. Prognosis: Good Physical Therapy Plan: PT M-F 1 to 2 times a day for LE strengthening, bed mobility and transfer training, and manual therapy techniques to manage pain.
[2017-11-06] MEDS: WARFARIN 1 MG TABLET PO SCH (16:53)
[2017-11-06] MEDS: BENZONATATE 100 MG CAPSULE PO PRN (18:44)
[2017-11-06] MEDS: SENNOSIDES/DOCUSATE SODIUM UD CAPSULE PO SCH (21:22)
[2017-11-06] MEDS: RANITIDINE HCL 150 MG TABLET PO SCH (21:22)
[2017-11-06] MEDS: LEVEMIR FLEXTOUCH 100 UNIT/ML INSULIN PEN SQ SCH (21:22)
[2017-11-06] MEDS: ATORVASTATIN 20 MG TABLET PO SCH (21:22)
[2017-11-07] MEDS: METRONIDAZOLE 250 MG TABLET PO SCH ×3 (01:36→18:23)
[2017-11-07] MEDS: BENZONATATE 100 MG CAPSULE PO PRN ×3 (01:44→18:28)
[2017-11-07] MEDS: LEVOTHYROXINE SODIUM 125 MCG TABLET PO SCH (06:32)
[2017-11-07 06:40] LABS: BASO % 0.3 % (0-6); EOS % 0.7 % (0-6); GRAN % 76.5 % (47-80); HEMATOCRIT 37.8 % (42.0-52.0); HEMOGLOBIN 11.7 gm/dl (14.0-18.0); MEAN CELL VOLUME 88.7 fl (81-97); MEAN PLATELET VOLUME 10.2 fl (7.4-10.4); MONO % 12.5 % (0-9); PLATELET COUNT 202 K/uL (130-400); RED BLOOD COUNT 4.26 M/uL (4.40-5.70); RED CELL DISTRIBUTION WIDTH 16.3 % (11.5-14.5); WHITE BLOOD COUNT W/O DIFF 7.1 K/uL (4.2-12.2)
[2017-11-07 06:41] LABS: MEAN CORPUSCULAR HEMOGLOBIN 27.4 pg (27-33)
[2017-11-07 07:01] LABS: ALB/GLOB RATIO 1.6 (1.1-1.8); ALBUMIN 3.6 g/dL (4.0-5.0); BILIRUBIN,TOTAL 0.6 mg/dL (0.2-1.0); CREATININE 1.6 mg/dL (0.7-1.2); TOTAL PROTEIN 5.8 g/dL (6.6-8.7)
[2017-11-07] MEDS: FERROUS SULFATE 325 MG TAB PO SCH ×3 (08:22→18:23)
[2017-11-07] MEDS: POTASSIUM CHLORIDE 20 MEQ TABLET PO SCH ×2 (08:22→18:23)
[2017-11-07] MEDS: METOLAZONE 2.5 MG TABLET PO SCH (10:04)
[2017-11-07] MEDS: ASCORBIC ACID 500 MG TAB PO SCH ×2 (10:05→22:56)
[2017-11-07] MEDS: TAMSULOSIN HCL 0.4 MG CAP.ER.24H PO SCH (10:06)
[2017-11-07] MEDS: MAGNESIUM OXIDE 400 MG TABLET PO SCH (10:06)
[2017-11-07] MEDS: METOPROLOL SUCC 25 MG TAB.ER PO SCH (10:07)
[2017-11-07] MEDS: CHOLECALCIFEROL 1,000 UNIT TABLET PO SCH (10:07)
[2017-11-07] MEDS: MULTIVITAMINS/MINERALS TABLET PO SCH (10:07)
[2017-11-07] MEDS: BUMETANIDE 1 MG TABLET PO SCH ×2 (11:09→16:21)
[2017-11-07] MEDS ORDERED: SODIUM CHLORIDE 0.9% IVPB ONE (11:15)
[2017-11-07] MEDS ORDERED: POTASSIUM CHLORIDE IVPB ONE (11:15)
[2017-11-07] MEDS: BREO (FLUTICASONE/VILANTEROL) 200MCG/25MCG INHALER INH SCH ×2 (11:25→13:00)
--- NOTE | 2017-11-07 13:41 | Physical Therapy Tx Note ---
Physical Therapy Tx Note - Treatment Note Tolerated: Good Total Time Spent With Patient: 20 Physical Therapy Tx Note: Detail (The patient was up in chair with IV in place. The patient completed LE strengthening exercises: hip marching, LAQ, hip adductor squeezes, gluteal squeezes all x 20 reps, black T-band hip abduction and hamstring curls until fatigued. Patient tolerated treatment fair. Increased complaints of fatigue today due to the patient has been unable to sleep.) Physical Therapy Problem List: Detail (1) Cervical and L kary region pain 2) Decreased LE strength 3) Decreased ability to complete sustained physical activity 4) Non ambulatory on stairs) Physical Therapy Goals: 1) The patient will ambulate independently on stairs with use of assistive device. 2) Increase LE strength 1/3 muscle grade to improve stability of gait. 3) The patient will ambulate community distances( 350 feet) with appropriate assistive device. 4) Assess bed mobility. 5) The patient will be independent with pain management techniques. Physical Therapy Plan: PT M-F 1 to 2 times a day for LE strengthening, bed mobility and transfer training, and manual therapy techniques to manage pain.
[2017-11-07] MEDS: WARFARIN 1 MG TABLET PO SCH (16:20)
[2017-11-07 16:58] LABS: CREATININE 1.7 mg/dL (0.7-1.2)
[2017-11-07] MEDS: ALBUTEROL HFA 8 GM INHALER INH PRN ×2 (17:00→21:06)
[2017-11-07] MEDS: LEVEMIR FLEXTOUCH 100 UNIT/ML INSULIN PEN SQ SCH (22:56)
[2017-11-07] MEDS: ATORVASTATIN 20 MG TABLET PO SCH (22:56)
[2017-11-07] MEDS: RANITIDINE HCL 150 MG TABLET PO SCH (22:56)
[2017-11-07] MEDS: SENNOSIDES/DOCUSATE SODIUM UD CAPSULE PO SCH (22:59)
[2017-11-08] MEDS: METRONIDAZOLE 250 MG TABLET PO SCH ×3 (01:59→17:30)
[2017-11-08] MEDS: BENZONATATE 100 MG CAPSULE PO PRN ×2 (02:03→11:35)
[2017-11-08] MEDS: ALBUTEROL HFA 8 GM INHALER INH PRN ×3 (04:39→20:00)
[2017-11-08] MEDS: LEVOTHYROXINE SODIUM 125 MCG TABLET PO SCH (07:08)
[2017-11-08] MEDS: POTASSIUM CHLORIDE 20 MEQ TABLET PO SCH ×3 (08:34→17:29)
[2017-11-08] MEDS: FERROUS SULFATE 325 MG TAB PO SCH ×3 (08:34→17:29)
[2017-11-08] MEDS: BREO (FLUTICASONE/VILANTEROL) 200MCG/25MCG INHALER INH SCH (10:00)
[2017-11-08] MEDS: MULTIVITAMINS/MINERALS TABLET PO SCH (10:12)
[2017-11-08] MEDS: TAMSULOSIN HCL 0.4 MG CAP.ER.24H PO SCH (10:12)
[2017-11-08] MEDS: ASCORBIC ACID 500 MG TAB PO SCH ×2 (10:13→21:59)
[2017-11-08] MEDS: METOPROLOL SUCC 25 MG TAB.ER PO SCH (10:13)
[2017-11-08] MEDS: CHOLECALCIFEROL 1,000 UNIT TABLET PO SCH (10:13)
[2017-11-08] MEDS: METOLAZONE 2.5 MG TABLET PO SCH (10:14)
[2017-11-08] MEDS: MAGNESIUM OXIDE 400 MG TABLET PO SCH (10:14)
[2017-11-08] MEDS: BUMETANIDE 1 MG TABLET PO SCH ×2 (11:29→18:16)
[2017-11-08] MEDS ORDERED: PHENOL SORE THROAT SPRAY 177 ML BTL MM PRN (11:45)
[2017-11-08] MEDS: WARFARIN 1 MG TABLET PO SCH (17:35)
[2017-11-08 18:37] LABS: CREATININE 1.7 mg/dL (0.7-1.2)
[2017-11-08] MEDS: GUAIFENESIN 1,200 MG TABLET PO SCH ×2 (20:24→22:00)
[2017-11-08] MEDS: ATORVASTATIN 20 MG TABLET PO SCH (21:59)
[2017-11-08] MEDS: RANITIDINE HCL 150 MG TABLET PO SCH (21:59)
[2017-11-08] MEDS: SENNOSIDES/DOCUSATE SODIUM UD CAPSULE PO SCH (22:00)
[2017-11-08] MEDS: LEVEMIR FLEXTOUCH 100 UNIT/ML INSULIN PEN SQ SCH (22:00)
--- NOTE | 2017-11-08 23:54 | RADIOLOGY REPORT ---
EXAM: ABDOMEN, ACUTE SERIES HISTORY: BLOATING AND DISTENTION. TECHNIQUE: PA chest, supine and upright abdomen. COMPARISON: Chest x-ray 09/18/17. Abdomen series 11/02/16. FINDINGS: PA CHEST: Previously seen right-sided PIC line has been removed since 09/18/17. The left-sided ICD remains in place. Persistent cardiomegaly. Persistent elevation left hemidiaphragm. No definite acute infiltrate seen. Slightly prominent left suprahilar density appears to have been present on the 09/16/17 study as well and is probably a combination of some costochondral calcification in the left first rib and underlying vascular structures. This was also seen on the 07/14/17 study. No definite pleural effusion or pneumothorax evident. ABDOMEN IMAGES: Post-op right SONG, as before. Battery pack left lower quadrant, as before. Nonspecific bowel gas pattern with few if any air-fluid levels seen and no free air identified. Prominent degenerative change in the spine. IMPRESSION: 1. POST-OP ICD IN THE CHEST, BATTERY PACK LEFT LOWER QUADRANT OF THE ABDOMEN, AND RIGHT SONG, BEFORE. 2. PERSISTENT ELEVATION LEFT HEMIDIAPHRAGM. 3. NONSPECIFIC BOWEL GAS PATTERN WITH NO FREE AIR EVIDENT. 4. PROMINENT DEGENERATIVE CHANGE IN THE SPINE. JOB NUMBER: [id number] [facility]
[2017-11-09] MEDS: METRONIDAZOLE 250 MG TABLET PO SCH ×4 (00:02→16:57)
[2017-11-09] MEDS: LEVOTHYROXINE SODIUM 125 MCG TABLET PO SCH (06:49)
[2017-11-09] MEDS: FERROUS SULFATE 325 MG TAB PO SCH ×3 (08:03→16:55)
[2017-11-09] MEDS: POTASSIUM CHLORIDE 20 MEQ TABLET PO SCH ×3 (08:03→16:56)
[2017-11-09] MEDS: ALBUTEROL HFA 8 GM INHALER INH PRN ×2 (10:00→17:39)
[2017-11-09] MEDS: BREO (FLUTICASONE/VILANTEROL) 200MCG/25MCG INHALER INH SCH (10:00)
[2017-11-09] MEDS: TAMSULOSIN HCL 0.4 MG CAP.ER.24H PO SCH (10:10)
[2017-11-09] MEDS: MAGNESIUM OXIDE 400 MG TABLET PO SCH (10:10)
[2017-11-09] MEDS: ASCORBIC ACID 500 MG TAB PO SCH ×2 (10:10→22:46)
[2017-11-09] MEDS: BUMETANIDE 1 MG TABLET PO SCH ×2 (10:10→16:56)
[2017-11-09] MEDS: METOLAZONE 2.5 MG TABLET PO SCH (10:11)
[2017-11-09] MEDS: MULTIVITAMINS/MINERALS TABLET PO SCH (10:12)
[2017-11-09] MEDS: GUAIFENESIN 1,200 MG TABLET PO SCH ×2 (10:12→22:46)
[2017-11-09] MEDS: METOPROLOL SUCC 25 MG TAB.ER PO SCH (10:12)
[2017-11-09] MEDS: CHOLECALCIFEROL 1,000 UNIT TABLET PO SCH (10:12)
[2017-11-09 10:57] LABS: BASO % 0.2 % (0-6); EOS % 1.4 % (0-6); GRAN % 72.2 % (47-80); HEMOGLOBIN 11.9 gm/dl (14.0-18.0); LYMPH % 12.6 % (16-45); MEAN CELL VOLUME 89.6 fl (81-97); MEAN CORPUSCULAR HGB CONC 31.3 g/dl (32-36); MEAN PLATELET VOLUME 10.5 fl (7.4-10.4); MONO % 13.6 % (0-9); PLATELET COUNT 202 K/uL (130-400); RED BLOOD COUNT 4.24 M/uL (4.40-5.70); RED CELL DISTRIBUTION WIDTH 16.2 % (11.5-14.5); WHITE BLOOD COUNT W/O DIFF 5.1 K/uL (4.2-12.2)
[2017-11-09 11:03] LABS: CREATININE 1.8 mg/dL (0.7-1.2)
[2017-11-09] MEDS: ENOXAPARIN 40 MG/0.4 ML SYR SQ SCH (13:44)
[2017-11-09 13:59] LABS: INR 1.91; PROTHROMBIN TIME (PATIENT) 20.8 SECONDS (9.5-12.1)
[2017-11-09] MEDS: WARFARIN 1 MG TABLET PO SCH (16:55)
[2017-11-09] MEDS ORDERED: LEVOFLOXACIN 500 MG TABLET PO SCH (18:45)
[2017-11-09] MEDS: IPRATROPIUM/ALBUTEROL (0.5MG/3MG) NEB INH PRN (20:30)
[2017-11-09] MEDS: RANITIDINE HCL 150 MG TABLET PO SCH (22:46)
[2017-11-09] MEDS: SENNOSIDES/DOCUSATE SODIUM UD CAPSULE PO SCH (22:46)
[2017-11-09] MEDS: LEVOFLOXACIN 500 MG TABLET PO SCH (22:46)
[2017-11-09] MEDS: ATORVASTATIN 20 MG TABLET PO SCH (22:46)
[2017-11-09] MEDS: LEVEMIR FLEXTOUCH 100 UNIT/ML INSULIN PEN SQ SCH (22:47)
[2017-11-10] MEDS: METRONIDAZOLE 250 MG TABLET PO SCH ×4 (00:40→23:09)
[2017-11-10] MEDS: IPRATROPIUM/ALBUTEROL (0.5MG/3MG) NEB INH PRN ×2 (05:51→20:53)
[2017-11-10] MEDS: LEVOTHYROXINE SODIUM 125 MCG TABLET PO SCH (06:41)
[2017-11-10 06:58] LABS: INR 2.09; PROTHROMBIN TIME (PATIENT) 22.7 SECONDS (9.5-12.1)
[2017-11-10 07:06] LABS: CREATININE 1.6 mg/dL (0.7-1.2)
--- NOTE | 2017-11-10 07:31 | RADIOLOGY REPORT ---
EXAM: CHEST, TWO VIEWS HISTORY: COUGH AND CRACKLES RIGHT BASE, POSSIBLE PNEUMONIA. TECHNIQUE: PA and lateral views of the chest were obtained. Comparison: Two view chest 09/07/17. FINDINGS: Slightly greater relative elevation of the left hemidiaphragm currently. There is some new streaky atelectasis or infiltrate in the left base as well. The heart size is stable. ICD remains in place with no pneumothorax evident. Vague density along the anterior aspect of both first ribs also present previously is probably just some costochondral calcification. IMPRESSION: 1. GREATER ELEVATION OF THE LEFT HEMIDIAPHRAGM WITH SOME NEW STREAKY ATELECTASIS OR INFILTRATE IN THE LEFT LOWER LOBE BLURRING THE LEFT HEMIDIAPHRAGM. RECOMMEND FOLLOW-UP TO DEMONSTRATE CLEARING. 2. ICD REMAINS IN PLACE. JOB NUMBER: [id number] [facility]
--- NOTE | 2017-11-10 07:38 | Discharge Summary ---
Providers Discharge Summary Date: 11/13/17 Date of admission: 10/16/17 17:06 Attending physician: Alejo Agosto Primary care physician: Alejo Agosto Physical Exam - Vital Signs Vital Signs: Vital Signs - Last 24 Hrs Temp Pulse Pulse Pulse Resp BP Pulse Ox 11/10/17 05:51 70 16 91 L 11/09/17 20:30 80 18 98 11/09/17 20:00 96.1 F L 68 20 114/62 97 11/09/17 17:39 73 17 99 11/09/17 10:50 73 17 99 11/09/17 10:00 97 11/09/17 08:00 97 F L 71 18 99/60 96 - General General Appearance: Alert, Oriented x3, Cooperative, No acute distress Limitations: Physical limitation - Head Head exam: Normal inspection - Eye Eye exam: Normal appearance, PERRL Pupils: Normal accommodation - ENT ENT exam: Normal exam, Mucous membranes moist, Normal external ear exam, Normal orophraynx, TM's normal bilaterally Ear exam: Normal external inspection. negative: External canal tenderness Nasal Exam: Normal inspection. negative: Discharge, Sinus tenderness Mouth exam: Normal external inspection, Tongue normal Teeth exam: Normal inspection. negative: Dental caries Throat exam: Normal inspection. negative: Tonsillar erythema, Tonsillar exudate - Neck Neck exam: Normal inspection, Full ROM. negative: Tenderness - Respiratory Respiratory exam: Normal lung sounds bilaterally. negative: Respiratory distress - Cardiovascular Cardiovascular Exam: Regular rate, Irregular rhythm (chronic afib), Systolic murmur. negative: Normal rhythm, Normal heart sounds Peripheral Pulses: 0: Dorsalis Pedis (R), Dorsalis Pedis (L), 2+: Radial (R), Radial (L) - GI/Abdominal GI/Abdominal exam: Soft, Normal bowel sounds. negative: Distended, Tenderness - Extremities Extremities exam: Full ROM. negative: Calf tenderness, Pedal edema, Tenderness - Neurological Neurological exam: Alert, Normal gait, Oriented X3, Reflexes normal - Psychiatric Psychiatric exam: Normal affect, Normal mood Hospitalization - Hospitalization Admission Diagnosis: acute diastolic CHF; deconditioning - Problem List (1) Physical deconditioning Status: Acute Base Code: R53.81 - OTHER MALAISE Comment: 11/13/17- continues to improve. - Patient will discharge home today and continue with home therapy (2) Diarrhea Status: Acute Base Code: R19.7 - DIARRHEA, UNSPECIFIED Comment: 11/13/17- Patient tested positive for C.Diff and was started on treatement with flagyl 500mg po Q8H for 14 day course. He is discharging on day 13 of treatment and symptoms are mostly resolved. stool is almost back to being formed and frequency has decreased significantly. -continue flagyl through 14 day course. (3) CHF (congestive heart failure) Status: Chronic Discharge Diagnosis: Congestive heart failure type: diastolic Congestive heart failure chronicity: chronic Qualified Code(s): I50.32 - Chronic diastolic (congestive ) heart failure Base Code: I50.9 - HEART FAILURE, UNSPECIFIED Comment: 11/13/17- stable. renal function remains stable. He is tolerating bumex 2mg bid and metolazone 2.5mg once daily. He is not having any signs/symptoms of fluid overload. weight has been around 227-231lb. - pt to cont on Lipitor 20mg, Bumex 2mg BID along with metolazone 2.5mg once daily -continue his metoprolol to 12.5mg XL daily -continue 2000cc fluid restricted diet -follow up with Cardiology in December as scheduled (4) Diuretic-induced hypokalemia Status: Acute Base Code: E87.6 - HYPOKALEMIA; T50.2X5A - ADVRS EFF OF CRBNC- ANHYDR INHIBTR, BENZO/OTH DIURETC, INIT Comment: 11/13/17- improved. BUN/CT 47/ 1.8 potassium between 3.3-3.4 with potassium 40meq po TID. He had decrease 2/2 gi loss with ongoing c.diff. his potassium improved as his diarrhea improved and he has been stable with oral replacement. -continue potassium chloride 40meq po TID prior to meals -home health care will be drawing labs. Ordered CMP q48H x2 then qweek x2. He has follow up with his pcp on 11/17/17 (5) Pneumonia Status: Acute Base Code: J18.9 - PNEUMONIA, UNSPECIFIED ORGANISM Comment: 09/20- As patient's c.diff was improving he developed productive cough, cehst congestion and shortness of breath. CXR performed showed LLL infiltrate. He was started on Levaquin 750mg and had significant improvement in cough, shortness of breath. Home oxygen qualifier performed and overnight oxygen study performed and he did not qualify for home oxygen. He is going to pay out of pocket in order to have oxygen available at home should he feels he needs it. I wrote script for this and SW has set this up prior to discharge. -continue levaquin 750mg po q48H for renal dosing. His last dose will be . 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 He had some changes in INR level with starting flagyl and levaquin as expected. Pharmacy has given dosing instructions for patient through the end of his antibiotic therapy and then following antibiotics. He geraldo do 2mg coumadin daily until finished with abx then resume 3mg po daily. -ordered INR q48H to be drawn by home health -follow up with his pcp on 11/17/17 - Hospitalization Course Disposition: Home Health Service Procedures: Imaging and X-Rays 11/07/17 14:00 ABDOMEN, ACUTE SERIES [RAD] Stat 11/09/17 12:55 CHEST 2 VIEWS [RAD] Stat Cardiology Procedures 10/18/17 11:30 Informaticist .Continuous Abnormal Labs: Abnormal Lab Results 10/17/17 10/18/17 10/18/17 Range/Units 22:30 06:05 06:05 RBC 3.88 L (4.40-5.70) M/uL Hgb 10.9 L (14.0-18.0) gm/dl Hct 35.1 L (42.0-52.0) % MCHC 31.1 L (32-36) g/dl RDW 17.0 H (11.5-14.5) % MPV 11.9 H (7.4-10.4) fl Gran % 80.4 H (47-80) % Lymphocytes % 6.6 L (16-45) % Monocytes % 11.4 H (0-9) % PT 25.7 H (9.5-12.1) SECONDS Sodium (136-145) mmol/L Potassium (3.4-4.5) mmol/L Chloride (98-107) mmol/L Carbon Dioxide (22-29) mmol/L BUN (8-23) mg/dL Creatinine (0.7-1.2) mg/dL POC Glucose 133 H (70-110) mg/dL Random Glucose (74-109) mg/dL Total Protein (6.6-8.7) g/dL Albumin (4.0-5.0) g/dL 10/18/17 10/18/17 10/19/17 Range/Units 06:05 22:05 01:45 RBC (4.40-5.70) M/uL Hgb (14.0-18.0) gm/dl Hct (42.0-52.0) % MCHC (32-36) g/dl RDW (11.5-14.5) % MPV (7.4-10.4) fl Gran % (47-80) % Lymphocytes % (16-45) % Monocytes % (0-9) % PT (9.5-12.1) SECONDS Sodium (136-145) mmol/L Potassium 2.5 L* 3.0 L (3.4-4.5) mmol/L Chloride 93 L 94 L (98-107) mmol/L Carbon Dioxide 32.0 H 30.0 H (22-29) mmol/L BUN 66 H 60 H (8-23) mg/dL Creatinine 2.3 H 2.1 H (0.7-1.2) mg/dL POC Glucose 117 H (70-110) mg/dL Random Glucose 116 H 177 H (74-109) mg/dL Total Protein (6.6-8.7) g/dL Albumin (4.0-5.0) g/dL 10/19/17 10/20/17 10/20/17 Range/Units 22:14 06:27 06:27 RBC (4.40-5.70) M/uL Hgb (14.0-18.0) gm/dl Hct (42.0-52.0) % MCHC (32-36) g/dl RDW (11.5-14.5) % MPV (7.4-10.4) fl Gran % (47-80) % Lymphocytes % (16-45) % Monocytes % (0-9) % PT 22.7 H (9.5-12.1) SECONDS Sodium (136-145) mmol/L Potassium 3.3 L (3.4-4.5) mmol/L Chloride 97 L (98-107) mmol/L Carbon Dioxide 32.0 H (22-29) mmol/L BUN 57 H (8-23) mg/dL Creatinine 1.8 H (0.7-1.2) mg/dL POC Glucose 129 H (70-110) mg/dL Random Glucose 120 H (74-109) mg/dL Total Protein (6.6-8.7) g/dL Albumin (4.0-5.0) g/dL 10/20/17 10/21/17 10/21/17 Range/Units 21:52 08:05 08:05 RBC 4.14 L (4.40-5.70) M/uL Hgb 11.6 L (14.0-18.0) gm/dl Hct 37.5 L (42.0-52.0) % MCHC 30.9 L (32-36) g/dl RDW 16.9 H (11.5-14.5) % MPV 11.1 H (7.4-10.4) fl Gran % (47-80) % Lymphocytes % 11.1 L (16-45) % Monocytes % (0-9) % PT (9.5-12.1) SECONDS Sodium (136-145) mmol/L Potassium 3.2 L (3.4-4.5) mmol/L Chloride 97 L (98-107) mmol/L Carbon Dioxide 31.0 H (22-29) mmol/L BUN 47 H (8-23) mg/dL Creatinine 1.8 H (0.7-1.2) mg/dL POC Glucose 145 H (70-110) mg/dL Random Glucose (74-109) mg/dL Total Protein (6.6-8.7) g/dL Albumin (4.0-5.0) g/dL 10/21/17 10/22/17 10/22/17 Range/Units 23:04 06:45 06:45 RBC (4.40-5.70) M/uL Hgb (14.0-18.0) gm/dl Hct (42.0-52.0) % MCHC (32-36) g/dl RDW (11.5-14.5) % MPV (7.4-10.4) fl Gran % (47-80) % Lymphocytes % (16-45) % Monocytes % (0-9) % PT 26.4 H (9.5-12.1) SECONDS Sodium (136-145) mmol/L Potassium (3.4-4.5) mmol/L Chloride 96 L (98-107) mmol/L Carbon Dioxide 34.0 H (22-29) mmol/L BUN 47 H (8-23) mg/dL Creatinine 1.8 H (0.7-1.2) mg/dL POC Glucose 170 H (70-110) mg/dL Random Glucose 113 H (74-109) mg/dL Total Protein (6.6-8.7) g/dL Albumin 3.9 L (4.0-5.0) g/dL 10/22/17 10/22/17 10/24/17 Range/Units 06:51 22:00 08:30 RBC (4.40-5.70) M/uL Hgb (14.0-18.0) gm/dl Hct (42.0-52.0) % MCHC (32-36) g/dl RDW (11.5-14.5) % MPV (7.4-10.4) fl Gran % (47-80) % Lymphocytes % (16-45) % Monocytes % (0-9) % PT 27.1 H (9.5-12.1) SECONDS Sodium (136-145) mmol/L Potassium (3.4-4.5) mmol/L Chloride (98-107) mmol/L Carbon Dioxide (22-29) mmol/L BUN (8-23) mg/dL Creatinine (0.7-1.2) mg/dL POC Glucose 119 H 151 H (70-110) mg/dL Random Glucose (74-109) mg/dL Total Protein (6.6-8.7) g/dL Albumin (4.0-5.0) g/dL 10/24/17 10/25/17 10/26/17 Range/Units 08:30 09:30 22:53 RBC (4.40-5.70) M/uL Hgb (14.0-18.0) gm/dl Hct (42.0-52.0) % MCHC (32-36) g/dl RDW (11.5-14.5) % MPV (7.4-10.4) fl Gran % (47-80) % Lymphocytes % (16-45) % Monocytes % (0-9) % PT (9.5-12.1) SECONDS Sodium (136-145) mmol/L Potassium 3.1 L 3.1 L (3.4-4.5) mmol/L Chloride 94 L 92 L (98-107) mmol/L Carbon Dioxide 34.0 H 35.0 H (22-29) mmol/L BUN 47 H 48 H (8-23) mg/dL Creatinine 1.8 H 1.8 H (0.7-1.2) mg/dL POC Glucose 136 H (70-110) mg/dL Random Glucose 151 H 156 H (74-109) mg/dL Total Protein (6.6-8.7) g/dL Albumin (4.0-5.0) g/dL 10/27/17 10/27/17 10/28/17 Range/Units 07:17 08:00 07:30 RBC (4.40-5.70) M/uL Hgb (14.0-18.0) gm/dl Hct (42.0-52.0) % MCHC (32-36) g/dl RDW (11.5-14.5) % MPV (7.4-10.4) fl Gran % (47-80) % Lymphocytes % (16-45) % Monocytes % (0-9) % PT 33.0 H (9.5-12.1) SECONDS Sodium (136-145) mmol/L Potassium (3.4-4.5) mmol/L Chloride (98-107) mmol/L Carbon Dioxide (22-29) mmol/L BUN (8-23) mg/dL Creatinine (0.7-1.2) mg/dL POC Glucose 115 H 120 H (70-110) mg/dL Random Glucose (74-109) mg/dL Total Protein (6.6-8.7) g/dL Albumin (4.0-5.0) g/dL 10/28/17 10/30/17 10/30/17 Range/Units 09:56 07:00 08:46 RBC (4.40-5.70) M/uL Hgb (14.0-18.0) gm/dl Hct (42.0-52.0) % MCHC (32-36) g/dl RDW (11.5-14.5) % MPV (7.4-10.4) fl Gran % (47-80) % Lymphocytes % (16-45) % Monocytes % (0-9) % PT 36.3 H (9.5-12.1) SECONDS Sodium (136-145) mmol/L Potassium (3.4-4.5) mmol/L Chloride 95 L (98-107) mmol/L Carbon Dioxide 34.0 H (22-29) mmol/L BUN 44 H (8-23) mg/dL Creatinine 1.8 H (0.7-1.2) mg/dL POC Glucose 120 H (70-110) mg/dL Random Glucose 187 H (74-109) mg/dL Total Protein (6.6-8.7) g/dL Albumin (4.0-5.0) g/dL 10/31/17 10/31/17 10/31/17 Range/Units 06:45 12:50 21:39 RBC (4.40-5.70) M/uL Hgb (14.0-18.0) gm/dl Hct (42.0-52.0) % MCHC (32-36) g/dl RDW (11.5-14.5) % MPV (7.4-10.4) fl Gran % (47-80) % Lymphocytes % (16-45) % Monocytes % (0-9) % PT (9.5-12.1) SECONDS Sodium (136-145) mmol/L Potassium (3.4-4.5) mmol/L Chloride 92 L (98-107) mmol/L Carbon Dioxide 33.0 H (22-29) mmol/L BUN 44 H (8-23) mg/dL Creatinine 1.7 H (0.7-1.2) mg/dL POC Glucose 112 H 130 H (70-110) mg/dL Random Glucose 161 H (74-109) mg/dL Total Protein (6.6-8.7) g/dL Albumin (4.0-5.0) g/dL 11/01/17 11/01/17 11/02/17 Range/Units 10:04 21:26 06:30 RBC (4.40-5.70) M/uL Hgb (14.0-18.0) gm/dl Hct (42.0-52.0) % MCHC (32-36) g/dl RDW (11.5-14.5) % MPV (7.4-10.4) fl Gran % (47-80) % Lymphocytes % (16-45) % Monocytes % (0-9) % PT (9.5-12.1) SECONDS Sodium (136-145) mmol/L Potassium (3.4-4.5) mmol/L Chloride 93 L (98-107) mmol/L Carbon Dioxide 35.0 H (22-29) mmol/L BUN 45 H (8-23) mg/dL Creatinine 1.7 H (0.7-1.2) mg/dL POC Glucose 133 H 114 H (70-110) mg/dL Random Glucose 208 H (74-109) mg/dL Total Protein 6.4 L (6.6-8.7) g/dL Albumin (4.0-5.0) g/dL 11/02/17 11/02/17 11/02/17 Range/Units 09:56 09:56 22:48 RBC (4.40-5.70) M/uL Hgb (14.0-18.0) gm/dl Hct (42.0-52.0) % MCHC (32-36) g/dl RDW (11.5-14.5) % MPV (7.4-10.4) fl Gran % (47-80) % Lymphocytes % (16-45) % Monocytes % (0-9) % PT 30.2 H (9.5-12.1) SECONDS Sodium (136-145) mmol/L Potassium 3.3 L (3.4-4.5) mmol/L Chloride 91 L (98-107) mmol/L Carbon Dioxide 35.0 H (22-29) mmol/L BUN 46 H (8-23) mg/dL Creatinine 1.7 H (0.7-1.2) mg/dL POC Glucose 133 H (70-110) mg/dL Random Glucose 187 H (74-109) mg/dL Total Protein (6.6-8.7) g/dL Albumin (4.0-5.0) g/dL 11/03/17 11/04/17 11/04/17 Range/Units 06:01 06:10 21:58 RBC (4.40-5.70) M/uL Hgb (14.0-18.0) gm/dl Hct (42.0-52.0) % MCHC (32-36) g/dl RDW (11.5-14.5) % MPV (7.4-10.4) fl Gran % (47-80) % Lymphocytes % (16-45) % Monocytes % (0-9) % PT (9.5-12.1) SECONDS Sodium (136-145) mmol/L Potassium 2.7 L* (3.4-4.5) mmol/L Chloride 91 L (98-107) mmol/L Carbon Dioxide 34.0 H (22-29) mmol/L BUN 45 H (8-23) mg/dL Creatinine 1.5 H (0.7-1.2) mg/dL POC Glucose 123 H 129 H (70-110) mg/dL Random Glucose 112 H (74-109) mg/dL Total Protein 6.1 L (6.6-8.7) g/dL Albumin 3.7 L (4.0-5.0) g/dL 11/05/17 11/05/17 11/05/17 Range/Units 06:28 06:28 22:00 RBC 3.94 L (4.40-5.70) M/uL Hgb 10.7 L (14.0-18.0) gm/dl Hct 35.4 L (42.0-52.0) % MCHC 30.2 L (32-36) g/dl RDW 16.2 H (11.5-14.5) % MPV (7.4-10.4) fl Gran % (47-80) % Lymphocytes % 9.3 L (16-45) % Monocytes % 12.1 H (0-9) % PT (9.5-12.1) SECONDS Sodium (136-145) mmol/L Potassium 2.8 L* (3.4-4.5) mmol/L Chloride 91 L (98-107) mmol/L Carbon Dioxide 35.0 H (22-29) mmol/L BUN 44 H (8-23) mg/dL Creatinine 1.6 H (0.7-1.2) mg/dL POC Glucose 128 H (70-110) mg/dL Random Glucose (74-109) mg/dL Total Protein (6.6-8.7) g/dL Albumin (4.0-5.0) g/dL 11/06/17 11/06/17 11/07/17 Range/Units 06:10 06:28 06:30 RBC 4.26 L (4.40-5.70) M/uL Hgb 11.7 L (14.0-18.0) gm/dl Hct 37.8 L (42.0-52.0) % MCHC 31.0 L (32-36) g/dl RDW 16.3 H (11.5-14.5) % MPV (7.4-10.4) fl Gran % (47-80) % Lymphocytes % 10.0 L (16-45) % Monocytes % 12.5 H (0-9) % PT 21.5 H (9.5-12.1) SECONDS Sodium (136-145) mmol/L Potassium 3.0 L (3.4-4.5) mmol/L Chloride 91 L (98-107) mmol/L Carbon Dioxide 35.0 H (22-29) mmol/L BUN 43 H (8-23) mg/dL Creatinine 1.6 H (0.7-1.2) mg/dL POC Glucose (70-110) mg/dL Random Glucose 112 H (74-109) mg/dL Total Protein (6.6-8.7) g/dL Albumin (4.0-5.0) g/dL 11/07/17 11/07/17 11/07/17 Range/Units 06:30 07:12 16:05 RBC (4.40-5.70) M/uL Hgb (14.0-18.0) gm/dl Hct (42.0-52.0) % MCHC (32-36) g/dl RDW (11.5-14.5) % MPV (7.4-10.4) fl Gran % (47-80) % Lymphocytes % (16-45) % Monocytes % (0-9) % PT (9.5-12.1) SECONDS Sodium (136-145) mmol/L Potassium 2.7 L* (3.4-4.5) mmol/L Chloride 91 L 91 L (98-107) mmol/L Carbon Dioxide 33.0 H 33.0 H (22-29) mmol/L BUN 43 H 46 H (8-23) mg/dL Creatinine 1.6 H 1.7 H (0.7-1.2) mg/dL POC Glucose 213 H (70-110) mg/dL Random Glucose 112 H 111 H (74-109) mg/dL Total Protein 5.8 L (6.6-8.7) g/dL Albumin 3.6 L (4.0-5.0) g/dL 11/08/17 11/08/17 11/09/17 Range/Units 07:59 18:15 08:04 RBC (4.40-5.70) M/uL Hgb (14.0-18.0) gm/dl Hct (42.0-52.0) % MCHC (32-36) g/dl RDW (11.5-14.5) % MPV (7.4-10.4) fl Gran % (47-80) % Lymphocytes % (16-45) % Monocytes % (0-9) % PT (9.5-12.1) SECONDS Sodium 135 L (136-145) mmol/L Potassium (3.4-4.5) mmol/L Chloride 90 L (98-107) mmol/L Carbon Dioxide 32.0 H (22-29) mmol/L BUN 46 H (8-23) mg/dL Creatinine 1.7 H (0.7-1.2) mg/dL POC Glucose 133 H 121 H (70-110) mg/dL Random Glucose 175 H (74-109) mg/dL Total Protein (6.6-8.7) g/dL Albumin (4.0-5.0) g/dL 11/09/17 11/09/17 11/09/17 Range/Units 10:45 10:53 10:53 RBC 4.24 L (4.40-5.70) M/uL Hgb 11.9 L (14.0-18.0) gm/dl Hct 38.0 L (42.0-52.0) % MCHC 31.3 L (32-36) g/dl RDW 16.2 H (11.5-14.5) % MPV 10.5 H (7.4-10.4) fl Gran % (47-80) % Lymphocytes % 12.6 L (16-45) % Monocytes % 13.6 H (0-9) % PT 20.8 H (9.5-12.1) SECONDS Sodium (136-145) mmol/L Potassium 3.2 L (3.4-4.5) mmol/L Chloride 91 L (98-107) mmol/L Carbon Dioxide 31.0 H (22-29) mmol/L BUN 49 H (8-23) mg/dL Creatinine 1.8 H (0.7-1.2) mg/dL POC Glucose (70-110) mg/dL Random Glucose 178 H (74-109) mg/dL Total Protein (6.6-8.7) g/dL Albumin (4.0-5.0) g/dL 11/10/17 11/10/17 Range/Units 06:40 06:40 RBC (4.40-5.70) M/uL Hgb (14.0-18.0) gm/dl Hct (42.0-52.0) % MCHC (32-36) g/dl RDW (11.5-14.5) % MPV (7.4-10.4) fl Gran % (47-80) % Lymphocytes % (16-45) % Monocytes % (0-9) % PT 22.7 H (9.5-12.1) SECONDS Sodium (136-145) mmol/L Potassium (3.4-4.5) mmol/L Chloride 94 L (98-107) mmol/L Carbon Dioxide 31.0 H (22-29) mmol/L BUN 51 H (8-23) mg/dL Creatinine 1.6 H (0.7-1.2) mg/dL POC Glucose (70-110) mg/dL Random Glucose 120 H (74-109) mg/dL Total Protein (6.6-8.7) g/dL Albumin (4.0-5.0) g/dL Condition at Discharge: (1) Good Discharge Medications - Discharge Medications Prescriptions: Atorvastatin Calcium 20 mg PO DAILY #30 tablet Levofloxacin [Levaquin] 750 mg PO DAILY #1 tablet Metolazone [Zaroxolyn] 2.5 mg PO DAILY #30 tablet Metoprolol Succinate [Toprol Xl] 12.5 mg PO DAILY #30 tab.er.24h Metronidazole 500 mg PO TID #4 tablet Home Medications: Ambulatory Orders Ascorbic Acid [Vitamin C] 1,000 mg PO BID 11/02/16 [Last Taken 04/14/17] Ferrous Sulfate 325 mg PO DAILY 11/02/16 [Last Taken 04/14/17] Hydromorphone HCl [Dilaudid] 1 mg PO CONT 11/02/16 [Last Taken 04/15/17] Insulin Detemir [Levemir] 6 unit SQ QHS 11/02/16 [Last Taken 04/14/17] Multivit-Min/FA/Lycopen/Lutein [Centrum Silver Tablet] 1 each PO DAILY 11/02/16 [Last Taken 04/14/17] Oxycodone HCl/Acetaminophen [Percocet 10mg/325mg] 1 - 2 tab PO Q4H PRN 11/02/16 [Last Taken 04/14/17] Ranitidine HCl [Zantac] 150 mg PO DAILY 11/02/16 [Last Taken 04/14/17] Tamsulosin HCl [Flomax] 0.4 mg PO DAILY 11/02/16 [Last Taken 04/14/17] Warfarin Sodium [Coumadin] 3 mg PO DAILY 11/02/16 [Last Taken 09/03/17 17:00] Cholecalciferol (Vitamin D3) [Vitamin D3] 5,000 unit PO DAILY 02/25/17 [Last Taken 04/14/17] Clotrimazole/Betamethasone Dip [Clotrimazole-Betamethasone Crm] 15 gm TP BID [Last Taken 04/14/17] Levalbuterol Tartrate [Xopenex Hfa] 2 puff INH RESP.Q6H PRN 02/25/17 [Last Taken 04/14/17] Sennosides/Docusate Sodium [Senna-Docusate Sodium Tablet] 2 each PO QHS [Last Taken 04/14/17] Fluticasone/Salmeterol [Advair 250-50 Diskus] 1 each IH BID 09/07/17 [Last Taken Unknown] Bifidobacterium Infantis [Align] 4 mg PO DAILY capsule 09/22/17 [Last Taken Unknown] Bumetanide [Bumex] 2 mg PO BIDDIUR tablet 09/22/17 [Last Taken Unknown] Levothyroxine Sodium [Synthroid] 125 mcg PO DAILYTHY tablet 09/22/17 [Last Taken Unknown] Oxycodone HCl/Acetaminophen [Percocet 10mg/325mg] 1 each PO Q4H PRN tablet [Last Taken Unknown] Oxycodone HCl/Acetaminophen [Percocet 5mg/325mg] 1 udtab PO Q6H PRN tablet [Last Taken Unknown] Atorvastatin Calcium 20 mg PO DAILY #30 tablet 11/13/17 [Last Taken Unknown] Levofloxacin [Levaquin] 750 mg PO DAILY #1 tablet 11/13/17 [Last Taken Unknown] Magnesium 400 mg PO DAILY #0 11/13/17 [Last Taken 04/14/17] Metolazone [Zaroxolyn] 2.5 mg PO DAILY #30 tablet 11/13/17 [Last Taken Unknown] Metoprolol Succinate [Toprol Xl] 12.5 mg PO DAILY #30 tab.er.24h 11/13/17 [Last Taken Unknown] Metronidazole 500 mg PO TID #4 tablet 11/13/17 [Last Taken Unknown] Potassium Chloride [Klor-Con] 40 meq PO TIDAC #180 tablet.sa 11/13/17 [Last Taken Unknown] Discharge Plan - Discharge Instructions Activity at Discharge: As Per Physical Therapy Diet at Discharge: Low Salt Diet Instructions: Pleural Effusion (DC), Clostridium Difficile Infection (DC) Additional Instructions: Follow up with cardiology, nephrology, primary care, neurosurgery as scheduled. [facility] will see you at home within 24 hours of your discharge from [place]. They can be reached at [phone]. Resume medications per [facility]'s chart. The only medications that are not included are you antibiotics. Take your last dose of levaquin 750mg by mouth on Friday. This medication is only taken every 48 hours so you will not need to take this tomorrow. Finish flagyl (metronidazole) 500mg by mouth three times daily. Your next dose will be tonight and then tomorrow should be your last day of that medication continue 2000cc fluid diet Quality Measures - Quality Measures Quality Measures: Advance Directives, Documentation of Current Medications in Medical Record, Elder Maltreatment Screen and Follow-Up Plan, Heart Failure, Screening for High Blood Pressure and F/U Documented - Current Medications Quality Measure: Measure #130: Documentation of Current Medications Documentation of Current Medications: <Current Medications Documented/Reviewed> [G8427] - Blood Pressure Screening Quality Measure: Screening for High Blood Pressure and Follow-Up Documented Does Patient Have Any of the Following: Active Dx of HTN Blood Pressure Classification: Normal BP Reading Systolic Measurement: 110 Diastolic Measurement: 68 Screening for High Blood Pressure: Patient Exclusion, Hx of HTN [G9744] - Heart Failure (MARLENY/ARB Therapy) Quality Measure: Heart Failure Left Ventricular Systolic Function: Unknown MARLENY Inhibitor or ARB Therapy for LVSD: Not Eligible - Heart Failure (Beta-shreyas Therapy) Quality Measure: Heart Failure Left Ventricular Systolic Function: Unknown Beta-Shreyas Therapy for LVEF < 40%: Not Eligible - Advance Directives Quality Measure: Measure #47: Care Plan Advance Directives Established: Yes Advance Directives Information Provided To Patient: Yes Advance Directives on File: No Living Will: Yes Power of [place] [employer] Net: Yes Power of [place] [employer] Net Name: Emelyn Advance Care Planning: <Care Plan/Decision Maker Documented; Discussed & Documented> [[id number]] - Elder Abuse Suspicion Index Screening: Elder Abuse Suspicion Index Screening Rely on people for bathing, dressing, shopping, banking, etc: No Prevented from getting food, clothes, medication, etc: No Made to feel shamed or threatened by someone: No Forced to sign papers or use money against will: No Feel afraid, touched in ways not wanted or hurt physically: No Poor eye contact, withdrawn, malnourished, cuts or bruises: No Screening Result: Negative result EASI Reference Information: Tony MAE, Johnnie C, Sonam D, Nely Ford.Development and validation of a tool to assist physicians identification of elder abuse: The Elder Abuse Suspicion Index (EASI ). Journal of Elder Abuse and Neglect, 2008; 20 (3): 276-300. - Elder Maltreatment Screen Quality Measures: Elder Maltreatment Screen and Follow-Up Plan Elder Maltreatment Screen: <Negative, No Follow-Up Plan Required> [F4871]
[2017-11-10] MEDS: GUAIFENESIN 1,200 MG TABLET PO SCH ×3 (08:49→22:38)
[2017-11-10] MEDS: FERROUS SULFATE 325 MG TAB PO SCH ×3 (08:50→18:21)
[2017-11-10] MEDS: METOLAZONE 2.5 MG TABLET PO SCH (08:50)
[2017-11-10] MEDS: POTASSIUM CHLORIDE 20 MEQ TABLET PO SCH ×3 (08:50→18:21)
[2017-11-10] MEDS: BREO (FLUTICASONE/VILANTEROL) 200MCG/25MCG INHALER INH SCH (10:00)
[2017-11-10] MEDS: BUMETANIDE 1 MG TABLET PO SCH ×2 (10:03→18:21)
[2017-11-10] MEDS: ENOXAPARIN 40 MG/0.4 ML SYR SQ SCH (10:04)
[2017-11-10] MEDS: CHOLECALCIFEROL 1,000 UNIT TABLET PO SCH (10:04)
[2017-11-10] MEDS: METOPROLOL SUCC 25 MG TAB.ER PO SCH (10:04)
[2017-11-10] MEDS: MAGNESIUM OXIDE 400 MG TABLET PO SCH (10:04)
[2017-11-10] MEDS: MULTIVITAMINS/MINERALS TABLET PO SCH (10:04)
[2017-11-10] MEDS: ASCORBIC ACID 500 MG TAB PO SCH ×2 (10:05→22:38)
[2017-11-10] MEDS: TAMSULOSIN HCL 0.4 MG CAP.ER.24H PO SCH (10:05)
--- NOTE | 2017-11-10 11:25 | Physical Therapy Tx Note ---
Physical Therapy Tx Note - Treatment Note Tolerated: Good Total Time Spent With Patient: 35 Physical Therapy Tx Note: Detail (Patient states no new complaints. Patient transferred sit to and from stand independently. Patient ambulated 144 feet with wheeled walker SBA x1. Patient performed the following exercises x20-25 reps each: seated hip flexion, LAQ, hamstring curls with green theraband, and seated hip abduction with black theraband. Patient tolerated treatment well. Patient displays some shortness of breath with ambulation. Patient reports short of breath after completing exercises. Patient was left seated in chair with call light within reach.) Physical Therapy Problem List: Detail (1) Cervical and L kary region pain 2) Decreased LE strength 3) Decreased ability to complete sustained physical activity 4) Non ambulatory on stairs) Physical Therapy Goals: 1) The patient will ambulate independently on stairs with use of assistive device. 2) Increase LE strength 1/3 muscle grade to improve stability of gait. 3) The patient will ambulate community distances( 350 feet) with appropriate assistive device. 4) Assess bed mobility. 5) The patient will be independent with pain management techniques. Prognosis: Good Physical Therapy Plan: PT M-F 1 to 2 times a day for LE strengthening, bed mobility and transfer training, and manual therapy techniques to manage pain.
[2017-11-10] MEDS ORDERED: ALBUTEROL SULFATE (0.083%) 2.5 MG/3 ML NEB INH PRN (17:31)
[2017-11-10] MEDS: WARFARIN 1 MG TABLET PO SCH (18:21)
[2017-11-10] MEDS: ATORVASTATIN 20 MG TABLET PO SCH (22:38)
[2017-11-10] MEDS: RANITIDINE HCL 150 MG TABLET PO SCH (22:38)
[2017-11-10] MEDS: LEVEMIR FLEXTOUCH 100 UNIT/ML INSULIN PEN SQ SCH (22:38)
[2017-11-10] MEDS: SENNOSIDES/DOCUSATE SODIUM UD CAPSULE PO SCH (22:40)
[2017-11-11] MEDS: IPRATROPIUM/ALBUTEROL (0.5MG/3MG) NEB INH PRN ×3 (02:35→23:34)
[2017-11-11] MEDS: LEVOTHYROXINE SODIUM 125 MCG TABLET PO SCH (07:22)
[2017-11-11] MEDS: FERROUS SULFATE 325 MG TAB PO SCH ×3 (08:02→17:29)
[2017-11-11] MEDS: POTASSIUM CHLORIDE 20 MEQ TABLET PO SCH ×3 (08:02→17:29)
[2017-11-11] MEDS: METRONIDAZOLE 250 MG TABLET PO SCH ×3 (08:02→23:53)
[2017-11-11 09:25] LABS: BASO % 0.2 % (0-6); EOS % 0.2 % (0-6); HEMATOCRIT 37.5 % (42.0-52.0); HEMOGLOBIN 11.7 gm/dl (14.0-18.0); LYMPH % 14.5 % (16-45); MEAN CELL VOLUME 88.4 fl (81-97); MEAN CORPUSCULAR HGB CONC 31.2 g/dl (32-36); MEAN PLATELET VOLUME 9.7 fl (7.4-10.4); MONO % 13.1 % (0-9); PLATELET COUNT 214 K/uL (130-400); RED BLOOD COUNT 4.24 M/uL (4.40-5.70); WHITE BLOOD COUNT W/O DIFF 4.8 K/uL (4.2-12.2)
[2017-11-11 09:27] LABS: MEAN CORPUSCULAR HEMOGLOBIN 27.5 pg (27-33)
[2017-11-11 09:35] LABS: BILIRUBIN,TOTAL 0.5 mg/dL (0.2-1.0); CREATININE 1.7 mg/dL (0.7-1.2)
[2017-11-11 09:36] LABS: TOTAL PROTEIN 6.4 g/dL (6.6-8.7)
[2017-11-11 09:41] LABS: ALB/GLOB RATIO 1.6 (1.1-1.8); ALBUMIN 3.9 g/dL (4.0-5.0)
[2017-11-11] MEDS: BREO (FLUTICASONE/VILANTEROL) 200MCG/25MCG INHALER INH SCH (09:43)
[2017-11-11] MEDS: METOLAZONE 2.5 MG TABLET PO SCH (10:31)
[2017-11-11] MEDS: BUMETANIDE 1 MG TABLET PO SCH ×2 (10:31→16:28)
[2017-11-11] MEDS: ENOXAPARIN 40 MG/0.4 ML SYR SQ SCH (10:32)
[2017-11-11] MEDS: MULTIVITAMINS/MINERALS TABLET PO SCH (10:32)
[2017-11-11] MEDS: TAMSULOSIN HCL 0.4 MG CAP.ER.24H PO SCH (10:32)
[2017-11-11] MEDS: MAGNESIUM OXIDE 400 MG TABLET PO SCH (10:33)
[2017-11-11] MEDS: GUAIFENESIN 1,200 MG TABLET PO SCH ×2 (10:33→23:17)
[2017-11-11] MEDS: ASCORBIC ACID 500 MG TAB PO SCH ×2 (10:34→23:17)
[2017-11-11] MEDS: METOPROLOL SUCC 25 MG TAB.ER PO SCH (10:34)
[2017-11-11] MEDS: CHOLECALCIFEROL 1,000 UNIT TABLET PO SCH (10:36)
[2017-11-11] MEDS: WARFARIN 1 MG TABLET PO SCH (16:28)
[2017-11-11] MEDS: LEVOFLOXACIN 500 MG TABLET PO SCH (23:15)
[2017-11-11] MEDS: ATORVASTATIN 20 MG TABLET PO SCH (23:17)
[2017-11-11] MEDS: SENNOSIDES/DOCUSATE SODIUM UD CAPSULE PO SCH (23:18)
[2017-11-11] MEDS: RANITIDINE HCL 150 MG TABLET PO SCH (23:18)
[2017-11-11] MEDS: LEVEMIR FLEXTOUCH 100 UNIT/ML INSULIN PEN SQ SCH (23:20)
[2017-11-12] MEDS: LEVOTHYROXINE SODIUM 125 MCG TABLET PO SCH (06:03)
[2017-11-12] MEDS: IPRATROPIUM/ALBUTEROL (0.5MG/3MG) NEB INH PRN ×2 (06:15→23:11)
[2017-11-12] MEDS: FERROUS SULFATE 325 MG TAB PO SCH ×3 (07:48→17:49)
[2017-11-12] MEDS: POTASSIUM CHLORIDE 20 MEQ TABLET PO SCH ×3 (07:48→17:49)
[2017-11-12] MEDS: METRONIDAZOLE 250 MG TABLET PO SCH ×3 (07:50→23:03)
--- NOTE | 2017-11-12 09:38 | Occupational Therapy Tx Note ---
Occupational Therapy Tx Note - Treatment Note Occupational Therapy Treatment Note: Detail (Meet with pt re: OT goals and need for continued therapy. Pt in agreement that he has met all goals for swing bed stay and he feels confident with continuing HEP. He feels home therapy would be beneficial to address IADLs. Recommend home OT after discharge.) Occupational Therapy Problem List: Detail (1) BUE weakness, pain and impaired shd AROM 2) decreased endurance/activity tolerance 3) decreased safety and indepence in self-care ADL's) Occupational Therapy Goals: 1) Perform shower evaluation to determine safety and level of independence. 2) Maximize independence and safety in ADL's. 3) Increase pt's activity tolerance/endurance so pt. will be able to perform typical ADL routine. 4) Improve BUE strength to MMT 4/5. Prognosis: Good Occupational Therapy Plan: Recommend home OT at discharge. Will continue to monitor pts needs until discharge.
[2017-11-12] MEDS: METOLAZONE 2.5 MG TABLET PO SCH (09:45)
[2017-11-12] MEDS: BUMETANIDE 1 MG TABLET PO SCH ×2 (09:45→15:57)
[2017-11-12] MEDS: MAGNESIUM OXIDE 400 MG TABLET PO SCH (09:46)
[2017-11-12] MEDS: MULTIVITAMINS/MINERALS TABLET PO SCH (09:46)
[2017-11-12] MEDS: ENOXAPARIN 40 MG/0.4 ML SYR SQ SCH (09:46)
[2017-11-12] MEDS: TAMSULOSIN HCL 0.4 MG CAP.ER.24H PO SCH (09:46)
[2017-11-12] MEDS: METOPROLOL SUCC 25 MG TAB.ER PO SCH (09:47)
[2017-11-12] MEDS: GUAIFENESIN 1,200 MG TABLET PO SCH ×2 (09:47→23:00)
[2017-11-12] MEDS: ASCORBIC ACID 500 MG TAB PO SCH ×2 (09:48→23:00)
[2017-11-12] MEDS: CHOLECALCIFEROL 1,000 UNIT TABLET PO SCH (09:50)
[2017-11-12] MEDS: BREO (FLUTICASONE/VILANTEROL) 200MCG/25MCG INHALER INH SCH (09:57)
[2017-11-12] MEDS: WARFARIN 1 MG TABLET PO SCH (15:57)
[2017-11-12] MEDS: RANITIDINE HCL 150 MG TABLET PO SCH (23:00)
[2017-11-12] MEDS: ATORVASTATIN 20 MG TABLET PO SCH (23:00)
[2017-11-12] MEDS: LEVEMIR FLEXTOUCH 100 UNIT/ML INSULIN PEN SQ SCH (23:02)
[2017-11-12] MEDS: SENNOSIDES/DOCUSATE SODIUM UD CAPSULE PO SCH (23:09)
[2017-11-13] MEDS: LEVOTHYROXINE SODIUM 125 MCG TABLET PO SCH (06:08)
[2017-11-13] MEDS: FERROUS SULFATE 325 MG TAB PO SCH ×2 (09:13→13:42)
[2017-11-13] MEDS: METOLAZONE 2.5 MG TABLET PO SCH (09:13)
[2017-11-13] MEDS: POTASSIUM CHLORIDE 20 MEQ TABLET PO SCH ×2 (09:13→13:42)
[2017-11-13] MEDS: METRONIDAZOLE 250 MG TABLET PO SCH (09:15)
[2017-11-13] MEDS: BREO (FLUTICASONE/VILANTEROL) 200MCG/25MCG INHALER INH SCH (10:06)
[2017-11-13 10:38] LABS: INR 3.04; PROTHROMBIN TIME (PATIENT) 33.2 SECONDS (9.5-12.1)
[2017-11-13] MEDS: MULTIVITAMINS/MINERALS TABLET PO SCH (11:12)
[2017-11-13] MEDS: TAMSULOSIN HCL 0.4 MG CAP.ER.24H PO SCH (11:12)
[2017-11-13] MEDS: BUMETANIDE 1 MG TABLET PO SCH (11:12)
[2017-11-13] MEDS: METOPROLOL SUCC 25 MG TAB.ER PO SCH (11:13)
[2017-11-13] MEDS: CHOLECALCIFEROL 1,000 UNIT TABLET PO SCH (11:14)
[2017-11-13] MEDS: GUAIFENESIN 1,200 MG TABLET PO SCH (11:14)
[2017-11-13] MEDS: MAGNESIUM OXIDE 400 MG TABLET PO SCH (11:15)
[2017-11-13] MEDS: ASCORBIC ACID 500 MG TAB PO SCH (11:16)
[2017-11-13] MEDS: LEVOFLOXACIN 500 MG TABLET PO SCH (13:36)
[2017-11-13] MEDS: ENOXAPARIN 40 MG/0.4 ML SYR SQ SCH (13:57)
--- NOTE | 2017-11-14 10:00 | Rehab Discharge Summary ---
Patient Information - Patient Information Diagnosis: CHF and General Deconditioning Ordered Treatment: PT Evaluate and Treat Surgery: No History: Detail (The patient was previously an inpatient at [facility] and was transferred to [facility] for medical management. The patient is transferred back to [facility] for Rehabilitation.) Past Medical/Surgical Hx: PAST MEDICAL/SURGICAL HISTORY Past Surgical History pump trial with dilaudid implanted cath ( permanent device in place) Back surgery X5, neck surgery, Hip & shoulder sx ,Bunionectomy,bilat right hip replacement, AICD , abscess rt thigh, septic hip, hematoma rt thigh , revision x2, evac of hematoma post rt hip; lumbar rhizotomy 05/31/15. permanent pain pump 2015 C2-3 lminectomy 09/19 PMH - Respiratory Hx Respiratory Disorders Yes Hx Asthma Yes Hx Bronchitis No Hx Chronic Obstructive Yes Pulmonary Disease (COPD) Hx Dyspnea Yes Hx Pneumonia Yes: 1989, current 2016 Hx Pulmonary Embolism No Hx Sleep Apnea No Hx Tuberculosis No Hx of CPAP No Hx of SOB Yes: CHF PMH - Cardiovascular Hx Cardiovascular Disorders Yes Hx Abnormal EKG Yes Hx Cardiac Catheterization No Hx Chest Pain No Hx Congestive Heart Failure Yes Hx Deep Vein Thrombosis Yes: 20 years ago after being kicked by a cow, current rt ankle 01/2017 Hx Edema Yes: bilat legs recent hospitalization Hx Heart Attack No Hx Hypertension Yes Hx Irregular Heartbeat Yes: hx a fib had cardioversion 1990 & 01/2017 Hx Palpitations No Hx Pacemaker/Defibrillator Yes: 2014 Hx Vascular Disease Yes Hx Transient Ischemic Attacks No (TIA) Comment: hospitalizations states cardiac arrest during past hospitalization 07/18 PMH - Neuro Hx Neurological Disorders No Hx Brain Tumor No Hx Cerebrovascular Accident No Hx Dementia No Hx Dizziness No Hx Headaches No Hx Neuropathy Yes Hx Parkinson's Disease No Hx Seizures No: denies Hx Speech Problem No Hx Syncope No Hx Transient Ischemic Attacks No (TIA) PMH - GI Hx Gastrointestinal Disorders Yes Hx Abdominal Pain No Hx Celiac Disease No Hx Crohn's Disease No Hx Diverticulitis No Hx Gastrointestinal Bleed No Hx Gastroesophageal Reflux No: denies reflux Hx Hepatitis/Jaundice No Hx Hiatal Hernia No Hx Irritable Bowel No Hx Liver Disease No Hx Nausea/Vomiting No Hx Obstructive Bowel No Hx Pancreatitis No Hx Rectal Bleeding No Hx Ulcer No Hx Weight Loss/Weight Gain No PMH - Hx Genitourinary Disorders No Hx Bladder Problem No Hx Kidney Stones No Hx Prostate Problems No: pt states no but on flomax Hx Renal Disease Yes Hx Urinary Tract Infection No PMH - Endocrine Hx Endocrine Disorders Yes Hx Diabetes Yes Hx Thyroid Disease No Hx of NIDDM Yes Hx of IDDM No Comment: checks blood sugars bid (100-140)/ulcers on feet due to poor circulation PMH - Musculoskeletal Hx Musculoskeletal Disorders Yes Hx Arthritis Yes Hx Back Injury Yes Hx Fibromyalgia No Hx Gout No Hx Musculoskeletal Disease Yes Hx Osteoporosis No Comment: chronic pain; hx septic hip in past PMH - Psych Hx Psychiatric Problems No Hx Anxiety No Hx Behavior Problems No Hx Depression No Hx Emotional Abuse No Hx Sexual Abuse No Hx Suicide Attempt No Major Depressive Episode No Feelings of Hopelessness No PMH - Hematology/Oncology Hx Hematology/Oncology Yes Disorders Hx Anemia Yes Hx Blood Disorders No Hx Bruising Yes Hx Cancer Yes: skin Hx Clotting Problems Yes Hx Sickle Cell Disease No Hx Unexplained Bleeding No Hx Blood Transfusion Reaction No Comment: pt to bridge with Lovenox 4 days preop Premorbid Status: Detail (Prior to recent cervical spine surgery the patient was functional , ambulatory with 2 canes. Pt. was independent with all self- care I/ADL's, including driving, dressing, bathing, and meal prep. Pt. has a hx of multiple sx of BUE, back, and neck but pt. was able to perform functional activities with modified independence. Pt. reported he stood in shower to bathe. ) Social History: Detail (The patient oves in a one story home with 3 steps at the enterance and one handrail. The patient has two bathrooms, one with a shower stall, HH shower head, and elevated toilet seat with grab bars, and one with a tub/shower combination and standard toilet with grab bars (pt states he doesn't use). Pt. reported he lived at home alone, and has a daughter that is able to come over to help occasionally if needed.) Precautions: [place], Cardiac (fluid restrictions), Other (contact isolation) Subjective Information - Subjective Information Per Patient (The patient continued to complain of R groin region pain. The patient had minimal to no complaints of cervical and upper trapezius pain. The patient did not rate his groin pain using 0-10 pain scale.) Objective Data - Mental Status Patient Orientation: Oriented x3 - Visual Perception Appears within normal limits for therapeutic activities - ROM Within normal limits (LE AROM was WNL. Cervical AROM was moderately limited.) - Strength/Tone Not within normal limits (The patient's LE strength was as follows R hip flexors 3/5, hip abductors 4-/5 all other hip musculature and knee musculature 4 /5, ankle musculature 4+/5, L LE strength was generally 4+ to 4/5.) - Bed Mobility Independent (The patient was independent with supine to and from sit transfer and scooting up in bed.) - Transfers Independent (The patient was independent with sit to stand and toilet transfer.) - Balance Balance Sitting: Good Balance Standing: Good - Gait Detail (The patient ambulated with wheeled walker a distance of 150 feet plus independently. The patient also ambulated with 2 canes a distance of 100 feet independently. The patient ambulated on 3 steps with use of railing with supervision for safety. The patient was home for 2 visits during hospital stay and denied any difficulty with mobility.) Therapy Assessment - Therapy Assessment Detail (The patient was independent with all mobility and ambulation. The patient was independent with HEP of LE strengthening exercises. The patient is to receive Home Care services.) Patient Education - Patient Education Teaching Topic: Exercise/Activity (The patient was independent with HEP of LE exercises.) Problem List - Problem List Physical Therapy Problem List: Detail (1) Cervical and L kary region pain 2) Decreased LE strength 3) Decreased ability to complete sustained physical activity 4) Non ambulatory on stairs) Occupational Therapy Problem List: Detail (1) BUE weakness, pain and impaired shd AROM 2) decreased endurance/activity tolerance 3) decreased safety and indepence in self-care ADL's) Goals - Goals Physical Therapy Goals: GOALS MET: 1) The patient will ambulate independently on stairs with use of assistive device. 2) Increase LE strength 1/3 muscle grade to improve stability of gait. 4) Assess bed mobility. 5) The patient will be independent with pain management techniques. GOAL PARTIALLY MET: 3) The patient will ambulate community distances(350 feet) with appropriate assistive device. Occupational Therapy Goals: 1) Perform shower evaluation to determine safety and level of independence. 2) Maximize independence and safety in ADL's. 3) Increase pt's activity tolerance/endurance so pt. will be able to perform typical ADL routine. 4) Improve BUE strength to MMT 4/5. Plan - Plan Physical Therapy Plan: Patient discharged from [facility] to home. The patient is to receive Home Care Services. Occupational Therapy Plan: Recommend home OT at discharge. Will continue to monitor pts needs until discharge.
--- NOTE | 2017-11-14 10:37 | Rehab Discharge Summary ---
Patient Information - Patient Information Diagnosis: CHF and General Deconditioning Ordered Treatment: OT Evaluate and Treat Surgery: No History: Detail (The patient was previously an inpatient at [facility] and was transferred to [facility] for medical management. The patient is transferred back to [facility] for Rehabilitation.) Past Medical/Surgical Hx: PAST MEDICAL/SURGICAL HISTORY Past Surgical History pump trial with dilaudid implanted cath ( permanent device in place) Back surgery X5, neck surgery, Hip & shoulder sx ,Bunionectomy,bilat right hip replacement, AICD , abscess rt thigh, septic hip, hematoma rt thigh , revision x2, evac of hematoma post rt hip; lumbar rhizotomy 05/31/15. permanent pain pump 2015 C2-3 lminectomy 09/19 PMH - Respiratory Hx Respiratory Disorders Yes Hx Asthma Yes Hx Bronchitis No Hx Chronic Obstructive Yes Pulmonary Disease (COPD) Hx Dyspnea Yes Hx Pneumonia Yes: 1989, current 2016 Hx Pulmonary Embolism No Hx Sleep Apnea No Hx Tuberculosis No Hx of CPAP No Hx of SOB Yes: CHF PMH - Cardiovascular Hx Cardiovascular Disorders Yes Hx Abnormal EKG Yes Hx Cardiac Catheterization No Hx Chest Pain No Hx Congestive Heart Failure Yes Hx Deep Vein Thrombosis Yes: 20 years ago after being kicked by a cow, current rt ankle 01/2017 Hx Edema Yes: bilat legs recent hospitalization Hx Heart Attack No Hx Hypertension Yes Hx Irregular Heartbeat Yes: hx a fib had cardioversion 1990 & 01/2017 Hx Palpitations No Hx Pacemaker/Defibrillator Yes: 2014 Hx Vascular Disease Yes Hx Transient Ischemic Attacks No (TIA) Comment: hospitalizations states cardiac arrest during past hospitalization 07/18 PMH - Neuro Hx Neurological Disorders No Hx Brain Tumor No Hx Cerebrovascular Accident No Hx Dementia No Hx Dizziness No Hx Headaches No Hx Neuropathy Yes Hx Parkinson's Disease No Hx Seizures No: denies Hx Speech Problem No Hx Syncope No Hx Transient Ischemic Attacks No (TIA) PMH - GI Hx Gastrointestinal Disorders Yes Hx Abdominal Pain No Hx Celiac Disease No Hx Crohn's Disease No Hx Diverticulitis No Hx Gastrointestinal Bleed No Hx Gastroesophageal Reflux No: denies reflux Hx Hepatitis/Jaundice No Hx Hiatal Hernia No Hx Irritable Bowel No Hx Liver Disease No Hx Nausea/Vomiting No Hx Obstructive Bowel No Hx Pancreatitis No Hx Rectal Bleeding No Hx Ulcer No Hx Weight Loss/Weight Gain No PMH - Hx Genitourinary Disorders No Hx Bladder Problem No Hx Kidney Stones No Hx Prostate Problems No: pt states no but on flomax Hx Renal Disease Yes Hx Urinary Tract Infection No PMH - Endocrine Hx Endocrine Disorders Yes Hx Diabetes Yes Hx Thyroid Disease No Hx of NIDDM Yes Hx of IDDM No Comment: checks blood sugars bid (100-140)/ulcers on feet due to poor circulation PMH - Musculoskeletal Hx Musculoskeletal Disorders Yes Hx Arthritis Yes Hx Back Injury Yes Hx Fibromyalgia No Hx Gout No Hx Musculoskeletal Disease Yes Hx Osteoporosis No Comment: chronic pain; hx septic hip in past PMH - Psych Hx Psychiatric Problems No Hx Anxiety No Hx Behavior Problems No Hx Depression No Hx Emotional Abuse No Hx Sexual Abuse No Hx Suicide Attempt No Major Depressive Episode No Feelings of Hopelessness No PMH - Hematology/Oncology Hx Hematology/Oncology Yes Disorders Hx Anemia Yes Hx Blood Disorders No Hx Bruising Yes Hx Cancer Yes: skin Hx Clotting Problems Yes Hx Sickle Cell Disease No Hx Unexplained Bleeding No Hx Blood Transfusion Reaction No Comment: pt to bridge with Lovenox 4 days preop Premorbid Status: Detail (Prior to recent cervical spine surgery the patient was functional , ambulatory with 2 canes. Pt. was independent with all self- care I/ADL's, including driving, dressing, bathing, and meal prep. Pt. has a hx of multiple sx of BUE, back, and neck but pt. was able to perform functional activities with modified independence. Pt. reported he stood in shower to bathe. ) Social History: Detail (The patient oves in a one story home with 3 steps at the entrance and one handrail. The patient has two bathrooms, one with a shower stall, HH shower head, and elevated toilet seat with grab bars, and one with a tub/shower combination and standard toilet with grab bars (pt states he doesn't use). Pt. reported he lived at home alone, and has a daughter that is able to come over to help occasionally if needed.) Precautions: [place], Cardiac (fluid restrictions), Other (contact isolation) Subjective Information - Subjective Information Per Patient Objective Data - Pain Pain Present: Yes (Continues with neck, upper back pain) - Mental Status Patient Orientation: Oriented x3 - Visual Perception Appears within normal limits for therapeutic activities - ROM Not within normal limits (Ozzy shoulder flexion continues to be limited to approx. 110 degrees although functional for all ADL/IADLs, ozzy elbow, wrist and hand WNL) - Strength/Tone Within normal limits (Ozzy UE strength 4+/5 throughout within AROM limitations.) - Coordination Appears within normal limits for therapeutic activities - Bed Mobility Independent - Transfers Independent - Balance Balance Sitting: Good Balance Standing: Good - Sensation Intact - Gait Detail (Ambulating household distances with 2 canes Indly.) - ADL's/IADL's Detail (Ind with showering and total body dressing with exception of slippers. Pt has a sock aid but prefers not to stretch out his slippers with the sock aid. ) Therapy Assessment - Therapy Assessment Detail (Pt is safe and Ind with all self cares and UE strengthening/HEP.) Problem List - Problem List Physical Therapy Problem List: Detail (1) Cervical and L kary region pain 2) Decreased LE strength 3) Decreased ability to complete sustained physical activity 4) Non ambulatory on stairs) Occupational Therapy Problem List: Detail (1) BUE weakness, pain and impaired shd AROM 2) decreased endurance/activity tolerance 3) decreased safety and indepence in self-care ADL's) Goals - Goals Physical Therapy Goals: 1) The patient will ambulate independently on stairs with use of assistive device. 2) Increase LE strength 1/3 muscle grade to improve stability of gait. 3) The patient will ambulate community distances( 350 feet) with appropriate assistive device. 4) Assess bed mobility. 5) The patient will be independent with pain management techniques. Occupational Therapy Goals: Goals Met: 1) Perform shower evaluation to determine safety and level of independence. 2) Maximize independence and safety in ADL's. 3) Increase pt's activity tolerance/endurance so pt. will be able to perform typical ADL routine. 4) Improve BUE strength to MMT 4/5. Prognosis - Prognosis Good Plan - Plan Physical Therapy Plan: PT M-F 1 to 2 times a day for LE strengthening, bed mobility and transfer training, and manual therapy techniques to manage pain. Occupational Therapy Plan: Pt discharged home with home OT/PT.
== END 2017-11-13 16:00 | disposition home health service (06) | DRG 947 ==
LOC: UNDOADMIN 10-16 17:06 → MEDSURG 10-16 17:06
PROVIDERS: ADMIT Internal Medicine; ATTEND Internal Medicine
DX: R53.81 Other malaise (principal); J18.9 Pneumonia, unspecified organism; I50.32 Chronic diastolic (congestive) heart failure; N18.3 Chronic kidney disease, stage 3 (moderate); E87.6 Hypokalemia; R60.0 Localized edema; E11.9 Type 2 diabetes mellitus without complications; M50.30 Other cervical disc degeneration, unspecified cervical region; I10 Essential (primary) hypertension; E03.9 Hypothyroidism, unspecified; I48.2 Chronic atrial fibrillation; J44.9 Chronic obstructive pulmonary disease, unspecified; J45.909 Unspecified asthma, uncomplicated; D64.9 Anemia, unspecified; R19.7 Diarrhea, unspecified; B96.7 Clostridium perfringens [C. perfringens] as the cause of diseases classified elsewhere; T50.2X5A Adverse effect of carbonic-anhydrase inhibitors, benzothiadiazides and other diuretics, initial encounter; Z79.01 Long term (current) use of anticoagulants; Z95.810 Presence of automatic (implantable) cardiac defibrillator; Z86.74 Personal history of sudden cardiac arrest; Z86.718 Personal history of other venous thrombosis and embolism
CPT/HCPCS: 36416; 71046; 74022; 80048; 80053; 82948; 83735; 84443; 85025; 85610; 87070; 87427; 87493; 89055; 94640; 94667; 94668; 94760; 94761; 97110; 97116; 97140; 97165; 97530; 97535; 99306; 99309; 99316; J1650; J3480; J7040

== ENCOUNTER 2018-01-05 12:04 | Inpatient (IN) | payer MEDICARE, OTHER ==
[2018-01-05] MEDS ORDERED: POLYETHYLENE GLY 17 GM PACKET PO PRN (15:45)
[2018-01-05] MEDS ORDERED: ONDANSETRON 4 MG ODT TABLET SL PRN (15:45)
[2018-01-05] MEDS ORDERED: TRAMADOL HCL 50 MG TABLET PO PRN ×2 (15:46)
[2018-01-05] MEDS: FAMOTIDINE 20MG TABLET PO SCH (22:10)
[2018-01-05] MEDS: POTASSIUM CHLORIDE 20 MEQ TABLET PO SCH (22:10)
[2018-01-05] MEDS: ATORVASTATIN 20 MG TABLET PO SCH (22:10)
[2018-01-05] MEDS: ASCORBIC ACID 500 MG TAB PO SCH (22:10)
[2018-01-05] MEDS: LEVEMIR FLEXTOUCH 100 UNIT/ML INSULIN PEN SQ SCH (22:10)
[2018-01-05] MEDS: SENNOSIDES/DOCUSATE SODIUM UD CAPSULE PO SCH (22:15)
[2018-01-06] MEDS: LEVOTHYROXINE SODIUM 125 MCG TABLET PO SCH (06:54)
[2018-01-06] MEDS: FERROUS SULFATE 325 MG TAB PO SCH ×3 (07:49→18:12)
[2018-01-06] MEDS: BREO (FLUTICASONE/VILANTEROL) 200MCG/25MCG INHALER INH SCH (09:50)
[2018-01-06] MEDS: BUMETANIDE 1 MG TABLET PO SCH ×2 (10:18→16:15)
[2018-01-06] MEDS: POTASSIUM CHLORIDE 20 MEQ TABLET PO SCH ×3 (10:19→21:02)
[2018-01-06] MEDS: TAMSULOSIN HCL 0.4 MG CAP.ER.24H PO SCH (10:19)
[2018-01-06] MEDS: MAGNESIUM OXIDE 400 MG TABLET PO SCH (10:19)
[2018-01-06] MEDS: MULTIVITAMINS/MINERALS TABLET PO SCH (10:19)
[2018-01-06] MEDS: AMIODARONE HCL 200 MG TABLET PO SCH (10:20)
[2018-01-06] MEDS: MELOXICAM 7.5 MG TABLET PO SCH (10:20)
[2018-01-06] MEDS: METOPROLOL SUCC 25 MG TAB.ER PO SCH (10:20)
[2018-01-06] MEDS: CHOLECALCIFEROL 1,000 UNIT TABLET PO SCH (10:21)
[2018-01-06] MEDS: ASCORBIC ACID 500 MG TAB PO SCH ×2 (10:21→21:02)
[2018-01-06] MEDS: METOLAZONE 2.5 MG TABLET PO SCH (10:22)
[2018-01-06] MEDS: VANCOMYCIN HCL 1 GM VIAL PO SCH ×3 (10:23→23:32)
--- NOTE | 2018-01-06 12:53 | History & Physical ---
History of Present Illness - Date Date of Service for History & Physical: 01/06/18 - History of Present Illness Admitting Diagnosis: Multiple rehab services s/p SONG History of Present Illness: Mr. Simms is a 77 y/o male patient well known to this service with multiple comorbidities resulting in a protracted hospital course, which include diastolic heart failure, non-rheumatic mitral valve disease, diabetes mellitus II, chronic atrial fibrillation, hypothyroidism amongst other things. He was admitted to swing bed here at [facility] on 01/05/18 s/p right total hip arthroplasty on 01/02/[address] Velazquez. 01/06/18 1100: Pt. is sitting up in his chair. He states he is doing well and his pain has been well-controlled with mobic 15mg daily and prn percocet. He was evaluated by PT/OT last evening and began treatment today. He has been up independently with his walker. His stool was positive for c. diff at [facility] ( resulted just today), he will be started on PO vanco- pharmacy to dose. Plan to continue PT/OT for 10-14 days here. General - Cognitive Patterns Speech: Normal Thought Process: Intact Thought Content: Normal Orientation: Oriented x3, Person, Place, Time - Communication Preferred Language?: [place] Records Auditor Required: No Level of Education: High School, College Preferred Method of Learning: Doing, Reading Comprehension Ability: No Impairment Able to Read: Yes Able to Write: Yes Select best description of speech pattern: Clear Speech Ability to express ideas and wants: Understood Understanding verbal content: Understands - Mood and Behavior Patterns Appearance: Well Groomed Mood: Normal Attitude: Cooperative Motor Activity: Calm Affect: Appropriate Hallucinations: Denies - Psychosocial Well-Being Usual Living Arrangement: Alone - Physical Functioning Activity Level: Up as tolerated Turning: Self ad trista ROM Ability: Moves all extremities Assistive Devices: Walker Ambulation Ability: Needs Assist Bed Mobility: Independent Transfer Ability: Needs Assist Bathing Ability: Needs Assist Personal Hygiene: Independent Dressing Ability: Independent Eating (Feeding) Ability: Independent Toileting Ability: Independent Administer Own Medication: Needs Assist - Continence Bowel Pattern: No Bowel Movement Bladder Pattern: Normal - Dental Status Unable to examine: No Broken or loosely fitting full or partial dentures: No No natural teeth or tooth fragment(s) (edentulous): No Abnormal mouth tissue (ulcers, masses, oral lesions, etc.): No Obvious or likely cavity or broken natural teeth: No Inflamed or bleeding gums or loose natural teeth: No Mouth/facial pain, discomfort or difficulty chewing: No - Nutrition Screening Poor oral intake > 1 week: No Unplanned weight loss in specified time frame: No Nutrition Support via tube feedings or parenteral nutrition: No Pressure Ulcer: Yes Significantly underweight define as BMI <18.5 kg/m2: No Albumin <2.5mg/dL: No Persistent nausea/vomiting/diarrhea >3 days: No Difficulty chewing/swallowing/mouth sores: No Admitting Diagnosis: Yes Nutrition Risk Score: High Risk Review of Systems Reviewed: No additional complaints except as noted below Constitutional: Reports: As per HPI. Denies: Chills, Fever, Malaise, Night sweats, Weakness, Weight change Eyes: Reports: As per HPI. Denies: Eye discharge, Eye pain, Photophobia, Vision change ENT: Reports: As per HPI. Denies: Congestion, Dental pain, Ear pain, Epistaxis , Hearing loss, Throat pain Respiratory: Reports: As per HPI. Denies: Cough, Dyspnea, Hemoptysis, Stridor, Wheezes Cardiovascular: Reports: As per HPI. Denies: Arrhythmia, Chest pain, Dyspnea on exertion, Edema, Murmurs, Orthopnea, Palpitations, Paroxysmal nocturnal dyspnea, Rheumatic Fever, Syncope Endocrine: Reports: As per HPI. Denies: Fatigue, Heat or cold intolerance, Polydipsia, Polyuria Gastrointestinal: Reports: As per HPI. Denies: Abdominal pain, Constipation, Diarrhea, Hematemesis, Hematochezia, Melena, Nausea, Vomiting Genitourinary: Reports: As per HPI. Denies: Dysuria, Frequency, Hematuria, Incontinence, Retention, Testicular pain, Testicular mass, Urgency Musculoskeletal: Reports: Other (Post-op R THR). Denies: Arthralgia, Back pain , Gout, Joint swelling, Myalgia, Neck pain Skin: Reports: As per HPI, Other (Right hip drsg C/D/I). Denies: Bruising, Change in color, Change in hair/nails, Lesions, Pruritus, Rash Neurological: Reports: As per HPI. Denies: Abnormal gait, Confusion, Headache, Numbness, Paresthesias, Seizure, Tingling, Tremors, Vertigo, Weakness Psychiatric: Reports: As per HPI. Denies: Anxiety, Auditory hallucinations, Depression, Homicidal thoughts, Suicidal thoughts, Visual hallucinations Hematological/Lymphatic: Reports: As per HPI. Denies: Anemia, Blood Clots, Easy bleeding, Easy bruising, Swollen glands Past Medical History - SOCIAL HISTORY Smoking Status: Former smoker Alcohol Use: None Drug use: None - SURGICAL HISTORY Past Surgical History: pump trial with dilaudid implanted cath (permanent device in place). Back surgery X5, neck surgery, Hip & shoulder sx,Bunionectomy ,bilat right hip replacement, AICD, abscess rt thigh, septic hip, hematoma rt thigh, revision x2, evac of hematoma post rt hip;. lumbar rhizotomy 05/31/15. permanent pain pump 2015. C2-3 lminectomy 09/19. rt hip arthroplasty 01/18 - RESPIRATORY Hx Respiratory Disorders: Yes Hx Asthma: Yes Hx Bronchitis: No Hx COPD: Yes Hx Dyspnea: Yes Hx Pneumonia: Yes (1989, current 2016) Hx Pulmonary Embolism: No Hx Sleep Apnea: No Hx Tuberculosis: No Hx of CPAP: No - CARDIOVASCULAR Hx Cardio Disorders: Yes Hx Abnormal EKG: Yes Hx Cardiac Cath: No Hx Chest Pain: No Hx CHF: Yes Hx Deep Vein Thrombosis: Yes (20 years ago after being kicked by a cow, current rt ankle 01/2017) Hx Edema: Yes (bilat legs recent hospitalization) Hx Heart Attack: No Hx Hypertension: Yes Hx Irregular Heartbeat: Yes (hx a fib had cardioversion 1990 & 01/2017) Hx Palpitations: No Hx Pacemaker/Defib: Yes (2014) Hx Vascular Disease: Yes Comment:: hospitalizations states cardiac arrest during past hospitalization - NEURO Hx Neuro Disorders: No Hx Seizures: No (denies) - GI Hx GI Disorders: No Hx Abdominal Pain: No Hx Celiac Disease: No Hx Crohn's Disease: No Hx Diverticulitis: No Hx GI Bleed: No Hx Reflux: No (denies reflux) Hx Hepatitis/Jaundice: No Hx Hiatal Hernia: No Hx Irritable Bowel: No Hx Liver Disease: No Hx Nausea/Vomiting: No Hx Obstructive Bowel: No Hx Pancreatitis: No Hx Rectal Bleeding: No Hx Ulcer: No Hx Wt Loss/Wt Gain: No Hx of Polyps: No - Hx Genitourinary Disorders: Yes Hx Bladder Problem: No Hx Kidney Stones: No Hx Prostate Problems: No (pt states no but on flomax) Hx Renal Disease: Yes Hx UTI: No - ENDOCRINE Hx Endocrine Disorders: Yes Hx Diabetes: Yes - MUSCULOSKELETAL Hx Musculoskeletal Disorders: Yes Hx Arthritis: Yes Hx Back Injury: Yes Hx Fibromyalgia: No Hx Gout: No Hx Musculoskeletal Disease: Yes Hx Osteoporosis: No Comment:: chronic pain; hx septic hip in past - PSYCH Hx Psych Problems: No Hx Anxiety: No Hx Behavior Problems: No Hx Depression: No Hx Emotional Abuse: No Hx Sexual Abuse: No Hx Suicide Attempt: No - HEMATOLOGY/ONCOLOGY Hx Hematology/Oncology Disorders: Yes Hx Anemia: Yes Hx Blood Disorders: No Hx Bruising: Yes Hx Cancer: Yes (skin) Hx Clotting Problems: Yes Hx Sickle Cell Disease: No Hx Unexplained Bleeding: No Hx Blood Transfusions: Yes (with hip surgery, and hematoma) Hx Blood Transfusion Reaction: No Family Medical History Any Significant Family History?: Yes Hx Cancer: Father, Mother Hx Dementia: Mother *Dementia Comment: mother alzheimers H&P Meds/Allergies - Allergies Allergies: Allergies Allergy/AdvReac Type Severity Reaction Status Date / Time onion Allergy Intermediate NAUSEA Verified 01/30/16 14:13 - Home Medications Previous Rx's Medication Instructions Recorded Bifidobacterium Infantis [Align] 4 mg PO DAILY capsule 09/22/17 Bumetanide [Bumex] 2 mg PO BIDDIUR tablet 09/22/17 Levothyroxine Sodium [Synthroid] 125 mcg PO DAILYTHY tablet 09/22/17 Oxycodone HCl/Acetaminophen 1 each PO Q4H PRN tablet 09/22/17 [Percocet 10mg/325mg] Oxycodone HCl/Acetaminophen 1 udtab PO Q6H PRN tablet 09/22/17 [Percocet 5mg/325mg] Atorvastatin Calcium 20 mg PO DAILY #30 tablet 11/13/17 Levofloxacin [Levaquin] 750 mg PO DAILY #1 tablet 11/13/17 Magnesium 400 mg PO DAILY #0 11/13/17 Metolazone [Zaroxolyn] 2.5 mg PO DAILY #30 tablet 11/13/17 Metoprolol Succinate [Toprol Xl] 12.5 mg PO DAILY #30 tab.er.24h 11/13/17 Metronidazole 500 mg PO TID #4 tablet 11/13/17 Potassium Chloride [Klor-Con] 40 meq PO TIDAC #180 tablet.sa 11/13/17 - Active Medications Active Medications: Current Medications Amiodarone HCl (Pacerone) 200 mg PO DAILY [facility] Last Admin: 01/06/18 10:20 Dose: 200 mg Ascorbic Acid (Vitamin C) 500 mg PO BID [facility] Last Admin: 01/06/18 10:21 Dose: 500 mg Atorvastatin Calcium (Lipitor) 20 mg PO QHS [facility] Last Admin: 01/05/18 22:10 Dose: 20 mg Bumetanide (Bumex) 2 mg PO BIDDIUR [facility] Last Admin: 01/06/18 10:18 Dose: 2 mg Famotidine (Pepcid) 20 mg PO QHS [facility] Last Admin: 01/05/18 22:10 Dose: 20 mg Ferrous Sulfate (Iron) 325 mg PO WMEALS [facility] Last Admin: 01/06/18 12:21 Dose: 325 mg Insulin Detemir (Levemir Flextouch) 6 unit SQ QHS [facility] Last Admin: 01/05/18 22:10 Dose: 6 unit [facility]: 01/06/18 06:54 Dose: 125 mcg Magnesium Oxide (Mag Ox) 400 mg PO DAILY [facility] Last Admin: 01/06/18 10:19 Dose: 400 mg Meloxicam (Mobic) 15 mg PO DAILY [facility] Last Admin: 01/06/18 10:20 Dose: 15 mg Metolazone (Zaroxolyn) 2.5 mg PO DAILY [facility] Last Admin: 01/06/18 10:22 Dose: 2.5 mg Metoprolol Succinate (Toprol Xl) 12.5 mg PO DAILY [facility] Last Admin: 01/06/18 10:20 Dose: 12.5 mg Multivitamins/Minerals (Centrum) 1 tab PO DAILY [facility] Last Admin: 01/06/18 10:19 Dose: 1 tab Ondansetron HCl (Zofran Odt) 4 mg SL Q6H PRN PRN Reason: NAUSEA Oxycodone/Acetaminophen (Percocet 10-325 Mg Tablet) 1 each PO Q4H PRN PRN Reason: MODERATE PAIN Oxycodone/Acetaminophen (Percocet 10-325 Mg Tablet) 2 each PO Q4H PRN PRN Reason: SEVERE PAIN Polyethylene Glycol (Miralax) 17 gm PO QHS PRN PRN Reason: CONSTIPATION Potassium Chloride (Klor-Con) 20 meq PO TID [facility] Last Admin: 01/06/18 10:19 Dose: 20 meq Senna/Docusate Sodium (Senna Plus) 2 each PO QHS [facility] Last Admin: 01/05/18 22:15 Dose: Not Given Tamsulosin HCl (Flomax) 0.4 mg PO DAILY [facility] Last Admin: 01/06/18 10:19 Dose: 0.4 mg Tramadol HCl (Ultram) 50 mg PO Q6H PRN PRN Reason: MILD PAIN Tramadol HCl (Ultram) 100 mg PO Q6H PRN PRN Reason: MILD PAIN IF 1 TAB INEFFECTIVE Vancomycin HCl (Vanco) 125 mg PO Q6HR [facility] Stop: 01/16/18 06:01 Last Admin: 01/06/18 10:23 Dose: 125 mg Vitamin D (Vitamin D3) 5,000 unit PO DAILY [facility] Last Admin: 01/06/18 10:21 Dose: 5,000 unit Physical Exam - Vital Signs Vital Signs: Vital Signs - Last 24 Hrs Temp Pulse Pulse Resp BP BP Pulse Ox 01/06/18 10:19 83 17 95 01/06/18 08:00 97.7 F 84 18 97/58 94 L 01/05/18 19:23 98.1 F 83 18 118/64 96 - General General Appearance: Alert, Oriented x3, Cooperative, No acute distress - Head Head exam: Normal inspection - Respiratory Respiratory exam: Normal lung sounds bilaterally. negative: Respiratory distress - Cardiovascular Cardiovascular Exam: Regular rate, Normal rhythm, Normal heart sounds - GI/Abdominal GI/Abdominal exam: Soft, Normal bowel sounds. negative: Tenderness - Rectal Rectal exam: Deferred - exam: Deferred - Extremities Extremities exam: Normal inspection, Full ROM, Normal capillary refill, Other (2 + LE pitting edema, no reddness, no tenderness with palpation. ). negative: Tenderness - Neurological Neurological exam: Alert, Normal gait, Oriented X3, Reflexes normal - Psychiatric Psychiatric exam: Normal affect, Normal mood - Skin Skin exam: Other (Right hip drsg- clean, dry, intact) H&P Results - Labs Labs Last 24 Hours: Laboratory Results - last 24 hr 01/05/18 01/06/18 Unknown 08:20 POC Glucose 98 C. difficile Ag & Toxin Detected H Discharge Potential - Discharge Needs Community Services Used Prior to Admission: Physical Therapy, Transportation Patient Discharge Plan Description: Return Home Community Services Needed at Discharge: Transportation Plan - Swing Bed Certification Initial Certification Due: 01/05/18 14 Day Re-Cert Due: 01/19/18 44 Day Re-Cert Due: 02/18/18 74 Day Re-Cert Due: 03/20/18 - Detailed Diagnosis and Plan (1) Status post revision of total hip Current Visit: No Status: Acute Base Code: Z96.649 - PRESENCE OF UNSPECIFIED ARTIFICIAL HIP JOINT Comment: 01/06/18: s/p right total hip revision arthroplasty on 01/02/18. Pain has remain controlled with percocet q4h prn and mobic 15mg daily. Dressing clean, dry and intact. f/u with Dr. Velazquez. Coumadin 5mg for anticoagulation, dosing per pharmacy. PT/OT eval and treatment while swing bed status. (2) Clostridium difficile infection Current Visit: Yes Status: Acute Base Code: B96.89 - OTH BACTERIAL AGENTS THE CAUSE OF DISEASES CLASSD [id number] Comment: 01/06/18- Pos c. diff from [facility] stool culture, pt. did have diarrhea while at [facility], now resolved. Will treat with Vanco PO (dosing per pharmacy). (3) Full code status Current Visit: No Status: Acute Base Code: Z78.9 - OTHER SPECIFIED HEALTH STATUS Comment: 01/06/18 Full code status
--- NOTE | 2018-01-06 12:55 | Swing Bed Certification/Recert ---
Initial Certification Due: 01/05/18 14 Day Re-Cert Due: 01/19/18 44 Day Re-Cert Due: 02/18/18 74 Day Re-Cert Due: 03/20/18 CERTIFICATION 3 CERTIFICATION OF PATIENT ADMISSION Required at time of admission. Due: 01/05/18 I certify that SNF services are required to be given on an inpatient basis because of the above named patient's need for [facility] care on a continuing basis for the condition(s) for which he/she was receiving inpatient hospital services prior to his/her transfer to the SNF. The patient's current needs for skilled care includes: [PT/OT eval and treatment secondary to right total hip arthroplasty on 01/02/18] Zhane Vences, N.P. 01/06/18
--- NOTE | 2018-01-06 13:41 | Rehab Evaluation ---
Patient Information - Patient Information Diagnosis: Multiple Medical Conditions s/p R SONG Ordered Treatment: PT Evaluate and Treat Surgery: Yes (R SONG) Past Medical/Surgical Hx: PAST MEDICAL/SURGICAL HISTORY Past Surgical History pump trial with dilaudid implanted cath ( permanent device in place) Back surgery X5, neck surgery, Hip & shoulder sx ,Bunionectomy,bilat right hip replacement, AICD , abscess rt thigh, septic hip, hematoma rt thigh , revision x2, evac of hematoma post rt hip; lumbar rhizotomy 05/31/15. permanent pain pump 2015 C2-3 lminectomy 09/19 rt hip arthroplasty 01/18 PMH - Respiratory Hx Respiratory Disorders Yes Hx Asthma Yes Hx Bronchitis No Hx Chronic Obstructive Yes Pulmonary Disease (COPD) Hx Dyspnea Yes Hx Pneumonia Yes: 1989, current 2016 Hx Pulmonary Embolism No Hx Sleep Apnea No Hx Tuberculosis No Hx of CPAP No Hx of SOB Yes: CHF PMH - Cardiovascular Hx Cardiovascular Disorders Yes Hx Abnormal EKG Yes Hx Cardiac Catheterization No Hx Chest Pain No Hx Congestive Heart Failure Yes Hx Deep Vein Thrombosis Yes: 20 years ago after being kicked by a cow, current rt ankle 01/2017 Hx Edema Yes: bilat legs recent hospitalization Hx Heart Attack No Hx Hypertension Yes Hx Irregular Heartbeat Yes: hx a fib had cardioversion 1990 & 01/2017 Hx Palpitations No Hx Pacemaker/Defibrillator Yes: 2014 Hx Vascular Disease Yes Hx Transient Ischemic Attacks No (TIA) Comment: hospitalizations states cardiac arrest during past hospitalization 07/18 PMH - Neuro Hx Neurological Disorders No Hx Brain Tumor No Hx Cerebrovascular Accident No Hx Dementia No Hx Dizziness No Hx Headaches No Hx Neuropathy Yes Hx Parkinson's Disease No Hx Seizures No: denies Hx Speech Problem No Hx Syncope No Hx Transient Ischemic Attacks No (TIA) PMH - GI Hx Gastrointestinal Disorders No Hx Abdominal Pain No Hx Celiac Disease No Hx Crohn's Disease No Hx Diverticulitis No Hx Gastrointestinal Bleed No Hx Gastroesophageal Reflux No: denies reflux Hx Hepatitis/Jaundice No Hx Hiatal Hernia No Hx Irritable Bowel No Hx Liver Disease No Hx Nausea/Vomiting No Hx Obstructive Bowel No Hx Pancreatitis No Hx Rectal Bleeding No Hx Ulcer No Hx Weight Loss/Weight Gain No PMH - Hx Genitourinary Disorders Yes Hx Bladder Problem No Hx Kidney Stones No Hx Prostate Problems No: pt states no but on flomax Hx Renal Disease Yes Hx Urinary Tract Infection No PMH - Endocrine Hx Endocrine Disorders Yes Hx Diabetes Yes Hx Thyroid Disease No Hx of NIDDM Yes Hx of IDDM No Comment: checks blood sugars bid (100-140)/ulcers on feet due to poor circulation PMH - Musculoskeletal Hx Musculoskeletal Disorders Yes Hx Arthritis Yes Hx Back Injury Yes Hx Fibromyalgia No Hx Gout No Hx Musculoskeletal Disease Yes Hx Osteoporosis No Comment: chronic pain; hx septic hip in past PMH - Psych Hx Psychiatric Problems No Hx Anxiety No Hx Behavior Problems No Hx Depression No Hx Emotional Abuse No Hx Sexual Abuse No Hx Suicide Attempt No PMH - Hematology/Oncology Hx Hematology/Oncology Yes Disorders Hx Anemia Yes Hx Blood Disorders No Hx Bruising Yes Hx Cancer Yes: skin Hx Clotting Problems Yes Hx Sickle Cell Disease No Hx Unexplained Bleeding No Hx Blood Transfusion Reaction No Comment: pt to bridge with Lovenox 4 days preop Social History: Detail (The patient lives in a one story home with 3 steps at the entrance and one handrail. The patient has two bathrooms, one with a shower stall and elevated toilet seat with grab bars and one with a tub/shower combo and standard toilet with grab bars.) Precautions: [place] (Contact Precautions), Other (SONG Precautions) - Time With Patient Total Time Spent With Patient (Min): 30 Treatment Procedures: Detail (PT Initial Evaluation) Subjective Information - Subjective Information Per Patient (Overall, said that he was feeling better than he has been. Has some complaints of hip pain, but otherwise doing well.) Objective Data - Pain Pain Present: Yes Pain Intensity: 6 Pain Scale Used: Numeric (1 - 10) - ROM Within normal limits (R Hip, Knee, Ankle all WNL. L Hip decreased ROM as expected s/p SONG. R Knee and Ankle WNL) - Strength/Tone Within normal limits (L Knee Extension 4+/5, Knee Flexion 4+/5, Hip Adduction 5/ 5, Abduction 4+/5. R Knee Flexion 4+/5, Extension 4-/5, Dorsiflexion/ Plantarflexion 4/5. R Hip not tested due to SONG Precautions.) - Bed Mobility Independent (Not assessed as the patient was sitting in his chair, but showed functional strength during other activities.) - Transfers Independent (Sit to stand - Independent with use of walker. Stand to sit - Independent.) - Balance Balance Sitting: Good (No LOB during sitting in chair at initial evaluation) Balance Standing: Good (Functional Balance Assessment not completed at this time , but showed no loss of balance during static standing or gait activities.) - Gait Detail (The patient required supervision with gait activities with a 2WW. He was able to ambulate from his room to the [facility] and back (about 150 feet total) . Had only slight complaints of pain during gait activities.) Therapy Assessment - Therapy Assessment Detail (The patient has decreased ROM and strength as expected s/p R SONG. These factors are limiting his gait activities and transfers. The patient would benefit from PT to address strength and ROM deficits and decrease in functional skills as expected s/p R SONG.) Patient Education - Patient Education Teaching Topic: Exercise/Activity (The patient was instructed in HEP, which included: Quad sets, glute. sets, hamstring sets, and ankle pumps. He was instructed to complete 10 reps of each exercise, and to complete HEP 1-2x/day.) , Precautions (Able to describe hip precautions and follow correctly during transfer activities.) Response: Return Demonstration, Verbalize Understanding Teaching Method: Discussion, Demonstration Teaching Recipient: Patient Barriers To Learning: None Problem List - Problem List Physical Therapy Problem List: Detail (1) Decreased strength and ROM as expected s/p R SONG 2) Increased pain in R Hip area 3) Ability to ascend/descend stairs not assessed 4) Inability to complete community distance ambulation.) Goals - Goals Physical Therapy Goals: 1) The patient will increase strength in R LE to 4+/5 to increase functional ability inside the home. 2) The patient will be able to ascend/descend 3 stairs independently to safely enter the home. 3) The patient will decrease pain to 1-2/10 so that he will be able to complete ADLs/Gait activities without assistance. 4) The patient will be able to ambulate for over 350 feet without rest to complete community ambulation skills independently Prognosis - Prognosis Good Plan - Plan Physical Therapy Plan: The patient will be seen 1-2x/day M-F for gait training, LE ROM and Strengthening exercises, and stairclimbing.
--- NOTE | 2018-01-06 14:01 | Rehab Evaluation ---
Patient Information - Patient Information Diagnosis: s/p R SONG Ordered Treatment: OT Evaluate and Treat Status: Initial Evaluation Surgery: Yes (R SONG) Past Medical/Surgical Hx: PAST MEDICAL/SURGICAL HISTORY Past Surgical History pump trial with dilaudid implanted cath ( permanent device in place) Back surgery X5, neck surgery, Hip & shoulder sx ,Bunionectomy,bilat right hip replacement, AICD , abscess rt thigh, septic hip, hematoma rt thigh , revision x2, evac of hematoma post rt hip; lumbar rhizotomy 05/31/15. permanent pain pump 2015 C2-3 lminectomy 09/19 rt hip arthroplasty 01/18 PMH - Respiratory Hx Respiratory Disorders Yes Hx Asthma Yes Hx Bronchitis No Hx Chronic Obstructive Yes Pulmonary Disease (COPD) Hx Dyspnea Yes Hx Pneumonia Yes: 1989, current 2016 Hx Pulmonary Embolism No Hx Sleep Apnea No Hx Tuberculosis No Hx of CPAP No Hx of SOB Yes: CHF PMH - Cardiovascular Hx Cardiovascular Disorders Yes Hx Abnormal EKG Yes Hx Cardiac Catheterization No Hx Chest Pain No Hx Congestive Heart Failure Yes Hx Deep Vein Thrombosis Yes: 20 years ago after being kicked by a cow, current rt ankle 01/2017 Hx Edema Yes: bilat legs recent hospitalization Hx Heart Attack No Hx Hypertension Yes Hx Irregular Heartbeat Yes: hx a fib had cardioversion 1990 & 01/2017 Hx Palpitations No Hx Pacemaker/Defibrillator Yes: 2014 Hx Vascular Disease Yes Hx Transient Ischemic Attacks No (TIA) Comment: hospitalizations states cardiac arrest during past hospitalization 07/18 PMH - Neuro Hx Neurological Disorders No Hx Brain Tumor No Hx Cerebrovascular Accident No Hx Dementia No Hx Dizziness No Hx Headaches No Hx Neuropathy Yes Hx Parkinson's Disease No Hx Seizures No: denies Hx Speech Problem No Hx Syncope No Hx Transient Ischemic Attacks No (TIA) PMH - GI Hx Gastrointestinal Disorders No Hx Abdominal Pain No Hx Celiac Disease No Hx Crohn's Disease No Hx Diverticulitis No Hx Gastrointestinal Bleed No Hx Gastroesophageal Reflux No: denies reflux Hx Hepatitis/Jaundice No Hx Hiatal Hernia No Hx Irritable Bowel No Hx Liver Disease No Hx Nausea/Vomiting No Hx Obstructive Bowel No Hx Pancreatitis No Hx Rectal Bleeding No Hx Ulcer No Hx Weight Loss/Weight Gain No PMH - Hx Genitourinary Disorders Yes Hx Bladder Problem No Hx Kidney Stones No Hx Prostate Problems No: pt states no but on flomax Hx Renal Disease Yes Hx Urinary Tract Infection No PMH - Endocrine Hx Endocrine Disorders Yes Hx Diabetes Yes Hx Thyroid Disease No Hx of NIDDM Yes Hx of IDDM No Comment: checks blood sugars bid (100-140)/ulcers on feet due to poor circulation PMH - Musculoskeletal Hx Musculoskeletal Disorders Yes Hx Arthritis Yes Hx Back Injury Yes Hx Fibromyalgia No Hx Gout No Hx Musculoskeletal Disease Yes Hx Osteoporosis No Comment: chronic pain; hx septic hip in past PMH - Psych Hx Psychiatric Problems No Hx Anxiety No Hx Behavior Problems No Hx Depression No Hx Emotional Abuse No Hx Sexual Abuse No Hx Suicide Attempt No PMH - Hematology/Oncology Hx Hematology/Oncology Yes Disorders Hx Anemia Yes Hx Blood Disorders No Hx Bruising Yes Hx Cancer Yes: skin Hx Clotting Problems Yes Hx Sickle Cell Disease No Hx Unexplained Bleeding No Hx Blood Transfusion Reaction No Comment: pt to bridge with Lovenox 4 days preop Social History: Detail (The patient lives alone in a one story home with 3 steps at the entrance and one handrail. The patient has two bathrooms, one with a shower stall and elevated toilet seat with grab bars and one with a tub/ shower combo and standard toilet with grab bars. Pt was Ind with all ADLs and IADLs with the exception of donning socks. His daughter assists with this and she is available for other tasks as needed. 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 90 degrees, left to approx. 110 degrees. Pt reports this is longstanding and he has many exercises from previous admissions. Ozzy elbow, wrist and hand AROM WNL.) - Strength/Tone Not within normal limits (Right shoulder flexion 3+/5, left shoulder flexion 4/ 5 (both within AROM limitations), ozzy elbow, wrist and senior materials analyst strength 5/5) - Coordination Appears within normal limits for therapeutic activities - Transfers Independent (Ind with sit to stand from chair.) - Balance Balance Sitting: Good Balance Standing: Good - Sensation Intact - Gait Detail (Pt ambulating in room and hallway with 2 wheeled walker Indly.) - ADL's/IADL's Detail (Pt reports he was Ind with total body dressing today using greenhouse staff with exception of slippers. He reports Ind with toileting. Has not attempted showering since surgery.) Therapy Assessment - Therapy Assessment Detail (Pt presents with functional UE strength and motion, reports Ind with dressing using adaptive equipment. Will assess shower safety.) Problem List - Problem List Physical Therapy Problem List: Detail (1) Decreased strength and ROM as expected s/p R SONG 2) Increased pain in R Hip area 3) Ability to ascend/descend stairs not assessed 4) Inability to complete community distance ambulation.) Occupational Therapy Problem List: Detail (1. Decreased Ind with showering.) Goals - Goals Physical Therapy Goals: 1) The patient will increase strength in R LE to 4+/5 to increase functional ability inside the home. 2) The patient will be able to ascend/descend 3 stairs independently to safely enter the home. 3) The patient will decrease pain to 1-2/10 so that he will be able to complete ADLs/Gait activities without assistance. 4) The patient will be able to ambulate for over 350 feet without rest to complete community ambulation skills independently Occupational Therapy Goals: 1. Pt will be safe and Ind with showering in sitting while maintaining total hip precautions. Prognosis - Prognosis Good Plan - Plan Physical Therapy Plan: The patient will be seen 1-2x/day M-F for gait training, LE ROM and Strengthening exercises, and stairclimbing. Occupational Therapy Plan: OT 1-3 visits to assess safety with showering/ dressing. Provide ongoing HEP for UE ROM and strength as needed.
[2018-01-06] MEDS: OXYCODONE/APAP 10MG-325MG TABLET PO PRN ×2 (14:31→21:02)
[2018-01-06] MEDS: WARFARIN 1 MG TABLET PO SCH (18:12)
[2018-01-06] MEDS: ATORVASTATIN 20 MG TABLET PO SCH (21:02)
[2018-01-06] MEDS: FAMOTIDINE 20MG TABLET PO SCH (21:02)
[2018-01-06] MEDS: SENNOSIDES/DOCUSATE SODIUM UD CAPSULE PO SCH (21:03)
[2018-01-06] MEDS: LEVEMIR FLEXTOUCH 100 UNIT/ML INSULIN PEN SQ SCH (22:40)
[2018-01-07] MEDS: LEVOTHYROXINE SODIUM 125 MCG TABLET PO SCH (06:16)
[2018-01-07] MEDS: VANCOMYCIN HCL 1 GM VIAL PO SCH ×3 (06:17→18:25)
[2018-01-07 07:22] LABS: BASO % 0.4 % (0-6); EOS % 7.4 % (0-6); GRAN % 54.4 % (47-80); HEMATOCRIT 39.5 % (42.0-52.0); LYMPH % 25.8 % (16-45); MEAN CELL VOLUME 88.6 fl (81-97); MEAN CORPUSCULAR HEMOGLOBIN 26.9 pg (27-33); MEAN CORPUSCULAR HGB CONC 30.4 g/dl (32-36); MEAN PLATELET VOLUME 10.4 fl (7.4-10.4); PLATELET COUNT 212 K/uL (130-400); RED BLOOD COUNT 4.46 M/uL (4.40-5.70); RED CELL DISTRIBUTION WIDTH 15.8 % (11.5-14.5); WHITE BLOOD COUNT W/O DIFF 4.8 K/uL (4.2-12.2)
[2018-01-07 07:37] LABS: ALB/GLOB RATIO 1.6 (1.1-1.8); ALBUMIN 3.6 g/dL (4.0-5.0); BILIRUBIN,TOTAL 0.5 mg/dL (0.2-1.0); CREATININE 1.5 mg/dL (0.7-1.2); TOTAL PROTEIN 5.9 g/dL (6.6-8.7)
[2018-01-07 08:34] LABS: INR 1.7; PROTHROMBIN TIME (PATIENT) 18.9 SECONDS (9.5-12.1)
--- NOTE | 2018-01-07 09:53 | Physical Therapy Tx Note ---
Physical Therapy Tx Note - Treatment Note Tolerated: Good Total Time Spent With Patient: 30 Physical Therapy Tx Note: Detail (The patient was in the restroom upon arrival. He was independent with a toilet transfer. He was able to ambulate from his room to the chapel (about 120 feet), and then back to the nurse's station to attempt stairs (another 48 feet). He was then able to ascend/descend 3 steps with supervision and verbal cues for proper foot lead. He was then independent with ambulation back to his room (another 67 feet). The patient then completed 10-12 reps of the following exercises while sitting in his chair: Quad sets, Heel slides, ankle pumps, and glute. sets. The patient was very fatigued with exercise, but was able to complete all reps.) Physical Therapy Problem List: Detail (1) Decreased strength and ROM as expected s/p R SONG 2) Increased pain in R Hip area 3) Ability to ascend/descend stairs not assessed 4) Inability to complete community distance ambulation.) Physical Therapy Goals: 1) The patient will increase strength in R LE to 4+/5 to increase functional ability inside the home. 2) The patient will be able to ascend/descend 3 stairs independently to safely enter the home. 3) The patient will decrease pain to 1-2/10 so that he will be able to complete ADLs/Gait activities without assistance. 4) The patient will be able to ambulate for over 350 feet without rest to complete community ambulation skills independently Prognosis: Good Physical Therapy Plan: The patient will be seen 1-2x/day M-F for gait training, LE ROM and Strengthening exercises, and stairclimbing.
[2018-01-07] MEDS: OXYCODONE/APAP 10MG-325MG TABLET PO PRN (10:08)
[2018-01-07] MEDS: CHOLECALCIFEROL 1,000 UNIT TABLET PO SCH (10:09)
[2018-01-07] MEDS: ASCORBIC ACID 500 MG TAB PO SCH ×2 (10:09→22:35)
[2018-01-07] MEDS: AMIODARONE HCL 200 MG TABLET PO SCH (10:09)
[2018-01-07] MEDS: MELOXICAM 7.5 MG TABLET PO SCH (10:10)
[2018-01-07] MEDS: BUMETANIDE 1 MG TABLET PO SCH ×2 (10:10→16:15)
[2018-01-07] MEDS: METOPROLOL SUCC 25 MG TAB.ER PO SCH (10:11)
[2018-01-07] MEDS: METOLAZONE 2.5 MG TABLET PO SCH (10:11)
[2018-01-07] MEDS: MULTIVITAMINS/MINERALS TABLET PO SCH (10:11)
[2018-01-07] MEDS: POTASSIUM CHLORIDE 20 MEQ TABLET PO SCH ×3 (10:11→22:35)
[2018-01-07] MEDS: TAMSULOSIN HCL 0.4 MG CAP.ER.24H PO SCH (10:11)
[2018-01-07] MEDS: FERROUS SULFATE 325 MG TAB PO SCH ×3 (10:14→18:04)
[2018-01-07] MEDS: MAGNESIUM OXIDE 400 MG TABLET PO SCH (10:14)
[2018-01-07] MEDS: BREO (FLUTICASONE/VILANTEROL) 200MCG/25MCG INHALER INH SCH (10:17)
--- NOTE | 2018-01-07 14:40 | Physical Therapy Tx Note ---
Physical Therapy Tx Note - Treatment Note Tolerated: Good Total Time Spent With Patient: 30 Physical Therapy Tx Note: Detail (Patient states doing well today, with minimal complaints of pain in right hip. Patient transferred sit to and from stand SBA x1. Patient ambulated 225 feet with wheeled walker SBA x1. Patient performed the following exercises: standing heel raises x15, standing toe raises x15, LAQ x15, seated hip flexion x7, seated isometric hip abduction x15, seated isometric hip adduction x15, and hamstring sets x10. Patient transferred sit to and from stand SBA x1. Patient tolerated treatment well. Patient reports fatigue with exercises. Patient was left seated in chair with call light within reach.) Physical Therapy Problem List: Detail (1) Decreased strength and ROM as expected s/p R SONG 2) Increased pain in R Hip area 3) Ability to ascend/descend stairs not assessed 4) Inability to complete community distance ambulation.) Physical Therapy Goals: 1) The patient will increase strength in R LE to 4+/5 to increase functional ability inside the home. 2) The patient will be able to ascend/descend 3 stairs independently to safely enter the home. 3) The patient will decrease pain to 1-2/10 so that he will be able to complete ADLs/Gait activities without assistance. 4) The patient will be able to ambulate for over 350 feet without rest to complete community ambulation skills independently Prognosis: Good Physical Therapy Plan: The patient will be seen 1-2x/day M-F for gait training, LE ROM and Strengthening exercises, and stairclimbing.
[2018-01-07] MEDS: WARFARIN 1 MG TABLET PO SCH (16:15)
[2018-01-07] MEDS: SENNOSIDES/DOCUSATE SODIUM UD CAPSULE PO SCH (22:35)
[2018-01-07] MEDS: ATORVASTATIN 20 MG TABLET PO SCH (22:35)
[2018-01-07] MEDS: FAMOTIDINE 20MG TABLET PO SCH (22:35)
[2018-01-07] MEDS: LEVEMIR FLEXTOUCH 100 UNIT/ML INSULIN PEN SQ SCH (22:37)
[2018-01-08] MEDS: VANCOMYCIN HCL 1 GM VIAL PO SCH ×5 (00:08→23:25)
[2018-01-08] MEDS: LEVOTHYROXINE SODIUM 125 MCG TABLET PO SCH (06:16)
[2018-01-08] MEDS: FERROUS SULFATE 325 MG TAB PO SCH ×3 (08:35→17:06)
[2018-01-08] MEDS: BREO (FLUTICASONE/VILANTEROL) 200MCG/25MCG INHALER INH SCH (09:38)
[2018-01-08] MEDS: MULTIVITAMINS/MINERALS TABLET PO SCH (11:21)
[2018-01-08] MEDS: BUMETANIDE 1 MG TABLET PO SCH ×2 (11:21→17:05)
[2018-01-08] MEDS: MELOXICAM 7.5 MG TABLET PO SCH (11:24)
[2018-01-08] MEDS: METOLAZONE 2.5 MG TABLET PO SCH (11:25)
[2018-01-08] MEDS: CHOLECALCIFEROL 1,000 UNIT TABLET PO SCH (11:25)
[2018-01-08] MEDS: POTASSIUM CHLORIDE 20 MEQ TABLET PO SCH ×3 (11:25→21:32)
[2018-01-08] MEDS: AMIODARONE HCL 200 MG TABLET PO SCH (11:26)
[2018-01-08] MEDS: ASCORBIC ACID 500 MG TAB PO SCH ×2 (11:26→21:33)
[2018-01-08] MEDS: METOPROLOL SUCC 25 MG TAB.ER PO SCH (11:26)
[2018-01-08] MEDS: TAMSULOSIN HCL 0.4 MG CAP.ER.24H PO SCH (11:27)
[2018-01-08] MEDS: MAGNESIUM OXIDE 400 MG TABLET PO SCH (11:27)
[2018-01-08] MEDS: OXYCODONE/APAP 10MG-325MG TABLET PO PRN (11:52)
--- NOTE | 2018-01-08 12:52 | Physical Therapy Tx Note ---
Physical Therapy Tx Note - Treatment Note Tolerated: Good Total Time Spent With Patient: 35 Physical Therapy Tx Note: Detail (Patient states feeling good today. Patient transferred sit to and from stand independently. Patient ambulated 390 feet with wheeled walker SBA x1. Patient performed the following exercises seated in chair: hip flexion with assist x15, LAQ x20, hamstring curls with green theraband x20, hip abduction with red theraband x20, isometric hip adduction x20 , and glut squeezes x5. Patient tolerated treatment well. Patient reports feeling good after treatment. Patient was left seated in chair with call light within reach.) Physical Therapy Problem List: Detail (1) Decreased strength and ROM as expected s/p R SONG 2) Increased pain in R Hip area 3) Ability to ascend/descend stairs not assessed 4) Inability to complete community distance ambulation.) Physical Therapy Goals: 1) The patient will increase strength in R LE to 4+/5 to increase functional ability inside the home. 2) The patient will be able to ascend/descend 3 stairs independently to safely enter the home. 3) The patient will decrease pain to 1-2/10 so that he will be able to complete ADLs/Gait activities without assistance. 4) The patient will be able to ambulate for over 350 feet without rest to complete community ambulation skills independently Prognosis: Good Physical Therapy Plan: The patient will be seen 1-2x/day M-F for gait training, LE ROM and Strengthening exercises, and stairclimbing.
--- NOTE | 2018-01-08 14:43 | Physical Therapy Tx Note ---
Physical Therapy Tx Note - Treatment Note Tolerated: Good Total Time Spent With Patient: 35 Physical Therapy Tx Note: Detail (Patient states more tired and sore this afternoon. Patient transferred sit to and from stand independently. Patient ambulated 412 feet with wheeled walker SBA x1. Patient performed the following exercises x15-20 reps each: standing toe raises, standing heel raises, LAQ, seated hip abduction with green theraband, glut squeezes, and abdominal isometrics and seated hip flexion x10 reps each. Patient tolerated treatment well. Patient reports tired after treatment. Patient was left seated in chair. ) Physical Therapy Problem List: Detail (1) Decreased strength and ROM as expected s/p R SONG 2) Increased pain in R Hip area 3) Ability to ascend/descend stairs not assessed 4) Inability to complete community distance ambulation.) Physical Therapy Goals: 1) The patient will increase strength in R LE to 4+/5 to increase functional ability inside the home. 2) The patient will be able to ascend/descend 3 stairs independently to safely enter the home. 3) The patient will decrease pain to 1-2/10 so that he will be able to complete ADLs/Gait activities without assistance. 4) The patient will be able to ambulate for over 350 feet without rest to complete community ambulation skills independently Prognosis: Good Physical Therapy Plan: The patient will be seen 1-2x/day M-F for gait training, LE ROM and Strengthening exercises, and stairclimbing.
[2018-01-08] MEDS: WARFARIN 1 MG TABLET PO SCH (17:06)
[2018-01-08] MEDS: ATORVASTATIN 20 MG TABLET PO SCH (21:32)
[2018-01-08] MEDS: FAMOTIDINE 20MG TABLET PO SCH (21:33)
[2018-01-08] MEDS: SENNOSIDES/DOCUSATE SODIUM UD CAPSULE PO SCH (21:33)
[2018-01-08] MEDS: LEVEMIR FLEXTOUCH 100 UNIT/ML INSULIN PEN SQ SCH (21:39)
[2018-01-09] MEDS: VANCOMYCIN HCL 1 GM VIAL PO SCH ×4 (06:15→23:37)
[2018-01-09] MEDS: LEVOTHYROXINE SODIUM 125 MCG TABLET PO SCH (06:15)
[2018-01-09 07:10] LABS: PROTHROMBIN TIME (PATIENT) 21.3 SECONDS (9.5-12.1)
[2018-01-09] MEDS: FERROUS SULFATE 325 MG TAB PO SCH ×3 (08:06→17:15)
[2018-01-09] MEDS: OXYCODONE/APAP 10MG-325MG TABLET PO PRN ×3 (08:11→17:14)
--- NOTE | 2018-01-09 08:22 | Occupational Therapy Tx Note ---
Occupational Therapy Tx Note - Treatment Note Tolerated: Good Total Time Spent With Patient: 60 (ADL) Occupational Therapy Treatment Note: Detail (S: Pt sleeping but easily awoke. He is stiff but ready for showering. O: Supine to sit Indly. Sit to stand to walker and amb to toilet with 2 wheeled walker Indly. Toileted in standing Indly. Pt doffed t-shirt, PJ bottoms, boxer shorts and slippers Indly with salt lifter while maintaining hip precautions. Pt amb to shower and completed total body showering in standing with use of grab bars Indly. Pt dried self Indly in standing. Donned t-shirt and PJ bottoms Indly in sitting and standing with salt lifter. Slippers donned per OT (daughter has been assisting with this after dressing change). Pt amb to chair with 2 wheeled walker Indly. A: Pt is safe and Ind with showering and dressing using salt lifter while maintaining hip precautions, pt is Ind with modified dressing techniques.) Occupational Therapy Problem List: Detail (1. Decreased Ind with showering.) Occupational Therapy Goals: 1. Pt will be safe and Ind with showering in sitting while maintaining total hip precautions. Prognosis: Good Occupational Therapy Plan: OT 1-3 visits to assess safety with showering/ dressing. Provide ongoing HEP for UE ROM and strength as needed.
[2018-01-09] MEDS: BUMETANIDE 1 MG TABLET PO SCH ×2 (09:23→15:57)
[2018-01-09] MEDS: MULTIVITAMINS/MINERALS TABLET PO SCH (09:23)
[2018-01-09] MEDS: TAMSULOSIN HCL 0.4 MG CAP.ER.24H PO SCH (09:24)
[2018-01-09] MEDS: POTASSIUM CHLORIDE 20 MEQ TABLET PO SCH ×3 (09:24→21:06)
[2018-01-09] MEDS: MAGNESIUM OXIDE 400 MG TABLET PO SCH (09:24)
[2018-01-09] MEDS: AMIODARONE HCL 200 MG TABLET PO SCH (09:25)
[2018-01-09] MEDS: METOPROLOL SUCC 25 MG TAB.ER PO SCH (09:25)
[2018-01-09] MEDS: MELOXICAM 7.5 MG TABLET PO SCH (09:25)
[2018-01-09] MEDS: CHOLECALCIFEROL 1,000 UNIT TABLET PO SCH (09:26)
[2018-01-09] MEDS: ASCORBIC ACID 500 MG TAB PO SCH ×2 (09:26→21:07)
[2018-01-09] MEDS: METOLAZONE 2.5 MG TABLET PO SCH (09:27)
[2018-01-09] MEDS: WARFARIN 1 MG TABLET PO SCH (15:59)
--- NOTE | 2018-01-09 17:21 | Physical Therapy Tx Note ---
Physical Therapy Tx Note - Treatment Note Tolerated: Good Total Time Spent With Patient: 25 Physical Therapy Tx Note: Detail (The patient was sitting in his chair upon arrival. The patient was able to transfer from sit to stand independently. He was then able to ambulate from his room to the nurse's station/stairwell with supervision only. He was able to descend 3 steps with verbal cues for walker placemenent and supervision. The patient then completed 2 transfers in/out of the vehicle. The patient required the seat back to be reclined for entry. The patient also required verbal cues to maintain hip precautions with the transfer , otherwise the patient was independent. For the transfer, he sat into the seat transferred his left leg into the vehicle, then the right into the vehicle. He was then able to ascend the three steps back into the hospital, and then ambulated back to his room with supervision (ambulation total about 250 feet). He was then able to transfer independently back to his chair. After activity, he reported some increased soreness, and requested further pain medication. He was left in his chair with his call light in reach and daughter present.) Physical Therapy Problem List: Detail (1) Decreased strength and ROM as expected s/p R SONG 2) Increased pain in R Hip area 3) Ability to ascend/descend stairs not assessed 4) Inability to complete community distance ambulation.) Physical Therapy Goals: 1) The patient will increase strength in R LE to 4+/5 to increase functional ability inside the home. 2) The patient will be able to ascend/descend 3 stairs independently to safely enter the home. 3) The patient will decrease pain to 1-2/10 so that he will be able to complete ADLs/Gait activities without assistance. 4) The patient will be able to ambulate for over 350 feet without rest to complete community ambulation skills independently Prognosis: Good Physical Therapy Plan: The patient will be seen 1-2x/day M-F for gait training, LE ROM and Strengthening exercises, and stairclimbing.
[2018-01-09] MEDS: BREO (FLUTICASONE/VILANTEROL) 200MCG/25MCG INHALER INH SCH (19:11)
[2018-01-09] MEDS: SENNOSIDES/DOCUSATE SODIUM UD CAPSULE PO SCH (21:05)
[2018-01-09] MEDS: ATORVASTATIN 20 MG TABLET PO SCH (21:06)
[2018-01-09] MEDS: FAMOTIDINE 20MG TABLET PO SCH (21:07)
[2018-01-09] MEDS: LEVEMIR FLEXTOUCH 100 UNIT/ML INSULIN PEN SQ SCH (22:31)
[2018-01-10] MEDS: OXYCODONE/APAP 10MG-325MG TABLET PO PRN (01:06)
[2018-01-10] MEDS: VANCOMYCIN HCL 1 GM VIAL PO SCH ×4 (06:11→23:24)
[2018-01-10] MEDS: LEVOTHYROXINE SODIUM 125 MCG TABLET PO SCH (06:11)
[2018-01-10] MEDS: FERROUS SULFATE 325 MG TAB PO SCH ×3 (09:06→17:22)
[2018-01-10] MEDS: MULTIVITAMINS/MINERALS TABLET PO SCH (09:06)
[2018-01-10] MEDS: CHOLECALCIFEROL 1,000 UNIT TABLET PO SCH (09:07)
[2018-01-10] MEDS: METOPROLOL SUCC 25 MG TAB.ER PO SCH (09:07)
[2018-01-10] MEDS: POTASSIUM CHLORIDE 20 MEQ TABLET PO SCH ×3 (09:07→22:02)
[2018-01-10] MEDS: ASCORBIC ACID 500 MG TAB PO SCH ×2 (09:08→22:02)
[2018-01-10] MEDS: MAGNESIUM OXIDE 400 MG TABLET PO SCH (09:08)
[2018-01-10] MEDS: BUMETANIDE 1 MG TABLET PO SCH ×2 (09:09→17:23)
[2018-01-10] MEDS: MELOXICAM 7.5 MG TABLET PO SCH (09:09)
[2018-01-10] MEDS: METOLAZONE 2.5 MG TABLET PO SCH (09:09)
[2018-01-10] MEDS: AMIODARONE HCL 200 MG TABLET PO SCH (09:09)
[2018-01-10] MEDS: BREO (FLUTICASONE/VILANTEROL) 200MCG/25MCG INHALER INH SCH (09:10)
[2018-01-10] MEDS: TAMSULOSIN HCL 0.4 MG CAP.ER.24H PO SCH (09:10)
[2018-01-10] MEDS: WARFARIN 1 MG TABLET PO SCH (17:22)
[2018-01-10] MEDS: FAMOTIDINE 20MG TABLET PO SCH (22:02)
[2018-01-10] MEDS: ATORVASTATIN 20 MG TABLET PO SCH (22:02)
[2018-01-10] MEDS: LEVEMIR FLEXTOUCH 100 UNIT/ML INSULIN PEN SQ SCH (22:03)
[2018-01-10] MEDS: SENNOSIDES/DOCUSATE SODIUM UD CAPSULE PO SCH (22:03)
[2018-01-11] MEDS: OXYCODONE/APAP 10MG-325MG TABLET PO PRN (04:03)
[2018-01-11] MEDS: LEVOTHYROXINE SODIUM 125 MCG TABLET PO SCH (06:13)
[2018-01-11] MEDS: VANCOMYCIN HCL 1 GM VIAL PO SCH ×3 (06:13→17:40)
[2018-01-11] MEDS: FERROUS SULFATE 325 MG TAB PO SCH ×4 (08:22→17:40)
[2018-01-11] MEDS: ASCORBIC ACID 500 MG TAB PO SCH ×2 (09:47→22:49)
[2018-01-11] MEDS: POTASSIUM CHLORIDE 20 MEQ TABLET PO SCH ×3 (09:48→22:49)
[2018-01-11] MEDS: METOLAZONE 2.5 MG TABLET PO SCH (09:48)
[2018-01-11] MEDS: BUMETANIDE 1 MG TABLET PO SCH ×2 (09:48→17:40)
[2018-01-11] MEDS: MULTIVITAMINS/MINERALS TABLET PO SCH (09:48)
[2018-01-11] MEDS: METOPROLOL SUCC 25 MG TAB.ER PO SCH (09:48)
[2018-01-11] MEDS: AMIODARONE HCL 200 MG TABLET PO SCH (09:48)
[2018-01-11] MEDS: MAGNESIUM OXIDE 400 MG TABLET PO SCH (09:48)
[2018-01-11] MEDS: CHOLECALCIFEROL 1,000 UNIT TABLET PO SCH (09:49)
[2018-01-11] MEDS: TAMSULOSIN HCL 0.4 MG CAP.ER.24H PO SCH (09:49)
[2018-01-11] MEDS: MELOXICAM 7.5 MG TABLET PO SCH (09:49)
[2018-01-11 09:54] LABS: PROTHROMBIN TIME (PATIENT) 22.1 SECONDS (9.5-12.1)
[2018-01-11] MEDS: BREO (FLUTICASONE/VILANTEROL) 200MCG/25MCG INHALER INH SCH (10:35)
[2018-01-11] MEDS: WARFARIN 1 MG TABLET PO SCH (17:40)
[2018-01-11] MEDS: ATORVASTATIN 20 MG TABLET PO SCH (22:49)
[2018-01-11] MEDS: FAMOTIDINE 20MG TABLET PO SCH (22:49)
[2018-01-11] MEDS: SENNOSIDES/DOCUSATE SODIUM UD CAPSULE PO SCH (22:50)
[2018-01-11] MEDS: LEVEMIR FLEXTOUCH 100 UNIT/ML INSULIN PEN SQ SCH (22:54)
[2018-01-12] MEDS: VANCOMYCIN HCL 1 GM VIAL PO SCH ×4 (00:10→17:31)
[2018-01-12] MEDS: LEVOTHYROXINE SODIUM 125 MCG TABLET PO SCH (06:24)
[2018-01-12] MEDS: FERROUS SULFATE 325 MG TAB PO SCH ×3 (08:32→17:30)
[2018-01-12] MEDS: BREO (FLUTICASONE/VILANTEROL) 200MCG/25MCG INHALER INH SCH (09:03)
[2018-01-12] MEDS: BUMETANIDE 1 MG TABLET PO SCH ×2 (09:12→15:59)
[2018-01-12] MEDS: MULTIVITAMINS/MINERALS TABLET PO SCH (09:13)
[2018-01-12] MEDS: TAMSULOSIN HCL 0.4 MG CAP.ER.24H PO SCH (09:14)
[2018-01-12] MEDS: MELOXICAM 7.5 MG TABLET PO SCH (09:14)
[2018-01-12] MEDS: POTASSIUM CHLORIDE 20 MEQ TABLET PO SCH ×3 (09:14→21:26)
[2018-01-12] MEDS: MAGNESIUM OXIDE 400 MG TABLET PO SCH (09:14)
[2018-01-12] MEDS: METOPROLOL SUCC 25 MG TAB.ER PO SCH (09:15)
[2018-01-12] MEDS: AMIODARONE HCL 200 MG TABLET PO SCH (09:15)
[2018-01-12] MEDS: ASCORBIC ACID 500 MG TAB PO SCH ×2 (09:15→21:25)
[2018-01-12] MEDS: CHOLECALCIFEROL 1,000 UNIT TABLET PO SCH (09:17)
[2018-01-12] MEDS: METOLAZONE 2.5 MG TABLET PO SCH (09:18)
[2018-01-12] MEDS: OXYCODONE/APAP 10MG-325MG TABLET PO PRN (09:20)
--- NOTE | 2018-01-12 09:44 | Physical Therapy Tx Note ---
Physical Therapy Tx Note - Treatment Note Tolerated: Good Total Time Spent With Patient: 30 Physical Therapy Tx Note: Detail (The patient was sitting in his chair upon arrival. The patient was able to ambulate from his room to the nurse's station and back (about 140 feet total) with two canes. He demonstrated good balance and proper gait pattern with the canes. He returned to his room and was able to transfer independently back to his chair. He then completed 20 reps of the following exercises: Heel/toe raises, seated hip abduction, and LAQ. He completed 10 reps of seated hip flexion, which required assistance on the R to lift leg. The patient reported increased pain today, but still wanted to complete therapy. He was left in his chair with his call light in reach.) Physical Therapy Problem List: Detail (1) Decreased strength and ROM as expected s/p R SONG 2) Increased pain in R Hip area 3) Ability to ascend/descend stairs not assessed 4) Inability to complete community distance ambulation.) Physical Therapy Goals: 1) The patient will increase strength in R LE to 4+/5 to increase functional ability inside the home. 2) The patient will be able to ascend/descend 3 stairs independently to safely enter the home. 3) The patient will decrease pain to 1-2/10 so that he will be able to complete ADLs/Gait activities without assistance. 4) The patient will be able to ambulate for over 350 feet without rest to complete community ambulation skills independently Prognosis: Good Physical Therapy Plan: The patient will be seen 1-2x/day M-F for gait training, LE ROM and Strengthening exercises, and stairclimbing.
--- NOTE | 2018-01-12 14:30 | Physical Therapy Tx Note ---
Physical Therapy Tx Note - Treatment Note Tolerated: Good Total Time Spent With Patient: 40 Physical Therapy Tx Note: Detail (Patient states right hip and shoulders sore today. Patient transferred sit to and from stand independently. Patient ambulated 205 feet with two canes SBA x1. Patient performed the following exercises x15-20 reps each: standing heel raises, standing toe raises, seated hip flexion with assist, seated hip abduction with green theraband, seated hamstring curls with green theraband, seated isometric hip adduction, LAQ, and glut squeezes. Patient tolerated treatment well. Patient reports fatigued after treatment. Patient was left seated in chair with call light within reach. ) Physical Therapy Problem List: Detail (1) Decreased strength and ROM as expected s/p R SONG 2) Increased pain in R Hip area 3) Ability to ascend/descend stairs not assessed 4) Inability to complete community distance ambulation.) Physical Therapy Goals: 1) The patient will increase strength in R LE to 4+/5 to increase functional ability inside the home. 2) The patient will be able to ascend/descend 3 stairs independently to safely enter the home. 3) The patient will decrease pain to 1-2/10 so that he will be able to complete ADLs/Gait activities without assistance. 4) The patient will be able to ambulate for over 350 feet without rest to complete community ambulation skills independently Prognosis: Good Physical Therapy Plan: The patient will be seen 1-2x/day M-F for gait training, LE ROM and Strengthening exercises, and stairclimbing.
[2018-01-12] MEDS: WARFARIN 1 MG TABLET PO SCH (15:59)
[2018-01-12] MEDS: SENNOSIDES/DOCUSATE SODIUM UD CAPSULE PO SCH (21:25)
[2018-01-12] MEDS: ATORVASTATIN 20 MG TABLET PO SCH (21:26)
[2018-01-12] MEDS: FAMOTIDINE 20MG TABLET PO SCH (21:26)
[2018-01-12] MEDS: LEVEMIR FLEXTOUCH 100 UNIT/ML INSULIN PEN SQ SCH (21:26)
[2018-01-13] MEDS: VANCOMYCIN HCL 1 GM VIAL PO SCH ×5 (00:02→23:55)
[2018-01-13] MEDS: GUAIFENESIN 600 MG TABCR PO SCH ×3 (00:30→21:29)
[2018-01-13] MEDS: LEVOTHYROXINE SODIUM 125 MCG TABLET PO SCH ×2 (07:02→07:04)
[2018-01-13] MEDS: ACETAMINOPHEN 500 MG TABLET PO PRN (08:11)
[2018-01-13] MEDS: FERROUS SULFATE 325 MG TAB PO SCH ×3 (08:11→17:51)
[2018-01-13] MEDS: ALBUTEROL HFA 8 GM INHALER INH PRN (08:16)
[2018-01-13] MEDS: BUMETANIDE 1 MG TABLET PO SCH ×2 (10:28→16:20)
[2018-01-13] MEDS: MULTIVITAMINS/MINERALS TABLET PO SCH (10:28)
--- NOTE | 2018-01-13 10:29 | Physical Therapy Tx Note ---
Physical Therapy Tx Note - Treatment Note Tolerated: Good Total Time Spent With Patient: 25 Physical Therapy Tx Note: Detail (The patient was sitting his chair upon arrival. The patient was able to ambulate from his room to the surgical waiting area and back without a rest break (about 250 feet total) with supervision only. Upon return to his room, he required a small rest break. Exercises were then completed in seated: Red and Green Band LAQ, Red and Green Hamstring Curl x 15-20 each LE. The patient then completed 20 calf raises in his walker and 12 standing hip abduction in walker. The patient did not complain of fatigue until after all exercises were completed. The patient was left in his chair with his call light in reach.) Physical Therapy Problem List: Detail (1) Decreased strength and ROM as expected s/p R SONG 2) Increased pain in R Hip area 3) Ability to ascend/descend stairs not assessed 4) Inability to complete community distance ambulation.) Physical Therapy Goals: 1) The patient will increase strength in R LE to 4+/5 to increase functional ability inside the home. 2) The patient will be able to ascend/descend 3 stairs independently to safely enter the home. 3) The patient will decrease pain to 1-2/10 so that he will be able to complete ADLs/Gait activities without assistance. 4) The patient will be able to ambulate for over 350 feet without rest to complete household ambulation skills independently Physical Therapy Plan: The patient will be seen 1-2x/day M-F for gait training, LE ROM and Strengthening exercises, and stairclimbing.
[2018-01-13] MEDS: TAMSULOSIN HCL 0.4 MG CAP.ER.24H PO SCH (10:33)
[2018-01-13] MEDS: POTASSIUM CHLORIDE 20 MEQ TABLET PO SCH ×3 (10:34→21:20)
[2018-01-13] MEDS: MAGNESIUM OXIDE 400 MG TABLET PO SCH (10:34)
[2018-01-13] MEDS: MELOXICAM 7.5 MG TABLET PO SCH (10:35)
[2018-01-13] MEDS: CHOLECALCIFEROL 1,000 UNIT TABLET PO SCH (10:36)
[2018-01-13] MEDS: AMIODARONE HCL 200 MG TABLET PO SCH (10:36)
[2018-01-13] MEDS: METOLAZONE 2.5 MG TABLET PO SCH (10:36)
[2018-01-13] MEDS: METOPROLOL SUCC 25 MG TAB.ER PO SCH (10:41)
[2018-01-13] MEDS: ASCORBIC ACID 500 MG TAB PO SCH ×2 (10:44→21:20)
--- NOTE | 2018-01-13 11:41 | Physician Progress Note ---
Subjective - Date Date of Progress Note: 01/13/18 - Admitting Diagnosis Diagnosis: Multiple rehab services s/p SONG - Subjective Nursing Care Plan Problem List Activity Intolerance (Swing Bed) Start: 01/05/18 18: 28 Freq: Status: Active Protocol: Created 01/05/18 18:28 [facility] [place] (Rec: 01/05/18 18:28 [facility] [place] [id number]) Altered Peripheral Tissue Perfusion Start: 01/05/18 18: 29 Freq: Status: Active Protocol: Created 01/05/18 18:29 [facility] [place] (Rec: 01/05/18 18:29 [facility] [place] [id number]) High Risk: Post-Op Complications Start: 01/05/18 18: 29 Freq: Status: Active Protocol: Created 01/05/18 18:29 [facility] [place] (Rec: 01/05/18 18:29 [facility] [id number]) Impaired Skin Integrity Start: 01/05/18 18: 29 Freq: Status: Active Protocol: Created 01/05/18 18:29 [facility] [place] (Rec: 01/05/18 18:29 [facility] [place] [id number]) Knowledge Deficit (Swing Bed) Start: 01/05/18 18: 28 Freq: Status: Active Protocol: Created 01/05/18 18:28 [facility] [place] (Rec: 01/05/18 18:28 [facility] [place] [id number]) Knowledge Deficit: Total Hip Replacement Start: 01/05/18 18: 29 Freq: Status: Active Protocol: Created 01/05/18 18:29 [facility] [place] (Rec: 01/05/18 18:29 [facility] [id number]) Pain Start: 01/05/18 18: 29 Freq: Status: Active Protocol: Created 01/05/18 18:29 [facility] [place] (Rec: 01/05/18 18:29 [facility] [place] [id number]) Pain (Swing Bed) Start: 01/05/18 18: 28 Freq: Status: Active Protocol: Created 01/05/18 18:28 [facility] [place] (Rec: 01/05/18 18:28 [facility] [id number]) Subjective: 01/13/18- Patient states he is doing pretty well today. He says his hip pain seems to be well controlled. He has been taking percocet about 1-2 times daily as needed. He feels like his legs are at his norm, not swollen. He does report some chest congestion and cough beginning last evening. Feels the mucinex and albuterol treatments have been helping. states he is not having any diarrhea. He has been having one formed stool daily for the past week. - Subjective Detail Constitutional: Denies: Chills, Fever Respiratory: Reports: Cough. Denies: Stridor, Wheezes Cardiovascular: Denies: Chest pain Gastrointestinal: Denies: Abdominal pain, Diarrhea General - Cognitive Patterns Speech: Normal Thought Process: Intact Thought Content: Normal - Communication Select best description of speech pattern: Clear Speech Ability to express ideas and wants: Understood Understanding verbal content: Understands - Mood and Behavior Patterns Appearance: Well Groomed Mood: Normal Attitude: Cooperative Motor Activity: Calm Affect: Appropriate Hallucinations: Denies - Physical Functioning Activity Level: Up as tolerated Turning: Self ad trista ROM Ability: Moves all extremities Assistive Devices: 2 Wheel Walker Ambulation Ability: Independent Bed Mobility: Independent Transfer Ability: Independent Bathing Ability: Independent Personal Hygiene: Independent Dressing Ability: Independent Eating (Feeding) Ability: Independent Toileting Ability: Independent Administer Own Medication: Independent - Continence Bowel Pattern: Normal for Patient Bladder Pattern: Normal Meds/Allergies - Allergies Allergies Allergy/AdvReac Type Severity Reaction Status Date / Time onion Allergy Intermediate NAUSEA Verified 01/30/16 14:13 - Active Medications Current Medications Acetaminophen (Tylenol 500mg Tab) 1,000 mg PO Q6H PRN PRN Reason: Pain - General Last Admin: 01/13/18 08:11 Dose: 1,000 mg Albuterol Sulfate (Ventolin Hfa) 2 puff INH RESP.Q4H PRN PRN Reason: Wheezing Last Admin: 01/13/18 08:16 Dose: 2 puff Amiodarone HCl (Pacerone) 200 mg PO DAILY [facility] Last Admin: 01/13/18 10:36 Dose: 200 mg Ascorbic Acid (Vitamin C) 500 mg PO BID [facility] Last Admin: 01/13/18 10:44 Dose: 500 mg Atorvastatin Calcium (Lipitor) 20 mg PO QHS [facility] Last Admin: 01/12/18 21:26 Dose: 20 mg Bumetanide (Bumex) 2 mg PO BIDDIUR [facility] Last Admin: 01/13/18 10:28 Dose: 1 mg Famotidine (Pepcid) 20 mg PO QHS [facility] Last Admin: 01/12/18 21:26 Dose: 20 mg Ferrous Sulfate (Iron) 325 mg PO WMEALS [facility] Last Admin: 01/13/18 08:11 Dose: 325 mg Guaifenesin (Mucinex) 600 mg PO BID [facility] Last Admin: 01/13/18 10:35 Dose: 600 mg Insulin Detemir (Levemir Flextouch) 6 unit SQ QHS [facility] Last Admin: 01/12/18 21:26 Dose: 6 unit Levothyroxine Sodium (Synthroid) 125 mcg PO DAILYTHY [facility] Last Admin: 01/13/18 07:04 Dose: 125 mcg Magnesium Oxide (Mag Ox) 400 mg PO DAILY [facility] Last Admin: 01/13/18 10:34 Dose: 400 mg Meloxicam (Mobic) 15 mg PO DAILY [facility] Last Admin: 01/13/18 10:35 Dose: 15 mg Metolazone (Zaroxolyn) 2.5 mg PO DAILY [facility] Last Admin: 01/13/18 10:36 Dose: 2.5 mg Metoprolol Succinate (Toprol Xl) 12.5 mg PO DAILY [facility] Last Admin: 01/13/18 10:41 Dose: 12.5 mg Multivitamins/Minerals (Centrum) 1 tab PO DAILY [facility] Last Admin: 01/13/18 10:28 Dose: 1 tab Ondansetron HCl (Zofran Odt) 4 mg SL Q6H PRN PRN Reason: NAUSEA Oxycodone/Acetaminophen (Percocet 10-325 Mg Tablet) 1 each PO Q4H PRN PRN Reason: MODERATE PAIN Last Admin: 01/08/18 11:52 Dose: 1 each Oxycodone/Acetaminophen (Percocet 10-325 Mg Tablet) 2 each PO Q4H PRN PRN Reason: SEVERE PAIN Last Admin: 01/12/18 09:20 Dose: 2 each Polyethylene Glycol (Miralax) 17 gm PO QHS PRN PRN Reason: CONSTIPATION Potassium Chloride (Klor-Con) 20 meq PO TID [facility] Last Admin: 01/13/18 10:34 Dose: 20 meq Senna/Docusate Sodium (Senna Plus) 2 each PO QHS [facility] Last Admin: 01/12/18 21:25 Dose: Not Given Tamsulosin HCl (Flomax) 0.4 mg PO DAILY [facility] Last Admin: 01/13/18 10:33 Dose: 0.4 mg Tramadol HCl (Ultram) 50 mg PO Q6H PRN PRN Reason: MILD PAIN Tramadol HCl (Ultram) 100 mg PO Q6H PRN PRN Reason: MILD PAIN IF 1 TAB INEFFECTIVE Vancomycin HCl (Vanco) 125 mg PO Q6HR [facility] Stop: 01/16/18 06:01 Last Admin: 01/13/18 07:02 Dose: 125 mg Vitamin D (Vitamin D3) 5,000 unit PO DAILY [facility] Last Admin: 01/13/18 10:36 Dose: 5,000 unit Warfarin Sodium (Coumadin) 3 mg PO MoWeFr [facility] Last Admin: 01/12/18 15:59 Dose: 3 mg Warfarin Sodium (Coumadin) 2 mg PO SuTuThSa [facility] Last Admin: 01/11/18 17:40 Dose: 2 mg Objective - Vital Signs Vital Signs: Vital Signs - Last 24 Hrs Temp Pulse Resp BP BP Pulse Ox 01/13/18 08:00 97.0 F L 85 18 133/75 93 L 01/12/18 20:00 97.8 F 83 20 126/67 98 - General General Appearance: Alert, Oriented x3, Cooperative, No acute distress - Head Head exam: Normal inspection - Eye Eye exam: Normal appearance, PERRL - ENT ENT exam: Normal exam - Respiratory Respiratory exam: Normal lung sounds bilaterally, Decreased breath sounds ( chronic LLL). negative: Accessory muscle use, Rales, Respiratory distress - Cardiovascular Cardiovascular Exam: Regular rate, Normal rhythm, Systolic murmur - GI/Abdominal GI/Abdominal exam: Soft, Normal bowel sounds. negative: Tenderness - Rectal Rectal exam: Deferred - exam: Deferred - Extremities Extremities exam: Normal inspection, Full ROM, Normal capillary refill, Other (1 + LE pitting edema, no redness, no tenderness with palpation. ). negative: Tenderness - Neurological Neurological exam: Alert, Normal gait, Oriented X3, Reflexes normal - Psychiatric Psychiatric exam: Normal affect, Normal mood - Skin Skin exam: Other (Right hip drsg- clean, dry, intact) H&P Results - Labs Result Diagrams: 01/07/18 07:07 01/07/18 07:07 Labs Last 24 Hours: Laboratory Results - last 24 hr 01/12/18 01/13/18 21:34 06:56 POC Glucose 187 H 127 H Discharge Potential - Discharge Needs Community Services Used Prior to Admission: Physical Therapy, Transportation Patient Discharge Plan Description: Return Home Community Services Needed at Discharge: Transportation Plan - Swing Bed Certification Initial Certification Due: 01/05/18 14 Day Re-Cert Due: 01/19/18 44 Day Re-Cert Due: 02/18/18 74 Day Re-Cert Due: 03/20/18 - Detailed Diagnosis and Plan (1) Physical deconditioning Current Visit: No Status: Acute Base Code: R53.81 - OTHER MALAISE Comment : 01/13/18- continues to improve. -Continues to work with PT/OT twice daily (2) Clostridium difficile infection Current Visit: Yes Status: Acute Base Code: B96.89 - OTH BACTERIAL AGENTS THE CAUSE OF DISEASES CLASSD [id number] Comment: 01/13/18- Pos c. diff reported on 01/05/18. Patient on day 7 of oral vanc. HAving one, formed stool daily, no abdominal pain -conitnue vanc with pharmacy dosing -repeat CMP tomorrow (3) Cough Current Visit: Yes Status: Acute Base Code: R05 - COUGH Comment: 01/13/18- patient deveoped cough last night that is productive of scant amounts of sputum. Started on mucinex and respiratory therapy is doing albuterol treatments q4H prn which seem to be working well. 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 Pain has remain controlled with percocet q4h prn and mobic 15mg daily. -discontinue mobic with h/o renal insufficiency and anticoagulation now that he is having better pain control. -f/u with Dr. 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
[2018-01-13] MEDS: BREO (FLUTICASONE/VILANTEROL) 200MCG/25MCG INHALER INH SCH (11:44)
[2018-01-13] MEDS: OXYCODONE/APAP 10MG-325MG TABLET PO PRN (14:25)
--- NOTE | 2018-01-13 14:30 | Physical Therapy Tx Note ---
Physical Therapy Tx Note - Treatment Note Tolerated: Good Total Time Spent With Patient: 35 Physical Therapy Tx Note: Detail (Pt was sitting in chair upon arrival. Pt states no new complaints this afternoon. Pt ambulated with 2 canes x 350 ft. without rest with standby assist only. Pt stated "just a little sore" on return trip to room. Pt completed ex's upon arrival to room, of standing hip abduction , heel raises, toe raises, hamstring curls. All while holding onto walker. Pt was able to complete 8 mini squats while holding walker. Pt then completed seated HS curl, LAQ, hip adduction all with manual resist to adjust as needed to increase resistance as vishnu. x 10 each bilateral. Pt completed seated hip abduction with green theraband x 10. Pt required verbal cues with ex's for technique. Pt states fatigued after ex's and a little sore, "but it feels good. " Pt returned to chair and call light left within reach.) Physical Therapy Problem List: Detail (1) Decreased strength and ROM as expected s/p R SONG 2) Increased pain in R Hip area 3) Ability to ascend/descend stairs not assessed 4) Inability to complete community distance ambulation.) Physical Therapy Goals: 1) The patient will increase strength in R LE to 4+/5 to increase functional ability inside the home. 2) The patient will be able to ascend/descend 3 stairs independently to safely enter the home. 3) The patient will decrease pain to 1-2/10 so that he will be able to complete ADLs/Gait activities without assistance. 4) The patient will be able to ambulate for over 350 feet without rest to complete household ambulation skills independently Prognosis: Good Physical Therapy Plan: The patient will be seen 1-2x/day M-F for gait training, LE ROM and Strengthening exercises, and stairclimbing.
[2018-01-13] MEDS: WARFARIN 1 MG TABLET PO SCH (16:20)
[2018-01-13] MEDS: SENNOSIDES/DOCUSATE SODIUM UD CAPSULE PO SCH (21:20)
[2018-01-13] MEDS: ATORVASTATIN 20 MG TABLET PO SCH (21:20)
[2018-01-13] MEDS: FAMOTIDINE 20MG TABLET PO SCH (21:20)
[2018-01-13] MEDS: LEVEMIR FLEXTOUCH 100 UNIT/ML INSULIN PEN SQ SCH (21:20)
[2018-01-14] MEDS: ALBUTEROL HFA 8 GM INHALER INH PRN (05:27)
[2018-01-14] MEDS: VANCOMYCIN HCL 1 GM VIAL PO SCH ×4 (05:31→23:00)
[2018-01-14] MEDS: ACETAMINOPHEN 500 MG TABLET PO PRN (05:34)
[2018-01-14] MEDS: LEVOTHYROXINE SODIUM 125 MCG TABLET PO SCH (06:03)
[2018-01-14 06:42] LABS: BASO % 0.2 % (0-6); EOS % 2.9 % (0-6); GRAN % 70.9 % (47-80); HEMATOCRIT 40.2 % (42.0-52.0); HEMOGLOBIN 12.4 gm/dl (14.0-18.0); LYMPH % 13.5 % (16-45); MEAN CELL VOLUME 88.4 fl (81-97); MEAN CORPUSCULAR HGB CONC 30.8 g/dl (32-36); MONO % 12.5 % (0-9); PLATELET COUNT 178 K/uL (130-400); RED BLOOD COUNT 4.55 M/uL (4.40-5.70); RED CELL DISTRIBUTION WIDTH 16.9 % (11.5-14.5); WHITE BLOOD COUNT W/O DIFF 5.6 K/uL (4.2-12.2)
[2018-01-14 06:51] LABS: MEAN CORPUSCULAR HEMOGLOBIN 27.2 pg (27-33)
[2018-01-14 07:02] LABS: ALB/GLOB RATIO 1.4 (1.1-1.8); ALBUMIN 4.1 g/dL (4.0-5.0); BILIRUBIN,TOTAL 0.6 mg/dL (0.2-1.0); CREATININE 1.7 mg/dL (0.7-1.2)
[2018-01-14] MEDS: POTASSIUM CHLORIDE 20 MEQ TABLET PO SCH ×3 (09:23→22:54)
[2018-01-14] MEDS: MAGNESIUM OXIDE 400 MG TABLET PO SCH (09:23)
[2018-01-14] MEDS: METOPROLOL SUCC 25 MG TAB.ER PO SCH (09:23)
[2018-01-14] MEDS: FERROUS SULFATE 325 MG TAB PO SCH ×4 (09:24→17:08)
[2018-01-14] MEDS: METOLAZONE 2.5 MG TABLET PO SCH (09:24)
[2018-01-14] MEDS: MULTIVITAMINS/MINERALS TABLET PO SCH (09:24)
[2018-01-14] MEDS: GUAIFENESIN 600 MG TABCR PO SCH (09:24)
[2018-01-14] MEDS: TAMSULOSIN HCL 0.4 MG CAP.ER.24H PO SCH (09:24)
[2018-01-14] MEDS: AMIODARONE HCL 200 MG TABLET PO SCH (09:27)
[2018-01-14] MEDS: BUMETANIDE 1 MG TABLET PO SCH ×4 (09:27→16:26)
[2018-01-14] MEDS: CHOLECALCIFEROL 1,000 UNIT TABLET PO SCH (09:27)
[2018-01-14] MEDS: ASCORBIC ACID 500 MG TAB PO SCH ×2 (09:27→22:54)
[2018-01-14] MEDS: BREO (FLUTICASONE/VILANTEROL) 200MCG/25MCG INHALER INH SCH (10:03)
--- NOTE | 2018-01-14 14:13 | Physical Therapy Tx Note ---
Physical Therapy Tx Note - Treatment Note Tolerated: Good Total Time Spent With Patient: 45 Physical Therapy Tx Note: Detail (Patient states no new complaints. Patient transferred sit to and from stand independently. Patient ambulated 177 feet with two canes SBA x1. Patient transferred sit to and from stand independently. Patient performed Nustep L1 x7 minutes. Patient transferred sit to and from stand independently. Patient ambulated 25 feet with two canes SBA x1. Patient transferred sit to and from supine indepenently. Patient performed the following exercises: LAQ x20, seated marching x12, glut squeezes x15, heel slides x5, scapular squeezes x20, cervical rotation x15, and chin tucks x20. Patient unable to lie reclined for extended period of time due to chest congestion. Patient transferred sit to and from stand independently. Patient ambulated 186 feet with two canes SBA x1. Patient transferred sit to and from stand independently. Patient tolerated treatment well. Patient reports fatigued after treatment. Patient was left seated in chair with call light within reach.) Physical Therapy Problem List: Detail (1) Decreased strength and ROM as expected s/p R SONG 2) Increased pain in R Hip area 3) Ability to ascend/descend stairs not assessed 4) Inability to complete community distance ambulation.) Physical Therapy Goals: 1) The patient will increase strength in R LE to 4+/5 to increase functional ability inside the home. 2) The patient will be able to ascend/descend 3 stairs independently to safely enter the home. 3) The patient will decrease pain to 1-2/10 so that he will be able to complete ADLs/Gait activities without assistance. 4) The patient will be able to ambulate for over 350 feet without rest to complete household ambulation skills independently Prognosis: Good Physical Therapy Plan: The patient will be seen 1-2x/day M-F for gait training, LE ROM and Strengthening exercises, and stairclimbing.
--- NOTE | 2018-01-14 15:18 | Physical Therapy Tx Note ---
Physical Therapy Tx Note - Treatment Note Tolerated: Good Total Time Spent With Patient: 30 Physical Therapy Tx Note: Detail (Patient states left groin sore this afternoon. Patient transferred sit to and from stand independently. Patient ambulated 122 feet with two canes SBA x1. Patient performed the following exercises: standing hip abduction x10, standing hip extension x10, standing heel raises x20, standing toe raises x20, seated hip abduction with blue theraband x20, isometric hip adduction x20, and abdominal isometrics x10. Patient tolerated treatment well. Patient reports sore and tired after treatment. Patient was left seated in chair with call light within reach.) Physical Therapy Problem List: Detail (1) Decreased strength and ROM as expected s/p R SONG 2) Increased pain in R Hip area 3) Ability to ascend/descend stairs not assessed 4) Inability to complete community distance ambulation.) Physical Therapy Goals: 1) The patient will increase strength in R LE to 4+/5 to increase functional ability inside the home. 2) The patient will be able to ascend/descend 3 stairs independently to safely enter the home. 3) The patient will decrease pain to 1-2/10 so that he will be able to complete ADLs/Gait activities without assistance. 4) The patient will be able to ambulate for over 350 feet without rest to complete household ambulation skills independently Prognosis: Good Physical Therapy Plan: The patient will be seen 1-2x/day M-F for gait training, LE ROM and Strengthening exercises, and stairclimbing.
[2018-01-14] MEDS: WARFARIN 1 MG TABLET PO SCH (16:25)
[2018-01-14] MEDS: ATORVASTATIN 20 MG TABLET PO SCH (22:54)
[2018-01-14] MEDS: FAMOTIDINE 20MG TABLET PO SCH (22:54)
[2018-01-14] MEDS: GUAIFENESIN 1,200 MG TABLET PO SCH (22:55)
[2018-01-14] MEDS: SENNOSIDES/DOCUSATE SODIUM UD CAPSULE PO SCH (22:55)
[2018-01-14] MEDS: LEVEMIR FLEXTOUCH 100 UNIT/ML INSULIN PEN SQ SCH (22:56)
[2018-01-15] MEDS: ALBUTEROL HFA 8 GM INHALER INH PRN ×3 (01:52→10:43)
[2018-01-15] MEDS: BREO (FLUTICASONE/VILANTEROL) 200MCG/25MCG INHALER INH SCH ×3 (05:54→10:42)
[2018-01-15] MEDS: LEVOTHYROXINE SODIUM 125 MCG TABLET PO SCH (06:08)
[2018-01-15] MEDS: VANCOMYCIN HCL 1 GM VIAL PO SCH ×3 (06:08→20:16)
[2018-01-15] MEDS: FERROUS SULFATE 325 MG TAB PO SCH ×3 (08:01→20:11)
[2018-01-15 09:20] LABS: INR 2.1; PROTHROMBIN TIME (PATIENT) 22.5 SECONDS (9.5-12.1)
[2018-01-15 09:48] LABS: INR 2.1; PROTHROMBIN TIME (PATIENT) 22.5 SECONDS (9.5-12.1)
[2018-01-15] MEDS: CHOLECALCIFEROL 1,000 UNIT TABLET PO SCH (10:12)
[2018-01-15] MEDS: POTASSIUM CHLORIDE 20 MEQ TABLET PO SCH ×3 (10:13→22:43)
[2018-01-15] MEDS: MULTIVITAMINS/MINERALS TABLET PO SCH (10:13)
[2018-01-15] MEDS: GUAIFENESIN 1,200 MG TABLET PO SCH ×2 (10:13→22:43)
[2018-01-15] MEDS: BUMETANIDE 1 MG TABLET PO SCH ×2 (10:14→16:36)
[2018-01-15] MEDS: METOPROLOL SUCC 25 MG TAB.ER PO SCH (10:14)
[2018-01-15] MEDS: ASCORBIC ACID 500 MG TAB PO SCH ×2 (10:14→22:43)
[2018-01-15] MEDS: AMIODARONE HCL 200 MG TABLET PO SCH (10:15)
[2018-01-15] MEDS: METOLAZONE 2.5 MG TABLET PO SCH (10:15)
[2018-01-15] MEDS: TAMSULOSIN HCL 0.4 MG CAP.ER.24H PO SCH (10:15)
[2018-01-15] MEDS: MAGNESIUM OXIDE 400 MG TABLET PO SCH (10:15)
[2018-01-15] MEDS: ACETAMINOPHEN 500 MG TABLET PO PRN (10:29)
--- NOTE | 2018-01-15 14:48 | Physical Therapy Tx Note ---
Physical Therapy Tx Note - Treatment Note Tolerated: Good Total Time Spent With Patient: 60 Physical Therapy Tx Note: Detail (Patient states left hamstring sore today. Patient transferred sit to and from stand independently. Patient ambulated 300 feet with two canes. Patient performed the following exercises x20 reps each: LAQ, seated hip abduction with blue theraband, standing toe raises, standing heel raises, rowing with green theraband, shoulder external rotation with red theraband, shoulder extension with red theraband, shoulder abduction with red theraband, and standing hip abduction x10. Patient tolerated treatment well. Patient reports right hip, left hamstring, and shoulders sore after treatment. Patient was left seated with call light within reach.) Physical Therapy Problem List: Detail (1) Decreased strength and ROM as expected s/p R SONG 2) Increased pain in R Hip area 3) Ability to ascend/descend stairs not assessed 4) Inability to complete community distance ambulation.) Physical Therapy Goals: 1) The patient will increase strength in R LE to 4+/5 to increase functional ability inside the home. 2) The patient will be able to ascend/descend 3 stairs independently to safely enter the home. 3) The patient will decrease pain to 1-2/10 so that he will be able to complete ADLs/Gait activities without assistance. 4) The patient will be able to ambulate for over 350 feet without rest to complete household ambulation skills independently Prognosis: Good Physical Therapy Plan: The patient will be seen 1-2x/day M-F for gait training, LE ROM and Strengthening exercises, and stairclimbing.
[2018-01-15] MEDS: WARFARIN 1 MG TABLET PO SCH (16:34)
[2018-01-15] MEDS: ATORVASTATIN 20 MG TABLET PO SCH (22:43)
[2018-01-15] MEDS: FAMOTIDINE 20MG TABLET PO SCH (22:43)
[2018-01-15] MEDS: SENNOSIDES/DOCUSATE SODIUM UD CAPSULE PO SCH (22:45)
[2018-01-15] MEDS: LEVEMIR FLEXTOUCH 100 UNIT/ML INSULIN PEN SQ SCH (22:49)
[2018-01-16] MEDS: VANCOMYCIN HCL 1 GM VIAL PO SCH ×2 (00:06→06:08)
[2018-01-16] MEDS: ALBUTEROL HFA 8 GM INHALER INH PRN ×2 (00:20→21:25)
[2018-01-16] MEDS: LEVOTHYROXINE SODIUM 125 MCG TABLET PO SCH (06:10)
[2018-01-16] MEDS: ACETAMINOPHEN 500 MG TABLET PO PRN (08:00)
[2018-01-16] MEDS: FERROUS SULFATE 325 MG TAB PO SCH ×3 (08:00→17:26)
--- NOTE | 2018-01-16 09:37 | Physical Therapy Tx Note ---
Physical Therapy Tx Note - Treatment Note Tolerated: Good Total Time Spent With Patient: 30 Physical Therapy Tx Note: Detail (The patient was sitting in his chair upon arrival. The patient was independent with sit to stand. He was able to ambulate from his room to the [facility] and back, with 2 small breaks due to increased L groin pain. He used 2 canes and required supervision only. Upon return to his room, he completed 20 reps of the following exercises: Heel Raises, toe raises, standing hip extension, standing hip abduction, seated LAQ (with blue and red band), and Seated hamstring curl (with blue and red band). He complained of fatigue toward the end of treatment, but otherwise tolerated exercises well. He was left in his chair with his call light in reach.) Physical Therapy Problem List: Detail (1) Decreased strength and ROM as expected s/p R SONG 2) Increased pain in R Hip area 3) Ability to ascend/descend stairs not assessed 4) Inability to complete community distance ambulation.) Physical Therapy Goals: 1) The patient will increase strength in R LE to 4+/5 to increase functional ability inside the home. 2) The patient will be able to ascend/descend 3 stairs independently to safely enter the home. 3) The patient will decrease pain to 1-2/10 so that he will be able to complete ADLs/Gait activities without assistance. 4) The patient will be able to ambulate for over 350 feet without rest to complete household ambulation skills independently Prognosis: Good Physical Therapy Plan: The patient will be seen 1-2x/day M-F for gait training, LE ROM and Strengthening exercises, and stairclimbing.
[2018-01-16] MEDS: BUMETANIDE 1 MG TABLET PO SCH ×2 (09:45→16:56)
[2018-01-16] MEDS: MULTIVITAMINS/MINERALS TABLET PO SCH (09:46)
[2018-01-16] MEDS: POTASSIUM CHLORIDE 20 MEQ TABLET PO SCH ×3 (09:46→21:38)
[2018-01-16] MEDS: CHOLECALCIFEROL 1,000 UNIT TABLET PO SCH (09:48)
[2018-01-16] MEDS: METOLAZONE 2.5 MG TABLET PO SCH (09:50)
[2018-01-16] MEDS: AMIODARONE HCL 200 MG TABLET PO SCH (09:50)
[2018-01-16] MEDS: METOPROLOL SUCC 25 MG TAB.ER PO SCH (09:50)
[2018-01-16] MEDS: TAMSULOSIN HCL 0.4 MG CAP.ER.24H PO SCH (09:50)
[2018-01-16] MEDS: ASCORBIC ACID 500 MG TAB PO SCH ×2 (09:51→21:38)
[2018-01-16] MEDS: MAGNESIUM OXIDE 400 MG TABLET PO SCH (09:51)
[2018-01-16] MEDS: GUAIFENESIN 1,200 MG TABLET PO SCH ×2 (09:51→21:38)
[2018-01-16] MEDS: BREO (FLUTICASONE/VILANTEROL) 200MCG/25MCG INHALER INH SCH (10:42)
--- NOTE | 2018-01-16 14:25 | Physical Therapy Tx Note ---
Physical Therapy Tx Note - Treatment Note Tolerated: Good Total Time Spent With Patient: 30 Physical Therapy Tx Note: Detail (Patient states left groin feeling better this afternoon, shoulders sore. Patient transferred sit to and from stand independently. Patient ambulated 220 feet with two canes SBA x1. Patient performed the following exercise x15-20 reps each with red theraband: shoulder external rotation, shoulder internal rotation, bicep curls, tricep extension, and rowing. Patient transferred sit to stand independently. Patient ambulated 10 feet with wheeled walker. Patient tolerated treatment well. Patient reports shoulders fatigued after treatment. Patient was left standing with walker in room.) Physical Therapy Problem List: Detail (1) Decreased strength and ROM as expected s/p R SONG 2) Increased pain in R Hip area 3) Ability to ascend/descend stairs not assessed 4) Inability to complete community distance ambulation.) Physical Therapy Goals: 1) The patient will increase strength in R LE to 4+/5 to increase functional ability inside the home. 2) The patient will be able to ascend/descend 3 stairs independently to safely enter the home. 3) The patient will decrease pain to 1-2/10 so that he will be able to complete ADLs/Gait activities without assistance. 4) The patient will be able to ambulate for over 350 feet without rest to complete household ambulation skills independently Prognosis: Good Physical Therapy Plan: The patient will be seen 1-2x/day M-F for gait training, LE ROM and Strengthening exercises, and stairclimbing.
[2018-01-16] MEDS: WARFARIN 1 MG TABLET PO SCH (16:56)
[2018-01-16] MEDS: CEPHALEXIN 500 MG CAPSULE PO SCH ×2 (17:25→21:37)
[2018-01-16] MEDS: OXYCODONE/APAP 10MG-325MG TABLET PO PRN ×2 (18:38→22:19)
[2018-01-16] MEDS: BIFIDOBACTERIUM INFANTIS 4 MG CAPSULE PO SCH (21:38)
[2018-01-16] MEDS: ATORVASTATIN 20 MG TABLET PO SCH (21:38)
[2018-01-16] MEDS: FAMOTIDINE 20MG TABLET PO SCH (21:38)
[2018-01-16] MEDS: LEVEMIR FLEXTOUCH 100 UNIT/ML INSULIN PEN SQ SCH (21:40)
[2018-01-16] MEDS: SENNOSIDES/DOCUSATE SODIUM UD CAPSULE PO SCH (21:43)
[2018-01-16] MEDS ORDERED: TMP/SMZ 160MG/800MG TAB PO SCH (22:00)
[2018-01-17] MEDS: CEPHALEXIN 500 MG CAPSULE PO SCH ×3 (05:36→22:32)
[2018-01-17] MEDS: LEVOTHYROXINE SODIUM 125 MCG TABLET PO SCH (06:06)
[2018-01-17] MEDS: FERROUS SULFATE 325 MG TAB PO SCH ×3 (08:50→17:29)
[2018-01-17] MEDS: BIFIDOBACTERIUM INFANTIS 4 MG CAPSULE PO SCH (09:24)
[2018-01-17] MEDS: BUMETANIDE 1 MG TABLET PO SCH ×2 (09:27→16:09)
[2018-01-17] MEDS: ASCORBIC ACID 500 MG TAB PO SCH ×2 (09:28→22:31)
[2018-01-17] MEDS: MAGNESIUM OXIDE 400 MG TABLET PO SCH (09:28)
[2018-01-17] MEDS: TAMSULOSIN HCL 0.4 MG CAP.ER.24H PO SCH (09:28)
[2018-01-17] MEDS: MULTIVITAMINS/MINERALS TABLET PO SCH (09:28)
[2018-01-17] MEDS: GUAIFENESIN 1,200 MG TABLET PO SCH ×2 (09:29→22:31)
[2018-01-17] MEDS: POTASSIUM CHLORIDE 20 MEQ TABLET PO SCH ×3 (09:29→22:31)
[2018-01-17] MEDS: METOPROLOL SUCC 25 MG TAB.ER PO SCH (09:29)
[2018-01-17] MEDS: METOLAZONE 2.5 MG TABLET PO SCH (09:30)
[2018-01-17] MEDS: CHOLECALCIFEROL 1,000 UNIT TABLET PO SCH (09:30)
[2018-01-17] MEDS: AMIODARONE HCL 200 MG TABLET PO SCH (09:30)
[2018-01-17] MEDS: BREO (FLUTICASONE/VILANTEROL) 200MCG/25MCG INHALER INH SCH (10:00)
[2018-01-17] MEDS: WARFARIN 1 MG TABLET PO SCH (16:09)
[2018-01-17] MEDS: LEVEMIR FLEXTOUCH 100 UNIT/ML INSULIN PEN SQ SCH (22:28)
[2018-01-17] MEDS: SENNOSIDES/DOCUSATE SODIUM UD CAPSULE PO SCH (22:31)
[2018-01-17] MEDS: FAMOTIDINE 20MG TABLET PO SCH (22:31)
[2018-01-17] MEDS: ATORVASTATIN 20 MG TABLET PO SCH (22:31)
[2018-01-18] MEDS: ALBUTEROL HFA 8 GM INHALER INH PRN ×2 (00:10→10:18)
[2018-01-18] MEDS: CEPHALEXIN 500 MG CAPSULE PO SCH ×3 (06:43→22:18)
[2018-01-18] MEDS: LEVOTHYROXINE SODIUM 125 MCG TABLET PO SCH (06:43)
[2018-01-18] MEDS: FERROUS SULFATE 325 MG TAB PO SCH ×3 (08:37→17:34)
[2018-01-18] MEDS: BUMETANIDE 1 MG TABLET PO SCH ×2 (09:53→16:04)
[2018-01-18] MEDS: MULTIVITAMINS/MINERALS TABLET PO SCH (09:53)
[2018-01-18] MEDS: MAGNESIUM OXIDE 400 MG TABLET PO SCH (09:54)
[2018-01-18] MEDS: METOLAZONE 2.5 MG TABLET PO SCH (09:54)
[2018-01-18] MEDS: AMIODARONE HCL 200 MG TABLET PO SCH (09:54)
[2018-01-18] MEDS: METOPROLOL SUCC 25 MG TAB.ER PO SCH (09:55)
[2018-01-18] MEDS: CHOLECALCIFEROL 1,000 UNIT TABLET PO SCH (09:55)
[2018-01-18] MEDS: TAMSULOSIN HCL 0.4 MG CAP.ER.24H PO SCH (09:56)
[2018-01-18] MEDS: POTASSIUM CHLORIDE 20 MEQ TABLET PO SCH ×3 (09:56→22:16)
[2018-01-18] MEDS: BIFIDOBACTERIUM INFANTIS 4 MG CAPSULE PO SCH (09:56)
[2018-01-18] MEDS: ASCORBIC ACID 500 MG TAB PO SCH ×2 (09:57→22:16)
[2018-01-18] MEDS: GUAIFENESIN 1,200 MG TABLET PO SCH ×2 (09:57→22:16)
[2018-01-18] MEDS: BREO (FLUTICASONE/VILANTEROL) 200MCG/25MCG INHALER INH SCH (10:17)
[2018-01-18] MEDS: WARFARIN 1 MG TABLET PO SCH (16:06)
[2018-01-18] MEDS: ATORVASTATIN 20 MG TABLET PO SCH (22:16)
[2018-01-18] MEDS: FAMOTIDINE 20MG TABLET PO SCH (22:16)
[2018-01-18] MEDS: LEVEMIR FLEXTOUCH 100 UNIT/ML INSULIN PEN SQ SCH (22:21)
[2018-01-18] MEDS: SENNOSIDES/DOCUSATE SODIUM UD CAPSULE PO SCH (22:21)
[2018-01-19] MEDS: LEVOTHYROXINE SODIUM 125 MCG TABLET PO SCH (06:17)
[2018-01-19] MEDS: CEPHALEXIN 500 MG CAPSULE PO SCH ×2 (06:17→14:26)
--- NOTE | 2018-01-19 07:23 | Discharge Summary ---
Providers Discharge Summary Date: 01/19/18 Date of admission: 01/05/18 17:56 Expected Date of Discharge: 01/19/18 Attending physician: SNEHAL VERMA Primary care physician: Alejo Agosto Physical Exam - Vital Signs Vital Signs: Vital Signs - Last 24 Hrs Temp Pulse Pulse Resp BP Pulse Ox 01/18/18 20:00 97.9 F 83 16 95/61 97 01/18/18 10:20 83 17 95 01/18/18 07:53 97.3 F L 84 16 91/56 96 - General General Appearance: Alert, Oriented x3, Cooperative, No acute distress - Head Head exam: Normal inspection - Eye Eye exam: Normal appearance, PERRL - ENT ENT exam: Normal exam - Respiratory Respiratory exam: Decreased breath sounds (chronic), Prolonged expiratory. negative: Accessory muscle use, Rales, Respiratory distress - Cardiovascular Cardiovascular Exam: Regular rate, Normal rhythm, Systolic murmur - GI/Abdominal GI/Abdominal exam: Soft, Normal bowel sounds. negative: Tenderness - Rectal Rectal exam: Deferred - exam: Deferred - Extremities Extremities exam: Normal inspection, Full ROM, Normal capillary refill, Other (1 + LE pitting edema, no redness, no tenderness with palpation. ). negative: Tenderness - Neurological Neurological exam: Alert, Normal gait, Oriented X3, Reflexes normal - Psychiatric Psychiatric exam: Normal affect, Normal mood - Skin Skin exam: Other (Right hip drsg- clean, dry, intact) Hospitalization - Hospitalization Admission Diagnosis: Multiple rehab services s/p SONG - Problem List (1) Physical deconditioning Current Visit: No Status: Acute Base Code: R53.81 - OTHER MALAISE Comment : 01/19/18- continues to improve. -plan to discharge home today. -patient will continue therapy with home pt/ot (2) Clostridium difficile infection Current Visit: Yes Status: Acute Base Code: B96.89 - OT BACTERIAL AGENTS THE CAUSE OF DISEASES CLASSD ELSWHR Comment: 01/19/18- Pos c. diff reported on 01/05/18. Patient having formed stool currently. -will have him continue daily probiotic. unfortunately he will be on 6 months of oral antibiotics due to positive cultures from his right hip. -He will need to follow closely with pcp for any recurring symptoms. Follow up scheduled 01/21/18 (3) Status post revision of total hip Current Visit: No Status: Acute Base Code: Z96.649 - PRESENCE OF UNSPECIFIED ARTIFICIAL HIP JOINT Comment: 01/19/18: s/p right total hip revision arthroplasty on 01/02/18. -spoke with Regla at Dr. Velazquez's office. Intraoperative Culture from right hip returned 01/05/18 showed anaerobic gram positives. Patient was contacted by their office on 01/16/18 to start bactrim and keflex, however, no order was sent to [facility] and there was some confusion from patient as to why those were called in. I contacted Dr. Velazquez's office today 01/19/18 and confirmed he was to start both for a duration of 6 months. They are aware of his h/o c.diff. Will initiate therapy today. He will need to have his INR rechecked in 48H after starting bactrim. -f/u with Dr. 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 Will need repeat in 48H since starting bactrim. Patient will do this as outpatient with his coumadin clinic - Hospitalization Course Disposition: Home Health Service Reason For Discharge/Transfer: Medical Stability Hospital Course: Mr. Simms is a 77 y/o male patient well known to this service with multiple comorbidities resulting in a protracted hospital course, which include diastolic heart failure, non-rheumatic mitral valve disease, diabetes mellitus II, chronic atrial fibrillation, hypothyroidism amongst other things. He was admitted to swing bed here at [facility] on 01/05/18 s/p right total hip arthroplasty on 01/02/[address] Velazquez. 01/06/18 1100: Pt. is sitting up in his chair. He states he is doing well and his pain has been well-controlled with mobic 15mg daily and prn percocet. He was evaluated by PT/OT last evening and began treatment today. He has been up independently with his walker. His stool was positive for c. diff at [facility] ( resulted just today), he will be started on PO vanco- pharmacy to dose. Plan to continue PT/OT for 10-14 days here. 01/19/18- Patient has done well through his stay. He finished his course of oral vanc and has had normal, formed stool for almost a week now. He has done well with therapy and will continue pt/ot at home upon discharge. His cough and intermittent SOB did improve following mucinex and vibratory valve use. He says he occasionally gets a little bit of white mucous up but feeling much better. His legs have not increased in size and he denies any redness, pain etc. Someone from Dr. Velazquez's office did contact patient on Friday evening and had told him he needed to start antibiotic therapy. There was some confusion as to the indication for this as it was about 2 weeks since his surgery. No order was sent to [facility]. I contacted Dr. Velazquez's office this morning and apparently cultures from the right hip came back positive for anaerobic gram positives. We did start him today on both the keflex and bactrim. he has had some serosanguinous drainage from the right hip but nothing purulent and no overlying skin changes. He will be taking the abx for 6 months and he will have his INR rechecked in 48H after starting the bactrim. Overall, patient is feeling ready to go home Abnormal Labs: Abnormal Lab Results 01/05/18 01/07/18 01/07/18 Range/Units Unknown 06:55 07:07 Hgb 12.0 L (14.0-18.0) gm/dl Hct 39.5 L (42.0-52.0) % MCH 26.9 L (27-33) pg MCHC 30.4 L (32-36) g/dl RDW 15.8 H (11.5-14.5) % MPV (7.4-10.4) fl Lymphocytes % (16-45) % Monocytes % 12.0 H (0-9) % Eosinophils % 7.4 H (0-6) % PT 18.9 H (9.5-12.1) SECONDS Chloride (98-107) mmol/L Carbon Dioxide (22-29) mmol/L BUN (8-23) mg/dL Creatinine (0.7-1.2) mg/dL POC Glucose (70-110) mg/dL Random Glucose (74-109) mg/dL Total Protein (6.6-8.7) g/dL Albumin (4.0-5.0) g/dL C. difficile Ag & Toxin Detected H (NOT DETECT) 01/07/18 01/07/18 01/08/18 Range/Units 07:07 07:48 07:30 Hgb (14.0-18.0) gm/dl Hct (42.0-52.0) % MCH (27-33) pg MCHC (32-36) g/dl RDW (11.5-14.5) % MPV (7.4-10.4) fl Lymphocytes % (16-45) % Monocytes % (0-9) % Eosinophils % (0-6) % PT (9.5-12.1) SECONDS Chloride 93 L (98-107) mmol/L Carbon Dioxide 41.0 H (22-29) mmol/L BUN 54 H (8-23) mg/dL Creatinine 1.5 H (0.7-1.2) mg/dL POC Glucose 123 H 122 H (70-110) mg/dL Random Glucose 124 H (74-109) mg/dL Total Protein 5.9 L (6.6-8.7) g/dL Albumin 3.6 L (4.0-5.0) g/dL C. difficile Ag & Toxin (NOT DETECT) 01/09/18 01/09/18 01/10/18 Range/Units 06:50 22:00 07:30 Hgb (14.0-18.0) gm/dl Hct (42.0-52.0) % MCH (27-33) pg MCHC (32-36) g/dl RDW (11.5-14.5) % MPV (7.4-10.4) fl Lymphocytes % (16-45) % Monocytes % (0-9) % Eosinophils % (0-6) % PT 21.3 H (9.5-12.1) SECONDS Chloride (98-107) mmol/L Carbon Dioxide (22-29) mmol/L BUN (8-23) mg/dL Creatinine (0.7-1.2) mg/dL POC Glucose 168 H 125 H (70-110) mg/dL Random Glucose (74-109) mg/dL Total Protein (6.6-8.7) g/dL Albumin (4.0-5.0) g/dL C. difficile Ag & Toxin (NOT DETECT) 01/11/18 01/11/18 01/11/18 Range/Units 08:00 09:33 22:30 Hgb (14.0-18.0) gm/dl Hct (42.0-52.0) % MCH (27-33) pg MCHC (32-36) g/dl RDW (11.5-14.5) % MPV (7.4-10.4) fl Lymphocytes % (16-45) % Monocytes % (0-9) % Eosinophils % (0-6) % PT 22.1 H (9.5-12.1) SECONDS Chloride (98-107) mmol/L Carbon Dioxide (22-29) mmol/L BUN (8-23) mg/dL Creatinine (0.7-1.2) mg/dL POC Glucose 124 H 161 H (70-110) mg/dL Random Glucose (74-109) mg/dL Total Protein (6.6-8.7) g/dL Albumin (4.0-5.0) g/dL C. difficile Ag & Toxin (NOT DETECT) 01/12/18 01/12/18 01/13/18 Range/Units 07:00 21:34 06:56 Hgb (14.0-18.0) gm/dl Hct (42.0-52.0) % MCH (27-33) pg MCHC (32-36) g/dl RDW (11.5-14.5) % MPV (7.4-10.4) fl Lymphocytes % (16-45) % Monocytes % (0-9) % Eosinophils % (0-6) % PT (9.5-12.1) SECONDS Chloride (98-107) mmol/L Carbon Dioxide (22-29) mmol/L BUN (8-23) mg/dL Creatinine (0.7-1.2) mg/dL POC Glucose 131 H 187 H 127 H (70-110) mg/dL Random Glucose (74-109) mg/dL Total Protein (6.6-8.7) g/dL Albumin (4.0-5.0) g/dL C. difficile Ag & Toxin (NOT DETECT) 01/13/18 01/14/18 01/14/18 Range/Units 22:00 06:20 06:20 Hgb 12.4 L (14.0-18.0) gm/dl Hct 40.2 L (42.0-52.0) % MCH (27-33) pg MCHC 30.8 L (32-36) g/dl RDW 16.9 H (11.5-14.5) % MPV 11.0 H (7.4-10.4) fl Lymphocytes % 13.5 L (16-45) % Monocytes % 12.5 H (0-9) % Eosinophils % (0-6) % PT (9.5-12.1) SECONDS Chloride 91 L (98-107) mmol/L Carbon Dioxide 36.0 H (22-29) mmol/L BUN 54 H (8-23) mg/dL Creatinine 1.7 H (0.7-1.2) mg/dL POC Glucose 187 H (70-110) mg/dL Random Glucose 127 H (74-109) mg/dL Total Protein (6.6-8.7) g/dL Albumin (4.0-5.0) g/dL C. difficile Ag & Toxin (NOT DETECT) 01/14/18 01/14/18 01/14/18 Range/Units 06:50 08:45 22:00 Hgb (14.0-18.0) gm/dl Hct (42.0-52.0) % MCH (27-33) pg MCHC (32-36) g/dl RDW (11.5-14.5) % MPV (7.4-10.4) fl Lymphocytes % (16-45) % Monocytes % (0-9) % Eosinophils % (0-6) % PT 22.5 H (9.5-12.1) SECONDS Chloride (98-107) mmol/L Carbon Dioxide (22-29) mmol/L BUN (8-23) mg/dL Creatinine (0.7-1.2) mg/dL POC Glucose 142 H 136 H (70-110) mg/dL Random Glucose (74-109) mg/dL Total Protein (6.6-8.7) g/dL Albumin (4.0-5.0) g/dL C. difficile Ag & Toxin (NOT DETECT) 01/15/18 01/15/18 01/15/18 Range/Units 07:30 09:04 23:06 Hgb (14.0-18.0) gm/dl Hct (42.0-52.0) % MCH (27-33) pg MCHC (32-36) g/dl RDW (11.5-14.5) % MPV (7.4-10.4) fl Lymphocytes % (16-45) % Monocytes % (0-9) % Eosinophils % (0-6) % PT 22.5 H (9.5-12.1) SECONDS Chloride (98-107) mmol/L Carbon Dioxide (22-29) mmol/L BUN (8-23) mg/dL Creatinine (0.7-1.2) mg/dL POC Glucose 118 H 127 H (70-110) mg/dL Random Glucose (74-109) mg/dL Total Protein (6.6-8.7) g/dL Albumin (4.0-5.0) g/dL C. difficile Ag & Toxin (NOT DETECT) 01/16/18 01/16/18 01/16/18 Range/Units 07:13 17:03 21:20 Hgb (14.0-18.0) gm/dl Hct (42.0-52.0) % MCH (27-33) pg MCHC (32-36) g/dl RDW (11.5-14.5) % MPV (7.4-10.4) fl Lymphocytes % (16-45) % Monocytes % (0-9) % Eosinophils % (0-6) % PT (9.5-12.1) SECONDS Chloride (98-107) mmol/L Carbon Dioxide (22-29) mmol/L BUN (8-23) mg/dL Creatinine (0.7-1.2) mg/dL POC Glucose 115 H 135 H 174 H (70-110) mg/dL Random Glucose (74-109) mg/dL Total Protein (6.6-8.7) g/dL Albumin (4.0-5.0) g/dL C. difficile Ag & Toxin (NOT DETECT) 01/17/18 01/18/18 Range/Units 22:21 22:29 Hgb (14.0-18.0) gm/dl Hct (42.0-52.0) % MCH (27-33) pg MCHC (32-36) g/dl RDW (11.5-14.5) % MPV (7.4-10.4) fl Lymphocytes % (16-45) % Monocytes % (0-9) % Eosinophils % (0-6) % PT (9.5-12.1) SECONDS Chloride (98-107) mmol/L Carbon Dioxide (22-29) mmol/L BUN (8-23) mg/dL Creatinine (0.7-1.2) mg/dL POC Glucose 153 H 168 H (70-110) mg/dL Random Glucose (74-109) mg/dL Total Protein (6.6-8.7) g/dL Albumin (4.0-5.0) g/dL C. difficile Ag & Toxin (NOT DETECT) Condition at Discharge: (2) Stable Discharge Medications - Discharge Medications Prescriptions: Bifidobacterium Infantis [Align] 4 mg PO DAILY #30 capsule Home Medications: Ambulatory Orders Ascorbic Acid [Vitamin C] 1,000 mg PO BID 11/02/16 [Last Taken 04/14/17] Ferrous Sulfate 325 mg PO DAILY 11/02/16 [Last Taken 04/14/17] Hydromorphone HCl [Dilaudid] 1 mg PO CONT 11/02/16 [Last Taken 04/15/17] Insulin Detemir [Levemir] 6 unit SQ QHS 11/02/16 [Last Taken 04/14/17] Multivit-Min/FA/Lycopen/Lutein [Centrum Silver Tablet] 1 each PO DAILY 11/02/16 [Last Taken 04/14/17] Oxycodone HCl/Acetaminophen [Percocet 10mg/325mg] 1 - 2 tab PO Q4H PRN 11/02/16 [Last Taken 04/14/17] Tamsulosin HCl [Flomax] 0.4 mg PO DAILY 11/02/16 [Last Taken 04/14/17] Warfarin Sodium [Coumadin] 3 mg PO DAILY 11/02/16 [Last Taken 09/03/17 17:00] Cholecalciferol (Vitamin D3) [Vitamin D3] 5,000 unit PO DAILY 02/25/17 [Last Taken 04/14/17] Clotrimazole/Betamethasone Dip [Clotrimazole-Betamethasone Crm] 15 gm TP BID [Last Taken 04/14/17] Levalbuterol Tartrate [Xopenex Hfa] 2 puff INH RESP.Q6H PRN 02/25/17 [Last Taken 04/14/17] Sennosides/Docusate Sodium [Senna-Docusate Sodium Tablet] 2 each PO QHS [Last Taken 04/14/17] Fluticasone/Salmeterol [Advair 250-50 Diskus] 1 each IH BID 09/07/17 [Last Taken Unknown] Bumetanide [Bumex] 2 mg PO BIDDIUR tablet 09/22/17 [Last Taken Unknown] Levothyroxine Sodium [Synthroid] 125 mcg PO DAILYTHY tablet 09/22/17 [Last Taken Unknown] Oxycodone HCl/Acetaminophen [Percocet 10mg/325mg] 1 each PO Q4H PRN tablet [Last Taken Unknown] Oxycodone HCl/Acetaminophen [Percocet 5mg/325mg] 1 udtab PO Q6H PRN tablet [Last Taken Unknown] Atorvastatin Calcium 20 mg PO DAILY #30 tablet 11/13/17 [Last Taken Unknown] Magnesium 400 mg PO DAILY #0 11/13/17 [Last Taken 04/14/17] Metolazone [Zaroxolyn] 2.5 mg PO DAILY #30 tablet 11/13/17 [Last Taken Unknown] Metoprolol Succinate [Toprol Xl] 12.5 mg PO DAILY #30 tab.er.24h 11/13/17 [Last Taken Unknown] Potassium Chloride [Klor-Con] 40 meq PO TIDAC #180 tablet.sa 11/13/17 [Last Taken Unknown] Bifidobacterium Infantis [Align] 4 mg PO DAILY #30 capsule 01/19/18 [Last Taken Unknown] Discharge Plan - Discharge Instructions Activity at Discharge: Resume Usual Activities As Tolerated Diet at Discharge: Diabetic Diet Additional Instructions: Follow up with Dr. Velazquez on 01/27/18 at 1:45pm Follow up with your primary care this Friday01/21/18. Please have your INR redrawn in 48 hours Please brain picker the prescriptions Dr. Velazquez sent to your pharmacy. These will be taken for a duration of 6 months. Continue Keflex 500mg by mouth three times daily continue Bactrim DS twice daily continue probiotic daily Please call with any questions or concerns Quality Measures - Quality Measures Quality Measures: Advance Directives, Documentation of Current Medications in Medical Record, Elder Maltreatment Screen and Follow-Up Plan, Heart Failure, Screening for High Blood Pressure and F/U Documented - Current Medications Quality Measure: Measure #130: Documentation of Current Medications Documentation of Current Medications: <Current Medications Documented/Reviewed> [G4835] - Blood Pressure Screening Quality Measure: Screening for High Blood Pressure and Follow-Up Documented Does Patient Have Any of the Following: Active Dx of HTN Blood Pressure Classification: Normal BP Reading Systolic Measurement: 88 Diastolic Measurement: 50 Screening for High Blood Pressure: Patient Exclusion, Hx of HTN [G9744] - Heart Failure (MARLENY/ARB Therapy) Quality Measure: Heart Failure Left Ventricular Systolic Function: Unknown MARLENY Inhibitor or ARB Therapy for LVSD: Not Eligible - Heart Failure (Beta-shreyas Therapy) Quality Measure: Heart Failure Left Ventricular Systolic Function: Unknown Beta-Shreyas Therapy for LVEF < 40%: Not Eligible - Advance Directives Quality Measure: Measure #47: Care Plan Advance Directives Established: Yes Advance Directives Information Provided To Patient: Yes Advance Directives on File: No Living Will: Yes Power of Furniture Inspector: Yes Power of Furniture Inspector Name: Emelyn Advance Care Planning: <Care Plan/Decision Maker Documented; Discussed & Documented> [7345M] - Elder Abuse Suspicion Index Screening: Elder Abuse Suspicion Index Screening Rely on people for bathing, dressing, shopping, banking, etc: Yes Prevented from getting food, clothes, medication, etc: No Made to feel shamed or threatened by someone: No Forced to sign papers or use money against will: No Feel afraid, touched in ways not wanted or hurt physically: No Poor eye contact, withdrawn, malnourished, cuts or bruises: No Screening Result: Negative result EASI Reference Information: Tony MAE, Johnnie C, Sonam D, Nely Ford.Development and validation of a tool to assist physicians identification of elder abuse: The Elder Abuse Suspicion Index (EASI ). Journal of Elder Abuse and Neglect, 2008; 20 (3): 276-300. - Elder Maltreatment Screen Quality Measures: Elder Maltreatment Screen and Follow-Up Plan Elder Maltreatment Screen: <Negative, No Follow-Up Plan Required> [L7645]
[2018-01-19] MEDS: FERROUS SULFATE 325 MG TAB PO SCH ×2 (07:55→12:56)
--- NOTE | 2018-01-19 09:48 | Rehab Discharge Summary ---
Patient Information - Patient Information Diagnosis: s/p R SONG Ordered Treatment: PT Evaluate and Treat Surgery: Yes (R SONG) Past Medical/Surgical Hx: PAST MEDICAL/SURGICAL HISTORY Past Surgical History pump trial with dilaudid implanted cath ( permanent device in place) Back surgery X5, neck surgery, Hip & shoulder sx ,Bunionectomy,bilat right hip replacement, AICD , abscess rt thigh, septic hip, hematoma rt thigh , revision x2, evac of hematoma post rt hip; lumbar rhizotomy 05/31/15. permanent pain pump 2015 C2-3 lminectomy 09/19 rt hip arthroplasty 01/18 PMH - Respiratory Hx Respiratory Disorders Yes Hx Asthma Yes Hx Bronchitis No Hx Chronic Obstructive Yes Pulmonary Disease (COPD) Hx Dyspnea Yes Hx Pneumonia Yes: 1989, current 2016 Hx Pulmonary Embolism No Hx Sleep Apnea No Hx Tuberculosis No Hx of CPAP No Hx of SOB Yes: CHF PMH - Cardiovascular Hx Cardiovascular Disorders Yes Hx Abnormal EKG Yes Hx Cardiac Catheterization No Hx Chest Pain No Hx Congestive Heart Failure Yes Hx Deep Vein Thrombosis Yes: 20 years ago after being kicked by a cow, current rt ankle 01/2017 Hx Edema Yes: bilat legs recent hospitalization Hx Heart Attack No Hx Hypertension Yes Hx Irregular Heartbeat Yes: hx a fib had cardioversion 1990 & 01/2017 Hx Palpitations No Hx Pacemaker/Defibrillator Yes: 2014 Hx Vascular Disease Yes Hx Transient Ischemic Attacks No (TIA) Comment: hospitalizations states cardiac arrest during past hospitalization 07/18 PMH - Neuro Hx Neurological Disorders No Hx Brain Tumor No Hx Cerebrovascular Accident No Hx Dementia No Hx Dizziness No Hx Headaches No Hx Neuropathy Yes Hx Parkinson's Disease No Hx Seizures No: denies Hx Speech Problem No Hx Syncope No Hx Transient Ischemic Attacks No (TIA) PMH - GI Hx Gastrointestinal Disorders No Hx Abdominal Pain No Hx Celiac Disease No Hx Crohn's Disease No Hx Diverticulitis No Hx Gastrointestinal Bleed No Hx Gastroesophageal Reflux No: denies reflux Hx Hepatitis/Jaundice No Hx Hiatal Hernia No Hx Irritable Bowel No Hx Liver Disease No Hx Nausea/Vomiting No Hx Obstructive Bowel No Hx Pancreatitis No Hx Rectal Bleeding No Hx Ulcer No Hx Weight Loss/Weight Gain No PMH - Hx Genitourinary Disorders Yes Hx Bladder Problem No Hx Kidney Stones No Hx Prostate Problems No: pt states no but on flomax Hx Renal Disease Yes Hx Urinary Tract Infection No PMH - Endocrine Hx Endocrine Disorders Yes Hx Diabetes Yes Hx Thyroid Disease No Hx of NIDDM Yes Hx of IDDM No Comment: checks blood sugars bid (100-140)/ulcers on feet due to poor circulation PMH - Musculoskeletal Hx Musculoskeletal Disorders Yes Hx Arthritis Yes Hx Back Injury Yes Hx Fibromyalgia No Hx Gout No Hx Musculoskeletal Disease Yes Hx Osteoporosis No Comment: chronic pain; hx septic hip in past PMH - Psych Hx Psychiatric Problems No Hx Anxiety No Hx Behavior Problems No Hx Depression No Hx Emotional Abuse No Hx Sexual Abuse No Hx Suicide Attempt No PMH - Hematology/Oncology Hx Hematology/Oncology Yes Disorders Hx Anemia Yes Hx Blood Disorders No Hx Bruising Yes Hx Cancer Yes: skin Hx Clotting Problems Yes Hx Sickle Cell Disease No Hx Unexplained Bleeding No Hx Blood Transfusion Reaction No Comment: pt to bridge with Lovenox 4 days preop Social History: Detail (The patient lives alone in a one story home with 3 steps at the entrance and one handrail. The patient has two bathrooms, one with a shower stall and elevated toilet seat with grab bars and one with a tub/ shower combo and standard toilet with grab bars. Pt was Ind with all ADLs and IADLs with the exception of donning socks. His daughter assists with this and she is available for other tasks as needed. Pt has assembler chassis, sock aid and velcro shoes.) Precautions: [place] (Contact Precautions), Other (SONG Precautions, isolation precautions) - Time With Patient Total Time Spent With Patient (Min): 40 Treatment Procedures: Detail (Ther. Ex x 3) Subjective Information - Subjective Information Per Patient (The patient states that the right hip is feeling fine today, but has some increased pain in the left hip that started over the weekend. Since initial evaluation, he says that he feels stronger, and is ready to go home soon.) Objective Data - Pain Pain Present: Yes (R Hip) Pain Intensity: 3 Pain Scale Used: Numeric (1 - 10) - Mental Status Patient Orientation: Oriented x3 - ROM Within normal limits (Gross LE ROM assessed - WNL Bilateral) - Strength/Tone Within normal limits (B Knee Flexion/Extension 4+/5, B Ankle Plantar/ Dorsiflexion 5/5, R Hip Flexion 3+/5, L Hip Flexion 4+/5, R Hip Flexion 3+/5, R Hip Abduction 4/5, L Hip Abduction 4+/5) - Bed Mobility Independent (Reports no difficulty with bed mobility) - Transfers Independent (Independent from sit to stand and stand to sit.) - Balance Balance Sitting: Good (No reports of LOB with sitting exercises or static sitting.) Balance Standing: Good (No LOB with standing exercises or gait activities) - Gait Detail (The patient was able to ambulate from his room to the [facility] and back ( about 250 feet total) with supervision and use of 2 canes. He reported a mild increase in pain with gait activities. The patient was able to ascend/descend 3 steps with use of rails and cane independently.) Therapy Assessment - Therapy Assessment Detail (The patient progressed well with inpatient physical therapy. The patient was independent with bed mobility, transfers, and only required supervision for gait activities. The patient still has strength deficits, and would benefit from further home physical therapy to increase functional ability , strength in the LEs, and safety in the home environment.) Patient Education - Patient Education Teaching Topic: Exercise/Activity (The patient was independent in HEP, which included: LAQ and Hamstring curls in seated (red and blue band), standing heel/ toe raises, standing hip abduction, and standing hip extension. The patient completed 20-25 reps of each exercises. He was instructed to complete exercises to tolerance.) Response: Return Demonstration, Verbalize Understanding Teaching Method: Discussion, Demonstration Teaching Recipient: Patient Barriers To Learning: None Problem List - Problem List Physical Therapy Problem List: Detail (1) Decreased strength and ROM as expected s/p R SONG 2) Increased pain in R Hip area.) Occupational Therapy Problem List: Detail (1. Decreased Ind with showering.) Goals - Goals Physical Therapy Goals: 1) The patient will increase strength in R LE to 4+/5 to increase functional ability inside the home - PARTIALLY MET. 2) The patient will be able to ascend/descend 3 stairs independently to safely enter the home - MET. 3) The patient will decrease pain to 1-2/10 so that he will be able to complete ADLs/Gait activities without assistance - PARTIALLY MET - Still has complaints of 3-4/10 level. 4) The patient will be able to ambulate for over 350 feet without rest to complete household ambulation skills independently - MET Occupational Therapy Goals: 1. Pt will be safe and Ind with showering in sitting while maintaining total hip precautions. Prognosis - Prognosis Good Plan - Plan Physical Therapy Plan: The patient is discharging from inpatient physical therapy at this time, and is beginning home physical therapy upon discharge. Occupational Therapy Plan: OT 1-3 visits to assess safety with showering/ dressing. Provide ongoing HEP for UE ROM and strength as needed.
[2018-01-19] MEDS: BREO (FLUTICASONE/VILANTEROL) 200MCG/25MCG INHALER INH SCH (09:56)
[2018-01-19] MEDS: GUAIFENESIN 1,200 MG TABLET PO SCH (10:14)
[2018-01-19] MEDS: MULTIVITAMINS/MINERALS TABLET PO SCH (10:14)
[2018-01-19] MEDS: POTASSIUM CHLORIDE 20 MEQ TABLET PO SCH (10:14)
[2018-01-19] MEDS: BIFIDOBACTERIUM INFANTIS 4 MG CAPSULE PO SCH (10:14)
[2018-01-19] MEDS: METOPROLOL SUCC 25 MG TAB.ER PO SCH (10:14)
[2018-01-19] MEDS: CHOLECALCIFEROL 1,000 UNIT TABLET PO SCH (10:15)
[2018-01-19] MEDS: BUMETANIDE 1 MG TABLET PO SCH (10:15)
[2018-01-19] MEDS: TAMSULOSIN HCL 0.4 MG CAP.ER.24H PO SCH (10:15)
[2018-01-19] MEDS: AMIODARONE HCL 200 MG TABLET PO SCH (10:15)
[2018-01-19] MEDS: ASCORBIC ACID 500 MG TAB PO SCH (10:15)
[2018-01-19] MEDS: METOLAZONE 2.5 MG TABLET PO SCH (10:15)
[2018-01-19] MEDS: MAGNESIUM OXIDE 400 MG TABLET PO SCH (10:16)
[2018-01-19 10:21] LABS: INR 2.8; PROTHROMBIN TIME (PATIENT) 30.8 SECONDS (9.5-12.1)
[2018-01-19 10:25] LABS: CREATININE 1.4 mg/dL (0.7-1.2)
--- NOTE | 2018-01-19 13:51 | Rehab Discharge Summary ---
Patient Information - Patient Information Diagnosis: s/p R SONG Ordered Treatment: OT Evaluate and Treat Surgery: Yes (R SONG) Past Medical/Surgical Hx: PAST MEDICAL/SURGICAL HISTORY Past Surgical History pump trial with dilaudid implanted cath ( permanent device in place) Back surgery X5, neck surgery, Hip & shoulder sx ,Bunionectomy,bilat right hip replacement, AICD , abscess rt thigh, septic hip, hematoma rt thigh , revision x2, evac of hematoma post rt hip; lumbar rhizotomy 05/31/15. permanent pain pump 2015 C2-3 lminectomy 09/19 rt hip arthroplasty 01/18 PMH - Respiratory Hx Respiratory Disorders Yes Hx Asthma Yes Hx Bronchitis No Hx Chronic Obstructive Yes Pulmonary Disease (COPD) Hx Dyspnea Yes Hx Pneumonia Yes: 1989, current 2016 Hx Pulmonary Embolism No Hx Sleep Apnea No Hx Tuberculosis No Hx of CPAP No Hx of SOB Yes: CHF PMH - Cardiovascular Hx Cardiovascular Disorders Yes Hx Abnormal EKG Yes Hx Cardiac Catheterization No Hx Chest Pain No Hx Congestive Heart Failure Yes Hx Deep Vein Thrombosis Yes: 20 years ago after being kicked by a cow, current rt ankle 01/2017 Hx Edema Yes: bilat legs recent hospitalization Hx Heart Attack No Hx Hypertension Yes Hx Irregular Heartbeat Yes: hx a fib had cardioversion 1990 & 01/2017 Hx Palpitations No Hx Pacemaker/Defibrillator Yes: 2014 Hx Vascular Disease Yes Hx Transient Ischemic Attacks No (TIA) Comment: hospitalizations states cardiac arrest during past hospitalization 07/18 PMH - Neuro Hx Neurological Disorders No Hx Brain Tumor No Hx Cerebrovascular Accident No Hx Dementia No Hx Dizziness No Hx Headaches No Hx Neuropathy Yes Hx Parkinson's Disease No Hx Seizures No: denies Hx Speech Problem No Hx Syncope No Hx Transient Ischemic Attacks No (TIA) PMH - GI Hx Gastrointestinal Disorders No Hx Abdominal Pain No Hx Celiac Disease No Hx Crohn's Disease No Hx Diverticulitis No Hx Gastrointestinal Bleed No Hx Gastroesophageal Reflux No: denies reflux Hx Hepatitis/Jaundice No Hx Hiatal Hernia No Hx Irritable Bowel No Hx Liver Disease No Hx Nausea/Vomiting No Hx Obstructive Bowel No Hx Pancreatitis No Hx Rectal Bleeding No Hx Ulcer No Hx Weight Loss/Weight Gain No PMH - Hx Genitourinary Disorders Yes Hx Bladder Problem No Hx Kidney Stones No Hx Prostate Problems No: pt states no but on flomax Hx Renal Disease Yes Hx Urinary Tract Infection No PMH - Endocrine Hx Endocrine Disorders Yes Hx Diabetes Yes Hx Thyroid Disease No Hx of NIDDM Yes Hx of IDDM No Comment: checks blood sugars bid (100-140)/ulcers on feet due to poor circulation PMH - Musculoskeletal Hx Musculoskeletal Disorders Yes Hx Arthritis Yes Hx Back Injury Yes Hx Fibromyalgia No Hx Gout No Hx Musculoskeletal Disease Yes Hx Osteoporosis No Comment: chronic pain; hx septic hip in past PMH - Psych Hx Psychiatric Problems No Hx Anxiety No Hx Behavior Problems No Hx Depression No Hx Emotional Abuse No Hx Sexual Abuse No Hx Suicide Attempt No PMH - Hematology/Oncology Hx Hematology/Oncology Yes Disorders Hx Anemia Yes Hx Blood Disorders No Hx Bruising Yes Hx Cancer Yes: skin Hx Clotting Problems Yes Hx Sickle Cell Disease No Hx Unexplained Bleeding No Hx Blood Transfusion Reaction No Comment: pt to bridge with Lovenox 4 days preop Social History: Detail (The patient lives alone in a one story home with 3 steps at the entrance and one handrail. The patient has two bathrooms, one with a shower stall and elevated toilet seat with grab bars and one with a tub/ shower combo and standard toilet with grab bars. Pt was Ind with all ADLs and IADLs with the exception of donning socks. His daughter assists with this and she is available for other tasks as needed. Pt has collating machine operator, sock aid and velcro shoes.) Precautions: [place] (Contact Precautions), Other (SONG Precautions, isolation precautions) Objective Data - Pain Pain Present: Yes (right hip) - Mental Status Patient Orientation: Oriented x3 - Visual Perception Appears within normal limits for therapeutic activities - ROM Not within normal limits (Ozzy shoulder ROM limited from premorbid injuries/ surgeries. Ozzy elbow, wrist and hand AROM WNL.) - Strength/Tone Not within normal limits (Ozzy shoulder MMT 4/5, ozzy elbow, wrist and principal automation engineer 5/5) - Coordination Appears within normal limits for therapeutic activities - Bed Mobility Independent - Transfers Independent - Balance Balance Sitting: Good Balance Standing: Good - Sensation Intact - Gait Detail (Ambulating in room with 2 canes Indly.) - ADL's/IADL's Detail (Ind with showering and total body dressing using collating machine operator with exception of socks and shoes which his daughter assists with. Pt has all adaptive equipment including collating machine operator, sock aid and long sponge.) Therapy Assessment - Therapy Assessment Detail (Pt is safe and Ind with ADLs and functional mobility.) Problem List - Problem List Physical Therapy Problem List: Detail (1) Decreased strength and ROM as expected s/p R SONG 2) Increased pain in R Hip area.) Occupational Therapy Problem List: Detail (1. Decreased Ind with showering.) Goals - Goals Physical Therapy Goals: 1) The patient will increase strength in R LE to 4+/5 to increase functional ability inside the home - PARTIALLY MET. 2) The patient will be able to ascend/descend 3 stairs independently to safely enter the home - MET. 3) The patient will decrease pain to 1-2/10 so that he will be able to complete ADLs/Gait activities without assistance - PARTIALLY MET - Still has complaints of 3-4/10 level. 4) The patient will be able to ambulate for over 350 feet without rest to complete household ambulation skills independently - MET Occupational Therapy Goals: Goals Met: 1. Pt will be safe and Ind with showering in sitting while maintaining total hip precautions. Prognosis - Prognosis Good Plan - Plan Physical Therapy Plan: The patient is discharging from inpatient physical therapy at this time, and is beginning home physical therapy upon discharge. Occupational Therapy Plan: Pt discharged home with home therapy.
[2018-01-19] MEDS ORDERED: WARFARIN 1 MG TABLET PO SCH (16:00)
== END 2018-01-19 16:00 | disposition home health service (06) | DRG 948 ==
LOC: MEDSURG 17:56
PROVIDERS: ADMIT Internal Medicine; ATTEND Internal Medicine
DX: R53.81 Other malaise (principal); I50.30 Unspecified diastolic (congestive) heart failure; Z96.641 Presence of right artificial hip joint; R05 Cough; Z79.01 Long term (current) use of anticoagulants; I34.9 Nonrheumatic mitral valve disorder, unspecified; E11.9 Type 2 diabetes mellitus without complications; I48.2 Chronic atrial fibrillation; E03.9 Hypothyroidism, unspecified; J44.9 Chronic obstructive pulmonary disease, unspecified; M19.92 Post-traumatic osteoarthritis, unspecified site; I25.2 Old myocardial infarction; Z95.0 Presence of cardiac pacemaker; G89.29 Other chronic pain; D64.9 Anemia, unspecified; Z85.820 Personal history of malignant melanoma of skin; Z87.891 Personal history of nicotine dependence; Z79.4 Long term (current) use of insulin
CPT/HCPCS: 36416; 80048; 80053; 82948; 85025; 85610; 87493; 94640; 97110; 97116; 97530; 97535; 99306; 99309; 99316

== ENCOUNTER 2018-02-24 16:28 | Inpatient (IN) | payer MEDICARE, OTHER ==
[~2018-02-24 16:28] MED LIST changes: +ALBUTEROL HFA 8 GM INHALER INH PRN; -BUMETANIDE IVP SCH; -SODIUM CHLORIDE 0.9% IVP SCH
[2018-02-24] MEDS: FERROUS SULFATE 325 MG TAB PO SCH (20:20)
[2018-02-24] MEDS: CEPHALEXIN 500 MG CAPSULE PO SCH (23:03)
[2018-02-24] MEDS: ASCORBIC ACID 500 MG TAB PO SCH (23:03)
[2018-02-24] MEDS: SENNOSIDES/DOCUSATE SODIUM UD CAPSULE PO SCH (23:03)
[2018-02-24] MEDS: FAMOTIDINE 20MG TABLET PO SCH (23:03)
[2018-02-24] MEDS: POLYETHYLENE GLY 17 GM PACKET PO SCH (23:04)
[2018-02-24] MEDS: ATORVASTATIN 20 MG TABLET PO SCH (23:04)
[2018-02-24] MEDS: LEVEMIR FLEXTOUCH 100 UNIT/ML INSULIN PEN SQ SCH (23:23)
[2018-02-25] MEDS: OXYCODONE/APAP 10MG-325MG TABLET PO PRN ×3 (03:40→16:54)
[2018-02-25 06:51] LABS: INR 4.1
[2018-02-25 06:53] LABS: PROTHROMBIN TIME (PATIENT) 44.8 SECONDS (9.5-12.1)
[2018-02-25 06:58] LABS: CREATININE 1.6 mg/dL (0.7-1.2)
[2018-02-25] MEDS ORDERED: LEVOTHYROXINE SODIUM 125 MCG TABLET PO SCH (07:00)
[2018-02-25] MEDS: FERROUS SULFATE 325 MG TAB PO SCH ×3 (07:25→16:55)
--- NOTE | 2018-02-25 09:28 | History & Physical ---
History of Present Illness - Date Date of Service for History & Physical: 02/25/18 - History of Present Illness Admitting Diagnosis: post dislocation rt hip. deconditioning History of Present Illness: Patient had a right hip replaced january and than february he dislocated his right hip. Ortho is Dr. Rawls, He currently is on keflex for 6 months because they found some bacteria in the hip joint area per patient. Cardiac status is stable. Previous to this he was at home. Reviewed discharge papers from [facility] holding coumadin because INR up slightly, Daily INR till it is stable. Patient is to use a brace to keep his hip from dislocating when he is up and he has some swelling of his legs and wearing compression socks. General - Cognitive Patterns Orientation: Oriented x3, Person, Place, Time, Responds to Name, Recognizes Familiar Faces or Places, Knows Own Daily Schedule - Communication Preferred Language?: Danish Public Finance Specialist Required: No Preferred Method of Learning: Reading Comprehension Ability: No Impairment Able to Read: Yes Able to Write: Yes Select best description of speech pattern: Clear Speech Understanding verbal content: Understands - Psychosocial Well-Being Usual Living Arrangement: Alone - Dental Status Unable to examine: No Broken or loosely fitting full or partial dentures: No No natural teeth or tooth fragment(s) (edentulous): No Abnormal mouth tissue (ulcers, masses, oral lesions, etc.): No Obvious or likely cavity or broken natural teeth: No Inflamed or bleeding gums or loose natural teeth: No Mouth/facial pain, discomfort or difficulty chewing: No - Nutrition Screening Poor oral intake > 1 week: No Unplanned weight loss in specified time frame: No Nutrition Support via tube feedings or parenteral nutrition: No Pressure Ulcer: No Significantly underweight define as BMI <18.5 kg/m2: No Albumin <2.5mg/dL: No Persistent nausea/vomiting/diarrhea >3 days: No Difficulty chewing/swallowing/mouth sores: No Admitting Diagnosis: Yes Nutrition Risk Score: Low Risk Review of Systems Reviewed: No additional complaints except as noted below Constitutional: Reports: As per HPI. Denies: Chills, Fever, Malaise, Night sweats, Weakness, Weight change Eyes: Reports: As per HPI. Denies: Eye discharge, Eye pain, Photophobia, Vision change ENT: Reports: As per HPI. Denies: Congestion, Dental pain, Ear pain, Epistaxis , Hearing loss, Throat pain Respiratory: Reports: As per HPI. Denies: Cough, Dyspnea, Hemoptysis, Stridor, Wheezes Cardiovascular: Reports: As per HPI. Denies: Arrhythmia, Chest pain, Dyspnea on exertion, Edema, Murmurs, Orthopnea, Palpitations, Paroxysmal nocturnal dyspnea, Rheumatic Fever, Syncope Endocrine: Reports: As per HPI. Denies: Fatigue, Heat or cold intolerance, Polydipsia, Polyuria Gastrointestinal: Reports: As per HPI. Denies: Abdominal pain, Constipation, Diarrhea, Hematemesis, Hematochezia, Melena, Nausea, Vomiting Genitourinary: Reports: As per HPI. Denies: Dysuria, Frequency, Hematuria, Incontinence, Retention, Testicular pain, Testicular mass, Urgency Musculoskeletal: Reports: As per HPI. Denies: Arthralgia, Back pain, Gout, Joint swelling, Myalgia, Neck pain Skin: Reports: As per HPI. Denies: Bruising, Change in color, Change in hair/ nails, Lesions, Pruritus, Rash Neurological: Reports: As per HPI. Denies: Abnormal gait, Confusion, Headache, Numbness, Paresthesias, Seizure, Tingling, Tremors, Vertigo, Weakness Psychiatric: Reports: As per HPI. Denies: Anxiety, Auditory hallucinations, Depression, Homicidal thoughts, Suicidal thoughts, Visual hallucinations Hematological/Lymphatic: Reports: As per HPI. Denies: Anemia, Blood Clots, Easy bleeding, Easy bruising, Swollen glands Past Medical History - SOCIAL HISTORY Smoking Status: Former smoker - SURGICAL HISTORY Past Surgical History: pump trial with dilaudid implanted cath (permanent device in place). Back surgery X5, neck surgery, Hip & shoulder sx,Bunionectomy ,bilat right hip replacement, AICD, abscess rt thigh, septic hip, hematoma rt thigh, revision x2, evac of hematoma post rt hip;. lumbar rhizotomy 05/31/15. permanent pain pump 2015. C2-3 lminectomy 09/19. rt hip arthroplasty 01/18 - RESPIRATORY Hx Respiratory Disorders: Yes Hx Asthma: Yes Hx Bronchitis: No Hx COPD: Yes Hx Dyspnea: Yes Hx Pneumonia: Yes (1989, current 2016) Hx Pulmonary Embolism: No Hx Sleep Apnea: No Hx Tuberculosis: No Hx of CPAP: No - CARDIOVASCULAR Hx Cardio Disorders: Yes Hx Abnormal EKG: Yes Hx Cardiac Cath: No Hx Chest Pain: No Hx CHF: Yes Hx Deep Vein Thrombosis: Yes (20 years ago after being kicked by a cow, current rt ankle 01/2017) Hx Edema: Yes (bilat legs recent hospitalization) Hx Heart Attack: No Hx Hypertension: Yes Hx Irregular Heartbeat: Yes (hx a fib had cardioversion 1990 & 01/2017) Hx Palpitations: No Hx Pacemaker/Defib: Yes (2014) Hx Vascular Disease: Yes Comment:: hospitalizations states cardiac arrest during past hospitalization - NEURO Hx Neuro Disorders: No Hx Seizures: No (denies) - GI Hx GI Disorders: No Hx Abdominal Pain: No Hx Celiac Disease: No Hx Crohn's Disease: No Hx Diverticulitis: No Hx GI Bleed: No Hx Reflux: No (denies reflux) Hx Hepatitis/Jaundice: No Hx Hiatal Hernia: No Hx Irritable Bowel: No Hx Liver Disease: No Hx Nausea/Vomiting: No Hx Obstructive Bowel: No Hx Pancreatitis: No Hx Rectal Bleeding: No Hx Ulcer: No Hx Wt Loss/Wt Gain: No Hx of Polyps: No - Hx Genitourinary Disorders: Yes Hx Bladder Problem: No Hx Kidney Stones: No Hx Prostate Problems: No (pt states no but on flomax) Hx Renal Disease: Yes Hx UTI: No - ENDOCRINE Hx Endocrine Disorders: Yes Hx Diabetes: Yes - MUSCULOSKELETAL Hx Musculoskeletal Disorders: Yes Hx Arthritis: Yes Hx Back Injury: Yes Hx Fibromyalgia: No Hx Gout: No Hx Musculoskeletal Disease: Yes Hx Osteoporosis: No Comment:: chronic pain; hx septic hip in past - PSYCH Hx Psych Problems: No Hx Anxiety: No Hx Behavior Problems: No Hx Depression: No Hx Emotional Abuse: No Hx Sexual Abuse: No Hx Suicide Attempt: No - HEMATOLOGY/ONCOLOGY Hx Hematology/Oncology Disorders: Yes Hx Anemia: Yes Hx Blood Disorders: No Hx Bruising: Yes Hx Cancer: Yes (skin) Hx Clotting Problems: Yes Hx Sickle Cell Disease: No Hx Unexplained Bleeding: No Hx Blood Transfusions: Yes (with hip surgery, and hematoma) Hx Blood Transfusion Reaction: No Family Medical History Any Significant Family History?: Yes Hx Cancer: Father, Mother Hx Dementia: Mother *Dementia Comment: mother alzheimers H&P Meds/Allergies - Allergies Allergies: Allergies Allergy/AdvReac Type Severity Reaction Status Date / Time onion Allergy Intermediate NAUSEA Verified 01/30/16 14:13 - Home Medications Previous Rx's Medication Instructions Recorded Bumetanide [Bumex] 2 mg PO BIDDIUR tablet 09/22/17 Levothyroxine Sodium [Synthroid] 125 mcg PO DAILYTHY tablet 09/22/17 Oxycodone HCl/Acetaminophen 1 each PO Q4H PRN tablet 09/22/17 [Percocet 10mg/325mg] Oxycodone HCl/Acetaminophen 1 udtab PO Q6H PRN tablet 09/22/17 [Percocet 5mg/325mg] Atorvastatin Calcium 20 mg PO DAILY #30 tablet 11/13/17 Magnesium 400 mg PO DAILY #0 11/13/17 Metolazone [Zaroxolyn] 2.5 mg PO DAILY #30 tablet 11/13/17 Metoprolol Succinate [Toprol Xl] 12.5 mg PO DAILY #30 tab.er.24h 11/13/17 Potassium Chloride [Klor-Con] 40 meq PO TIDAC #180 tablet.sa 11/13/17 Bifidobacterium Infantis [Align] 4 mg PO DAILY #30 capsule 01/19/18 - Active Medications Active Medications: Current Medications Albuterol Sulfate (Ventolin Hfa) 2 puff INH Q4H PRN PRN Reason: shortness of breath Amiodarone HCl (Pacerone) 200 mg PO DAILY [facility] Ascorbic Acid (Vitamin C) 1,000 mg PO BID [facility] Last Admin: 02/24/18 23:03 Dose: 1,000 mg Atorvastatin Calcium (Lipitor) 20 mg PO QHS [facility] Last Admin: 02/24/18 23:04 Dose: 20 mg Cephalexin HCl (Keflex) 500 mg PO TID [facility] Stop: 03/06/18 22:01 Last Admin: 02/24/18 23:03 Dose: 500 mg Famotidine (Pepcid) 20 mg PO QHS [facility] Last Admin: 02/24/18 23:03 Dose: 20 mg Ferrous Sulfate (Iron) 325 mg PO WMEALS [facility] Last Admin: 02/25/18 07:25 Dose: 325 mg Insulin Detemir (Levemir Flextouch) 6 unit SQ QHS [facility] Last Admin: 02/24/18 23:23 Dose: 6 unit Levothyroxine Sodium (Synthroid) 125 mcg PO DAILYTHY [facility] Last Admin: 02/25/18 07:25 Dose: 125 mcg Magnesium Oxide (Mag Ox) 400 mg PO DAILY [facility] Metoprolol Succinate (Toprol Xl) 12.5 mg PO DAILY [facility] Multivitamins/Minerals (Centrum) 1 tab PO DAILY [facility] Oxycodone/Acetaminophen (Percocet 10-325 Mg Tablet) 1 each PO Q6H PRN PRN Reason: Pain Last Admin: 02/25/18 03:40 Dose: 1 each Polyethylene Glycol (Miralax) 17 gm PO QHS [facility] Last Admin: 02/24/18 23:04 Dose: 17 gm Senna/Docusate Sodium (Senna Plus) 2 each PO QHS [facility] Last Admin: 02/24/18 23:03 Dose: 2 each Tamsulosin HCl (Flomax) 0.4 mg PO QHS [facility] Vitamin D (Vitamin D3) 5,000 unit PO DAILY [facility] Warfarin Sodium (Coumadin) 2 mg PO [id number] [facility] Physical Exam - Vital Signs Vital Signs: Vital Signs - Last 24 Hrs Temp Pulse Resp BP Pulse Ox 02/24/18 20:00 97.5 F L 84 20 143/79 97 - General General Appearance: Alert, Oriented x3, Cooperative, No acute distress - Head Head exam: Normal inspection - Eye Eye exam: Normal appearance, PERRL Pupils: Normal accommodation - ENT ENT exam: Normal exam, Mucous membranes moist, Normal external ear exam, Normal orophraynx, TM's normal bilaterally Ear exam: Normal external inspection. negative: External canal tenderness Nasal Exam: Normal inspection. negative: Discharge, Sinus tenderness Mouth exam: Normal external inspection, Tongue normal Teeth exam: Normal inspection. negative: Dental caries Throat exam: Normal inspection. negative: Tonsillar erythema, Tonsillar exudate - Neck Neck exam: Normal inspection, Full ROM. negative: Tenderness - Respiratory Respiratory exam: Normal lung sounds bilaterally. negative: Respiratory distress - Cardiovascular Cardiovascular Exam: Regular rate, Normal rhythm, Normal heart sounds - GI/Abdominal GI/Abdominal exam: Soft, Normal bowel sounds. negative: Tenderness - Rectal Rectal exam: Deferred - exam: Deferred - Extremities Extremities exam: Normal inspection, Full ROM, Normal capillary refill, Pedal edema (one plus both legs). negative: Tenderness - Back Back exam: Reports: Normal inspection, Full ROM. Denies: Muscle spasm, Rash noted, Tenderness - Neurological Neurological exam: Alert, Normal gait, Oriented X3, Reflexes normal - Psychiatric Psychiatric exam: Normal affect, Normal mood - Skin Skin exam: Dry, Intact, Normal color, Warm H&P Results - Labs Result Diagrams: 02/25/18 06:30 Labs Last 24 Hours: Laboratory Results - last 24 hr 02/24/18 02/25/18 02/25/18 23:00 06:30 06:30 PT 44.8 H* INR 4.1 Sodium 141 Potassium 3.0 L Chloride 93 L Carbon Dioxide 36.0 H Anion Gap 12.0 BUN 49 H Creatinine 1.6 H Estimated GFR 45 POC Glucose 217 H Random Glucose 144 H Calcium 8.7 L 02/25/18 07:42 PT INR Sodium Potassium Chloride Carbon Dioxide Anion Gap BUN Creatinine Estimated GFR POC Glucose 125 H Random Glucose Calcium Discharge Potential - Discharge Needs Community Services Used Prior to Admission: Transportation Patient Discharge Plan Description: Return Home Community Services Needed at Discharge: Transportation Plan - Swing Bed Certification Initial Certification Due: 02/24/18 14 Day Re-Cert Due: 03/10/18 44 Day Re-Cert Due: 04/09/18 74 Day Re-Cert Due: 05/09/18 - Detailed Diagnosis and Plan (1) History of dislocation of hip Current Visit: Yes Status: Acute Base Code: Z87.39 - PERSONAL HISTORY OF DISEASES OF THE MS SYS AND CONN TISS Priority: High (2) Physical deconditioning Current Visit: No Status: Acute Base Code: R53.81 - OTHER MALAISE Priority : High Comment: (3) COPD (chronic obstructive pulmonary disease) Current Visit: No Status: Acute Base Code: J44.9 - CHRONIC OBSTRUCTIVE PULMONARY DISEASE, UNSPECIFIED (4) Bilateral lower extremity edema Current Visit: No Status: Acute Base Code: R60.0 - LOCALIZED EDEMA (5) H/O total hip arthroplasty Current Visit: No Status: Acute Base Code: Z96.649 - PRESENCE OF UNSPECIFIED ARTIFICIAL HIP JOINT (6) Hypokalemia Current Visit: No Status: Acute Base Code: E87.6 - HYPOKALEMIA (7) manager intermediate current use of anticoagulant Current Visit: No Status: Acute Base Code: Z79.01 - USP (CURRENT) USE OF ANTICOAGULANTS Comment: (8) Acute worsening of stage 3 chronic kidney disease Current Visit: No Status: Chronic Base Code: N18.3 - CHRONIC KIDNEY DISEASE , STAGE 3 (MODERATE) Comment: - avoid nephrotoxic agents and fluid challenge with caution.
[2018-02-25] MEDS: BREO (FLUTICASONE/VILANTEROL) 200MCG/25MCG INHALER INH SCH (09:55)
[2018-02-25] MEDS ORDERED: BUMETANIDE 1 MG TABLET PO SCH ×2 (10:00→16:00)
[2018-02-25] MEDS ORDERED: TAMSULOSIN HCL 0.4 MG CAP.ER.24H PO SCH (10:00)
[2018-02-25] MEDS ORDERED: MAGNESIUM OXIDE 400 MG TABLET PO SCH (10:00)
[2018-02-25] MEDS: METOPROLOL SUCC 25 MG TAB.ER PO SCH (10:01)
[2018-02-25] MEDS: CEPHALEXIN 500 MG CAPSULE PO SCH ×3 (10:02→22:57)
[2018-02-25] MEDS: ASCORBIC ACID 500 MG TAB PO SCH ×2 (10:02→22:57)
[2018-02-25] MEDS: MULTIVITAMINS/MINERALS TABLET PO SCH (10:02)
[2018-02-25] MEDS: AMIODARONE HCL 200 MG TABLET PO SCH (10:02)
[2018-02-25] MEDS: CHOLECALCIFEROL 1,000 UNIT TABLET PO SCH (10:03)
[2018-02-25] MEDS: POTASSIUM CHLORIDE 20 MEQ TABLET PO SCH ×2 (10:04→22:57)
[2018-02-25] MEDS: MAGNESIUM OXIDE 400 MG TABLET PO SCH ×2 (11:34→22:57)
--- NOTE | 2018-02-25 12:05 | Rehab Evaluation ---
Patient Information - Patient Information Diagnosis: s/p dislocation right hip, deconditioning Ordered Treatment: OT Evaluate and Treat Status: Initial Evaluation Surgery: Yes (SONG January,) History: Detail (Pt underwent a SONG in early January, with subsequent rehab. He was discharged home and was living Indly with some assist from daughter until February 22, 2018 when his hip dislocated.) Past Medical/Surgical Hx: PAST MEDICAL/SURGICAL HISTORY Past Surgical History pump trial with dilaudid implanted cath ( permanent device in place) Back surgery X5, neck surgery, Hip & shoulder sx ,Bunionectomy,bilat right hip replacement, AICD , abscess rt thigh, septic hip, hematoma rt thigh , revision x2, evac of hematoma post rt hip; lumbar rhizotomy 05/31/15. permanent pain pump 2015 C2-3 lminectomy 09/19 rt hip arthroplasty 01/18 PMH - Respiratory Hx Respiratory Disorders Yes Hx Asthma Yes Hx Bronchitis No Hx Chronic Obstructive Yes Pulmonary Disease (COPD) Hx Dyspnea Yes Hx Pneumonia Yes: 1989, current 2016 Hx Pulmonary Embolism No Hx Sleep Apnea No Hx Tuberculosis No Hx of CPAP No Hx of SOB Yes: CHF PMH - Cardiovascular Hx Cardiovascular Disorders Yes Hx Abnormal EKG Yes Hx Cardiac Catheterization No Hx Chest Pain No Hx Congestive Heart Failure Yes Hx Deep Vein Thrombosis Yes: 20 years ago after being kicked by a cow, current rt ankle 01/2017 Hx Edema Yes: bilat legs recent hospitalization Hx Heart Attack No Hx Hypertension Yes Hx Irregular Heartbeat Yes: hx a fib had cardioversion 1990 & 01/2017 Hx Palpitations No Hx Pacemaker/Defibrillator Yes: 2014 Hx Vascular Disease Yes Hx Transient Ischemic Attacks No (TIA) Comment: hospitalizations states cardiac arrest during past hospitalization 07/18 PMH - Neuro Hx Neurological Disorders No Hx Brain Tumor No Hx Cerebrovascular Accident No Hx Dementia No Hx Dizziness No Hx Headaches No Hx Neuropathy Yes Hx Parkinson's Disease No Hx Seizures No: denies Hx Speech Problem No Hx Syncope No Hx Transient Ischemic Attacks No (TIA) PMH - GI Hx Gastrointestinal Disorders No Hx Abdominal Pain No Hx Celiac Disease No Hx Crohn's Disease No Hx Diverticulitis No Hx Gastrointestinal Bleed No Hx Gastroesophageal Reflux No: denies reflux Hx Hepatitis/Jaundice No Hx Hiatal Hernia No Hx Irritable Bowel No Hx Liver Disease No Hx Nausea/Vomiting No Hx Obstructive Bowel No Hx Pancreatitis No Hx Rectal Bleeding No Hx Ulcer No Hx Weight Loss/Weight Gain No PMH - Hx Genitourinary Disorders Yes Hx Bladder Problem No Hx Kidney Stones No Hx Prostate Problems No: pt states no but on flomax Hx Renal Disease Yes Hx Urinary Tract Infection No PMH - Endocrine Hx Endocrine Disorders Yes Hx Diabetes Yes Hx Thyroid Disease No Hx of NIDDM Yes Hx of IDDM No Comment: checks blood sugars bid (100-140)/ulcers on feet due to poor circulation PMH - Musculoskeletal Hx Musculoskeletal Disorders Yes Hx Arthritis Yes Hx Back Injury Yes Hx Fibromyalgia No Hx Gout No Hx Musculoskeletal Disease Yes Hx Osteoporosis No Comment: chronic pain; hx septic hip in past PMH - Psych Hx Psychiatric Problems No Hx Anxiety No Hx Behavior Problems No Hx Depression No Hx Emotional Abuse No Hx Sexual Abuse No Hx Suicide Attempt No PMH - Hematology/Oncology Hx Hematology/Oncology Yes Disorders Hx Anemia Yes Hx Blood Disorders No Hx Bruising Yes Hx Cancer Yes: skin Hx Clotting Problems Yes Hx Sickle Cell Disease No Hx Unexplained Bleeding No Hx Blood Transfusion Reaction No Comment: pt to bridge with Lovenox 4 days preop Premorbid Status: Detail (Pt lives alone in a 1 story house with 3 steps and 1 handrailing at the entrance. He has a walk in shower and usually stands to shower. He has an elevated toilet with grab bars. He was Ind with all ADLs and most IADLs with the exception of socks which his daughter assisted with daily. He has a 2 wheeled walker, 2 reachers, sock aid and velcro shoes.) Social History: Detail (Very supportive daughter.) Precautions: [place], Fall, Other (Total hip precautions, isolation) - Time With Patient Total Time Spent With Patient (Min): 40 Treatment Procedures: Detail (OT eval low complexity) Subjective Information - Subjective Information Per Patient Objective Data - Pain Pain Present: Yes (5-04/12) - Mental Status Patient Orientation: Oriented x3 - Visual Perception Appears within normal limits for therapeutic activities - ROM Not within normal limits (Ozzy shoulder flexion limited due to premorbid injuries , ozzy elbow, wrist and hand AROM WNL) - Strength/Tone Not within normal limits (Ozzy shoulder strength 4/5, ozzy elbow and inside tester strength 4+/5) - Coordination Appears within normal limits for therapeutic activities - Transfers Independent (Ind with sit to stand) - Balance Balance Sitting: Good Balance Standing: Good - Sensation Intact - Gait Detail (Pt able to ambulate in hallway with 2 wheeled walker Indly using hip brace.) - ADL's/IADL's Detail (Pt reports he is able to complete self cares with use of adaptive equipment but has not showered yet. Pt required mod assist to doff velcro brace and don hip brace.) Therapy Assessment - Therapy Assessment Detail (Pt presents with functional UE strength, decreased Ind with donning/ doffing hip brace, and need to further assess ADLs.) Problem List - Problem List Occupational Therapy Problem List: Detail (1. Decreased Ind with self cares. 2. Decreased Ind with don/doffing hip brace.) Goals - Goals Occupational Therapy Goals: 1. Pt will be safe and Ind with total body dressing and showering using adaptive equipment as needed while maintaining hip precautions. 2. Pt will be Ind with don/doffing right hip brace. Prognosis - Prognosis Good Plan - Plan Occupational Therapy Plan: OT 2-4 days per week to address self cares and brace management to allow safe and Ind return home.
--- NOTE | 2018-02-25 16:29 | Rehab Evaluation ---
Patient Information - Patient Information Diagnosis: s/p dislocation right hip, deconditioning Ordered Treatment: PT Evaluate and Treat Surgery: Yes (SONG January,) History: Detail (Pt underwent a SONG in early January, with subsequent rehab. He was discharged home and was living Indly with some assist from daughter until February 22, 2018 when his hip dislocated.) Past Medical/Surgical Hx: PAST MEDICAL/SURGICAL HISTORY Past Surgical History pump trial with dilaudid implanted cath ( permanent device in place) Back surgery X5, neck surgery, Hip & shoulder sx ,Bunionectomy,bilat right hip replacement, AICD , abscess rt thigh, septic hip, hematoma rt thigh , revision x2, evac of hematoma post rt hip; lumbar rhizotomy 05/31/15. permanent pain pump 2015 C2-3 lminectomy 09/19 rt hip arthroplasty 01/18 PMH - Respiratory Hx Respiratory Disorders Yes Hx Asthma Yes Hx Bronchitis No Hx Chronic Obstructive Yes Pulmonary Disease (COPD) Hx Dyspnea Yes Hx Pneumonia Yes: 1989, current 2016 Hx Pulmonary Embolism No Hx Sleep Apnea No Hx Tuberculosis No Hx of CPAP No Hx of SOB Yes: CHF PMH - Cardiovascular Hx Cardiovascular Disorders Yes Hx Abnormal EKG Yes Hx Cardiac Catheterization No Hx Chest Pain No Hx Congestive Heart Failure Yes Hx Deep Vein Thrombosis Yes: 20 years ago after being kicked by a cow, current rt ankle 01/2017 Hx Edema Yes: bilat legs recent hospitalization Hx Heart Attack No Hx Hypertension Yes Hx Irregular Heartbeat Yes: hx a fib had cardioversion 1990 & 01/2017 Hx Palpitations No Hx Pacemaker/Defibrillator Yes: 2014 Hx Vascular Disease Yes Hx Transient Ischemic Attacks No (TIA) Comment: hospitalizations states cardiac arrest during past hospitalization 07/18 PMH - Neuro Hx Neurological Disorders No Hx Brain Tumor No Hx Cerebrovascular Accident No Hx Dementia No Hx Dizziness No Hx Headaches No Hx Neuropathy Yes Hx Parkinson's Disease No Hx Seizures No: denies Hx Speech Problem No Hx Syncope No Hx Transient Ischemic Attacks No (TIA) PMH - GI Hx Gastrointestinal Disorders No Hx Abdominal Pain No Hx Celiac Disease No Hx Crohn's Disease No Hx Diverticulitis No Hx Gastrointestinal Bleed No Hx Gastroesophageal Reflux No: denies reflux Hx Hepatitis/Jaundice No Hx Hiatal Hernia No Hx Irritable Bowel No Hx Liver Disease No Hx Nausea/Vomiting No Hx Obstructive Bowel No Hx Pancreatitis No Hx Rectal Bleeding No Hx Ulcer No Hx Weight Loss/Weight Gain No PMH - Hx Genitourinary Disorders Yes Hx Bladder Problem No Hx Kidney Stones No Hx Prostate Problems No: pt states no but on flomax Hx Renal Disease Yes Hx Urinary Tract Infection No PMH - Endocrine Hx Endocrine Disorders Yes Hx Diabetes Yes Hx Thyroid Disease No Hx of NIDDM Yes Hx of IDDM No Comment: checks blood sugars bid (100-140)/ulcers on feet due to poor circulation PMH - Musculoskeletal Hx Musculoskeletal Disorders Yes Hx Arthritis Yes Hx Back Injury Yes Hx Fibromyalgia No Hx Gout No Hx Musculoskeletal Disease Yes Hx Osteoporosis No Comment: chronic pain; hx septic hip in past PMH - Psych Hx Psychiatric Problems No Hx Anxiety No Hx Behavior Problems No Hx Depression No Hx Emotional Abuse No Hx Sexual Abuse No Hx Suicide Attempt No PMH - Hematology/Oncology Hx Hematology/Oncology Yes Disorders Hx Anemia Yes Hx Blood Disorders No Hx Bruising Yes Hx Cancer Yes: skin Hx Clotting Problems Yes Hx Sickle Cell Disease No Hx Unexplained Bleeding No Hx Blood Transfusion Reaction No Comment: pt to bridge with Lovenox 4 days preop Premorbid Status: Detail (Pt lives alone in a 1 story house with 3 steps and 1 handrailing at the entrance. He has a walk in shower and usually stands to shower. He has an elevated toilet with grab bars. He was Ind with all ADLs and most IADLs with the exception of socks which his daughter assisted with daily. He has a 2 wheeled walker, 2 reachers, sock aid and velcro shoes.) Social History: Detail (Very supportive daughter.) Precautions: [place], Fall, Other (Total hip precautions, patient is to wear hip orthosis when ambulation and knee immobilizer when sitting and walking to bathroom.) - Time With Patient Total Time Spent With Patient (Min): 30 Treatment Procedures: Detail (Initial Evaluation) Subjective Information - Subjective Information Per Patient (The patient continues to complain of R groin pain.) Objective Data - Pain Pain Present: Yes Pain Intensity: 5 Pain Scale Used: Numeric (1 - 10) - Mental Status Patient Orientation: Oriented x3 - ROM Not within normal limits (The patient's R hip ROM is within total hip precautions. L LE AROM is WNL.) - Strength/Tone Not within normal limits (L LE strength: hip flexors 4+/5 , abductors and extensors 4 /5, adductors 4+/5, knee flexors and extensors and ankle musculature 4+/5. R LE hip flexors within precautions 3/5, hip abductors 3/5, rotators not tested, extensors 3+/5, knee musculature 4/5 and ankle musculature 4+/5) - Bed Mobility Needs Assist (not assessed.) - Transfers Independent (The patient is independent with sit to and from stand transfer and toilet transfer.) - Balance Balance Sitting: Good Balance Standing: Good - Gait Detail (The patient ambulated 200 feet x 1 and 100 feet x 1 with wheeled walker , WBAT on the R LE and with [place] hip orthosis. No shortness of breath was noted.) Therapy Assessment - Therapy Assessment Detail (The patient exhibits decreased LE strength and is currently non- ambulatory on stairs and uneven surfaces. The patient will require ongoing PT to increase LE to prevent reoccurance of hip dislocations and instruction in transfer training to all surfaces including car transfers.) Patient Education - Patient Education Teaching Topic: Equipment Use (patient requires assistance with applying immobilizer and hip orthosis.) Problem List - Problem List Physical Therapy Problem List: Detail (1) Decreased R hip strength 2) Recurrent R hip dislocations 3) Non ambulatory on stairs and uneven surfaces) Occupational Therapy Problem List: Detail (1. Decreased Ind with self cares. 2. Decreased Ind with don/doffing hip brace.) Goals - Goals Physical Therapy Goals: 1) Independent with all transfers including car transfers using proper technique and following THR precautions. 2) Increase R LE strnegth 1/3 muscle grade to increase hip stability and to prevent recurrent hip dislocations. 3) Independent ambulation with appropriate assistive device community distances on level and unlevel surfaces including stairs. 4)Assess bed mobility Occupational Therapy Goals: 1. Pt will be safe and Ind with total body dressing and showering using adaptive equipment as needed while maintaining hip precautions. 2. Pt will be Ind with don/doffing right hip brace. Prognosis - Prognosis Good Plan - Plan Physical Therapy Plan: PT 1-2 times a day for gait training, transfer training, LE strengthening. Occupational Therapy Plan: OT 2-4 days per week to address self cares and brace management to allow safe and Ind return home.
[2018-02-25] MEDS: TAMSULOSIN HCL 0.4 MG CAP.ER.24H PO SCH (22:56)
[2018-02-25] MEDS: FAMOTIDINE 20MG TABLET PO SCH (22:56)
[2018-02-25] MEDS: SENNOSIDES/DOCUSATE SODIUM UD CAPSULE PO SCH (22:56)
[2018-02-25] MEDS: POLYETHYLENE GLY 17 GM PACKET PO SCH (22:57)
[2018-02-25] MEDS: LEVEMIR FLEXTOUCH 100 UNIT/ML INSULIN PEN SQ SCH (22:57)
[2018-02-25] MEDS: ATORVASTATIN 20 MG TABLET PO SCH (22:57)
[2018-02-26 06:35] LABS: INR 3.3; PROTHROMBIN TIME (PATIENT) 36.4 SECONDS (9.5-12.1)
[2018-02-26] MEDS: FERROUS SULFATE 325 MG TAB PO SCH ×3 (08:56→17:20)
[2018-02-26] MEDS: POTASSIUM CHLORIDE 20 MEQ TABLET PO SCH ×2 (09:28→22:31)
[2018-02-26] MEDS: CEPHALEXIN 500 MG CAPSULE PO SCH ×3 (09:28→22:30)
[2018-02-26] MEDS: MULTIVITAMINS/MINERALS TABLET PO SCH (09:28)
[2018-02-26] MEDS: AMIODARONE HCL 200 MG TABLET PO SCH (09:29)
[2018-02-26] MEDS: MAGNESIUM OXIDE 400 MG TABLET PO SCH ×2 (09:29→22:31)
[2018-02-26] MEDS: METOPROLOL SUCC 25 MG TAB.ER PO SCH (09:30)
[2018-02-26] MEDS: TORSEMIDE 20 MG TABLET PO SCH ×2 (09:31→17:20)
[2018-02-26] MEDS: ASCORBIC ACID 500 MG TAB PO SCH ×2 (09:32→22:31)
[2018-02-26] MEDS: CHOLECALCIFEROL 1,000 UNIT TABLET PO SCH (09:33)
[2018-02-26] MEDS: OXYCODONE/APAP 10MG-325MG TABLET PO PRN (09:35)
[2018-02-26] MEDS: BREO (FLUTICASONE/VILANTEROL) 200MCG/25MCG INHALER INH SCH (09:39)
--- NOTE | 2018-02-26 15:54 | Physical Therapy Tx Note ---
Physical Therapy Tx Note - Treatment Note Tolerated: Good Total Time Spent With Patient: 45 Physical Therapy Tx Note: Detail (Pt sitting up in chair upon arrival. Cooperative for therapy. Discussed hip abduction brace and reviewed printed instructions w/pt. Applied brace in standing, with assist for two santosh on upper thigh and velcro strap at abdomen. Pt ambulated w/front wheeled walker w/ SBA from bedside chair past [facility] waiting area (225 feet) and back to room ( 225 feet). Notes pain in L groin area. Performed 10 reps B of hip flexion reclined, LAQ, and 15 minutes on Restorator. Pt preferred to leave hip abd brace on until afternoon session. Left up in chair w/call light and bedside table in reach.) Physical Therapy Problem List: Detail (1) Decreased R hip strength 2) Recurrent R hip dislocations 3) Non ambulatory on stairs and uneven surfaces) Physical Therapy Goals: 1) Independent with all transfers including car transfers using proper technique and following THR precautions. 2) Increase R LE strnegth 1/3 muscle grade to increase hip stability and to prevent recurrent hip dislocations. 3) Independent ambulation with appropriate assistive device community distances on level and unlevel surfaces including stairs. 4)Assess bed mobility Prognosis: Good Physical Therapy Plan: PT 1-2 times a day for gait training, transfer training, LE strengthening.
--- NOTE | 2018-02-26 16:01 | Physical Therapy Tx Note ---
Physical Therapy Tx Note - Treatment Note Tolerated: Good Total Time Spent With Patient: 40 Physical Therapy Tx Note: Detail (Pt up in chair upon arrival; noted fatigue but cooperative for therapy. States that he was able to go to bathroom to urinate w/hip abd brace on w/o difficulty. Sit/stand to front wheeled walker independently. Ambulated 115 feet w/front wheeled walker w/SBA (near [facility]) and returned to room. Pt worked on restorator for 6 minutes before fatigue. Performed 10 reps of glut sets. Pt removed hip abd brace in sitting; stood for application of long leg brace. He held long leg brace in place for application , in standing unsupported. Sat in recliner independently; left up in chair w/ call light and bedside table in reach.) Physical Therapy Problem List: Detail (1) Decreased R hip strength 2) Recurrent R hip dislocations 3) Non ambulatory on stairs and uneven surfaces) Physical Therapy Goals: 1) Independent with all transfers including car transfers using proper technique and following THR precautions. 2) Increase R LE strnegth 1/3 muscle grade to increase hip stability and to prevent recurrent hip dislocations. 3) Independent ambulation with appropriate assistive device community distances on level and unlevel surfaces including stairs. 4)Assess bed mobility Prognosis: Good Physical Therapy Plan: PT 1-2 times a day for gait training, transfer training, LE strengthening.
[2018-02-26] MEDS: WARFARIN 1 MG TABLET PO SCH (17:19)
[2018-02-26] MEDS: ATORVASTATIN 20 MG TABLET PO SCH (22:30)
[2018-02-26] MEDS: TAMSULOSIN HCL 0.4 MG CAP.ER.24H PO SCH (22:30)
[2018-02-26] MEDS: POLYETHYLENE GLY 17 GM PACKET PO SCH (22:31)
[2018-02-26] MEDS: SENNOSIDES/DOCUSATE SODIUM UD CAPSULE PO SCH (22:31)
[2018-02-26] MEDS: FAMOTIDINE 20MG TABLET PO SCH (22:31)
[2018-02-26] MEDS: LEVEMIR FLEXTOUCH 100 UNIT/ML INSULIN PEN SQ SCH (22:32)
[2018-02-27 06:43] LABS: BASO % 0.5 % (0-6); EOS % 4.1 % (0-6); GRAN % 62.5 % (47-80); HEMATOCRIT 37.8 % (42.0-52.0); HEMOGLOBIN 11.4 gm/dl (14.0-18.0); LYMPH % 22.1 % (16-45); MEAN CELL VOLUME 90.9 fl (81-97); MEAN CORPUSCULAR HEMOGLOBIN 27.4 pg (27-33); MEAN CORPUSCULAR HGB CONC 30.2 g/dl (32-36); MONO % 10.8 % (0-9); PLATELET COUNT 158 K/uL (130-400); RED BLOOD COUNT 4.16 M/uL (4.40-5.70); RED CELL DISTRIBUTION WIDTH 15.8 % (11.5-14.5); WHITE BLOOD COUNT W/O DIFF 4.4 K/uL (4.2-12.2)
[2018-02-27 06:50] LABS: INR 2.7; PROTHROMBIN TIME (PATIENT) 29.2 SECONDS (9.5-12.1)
[2018-02-27 07:35] LABS: BLOOD UREA NITROGEN 40 mg/dL (8-23); CREATININE 1.2 mg/dL (0.7-1.2); EST GLOMERULAR FILTRATION RATE > 60 mL/min; GLUCOSE,RANDOM 127 mg/dL (74-109)
[2018-02-27] MEDS: FERROUS SULFATE 325 MG TAB PO SCH ×3 (09:15→17:46)
[2018-02-27] MEDS: OXYCODONE/APAP 10MG-325MG TABLET PO PRN (10:48)
[2018-02-27] MEDS: CHOLECALCIFEROL 1,000 UNIT TABLET PO SCH (10:48)
[2018-02-27] MEDS: POTASSIUM CHLORIDE 20 MEQ TABLET PO SCH ×2 (10:48→22:01)
[2018-02-27] MEDS: ASCORBIC ACID 500 MG TAB PO SCH ×2 (10:48→22:01)
[2018-02-27] MEDS: MAGNESIUM OXIDE 400 MG TABLET PO SCH ×2 (10:49→22:01)
[2018-02-27] MEDS: METOPROLOL SUCC 25 MG TAB.ER PO SCH (10:49)
[2018-02-27] MEDS: CEPHALEXIN 500 MG CAPSULE PO SCH ×3 (10:49→22:01)
[2018-02-27] MEDS: AMIODARONE HCL 200 MG TABLET PO SCH (10:49)
[2018-02-27] MEDS: MULTIVITAMINS/MINERALS TABLET PO SCH (10:49)
[2018-02-27] MEDS: TORSEMIDE 20 MG TABLET PO SCH ×2 (10:53→17:46)
[2018-02-27] MEDS: BREO (FLUTICASONE/VILANTEROL) 200MCG/25MCG INHALER INH SCH (11:47)
--- NOTE | 2018-02-27 12:51 | Physical Therapy Tx Note ---
Physical Therapy Tx Note - Treatment Note Tolerated: Good Total Time Spent With Patient: 40 Physical Therapy Tx Note: Detail (Patient was seated in chair upon SPINNING DOFFER arrival. Patient states no new complaints. Patient transferred sit to and from stand SBA x1. Patient ambulated 72 feet with wheeled walker SBA x1. Patient ascended and descended 3 steps CGA x1 with using right stairwell railing when descending, left when ascending. Patient ambulated 230 feet with wheeled walker SBA x1. Patient performed the following exercises x15-25 reps each: standing heel raises, standing toe raises, reclined marching, LAQ, seated isometric hip abduction, and isometric hip adduction. Patient tolerated treatment well. Patient reports no new complaints of pain after treatment. Patient was left seated in chair with brace and call light within reach.) Physical Therapy Problem List: Detail (1) Decreased R hip strength 2) Recurrent R hip dislocations 3) Non ambulatory on stairs and uneven surfaces) Physical Therapy Goals: 1) Independent with all transfers including car transfers using proper technique and following THR precautions. 2) Increase R LE strnegth 1/3 muscle grade to increase hip stability and to prevent recurrent hip dislocations. 3) Independent ambulation with appropriate assistive device community distances on level and unlevel surfaces including stairs. 4)Assess bed mobility Prognosis: Good Physical Therapy Plan: PT 1-2 times a day for gait training, transfer training, LE strengthening.
--- NOTE | 2018-02-27 14:13 | Physical Therapy Tx Note ---
Physical Therapy Tx Note - Treatment Note Tolerated: Good Total Time Spent With Patient: 20 Physical Therapy Tx Note: Detail (Patient was fatigued following am therapy. The patient ambulated 134 feet x 1 with wheeled walker with supervision for safety. The patient pedaled restorator x 10 minutes. PT treatment was shortened secondary to LE fatigue. The patient was left in chair with call light in place.) Physical Therapy Problem List: Detail (1) Decreased R hip strength 2) Recurrent R hip dislocations 3) Non ambulatory on stairs and uneven surfaces) Physical Therapy Goals: 1) Independent with all transfers including car transfers using proper technique and following THR precautions. 2) Increase R LE strnegth 1/3 muscle grade to increase hip stability and to prevent recurrent hip dislocations. 3) Independent ambulation with appropriate assistive device community distances on level and unlevel surfaces including stairs. 4)Assess bed mobility Physical Therapy Plan: PT 1-2 times a day for gait training, transfer training, LE strengthening.
[2018-02-27] MEDS: LEVOTHYROXINE SODIUM 150 MCG TABLET PO SCH (14:53)
[2018-02-27] MEDS: WARFARIN 1 MG TABLET PO SCH (17:46)
[2018-02-27] MEDS: FAMOTIDINE 20MG TABLET PO SCH (22:01)
[2018-02-27] MEDS: TAMSULOSIN HCL 0.4 MG CAP.ER.24H PO SCH (22:01)
[2018-02-27] MEDS: ATORVASTATIN 20 MG TABLET PO SCH (22:01)
[2018-02-27] MEDS: SENNOSIDES/DOCUSATE SODIUM UD CAPSULE PO SCH (22:01)
[2018-02-27] MEDS: POLYETHYLENE GLY 17 GM PACKET PO SCH (22:02)
[2018-02-27] MEDS: LEVEMIR FLEXTOUCH 100 UNIT/ML INSULIN PEN SQ SCH (22:02)
[2018-02-28 06:24] LABS: INR 2.5; PROTHROMBIN TIME (PATIENT) 27.3 SECONDS (9.5-12.1)
[2018-02-28] MEDS: LEVOTHYROXINE SODIUM 150 MCG TABLET PO SCH (06:46)
[2018-02-28] MEDS: FERROUS SULFATE 325 MG TAB PO SCH ×3 (08:10→17:38)
[2018-02-28] MEDS: METOLAZONE 2.5 MG TABLET PO SCH (09:28)
[2018-02-28] MEDS: BREO (FLUTICASONE/VILANTEROL) 200MCG/25MCG INHALER INH SCH (10:00)
[2018-02-28] MEDS: CEPHALEXIN 500 MG CAPSULE PO SCH ×3 (10:10→22:31)
[2018-02-28] MEDS: MULTIVITAMINS/MINERALS TABLET PO SCH (10:10)
[2018-02-28] MEDS: MAGNESIUM OXIDE 400 MG TABLET PO SCH ×2 (10:11→22:30)
[2018-02-28] MEDS: POTASSIUM CHLORIDE 20 MEQ TABLET PO SCH ×2 (10:11→22:30)
[2018-02-28] MEDS: AMIODARONE HCL 200 MG TABLET PO SCH (10:12)
[2018-02-28] MEDS: METOPROLOL SUCC 25 MG TAB.ER PO SCH (10:12)
[2018-02-28] MEDS: TORSEMIDE 20 MG TABLET PO SCH ×2 (10:13→16:03)
[2018-02-28] MEDS: ASCORBIC ACID 500 MG TAB PO SCH ×2 (10:15→22:30)
[2018-02-28] MEDS: CHOLECALCIFEROL 1,000 UNIT TABLET PO SCH (10:15)
[2018-02-28] MEDS: OXYCODONE/APAP 10MG-325MG TABLET PO PRN (13:41)
[2018-02-28] MEDS: WARFARIN 1 MG TABLET PO SCH (16:03)
[2018-02-28] MEDS: ATORVASTATIN 20 MG TABLET PO SCH (22:30)
[2018-02-28] MEDS: SENNOSIDES/DOCUSATE SODIUM UD CAPSULE PO SCH (22:30)
[2018-02-28] MEDS: FAMOTIDINE 20MG TABLET PO SCH (22:30)
[2018-02-28] MEDS: TAMSULOSIN HCL 0.4 MG CAP.ER.24H PO SCH (22:30)
[2018-02-28] MEDS: POLYETHYLENE GLY 17 GM PACKET PO SCH (22:31)
[2018-02-28] MEDS: LEVEMIR FLEXTOUCH 100 UNIT/ML INSULIN PEN SQ SCH (22:34)
[2018-03-01 05:58] LABS: INR 2.2; PROTHROMBIN TIME (PATIENT) 23.4 SECONDS (9.5-12.1)
[2018-03-01] MEDS: LEVOTHYROXINE SODIUM 150 MCG TABLET PO SCH (06:08)
[2018-03-01] MEDS: FERROUS SULFATE 325 MG TAB PO SCH ×3 (08:50→17:29)
[2018-03-01] MEDS: CEPHALEXIN 500 MG CAPSULE PO SCH ×3 (09:45→23:18)
[2018-03-01] MEDS: POTASSIUM CHLORIDE 20 MEQ TABLET PO SCH ×2 (09:45→23:18)
[2018-03-01] MEDS: MULTIVITAMINS/MINERALS TABLET PO SCH (09:45)
[2018-03-01] MEDS: AMIODARONE HCL 200 MG TABLET PO SCH (09:46)
[2018-03-01] MEDS: METOPROLOL SUCC 25 MG TAB.ER PO SCH (09:46)
[2018-03-01] MEDS: MAGNESIUM OXIDE 400 MG TABLET PO SCH ×2 (09:46→23:19)
[2018-03-01] MEDS: TORSEMIDE 20 MG TABLET PO SCH ×2 (09:47→16:15)
[2018-03-01] MEDS: ASCORBIC ACID 500 MG TAB PO SCH ×2 (09:48→23:20)
[2018-03-01] MEDS: CHOLECALCIFEROL 1,000 UNIT TABLET PO SCH (09:48)
[2018-03-01] MEDS: BREO (FLUTICASONE/VILANTEROL) 200MCG/25MCG INHALER INH SCH (10:10)
[2018-03-01] MEDS: WARFARIN 1 MG TABLET PO SCH (16:14)
[2018-03-01] MEDS: TAMSULOSIN HCL 0.4 MG CAP.ER.24H PO SCH (23:16)
[2018-03-01] MEDS: ATORVASTATIN 20 MG TABLET PO SCH (23:18)
[2018-03-01] MEDS: SENNOSIDES/DOCUSATE SODIUM UD CAPSULE PO SCH (23:19)
[2018-03-01] MEDS: FAMOTIDINE 20MG TABLET PO SCH (23:19)
[2018-03-01] MEDS: POLYETHYLENE GLY 17 GM PACKET PO SCH (23:19)
[2018-03-01] MEDS: LEVEMIR FLEXTOUCH 100 UNIT/ML INSULIN PEN SQ SCH (23:20)
[2018-03-02 06:52] LABS: PROTHROMBIN TIME (PATIENT) 21.9 SECONDS (9.5-12.1)
[2018-03-02] MEDS: LEVOTHYROXINE SODIUM 150 MCG TABLET PO SCH (07:33)
[2018-03-02] MEDS: FERROUS SULFATE 325 MG TAB PO SCH ×3 (08:45→18:17)
[2018-03-02] MEDS: CHOLECALCIFEROL 1,000 UNIT TABLET PO SCH (10:29)
[2018-03-02] MEDS: OXYCODONE/APAP 10MG-325MG TABLET PO PRN (10:29)
[2018-03-02] MEDS: AMIODARONE HCL 200 MG TABLET PO SCH (10:30)
[2018-03-02] MEDS: ASCORBIC ACID 500 MG TAB PO SCH ×2 (10:30→22:41)
[2018-03-02] MEDS: CEPHALEXIN 500 MG CAPSULE PO SCH ×3 (10:30→22:40)
[2018-03-02] MEDS: MULTIVITAMINS/MINERALS TABLET PO SCH (10:30)
[2018-03-02] MEDS: MAGNESIUM OXIDE 400 MG TABLET PO SCH ×2 (10:30→22:43)
[2018-03-02] MEDS: POTASSIUM CHLORIDE 20 MEQ TABLET PO SCH ×2 (10:31→22:40)
[2018-03-02] MEDS: TORSEMIDE 20 MG TABLET PO SCH ×2 (10:32→18:18)
[2018-03-02] MEDS: METOPROLOL SUCC 25 MG TAB.ER PO SCH (10:40)
[2018-03-02] MEDS ORDERED: OXYCODONE/APAP 10MG-325MG TABLET PO PRN (10:41)
[2018-03-02 11:25] LABS: CREATININE 1.4 mg/dL (0.7-1.2)
[2018-03-02] MEDS: BREO (FLUTICASONE/VILANTEROL) 200MCG/25MCG INHALER INH SCH (11:59)
[2018-03-02] MEDS ORDERED: ONDANSETRON 4 MG ODT TABLET SL PRN (12:15)
--- NOTE | 2018-03-02 13:01 | Physical Therapy Tx Note ---
Physical Therapy Tx Note - Treatment Note Tolerated: Good Total Time Spent With Patient: 35 Physical Therapy Tx Note: Detail (The patient ambulated with 2 canes with supervision for safety a distance of 200 feet x 1, with 2 wheeled walker 200 feet x 1 and 120 feet x 1. The patient had complaints of pain and a pulling sensation R groin and quad region. The patient completed LE strengthening exercises including seated LAQ and manual resisted hamstring curls and adductor squeezes x 15 to 20 reps. The patient complained of fatigue following PT session. The patient was left in chair with call light in place.) Physical Therapy Problem List: Detail (1) Decreased R hip strength 2) Recurrent R hip dislocations 3) Non ambulatory on stairs and uneven surfaces) Physical Therapy Goals: 1) Independent with all transfers including car transfers using proper technique and following THR precautions. 2) Increase R LE strnegth 1/3 muscle grade to increase hip stability and to prevent recurrent hip dislocations. 3) Independent ambulation with appropriate assistive device community distances on level and unlevel surfaces including stairs. 4)Assess bed mobility Physical Therapy Plan: PT 1-2 times a day for gait training, transfer training, LE strengthening.
--- NOTE | 2018-03-02 14:29 | Physical Therapy Tx Note ---
Physical Therapy Tx Note - Treatment Note Tolerated: Good Total Time Spent With Patient: 35 Physical Therapy Tx Note: Detail (Patient was standing donning his hip brace upon AWARD CLERK arrival. Patient completed donning brace independently. Patient states right hip and left LE sore. Patient ambulated 494 feet with wheeled walker SBA x1. Patient performed the following exercises x15-25 reps each: seated heel raises, seated toe raises, LAQ, seated hamstring sets, seated isometric hip abduction, and isometric hip adduction. Patient tolerated treatment well. Patient reports LEs tired and sore after treatment. Patient was left seated in chair with call light within reach.) Physical Therapy Problem List: Detail (1) Decreased R hip strength 2) Recurrent R hip dislocations 3) Non ambulatory on stairs and uneven surfaces) Physical Therapy Goals: 1) Independent with all transfers including car transfers using proper technique and following THR precautions. 2) Increase R LE strnegth 1/3 muscle grade to increase hip stability and to prevent recurrent hip dislocations. 3) Independent ambulation with appropriate assistive device community distances on level and unlevel surfaces including stairs. 4)Assess bed mobility Prognosis: Good Physical Therapy Plan: PT 1-2 times a day for gait training, transfer training, LE strengthening.
[2018-03-02] MEDS: WARFARIN 1 MG TABLET PO SCH (18:17)
[2018-03-02] MEDS: POLYETHYLENE GLY 17 GM PACKET PO SCH (22:36)
[2018-03-02] MEDS: TAMSULOSIN HCL 0.4 MG CAP.ER.24H PO SCH (22:40)
[2018-03-02] MEDS: ATORVASTATIN 20 MG TABLET PO SCH (22:41)
[2018-03-02] MEDS: FAMOTIDINE 20MG TABLET PO SCH (22:41)
[2018-03-02] MEDS: SENNOSIDES/DOCUSATE SODIUM UD CAPSULE PO SCH (22:41)
[2018-03-02] MEDS: LEVEMIR FLEXTOUCH 100 UNIT/ML INSULIN PEN SQ SCH (22:43)
[2018-03-03] MEDS: LEVOTHYROXINE SODIUM 150 MCG TABLET PO SCH (06:35)
[2018-03-03] MEDS: FERROUS SULFATE 325 MG TAB PO SCH ×3 (08:05→17:14)
[2018-03-03] MEDS: AMIODARONE HCL 200 MG TABLET PO SCH (09:27)
[2018-03-03] MEDS: MAGNESIUM OXIDE 400 MG TABLET PO SCH ×2 (09:27→21:49)
[2018-03-03] MEDS: CEPHALEXIN 500 MG CAPSULE PO SCH ×3 (09:27→21:49)
[2018-03-03] MEDS: ASCORBIC ACID 500 MG TAB PO SCH ×2 (09:27→21:49)
[2018-03-03] MEDS: POTASSIUM CHLORIDE 20 MEQ TABLET PO SCH ×2 (09:28→21:49)
[2018-03-03] MEDS: CHOLECALCIFEROL 1,000 UNIT TABLET PO SCH (09:28)
[2018-03-03] MEDS: MULTIVITAMINS/MINERALS TABLET PO SCH (09:28)
[2018-03-03] MEDS: METOPROLOL SUCC 25 MG TAB.ER PO SCH (09:29)
[2018-03-03] MEDS: METOLAZONE 2.5 MG TABLET PO SCH (09:31)
[2018-03-03] MEDS: TORSEMIDE 20 MG TABLET PO SCH ×2 (09:34→17:16)
[2018-03-03] MEDS: BREO (FLUTICASONE/VILANTEROL) 200MCG/25MCG INHALER INH SCH ×2 (10:22→11:40)
--- NOTE | 2018-03-03 10:55 | Physical Therapy Tx Note ---
Physical Therapy Tx Note - Treatment Note Tolerated: Good Total Time Spent With Patient: 30 Physical Therapy Tx Note: Detail (The patient was standing donning hip brace when PT arrived. The patient was able to don brace independently except for bottom thigh strap. The patient ambulated with 2 canes 450 feet x 1 , 134 feet x 2 with supervision for safety only. The patient continues to complain of right groin pain with ambulation. The patient completed LE strengthening exercises bilaterally including: manual resistive hamstring curls, hip abduction x 15 reps, gluteal sets x 10 reps, hip adductor squeezes, LAQ x 15 reps. The patient complained of LE fatigue following exercises L side greater then R.) Physical Therapy Problem List: Detail (1) Decreased R hip strength 2) Recurrent R hip dislocations 3) Non ambulatory on stairs and uneven surfaces) Physical Therapy Goals: 1) Independent with all transfers including car transfers using proper technique and following THR precautions. 2) Increase R LE strnegth 1/3 muscle grade to increase hip stability and to prevent recurrent hip dislocations. 3) Independent ambulation with appropriate assistive device community distances on level and unlevel surfaces including stairs. 4)Assess bed mobility Physical Therapy Plan: PT 1-2 times a day for gait training, transfer training, LE strengthening.
--- NOTE | 2018-03-03 14:05 | Physical Therapy Tx Note ---
Physical Therapy Tx Note - Treatment Note Tolerated: Good Total Time Spent With Patient: 30 Physical Therapy Tx Note: Detail (Pt was alert at time of PT. PT states right hip is sore, especially the groin area. Pt completed seated ex's of marching, LAQ, heel raises, toe raises, all x 10 bilaterally. Pt ambulated with wheeled walker x 350 ft. without a rest period. Pt states very fatigued after activity. Pt states hip still sore in groin area. Applied cold pack x 15 min to right hip/ groin area with Pt. seated in chair. Pt was given bedside table, nursing call light at end of PT.) Physical Therapy Problem List: Detail (1) Decreased R hip strength 2) Recurrent R hip dislocations 3) Non ambulatory on stairs and uneven surfaces) Physical Therapy Goals: 1) Independent with all transfers including car transfers using proper technique and following THR precautions. 2) Increase R LE strnegth 1/3 muscle grade to increase hip stability and to prevent recurrent hip dislocations. 3) Independent ambulation with appropriate assistive device community distances on level and unlevel surfaces including stairs. 4)Assess bed mobility Prognosis: Good Physical Therapy Plan: PT 1-2 times a day for gait training, transfer training, LE strengthening.
[2018-03-03] MEDS: WARFARIN 1 MG TABLET PO SCH (17:14)
[2018-03-03] MEDS: OXYCODONE/APAP 10MG-325MG TABLET PO PRN (19:12)
[2018-03-03] MEDS: TAMSULOSIN HCL 0.4 MG CAP.ER.24H PO SCH (21:49)
[2018-03-03] MEDS: ATORVASTATIN 20 MG TABLET PO SCH (21:49)
[2018-03-03] MEDS: POLYETHYLENE GLY 17 GM PACKET PO SCH (21:49)
[2018-03-03] MEDS: SENNOSIDES/DOCUSATE SODIUM UD CAPSULE PO SCH (21:49)
[2018-03-03] MEDS: FAMOTIDINE 20MG TABLET PO SCH (21:49)
[2018-03-03] MEDS: LEVEMIR FLEXTOUCH 100 UNIT/ML INSULIN PEN SQ SCH (21:50)
--- NOTE | 2018-03-03 22:25 | Physician Progress Note ---
Subjective - Date Date of Progress Note: 03/03/18 - Admitting Diagnosis Diagnosis: post dislocation rt hip. deconditioning - Subjective Nursing Care Plan Problem List Activity Intolerance (Swing Bed) Start: 02/24/18 20: 00 Freq: Status: Active Protocol: Created 02/24/18 20:00 [facility] (Rec: 02/24/18 20:00 [facility] [id number]) Altered Thought Process (Fall Risk) Start: 02/24/18 19: 54 Freq: Status: Complete Protocol: Created 02/24/18 19:54 [facility] (Rec: 02/24/18 19:54 [facility] [id number]) Edit Status 02/27/18 13:09 SAF (Rec: 02/27/18 13:09 SAF [id number]) Active=>Complete Impaired Mobility (Fall Risk) Start: 02/24/18 19: 54 Freq: Status: Active Protocol: Created 02/24/18 19:54 [facility] (Rec: 02/24/18 19:54 [facility] [id number]) Knowledge Deficit (Swing Bed) Start: 02/24/18 20: 00 Freq: Status: Active Protocol: Created 02/24/18 20:00 [facility] (Rec: 02/24/18 20:00 [facility] [id number]) Pain (Swing Bed) Start: 02/24/18 20: 00 Freq: Status: Active Protocol: Created 02/24/18 20:00 [facility] (Rec: 02/24/18 20:00 [facility] [id number]) Risk for Injury (Fall Risk) Start: 02/24/18 19: 54 Freq: Status: Complete Protocol: Created 02/24/18 19:54 [facility] (Rec: 02/24/18 19:54 [facility] [id number]) Edit Status 02/27/18 13:09 SAF (Rec: 02/27/18 13:09 SAF [id number]) Active=>Complete Subjective: The patient is doing well this afternoon, sitting at bedside. He says that he' s coming along and would like to go home by the weekend if possible. He complains of right groin pain which is exacerbated by movement. - Subjective Detail Musculoskeletal: Reports: Other (right groin/hip pain) General - Cognitive Patterns Speech: Normal Thought Process: Intact Thought Content: Normal - Communication Select best description of speech pattern: Clear Speech Understanding verbal content: Understands - Mood and Behavior Patterns Appearance: Well Groomed Mood: Normal Attitude: Cooperative Motor Activity: Calm Affect: Appropriate Hallucinations: Denies - Physical Functioning Activity Level: Up as tolerated Turning: Self ad trista ROM Ability: Moves all extremities Assistive Devices: Straight Cane, 2 Wheel Walker Ambulation Ability: Independent Bed Mobility: Independent Transfer Ability: Independent Bathing Ability: Independent Personal Hygiene: Independent Dressing Ability: Independent Eating (Feeding) Ability: Independent Toileting Ability: Independent Administer Own Medication: Independent - Continence Bowel Pattern: Normal for Patient Bladder Pattern: Normal Meds/Allergies - Allergies Allergies Allergy/AdvReac Type Severity Reaction Status Date / Time onion Allergy Intermediate NAUSEA Verified 01/30/16 14:13 - Active Medications Current Medications Albuterol Sulfate (Ventolin Hfa) 2 puff INH Q4H PRN PRN Reason: shortness of breath Amiodarone HCl (Pacerone) 200 mg PO DAILY [facility] Last Admin: 03/03/18 09:27 Dose: 200 mg Ascorbic Acid (Vitamin C) 1,000 mg PO BID [facility] Last Admin: 03/03/18 21:49 Dose: 1,000 mg Atorvastatin Calcium (Lipitor) 20 mg PO QHS [facility] Last Admin: 03/03/18 21:49 Dose: 20 mg Cephalexin HCl (Keflex) 500 mg PO TID [facility] Stop: 03/06/18 22:01 Last Admin: 03/03/18 21:49 Dose: 500 mg Famotidine (Pepcid) 20 mg PO QHS [facility] Last Admin: 03/03/18 21:49 Dose: 20 mg Ferrous Sulfate (Iron) 325 mg PO WMEALS [facility] Last Admin: 03/03/18 17:14 Dose: 325 mg Insulin Detemir (Levemir Flextouch) 6 unit SQ QHS [facility] Last Admin: 03/03/18 21:50 Dose: 6 unit Levothyroxine Sodium (Synthroid) 150 mcg PO DAILYTHY [facility] Last Admin: 03/03/18 06:35 Dose: 150 mcg Magnesium Oxide (Mag Ox) 400 mg PO BID [facility] Last Admin: 03/03/18 21:49 Dose: 400 mg Metolazone (Zaroxolyn) 2.5 mg PO TuSa [facility] Last Admin: 03/03/18 09:31 Dose: 2.5 mg Metoprolol Succinate (Toprol Xl) 12.5 mg PO DAILY [facility] Last Admin: 03/03/18 09:29 Dose: 12.5 mg Multivitamins/Minerals (Centrum) 1 tab PO DAILY [facility] Last Admin: 03/03/18 09:28 Dose: 1 tab Ondansetron HCl (Zofran Odt) 4 mg SL Q6H PRN PRN Reason: NAUSEA Last Admin: 03/02/18 12:20 Dose: 4 mg Oxycodone/Acetaminophen (Percocet 10-325 Mg Tablet) 1 each PO Q6H PRN PRN Reason: Pain Last Admin: 03/03/18 19:12 Dose: 1 each Oxycodone/Acetaminophen (Percocet 10-325 Mg Tablet) 2 each PO Q6H PRN PRN Reason: Pain - General Polyethylene Glycol (Miralax) 17 gm PO QHS [facility] Last Admin: 03/03/18 21:49 Dose: 17 gm Potassium Chloride (Klor-Con) 40 meq PO BID [facility] Last Admin: 03/03/18 21:49 Dose: 40 meq Senna/Docusate Sodium (Senna Plus) 2 each PO QHS [facility] Last Admin: 03/03/18 21:49 Dose: 2 each Tamsulosin HCl (Flomax) 0.4 mg PO QHS [facility] Last Admin: 03/03/18 21:49 Dose: 0.4 mg Torsemide (Torsemide) 40 mg PO DAILY [facility] Last Admin: 03/03/18 09:34 Dose: 40 mg Torsemide (Torsemide) 20 mg PO [id number] [facility] Last Admin: 03/03/18 17:16 Dose: 20 mg Vitamin D (Vitamin D3) 5,000 unit PO DAILY [facility] Last Admin: 03/03/18 09:28 Dose: 5,000 unit Warfarin Sodium (Coumadin) 2 mg PO [id number] [facility] Last Admin: 03/03/18 17:14 Dose: 2 mg Objective - Vital Signs Vital Signs: Vital Signs - Last 24 Hrs Temp Pulse Pulse Resp BP BP Pulse Ox 03/03/18 20:00 97.8 F 83 16 111/63 98 03/03/18 11:40 85 16 98 03/03/18 07:53 97.2 F L 82 12 116/69 97 - General General Appearance: Alert, Oriented x3, Cooperative, No acute distress - Head Head exam: Normal inspection - Eye Eye exam: Normal appearance, PERRL Pupils: Normal accommodation - ENT ENT exam: Normal exam, Mucous membranes moist, Normal external ear exam, Normal orophraynx, TM's normal bilaterally Ear exam: Normal external inspection. negative: External canal tenderness Nasal Exam: Normal inspection. negative: Discharge, Sinus tenderness Mouth exam: Normal external inspection, Tongue normal Teeth exam: Normal inspection. negative: Dental caries Throat exam: Normal inspection. negative: Tonsillar erythema, Tonsillar exudate - Neck Neck exam: Normal inspection, Full ROM. negative: Tenderness - Respiratory Respiratory exam: Normal lung sounds bilaterally. negative: Respiratory distress - Cardiovascular Cardiovascular Exam: Regular rate, Normal rhythm, Normal heart sounds - GI/Abdominal GI/Abdominal exam: Soft, Normal bowel sounds. negative: Tenderness - Rectal Rectal exam: Deferred - exam: Deferred - Extremities Extremities exam: Normal inspection, Full ROM, Normal capillary refill, Pedal edema (one plus both legs). negative: Tenderness - Back Back exam: Reports: Normal inspection, Full ROM. Denies: Muscle spasm, Rash noted, Tenderness - Neurological Neurological exam: Alert, Normal gait, Oriented X3, Reflexes normal - Psychiatric Psychiatric exam: Normal affect, Normal mood - Skin Skin exam: Dry, Intact, Normal color, Warm H&P Results - Labs Result Diagrams: 02/27/18 06:15 03/02/18 06:00 Labs Last 24 Hours: Laboratory Results - last 24 hr 03/02/18 03/02/18 19:31 22:02 POC Glucose 158 H 149 H Discharge Potential - Discharge Needs Community Services Used Prior to Admission: Transportation Patient Discharge Plan Description: Return Home Community Services Needed at Discharge: Transportation Plan - Swing Bed Certification Initial Certification Due: 02/24/18 14 Day Re-Cert Due: 03/10/18 44 Day Re-Cert Due: 04/09/18 74 Day Re-Cert Due: 05/09/18 - Detailed Diagnosis and Plan (1) History of dislocation of hip Current Visit: Yes Status: Acute Base Code: Z87.39 - PERSONAL HISTORY OF DISEASES OF THE MS SYS AND CONN TISS Priority: High Comment: - s/p dislocation of right joint prosthesis. - cont daily ambulation and PT/OT. Discuss with home PT/Ot options. - pain medication prn - follow up with Dr. Quiros Orthopedic surgery for post-operative assessment. 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 Right total hip revision arthroplasty on 01/02. 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 (5) Physical deconditioning Current Visit: No Status: Acute Base Code: R53.81 - OTHER MALAISE Priority : High Comment: (6) DVT prophylaxis Current Visit: No Status: Acute Base Code: [id number] - Comment: - Coumadin management for DVT prophylaxis and chronic anticoagulation therapy for history of PAF s/p CV - Cont to dose Warfarin with PT/INR check per pharmacy protocol. (7) Full code status Current Visit: No Status: Acute Base Code: Z78.9 - OTHER SPECIFIED HEALTH STATUS Comment: FULLL CODE
[2018-03-04] MEDS: LEVOTHYROXINE SODIUM 150 MCG TABLET PO SCH (07:26)
[2018-03-04] MEDS: FERROUS SULFATE 325 MG TAB PO SCH ×3 (08:10→17:54)
--- NOTE | 2018-03-04 09:23 | Occupational Therapy Tx Note ---
Occupational Therapy Tx Note - Treatment Note Tolerated: Good Total Time Spent With Patient: 5 (no charge) Occupational Therapy Treatment Note: Detail (Pt was able to demonstrate donning of right hip brace Indly and reports he was Ind with all ADLs including showering while on a home visit over the weekend. He feels he has no further OT needs at this time.) Occupational Therapy Problem List: Detail (1. Decreased Ind with self cares. 2. Decreased Ind with don/doffing hip brace.) Occupational Therapy Goals: Goals Met: 1. Pt will be safe and Ind with total body dressing and showering using adaptive equipment as needed while maintaining hip precautions. 2. Pt will be Ind with don/doffing right hip brace. Prognosis: Good Occupational Therapy Plan: OT will monitor pt's needs until discharge as he has met all goals at this time.
--- NOTE | 2018-03-04 10:04 | Physical Therapy Tx Note ---
Physical Therapy Tx Note - Treatment Note Tolerated: Good Total Time Spent With Patient: 30 Physical Therapy Tx Note: Detail (The patient was up in chair when PT arrived. The patient was able to don his hip brace independently. The patient ambulated with 2 canes 134 feet with supervision for safety. The patient ambulated with wheeled walker 208 feet x 1. The patient completed LE strengthening exercises seated: ankle pumps, hip adductor squeezes, resisted hip abduction and hamstring curls all x 20 reps,LAQ x 25 reps. The patient continues to complain of right groin pain.) Physical Therapy Problem List: Detail (1) Decreased R hip strength 2) Recurrent R hip dislocations 3) Non ambulatory on stairs and uneven surfaces) Physical Therapy Goals: 1) Independent with all transfers including car transfers using proper technique and following THR precautions. 2) Increase R LE strnegth 1/3 muscle grade to increase hip stability and to prevent recurrent hip dislocations. 3) Independent ambulation with appropriate assistive device community distances on level and unlevel surfaces including stairs. 4)Assess bed mobility Physical Therapy Plan: PT 1-2 times a day for gait training, transfer training, LE strengthening.
[2018-03-04] MEDS: BREO (FLUTICASONE/VILANTEROL) 200MCG/25MCG INHALER INH SCH (10:06)
[2018-03-04] MEDS: MULTIVITAMINS/MINERALS TABLET PO SCH (10:21)
[2018-03-04] MEDS: POTASSIUM CHLORIDE 20 MEQ TABLET PO SCH ×2 (10:24→21:44)
[2018-03-04] MEDS: CEPHALEXIN 500 MG CAPSULE PO SCH ×3 (10:24→21:44)
[2018-03-04] MEDS: AMIODARONE HCL 200 MG TABLET PO SCH (10:25)
[2018-03-04] MEDS: MAGNESIUM OXIDE 400 MG TABLET PO SCH ×2 (10:25→21:44)
[2018-03-04] MEDS: METOPROLOL SUCC 25 MG TAB.ER PO SCH (10:25)
[2018-03-04] MEDS: CHOLECALCIFEROL 1,000 UNIT TABLET PO SCH (10:27)
[2018-03-04] MEDS: ASCORBIC ACID 500 MG TAB PO SCH ×2 (10:27→21:44)
[2018-03-04] MEDS: TORSEMIDE 20 MG TABLET PO SCH ×2 (10:27→15:46)
[2018-03-04 11:16] LABS: INR 1.7; PROTHROMBIN TIME (PATIENT) 18.5 SECONDS (9.5-12.1)
--- NOTE | 2018-03-04 14:09 | Physical Therapy Tx Note ---
Physical Therapy Tx Note - Treatment Note Tolerated: Good Total Time Spent With Patient: 30 Physical Therapy Tx Note: Detail (Patient was seated in chair upon CHIEF GAUGER arrival. Patient states not feeling well this afternoon, upset stomach. Patient transferred sit to and from stand SBA x1. Patient ambulated 184 feet with wheeled walker SBA x1. Patient performed the following exercises x15-20 reps each: seated marching, LAQ, seated heel raises, seated toe raises, and glut squeezes. Patient tolerated treatment well. Patient reports left glut pain with ambulation. Patient displays decreased strength and endurance with glut squeezes, and seated marching. Patient was left seated in chair with call light within reach.) Physical Therapy Problem List: Detail (1) Decreased R hip strength 2) Recurrent R hip dislocations 3) Non ambulatory on stairs and uneven surfaces) Physical Therapy Goals: 1) Independent with all transfers including car transfers using proper technique and following THR precautions. 2) Increase R LE strnegth 1/3 muscle grade to increase hip stability and to prevent recurrent hip dislocations. 3) Independent ambulation with appropriate assistive device community distances on level and unlevel surfaces including stairs. 4)Assess bed mobility Prognosis: Good Physical Therapy Plan: PT 1-2 times a day for gait training, transfer training, LE strengthening.
[2018-03-04] MEDS ORDERED: WARFARIN 1 MG TABLET PO SCH (16:00)
[2018-03-04] MEDS: FAMOTIDINE 20MG TABLET PO SCH (21:44)
[2018-03-04] MEDS: SENNOSIDES/DOCUSATE SODIUM UD CAPSULE PO SCH (21:44)
[2018-03-04] MEDS: ATORVASTATIN 20 MG TABLET PO SCH (21:44)
[2018-03-04] MEDS: POLYETHYLENE GLY 17 GM PACKET PO SCH (21:44)
[2018-03-04] MEDS: TAMSULOSIN HCL 0.4 MG CAP.ER.24H PO SCH (21:44)
[2018-03-04] MEDS: LEVEMIR FLEXTOUCH 100 UNIT/ML INSULIN PEN SQ SCH (21:50)
[2018-03-05] MEDS: LEVOTHYROXINE SODIUM 150 MCG TABLET PO SCH (06:08)
[2018-03-05 06:38] LABS: CREATININE 1.6 mg/dL (0.7-1.2)
[2018-03-05] MEDS: FERROUS SULFATE 325 MG TAB PO SCH ×3 (08:02→17:39)
[2018-03-05] MEDS: BREO (FLUTICASONE/VILANTEROL) 200MCG/25MCG INHALER INH SCH (09:40)
[2018-03-05] MEDS: MULTIVITAMINS/MINERALS TABLET PO SCH (10:16)
[2018-03-05] MEDS: CEPHALEXIN 500 MG CAPSULE PO SCH ×3 (10:16→21:21)
[2018-03-05] MEDS: POTASSIUM CHLORIDE 20 MEQ TABLET PO SCH ×2 (10:16→21:20)
[2018-03-05] MEDS: METOPROLOL SUCC 25 MG TAB.ER PO SCH (10:17)
[2018-03-05] MEDS: AMIODARONE HCL 200 MG TABLET PO SCH (10:17)
[2018-03-05] MEDS: MAGNESIUM OXIDE 400 MG TABLET PO SCH ×2 (10:17→21:20)
[2018-03-05] MEDS: TORSEMIDE 20 MG TABLET PO SCH ×2 (10:18→16:10)
[2018-03-05] MEDS: ASCORBIC ACID 500 MG TAB PO SCH ×2 (10:19→21:20)
[2018-03-05] MEDS: CHOLECALCIFEROL 1,000 UNIT TABLET PO SCH (10:20)
--- NOTE | 2018-03-05 10:41 | Physical Therapy Tx Note ---
Physical Therapy Tx Note - Treatment Note Tolerated: Good Total Time Spent With Patient: 35 Physical Therapy Tx Note: Detail (Pt standing in room marching in place; just had breathing treatment. [facility] ( about [facility]) and back to room, then again from room to PACU doors (about 135 feet) with B single tip canes and SBA. Took two brief standing rest breaks. Preferred to sit in regular bedside chair, not recliner. Performed 10 reps each of knee extension (LAQ), isometric hip IR/ER, isometric hip abd/add, isometric hip extension B, and seated SLR on L. Sit/stand independently to place blanket in chair to pad armrests, as he tore the skin of L forearm. Nrsg applied clear dressing and sleeve to L forearm. Left up in chair w/call light in reach; nrsg present.) Physical Therapy Problem List: Detail (1) Decreased R hip strength 2) Recurrent R hip dislocations 3) Non ambulatory on stairs and uneven surfaces) Physical Therapy Goals: 1) Independent with all transfers including car transfers using proper technique and following THR precautions. 2) Increase R LE strnegth 1/3 muscle grade to increase hip stability and to prevent recurrent hip dislocations. 3) Independent ambulation with appropriate assistive device community distances on level and unlevel surfaces including stairs. 4)Assess bed mobility Prognosis: Good Physical Therapy Plan: PT 1-2 times a day for gait training, transfer training, LE strengthening.
--- NOTE | 2018-03-05 14:44 | Physical Therapy Tx Note ---
Physical Therapy Tx Note - Treatment Note Tolerated: Good Total Time Spent With Patient: 50 Physical Therapy Tx Note: Detail (Pt sitting up in chair upon arrival. Sit/ stand from chair independently to single tip canes. Ambulated from room to double doors just before ED hallway and back to room w/SBA and single tip canes (about 550 feet). Noted R groin pain after about 350 feet. Independent transfer to chair for brief rest. Performed 15 reps each of knee extension (LAQ ), seated marching, isometric hip IR, isometric hip ER, hip ER w/ elastic band, seated SLR. Did 5 minutes on restorator. Noted fatigue.) Physical Therapy Problem List: Detail (1) Decreased R hip strength 2) Recurrent R hip dislocations 3) Non ambulatory on stairs and uneven surfaces) Physical Therapy Goals: 1) Independent with all transfers including car transfers using proper technique and following THR precautions. 2) Increase R LE strnegth 1/3 muscle grade to increase hip stability and to prevent recurrent hip dislocations. 3) Independent ambulation with appropriate assistive device community distances on level and unlevel surfaces including stairs. 4)Assess bed mobility Prognosis: Good Physical Therapy Plan: PT 1-2 times a day for gait training, transfer training, LE strengthening.
[2018-03-05] MEDS: OXYCODONE/APAP 10MG-325MG TABLET PO PRN (14:46)
[2018-03-05] MEDS: WARFARIN 1 MG TABLET PO SCH (16:10)
[2018-03-05] MEDS: FAMOTIDINE 20MG TABLET PO SCH (21:20)
[2018-03-05] MEDS: TAMSULOSIN HCL 0.4 MG CAP.ER.24H PO SCH (21:20)
[2018-03-05] MEDS: ATORVASTATIN 20 MG TABLET PO SCH (21:20)
[2018-03-05] MEDS: SENNOSIDES/DOCUSATE SODIUM UD CAPSULE PO SCH (21:20)
[2018-03-05] MEDS: LEVEMIR FLEXTOUCH 100 UNIT/ML INSULIN PEN SQ SCH (21:21)
[2018-03-05] MEDS: POLYETHYLENE GLY 17 GM PACKET PO SCH (21:21)
[2018-03-06] MEDS: LEVOTHYROXINE SODIUM 150 MCG TABLET PO SCH (06:41)
[2018-03-06] MEDS: FERROUS SULFATE 325 MG TAB PO SCH ×3 (08:41→17:08)
--- NOTE | 2018-03-06 09:16 | Discharge Summary ---
Providers Discharge Summary Date: 03/07/18 Date of admission: 02/24/18 18:43 Attending physician: SNEHAL VERMA Primary care physician: Alejo Agosto Physical Exam - Vital Signs Vital Signs: Vital Signs - Last 24 Hrs Temp Pulse Resp BP BP Pulse Ox 03/06/18 08:00 97.5 F L 82 18 103/68 97 03/05/18 20:00 97.9 F 83 18 97/59 96 - General General Appearance: Alert, Oriented x3, Cooperative, No acute distress - Head Head exam: Normal inspection - Eye Eye exam: Normal appearance, PERRL Pupils: Normal accommodation - ENT ENT exam: Normal exam, Mucous membranes moist, Normal external ear exam, Normal orophraynx, TM's normal bilaterally Ear exam: Normal external inspection. negative: External canal tenderness Nasal Exam: Normal inspection. negative: Discharge, Sinus tenderness Mouth exam: Normal external inspection, Tongue normal Teeth exam: Normal inspection. negative: Dental caries Throat exam: Normal inspection. negative: Tonsillar erythema, Tonsillar exudate - Neck Neck exam: Normal inspection, Full ROM. negative: Tenderness - Respiratory Respiratory exam: Normal lung sounds bilaterally. negative: Respiratory distress - Cardiovascular Cardiovascular Exam: Regular rate, Normal rhythm, Normal heart sounds Peripheral Pulses: 2+: Dorsalis Pedis (R), Dorsalis Pedis (L), 3+: Radial (R), Radial (L) - GI/Abdominal GI/Abdominal exam: Soft, Normal bowel sounds. negative: Tenderness - Rectal Rectal exam: Deferred - exam: Deferred - Extremities Extremities exam: Normal inspection, Full ROM, Normal capillary refill, Pedal edema (one plus both legs). negative: Tenderness - Back Back exam: Reports: Normal inspection, Full ROM. Denies: Muscle spasm, Rash noted, Tenderness - Neurological Neurological exam: Alert, Normal gait, Oriented X3, Reflexes normal - Psychiatric Psychiatric exam: Normal affect, Normal mood - Skin Skin exam: Dry, Intact, Normal color, Warm Hospitalization - Hospitalization Admission Diagnosis: Right hip dislocation s/p reduction. Deconditioning - Problem List (1) History of dislocation of hip Current Visit: Yes Status: Acute Base Code: Z87.39 - PERSONAL HISTORY OF DISEASES OF THE MS SYS AND CONN TISS Comment: - s/p dislocation of right joint prosthesis. - cont daily ambulation and PT/OT. Discuss with home PT/OT options. - pain medication prn - follow up with Dr. Quiros Orthopedic surgery for post-operative assessment. 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 Right total hip revision arthroplasty on 01/02. To be on abx for a 6 month period as per Orthopedics. (3) Physical deconditioning Current Visit: No Status: Acute Base Code: R53.81 - OTHER MALAISE Comment : 03/06: daily PT/OT, the patient is showing improvement in gait/transfer training, ambulating with the use of walking sticks. Home PT/OT to be arranged at discharge. 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 (6) DVT prophylaxis Current Visit: No Status: Acute Base Code: [id number] - Comment: 03/06: - Coumadin management for DVT prophylaxis and chronic anticoagulation therapy for history of PAF s/p CV - Cont to dose Warfarin with PT/INR check per pharmacy protocol. Pending INR this morning. (7) Full code status Current Visit: No Status: Acute Base Code: Z78.9 - OTHER SPECIFIED HEALTH STATUS Comment: FULLL CODE - Hospitalization Course Hospital Course: Mr. 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 The patient had a right hip replaced January and then on February he dislocated the joint requiring reduction. The patient underwent closed reduction under anesthesia by his Orthopedic surgeon Dr. Rawls, at [facility]. In addition he has been placed on long-term oral prophylactic antibiotics due previous infections of the joint. In addition to his acute complaint the patient has numerous chronic medical conditions which have been managed while in sub-acute rehab. The patient has had daily physical and occupational therapy where the focus has been on gait training and improvement in the patient's transferring and stability. He has shown marked improvement with the use of walking sticks and hip/leg support brace. The patient still complains of right groin pain which is more irritating after completing his daily physical therapy and occupational therapy but then feels better after he has rested for a few hours. Despite this he has met the goals of PT/OT and is safe for continued home care. Pain medication was ordered for the patient which he has used in a limited way. Regarding his other chronic conditions, the patient has continued to receive his home medications as prescribed and there has not been changes in dosing to medication regimen. He will be discharged on his medications as prescribed with follow up care as per his PCP. Abnormal Labs: Abnormal Lab Results 02/24/18 02/25/18 02/25/18 Range/Units 23:00 06:30 06:30 RBC (4.40-5.70) M/uL Hgb (14.0-18.0) gm/dl Hct (42.0-52.0) % MCHC (32-36) g/dl RDW (11.5-14.5) % MPV (7.4-10.4) fl Monocytes % (0-9) % PT 44.8 H* (9.5-12.1) SECONDS Potassium 3.0 L (3.4-4.5) mmol/L Chloride 93 L (98-107) mmol/L Carbon Dioxide 36.0 H (22-29) mmol/L BUN 49 H (8-23) mg/dL Creatinine 1.6 H (0.7-1.2) mg/dL POC Glucose 217 H (70-110) mg/dL Random Glucose 144 H (74-109) mg/dL Calcium 8.7 L (8.8-10.2) mg/dL Iron (59-158) ug/dL 04/02/25/18 02/25/18 Range/Units 07:42 17:00 22:00 RBC (4.40-5.70) M/uL Hgb (14.0-18.0) gm/dl Hct (42.0-52.0) % MCHC (32-36) g/dl RDW (11.5-14.5) % MPV (7.4-10.4) fl Monocytes % (0-9) % PT (9.5-12.1) SECONDS Potassium (3.4-4.5) mmol/L Chloride (98-107) mmol/L Carbon Dioxide (22-29) mmol/L BUN (8-23) mg/dL Creatinine (0.7-1.2) mg/dL POC Glucose 125 H 131 H 160 H (70-110) mg/dL Random Glucose (74-109) mg/dL Calcium (8.8-10.2) mg/dL Iron (59-158) ug/dL 02/26/18 02/26/18 02/26/18 Range/Units 06:13 17:00 22:13 RBC (4.40-5.70) M/uL Hgb (14.0-18.0) gm/dl Hct (42.0-52.0) % MCHC (32-36) g/dl RDW (11.5-14.5) % MPV (7.4-10.4) fl Monocytes % (0-9) % PT 36.4 H (9.5-12.1) SECONDS Potassium (3.4-4.5) mmol/L Chloride (98-107) mmol/L Carbon Dioxide (22-29) mmol/L BUN (8-23) mg/dL Creatinine (0.7-1.2) mg/dL POC Glucose 175 H 171 H (70-110) mg/dL Random Glucose (74-109) mg/dL Calcium (8.8-10.2) mg/dL Iron (59-158) ug/dL 02/27/18 02/27/18 02/27/18 Range/Units 06:15 06:15 06:15 RBC 4.16 L (4.40-5.70) M/uL Hgb 11.4 L (14.0-18.0) gm/dl Hct 37.8 L (42.0-52.0) % MCHC 30.2 L (32-36) g/dl RDW 15.8 H (11.5-14.5) % MPV 11.0 H (7.4-10.4) fl Monocytes % 10.8 H (0-9) % PT 29.2 H (9.5-12.1) SECONDS Potassium 3.2 L (3.4-4.5) mmol/L Chloride 95 L (98-107) mmol/L Carbon Dioxide 36.0 H (22-29) mmol/L BUN 40 H (8-23) mg/dL Creatinine (0.7-1.2) mg/dL POC Glucose (70-110) mg/dL Random Glucose 127 H (74-109) mg/dL Calcium (8.8-10.2) mg/dL Iron 33 L (59-158) ug/dL 02/27/18 02/27/18 02/28/18 Range/Units 07:30 22:11 06:10 RBC (4.40-5.70) M/uL Hgb (14.0-18.0) gm/dl Hct (42.0-52.0) % MCHC (32-36) g/dl RDW (11.5-14.5) % MPV (7.4-10.4) fl Monocytes % (0-9) % PT 27.3 H (9.5-12.1) SECONDS Potassium (3.4-4.5) mmol/L Chloride (98-107) mmol/L Carbon Dioxide (22-29) mmol/L BUN (8-23) mg/dL Creatinine (0.7-1.2) mg/dL POC Glucose 135 H 129 H (70-110) mg/dL Random Glucose (74-109) mg/dL Calcium (8.8-10.2) mg/dL Iron (59-158) ug/dL 02/28/18 03/01/18 03/01/18 Range/Units 22:28 05:40 07:46 RBC (4.40-5.70) M/uL Hgb (14.0-18.0) gm/dl Hct (42.0-52.0) % MCHC (32-36) g/dl RDW (11.5-14.5) % MPV (7.4-10.4) fl Monocytes % (0-9) % PT 23.4 H (9.5-12.1) SECONDS Potassium (3.4-4.5) mmol/L Chloride (98-107) mmol/L Carbon Dioxide (22-29) mmol/L BUN (8-23) mg/dL Creatinine (0.7-1.2) mg/dL POC Glucose 164 H 120 H (70-110) mg/dL Random Glucose (74-109) mg/dL Calcium (8.8-10.2) mg/dL Iron (59-158) ug/dL 03/01/18 03/01/18 03/02/18 Range/Units 17:21 22:08 06:00 RBC (4.40-5.70) M/uL Hgb (14.0-18.0) gm/dl Hct (42.0-52.0) % MCHC (32-36) g/dl RDW (11.5-14.5) % MPV (7.4-10.4) fl Monocytes % (0-9) % PT (9.5-12.1) SECONDS Potassium 3.2 L (3.4-4.5) mmol/L Chloride 92 L (98-107) mmol/L Carbon Dioxide 36.0 H (22-29) mmol/L BUN 39 H (8-23) mg/dL Creatinine 1.4 H (0.7-1.2) mg/dL POC Glucose 132 H 174 H (70-110) mg/dL Random Glucose 124 H (74-109) mg/dL Calcium (8.8-10.2) mg/dL Iron (59-158) ug/dL 03/02/18 03/02/18 03/02/18 Range/Units 06:20 07:30 19:31 RBC (4.40-5.70) M/uL Hgb (14.0-18.0) gm/dl Hct (42.0-52.0) % MCHC (32-36) g/dl RDW (11.5-14.5) % MPV (7.4-10.4) fl Monocytes % (0-9) % PT 21.9 H (9.5-12.1) SECONDS Potassium (3.4-4.5) mmol/L Chloride (98-107) mmol/L Carbon Dioxide (22-29) mmol/L BUN (8-23) mg/dL Creatinine (0.7-1.2) mg/dL POC Glucose 114 H 158 H (70-110) mg/dL Random Glucose (74-109) mg/dL Calcium (8.8-10.2) mg/dL Iron (59-158) ug/dL 03/02/18 03/04/18 03/04/18 Range/Units 22:02 10:44 22:07 RBC (4.40-5.70) M/uL Hgb (14.0-18.0) gm/dl Hct (42.0-52.0) % MCHC (32-36) g/dl RDW (11.5-14.5) % MPV (7.4-10.4) fl Monocytes % (0-9) % PT 18.5 H (9.5-12.1) SECONDS Potassium (3.4-4.5) mmol/L Chloride (98-107) mmol/L Carbon Dioxide (22-29) mmol/L BUN (8-23) mg/dL Creatinine (0.7-1.2) mg/dL POC Glucose 149 H 145 H (70-110) mg/dL Random Glucose (74-109) mg/dL Calcium (8.8-10.2) mg/dL Iron (59-158) ug/dL 03/05/18 03/05/18 03/05/18 Range/Units 06:15 07:50 18:45 RBC (4.40-5.70) M/uL Hgb (14.0-18.0) gm/dl Hct (42.0-52.0) % MCHC (32-36) g/dl RDW (11.5-14.5) % MPV (7.4-10.4) fl Monocytes % (0-9) % PT (9.5-12.1) SECONDS Potassium (3.4-4.5) mmol/L Chloride 92 L (98-107) mmol/L Carbon Dioxide 38.0 H (22-29) mmol/L BUN 52 H (8-23) mg/dL Creatinine 1.6 H (0.7-1.2) mg/dL POC Glucose 116 H 228 H (70-110) mg/dL Random Glucose (74-109) mg/dL Calcium (8.8-10.2) mg/dL Iron (59-158) ug/dL 03/06/18 Range/Units 07:00 RBC (4.40-5.70) M/uL Hgb (14.0-18.0) gm/dl Hct (42.0-52.0) % MCHC (32-36) g/dl RDW (11.5-14.5) % MPV (7.4-10.4) fl Monocytes % (0-9) % PT (9.5-12.1) SECONDS Potassium (3.4-4.5) mmol/L Chloride (98-107) mmol/L Carbon Dioxide (22-29) mmol/L BUN (8-23) mg/dL Creatinine (0.7-1.2) mg/dL POC Glucose 125 H (70-110) mg/dL Random Glucose (74-109) mg/dL Calcium (8.8-10.2) mg/dL Iron (59-158) ug/dL Discharge Medications - Discharge Medications Home Medications: Ambulatory Orders Ascorbic Acid [Vitamin C] 1,000 mg PO BID 11/02/16 [Last Taken 04/14/17] Ferrous Sulfate 325 mg PO DAILY 11/02/16 [Last Taken 04/14/17] Hydromorphone HCl [Dilaudid] 1 mg PO CONT 11/02/16 [Last Taken 04/15/17] Insulin Detemir [Levemir] 6 unit SQ QHS 11/02/16 [Last Taken 04/14/17] Multivit-Min/FA/Lycopen/Lutein [Centrum Silver Tablet] 1 each PO DAILY 11/02/16 [Last Taken 04/14/17] Oxycodone HCl/Acetaminophen [Percocet 10mg/325mg] 1 - 2 tab PO Q4H PRN 11/02/16 [Last Taken 04/14/17] Tamsulosin HCl [Flomax] 0.4 mg PO DAILY 11/02/16 [Last Taken 04/14/17] Warfarin Sodium [Coumadin] 3 mg PO DAILY 11/02/16 [Last Taken 09/03/17 17:00] Cholecalciferol (Vitamin D3) [Vitamin D3] 5,000 unit PO DAILY 02/25/17 [Last Taken 04/14/17] Clotrimazole/Betamethasone Dip [Clotrimazole-Betamethasone Crm] 15 gm TP BID [Last Taken 04/14/17] Levalbuterol Tartrate [Xopenex Hfa] 2 puff INH RESP.Q6H PRN 02/25/17 [Last Taken 04/14/17] Sennosides/Docusate Sodium [Senna-Docusate Sodium Tablet] 2 each PO QHS [Last Taken 04/14/17] Fluticasone/Salmeterol [Advair 250-50 Diskus] 1 each IH BID 09/07/17 [Last Taken Unknown] Bumetanide [Bumex] 2 mg PO BIDDIUR tablet 09/22/17 [Last Taken Unknown] Levothyroxine Sodium [Synthroid] 125 mcg PO DAILYTHY tablet 09/22/17 [Last Taken Unknown] Oxycodone HCl/Acetaminophen [Percocet 10mg/325mg] 1 each PO Q4H PRN tablet [Last Taken Unknown] Oxycodone HCl/Acetaminophen [Percocet 5mg/325mg] 1 udtab PO Q6H PRN tablet [Last Taken Unknown] Atorvastatin Calcium 20 mg PO DAILY #30 tablet 11/13/17 [Last Taken Unknown] Magnesium 400 mg PO DAILY #0 11/13/17 [Last Taken 04/14/17] Metolazone [Zaroxolyn] 2.5 mg PO DAILY #30 tablet 11/13/17 [Last Taken Unknown] Metoprolol Succinate [Toprol Xl] 12.5 mg PO DAILY #30 tab.er.24h 11/13/17 [Last Taken Unknown] Potassium Chloride [Klor-Con] 40 meq PO TIDAC #180 tablet.sa 11/13/17 [Last Taken Unknown] Bifidobacterium Infantis [Align] 4 mg PO DAILY #30 capsule 01/19/18 [Last Taken Unknown] Albuterol Sulfate [Ventolin Hfa] 2 puff INH Q4H PRN inhaler 03/07/18 [Last Taken Unknown] Amiodarone HCl [Pacerone] 200 mg PO DAILY tablet 03/07/18 [Last Taken Unknown] Ascorbic Acid [Vitamin C] 1,000 mg PO BID tab 03/07/18 [Last Taken Unknown] Ferrous Sulfate [Iron] 325 mg PO WMEALS tablet 03/07/18 [Last Taken Unknown] Fluticasone/Vilanterol 200/25 [Breo Ellipta 200-25 Mcg INH] 1 puff INH DAILY inhaler 03/07/18 [Last Taken Unknown] Insulin Detemir [Levemir Flextouch] 6 unit SQ QHS syringe 03/07/18 [Last Taken Unknown] Levothyroxine Sodium [Synthroid] 150 mcg PO DAILYTHY tab 03/07/18 [Last Taken Unknown] Magnesium Oxide [Mag Ox] 400 mg PO BID tab 03/07/18 [Last Taken Unknown] Metolazone [Zaroxolyn] 2.5 mg PO TuSa tablet 03/07/18 [Last Taken Unknown] Metoprolol Succinate [Toprol Xl] 12.5 mg PO DAILY tab.er.24h 03/07/18 [Last Taken Unknown] Multivitamin/Iron/Folic Acid [Centrum] 1 tab PO DAILY tablet 03/07/18 [Last Taken Unknown] Ondansetron [Zofran Odt] 4 mg SL Q6H PRN tab.rapdis 03/07/18 [Last Taken Unknown] Oxycodone HCl/Acetaminophen [Percocet 10mg/325mg] 1 each PO Q6H PRN tablet 03/20 [Last Taken Unknown] Oxycodone HCl/Acetaminophen [Percocet 10mg/325mg] 2 each PO Q6H PRN tablet 03/20 [Last Taken Unknown] Polyethylene Glycol 3350 [Miralax] 17 gm PO QHS packet 03/07/18 [Last Taken Unknown] Potassium Chloride [Klor-Con] 40 meq PO BID tablet.sa 03/07/18 [Last Taken Unknown] Sennosides/Docusate Sodium [Senna Plus] 2 each PO QHS capsule 03/07/18 [Last Taken Unknown] Tamsulosin HCl [Flomax] 0.4 mg PO QHS cap.er.24h 03/07/18 [Last Taken Unknown] Torsemide 20 mg PO [id number] tablet 03/07/18 [Last Taken Unknown] Torsemide 40 mg PO DAILY tablet 03/07/18 [Last Taken Unknown] Warfarin Sodium [Coumadin] 2 mg PO [id number] tablet 03/07/18 [Last Taken Unknown] Warfarin Sodium [Coumadin] 3 mg PO TuSa tablet 03/07/18 [Last Taken Unknown] Discharge Plan - Discharge Instructions Activity at Discharge: Ambulate Only With Your Walker, As Per Physical Therapy Diet at Discharge: Diabetic Diet, Low Fat, Low Cholesterol Additional Instructions: Follow up with Dr. Velazquez as scheduled. Do not drive until you have been cleared by Dr. Velazquez. Follow up with Dr. Aleman on Sunday 03/11 at 3:15PM. [facility] will restart home care services at home following your discharge to home. Quality Measures - Quality Measures Quality Measures: Advance Directives, Documentation of Current Medications in Medical Record, Elder Maltreatment Screen and Follow-Up Plan, Heart Failure, Screening for High Blood Pressure and F/U Documented - Current Medications Quality Measure: Measure #130: Documentation of Current Medications Documentation of Current Medications: <Current Medications Documented/Reviewed> [U2924] - Blood Pressure Screening Quality Measure: Screening for High Blood Pressure and Follow-Up Documented Does Patient Have Any of the Following: Active Dx of HTN Blood Pressure Classification: Normal BP Reading Systolic Measurement: 86 Diastolic Measurement: 55 Screening for High Blood Pressure: Patient Exclusion, Hx of HTN [G9744] - Heart Failure (MARLENY/ARB Therapy) Quality Measure: Heart Failure Left Ventricular Systolic Function: Unknown MARLENY Inhibitor or ARB Therapy for LVSD: Not Eligible - Heart Failure (Beta-shreyas Therapy) Quality Measure: Heart Failure Left Ventricular Systolic Function: Unknown Beta-Shreyas Therapy for LVEF < 40%: Not Eligible - Advance Directives Quality Measure: Measure #47: Care Plan Advance Directives Established: Yes Advance Directives Information Provided To Patient: Yes Advance Directives on File: No Living Will: Yes Power of Director Operating: Yes Power of Director Operating Name: Emelyn Advance Care Planning: <Care Plan/Decision Maker Documented; Discussed & Documented> [9132S] - Elder Abuse Suspicion Index Screening: Elder Abuse Suspicion Index Screening Rely on people for bathing, dressing, shopping, banking, etc: Yes Prevented from getting food, clothes, medication, etc: No Made to feel shamed or threatened by someone: No Forced to sign papers or use money against will: No Feel afraid, touched in ways not wanted or hurt physically: No Poor eye contact, withdrawn, malnourished, cuts or bruises: No Screening Result: Negative result EASI Reference Information: Tony MAE, Johnnie C, Sonam D, Nely Ford.Development and validation of a tool to assist physicians identification of elder abuse: The Elder Abuse Suspicion Index (EASI ). Journal of Elder Abuse and Neglect, 2008; 20 (3): 276-300. - Elder Maltreatment Screen Quality Measures: Elder Maltreatment Screen and Follow-Up Plan Elder Maltreatment Screen: <Negative, No Follow-Up Plan Required> [G8734]
--- NOTE | 2018-03-06 10:00 | Physical Therapy Tx Note ---
Physical Therapy Tx Note - Treatment Note Tolerated: Good Total Time Spent With Patient: 40 Physical Therapy Tx Note: Detail (The patient was up in a standing position when PT arrived with his hip brace on. The patient ambulated with 2 canes a distance of 400 feet x1, 120 feet x 1 and 200 feet x1 with 2 brief rest periods. The patient then completed the following exercises in sitting: manual resistance with hamstring curls, hip abduction x 15 reps, hip adductor squeezes , gluteal squeezes, ankle pumps, LAQ all x 10- 15 reps. The patient complained of R groin pain after the first ambulation (400 feet).) Physical Therapy Problem List: Detail (1) Decreased R hip strength 2) Recurrent R hip dislocations 3) Non ambulatory on stairs and uneven surfaces) Physical Therapy Goals: 1) Independent with all transfers including car transfers using proper technique and following THR precautions. 2) Increase R LE strnegth 1/3 muscle grade to increase hip stability and to prevent recurrent hip dislocations. 3) Independent ambulation with appropriate assistive device community distances on level and unlevel surfaces including stairs. 4)Assess bed mobility Physical Therapy Plan: PT 1-2 times a day for gait training, transfer training, LE strengthening.
[2018-03-06] MEDS: BREO (FLUTICASONE/VILANTEROL) 200MCG/25MCG INHALER INH SCH (10:01)
[2018-03-06] MEDS: CHOLECALCIFEROL 1,000 UNIT TABLET PO SCH (10:26)
[2018-03-06] MEDS: CEPHALEXIN 500 MG CAPSULE PO SCH ×3 (10:27→21:51)
[2018-03-06] MEDS: ASCORBIC ACID 500 MG TAB PO SCH ×2 (10:27→21:52)
[2018-03-06] MEDS: MULTIVITAMINS/MINERALS TABLET PO SCH (10:27)
[2018-03-06] MEDS: POTASSIUM CHLORIDE 20 MEQ TABLET PO SCH ×2 (10:28→21:52)
[2018-03-06] MEDS: AMIODARONE HCL 200 MG TABLET PO SCH (10:28)
[2018-03-06] MEDS: MAGNESIUM OXIDE 400 MG TABLET PO SCH ×2 (10:28→21:52)
[2018-03-06] MEDS: METOPROLOL SUCC 25 MG TAB.ER PO SCH (10:29)
[2018-03-06] MEDS: TORSEMIDE 20 MG TABLET PO SCH ×2 (10:30→17:08)
[2018-03-06 10:39] LABS: INR 1.7; PROTHROMBIN TIME (PATIENT) 18.7 SECONDS (9.5-12.1)
--- NOTE | 2018-03-06 13:59 | Rehab Discharge Summary ---
Patient Information - Patient Information Diagnosis: s/p dislocation right hip, deconditioning Ordered Treatment: PT Evaluate and Treat Surgery: Yes (SONG January,) History: Detail (Pt underwent a SONG in early January, with subsequent rehab. He was discharged home and was living Indly with some assist from daughter until February 22, 2018 when his hip dislocated.) Past Medical/Surgical Hx: PAST MEDICAL/SURGICAL HISTORY Past Surgical History pump trial with dilaudid implanted cath ( permanent device in place) Back surgery X5, neck surgery, Hip & shoulder sx ,Bunionectomy,bilat right hip replacement, AICD , abscess rt thigh, septic hip, hematoma rt thigh , revision x2, evac of hematoma post rt hip; lumbar rhizotomy 05/31/15. permanent pain pump 2015 C2-3 lminectomy 09/19 rt hip arthroplasty 01/18 PMH - Respiratory Hx Respiratory Disorders Yes Hx Asthma Yes Hx Bronchitis No Hx Chronic Obstructive Yes Pulmonary Disease (COPD) Hx Dyspnea Yes Hx Pneumonia Yes: 1989, current 2016 Hx Pulmonary Embolism No Hx Sleep Apnea No Hx Tuberculosis No Hx of CPAP No Hx of SOB Yes: CHF PMH - Cardiovascular Hx Cardiovascular Disorders Yes Hx Abnormal EKG Yes Hx Cardiac Catheterization No Hx Chest Pain No Hx Congestive Heart Failure Yes Hx Deep Vein Thrombosis Yes: 20 years ago after being kicked by a cow, current rt ankle 01/2017 Hx Edema Yes: bilat legs recent hospitalization Hx Heart Attack No Hx Hypertension Yes Hx Irregular Heartbeat Yes: hx a fib had cardioversion 1990 & 01/2017 Hx Palpitations No Hx Pacemaker/Defibrillator Yes: 2014 Hx Vascular Disease Yes Hx Transient Ischemic Attacks No (TIA) Comment: hospitalizations states cardiac arrest during past hospitalization 07/18 PMH - Neuro Hx Neurological Disorders No Hx Brain Tumor No Hx Cerebrovascular Accident No Hx Dementia No Hx Dizziness No Hx Headaches No Hx Neuropathy Yes Hx Parkinson's Disease No Hx Seizures No: denies Hx Speech Problem No Hx Syncope No Hx Transient Ischemic Attacks No (TIA) PMH - GI Hx Gastrointestinal Disorders No Hx Abdominal Pain No Hx Celiac Disease No Hx Crohn's Disease No Hx Diverticulitis No Hx Gastrointestinal Bleed No Hx Gastroesophageal Reflux No: denies reflux Hx Hepatitis/Jaundice No Hx Hiatal Hernia No Hx Irritable Bowel No Hx Liver Disease No Hx Nausea/Vomiting No Hx Obstructive Bowel No Hx Pancreatitis No Hx Rectal Bleeding No Hx Ulcer No Hx Weight Loss/Weight Gain No PMH - Hx Genitourinary Disorders Yes Hx Bladder Problem No Hx Kidney Stones No Hx Prostate Problems No: pt states no but on flomax Hx Renal Disease Yes Hx Urinary Tract Infection No PMH - Endocrine Hx Endocrine Disorders Yes Hx Diabetes Yes Hx Thyroid Disease No Hx of NIDDM Yes Hx of IDDM No Comment: checks blood sugars bid (100-140)/ulcers on feet due to poor circulation PMH - Musculoskeletal Hx Musculoskeletal Disorders Yes Hx Arthritis Yes Hx Back Injury Yes Hx Fibromyalgia No Hx Gout No Hx Musculoskeletal Disease Yes Hx Osteoporosis No Comment: chronic pain; hx septic hip in past PMH - Psych Hx Psychiatric Problems No Hx Anxiety No Hx Behavior Problems No Hx Depression No Hx Emotional Abuse No Hx Sexual Abuse No Hx Suicide Attempt No PMH - Hematology/Oncology Hx Hematology/Oncology Yes Disorders Hx Anemia Yes Hx Blood Disorders No Hx Bruising Yes Hx Cancer Yes: skin Hx Clotting Problems Yes Hx Sickle Cell Disease No Hx Unexplained Bleeding No Hx Blood Transfusion Reaction No Comment: pt to bridge with Lovenox 4 days preop Premorbid Status: Detail (Pt lives alone in a 1 story house with 3 steps and 1 handrailing at the entrance. He has a walk in shower and usually stands to shower. He has an elevated toilet with grab bars. He was Ind with all ADLs and most IADLs with the exception of socks which his daughter assisted with daily. He has a 2 wheeled walker, 2 reachers, sock aid and velcro shoes.) Social History: Detail (Very supportive daughter.) Precautions: [place], Fall, Other (Total hip precautions, patient is to wear hip orthosis when ambulation and knee immobilizer when sitting and walking to bathroom.) - Time With Patient Total Time Spent With Patient (Min): 40 Treatment Procedures: Detail (Initial evaluation, gait training, LE strengthening exercises with use of blue and green theraband.) Subjective Information - Subjective Information Per Patient (The patient continues to have varying complaints of R groin pain primarily when ambulating.) Objective Data - Mental Status Patient Orientation: Oriented x3 - Visual Perception Appears within normal limits for therapeutic activities - ROM Not within normal limits (The patient's R hip is within THR protocol.) - Strength/Tone Not within normal limits (The patien's LE strength is as follows: R hamstring group 4/5, quadricep group 4+/5, hip flexors 4/5 - within hip precautions, hip abductors and extensors 4-/5, adductors 4/5, ankle musculature 4+/5, L LE strength: generally 4+/5 throughout.) - Bed Mobility Independent - Transfers Independent ( The patient is independent with sit to stand and toilet transfer. The patient has completed with his daughter a car transfer to his truck and has denied difficulty.) - Balance Balance Sitting: Good Balance Standing: Good - Gait Detail (The patient ambulates a maximal distance of 350 feet plus with two single point canes with a wide tip independently with hip brace in place. The patient also ambulates with 2 wheeled walker a distance of 300 feet plus independently. The patient ambulated on 3 steps with one railing with supervision for safety only.) - ADL's/IADL's Detail (The patient was independent donning and doffing hip brace.) Therapy Assessment - Therapy Assessment Detail (The patient is independent with all mobility and ambulation. The patient is independent with a HEP of LE strengthening exercises and with hip precautions. The patient is to receive Home Health PT to assess the patient's safety in a home environment.) Patient Education - Patient Education Teaching Topic: Exercise/Activity (The patient completed LE strengthening exercises including with resistive bands LAQ, hamstring curls, hip adductor squeezes, gluteal sets, ankle pumps,hip abduction.) Response: Return Demonstration Teaching Method: Demonstration, Handout Teaching Recipient: Patient Barriers To Learning: Age Related Problem List - Problem List Physical Therapy Problem List: Detail (1) Decreased R hip strength 2) Recurrent R hip dislocations 3) Non ambulatory on stairs and uneven surfaces) Occupational Therapy Problem List: Detail (1. Decreased Ind with self cares. 2. Decreased Ind with don/doffing hip brace.) Goals - Goals Physical Therapy Goals: 1) Independent with all transfers including car transfers using proper technique and following THR precautions. MET. 2) Increase R LE strnegth 1/3 muscle grade to increase hip stability and to prevent recurrent hip dislocations. PARTIALLY MET. 3) Independent ambulation with appropriate assistive device community distances on level and unlevel surfaces including stairs. MET. 4)Assess bed mobility MET Occupational Therapy Goals: Goals Met: 1. Pt will be safe and Ind with total body dressing and showering using adaptive equipment as needed while maintaining hip precautions. 2. Pt will be Ind with don/doffing right hip brace. Plan - Plan Physical Therapy Plan: The patient is discharging on 03/07/18 to home. The patient is to recive Home PT. Occupational Therapy Plan: OT will monitor pt's needs until discharge as he has met all goals at this time.
[2018-03-06] MEDS ORDERED: WARFARIN 1 MG TABLET PO ONE (16:00)
[2018-03-06] MEDS: WARFARIN 1 MG TABLET PO SCH (17:09)
[2018-03-06] MEDS: TAMSULOSIN HCL 0.4 MG CAP.ER.24H PO SCH (21:51)
[2018-03-06] MEDS: FAMOTIDINE 20MG TABLET PO SCH (21:52)
[2018-03-06] MEDS: ATORVASTATIN 20 MG TABLET PO SCH (21:52)
[2018-03-06] MEDS: POLYETHYLENE GLY 17 GM PACKET PO SCH (21:57)
[2018-03-06] MEDS: SENNOSIDES/DOCUSATE SODIUM UD CAPSULE PO SCH (21:57)
[2018-03-06] MEDS: LEVEMIR FLEXTOUCH 100 UNIT/ML INSULIN PEN SQ SCH (22:05)
[2018-03-07] MEDS: LEVOTHYROXINE SODIUM 150 MCG TABLET PO SCH (06:06)
[2018-03-07] MEDS: FERROUS SULFATE 325 MG TAB PO SCH (08:56)
[2018-03-07] MEDS: METOLAZONE 2.5 MG TABLET PO SCH (08:56)
[2018-03-07] MEDS: BREO (FLUTICASONE/VILANTEROL) 200MCG/25MCG INHALER INH SCH (09:16)
[2018-03-07] MEDS: ASCORBIC ACID 500 MG TAB PO SCH (09:29)
[2018-03-07] MEDS: METOPROLOL SUCC 25 MG TAB.ER PO SCH (09:30)
[2018-03-07] MEDS: TORSEMIDE 20 MG TABLET PO SCH (09:30)
[2018-03-07] MEDS: CHOLECALCIFEROL 1,000 UNIT TABLET PO SCH (09:31)
[2018-03-07] MEDS: MULTIVITAMINS/MINERALS TABLET PO SCH (09:31)
[2018-03-07] MEDS: MAGNESIUM OXIDE 400 MG TABLET PO SCH (09:32)
[2018-03-07] MEDS: AMIODARONE HCL 200 MG TABLET PO SCH (09:32)
[2018-03-07] MEDS: POTASSIUM CHLORIDE 20 MEQ TABLET PO SCH (09:32)
--- NOTE | 2018-03-09 08:26 | Rehab Discharge Summary ---
Patient Information - Patient Information Diagnosis: s/p dislocation right hip, deconditioning Ordered Treatment: OT Evaluate and Treat Surgery: Yes (SONG January,) History: Detail (Pt underwent a SONG in early January, with subsequent rehab. He was discharged home and was living Indly with some assist from daughter until February 22, 2018 when his hip dislocated.) Past Medical/Surgical Hx: PAST MEDICAL/SURGICAL HISTORY Past Surgical History pump trial with dilaudid implanted cath ( permanent device in place) Back surgery X5, neck surgery, Hip & shoulder sx ,Bunionectomy,bilat right hip replacement, AICD , abscess rt thigh, septic hip, hematoma rt thigh , revision x2, evac of hematoma post rt hip; lumbar rhizotomy 05/31/15. permanent pain pump 2015 C2-3 lminectomy 09/19 rt hip arthroplasty 01/18 PMH - Respiratory Hx Respiratory Disorders Yes Hx Asthma Yes Hx Bronchitis No Hx Chronic Obstructive Yes Pulmonary Disease (COPD) Hx Dyspnea Yes Hx Pneumonia Yes: 1989, current 2016 Hx Pulmonary Embolism No Hx Sleep Apnea No Hx Tuberculosis No Hx of CPAP No Hx of SOB Yes: CHF PMH - Cardiovascular Hx Cardiovascular Disorders Yes Hx Abnormal EKG Yes Hx Cardiac Catheterization No Hx Chest Pain No Hx Congestive Heart Failure Yes Hx Deep Vein Thrombosis Yes: 20 years ago after being kicked by a cow, current rt ankle 01/2017 Hx Edema Yes: bilat legs recent hospitalization Hx Heart Attack No Hx Hypertension Yes Hx Irregular Heartbeat Yes: hx a fib had cardioversion 1990 & 01/2017 Hx Palpitations No Hx Pacemaker/Defibrillator Yes: 2014 Hx Vascular Disease Yes Hx Transient Ischemic Attacks No (TIA) Comment: hospitalizations states cardiac arrest during past hospitalization 07/18 PMH - Neuro Hx Neurological Disorders No Hx Brain Tumor No Hx Cerebrovascular Accident No Hx Dementia No Hx Dizziness No Hx Headaches No Hx Neuropathy Yes Hx Parkinson's Disease No Hx Seizures No: denies Hx Speech Problem No Hx Syncope No Hx Transient Ischemic Attacks No (TIA) PMH - GI Hx Gastrointestinal Disorders No Hx Abdominal Pain No Hx Celiac Disease No Hx Crohn's Disease No Hx Diverticulitis No Hx Gastrointestinal Bleed No Hx Gastroesophageal Reflux No: denies reflux Hx Hepatitis/Jaundice No Hx Hiatal Hernia No Hx Irritable Bowel No Hx Liver Disease No Hx Nausea/Vomiting No Hx Obstructive Bowel No Hx Pancreatitis No Hx Rectal Bleeding No Hx Ulcer No Hx Weight Loss/Weight Gain No PMH - Hx Genitourinary Disorders Yes Hx Bladder Problem No Hx Kidney Stones No Hx Prostate Problems No: pt states no but on flomax Hx Renal Disease Yes Hx Urinary Tract Infection No PMH - Endocrine Hx Endocrine Disorders Yes Hx Diabetes Yes Hx Thyroid Disease No Hx of NIDDM Yes Hx of IDDM No Comment: checks blood sugars bid (100-140)/ulcers on feet due to poor circulation PMH - Musculoskeletal Hx Musculoskeletal Disorders Yes Hx Arthritis Yes Hx Back Injury Yes Hx Fibromyalgia No Hx Gout No Hx Musculoskeletal Disease Yes Hx Osteoporosis No Comment: chronic pain; hx septic hip in past PMH - Psych Hx Psychiatric Problems No Hx Anxiety No Hx Behavior Problems No Hx Depression No Hx Emotional Abuse No Hx Sexual Abuse No Hx Suicide Attempt No PMH - Hematology/Oncology Hx Hematology/Oncology Yes Disorders Hx Anemia Yes Hx Blood Disorders No Hx Bruising Yes Hx Cancer Yes: skin Hx Clotting Problems Yes Hx Sickle Cell Disease No Hx Unexplained Bleeding No Hx Blood Transfusion Reaction No Comment: pt to bridge with Lovenox 4 days preop Premorbid Status: Detail (Pt lives alone in a 1 story house with 3 steps and 1 handrailing at the entrance. He has a walk in shower and usually stands to shower. He has an elevated toilet with grab bars. He was Ind with all ADLs and most IADLs with the exception of socks which his daughter assisted with daily. He has a 2 wheeled walker, 2 reachers, sock aid and velcro shoes.) Social History: Detail (Very supportive daughter.) Precautions: [place], Fall, Other (Total hip precautions, patient is to wear hip orthosis when ambulation and knee immobilizer when sitting and walking to bathroom.) Objective Data - Pain Pain Present: Yes - Mental Status Patient Orientation: Oriented x3 - Visual Perception Appears within normal limits for therapeutic activities - ROM Not within normal limits (Ozzy shoulder flexion limited due to premorbid injuries , ozzy elbow, wrist and hand AROM WNL.) - Strength/Tone Not within normal limits (Ozzy shoulder strength 4/5, ozzy elbow and wardrobe manager 4+/5) - Coordination Appears within normal limits for therapeutic activities - Bed Mobility Independent - Transfers Independent - Balance Balance Sitting: Good Balance Standing: Good - Sensation Intact - Gait Detail (Pt ambulating with [address] Indly.) - ADL's/IADL's Detail (Pt reports he is Ind with all ADLs, he was able to demonstrate Ind with donning and doffing hip spica brace.) Therapy Assessment - Therapy Assessment Detail (Pt is safe and Ind with all ADLs and functional mobility.) Problem List - Problem List Physical Therapy Problem List: Detail (1) Decreased R hip strength 2) Recurrent R hip dislocations 3) Non ambulatory on stairs and uneven surfaces) Occupational Therapy Problem List: Detail (1. Decreased Ind with self cares. 2. Decreased Ind with don/doffing hip brace.) Goals - Goals Physical Therapy Goals: 1) Independent with all transfers including car transfers using proper technique and following THR precautions. MET. 2) Increase R LE strnegth 1/3 muscle grade to increase hip stability and to prevent recurrent hip dislocations. PARTIALLY MET. 3) Independent ambulation with appropriate assistive device community distances on level and unlevel surfaces including stairs. MET. 4)Assess bed mobility MET Occupational Therapy Goals: Goals Met: 1. Pt will be safe and Ind with total body dressing and showering using adaptive equipment as needed while maintaining hip precautions. 2. Pt will be Ind with don/doffing right hip brace. Prognosis - Prognosis Good Plan - Plan Physical Therapy Plan: The patient is discharging on 03/07/18 to home. The patient is to recive Home PT. Occupational Therapy Plan: Pt discharged home on 03/07/18.
== END 2018-03-07 10:05 | disposition home health service (06) | DRG 538 ==
LOC: MEDSURG 18:43
PROVIDERS: ADMIT Internal Medicine; ATTEND Internal Medicine
DX: S73.004A Unspecified dislocation of right hip, initial encounter (principal); Z96.649 Presence of unspecified artificial hip joint; I10 Essential (primary) hypertension; E03.9 Hypothyroidism, unspecified; J44.9 Chronic obstructive pulmonary disease, unspecified; I50.9 Heart failure, unspecified; E11.9 Type 2 diabetes mellitus without complications; Z79.4 Long term (current) use of insulin; I48.91 Unspecified atrial fibrillation; Z79.01 Long term (current) use of anticoagulants; Z95.0 Presence of cardiac pacemaker; E87.6 Hypokalemia; N18.3 Chronic kidney disease, stage 3 (moderate); R60.0 Localized edema; Z87.891 Personal history of nicotine dependence
CPT/HCPCS: 36416; 80048; 82948; 83540; 83735; 85025; 85610; 97110; 97116; 97530; 99306; 99309; 99316

== ENCOUNTER 2018-07-01 06:26 | Day surgery (SDC) | payer MEDICARE, OTHER ==
[2018-07-01] MEDS ORDERED: MIDAZOLAM HCL 2MG/2ML VIAL IV ONE (06:27)
[2018-07-01] MEDS ORDERED: FENTANYL PF 100MCG/2ML VIAL IV ONE (06:27)
[2018-07-01] MEDS ORDERED: *PACU ONLY* KETAMINE HCL 10 MG/ML (20ML) VIAL IV ONE (06:27)
[2018-07-01] MEDS ORDERED: BUPIVACAINE 0.5% (5MG/ML) PF 30ML VIAL IVP ONE (06:27)
[2018-07-01] MEDS ORDERED: DEXAMETHASONE PRESERVATIVE FREE 10MG/ML VIAL IV ONE (06:27)
[2018-07-01] MEDS ORDERED: LIDOCAINE 1% W/EPI 1:200,000 MPF 30ML SQ ONE (06:27)
[2018-07-01] MEDS ORDERED: BUPIVACAINE 0.5% W/EPI MPF 30 ML VIAL IVP ONE (06:27)
--- NOTE | 2018-07-03 12:58 | Operative Note ---
DATE OF SURGERY: 07/01/2018 PREOPERATIVE DIAGNOSES: 1. OSTEOARTHRITIS RIGHT HIP. 2. GREATER TROCHANTERIC BURSITIS RIGHT HIP. SURGERY: 1. FLUOROSCOPIC-GUIDED INFILTRATION RIGHT GREATER TROCHANTERIC BURSA. 2. INFILTRATION OF RIGHT HIP CAPSULE. SURGEON: LAKHWINDER WALTERS D.O. ANESTHESIA: LOCAL SEDATION. ANESTHESIA PROVIDER: ROSEANN WILSON CRNA. INDICATION: This patient presents with hip replacement and pain, which is quite extensive throughout the hip on the right side. Diagnostics show significant osteoarthritis and degenerative disease. SURGERY: Intravenous line, vital sign monitoring, IV sedation by anesthesia provider. Patient positioned in a modified Gonzalez position, right side up. Sterile prep, sterile technique and under imaging with the AP and lateral skin infiltrated, a #22 gauge needle was inserted into the greater trochanter and 5 mL of 0.5% Marcaine with Dexamethasone was injected into the bursa. Using a # 22 gauge needle and AP and lateral image, the needle was positioned in the capsule and 5 mL of the same solution injected. All areas cleaned, topical antibiotic, and sterile dressing applied. We will monitor and evaluate. cc: Dr. Elan Aleman JOB NUMBER: [id number] MTDD
== END 2018-07-01 09:07 | disposition home or self-care (01) ==
LOC: SUR 06:26
PROVIDERS: ATTEND Pain Medicine Interventional Pain Medicine
DX: M16.11 Unilateral primary osteoarthritis, right hip (principal); M70.61 Trochanteric bursitis, right hip; E11.9 Type 2 diabetes mellitus without complications; Z79.4 Long term (current) use of insulin; I10 Essential (primary) hypertension; Z79.01 Long term (current) use of anticoagulants; E78.00 Pure hypercholesterolemia, unspecified; J45.909 Unspecified asthma, uncomplicated; I50.9 Heart failure, unspecified; I48.91 Unspecified atrial fibrillation
CPT/HCPCS: 20610; 77002; 01992; 85730; J1100; J3010

== ENCOUNTER 2018-08-06 15:58 | Inpatient (IN) | payer MEDICARE, OTHER ==
[2018-08-13] MEDS ORDERED: ALBUTEROL HFA 8 GM INHALER INH PRN (15:26)
[2018-08-13] MEDS: WARFARIN 1 MG TABLET PO SCH (17:17)
[2018-08-13] MEDS: OXYCODONE/APAP 10MG-325MG TABLET PO PRN (17:18)
[2018-08-13] MEDS: FERROUS SULFATE 325 MG TAB PO SCH (17:18)
[2018-08-13] MEDS: TORSEMIDE 20 MG TABLET PO SCH (17:22)
[2018-08-13] MEDS: SENNOSIDES/DOCUSATE SODIUM UD CAPSULE PO SCH (22:03)
[2018-08-13] MEDS: RANITIDINE HCL 150 MG TABLET PO SCH (22:03)
[2018-08-13] MEDS: ASCORBIC ACID 500 MG TAB PO SCH (22:03)
[2018-08-13] MEDS: ATORVASTATIN 20 MG TABLET PO SCH (22:03)
[2018-08-13] MEDS: AMOX TR/POT CLAV. 500MG/125MG TABLET PO SCH (22:04)
[2018-08-13] MEDS: TAMSULOSIN HCL 0.4 MG CAP.ER.24H PO SCH (22:05)
[2018-08-13] MEDS: POLYETHYLENE GLY 17 GM PACKET PO SCH (22:06)
[2018-08-13] MEDS: LEVEMIR FLEXTOUCH 100 UNIT/ML INSULIN PEN SQ SCH (22:15)
--- NOTE | 2018-08-13 22:38 | History & Physical ---
History of Present Illness - Date Date of Service for History & Physical: 08/13/18 - History of Present Illness Admitting Diagnosis: Deconditioning due to syncopal fall History of Present Illness: William Pichardo is a 78 y.o. male who admits for deconditioning after an extended hospitalization at [facility]. He was admitted to [facility] from 07/30/18 to 08/13/2018 after an unwitnessed syncopal episode in his home. Extensive PMHx includes hypothyroidism, CHF, DM II, CKD, Chronic back pain with infusion pain pump, afib, cardiac arrest x 2 with AICD implant, DVT and antiphospholipid syndrome on coumadin. Upon arrival to ED, pt presented with significant LE edema, JOAN and rate controlled Afib. A full workup was done while hospitalized. He was diagnosed with a CHF and COPD exacerbation. Today, pt states that he is feeling well and is glad to be out of that hospital. Staff reports concerns of purple-discolored toes however pt states that there is no pain, numbness or tingling. Reports tolerable pain in his right flank and abdomen as well as left hip. States that he had a "good" bowel movement prior to leaving [facility] this afternoon. States that bowels are managed well with stool softeners. General - Cognitive Patterns Orientation: Oriented x3 - Communication Preferred Language?: American Court Orderly Required: No Level of Education: High School Preferred Method of Learning: Reading Comprehension Ability: No Impairment Able to Read: No Able to Write: No Select best description of speech pattern: Clear Speech Ability to express ideas and wants: Understood Understanding verbal content: Understands - Psychosocial Well-Being Usual Living Arrangement: Alone Living Arrangement Comment: Daughter comes over to check on pt qd. - Physical Functioning Activity Level: Up with assist x1 Turning: Self ad trista ROM Ability: Within Normal Limits Assistive Devices: Straight Cane Ambulation Ability: Needs Assist Bed Mobility: Independent Transfer Ability: Needs Assist Bathing Ability: Needs Assist Personal Hygiene: Needs Assist Dressing Ability: Needs Assist Eating (Feeding) Ability: Independent Toileting Ability: Needs Assist Administer Own Medication: Needs Assist - Continence Bowel Pattern: Normal for Patient Bladder Pattern: Normal - Dental Status Broken or loosely fitting full or partial dentures: No Abnormal mouth tissue (ulcers, masses, oral lesions, etc.): No Inflamed or bleeding gums or loose natural teeth: No Mouth/facial pain, discomfort or difficulty chewing: No - Nutrition Screening Poor oral intake > 1 week: No Unplanned weight loss in specified time frame: No Nutrition Support via tube feedings or parenteral nutrition: No Pressure Ulcer: No Significantly underweight define as BMI <18.5 kg/m2: No Albumin <2.5mg/dL: No Persistent nausea/vomiting/diarrhea >3 days: No Difficulty chewing/swallowing/mouth sores: No Admitting Diagnosis: Yes Nutrition Risk Score: Low Risk Review of Systems Reviewed: No additional complaints except as noted below Constitutional: Reports: As per HPI Respiratory: Denies: Cough Cardiovascular: Denies: Chest pain Gastrointestinal: Reports: As per HPI, Abdominal pain. Denies: Constipation, Diarrhea, Nausea Musculoskeletal: Reports: As per HPI Skin: Reports: As per HPI Past Medical History - SOCIAL HISTORY Smoking Status: Former smoker Alcohol Use: None - SURGICAL HISTORY Past Surgical History: multiple back injs rhizos etc. pump trial with dilaudid implanted cath (permanent device in place). Back surgery X5, neck surgery, Hip & shoulder sx,Bunionectomy,bilat right hip replacement, AICD, abscess rt thigh, septic hip, hematoma rt thigh, revision x2, evac of hematoma post rt hip;. lumbar rhizotomy 05/31/15. permanent pain pump 2015. C2-3 lminectomy 09/19. rt hip arthroplasty 01/18 - RESPIRATORY Hx Respiratory Disorders: Yes Hx Asthma: Yes Hx Bronchitis: No Hx COPD: Yes Hx Dyspnea: Yes ("very slight") Hx Pneumonia: Yes (1989, 2016) Hx Pulmonary Embolism: No Hx Sleep Apnea: No Hx Tuberculosis: No - CARDIOVASCULAR Hx Cardio Disorders: Yes Hx Abnormal EKG: Yes (NSR now) Hx Cardiac Cath: No Hx Chest Pain: No Hx CHF: Yes Hx Deep Vein Thrombosis: Yes (none since 01/2017) Hx Edema: Yes (bilat legs recent hospitalization) Hx Heart Attack: No Hx Hypertension: Yes Hx Irregular Heartbeat: Yes (hx a fib had cardioversion 1990 & 01/2017) Hx Palpitations: No Hx Pacemaker/Defib: Yes (2014) Hx Vascular Disease: Yes Comment:: hospitalizations states cardiac arrest during past hospitalization - NEURO Hx Neuro Disorders: Yes Hx Seizures: No (denies) Hx Weakness: Yes (rt hip weak) - GI Hx GI Disorders: No Hx Abdominal Pain: No Hx Celiac Disease: No Hx Crohn's Disease: No Hx Diverticulitis: No Hx GI Bleed: No Hx Reflux: No (denies reflux on Zantac) Hx Hepatitis/Jaundice: No Hx Hiatal Hernia: No Hx Irritable Bowel: No Hx Liver Disease: No Hx Nausea/Vomiting: No Hx Obstructive Bowel: No Hx Pancreatitis: No Hx Rectal Bleeding: No Hx Ulcer: No Hx Wt Loss/Wt Gain: No - Hx Genitourinary Disorders: Yes Hx Bladder Problem: No Hx Kidney Stones: No Hx Prostate Problems: No (pt states no but on flomax) Hx Renal Disease: Yes (functioning ok per renal DR) Hx UTI: No - ENDOCRINE Hx Endocrine Disorders: Yes Hx Diabetes: Yes Comment:: Last accu 147 today - MUSCULOSKELETAL Hx Musculoskeletal Disorders: Yes Hx Arthritis: Yes Hx Back Injury: Yes Hx Fibromyalgia: No Hx Gout: No Hx Musculoskeletal Disease: Yes Hx Osteoporosis: No Comment:: chronic pain; hx septic hip in past - PSYCH Hx Psych Problems: No Hx Anxiety: No Hx Behavior Problems: No Hx Depression: No Hx Emotional Abuse: No Hx Sexual Abuse: No Hx Suicide Attempt: No - HEMATOLOGY/ONCOLOGY Hx Hematology/Oncology Disorders: Yes Hx Anemia: Yes Hx Blood Disorders: No Hx Bruising: Yes Hx Cancer: Yes (skin) Hx Clotting Problems: Yes Hx Sickle Cell Disease: No Hx Unexplained Bleeding: No Hx Blood Transfusions: Yes (with hip surgery, and hematoma) Hx Blood Transfusion Reaction: No Family Medical History Any Significant Family History?: Yes Hx Cancer: Father, Mother Hx Dementia: Mother *Dementia Comment: mother alzheimers H&P Meds/Allergies - Allergies Allergies: Allergies Allergy/AdvReac Type Severity Reaction Status Date / Time onion Allergy Intermediate NAUSEA Verified 01/30/16 14:13 rivaroxaban [From Xarelto] AdvReac Severe BRUISING Verified 04/10/18 10:00 - Home Medications Previous Rx's Medication Instructions Recorded Bumetanide [Bumex] 2 mg PO BIDDIUR tablet 09/22/17 Levothyroxine Sodium [Synthroid] 125 mcg PO DAILYTHY tablet 09/22/17 Oxycodone HCl/Acetaminophen 1 each PO Q4H PRN tablet 09/22/17 [Percocet 10mg/325mg] Oxycodone HCl/Acetaminophen 1 udtab PO Q6H PRN tablet 09/22/17 [Percocet 5mg/325mg] Atorvastatin Calcium 20 mg PO DAILY #30 tablet 11/13/17 Magnesium 400 mg PO DAILY #0 11/13/17 Metolazone [Zaroxolyn] 2.5 mg PO DAILY #30 tablet 11/13/17 Metoprolol Succinate [Toprol Xl] 12.5 mg PO DAILY #30 tab.er.24h 11/13/17 Potassium Chloride [Klor-Con] 40 meq PO TIDAC #180 tablet.sa 11/13/17 Bifidobacterium Infantis [Align] 4 mg PO DAILY #30 capsule 01/19/18 Albuterol Sulfate [Ventolin Hfa] 2 puff INH Q4H PRN inhaler 03/07/18 Amiodarone HCl [Pacerone] 200 mg PO DAILY tablet 03/07/18 Ascorbic Acid [Vitamin C] 1,000 mg PO BID tab 03/07/18 Ferrous Sulfate [Iron] 325 mg PO WMEALS tablet 03/07/18 Fluticasone/Vilanterol 200/25 1 puff INH DAILY inhaler 03/07/18 [Breo Ellipta 200-25 Mcg INH] Insulin Detemir [Levemir Flextouch] 6 unit SQ QHS syringe 03/07/18 Levothyroxine Sodium [Synthroid] 150 mcg PO DAILYTHY tab 03/07/18 Magnesium Oxide [Mag Ox] 400 mg PO BID tab 03/07/18 Metolazone [Zaroxolyn] 2.5 mg PO TuSa tablet 03/07/18 Metoprolol Succinate [Toprol Xl] 12.5 mg PO DAILY tab.er.24h 03/07/18 Multivitamin/Iron/Folic Acid 1 tab PO DAILY tablet 03/07/18 [Centrum] Ondansetron [Zofran Odt] 4 mg SL Q6H PRN tab.rapdis 03/07/18 Oxycodone HCl/Acetaminophen 1 each PO Q6H PRN tablet 03/07/18 [Percocet 10mg/325mg] Oxycodone HCl/Acetaminophen 2 each PO Q6H PRN tablet 03/07/18 [Percocet 10mg/325mg] Polyethylene Glycol 3350 [Miralax] 17 gm PO QHS packet 03/07/18 Potassium Chloride [Klor-Con] 40 meq PO BID tablet.sa 03/07/18 Sennosides/Docusate Sodium [Senna 2 each PO QHS capsule 03/07/18 Plus] Tamsulosin HCl [Flomax] 0.4 mg PO QHS cap.er.24h 03/07/18 Torsemide 20 mg PO [id number] tablet 03/07/18 Torsemide 40 mg PO DAILY tablet 03/07/18 Warfarin Sodium [Coumadin] 2 mg PO [id number] tablet 03/07/18 Warfarin Sodium [Coumadin] 3 mg PO TuSa tablet 03/07/18 - Active Medications Active Medications: Current Medications Albuterol Sulfate (Ventolin Hfa) 2 puff INH Q6H PRN PRN Reason: SHORTNESS OF BREATH Amiodarone HCl (Pacerone) 200 mg PO DAILY [facility] Amoxicillin/Clavulanate Potassium (Augmentin 500mg/125mg) 1 each PO BID [facility] Stop: 08/17/18 22:01 Last Admin: 08/13/18 22:04 Dose: 1 each Ascorbic Acid (Vitamin C) 1,000 mg PO BID [facility] Last Admin: 08/13/18 22:03 Dose: 1,000 mg Atorvastatin Calcium (Lipitor) 20 mg PO QHS [facility] Last Admin: 08/13/18 22:03 Dose: 20 mg Ferrous Sulfate (Iron) 325 mg PO WMEALS [facility] Last Admin: 08/13/18 17:18 Dose: 325 mg Insulin Detemir (Levemir Flextouch) 10 unit SQ QHS [facility] Levothyroxine Sodium (Synthroid) 125 mcg PO DAILYTHY [facility] Magnesium Oxide (Mag Ox) 400 mg PO DAILY [facility] Metoprolol Succinate (Toprol Xl) 25 mg PO DAILY [facility] Multivitamins/Minerals (Centrum) 1 tab PO DAILY [facility] Oxycodone/Acetaminophen (Percocet 10-325 Mg Tablet) 1 each PO Q4H PRN PRN Reason: PAIN - MOD TO SEVERE (5-10) Last Admin: 08/13/18 17:18 Dose: 1 each Patient Own Med: (Uloric 40 Mg) 1 each PO DAILY [facility] Polyethylene Glycol (Miralax) 17 gm PO QHS [facility] Last Admin: 08/13/18 22:06 Dose: Not Given Ranitidine HCl (Zantac) 150 mg PO BID [facility] Last Admin: 08/13/18 22:03 Dose: 150 mg Senna/Docusate Sodium (Senna Plus) 2 each PO QHS [facility] Last Admin: 08/13/18 22:03 Dose: 2 each Tamsulosin HCl (Flomax) 0.4 mg PO QHS [facility] Last Admin: 08/13/18 22:05 Dose: 0.4 mg Torsemide (Torsemide) 10 mg PO BIDDIUR [facility] Last Admin: 08/13/18 17:22 Dose: 10 mg Vitamin D (Vitamin D3) 5,000 unit PO DAILY [facility] Warfarin Sodium (Coumadin) 2 mg PO TuSa [facility] Warfarin Sodium (Coumadin) 3 mg PO SuMoWeThFr [facility] Last Admin: 08/13/18 17:17 Dose: 3 mg Physical Exam - Vital Signs Vital Signs: Vital Signs - Last 24 Hrs Temp Pulse Resp BP Pulse Ox 08/13/18 20:00 97.9 F 84 16 100/71 96 08/13/18 17:08 84 18 98/64 96 - General General Appearance: Alert, Oriented x3 - Head Head exam: Normocephalic - Eye Eye exam: Normal appearance - Neck Neck exam: Normal inspection - Respiratory Respiratory exam: negative: Accessory muscle use, Respiratory distress - GI/Abdominal GI/Abdominal exam: negative: Distended - Rectal Rectal exam: Deferred - exam: Deferred - Extremities Extremities exam: Normal capillary refill - Neurological Neurological exam: Alert - Psychiatric Psychiatric exam: Normal affect H&P Results - Labs Result Diagrams: 08/17/18 10:00 Labs Last 24 Hours: Laboratory Results - last 24 hr 08/13/18 17:00 POC Glucose 193 H Discharge Potential - Discharge Needs Community Services Used Prior to Admission: Home Health Nurse Patient Discharge Plan Description: Return Home Community Services Needed at Discharge: Home Health Nurse, Physical Therapy Plan - Swing Bed Certification Initial Certification Due: 08/13/18 14 Day Re-Cert Due: 08/27/18 44 Day Re-Cert Due: 09/26/18 74 Day Re-Cert Due: 10/26/18 - Detailed Diagnosis and Plan (1) Physical deconditioning Current Visit: Yes Status: Acute Base Code: R53.81 - OTHER MALAISE Priority: High Comment: 08/13/18: -PT/OT evaluation and treatment. (2) Atrial fibrillation Current Visit: Yes Status: Acute Base Code: I48.91 - UNSPECIFIED ATRIAL FIBRILLATION (3) HTN (hypertension) Current Visit: Yes Status: Acute Base Code: I10 - ESSENTIAL (PRIMARY) HYPERTENSION Comment: 08/13/18: -Continue Metoprolol 25mg q. day -Monitor BP daily (4) Hyperlipidemia Current Visit: Yes Status: Acute Base Code: E78.5 - HYPERLIPIDEMIA, UNSPECIFIED Comment: 08/13/18: -Continue Atorvastatin 20mg daily (5) Antiphospholipid antibody syndrome Current Visit: Yes Status: Acute Base Code: D68.61 - ANTIPHOSPHOLIPID SYNDROME Comment: 08/13/18: -Continue Coumadin 2mg M, W, Th, F, Sun -Continue Coumadin 3 mg Tu, Sat -Ferrous sulfate TID (6) COPD (chronic obstructive pulmonary disease) Current Visit: Yes Status: Acute Base Code: J44.9 - CHRONIC OBSTRUCTIVE PULMONARY DISEASE, UNSPECIFIED Comment: 08/13/18: -Continue Symbicort BID -Continue Albuterol PRN (7) Full code status Current Visit: Yes Status: Acute Base Code: Z78.9 - OTHER SPECIFIED HEALTH STATUS Comment: 08/13/18: FULLL CODE (8) Hypothyroidism Current Visit: Yes Status: Acute Qualifiers: Hypothyroidism type: unspecified Qualified Code(s): E03.9 - Hypothyroidism , unspecified Base Code: E03.9 - HYPOTHYROIDISM, UNSPECIFIED Comment: 08/13/18: -Continue Levothyroxine 125mcg daily (9) CHF (congestive heart failure) Current Visit: Yes Status: Chronic Qualifiers: Qualified Code(s): I50.32 - Chronic diastolic (congestive) heart failure Base Code: I50.9 - HEART FAILURE, UNSPECIFIED Comment: 08/13/18: -Continue Torsemide 10mg BID -Continue Metoprolol 25mg daily, hold for SBP less than 120 -F/u with Mill Platform Supervisor -2L Fluid restriction (10) Diabetes Current Visit: Yes Status: Chronic Qualifiers: Diabetes mellitus type: type 2 Diabetes mellitus terminal worker insulin use: with terminal worker use Diabetes mellitus complication status: with hyperglycemia Qualified Code(s): E11.65 - Type 2 diabetes mellitus with hyperglycemia; Z79.4 - residential (current) use of insulin Base Code: E11.9 - TYPE 2 DIABETES MELLITUS WITHOUT COMPLICATIONS Comment: : -Continue Levemir 10 units daily -Accuchecks AC & HS -ADA diet
[2018-08-14] MEDS: LEVOTHYROXINE SODIUM 125 MCG TABLET PO SCH (06:08)
[2018-08-14] MEDS: OXYCODONE/APAP 10MG-325MG TABLET PO PRN ×4 (06:11→21:56)
[2018-08-14] MEDS: FERROUS SULFATE 325 MG TAB PO SCH ×3 (07:59→18:08)
[2018-08-14] MEDS ORDERED: ULORIC 40 MG PO SCH (10:00)
[2018-08-14] MEDS: BREO (FLUTICASONE/VILANTEROL) 200MCG/25MCG INHALER INH SCH (10:02)
[2018-08-14] MEDS: MAGNESIUM OXIDE 400 MG TABLET PO SCH (10:08)
[2018-08-14] MEDS: TORSEMIDE 20 MG TABLET PO SCH ×2 (10:08→15:53)
[2018-08-14] MEDS: AMIODARONE HCL 200 MG TABLET PO SCH (10:09)
[2018-08-14] MEDS: METOPROLOL SUCC 25 MG TAB.ER PO SCH (10:09)
[2018-08-14] MEDS: CHOLECALCIFEROL 1,000 UNIT TABLET PO SCH (10:09)
[2018-08-14] MEDS: ASCORBIC ACID 500 MG TAB PO SCH ×2 (10:10→21:57)
[2018-08-14] MEDS: AMOX TR/POT CLAV. 500MG/125MG TABLET PO SCH ×2 (10:10→22:04)
[2018-08-14] MEDS: MULTIVITAMINS/MINERALS TABLET PO SCH (10:39)
[2018-08-14] MEDS: RANITIDINE HCL 150 MG TABLET PO SCH ×2 (10:41→21:58)
--- NOTE | 2018-08-14 11:59 | Rehab Evaluation ---
Patient Information - Patient Information Diagnosis: Deconditioning d/t syncopal fall Ordered Treatment: OT Evaluate and Treat Status: Initial Evaluation Past Medical/Surgical Hx: PAST MEDICAL/SURGICAL HISTORY Past Surgical History multiple back injs rhizos etc pump trial with dilaudid implanted cath ( permanent device in place) Back surgery X5, neck surgery, Hip & shoulder sx ,Bunionectomy,bilat right hip replacement, AICD , abscess rt thigh, septic hip, hematoma rt thigh , revision x2, evac of hematoma post rt hip; lumbar rhizotomy 05/31/15. permanent pain pump 2015 C2-3 lminectomy 09/19 rt hip arthroplasty 01/18 PMH - Respiratory Hx Respiratory Disorders Yes Hx Asthma Yes Hx Bronchitis No Hx Chronic Obstructive Yes Pulmonary Disease (COPD) Hx Dyspnea Yes: "very slight" Hx Pneumonia Yes: 1989, 2016 Hx Pulmonary Embolism No Hx Sleep Apnea No Hx Tuberculosis No Hx of CPAP No Hx of SOB Yes: CHF PMH - Cardiovascular Hx Cardiovascular Disorders Yes Hx Abnormal EKG Yes: NSR now Hx Cardiac Catheterization No Hx Chest Pain No Hx Congestive Heart Failure Yes Hx Deep Vein Thrombosis Yes: none since 01/2017 Hx Edema Yes: bilat legs recent hospitalization Hx Heart Attack No Hx Hypertension Yes Hx Irregular Heartbeat Yes: hx a fib had cardioversion 1990 & 01/2017 Hx Palpitations No Hx Pacemaker/Defibrillator Yes: 2014 Hx Vascular Disease Yes Hx Transient Ischemic Attacks No (TIA) Comment: hospitalizations states cardiac arrest during past hospitalization 07/18 PMH - Neuro Hx Neurological Disorders Yes Hx Brain Tumor No Hx Cerebrovascular Accident No Hx Dementia No Hx Dizziness No Hx Headaches No Hx Neuropathy Yes Hx Parkinson's Disease No Hx Seizures No: denies Hx Speech Problem No Hx Syncope No Hx Transient Ischemic Attacks No (TIA) Hx Weakness Yes: rt hip weak PMH - GI Hx Gastrointestinal Disorders No Hx Abdominal Pain No Hx Celiac Disease No Hx Crohn's Disease No Hx Diverticulitis No Hx Gastrointestinal Bleed No Hx Gastroesophageal Reflux No: denies reflux on Zantac Hx Hepatitis/Jaundice No Hx Hiatal Hernia No Hx Irritable Bowel No Hx Liver Disease No Hx Nausea/Vomiting No Hx Obstructive Bowel No Hx Pancreatitis No Hx Rectal Bleeding No Hx Ulcer No Hx Weight Loss/Weight Gain No PMH - Hx Genitourinary Disorders Yes Hx Bladder Problem No Hx Kidney Stones No Hx Prostate Problems No: pt states no but on flomax Hx Renal Disease Yes: functioning ok per renal DR Hx Urinary Tract Infection No PMH - Endocrine Hx Endocrine Disorders Yes Hx Diabetes Yes Hx Thyroid Disease No Hx of NIDDM Yes Hx of IDDM Yes Comment: Last accu 147 today PMH - Musculoskeletal Hx Musculoskeletal Disorders Yes Hx Arthritis Yes Hx Back Injury Yes Hx Fibromyalgia No Hx Gout No Hx Musculoskeletal Disease Yes Hx Osteoporosis No Comment: chronic pain; hx septic hip in past PMH - Psych Hx Psychiatric Problems No Hx Anxiety No Hx Behavior Problems No Hx Depression No Hx Emotional Abuse No Hx Sexual Abuse No Hx Suicide Attempt No PMH - Hematology/Oncology Hx Hematology/Oncology Yes Disorders Hx Anemia Yes Hx Blood Disorders No Hx Bruising Yes Hx Cancer Yes: skin Hx Clotting Problems Yes Hx Sickle Cell Disease No Hx Unexplained Bleeding No Hx Blood Transfusion Reaction No Comment: pt to bridge with Lovenox 4 days preop Premorbid Status: Detail (Pt. fell on 07/30/18 and was admitted to [facility], d/c on 08/13/18. Daughter stated pt. has L1 fracture. Pt. was at [facility] February 22 d/t hip dislocation. Pt. reported being Ind. with self-care and household responsibilities with some assistance from daughter, such as donning socks and compression garments (dtr stated she checks his wounds/skin daily).) Social History: Detail (Lives alone in 1 story house with 3 step entry and 1 railing. Bathroom has a walk-in shower (and pt typically stands) with grab bar and HH shower head; elevated toilet seat with grab bars. Pt. has a 2 wheeled walker but dislikes using it, a standard cane, multiple reachers, sock aid ( doesn't use), and velcro shoes.) Precautions: [place], Fall - Time With Patient Total Time Spent With Patient (Min): 20 Treatment Procedures: Detail (OT Amy Early. Session was concluded with pt. seated in arm chair with call light and bedside tray within reach, and daughter present.) Subjective Information - Subjective Information Per Patient (When asked what his goals are for therapy to be able to return home , pt. replied shoulders and hip. Stated R shd has been bothering for a while, and L shd has been hurting also since fall. Pt. does not like to do self-care skills with therapy (i.e. dressing and bathing) d/t privacy.) Objective Data - Pain Pain Present: Yes (06/12 pain at Ozzy. shoulders and groin. Nursing staff was notified.) - Mental Status Patient Orientation: Oriented x3 - Visual Perception Appears within normal limits for therapeutic activities - ROM Not within normal limits (Significantly limited Ozzy. shd AROM d/t premorbid injuries; R flex approx 90, L flex approx. 110. R abd approx. 60, L abd approx. 90. BUE elbow flex, ext, wrist flex, ext, sup/pro, and digit AROM WFL.) - Strength/Tone Not within normal limits (BUE shd flex 4-/5, abd 3/5; biceps, triceps, and greeter strength 4+/5.) - Coordination Appears within normal limits for therapeutic activities - Transfers Independent (Ind. sit<>stand from arm chair to walker. Pt. reported difficulty getting up from low surfaces such as the arm chair (increased hip pain), and builds up with extra pillows.) - Balance Balance Sitting: Good Balance Standing: Fair - Sensation Deficit (R MF and Th diminished light touch; all other fingertips Ozzy. light touch intact. Pt. reported R hand gets numb at times. Educ. was provided on precautions d/t diminished sensation.) - ADL's/IADL's Detail (Pt. was dressed prior to OT session; pt. and daughter stated he dressed with modified Ind. (use of school bus dispatcher) except for assistance with socks. Pt. declined to participate in other ADL tasks at this time. Pt. has knowledge of use of AE for modified dressing techniques. Pt. reports decreased activity tolerance, mostly d/t high pain level.) Therapy Assessment - Therapy Assessment Detail (Pt. would benefit from skilled OT services to maximize [place] with his typical ADL routine and assess safety during bathing if pt. will permit. Pt. has a positive support system and assistance at home if needed ( daughter), and appropriate AE at home.) Problem List - Problem List Occupational Therapy Problem List: Detail (decreased Ind. w/ ADL's, reduced activity tolerance, decreased BUE strength) Goals - Goals Occupational Therapy Goals: 1) Pt. will be modified Ind. with his typical self- care ADL routine. 2) Pt. will be Ind. with BUE HEP with use of handout if needed. Prognosis - Prognosis Moderate Plan - Plan Occupational Therapy Plan: Provide OT services 2-4x/week Mon-Fri during typical rehab business hours until pt. meets all OT goals and/or is d/c from hospital.
--- NOTE | 2018-08-14 14:09 | Rehab Evaluation ---
Patient Information - Patient Information Diagnosis: Deconditioning d/t syncopal fall Ordered Treatment: PT Evaluate and Treat Status: Initial Evaluation Past Medical/Surgical Hx: PAST MEDICAL/SURGICAL HISTORY Past Surgical History multiple back injs rhizos etc pump trial with dilaudid implanted cath ( permanent device in place) Back surgery X5, neck surgery, Hip & shoulder sx ,Bunionectomy,bilat right hip replacement, AICD , abscess rt thigh, septic hip, hematoma rt thigh , revision x2, evac of hematoma post rt hip; lumbar rhizotomy 05/31/15. permanent pain pump 2015 C2-3 lminectomy 09/19 rt hip arthroplasty 01/18 PMH - Respiratory Hx Respiratory Disorders Yes Hx Asthma Yes Hx Bronchitis No Hx Chronic Obstructive Yes Pulmonary Disease (COPD) Hx Dyspnea Yes: "very slight" Hx Pneumonia Yes: 1989, 2016 Hx Pulmonary Embolism No Hx Sleep Apnea No Hx Tuberculosis No Hx of CPAP No Hx of SOB Yes: CHF PMH - Cardiovascular Hx Cardiovascular Disorders Yes Hx Abnormal EKG Yes: NSR now Hx Cardiac Catheterization No Hx Chest Pain No Hx Congestive Heart Failure Yes Hx Deep Vein Thrombosis Yes: none since 01/2017 Hx Edema Yes: bilat legs recent hospitalization Hx Heart Attack No Hx Hypertension Yes Hx Irregular Heartbeat Yes: hx a fib had cardioversion 1990 & 01/2017 Hx Palpitations No Hx Pacemaker/Defibrillator Yes: 2014 Hx Vascular Disease Yes Hx Transient Ischemic Attacks No (TIA) Comment: hospitalizations states cardiac arrest during past hospitalization 07/18 PMH - Neuro Hx Neurological Disorders Yes Hx Brain Tumor No Hx Cerebrovascular Accident No Hx Dementia No Hx Dizziness No Hx Headaches No Hx Neuropathy Yes Hx Parkinson's Disease No Hx Seizures No: denies Hx Speech Problem No Hx Syncope No Hx Transient Ischemic Attacks No (TIA) Hx Weakness Yes: rt hip weak PMH - GI Hx Gastrointestinal Disorders No Hx Abdominal Pain No Hx Celiac Disease No Hx Crohn's Disease No Hx Diverticulitis No Hx Gastrointestinal Bleed No Hx Gastroesophageal Reflux No: denies reflux on Zantac Hx Hepatitis/Jaundice No Hx Hiatal Hernia No Hx Irritable Bowel No Hx Liver Disease No Hx Nausea/Vomiting No Hx Obstructive Bowel No Hx Pancreatitis No Hx Rectal Bleeding No Hx Ulcer No Hx Weight Loss/Weight Gain No PMH - Hx Genitourinary Disorders Yes Hx Bladder Problem No Hx Kidney Stones No Hx Prostate Problems No: pt states no but on flomax Hx Renal Disease Yes: functioning ok per renal DR Hx Urinary Tract Infection No PMH - Endocrine Hx Endocrine Disorders Yes Hx Diabetes Yes Hx Thyroid Disease No Hx of NIDDM Yes Hx of IDDM Yes Comment: Last accu 147 today PMH - Musculoskeletal Hx Musculoskeletal Disorders Yes Hx Arthritis Yes Hx Back Injury Yes Hx Fibromyalgia No Hx Gout No Hx Musculoskeletal Disease Yes Hx Osteoporosis No Comment: chronic pain; hx septic hip in past PMH - Psych Hx Psychiatric Problems No Hx Anxiety No Hx Behavior Problems No Hx Depression No Hx Emotional Abuse No Hx Sexual Abuse No Hx Suicide Attempt No PMH - Hematology/Oncology Hx Hematology/Oncology Yes Disorders Hx Anemia Yes Hx Blood Disorders No Hx Bruising Yes Hx Cancer Yes: skin Hx Clotting Problems Yes Hx Sickle Cell Disease No Hx Unexplained Bleeding No Hx Blood Transfusion Reaction No Comment: pt to bridge with Lovenox 4 days preop Premorbid Status: Detail (Pt. fell on 07/30/18 and was admitted to [facility], d/c on 08/13/18. Daughter stated pt. has L1 fracture. Pt. was at [facility] February 22 d/t hip dislocation. Pt. reported being Ind. with self-care and household responsibilities with some assistance from daughter, such as donning socks and compression garments (dtr stated she checks his wounds/skin daily).) Social History: Detail (Lives alone in 1 story house with 3 step entry and 1 railing. Bathroom has a walk-in shower (and pt typically stands) with grab bar and HH shower head; elevated toilet seat with grab bars. Pt. has a 2 wheeled walker but dislikes using it, a standard cane, multiple reachers, sock aid ( doesn't use), and velcro shoes.) Precautions: [place], Fall - Time With Patient Total Time Spent With Patient (Min): 30 Treatment Procedures: Detail (Initial Evaluation) Subjective Information - Subjective Information Per Patient (The patient had complaints of pain R groin region. The patient did not rate his pain using 0-10 pain scale.) Objective Data - Mental Status Patient Orientation: Oriented x3 - Visual Perception Appears within normal limits for therapeutic activities - ROM Not within normal limits (The patient's R hip pain was not tested secondary to pain complaints. All other AROM was WFL.) - Strength/Tone Not within normal limits (The patient's LE strength is as follows: R hip flexors 3/5, L 4-/5, hip abductors R 3+/5, L 4/5, hip adductors R 4-/5, L 4/5, extensors bilaterally 3+/5, knee flexors R 4-/5, L 4+/5, knee extensors R 4/5, L 4+/5, ankle musculature 5/5.) - Bed Mobility Needs Assist (Not assessed since patient was up in chair. Patient denies difficulty with bed mobility.) - Transfers Independent (Independent sit to and from stand.) - Balance Balance Sitting: Good Balance Standing: Fair (The patient requires support of walker to stand.) - Gait Detail (The patient ambulated with wheeled walker a distance of 134 feet x 1 with supervision for safety and 2 rest periods. Patient reported increased pain after ambulating and increased fatigue.) Therapy Assessment - Therapy Assessment Detail (The patient exhibits decreased LE strength and decreased ability to complete physical activity.) Problem List - Problem List Physical Therapy Problem List: Detail (1) Decreased LE strength 2) Decreased ability to complete prolonged phyiscal activity 3) R hip pain which is limiting patient's function) Goals - Goals Physical Therapy Goals: 1) Increase LE strength 1/3 muscle to improve the patient's ability to complete functional activities. 2) The patient will ambulate stairs with supervision for safety. 3) The patient will ambulate distances of 300 feet plus with assistive device independently. 4) The patient will tolerate 30 to 45 minutes of physical activity with one rest period. Prognosis - Prognosis Good Plan - Plan Physical Therapy Plan: PT M-F 1 to 2 times a day for ambulation, LE strengthening exercises, balance exercises and mobility.
[2018-08-14] MEDS: ALLOPURINOL 100 MG TAB PO SCH (14:33)
[2018-08-14] MEDS: WARFARIN 1 MG TABLET PO SCH (15:53)
[2018-08-14] MEDS: TAMSULOSIN HCL 0.4 MG CAP.ER.24H PO SCH (21:58)
[2018-08-14] MEDS: SENNOSIDES/DOCUSATE SODIUM UD CAPSULE PO SCH (21:58)
[2018-08-14] MEDS: ATORVASTATIN 20 MG TABLET PO SCH (21:58)
[2018-08-14] MEDS: POLYETHYLENE GLY 17 GM PACKET PO SCH (21:59)
[2018-08-14] MEDS: LEVEMIR FLEXTOUCH 100 UNIT/ML INSULIN PEN SQ SCH (22:05)
[2018-08-15] MEDS: LEVOTHYROXINE SODIUM 125 MCG TABLET PO SCH (06:02)
[2018-08-15] MEDS: FERROUS SULFATE 325 MG TAB PO SCH ×3 (08:42→17:43)
[2018-08-15] MEDS: ALBUTEROL SULFATE (0.083%) 2.5 MG/3 ML NEB INH PRN (09:50)
[2018-08-15] MEDS: BREO (FLUTICASONE/VILANTEROL) 200MCG/25MCG INHALER INH SCH (09:50)
[2018-08-15] MEDS: AMOX TR/POT CLAV. 500MG/125MG TABLET PO SCH ×2 (10:05→21:56)
[2018-08-15] MEDS: MULTIVITAMINS/MINERALS TABLET PO SCH (10:06)
[2018-08-15] MEDS: MAGNESIUM OXIDE 400 MG TABLET PO SCH (10:06)
[2018-08-15] MEDS: AMIODARONE HCL 200 MG TABLET PO SCH (10:06)
[2018-08-15] MEDS: ASCORBIC ACID 500 MG TAB PO SCH ×2 (10:07→21:45)
[2018-08-15] MEDS: METOPROLOL SUCC 25 MG TAB.ER PO SCH (10:07)
[2018-08-15] MEDS: CHOLECALCIFEROL 1,000 UNIT TABLET PO SCH (10:07)
[2018-08-15] MEDS: RANITIDINE HCL 150 MG TABLET PO SCH ×2 (10:09→21:45)
[2018-08-15] MEDS: ALLOPURINOL 100 MG TAB PO SCH (10:09)
[2018-08-15 10:40] LABS: INR 2.9; PROTHROMBIN TIME (PATIENT) 28.8 SECONDS (9.5-12.1)
[2018-08-15] MEDS: TORSEMIDE 20 MG TABLET PO SCH ×3 (11:54→21:45)
[2018-08-15] MEDS: OXYCODONE/APAP 10MG-325MG TABLET PO PRN ×3 (11:55→21:48)
[2018-08-15] MEDS: WARFARIN 1 MG TABLET PO SCH (16:13)
[2018-08-15] MEDS: ATORVASTATIN 20 MG TABLET PO SCH (21:45)
[2018-08-15] MEDS: SENNOSIDES/DOCUSATE SODIUM UD CAPSULE PO SCH (21:45)
[2018-08-15] MEDS: POLYETHYLENE GLY 17 GM PACKET PO SCH (21:45)
[2018-08-15] MEDS: LEVEMIR FLEXTOUCH 100 UNIT/ML INSULIN PEN SQ SCH (21:49)
[2018-08-15] MEDS: TAMSULOSIN HCL 0.4 MG CAP.ER.24H PO SCH (21:57)
[2018-08-16] MEDS: ALBUTEROL SULFATE (0.083%) 2.5 MG/3 ML NEB INH PRN ×2 (01:18→09:53)
[2018-08-16] MEDS: LEVOTHYROXINE SODIUM 125 MCG TABLET PO SCH (06:03)
[2018-08-16] MEDS: FERROUS SULFATE 325 MG TAB PO SCH ×3 (08:37→17:53)
[2018-08-16] MEDS: OXYCODONE/APAP 10MG-325MG TABLET PO PRN ×3 (08:53→21:45)
[2018-08-16] MEDS: BREO (FLUTICASONE/VILANTEROL) 200MCG/25MCG INHALER INH SCH (09:53)
[2018-08-16] MEDS: MULTIVITAMINS/MINERALS TABLET PO SCH (10:37)
[2018-08-16] MEDS: RANITIDINE HCL 150 MG TABLET PO SCH ×2 (10:38→21:35)
[2018-08-16] MEDS: METOPROLOL SUCC 25 MG TAB.ER PO SCH (10:38)
[2018-08-16] MEDS: ASCORBIC ACID 500 MG TAB PO SCH ×2 (10:38→21:35)
[2018-08-16] MEDS: AMOX TR/POT CLAV. 500MG/125MG TABLET PO SCH ×2 (10:38→21:36)
[2018-08-16] MEDS: AMIODARONE HCL 200 MG TABLET PO SCH (10:39)
[2018-08-16] MEDS: ALLOPURINOL 100 MG TAB PO SCH (10:39)
[2018-08-16] MEDS: MAGNESIUM OXIDE 400 MG TABLET PO SCH (10:39)
[2018-08-16] MEDS: CHOLECALCIFEROL 1,000 UNIT TABLET PO SCH (10:40)
[2018-08-16] MEDS: TORSEMIDE 20 MG TABLET PO SCH ×3 (10:41→16:21)
[2018-08-16] MEDS: MAGNESIUM HYDROXIDE 30 ML UDC PO PRN (13:16)
[2018-08-16] MEDS: WARFARIN 1 MG TABLET PO SCH (16:20)
[2018-08-16] MEDS: TAMSULOSIN HCL 0.4 MG CAP.ER.24H PO SCH (21:35)
[2018-08-16] MEDS: ATORVASTATIN 20 MG TABLET PO SCH (21:35)
[2018-08-16] MEDS: POLYETHYLENE GLY 17 GM PACKET PO SCH (21:38)
[2018-08-16] MEDS: SENNOSIDES/DOCUSATE SODIUM UD CAPSULE PO SCH (21:38)
[2018-08-16] MEDS: LEVEMIR FLEXTOUCH 100 UNIT/ML INSULIN PEN SQ SCH (21:45)
[2018-08-17] MEDS: LEVOTHYROXINE SODIUM 125 MCG TABLET PO SCH (06:15)
[2018-08-17] MEDS: OXYCODONE/APAP 10MG-325MG TABLET PO PRN ×3 (06:17→13:59)
[2018-08-17] MEDS: FERROUS SULFATE 325 MG TAB PO SCH ×3 (08:01→17:45)
[2018-08-17] MEDS: MAGNESIUM OXIDE 400 MG TABLET PO SCH (09:24)
[2018-08-17] MEDS: MAGNESIUM HYDROXIDE 30 ML UDC PO PRN ×2 (09:24→20:13)
[2018-08-17] MEDS: MULTIVITAMINS/MINERALS TABLET PO SCH (09:24)
[2018-08-17] MEDS: ALLOPURINOL 100 MG TAB PO SCH (09:25)
[2018-08-17] MEDS: CHOLECALCIFEROL 1,000 UNIT TABLET PO SCH (09:25)
[2018-08-17] MEDS: RANITIDINE HCL 150 MG TABLET PO SCH ×2 (09:25→21:37)
[2018-08-17] MEDS: AMIODARONE HCL 200 MG TABLET PO SCH (09:25)
[2018-08-17] MEDS: METOPROLOL SUCC 25 MG TAB.ER PO SCH (09:25)
[2018-08-17] MEDS: ASCORBIC ACID 500 MG TAB PO SCH ×2 (09:25→21:37)
[2018-08-17] MEDS: AMOX TR/POT CLAV. 500MG/125MG TABLET PO SCH ×2 (09:26→21:37)
[2018-08-17] MEDS: TORSEMIDE 20 MG TABLET PO SCH ×2 (09:26→14:23)
[2018-08-17] MEDS: ALBUTEROL SULFATE (0.083%) 2.5 MG/3 ML NEB INH PRN (10:53)
[2018-08-17] MEDS: BREO (FLUTICASONE/VILANTEROL) 200MCG/25MCG INHALER INH SCH (10:53)
--- NOTE | 2018-08-17 11:09 | Physician Progress Note ---
Subjective - Date Date of Progress Note: 08/17/18 - Admitting Diagnosis Diagnosis: deconditioning due to syncopal episode, CKD, CHF - Subjective Nursing Care Plan Problem List Activity Intolerance (Swing Bed) Start: 08/13/18 18: 32 Freq: Status: Active Protocol: Created 08/13/18 18:32 [facility]EN[facility] (Rec: 08/13/18 18:32 [facility]ENEA [id number]) Altered Thought Process (Fall Risk) Start: 08/13/18 18: 09 Freq: Status: Active Protocol: Created 08/13/18 18:09 [facility] (Rec: 08/13/18 18:09 [facility] [id number]) Impaired Mobility (Fall Risk) Start: 08/13/18 18: 09 Freq: Status: Active Protocol: Created 08/13/18 18:09 [facility] (Rec: 08/13/18 18:09 [facility] [id number]) Knowledge Deficit (Swing Bed) Start: 08/13/18 18: 32 Freq: Status: Active Protocol: Created 08/13/18 18:32 RENEA (Rec: 08/13/18 18:32 RENEA [id number]) Pain (Swing Bed) Start: 08/13/18 18: 32 Freq: Status: Active Protocol: Created 08/13/18 18:32 [facility]ENEA (Rec: 08/13/18 18:32 RENEA [id number]) Risk for Injury (Fall Risk) Start: 08/13/18 18: 09 Freq: Status: Active Protocol: Created 08/13/18 18:09 [facility] (Rec: 08/13/18 18:09 [facility] [id number]) Subjective: Pt and daughter, who changes BLE bandages daily, reported over the weekend that he was having an increase in LE swelling. Torsemide was increased from 10mg BID to 20mg BID. This morning, pt had BP of 76/47 and pt stated "I always run low, but that is kind of low for me." Pt sitting up in chair during evaluation, eating breakfast. Denied dizziness, lightheaded, nausea, SOB or chest pain. Stated that he didn't feel like he was "full of fluid". Reports that his legs didn't seem any different. Stated "I feel pretty good, I just need to poop as its been 3 days." Had CRRT in hospital. 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 Mcmanus ( secondary english teacher) but is switching to Dr. Barber with [facility]. Has appointment on 08/26/[address] Barber (nephro) and with [facility] and wound clinic both on . - Subjective Detail Respiratory: Denies: Cough, Dyspnea Cardiovascular: Reports: Edema. Denies: Chest pain, Dyspnea on exertion, Palpitations Gastrointestinal: Reports: Constipation (x 3 days). Denies: Nausea, Vomiting Skin: Reports: Lesions (BLE) Neurological: Denies: Confusion, Headache Psychiatric: Denies: Anxiety, Depression General - Communication Select best description of speech pattern: Clear Speech Ability to express ideas and wants: Understood Understanding verbal content: Understands - Physical Functioning Activity Level: Up with assist x1 Turning: With partial assist ROM Ability: Moves all extremities Assistive Devices: Straight Cane, 2 Wheel Walker Ambulation Ability: Needs Assist Bed Mobility: Needs Assist Transfer Ability: Needs Assist Bathing Ability: Needs Assist Personal Hygiene: Independent Dressing Ability: Needs Assist Eating (Feeding) Ability: Independent Toileting Ability: Needs Assist Administer Own Medication: Independent - Continence Bowel Pattern: Constipated Bladder Pattern: Normal Meds/Allergies - Allergies Allergies Allergy/AdvReac Type Severity Reaction Status Date / Time onion Allergy Intermediate NAUSEA Verified 01/30/16 14:13 rivaroxaban [From Xarelto] AdvReac Severe BRUISING Verified 04/10/18 10:00 - Active Medications Current Medications Albuterol Sulfate () 2.5 mg INH RESP.Q4H PRN PRN Reason: DIFFICULTY IN BREATHING Last Admin: 08/17/18 10:53 Dose: 2.5 mg Allopurinol (Zyloprim) 100 mg PO DAILY [facility] Last Admin: 08/17/18 09:25 Dose: 100 mg Amiodarone HCl (Pacerone) 200 mg PO DAILY [facility] Last Admin: 08/17/18 09:25 Dose: 200 mg Amoxicillin/Clavulanate Potassium (Augmentin 500mg/125mg) 1 each PO BID [facility] Stop: 08/17/18 22:01 Last Admin: 08/17/18 09:26 Dose: 1 each Ascorbic Acid (Vitamin C) 1,000 mg PO BID [facility] Last Admin: 08/17/18 09:25 Dose: 1,000 mg Atorvastatin Calcium (Lipitor) 20 mg PO QHS [facility] Last Admin: 08/16/18 21:35 Dose: 20 mg Ferrous Sulfate (Iron) 325 mg PO WMEALS [facility] Last Admin: 08/17/18 08:01 Dose: 325 mg Insulin Detemir (Levemir Flextouch) 10 unit SQ QHS [facility] Last Admin: 08/16/18 21:45 Dose: 10 unit Levothyroxine Sodium (Synthroid) 125 mcg PO DAILYTHY [facility] Last Admin: 08/17/18 06:15 Dose: 125 mcg Magnesium Hydroxide (Milk Of Magnesium) 30 ml PO DAILY PRN PRN Reason: CONSTIPATION Last Admin: 08/17/18 09:24 Dose: 30 ml Magnesium Oxide (Mag Ox) 400 mg PO DAILY [facility] Last Admin: 08/17/18 09:24 Dose: 400 mg Metoprolol Succinate (Toprol Xl) 25 mg PO DAILY [facility] Last Admin: 08/17/18 09:25 Dose: 25 mg Multivitamins/Minerals (Centrum) 1 tab PO DAILY [facility] Last Admin: 08/17/18 09:24 Dose: 1 tab Oxycodone/Acetaminophen (Percocet 10-325 Mg Tablet) 1 each PO Q4H PRN PRN Reason: PAIN - MOD TO SEVERE (5-10) Last Admin: 08/17/18 09:31 Dose: 1 each Polyethylene Glycol (Miralax) 17 gm PO QHS [facility] Last Admin: 08/16/18 21:38 Dose: 17 gm Ranitidine HCl (Zantac) 150 mg PO BID [facility] Last Admin: 08/17/18 09:25 Dose: 150 mg Senna/Docusate Sodium (Senna Plus) 2 each PO QHS [facility] Last Admin: 08/16/18 21:38 Dose: 2 each Tamsulosin HCl (Flomax) 0.4 mg PO QHS [facility] Last Admin: 08/16/18 21:35 Dose: 0.4 mg Torsemide (Torsemide) 20 mg PO BIDDIUR [facility] Last Admin: 08/17/18 09:26 Dose: Not Given Vitamin D (Vitamin D3) 5,000 unit PO DAILY [facility] Last Admin: 08/17/18 09:25 Dose: 5,000 unit Warfarin Sodium (Coumadin) 2 mg PO TuSa [facility] Last Admin: 08/15/18 16:13 Dose: 2 mg Warfarin Sodium (Coumadin) 3 mg PO SuMoWeThFr YAHIR Last Admin: 08/16/18 16:20 Dose: Not Given Objective - Vital Signs Vital Signs: Vital Signs - Last 24 Hrs Temp Pulse Pulse Pulse Resp BP BP 08/17/18 10:55 83 18 08/17/18 09:29 83 95/62 92/59 08/17/18 08:00 96.8 F L 83 16 76/47 08/16/18 20:00 97.3 F L 83 16 93/57 08/16/18 18:00 98.0 F 83 18 85/57 Pulse Ox 08/17/18 10:55 99 08/17/18 09:29 08/17/18 08:00 96 08/16/18 20:00 96 08/16/18 18:00 100 - General General Appearance: Alert, Oriented x3, Cooperative, No acute distress - Head Head exam: Normocephalic - Eye Eye exam: Normal appearance - Neck Neck exam: Normal inspection - Respiratory Respiratory exam: Normal lung sounds bilaterally. negative: Accessory muscle use, Respiratory distress, Rhonchi - Cardiovascular Cardiovascular Exam: Irregular rhythm. negative: Regular rate (Afib), Normal rhythm Peripheral Pulses: 2+: Radial (R), Radial (L) - GI/Abdominal GI/Abdominal exam: Soft, Normal bowel sounds, Hernia - Rectal Rectal exam: Deferred - exam: Deferred - Extremities Extremities exam: Normal capillary refill, Pedal edema - Neurological Neurological exam: Alert, CN II-XII intact, Oriented X3 - Psychiatric Psychiatric exam: Normal affect, Normal mood - Skin Skin exam: Erythema (BLE toes) H&P Results - Labs Result Diagrams: 08/17/18 11:30 Labs Last 24 Hours: Laboratory Results - last 24 hr 08/16/18 08/17/18 22:02 07:30 POC Glucose 151 H 126 H Discharge Potential - Discharge Needs Community Services Used Prior to Admission: Home Health Nurse, IV Therapy, Physical Therapy Patient Discharge Plan Description: Return Home Community Services Needed at Discharge: Home Health Nurse, Occupational Therapy , Physical Therapy Plan - Swing Bed Certification Initial Certification Due: 08/13/18 14 Day Re-Cert Due: 08/27/18 44 Day Re-Cert Due: 09/26/18 74 Day Re-Cert Due: 10/26/18 - Detailed Diagnosis and Plan (1) Physical deconditioning Current Visit: Yes Status: Acute Base Code: R53.81 - OTHER MALAISE Priority: High Comment: 08/17/18: -PT/OT evaluation and treatment. (2) Stage 3 chronic kidney disease Current Visit: Yes Status: Acute Base Code: N18.3 - CHRONIC KIDNEY DISEASE, STAGE 3 (MODERATE) Comment: 08/17/18: -08/13/[address] [facility] discharge: Creat 2.43, GFR 29 -Labs today show slight improvement in kidney function: Creat 2.2, GFR 31 -Torsemide increased from 10mg BID to 20mg BID on 08/15/28 d/t worsening edema -Hold Torsemide today for hypotension (BP 76/47, pt asymptomatic) -May consider restarting Torsemide at 10mg BID if BP will tolerate -Ordered CMP for 08/19/18 -F/u with Nephrology on 08/26. Case management working up getting appointment moved up. (3) Atrial fibrillation Current Visit: Yes Status: Acute Base Code: I48.91 - UNSPECIFIED ATRIAL FIBRILLATION (4) HTN (hypertension) Current Visit: Yes Status: Acute Base Code: I10 - ESSENTIAL (PRIMARY) HYPERTENSION Comment: 08/17/18: -BP 76/47 this a.m. -Discussed case with Dr. Chavez. Hold Metoprolol and Torsemide. Re-evaluate tomorrow to restart. -Vitals q. 2H x 2, then q. 4H (5) Hyperlipidemia Current Visit: Yes Status: Acute Base Code: E78.5 - HYPERLIPIDEMIA, UNSPECIFIED Comment: 08/17/18: -Continue Atorvastatin 20mg daily (6) Antiphospholipid antibody syndrome Current Visit: Yes Status: Acute Base Code: D68.61 - ANTIPHOSPHOLIPID SYNDROME Comment: 08/17/18: -Continue Coumadin 2mg , W, , F, Sun -Continue Coumadin 3 mg , Fri -Ferrous sulfate TID (7) COPD (chronic obstructive pulmonary disease) Current Visit: Yes Status: Acute Base Code: J44.9 - CHRONIC OBSTRUCTIVE PULMONARY DISEASE, UNSPECIFIED Comment: 08/17/18: -Continue Symbicort BID -Continue Albuterol PRN (8) Full code status Current Visit: Yes Status: Acute Base Code: Z78.9 - OTHER SPECIFIED HEALTH STATUS Comment: 08/17/18: FULLL CODE (9) Hypothyroidism Current Visit: Yes Status: Acute Qualifiers: Hypothyroidism type: unspecified Qualified Code(s): E03.9 - Hypothyroidism , unspecified Base Code: E03.9 - HYPOTHYROIDISM, UNSPECIFIED Comment: 08/17/18: -Continue Levothyroxine 125mcg daily (10) CHF (congestive heart failure) Current Visit: Yes Status: Chronic Base Code: I50.9 - HEART FAILURE, UNSPECIFIED Comment: 08/17/18: -Hold Torsemide 20mg BID and Metoprolol 25mg daily, reevaluate tomorrow to restart -If restarting Torsemide tomorrow, consider lowering dose back to 10mg BID -F/u with Chest Painting And Sealing Supervisor on 08/19/18 as scheduled -2L Fluid restriction -Daily Weight -I & O (11) Diabetes Current Visit: Yes Status: Chronic Qualifiers: Diabetes mellitus type: type 2 Diabetes mellitus custodial insulin use: with custodial use Diabetes mellitus complication status: with hyperglycemia Qualified Code(s): E11.65 - Type 2 diabetes mellitus with hyperglycemia; Z79.4 - meterman (current) use of insulin Base Code: E11.9 - TYPE 2 DIABETES MELLITUS WITHOUT COMPLICATIONS Comment: : -Continue Levemir 10 units daily -Accuchecks AC & HS -ADA diet
--- NOTE | 2018-08-17 11:30 | Physical Therapy Tx Note ---
Physical Therapy Tx Note - Treatment Note Tolerated: Fair Total Time Spent With Patient: 20 Physical Therapy Tx Note: Detail (PT treatment was shortened due to the patient declined ambulation stating the patient was constipated and wanted to stay close to the bathroom. The patient completed the following LE strengthening exercises: green band hip abduction, LAQ and hamstring curls x 10 reps, hip marches x 10 reps, ankle pumps and hip adductors until fatigued. The patient continues to complain of groin pain.) Physical Therapy Problem List: Detail (1) Decreased LE strength 2) Decreased ability to complete prolonged phyiscal activity 3) R hip pain which is limiting patient's function) Physical Therapy Goals: 1) Increase LE strength 1/3 muscle to improve the patient's ability to complete functional activities. 2) The patient will ambulate stairs with supervision for safety. 3) The patient will ambulate distances of 300 feet plus with assistive device independently. 4) The patient will tolerate 30 to 45 minutes of physical activity with one rest period. Physical Therapy Plan: PT M-F 1 to 2 times a day for ambulation, LE strengthening exercises, balance exercises and mobility.
[2018-08-17 11:51] LABS: INR 2.6; PROTHROMBIN TIME (PATIENT) 25.1 SECONDS (9.5-12.1)
[2018-08-17 11:53] LABS: CREATININE 2.2 mg/dL (0.7-1.2)
[2018-08-17] MEDS ORDERED: BISACODYL 10 MG SUPP RC ONE (12:03)
--- NOTE | 2018-08-17 14:14 | Physician Addendum ---
Addendum (Physician) 08/17/18 14:12 Pt angry that Torsemide has been held. States "I need my Torsemide"! Pt states "My blood pressure is where it is supposed to be, I can have my diuretic now." Torsemide 10mg x 1 today ordered 08/17/18 14:13
--- NOTE | 2018-08-17 14:16 | US ARTERIAL DOPPLER REPORT ---
EXAM: EMERGENCY ARTERIAL DOPPLER ULTRASOUND OF THE BILATERAL LOWER EXTREMITIES HISTORY: FEET COLD AND PURPLE, FAINT PULSES. BANDAGES APPLIED TO THE LOWER LEGS. TECHNIQUE: Sonographic evaluation of the arterial system of the bilateral lower extremities was performed with the addition of Doppler and spectral analysis. Images were obtained with the vascular probe oriented 60 degrees. Because of the presence of extensive bandages overlying the lower legs, the arterial anatomy cannot be evaluated below the level of the popliteal arteries. A preliminary report was provided by [facility]. Comparison: No prior arterial Doppler ultrasound study of the lower extremities. FINDINGS: 3 Right Waveform Left Waveform Common Femoral Artery 54 cm/s Biphasic 57 cm/s Triphasic Profunda Femoral Artery 33 cm/s Biphasic 35 cm/s Biphasic Proximal Superficial Femoral Artery 46 cm/s Biphasic 40 cm/s Biphasic Mid Superficial Femoral Artery 61 cm/s Biphasic 56 cm/s Biphasic Distal Superficial Femoral Artery 73 cm/s Biphasic 51 cm/s Biphasic Popliteal Artery 30 cm/s Biphasic 34 cm/s Biphasic The washing tub operator notes that because of the extensive bandages, the ankle brachial indices were not obtainable on either lower extremity, and the arterial anatomy could not be evaluated below the level of the popliteal arteries. When the images themselves are viewed, there is some mild scattered calcified plaque seen bilaterally. No high grade stenosis identified on the images. IMPRESSION: 1. LIMITED STUDY BECAUSE BANDAGES APPLIED TO THE LOWER EXTREMITIES WITH THE ARTERIAL ANATOMY NOT EVALUATED BELOW THE LEVEL OF THE POPLITEAL ARTERIES, AND ANKLE BRACHIAL INDICES NOT OBTAINED. 2. PEAK SYSTOLIC VELOCITIES WERE NON-ELEVATED AND FROM THE INGUINAL REGION THROUGH THE POPLITEAL REGION WAVEFORMS WERE ALL BIPHASIC WITH THE EXCEPTION OF THE LEFT COMMON FEMORAL WHICH WAS TRIPHASIC. SOME MILD SCATTERED ATHEROMATOUS PLAQUE SEEN WITH NO HEMODYNAMICALLY SIGNIFICANT STENOSIS EVIDENT IN THE ARTERIES VISUALIZED FROM THE INGUINAL REGION DOWN TO THE KNEE. JOB NUMBER: [id number] [facility]
--- NOTE | 2018-08-17 14:42 | Occupational Therapy Tx Note ---
Occupational Therapy Tx Note - Treatment Note Tolerated: Good Total Time Spent With Patient: 50 (ADL) Occupational Therapy Treatment Note: Detail (S: Pt up in chair, ready for sponge bathing. O: Sit to stand Indly and amb to sink with 2 wheeled walker and SBA. Pt able to doff t-shirt and complete upper body sponge bathing with assist to wash back. He was able to doff sweatpants and boxer shorts with quality controller in standing with SBA. Pt completed bathing of torsten area and buttocks Indly in standing. Pt amb to commode and donned t-shirt, boxers and sweatpants with quality controller Indly with exception of pulling pants over hips in the back. Pt brushed hair Indly. Pt amb to chair with 2 wheeled walker and SBA. Pt left up in chair. A: Pt very fatigued and had mild shortness of breath with ADL activity. He required SBA with mobility due to mild unsteadiness.) Occupational Therapy Problem List: Detail (decreased Ind. w/ ADL's, reduced activity tolerance, decreased BUE strength) Occupational Therapy Goals: 1) Pt. will be modified Ind. with his typical self- care ADL routine. 2) Pt. will be Ind. with BUE HEP with use of handout if needed. Prognosis: Good Occupational Therapy Plan: Provide OT services 2-4x/week Mon-Fri during typical rehab business hours until pt. meets all OT goals and/or is d/c from hospital.
[2018-08-17] MEDS: WARFARIN 1 MG TABLET PO SCH (16:38)
[2018-08-17] MEDS: TAMSULOSIN HCL 0.4 MG CAP.ER.24H PO SCH (21:37)
[2018-08-17] MEDS: ATORVASTATIN 20 MG TABLET PO SCH (21:37)
[2018-08-17] MEDS: SENNOSIDES/DOCUSATE SODIUM UD CAPSULE PO SCH (21:37)
[2018-08-17] MEDS: POLYETHYLENE GLY 17 GM PACKET PO SCH (21:37)
[2018-08-17] MEDS: LEVEMIR FLEXTOUCH 100 UNIT/ML INSULIN PEN SQ SCH (22:10)
[2018-08-18] MEDS: ALBUTEROL SULFATE (0.083%) 2.5 MG/3 ML NEB INH PRN ×3 (00:31→23:55)
[2018-08-18] MEDS: LEVOTHYROXINE SODIUM 125 MCG TABLET PO SCH (06:00)
[2018-08-18] MEDS: FERROUS SULFATE 325 MG TAB PO SCH ×3 (09:02→17:40)
[2018-08-18] MEDS: RANITIDINE HCL 150 MG TABLET PO SCH ×2 (10:07→21:29)
[2018-08-18] MEDS: CHOLECALCIFEROL 1,000 UNIT TABLET PO SCH (10:07)
[2018-08-18] MEDS: MAGNESIUM OXIDE 400 MG TABLET PO SCH (10:08)
[2018-08-18] MEDS: ASCORBIC ACID 500 MG TAB PO SCH ×2 (10:08→21:29)
[2018-08-18] MEDS: AMIODARONE HCL 200 MG TABLET PO SCH (10:08)
[2018-08-18] MEDS: ALLOPURINOL 100 MG TAB PO SCH (10:08)
[2018-08-18] MEDS: TORSEMIDE 20 MG TABLET PO SCH (10:08)
[2018-08-18] MEDS: MULTIVITAMINS/MINERALS TABLET PO SCH (10:08)
[2018-08-18] MEDS: BREO (FLUTICASONE/VILANTEROL) 200MCG/25MCG INHALER INH SCH (10:13)
--- NOTE | 2018-08-18 14:45 | Physical Therapy Tx Note ---
Physical Therapy Tx Note - Treatment Note Tolerated: Fair Total Time Spent With Patient: 20 Physical Therapy Tx Note: Detail (The patient was seen for a car transfer with daughter present. Prior to transfer the patient ambulated to the bathroom independently. The patient exhibited shortness of breath when ambulating out of the bathroom. The patient opted to take the wheelchair to hospital enterance due to fatigue. The patient transferred to truck with for safety use of a 4 inch stool and running board. The patient led with R foot and was cued leading with left foot may be better. The patient was able to get out of truck with supervision for safety. The patient was short of breath during transfer. The patient required moderate PA of 2 with sit to stand from low wheelchair. The patient was fatigued after transfer and refused further activity at that time.) Physical Therapy Problem List: Detail (1) Decreased LE strength 2) Decreased ability to complete prolonged phyiscal activity 3) R hip pain which is limiting patient's function) Physical Therapy Goals: 1) Increase LE strength 1/3 muscle to improve the patient's ability to complete functional activities. 2) The patient will ambulate stairs with supervision for safety. 3) The patient will ambulate distances of 300 feet plus with assistive device independently. 4) The patient will tolerate 30 to 45 minutes of physical activity with one rest period. Physical Therapy Plan: PT M-F 1 to 2 times a day for ambulation, LE strengthening exercises, balance exercises and mobility.
[2018-08-18] MEDS: OXYCODONE/APAP 10MG-325MG TABLET PO PRN (15:31)
--- NOTE | 2018-08-18 15:37 | Occupational Therapy Tx Note ---
Occupational Therapy Tx Note - Treatment Note Tolerated: Good Total Time Spent With Patient: 15 (ther activity) Occupational Therapy Treatment Note: Detail (S: Pt up in bathroom, finishing toileting. O: Pt amb to sink and completed oral hygiene and grooming while standing at sink Indly. Pt amb 130 feet with 2 wheeled walker and several short rest breaks due to pain. Pt mildly short of breath during ambulation. Stand to sit Indly into recliner. A: Ind with grooming/hygiene, pain is limiting activity, decreased endurance continues.) Occupational Therapy Problem List: Detail (decreased Ind. w/ ADL's, reduced activity tolerance, decreased BUE strength) Occupational Therapy Goals: 1) Pt. will be modified Ind. with his typical self- care ADL routine. 2) Pt. will be Ind. with BUE HEP with use of handout if needed. Prognosis: Good Occupational Therapy Plan: Provide OT services 2-4x/week Mon-Fri during typical rehab business hours until pt. meets all OT goals and/or is d/c from hospital.
[2018-08-18] MEDS: WARFARIN 1 MG TABLET PO SCH (17:41)
[2018-08-18] MEDS: SENNOSIDES/DOCUSATE SODIUM UD CAPSULE PO SCH (21:28)
[2018-08-18] MEDS: TAMSULOSIN HCL 0.4 MG CAP.ER.24H PO SCH (21:28)
[2018-08-18] MEDS: ATORVASTATIN 20 MG TABLET PO SCH (21:29)
[2018-08-18] MEDS: POLYETHYLENE GLY 17 GM PACKET PO SCH (21:31)
[2018-08-18] MEDS: LEVEMIR FLEXTOUCH 100 UNIT/ML INSULIN PEN SQ SCH (21:31)
[2018-08-19] MEDS: LEVOTHYROXINE SODIUM 125 MCG TABLET PO SCH (06:07)
[2018-08-19 07:19] LABS: ALB/GLOB RATIO 1.8 (1.1-1.8); ALBUMIN 4.1 g/dL (4.0-5.0); BILIRUBIN,TOTAL 0.9 mg/dL (0.2-1.0); CREATININE 2.1 mg/dL (0.7-1.2); TOTAL PROTEIN 6.4 g/dL (6.6-8.7)
[2018-08-19 08:36] LABS: INR 2.4; PROTHROMBIN TIME (PATIENT) 23.4 SECONDS (9.5-12.1)
[2018-08-19] MEDS: MULTIVITAMINS/MINERALS TABLET PO SCH (09:49)
[2018-08-19] MEDS: AMIODARONE HCL 200 MG TABLET PO SCH (09:49)
[2018-08-19] MEDS: MAGNESIUM OXIDE 400 MG TABLET PO SCH (09:49)
[2018-08-19] MEDS: ASCORBIC ACID 500 MG TAB PO SCH ×2 (09:50→21:47)
[2018-08-19] MEDS: RANITIDINE HCL 150 MG TABLET PO SCH ×2 (09:50→21:48)
[2018-08-19] MEDS: ALLOPURINOL 100 MG TAB PO SCH (09:51)
[2018-08-19] MEDS: CHOLECALCIFEROL 1,000 UNIT TABLET PO SCH (09:51)
[2018-08-19] MEDS: FERROUS SULFATE 325 MG TAB PO SCH ×3 (09:57→17:45)
[2018-08-19] MEDS: OXYCODONE/APAP 10MG-325MG TABLET PO PRN ×3 (10:00→21:57)
[2018-08-19] MEDS: TORSEMIDE 20 MG TABLET PO SCH ×2 (10:02→15:58)
[2018-08-19] MEDS: BREO (FLUTICASONE/VILANTEROL) 200MCG/25MCG INHALER INH SCH (13:39)
[2018-08-19] MEDS: ALBUTEROL SULFATE (0.083%) 2.5 MG/3 ML NEB INH PRN ×2 (13:40→23:00)
[2018-08-19] MEDS: METOPROLOL SUCC 25 MG TAB.ER PO SCH (14:30)
[2018-08-19] MEDS: WARFARIN 1 MG TABLET PO SCH (15:59)
--- NOTE | 2018-08-19 16:59 | Physical Therapy Tx Note ---
Physical Therapy Tx Note - Treatment Note Tolerated: Good Total Time Spent With Patient: 30 Physical Therapy Tx Note: Detail (The patient was up in chair when PT arrived. The patient reported car transfers went well. The patient ambulated 134 feet x 1 with front wheeled walker with supervision for safety. Patient did not exhibit shortness of breath, however R groin pain was increased. The patient completed the following LE exercises: with green T-band hip abduction, hamstring curls, LAQ, and without resistance hip adduction squeezes, hip marches all until fatigued. The patient had increased groin pain following treatment.) Physical Therapy Problem List: Detail (1) Decreased LE strength 2) Decreased ability to complete prolonged phyiscal activity 3) R hip pain which is limiting patient's function) Physical Therapy Goals: 1) Increase LE strength 1/3 muscle to improve the patient's ability to complete functional activities. 2) The patient will ambulate stairs with supervision for safety. 3) The patient will ambulate distances of 300 feet plus with assistive device independently. 4) The patient will tolerate 30 to 45 minutes of physical activity with one rest period. Physical Therapy Plan: PT M-F 1 to 2 times a day for ambulation, LE strengthening exercises, balance exercises and mobility.
[2018-08-19] MEDS: TAMSULOSIN HCL 0.4 MG CAP.ER.24H PO SCH (21:48)
[2018-08-19] MEDS: ATORVASTATIN 20 MG TABLET PO SCH (21:48)
[2018-08-19] MEDS: SENNOSIDES/DOCUSATE SODIUM UD CAPSULE PO SCH (21:48)
[2018-08-19] MEDS: LEVEMIR FLEXTOUCH 100 UNIT/ML INSULIN PEN SQ SCH (21:49)
[2018-08-19] MEDS: POLYETHYLENE GLY 17 GM PACKET PO SCH (21:49)
[2018-08-20] MEDS: LEVOTHYROXINE SODIUM 125 MCG TABLET PO SCH (06:19)
[2018-08-20] MEDS: FERROUS SULFATE 325 MG TAB PO SCH ×3 (08:08→17:34)
[2018-08-20 09:52] LABS: HEMATOCRIT 38.4 % (42.0-52.0); HEMOGLOBIN 12.1 gm/dl (14.0-18.0); MEAN CELL VOLUME 92.3 fl (81-97); MEAN CORPUSCULAR HGB CONC 31.5 g/dl (32-36); MEAN PLATELET VOLUME 11.5 fl (7.4-10.4); PLATELET COUNT 224 K/uL (130-400); RED BLOOD COUNT 4.16 M/uL (4.40-5.70); RED CELL DISTRIBUTION WIDTH 16.3 % (11.5-14.5); WHITE BLOOD COUNT W/O DIFF 8.1 K/uL (4.2-12.2)
[2018-08-20] MEDS: MULTIVITAMINS/MINERALS TABLET PO SCH (09:57)
[2018-08-20] MEDS: TORSEMIDE 20 MG TABLET PO SCH ×2 (09:58→16:33)
[2018-08-20] MEDS: AMIODARONE HCL 200 MG TABLET PO SCH (09:58)
[2018-08-20] MEDS: METOPROLOL SUCC 25 MG TAB.ER PO SCH (09:58)
[2018-08-20] MEDS: MAGNESIUM OXIDE 400 MG TABLET PO SCH (09:58)
[2018-08-20] MEDS: CHOLECALCIFEROL 1,000 UNIT TABLET PO SCH (09:59)
[2018-08-20] MEDS: ASCORBIC ACID 500 MG TAB PO SCH (10:00)
[2018-08-20] MEDS: RANITIDINE HCL 150 MG TABLET PO SCH (10:01)
[2018-08-20] MEDS: ALLOPURINOL 100 MG TAB PO SCH (10:01)
--- NOTE | 2018-08-20 10:01 | Physical Therapy Tx Note ---
Physical Therapy Tx Note - Treatment Note Physical Therapy Tx Note: Detail (Patient refused treatment due to therapist ill.) Physical Therapy Problem List: Detail (1) Decreased LE strength 2) Decreased ability to complete prolonged phyiscal activity 3) R hip pain which is limiting patient's function) Physical Therapy Goals: 1) Increase LE strength 1/3 muscle to improve the patient's ability to complete functional activities. 2) The patient will ambulate stairs with supervision for safety. 3) The patient will ambulate distances of 300 feet plus with assistive device independently. 4) The patient will tolerate 30 to 45 minutes of physical activity with one rest period. Physical Therapy Plan: PT M-F 1 to 2 times a day for ambulation, LE strengthening exercises, balance exercises and mobility.
[2018-08-20 10:02] LABS: BILIRUBIN,TOTAL 0.8 mg/dL (0.2-1.0); CREATININE 1.9 mg/dL (0.7-1.2); TOTAL PROTEIN 6.5 g/dL (6.6-8.7)
[2018-08-20] MEDS: BREO (FLUTICASONE/VILANTEROL) 200MCG/25MCG INHALER INH SCH (10:04)
[2018-08-20] MEDS: ALBUTEROL SULFATE (0.083%) 2.5 MG/3 ML NEB INH PRN (10:04)
[2018-08-20 10:07] LABS: ALB/GLOB RATIO 1.7 (1.1-1.8); ALBUMIN 4.1 g/dL (4.0-5.0)
--- NOTE | 2018-08-20 13:35 | Discharge Summary ---
Providers Discharge Summary Date: 08/20/18 Date of admission: 08/13/18 17:01 Expected Date of Discharge: 08/20/18 Attending physician: SNEHAL VERMA Primary care physician: EWELINA MALIN M.D. Physical Exam - Vital Signs Vital Signs: Vital Signs - Last 24 Hrs Temp Pulse Pulse Resp BP Pulse Ox 08/20/18 10:07 86 16 96 08/20/18 10:04 86 16 96 08/20/18 08:00 97.6 F 84 18 112/70 96 08/19/18 23:02 84 16 96 08/19/18 20:00 97.2 F L 81 18 99/62 98 08/19/18 13:30 86 16 - General General Appearance: Alert, Oriented x3, Cooperative, No acute distress - Head Head exam: Normocephalic - Eye Eye exam: Normal appearance - Neck Neck exam: Normal inspection - Respiratory Respiratory exam: Normal lung sounds bilaterally. negative: Accessory muscle use, Respiratory distress, Rhonchi - Cardiovascular Cardiovascular Exam: Irregular rhythm. negative: Regular rate (Afib), Normal rhythm Peripheral Pulses: 2+: Radial (R), Radial (L) - GI/Abdominal GI/Abdominal exam: Soft, Normal bowel sounds, Hernia - Rectal Rectal exam: Deferred - exam: Deferred - Extremities Extremities exam: Normal capillary refill, Pedal edema - Neurological Neurological exam: Alert, CN II-XII intact, Oriented X3 - Psychiatric Psychiatric exam: Normal affect, Normal mood - Skin Skin exam: Erythema (BLE toes) Hospitalization - Hospitalization Admission Diagnosis: deconditioning due to syncopal episode, CKD, CHF - Problem List (1) Physical deconditioning Current Visit: Yes Status: Acute Base Code: R53.81 - OTHER MALAISE Comment : 08/20/18: -PT/OT evaluation and treatment. (2) Acute worsening of stage 3 chronic kidney disease Current Visit: No Status: Chronic Base Code: N18.3 - CHRONIC KIDNEY DISEASE , STAGE 3 (MODERATE) Comment: Weight gain of 6 pounds since yesterday, per pt. - frequency of urination has decreased. Stat labs ordered: renal function remains at pt's baseline: BUN 77, creat 1.9. Spoke with [facility]- Dr. Kearns- he recommends transfer to [facility] for dialysis and cardiology to manage CHF. Called [facility] admitting, Dr. Bassett to accept admission. - avoid nephrotoxic agents and fluid challenge with caution. (3) Antiphospholipid antibody syndrome Current Visit: Yes Status: Acute Base Code: D68.61 - ANTIPHOSPHOLIPID SYNDROME Comment: 08/20/18: -Continue Coumadin 2mg M, W, Th, F, Sun -Continue Coumadin 3 mg , Sat -Ferrous sulfate TID (4) Atrial fibrillation Current Visit: Yes Status: Acute Base Code: I48.91 - UNSPECIFIED ATRIAL FIBRILLATION Comment: 08/20/18: -Continue Amiodarone 200mg q.am -Has AICD/PPM -On Coumadin for antiphospholipid syndrome (5) COPD (chronic obstructive pulmonary disease) Current Visit: Yes Status: Acute Base Code: J44.9 - CHRONIC OBSTRUCTIVE PULMONARY DISEASE, UNSPECIFIED Comment: 08/20/18: -Continue Symbicort BID -Continue Albuterol PRN (6) HTN (hypertension) Current Visit: Yes Status: Acute Base Code: I10 - ESSENTIAL (PRIMARY) HYPERTENSION Comment: 08/20/18: -Holding metoprolol 25mg daily- BP 70s/30s -Vitals q. 2H x 2, then q. 4H (7) Hyperlipidemia Current Visit: Yes Status: Acute Base Code: E78.5 - HYPERLIPIDEMIA, UNSPECIFIED Comment: 08/20/18: -Continue Atorvastatin 20mg daily (8) Hypothyroidism Current Visit: Yes Status: Acute Discharge Diagnosis: Hypothyroidism type: unspecified Qualified Code(s): E03.9 - Hypothyroidism , unspecified Base Code: E03.9 - HYPOTHYROIDISM, UNSPECIFIED Comment: 08/20/18: -Continue Levothyroxine 125mcg daily (9) Diabetes Current Visit: Yes Status: Chronic Discharge Diagnosis: Diabetes mellitus type: type 2 Diabetes mellitus rn long term care insulin use: with rn long term care use Diabetes mellitus complication status: with hyperglycemia Qualified Code(s): E11.65 - Type 2 diabetes mellitus with hyperglycemia; Z79.4 - penitentiary (current) use of insulin Base Code: E11.9 - TYPE 2 DIABETES MELLITUS WITHOUT COMPLICATIONS Comment: : -Continue Levemir 10 units daily -Accuchecks AC & HS -ADA diet (10) CHF (congestive heart failure) Current Visit: Yes Status: Chronic Base Code: I50.9 - HEART FAILURE, UNSPECIFIED Comment: 08/20/18: -6 pound weight gain since yesterday -Torsemide 10mg BID, holding metoprolol 25mg daily due to low bp -2L Fluid restriction -Daily Weight -I & O (11) Full code status Current Visit: Yes Status: Acute Base Code: Z78.9 - OTHER SPECIFIED HEALTH STATUS Comment: 08/20/18: FULLL CODE - Hospitalization Course Disposition: Acute Care Hospital Transfer Reason For Discharge/Transfer: Patient's care needs cannot be met at [facility] Hospital Course: 08/13/18: William Pichardo is a 78 y.o. male who admits for deconditioning after an extended hospitalization at [facility]. He was admitted to [facility] from 07/30/18 to 08/13/2018 after an unwitnessed syncopal episode in his home. Extensive PMHx includes hypothyroidism, CHF, DM II, CKD, Chronic back pain with infusion pain pump, afib, cardiac arrest x 2 with AICD implant, DVT and antiphospholipid syndrome on coumadin. Upon arrival to ED, pt presented with significant LE edema, JOAN and rate controlled Afib. A full workup was done while hospitalized. He was diagnosed with a CHF and COPD exacerbation. Today, pt states that he is feeling well and is glad to be out of that hospital. Staff reports concerns of purple-discolored toes however pt states that there is no pain, numbness or tingling. Reports tolerable pain in his right flank and abdomen as well as left hip. States that he had a "good" bowel movement prior to leaving [facility] this afternoon. States that bowels are managed well with stool softeners. 08/17/18: Pt and daughter, who changes BLE bandages daily, reported over the weekend that he was having an increase in LE swelling. Torsemide was increased from 10mg BID to 20mg BID. This morning, pt had BP of 76/47 and pt stated "I always run low, but that is kind of low for me." Pt sitting up in chair during evaluation, eating breakfast. Denied dizziness, lightheaded, nausea, SOB or chest pain. Stated that he didn't feel like he was "full of fluid". Reports that his legs didn't seem any different. Stated "I feel pretty good, I just need to poop as its been 3 days." Had CRRT in hospital. 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 Barebr with [facility]. Has appointment on 08/26/[address] Barber (nephro) and with [facility] and wound clinic both on . 08/20/18: Weight gain of 6 pounds since yesterday, per pt.- frequency of urination has decreased. Stat labs ordered: renal function remains at pt's baseline: BUN 77 , creat 1.9. Spoke with [facility]- Dr. Kearns- he recommends transfer to [facility] for dialysis and cardiology to manage CHF. Called [facility] admitting, Dr. Bassett to accept admission. Procedures: Imaging and X-Rays 08/14/18 13:57 ARTERIAL DOPPLER LOWER EXT LANA [US] Stat Abnormal Labs: Abnormal Lab Results 08/13/18 08/13/18 08/14/18 Range/Units 17:00 22:14 11:30 RBC (4.40-5.70) M/uL Hgb (14.0-18.0) gm/dl Hct (42.0-52.0) % MCHC (32-36) g/dl RDW (11.5-14.5) % MPV (7.4-10.4) fl Neutrophils % (47-80) % Lymphocytes (16-45) % PT (9.5-12.1) SECONDS Sodium (136-145) mmol/L Potassium (3.4-4.5) mmol/L Chloride (98-107) mmol/L Carbon Dioxide (22-29) mmol/L BUN (8-23) mg/dL Creatinine (0.7-1.2) mg/dL POC Glucose 193 H 218 H 123 H (70-110) mg/dL Random Glucose (74-109) mg/dL ALT (<41) U/L NT-Pro-B Natriuret Pep (<450) pg/mL Total Protein (6.6-8.7) g/dL 08/14/18 08/14/18 08/15/18 Range/Units 17:00 22:22 10:00 RBC (4.40-5.70) M/uL Hgb (14.0-18.0) gm/dl Hct (42.0-52.0) % MCHC (32-36) g/dl RDW (11.5-14.5) % MPV (7.4-10.4) fl Neutrophils % (47-80) % Lymphocytes (16-45) % PT (9.5-12.1) SECONDS Sodium (136-145) mmol/L Potassium (3.4-4.5) mmol/L Chloride (98-107) mmol/L Carbon Dioxide (22-29) mmol/L BUN (8-23) mg/dL Creatinine (0.7-1.2) mg/dL POC Glucose 136 H 141 H 140 H (70-110) mg/dL Random Glucose (74-109) mg/dL ALT (<41) U/L NT-Pro-B Natriuret Pep (<450) pg/mL Total Protein (6.6-8.7) g/dL 08/15/18 08/15/18 08/16/18 Range/Units 10: 22:13 22:02 RBC (4.40-5.70) M/uL Hgb (14.0-18.0) gm/dl Hct (42.0-52.0) % MCHC (32-36) g/dl RDW (11.5-14.5) % MPV (7.4-10.4) fl Neutrophils % (47-80) % Lymphocytes (16-45) % PT 28.8 H (9.5-12.1) SECONDS Sodium (136-145) mmol/L Potassium (3.4-4.5) mmol/L Chloride (98-107) mmol/L Carbon Dioxide (22-29) mmol/L BUN (8-23) mg/dL Creatinine (0.7-1.2) mg/dL POC Glucose 179 H 151 H (70-110) mg/dL Random Glucose (74-109) mg/dL ALT (<41) U/L NT-Pro-B Natriuret Pep (<450) pg/mL Total Protein (6.6-8.7) g/dL 08/17/18 08/17/18 08/17/18 Range/Units 07:30 11:30 11:30 RBC (4.40-5.70) M/uL Hgb (14.0-18.0) gm/dl Hct (42.0-52.0) % MCHC (32-36) g/dl RDW (11.5-14.5) % MPV (7.4-10.4) fl Neutrophils % (47-80) % Lymphocytes (16-45) % PT 25.1 H (9.5-12.1) SECONDS Sodium (136-145) mmol/L Potassium (3.4-4.5) mmol/L Chloride 90 L (98-107) mmol/L Carbon Dioxide 33.0 H (22-29) mmol/L BUN 91 H (8-23) mg/dL Creatinine 2.2 H (0.7-1.2) mg/dL POC Glucose 126 H (70-110) mg/dL Random Glucose 125 H (74-109) mg/dL ALT (<41) U/L NT-Pro-B Natriuret Pep (<450) pg/mL Total Protein (6.6-8.7) g/dL 08/17/18 08/17/18 08/18/18 Range/Units 17:00 22:00 07:30 RBC (4.40-5.70) M/uL Hgb (14.0-18.0) gm/dl Hct (42.0-52.0) % MCHC (32-36) g/dl RDW (11.5-14.5) % MPV (7.4-10.4) fl Neutrophils % (47-80) % Lymphocytes (16-45) % PT (9.5-12.1) SECONDS Sodium (136-145) mmol/L Potassium (3.4-4.5) mmol/L Chloride (98-107) mmol/L Carbon Dioxide (22-29) mmol/L BUN (8-23) mg/dL Creatinine (0.7-1.2) mg/dL POC Glucose 149 H 201 H 128 H (70-110) mg/dL Random Glucose (74-109) mg/dL ALT (<41) U/L NT-Pro-B Natriuret Pep (<450) pg/mL Total Protein (6.6-8.7) g/dL 08/18/18 08/19/18 08/19/18 Range/Units 22:00 06:55 06:55 RBC (4.40-5.70) M/uL Hgb (14.0-18.0) gm/dl Hct (42.0-52.0) % MCHC (32-36) g/dl RDW (11.5-14.5) % MPV (7.4-10.4) fl Neutrophils % (47-80) % Lymphocytes (16-45) % PT 23.4 H (9.5-12.1) SECONDS Sodium 134 L (136-145) mmol/L Potassium (3.4-4.5) mmol/L Chloride 91 L (98-107) mmol/L Carbon Dioxide 32.0 H (22-29) mmol/L BUN 86 H (8-23) mg/dL Creatinine 2.1 H (0.7-1.2) mg/dL POC Glucose 183 H (70-110) mg/dL Random Glucose 119 H (74-109) mg/dL ALT 51 H (<41) U/L NT-Pro-B Natriuret Pep (<450) pg/mL Total Protein 6.4 L (6.6-8.7) g/dL 08/19/18 08/20/18 08/20/18 Range/Units 21:57 09:48 09:48 RBC 4.16 L (4.40-5.70) M/uL Hgb 12.1 L (14.0-18.0) gm/dl Hct 38.4 L (42.0-52.0) % MCHC 31.5 L (32-36) g/dl RDW 16.3 H (11.5-14.5) % MPV 11.5 H (7.4-10.4) fl Neutrophils % 85.0 H (47-80) % Lymphocytes 12.0 L (16-45) % PT (9.5-12.1) SECONDS Sodium 134 L (136-145) mmol/L Potassium 4.7 H (3.4-4.5) mmol/L Chloride 91 L (98-107) mmol/L Carbon Dioxide 32.0 H (22-29) mmol/L BUN 77 H (8-23) mg/dL Creatinine 1.9 H (0.7-1.2) mg/dL POC Glucose 217 H (70-110) mg/dL Random Glucose 142 H (74-109) mg/dL ALT 53 H (<41) U/L NT-Pro-B Natriuret Pep 6473.00 H (<450) pg/mL Total Protein 6.5 L (6.6-8.7) g/dL 08/20/18 Range/Units 11:15 RBC (4.40-5.70) M/uL Hgb (14.0-18.0) gm/dl Hct (42.0-52.0) % MCHC (32-36) g/dl RDW (11.5-14.5) % MPV (7.4-10.4) fl Neutrophils % (47-80) % Lymphocytes (16-45) % PT (9.5-12.1) SECONDS Sodium (136-145) mmol/L Potassium (3.4-4.5) mmol/L Chloride (98-107) mmol/L Carbon Dioxide (22-29) mmol/L BUN (8-23) mg/dL Creatinine (0.7-1.2) mg/dL POC Glucose 115 H (70-110) mg/dL Random Glucose (74-109) mg/dL ALT (<41) U/L NT-Pro-B Natriuret Pep (<450) pg/mL Total Protein (6.6-8.7) g/dL Condition at Discharge: (2) Stable Discharge Medications - Discharge Medications Home Medications: Ambulatory Orders Ascorbic Acid [Vitamin C] 1,000 mg PO BID 11/02/16 [Last Taken 04/14/17] Ferrous Sulfate 325 mg PO DAILY 11/02/16 [Last Taken 04/14/17] Hydromorphone HCl [Dilaudid] 1 mg PO CONT 11/02/16 [Last Taken 04/15/17] Insulin Detemir [Levemir] 6 unit SQ QHS 11/02/16 [Last Taken 04/14/17] Multivit-Min/FA/Lycopen/Lutein [Centrum Silver Tablet] 1 each PO DAILY 11/02/16 [Last Taken 04/14/17] Oxycodone HCl/Acetaminophen [Percocet 10mg/325mg] 1 - 2 tab PO Q4H PRN 11/02/16 [Last Taken 04/14/17] Tamsulosin HCl [Flomax] 0.4 mg PO DAILY 11/02/16 [Last Taken 04/14/17] Warfarin Sodium [Coumadin] 3 mg PO DAILY 11/02/16 [Last Taken 09/03/17 17:00] Cholecalciferol (Vitamin D3) [Vitamin D3] 5,000 unit PO DAILY 02/25/17 [Last Taken 04/14/17] Clotrimazole/Betamethasone Dip [Clotrimazole-Betamethasone Crm] 15 gm TP BID [Last Taken 04/14/17] Levalbuterol Tartrate [Xopenex Hfa] 2 puff INH RESP.Q6H PRN 02/25/17 [Last Taken 04/14/17] Sennosides/Docusate Sodium [Senna-Docusate Sodium Tablet] 2 each PO QHS [Last Taken 04/14/17] Fluticasone/Salmeterol [Advair 250-50 Diskus] 1 each IH BID 09/07/17 [Last Taken Unknown] Bumetanide [Bumex] 2 mg PO BIDDIUR tablet 09/22/17 [Last Taken Unknown] Levothyroxine Sodium [Synthroid] 125 mcg PO DAILYTHY tablet 09/22/17 [Last Taken Unknown] Oxycodone HCl/Acetaminophen [Percocet 10mg/325mg] 1 each PO Q4H PRN tablet [Last Taken Unknown] Oxycodone HCl/Acetaminophen [Percocet 5mg/325mg] 1 udtab PO Q6H PRN tablet [Last Taken Unknown] Atorvastatin Calcium 20 mg PO DAILY #30 tablet 11/13/17 [Last Taken Unknown] Magnesium 400 mg PO DAILY #0 11/13/17 [Last Taken 04/14/17] Metolazone [Zaroxolyn] 2.5 mg PO DAILY #30 tablet 11/13/17 [Last Taken Unknown] Metoprolol Succinate [Toprol Xl] 12.5 mg PO DAILY #30 tab.er.24h 11/13/17 [Last Taken Unknown] Potassium Chloride [Klor-Con] 40 meq PO TIDAC #180 tablet.sa 11/13/17 [Last Taken Unknown] Bifidobacterium Infantis [Align] 4 mg PO DAILY #30 capsule 01/19/18 [Last Taken Unknown] Albuterol Sulfate [Ventolin Hfa] 2 puff INH Q4H PRN inhaler 03/07/18 [Last Taken Unknown] Amiodarone HCl [Pacerone] 200 mg PO DAILY tablet 03/07/18 [Last Taken Unknown] Ascorbic Acid [Vitamin C] 1,000 mg PO BID tab 03/07/18 [Last Taken Unknown] Ferrous Sulfate [Iron] 325 mg PO WMEALS tablet 03/07/18 [Last Taken Unknown] Fluticasone/Vilanterol 200/25 [Breo Ellipta 200-25 Mcg INH] 1 puff INH DAILY inhaler 03/07/18 [Last Taken Unknown] Insulin Detemir [Levemir Flextouch] 6 unit SQ QHS syringe 03/07/18 [Last Taken Unknown] Levothyroxine Sodium [Synthroid] 150 mcg PO DAILYTHY tab 03/07/18 [Last Taken Unknown] Magnesium Oxide [Mag Ox] 400 mg PO BID tab 03/07/18 [Last Taken Unknown] Metolazone [Zaroxolyn] 2.5 mg PO TuSa tablet 03/07/18 [Last Taken Unknown] Metoprolol Succinate [Toprol Xl] 12.5 mg PO DAILY tab.er.24h 03/07/18 [Last Taken Unknown] Multivitamin/Iron/Folic Acid [Centrum] 1 tab PO DAILY tablet 03/07/18 [Last Taken Unknown] Ondansetron [Zofran Odt] 4 mg SL Q6H PRN tab.rapdis 03/07/18 [Last Taken Unknown] Oxycodone HCl/Acetaminophen [Percocet 10mg/325mg] 1 each PO Q6H PRN tablet 03/20 [Last Taken Unknown] Oxycodone HCl/Acetaminophen [Percocet 10mg/325mg] 2 each PO Q6H PRN tablet 03/20 [Last Taken Unknown] Polyethylene Glycol 3350 [Miralax] 17 gm PO QHS packet 03/07/18 [Last Taken Unknown] Potassium Chloride [Klor-Con] 40 meq PO BID tablet.sa 03/07/18 [Last Taken Unknown] Sennosides/Docusate Sodium [Senna Plus] 2 each PO QHS capsule 03/07/18 [Last Taken Unknown] Tamsulosin HCl [Flomax] 0.4 mg PO QHS cap.er.24h 03/07/18 [Last Taken Unknown] Torsemide 20 mg PO [id number] tablet 03/07/18 [Last Taken Unknown] Torsemide 40 mg PO DAILY tablet 03/07/18 [Last Taken Unknown] Warfarin Sodium [Coumadin] 2 mg PO SuMoWeThFr tablet 03/07/18 [Last Taken Unknown] Warfarin Sodium [Coumadin] 3 mg PO TuSa tablet 03/07/18 [Last Taken Unknown] Albuterol Sulfate 0.083% [Neb] 2.5 mg INH RESP.Q4H PRN nebulization solution [Last Taken Unknown] Allopurinol [Zyloprim] 100 mg PO DAILY tablet 08/20/18 [Last Taken Unknown] Amiodarone HCl [Pacerone] 200 mg PO DAILY tablet 08/20/18 [Last Taken Unknown] Ascorbic Acid [Vitamin C] 1,000 mg PO BID tab 08/20/18 [Last Taken Unknown] Ferrous Sulfate [Iron] 325 mg PO WMEALS tablet 08/20/18 [Last Taken Unknown] Fluticasone/Vilanterol 200/25 [Breo Ellipta 200-25 Mcg INH] 1 puff INH DAILY inhaler 08/20/18 [Last Taken Unknown] Insulin Detemir [Levemir Flextouch] 10 unit SQ QHS syringe 08/20/18 [Last Taken Unknown] Levothyroxine Sodium [Synthroid] 125 mcg PO DAILYTHY tablet 08/20/18 [Last Taken Unknown] Magnesium Oxide [Mag Ox] 400 mg PO DAILY tab 08/20/18 [Last Taken Unknown] Metoprolol Succinate [Toprol Xl] 25 mg PO DAILY tab.er.24h 08/20/18 [Last Taken Unknown] Multivitamin/Iron/Folic Acid [Centrum] 1 tab PO DAILY tablet 08/20/18 [Last Taken Unknown] Oxycodone HCl/Acetaminophen [Percocet 10mg/325mg] 1 each PO Q4H PRN tablet [Last Taken Unknown] Polyethylene Glycol 3350 [Miralax] 17 gm PO QHS packet 08/20/18 [Last Taken Unknown] Ranitidine HCl [Zantac] 150 mg PO BID tablet 08/20/18 [Last Taken Unknown] Sennosides/Docusate Sodium [Senna Plus] 2 each PO QHS capsule 08/20/18 [Last Taken Unknown] Tamsulosin HCl [Flomax] 0.4 mg PO QHS cap.er.24h 08/20/18 [Last Taken Unknown] Torsemide 10 mg PO BIDDIUR tablet 08/20/18 [Last Taken Unknown] Warfarin Sodium [Coumadin] 2 mg PO TuSa tablet 08/20/18 [Last Taken Unknown] Warfarin Sodium [Coumadin] 3 mg PO SuMoWeThFr tablet 08/20/18 [Last Taken Unknown] Discharge Plan - Discharge Instructions Activity at Discharge: As Per Physical Therapy Diet at Discharge: Diabetic Diet, Low Salt Diet Quality Measures - Quality Measures Quality Measures: Atrial Fibrillation & Atrial Flutter: Chronic Anticoagulation Therapy, Advance Directives, Documentation of Current Medications in Medical Record, Elder Maltreatment Screen and Follow-Up Plan, Heart Failure, Screening for High Blood Pressure and F/U Documented - Current Medications Quality Measure: Measure #130: Documentation of Current Medications Documentation of Current Medications: <Current Medications Documented/Reviewed> [G8427] - Blood Pressure Screening Quality Measure: Screening for High Blood Pressure and Follow-Up Documented Does Patient Have Any of the Following: Active Dx of HTN Blood Pressure Classification: Normal BP Reading Systolic Measurement: 95 Diastolic Measurement: 62 Screening for High Blood Pressure: Patient Exclusion, Hx of HTN [G9744] - Atrial Fibrillation and Atrial Flutter Quality Measure: Atrial Fibrillation & Atrial Flutter: Chronic Anticoagulation Therapy Does Patient Have Any of the Following: Mitral Stenosis CHADS2 Risk Stratification: Age 75 or Greater, Hypertension, Diabetes Mellitus, Heart Failure or Impaired LVSF Risk Stratification Summary: One or more high risk factors OR more than one moderate risk factor exists. [G8972] Anticoagulation Therapy: Patient Exclusion [G9746] - Heart Failure (MARLENY/ARB Therapy) Quality Measure: Heart Failure Left Ventricular Systolic Function: Unknown MARLENY Inhibitor or ARB Therapy for LVSD: Not Eligible - Heart Failure (Beta-shreyas Therapy) Quality Measure: Heart Failure Left Ventricular Systolic Function: Unknown Beta-Shreyas Therapy for LVEF < 40%: Not Eligible - Advance Directives Quality Measure: Measure #47: Care Plan Advance Directives Established: Yes Advance Directives Information Provided To Patient: Already Provided Advance Directives on File: No Living Will: Yes Power of Ios Programmer: Yes Power of Ios Programmer Name: Emelyn Pichardo Advance Care Planning: <Care Plan/Decision Maker Documented; Discussed & Documented> [[id number]] - Elder Abuse Suspicion Index Screening: Elder Abuse Suspicion Index Screening Rely on people for bathing, dressing, shopping, banking, etc: No Prevented from getting food, clothes, medication, etc: No Made to feel shamed or threatened by someone: No Forced to sign papers or use money against will: No Feel afraid, touched in ways not wanted or hurt physically: No Poor eye contact, withdrawn, malnourished, cuts or bruises: No Screening Result: Negative result EASI Reference Information: Tony MAE, Johnnie C, Sonam D, Nely Ford.Development and validation of a tool to assist physicians identification of elder abuse: The Elder Abuse Suspicion Index (EASI ). Journal of Elder Abuse and Neglect, 2008; 20 (3): 276-300. - Elder Maltreatment Screen Quality Measures: Elder Maltreatment Screen and Follow-Up Plan Elder Maltreatment Screen: <Negative, No Follow-Up Plan Required> [E6255]
--- NOTE | 2018-08-20 14:28 | Physical Therapy Tx Note ---
Physical Therapy Tx Note - Treatment Note Tolerated: Other Total Time Spent With Patient: 25 Physical Therapy Tx Note: Detail (Pt up in chair upon arrival, reporting feeling shortness of breath, not putting out urine. Expects to be transferred to [facility] as soon as bed is available. Appears uncomfortable, declined any activity, but conversant. Left w/nrsg present to do bladder scan.) Physical Therapy Problem List: Detail (1) Decreased LE strength 2) Decreased ability to complete prolonged phyiscal activity 3) R hip pain which is limiting patient's function) Physical Therapy Goals: 1) Increase LE strength 1/3 muscle to improve the patient's ability to complete functional activities. 2) The patient will ambulate stairs with supervision for safety. 3) The patient will ambulate distances of 300 feet plus with assistive device independently. 4) The patient will tolerate 30 to 45 minutes of physical activity with one rest period. Physical Therapy Plan: PT M-F 1 to 2 times a day for ambulation, LE strengthening exercises, balance exercises and mobility.
[2018-08-20] MEDS: WARFARIN 1 MG TABLET PO SCH (16:32)
[2018-08-20] MEDS: OXYCODONE/APAP 10MG-325MG TABLET PO PRN (16:33)
--- NOTE | 2018-08-21 10:34 | Rehab Discharge Summary ---
Patient Information - Patient Information Diagnosis: Deconditioning d/t syncopal fall Ordered Treatment: OT Evaluate and Treat Past Medical/Surgical Hx: PAST MEDICAL/SURGICAL HISTORY Past Surgical History multiple back injs rhizos etc pump trial with dilaudid implanted cath ( permanent device in place) Back surgery X5, neck surgery, Hip & shoulder sx ,Bunionectomy,bilat right hip replacement, AICD , abscess rt thigh, septic hip, hematoma rt thigh , revision x2, evac of hematoma post rt hip; lumbar rhizotomy 05/31/15. permanent pain pump 2015 C2-3 lminectomy 09/19 rt hip arthroplasty 01/18 PMH - Respiratory Hx Respiratory Disorders Yes Hx Asthma Yes Hx Bronchitis No Hx Chronic Obstructive Yes Pulmonary Disease (COPD) Hx Dyspnea Yes: "very slight" Hx Pneumonia Yes: 1989, 2016 Hx Pulmonary Embolism No Hx Sleep Apnea No Hx Tuberculosis No Hx of CPAP No Hx of SOB Yes: CHF PMH - Cardiovascular Hx Cardiovascular Disorders Yes Hx Abnormal EKG Yes: NSR now Hx Cardiac Catheterization No Hx Chest Pain No Hx Congestive Heart Failure Yes Hx Deep Vein Thrombosis Yes: none since 01/2017 Hx Edema Yes: bilat legs recent hospitalization Hx Heart Attack No Hx Hypertension Yes Hx Irregular Heartbeat Yes: hx a fib had cardioversion 1990 & 01/2017 Hx Palpitations No Hx Pacemaker/Defibrillator Yes: 2014 Hx Vascular Disease Yes Hx Transient Ischemic Attacks No (TIA) Comment: hospitalizations states cardiac arrest during past hospitalization 07/18 PMH - Neuro Hx Neurological Disorders Yes Hx Brain Tumor No Hx Cerebrovascular Accident No Hx Dementia No Hx Dizziness No Hx Headaches No Hx Neuropathy Yes Hx Parkinson's Disease No Hx Seizures No: denies Hx Speech Problem No Hx Syncope No Hx Transient Ischemic Attacks No (TIA) Hx Weakness Yes: rt hip weak PMH - GI Hx Gastrointestinal Disorders No Hx Abdominal Pain No Hx Celiac Disease No Hx Crohn's Disease No Hx Diverticulitis No Hx Gastrointestinal Bleed No Hx Gastroesophageal Reflux No: denies reflux on Zantac Hx Hepatitis/Jaundice No Hx Hiatal Hernia No Hx Irritable Bowel No Hx Liver Disease No Hx Nausea/Vomiting No Hx Obstructive Bowel No Hx Pancreatitis No Hx Rectal Bleeding No Hx Ulcer No Hx Weight Loss/Weight Gain No PMH - Hx Genitourinary Disorders Yes Hx Bladder Problem No Hx Kidney Stones No Hx Prostate Problems No: pt states no but on flomax Hx Renal Disease Yes: functioning ok per renal DR Hx Urinary Tract Infection No PMH - Endocrine Hx Endocrine Disorders Yes Hx Diabetes Yes Hx Thyroid Disease No Hx of NIDDM Yes Hx of IDDM Yes Comment: Last accu 147 today PMH - Musculoskeletal Hx Musculoskeletal Disorders Yes Hx Arthritis Yes Hx Back Injury Yes Hx Fibromyalgia No Hx Gout No Hx Musculoskeletal Disease Yes Hx Osteoporosis No Comment: chronic pain; hx septic hip in past PMH - Psych Hx Psychiatric Problems No Hx Anxiety No Hx Behavior Problems No Hx Depression No Hx Emotional Abuse No Hx Sexual Abuse No Hx Suicide Attempt No PMH - Hematology/Oncology Hx Hematology/Oncology Yes Disorders Hx Anemia Yes Hx Blood Disorders No Hx Bruising Yes Hx Cancer Yes: skin Hx Clotting Problems Yes Hx Sickle Cell Disease No Hx Unexplained Bleeding No Hx Blood Transfusion Reaction No Comment: pt to bridge with Lovenox 4 days preop Premorbid Status: Detail (Pt. fell on 07/30/18 and was admitted to [facility], d/c on 08/13/18. Daughter stated pt. has L1 fracture. Pt. was at [facility] February 22 d/t hip dislocation. Pt. reported being Ind. with self-care and household responsibilities with some assistance from daughter, such as donning socks and compression garments (dtr stated she checks his wounds/skin daily).) Social History: Detail (Lives alone in 1 story house with 3 step entry and 1 railing. Bathroom has a walk-in shower (and pt typically stands) with grab bar and HH shower head; elevated toilet seat with grab bars. Pt. has a 2 wheeled walker but dislikes using it, a standard cane, multiple reachers, sock aid ( doesn't use), and velcro shoes.) Precautions: [place], Fall Objective Data - Pain Pain Present: Yes - Mental Status Patient Orientation: Oriented x3 - Visual Perception Appears within normal limits for therapeutic activities - ROM Not within normal limits (unchanged from initial evaluation) - Strength/Tone Not within normal limits (unchanged from initial evaluation) - Coordination Appears within normal limits for therapeutic activities - Transfers Independent (Ind with sit to stand) - Balance Balance Sitting: Good Balance Standing: Fair - Sensation Intact - Gait Detail (Pt ambulating in room and hallway with 2 wheeled walker, he was mildly short of breath with ambulation) - ADL's/IADL's Detail (Pt able to completed sponge bathing, dressing, grooming/hygiene with min /SBA while standing at sink and sitting on commode. Pt has decreased tolerance to activity.) Therapy Assessment - Therapy Assessment Detail (Pt was able to complete self cares with min assist, activity tolerance and pain were impaired.) Problem List - Problem List Physical Therapy Problem List: Detail (1) Decreased LE strength 2) Decreased ability to complete prolonged phyiscal activity 3) R hip pain which is limiting patient's function) Occupational Therapy Problem List: Detail (decreased Ind. w/ ADL's, reduced activity tolerance, decreased BUE strength) Goals - Goals Physical Therapy Goals: 1) Increase LE strength 1/3 muscle to improve the patient's ability to complete functional activities. 2) The patient will ambulate stairs with supervision for safety. 3) The patient will ambulate distances of 300 feet plus with assistive device independently. 4) The patient will tolerate 30 to 45 minutes of physical activity with one rest period. Occupational Therapy Goals: Goals not met: 1) Pt. will be modified Ind. with his typical self-care ADL routine. 2) Pt. will be Ind. with BUE HEP with use of handout if needed. Prognosis - Prognosis Moderate Plan - Plan Physical Therapy Plan: PT M-F 1 to 2 times a day for ambulation, LE strengthening exercises, balance exercises and mobility. Occupational Therapy Plan: Pt discharged to [facility] due to declining medical status.
--- NOTE | 2018-08-21 10:40 | Rehab Discharge Summary ---
Patient Information - Patient Information Diagnosis: Deconditioning d/t syncopal fall Ordered Treatment: PT Evaluate and Treat Past Medical/Surgical Hx: PAST MEDICAL/SURGICAL HISTORY Past Surgical History multiple back injs rhizos etc pump trial with dilaudid implanted cath ( permanent device in place) Back surgery X5, neck surgery, Hip & shoulder sx ,Bunionectomy,bilat right hip replacement, AICD , abscess rt thigh, septic hip, hematoma rt thigh , revision x2, evac of hematoma post rt hip; lumbar rhizotomy 05/31/15. permanent pain pump 2015 C2-3 lminectomy 09/19 rt hip arthroplasty 01/18 PMH - Respiratory Hx Respiratory Disorders Yes Hx Asthma Yes Hx Bronchitis No Hx Chronic Obstructive Yes Pulmonary Disease (COPD) Hx Dyspnea Yes: "very slight" Hx Pneumonia Yes: 1989, 2016 Hx Pulmonary Embolism No Hx Sleep Apnea No Hx Tuberculosis No Hx of CPAP No Hx of SOB Yes: CHF PMH - Cardiovascular Hx Cardiovascular Disorders Yes Hx Abnormal EKG Yes: NSR now Hx Cardiac Catheterization No Hx Chest Pain No Hx Congestive Heart Failure Yes Hx Deep Vein Thrombosis Yes: none since 01/2017 Hx Edema Yes: bilat legs recent hospitalization Hx Heart Attack No Hx Hypertension Yes Hx Irregular Heartbeat Yes: hx a fib had cardioversion 1990 & 01/2017 Hx Palpitations No Hx Pacemaker/Defibrillator Yes: 2014 Hx Vascular Disease Yes Hx Transient Ischemic Attacks No (TIA) Comment: hospitalizations states cardiac arrest during past hospitalization 07/18 PMH - Neuro Hx Neurological Disorders Yes Hx Brain Tumor No Hx Cerebrovascular Accident No Hx Dementia No Hx Dizziness No Hx Headaches No Hx Neuropathy Yes Hx Parkinson's Disease No Hx Seizures No: denies Hx Speech Problem No Hx Syncope No Hx Transient Ischemic Attacks No (TIA) Hx Weakness Yes: rt hip weak PMH - GI Hx Gastrointestinal Disorders No Hx Abdominal Pain No Hx Celiac Disease No Hx Crohn's Disease No Hx Diverticulitis No Hx Gastrointestinal Bleed No Hx Gastroesophageal Reflux No: denies reflux on Zantac Hx Hepatitis/Jaundice No Hx Hiatal Hernia No Hx Irritable Bowel No Hx Liver Disease No Hx Nausea/Vomiting No Hx Obstructive Bowel No Hx Pancreatitis No Hx Rectal Bleeding No Hx Ulcer No Hx Weight Loss/Weight Gain No PMH - Hx Genitourinary Disorders Yes Hx Bladder Problem No Hx Kidney Stones No Hx Prostate Problems No: pt states no but on flomax Hx Renal Disease Yes: functioning ok per renal DR Hx Urinary Tract Infection No PMH - Endocrine Hx Endocrine Disorders Yes Hx Diabetes Yes Hx Thyroid Disease No Hx of NIDDM Yes Hx of IDDM Yes Comment: Last accu 147 today PMH - Musculoskeletal Hx Musculoskeletal Disorders Yes Hx Arthritis Yes Hx Back Injury Yes Hx Fibromyalgia No Hx Gout No Hx Musculoskeletal Disease Yes Hx Osteoporosis No Comment: chronic pain; hx septic hip in past PMH - Psych Hx Psychiatric Problems No Hx Anxiety No Hx Behavior Problems No Hx Depression No Hx Emotional Abuse No Hx Sexual Abuse No Hx Suicide Attempt No PMH - Hematology/Oncology Hx Hematology/Oncology Yes Disorders Hx Anemia Yes Hx Blood Disorders No Hx Bruising Yes Hx Cancer Yes: skin Hx Clotting Problems Yes Hx Sickle Cell Disease No Hx Unexplained Bleeding No Hx Blood Transfusion Reaction No Comment: pt to bridge with Lovenox 4 days preop Premorbid Status: Detail (Pt. fell on 07/30/18 and was admitted to [facility], d/c on 08/13/18. Daughter stated pt. has L1 fracture. Pt. was at [facility] February 22 d/t hip dislocation. Pt. reported being Ind. with self-care and household responsibilities with some assistance from daughter, such as donning socks and compression garments (dtr stated she checks his wounds/skin daily).) Social History: Detail (Lives alone in 1 story house with 3 step entry and 1 railing. Bathroom has a walk-in shower (and pt typically stands) with grab bar and HH shower head; elevated toilet seat with grab bars. Pt. has a 2 wheeled walker but dislikes using it, a standard cane, multiple reachers, sock aid ( doesn't use), and velcro shoes.) Precautions: [place], Fall Subjective Information - Subjective Information Per Patient (The patient had complaints of shortness of breath even in sitting prior to discharge. The patient continues to complain of R groin with ambulation.) Objective Data - Mental Status Patient Orientation: Oriented x3 - Visual Perception Appears within normal limits for therapeutic activities - ROM Within normal limits (LE AROM was WNL except for R hip AROM was not tested secondary to pain complaints.) - Strength/Tone Not within normal limits (The patient's LE strength was the same as initial evaluation: hip flexors R 3/5, L 4-/5, hip abductors R 3+/5, L 4/5, hip adductors R 4-/5, L 4/5, hip extensors bilateral 3+/5, knee flexors R 4-/5, L 4+ /5, knee extensors R 4/5, L 4+/5, ankle musculature 5/5.) - Bed Mobility Independent - Transfers Needs Assist (The patient was independent with sit to and from stand from higher surface. The patient required mod PA of 2 with sit to and from stand from lower surface. The patient required and additional step and supervision for safety with truck transfer.) - Balance Balance Sitting: Good Balance Standing: Good - Gait Detail (The patient ambulated with front wheeled walker a distance of 140 feet x 1 with supervision for safety, shortness of breath with ambulation was variable.) Therapy Assessment - Therapy Assessment Detail (The patient was transferred to [facility] due to medical status and requiring dialysis.) Problem List - Problem List Physical Therapy Problem List: Detail (1) Decreased LE strength 2) Decreased ability to complete prolonged phyiscal activity 3) R hip pain which is limiting patient's function) Occupational Therapy Problem List: Detail (decreased Ind. w/ ADL's, reduced activity tolerance, decreased BUE strength) Goals - Goals Physical Therapy Goals: GOALS NOT MET. 1) Increase LE strength 1/3 muscle to improve the patient's ability to complete functional activities. 2) The patient will ambulate stairs with supervision for safety. 3) The patient will ambulate distances of 300 feet plus with assistive device independently. 4) The patient will tolerate 30 to 45 minutes of physical activity with one rest period. Occupational Therapy Goals: 1) Pt. will be modified Ind. with his typical self- care ADL routine. 2) Pt. will be Ind. with BUE HEP with use of handout if needed. Plan - Plan Physical Therapy Plan: The patient was transferred to [facility] due medical status. Occupational Therapy Plan: Provide OT services 2-4x/week Mon-Fri during typical rehab business hours until pt. meets all OT goals and/or is d/c from hospital.
== END 2018-08-20 18:00 | disposition short-term general hospital (02) | DRG 948 ==
LOC: MEDSURG 08-13 17:01
PROVIDERS: ADMIT Internal Medicine; ATTEND Internal Medicine
DX: R53.81 Other malaise (principal); D68.61 Antiphospholipid syndrome; R55 Syncope and collapse; I50.9 Heart failure, unspecified; N18.3 Chronic kidney disease, stage 3 (moderate); E11.9 Type 2 diabetes mellitus without complications; Z79.4 Long term (current) use of insulin; I10 Essential (primary) hypertension; E78.5 Hyperlipidemia, unspecified; I25.2 Old myocardial infarction; I48.91 Unspecified atrial fibrillation; Z79.01 Long term (current) use of anticoagulants; J44.9 Chronic obstructive pulmonary disease, unspecified; R60.9 Edema, unspecified; Z96.641 Presence of right artificial hip joint
CPT/HCPCS: 36416; 80048; 80053; 82948; 83880; 85027; 85610; 93925; 94640; 97110; 97530; 97535; 99306; 99309; 99316; J7613

== ENCOUNTER 2018-09-02 17:16 | Inpatient (IN) | payer MEDICARE, OTHER ==
[2018-09-02] MEDS: WARFARIN 1 MG TABLET PO SCH (18:19)
[2018-09-02] MEDS: ATORVASTATIN 20 MG TABLET PO SCH (21:55)
[2018-09-02] MEDS: RANITIDINE HCL 150 MG TABLET PO SCH (21:55)
[2018-09-02] MEDS: SENNOSIDES/DOCUSATE SODIUM UD CAPSULE PO SCH (21:55)
[2018-09-02] MEDS: LEVEMIR FLEXTOUCH 100 UNIT/ML INSULIN PEN SQ SCH (21:59)
[2018-09-02] MEDS: NOVOLOG FLEXPEN (INSULIN ASPART) 100 UNITS/ML SQ SCH (22:02)
[2018-09-02] MEDS: OXYCODONE HCL/APAP 5MG/325MG TABLET PO PRN (23:22)
[2018-09-03] MEDS: LEVOTHYROXINE SODIUM 125 MCG TABLET PO SCH (06:22)
[2018-09-03] MEDS: NOVOLOG FLEXPEN (INSULIN ASPART) 100 UNITS/ML SQ SCH ×4 (08:08→22:15)
[2018-09-03] MEDS: BREO (FLUTICASONE/VILANTEROL) 200MCG/25MCG INHALER INH SCH (09:23)
[2018-09-03] MEDS: ALBUTEROL SULFATE (0.083%) 2.5 MG/3 ML NEB INH PRN (09:23)
[2018-09-03] MEDS: ENOXAPARIN 100 MG/ML SYR SQ SCH (09:26)
[2018-09-03] MEDS: AMIODARONE HCL 200 MG TABLET PO SCH (09:26)
[2018-09-03] MEDS: SENNOSIDES/DOCUSATE SODIUM UD CAPSULE PO SCH ×2 (09:26→22:18)
[2018-09-03] MEDS: OXYCODONE HCL/APAP 5MG/325MG TABLET PO PRN ×2 (10:18→19:59)
--- NOTE | 2018-09-03 11:22 | History & Physical ---
History of Present Illness - Date Date of Service for History & Physical: 09/03/18 - History of Present Illness Admitting Diagnosis: Deconditioning secondary to fluid overload History of Present Illness: Mr. Simms is a 78 year old male who has had an extensive run of frequent admissions to the [facility] program with subsequent transfers to [facility] inpatient units for varying health concerns. Patient was admitted to [facility] from 07/30/18 to 08/13/18 after an unwitnessed syncopal episode in his home. He was then transferred to [facility] at [facility] 08/13-08/20 for deconditioning due to recent hospitalization. He was transferred back to [facility] 08/20 per nephrology recommendations after a 6lb weight gain, decreasing renal function, and decreasing urinary frequency. Patient was at [facility] 08/20-08/23 for CHF and CKD evaluation. He was readmitted back to [facility] at [facility] 08/23-08/31, at which time he was transferred back to [facility] due to decreasing kidney function and started on dialysis. An Chip catheter was placed in the right subclavian and he has been started on a dialysis schedule. His past medical history includes hypothyroidism, CHF, DM II, CKD with dialysis , COPD, chronc back pain with infusion pain pump, afib, cardiac arrest x 2 with AICD implant, DVT and antiphospholipid syndrome currently bridging to coumadin from lovenox. Nephrology: Dr. Barber Cardiology: Dr. Griggs Kidney function trends: 08/27: BUN 61, CR 1.8, GFR 39 09/01: BUN 41, CR 1.8, GFR 34 09/02: BUN 38, CR 2.1, GFR 29 09/03/18: Today patient states he is feeling well, denying any current pain. Patient is to go to his first outpatient dialysis appointment today. His daughter, Omega, continues to change dressings on weeping leg wounds daily. Since last admission, a stage II pressure ulcer has been noted on has sacrum and a skin tear of left elbow. Patient is currently being bridged to coumadin via lovenox, pharmacy to dose. General - Cognitive Patterns Orientation: Oriented x3 - Communication Preferred Language?: Bhutanese Collar Separator Required: No Level of Education: High School Preferred Method of Learning: Seeing, Doing Comprehension Ability: No Impairment Able to Read: Yes Able to Write: Yes Select best description of speech pattern: Clear Speech Ability to express ideas and wants: Understood Understanding verbal content: Understands - Psychosocial Well-Being Usual Living Arrangement: Alone - Physical Functioning Activity Level: Up with assist x1 Turning: Self ad trista ROM Ability: Moves all extremities Assistive Devices: 2 Wheel Walker Ambulation Ability: Needs Assist Bed Mobility: Independent Transfer Ability: Needs Assist Bathing Ability: Needs Assist Personal Hygiene: Independent Dressing Ability: Independent Eating (Feeding) Ability: Independent Administer Own Medication: Independent - Continence Bowel Pattern: Normal for Patient Bladder Pattern: Normal - Dental Status Broken or loosely fitting full or partial dentures: No No natural teeth or tooth fragment(s) (edentulous): No Abnormal mouth tissue (ulcers, masses, oral lesions, etc.): No Obvious or likely cavity or broken natural teeth: No Inflamed or bleeding gums or loose natural teeth: No Mouth/facial pain, discomfort or difficulty chewing: No - Nutrition Screening Poor oral intake > 1 week: No Unplanned weight loss in specified time frame: No Nutrition Support via tube feedings or parenteral nutrition: No Pressure Ulcer: No Significantly underweight define as BMI <18.5 kg/m2: No Albumin <2.5mg/dL: No Persistent nausea/vomiting/diarrhea >3 days: No Difficulty chewing/swallowing/mouth sores: No Admitting Diagnosis: No Nutrition Risk Score: Low Risk Review of Systems Reviewed: No additional complaints except as noted below Constitutional: Reports: As per HPI. Denies: Chills, Fever, Malaise, Weakness Eyes: Reports: As per HPI ENT: Reports: As per HPI Respiratory: Reports: As per HPI Cardiovascular: Reports: As per HPI Endocrine: Reports: As per HPI Gastrointestinal: Reports: As per HPI. Denies: Abdominal pain, Constipation, Diarrhea Genitourinary: Reports: As per HPI Musculoskeletal: Reports: As per HPI Skin: Reports: As per HPI, Bruising Neurological: Reports: As per HPI. Denies: Headache, Numbness, Paresthesias, Seizure Psychiatric: Reports: As per HPI Hematological/Lymphatic: Reports: As per HPI, Easy bleeding, Easy bruising Past Medical History - SOCIAL HISTORY Smoking Status: Former smoker Alcohol Use: None - SURGICAL HISTORY Past Surgical History: multiple back injs rhizos etc. pump trial with dilaudid implanted cath (permanent device in place). Back surgery X5, neck surgery, Hip & shoulder sx,Bunionectomy,bilat right hip replacement, AICD, abscess rt thigh, septic hip, hematoma rt thigh, revision x2, evac of hematoma post rt hip;. lumbar rhizotomy 05/31/15. permanent pain pump 2015. C2-3 lminectomy 09/19. rt hip arthroplasty 01/18 - RESPIRATORY Hx Respiratory Disorders: Yes Hx Asthma: Yes Hx Bronchitis: No Hx COPD: Yes Hx Dyspnea: Yes ("very slight") Hx Pneumonia: Yes (1989, 2016) Hx Pulmonary Embolism: No Hx Sleep Apnea: No Hx Tuberculosis: No - CARDIOVASCULAR Hx Cardio Disorders: Yes Hx Abnormal EKG: Yes (NSR now) Hx Cardiac Cath: No Hx Chest Pain: No Hx CHF: Yes Hx Deep Vein Thrombosis: Yes (none since 01/2017) Hx Edema: Yes (bilat legs recent hospitalization) Hx Heart Attack: No Hx Hypertension: Yes Hx Irregular Heartbeat: Yes (hx a fib had cardioversion 1990 & 01/2017) Hx Palpitations: No Hx Pacemaker/Defib: Yes (2014) Hx Vascular Disease: Yes Comment:: hospitalizations states cardiac arrest during past hospitalization - NEURO Hx Neuro Disorders: No Hx Seizures: No (denies) - GI Hx GI Disorders: Yes Hx Abdominal Pain: No Hx Celiac Disease: No Hx Crohn's Disease: No Hx Diverticulitis: No Hx GI Bleed: No Hx Reflux: Yes (denies reflux on Zantac) Hx Hepatitis/Jaundice: No Hx Hiatal Hernia: No Hx Irritable Bowel: No Hx Liver Disease: No Hx Nausea/Vomiting: No Hx Obstructive Bowel: No Hx Pancreatitis: No Hx Rectal Bleeding: No Hx Ulcer: No Hx Wt Loss/Wt Gain: No Hx of Polyps: No - Hx Genitourinary Disorders: Yes Hx Bladder Problem: No Hx Dialysis: Yes (scheduled tue,thur,sat) Hx Kidney Stones: No Hx Prostate Problems: No (pt states no but on flomax) Hx Renal Disease: Yes (functioning ok per renal DR) Hx UTI: No - ENDOCRINE Hx Endocrine Disorders: Yes Hx Diabetes: Yes - MUSCULOSKELETAL Hx Musculoskeletal Disorders: Yes Hx Arthritis: Yes Hx Back Injury: Yes Hx Fibromyalgia: No Hx Gout: No Hx Musculoskeletal Disease: Yes Hx Osteoporosis: No Comment:: chronic pain; hx septic hip in past - PSYCH Hx Psych Problems: Yes Hx Anxiety: No Hx Behavior Problems: No Hx Depression: Yes Hx Emotional Abuse: No Hx Sexual Abuse: No Hx Suicide Attempt: No Major Depressive Episode: No Feelings of Hopelessness: No - HEMATOLOGY/ONCOLOGY Hx Hematology/Oncology Disorders: Yes Hx Anemia: Yes Hx Blood Disorders: No Hx Bruising: Yes Hx Cancer: Yes (skin) Hx Clotting Problems: Yes Hx Sickle Cell Disease: No Hx Unexplained Bleeding: No Hx Blood Transfusions: Yes (with hip surgery, and hematoma) Hx Blood Transfusion Reaction: No Family Medical History Any Significant Family History?: Yes Hx Cancer: Father, Mother Hx Dementia: Mother *Dementia Comment: mother alzheimers H&P Meds/Allergies - Allergies Allergies: Allergies Allergy/AdvReac Type Severity Reaction Status Date / Time onion Allergy Intermediate NAUSEA Verified 01/30/16 14:13 rivaroxaban [From Xarelto] AdvReac Severe BRUISING Verified 04/10/18 10:00 - Home Medications Previous Rx's Medication Instructions Recorded Bumetanide [Bumex] 2 mg PO BIDDIUR tablet 09/22/17 Levothyroxine Sodium [Synthroid] 125 mcg PO DAILYTHY tablet 09/22/17 Oxycodone HCl/Acetaminophen 1 each PO Q4H PRN tablet 09/22/17 [Percocet 10mg/325mg] Oxycodone HCl/Acetaminophen 1 udtab PO Q6H PRN tablet 09/22/17 [Percocet 5mg/325mg] Atorvastatin Calcium 20 mg PO DAILY #30 tablet 11/13/17 Magnesium 400 mg PO DAILY #0 11/13/17 Metolazone [Zaroxolyn] 2.5 mg PO DAILY #30 tablet 11/13/17 Metoprolol Succinate [Toprol Xl] 12.5 mg PO DAILY #30 tab.er.24h 11/13/17 Potassium Chloride [Klor-Con] 40 meq PO TIDAC #180 tablet.sa 11/13/17 Bifidobacterium Infantis [Align] 4 mg PO DAILY #30 capsule 01/19/18 Albuterol Sulfate [Ventolin Hfa] 2 puff INH Q4H PRN inhaler 03/07/18 Amiodarone HCl [Pacerone] 200 mg PO DAILY tablet 03/07/18 Ascorbic Acid [Vitamin C] 1,000 mg PO BID tab 03/07/18 Ferrous Sulfate [Iron] 325 mg PO WMEALS tablet 03/07/18 Fluticasone/Vilanterol 200/25 1 puff INH DAILY inhaler 03/07/18 [Breo Ellipta 200-25 Mcg INH] Insulin Detemir [Levemir Flextouch] 6 unit SQ QHS syringe 03/07/18 Levothyroxine Sodium [Synthroid] 150 mcg PO DAILYTHY tab 03/07/18 Magnesium Oxide [Mag Ox] 400 mg PO BID tab 03/07/18 Metolazone [Zaroxolyn] 2.5 mg PO TuSa tablet 03/07/18 Metoprolol Succinate [Toprol Xl] 12.5 mg PO DAILY tab.er.24h 03/07/18 Multivitamin/Iron/Folic Acid 1 tab PO DAILY tablet 03/07/18 [Centrum] Ondansetron [Zofran Odt] 4 mg SL Q6H PRN tab.rapdis 03/07/18 Oxycodone HCl/Acetaminophen 1 each PO Q6H PRN tablet 03/07/18 [Percocet 10mg/325mg] Oxycodone HCl/Acetaminophen 2 each PO Q6H PRN tablet 03/07/18 [Percocet 10mg/325mg] Polyethylene Glycol 3350 [Miralax] 17 gm PO QHS packet 03/07/18 Potassium Chloride [Klor-Con] 40 meq PO BID tablet.sa 03/07/18 Sennosides/Docusate Sodium [Senna 2 each PO QHS capsule 03/07/18 Plus] Tamsulosin HCl [Flomax] 0.4 mg PO QHS cap.er.24h 03/07/18 Torsemide 20 mg PO [id number] tablet 03/07/18 Torsemide 40 mg PO DAILY tablet 03/07/18 Warfarin Sodium [Coumadin] 2 mg PO SuMoWeThFr tablet 03/07/18 Warfarin Sodium [Coumadin] 3 mg PO TuSa tablet 03/07/18 Albuterol Sulfate 0.083% [Neb] 2.5 mg INH RESP.Q4H PRN 08/20/18 nebulization solution Allopurinol [Zyloprim] 100 mg PO DAILY tablet 08/20/18 Amiodarone HCl [Pacerone] 200 mg PO DAILY tablet 08/20/18 Ascorbic Acid [Vitamin C] 1,000 mg PO BID tab 08/20/18 Ferrous Sulfate [Iron] 325 mg PO WMEALS tablet 08/20/18 Fluticasone/Vilanterol 200/25 1 puff INH DAILY inhaler 08/20/18 [Breo Ellipta 200-25 Mcg INH] Insulin Detemir [Levemir Flextouch] 10 unit SQ QHS syringe 08/20/18 Levothyroxine Sodium [Synthroid] 125 mcg PO DAILYTHY tablet 08/20/18 Magnesium Oxide [Mag Ox] 400 mg PO DAILY tab 08/20/18 Metoprolol Succinate [Toprol Xl] 25 mg PO DAILY tab.er.24h 08/20/18 Multivitamin/Iron/Folic Acid 1 tab PO DAILY tablet 08/20/18 [Centrum] Oxycodone HCl/Acetaminophen 1 each PO Q4H PRN tablet 08/20/18 [Percocet 10mg/325mg] Polyethylene Glycol 3350 [Miralax] 17 gm PO QHS packet 08/20/18 Ranitidine HCl [Zantac] 150 mg PO BID tablet 08/20/18 Sennosides/Docusate Sodium [Senna 2 each PO QHS capsule 08/20/18 Plus] Tamsulosin HCl [Flomax] 0.4 mg PO QHS cap.er.24h 08/20/18 Torsemide 10 mg PO BIDDIUR tablet 08/20/18 Warfarin Sodium [Coumadin] 2 mg PO TuSa tablet 08/20/18 Warfarin Sodium [Coumadin] 3 mg PO SuMoWeThFr tablet 08/20/18 - Active Medications Active Medications: Current Medications Albuterol Sulfate () 2.5 mg INH RESP.Q4H.WA PRN PRN Reason: DIFFICULTY IN BREATHING Last Admin: 09/03/18 09:23 Dose: 2.5 mg Amiodarone HCl (Pacerone) 200 mg PO DAILY [facility] Last Admin: 09/03/18 09:26 Dose: 200 mg Atorvastatin Calcium (Lipitor) 20 mg PO QHS [facility] Last Admin: 09/02/18 21:55 Dose: 20 mg Enoxaparin Sodium (Lovenox) 100 mg SQ DAILY [facility] Last Admin: 09/03/18 09:26 Dose: 100 mg Insulin Aspart (Novolog Flexpen) 1 unit SQ QIDINS [facility]; Protocol Last Admin: 09/03/18 08:08 Dose: Not Given Insulin Detemir (Levemir Flextouch) 12 unit SQ QHS [facility] Last Admin: 09/02/18 21:59 Dose: 12 unit Levothyroxine Sodium (Synthroid) 125 mcg PO DAILYTHY [facility] Last Admin: 09/03/18 06:22 Dose: 125 mcg Oxycodone/Acetaminophen (Percocet 5-325 Mg Tablet) 1 udtab PO Q4H PRN PRN Reason: PAIN - MOD TO SEVERE (5-10) Stop: 09/09/18 15:22 Last Admin: 09/03/18 10:18 Dose: 1 udtab Ranitidine HCl (Zantac) 150 mg PO QHS [facility] Last Admin: 09/02/18 21:55 Dose: 150 mg Senna/Docusate Sodium (Senna Plus) 2 each PO BID [facility] Last Admin: 09/03/18 09:26 Dose: 2 each Warfarin Sodium (Coumadin) 2 mg PO TuSa [facility] Warfarin Sodium (Coumadin) 3 mg PO SuMoWeThFr [facility] Last Admin: 09/02/18 18:19 Dose: 3 mg Physical Exam - Vital Signs Vital Signs: Vital Signs - Last 24 Hrs Temp Pulse Pulse Pulse Resp BP Pulse Ox 09/03/18 09:23 86 18 98 09/03/18 07:40 97.6 F 86 14 108/54 98 09/02/18 20:00 97.9 F 83 20 110/67 97 09/02/18 16:00 97.7 F 85 20 108/87 95 - General General Appearance: Alert, Oriented x3, Cooperative - Head Head exam: Atraumatic - Eye Eye exam: Normal appearance - ENT Mouth exam: Normal external inspection, Tongue normal - Neck Neck exam: Normal inspection - Respiratory Respiratory exam: Normal lung sounds bilaterally. negative: Respiratory distress - Cardiovascular Cardiovascular Exam: Regular rate, Normal rhythm, Normal heart sounds Peripheral Pulses: 2+: Radial (R), Radial (L) - GI/Abdominal GI/Abdominal exam: Soft, Normal bowel sounds. negative: Tenderness - Rectal Rectal exam: Deferred - exam: Deferred - Extremities Extremities exam: Other (bilateral lower extremity pitting edema, weeping, dressings in place) - Neurological Neurological exam: Oriented X3 - Psychiatric Psychiatric exam: Normal affect, Normal mood - Skin Skin exam: Abrasion (left elbow skin tear), Other (stage II pressure ulcer on sacrum) H&P Results - Labs Labs Last 24 Hours: Laboratory Results - last 24 hr 09/02/18 09/03/18 21:54 07:30 POC Glucose 151 H 97 Discharge Potential - Discharge Needs Patient Discharge Plan Description: Return Home Plan - Swing Bed Certification Initial Certification Due: 09/02/18 14 Day Re-Cert Due: 09/16/18 44 Day Re-Cert Due: 10/16/18 74 Day Re-Cert Due: 11/15/18 - Detailed Diagnosis and Plan (1) Physical deconditioning Current Visit: No Status: Acute Base Code: R53.81 - OTHER MALAISE Priority : High Comment: 09/03/18: -Secondary to multiple hospitalizations, worsening of ESRD, CHF -PT/OT evaluation and treatment. (2) ESRD (end stage renal disease) Current Visit: Yes Status: Acute Base Code: N18.6 - END STAGE RENAL DISEASE Comment: 09/03/18: -Dialysis T/TH/Sat -Chip cath placed in right subclavian -Follow-up with Dr. Barber -Will consider restarting Torsemide 10mg BID on non-dialysis days (3) Atrial fibrillation Current Visit: No Status: Acute Base Code: I48.91 - UNSPECIFIED ATRIAL FIBRILLATION Comment: 09/03/18: -Continue Amiodarone 200mg q.am -Has AICD/PPM -Briding to coumadin with lovenox for antiphospholipid syndrome (4) Bilateral lower extremity edema Current Visit: No Status: Acute Base Code: R60.0 - LOCALIZED EDEMA Comment : 09/03/18: -chronic lower extremity edema with clear weeping discharge -Dressing changes daily -Dialysis to help with fluid overload (5) COPD (chronic obstructive pulmonary disease) Current Visit: No Status: Acute Base Code: J44.9 - CHRONIC OBSTRUCTIVE PULMONARY DISEASE, UNSPECIFIED Comment: 09/03/18: -Continue Breo -Continue Albuterol PRN (6) CHF (congestive heart failure) Current Visit: No Status: Chronic Base Code: I50.9 - HEART FAILURE, UNSPECIFIED Comment: 08/23/18: -2L Fluid restriction -Daily Weight -I & O (7) Diabetes Current Visit: No Status: Chronic Qualifiers: Diabetes mellitus type: type 2 Diabetes mellitus mcfp insulin use: with mcfp use Diabetes mellitus complication status: with hyperglycemia Qualified Code(s): E11.65 - Type 2 diabetes mellitus with hyperglycemia; Z79.4 - senior living (current) use of insulin Base Code: E11.9 - TYPE 2 DIABETES MELLITUS WITHOUT COMPLICATIONS Comment: 09/03/18: -Continue sliding scale with ac, hs coverage -Accuchecks AC & HS -ADA diet (8) DVT prophylaxis Current Visit: No Status: Acute Base Code: [id number] - Comment: 09/03/18: patient is high risk due to age, hospitalization, and decreased mobility - continue bridging to coumadin with lovenox, pharmacy to dose (9) Full code status Current Visit: No Status: Acute Base Code: Z78.9 - OTHER SPECIFIED HEALTH STATUS Comment: 09/03/18: Full code status
--- NOTE | 2018-09-03 11:24 | Physical Therapy Tx Note ---
Physical Therapy Tx Note - Treatment Note Tolerated: Other Physical Therapy Tx Note: Detail (Pt up in chair having LE wounds cleaned and re -dressed in preparation for outing for dialysis. Unable to complete evaluation ; will attempt visit later today when patient returns from appointment.)
--- NOTE | 2018-09-03 11:38 | Swing Bed Certification/Recert ---
Initial Certification Due: 09/02/18 14 Day Re-Cert Due: 09/16/18 44 Day Re-Cert Due: 10/16/18 74 Day Re-Cert Due: 11/15/18 CERTIFICATION 3 CERTIFICATION OF PATIENT ADMISSION Required at time of admission. Due: 09/02/18 I certify that SNF services are required to be given on an inpatient basis because of the above named patient's need for custodial care on a continuing basis for the condition(s) for which he/she was receiving inpatient hospital services prior to his/her transfer to the SNF. The patient's current needs for skilled care includes: [PT/OT for deconditioning , lab monitoring for ESRD, monitoring of CHF] Maru Lara, N.P. 09/03/18
[2018-09-03] MEDS: WARFARIN 1 MG TABLET PO SCH (18:14)
[2018-09-03] MEDS: LEVEMIR FLEXTOUCH 100 UNIT/ML INSULIN PEN SQ SCH (22:17)
[2018-09-03] MEDS: ATORVASTATIN 20 MG TABLET PO SCH (22:18)
[2018-09-03] MEDS: RANITIDINE HCL 150 MG TABLET PO SCH (22:18)
[2018-09-03] MEDS: POLYETHYLENE GLY 17 GM PACKET PO PRN (22:19)
[2018-09-04] MEDS: OXYCODONE HCL/APAP 5MG/325MG TABLET PO PRN ×4 (01:46→21:38)
[2018-09-04] MEDS: LEVOTHYROXINE SODIUM 125 MCG TABLET PO SCH (06:22)
[2018-09-04] MEDS: NOVOLOG FLEXPEN (INSULIN ASPART) 100 UNITS/ML SQ SCH ×4 (09:00→21:49)
[2018-09-04] MEDS: SENNOSIDES/DOCUSATE SODIUM UD CAPSULE PO SCH ×2 (10:03→21:38)
[2018-09-04] MEDS: AMIODARONE HCL 200 MG TABLET PO SCH (10:03)
[2018-09-04] MEDS: ENOXAPARIN 100 MG/ML SYR SQ SCH (10:16)
[2018-09-04] MEDS: BREO (FLUTICASONE/VILANTEROL) 200MCG/25MCG INHALER INH SCH (10:21)
[2018-09-04] MEDS: ALBUTEROL SULFATE (0.083%) 2.5 MG/3 ML NEB INH PRN (10:21)
--- NOTE | 2018-09-04 13:47 | Rehab Evaluation ---
Patient Information - Patient Information Diagnosis: Deconditioning secondary to fluid overload Ordered Treatment: PT Evaluate and Treat Status: Initial Evaluation Past Medical/Surgical Hx: PAST MEDICAL/SURGICAL HISTORY Past Surgical History multiple back injs rhizos etc pump trial with dilaudid implanted cath ( permanent device in place) Back surgery X5, neck surgery, Hip & shoulder sx ,Bunionectomy,bilat right hip replacement, AICD , abscess rt thigh, septic hip, hematoma rt thigh , revision x2, evac of hematoma post rt hip; lumbar rhizotomy 05/31/15. permanent pain pump 2015 C2-3 lminectomy 09/19 rt hip arthroplasty 01/18 PMH - Respiratory Hx Respiratory Disorders Yes Hx Asthma Yes Hx Bronchitis No Hx Chronic Obstructive Yes Pulmonary Disease (COPD) Hx Dyspnea Yes: "very slight" Hx Pneumonia Yes: 1989, 2016 Hx Pulmonary Embolism No Hx Sleep Apnea No Hx Tuberculosis No Hx of CPAP No Hx of SOB Yes: CHF PMH - Cardiovascular Hx Cardiovascular Disorders Yes Hx Abnormal EKG Yes: NSR now Hx Cardiac Catheterization No Hx Chest Pain No Hx Congestive Heart Failure Yes Hx Deep Vein Thrombosis Yes: none since 01/2017 Hx Edema Yes: bilat legs recent hospitalization Hx Heart Attack No Hx Hypertension Yes Hx Irregular Heartbeat Yes: hx a fib had cardioversion 1990 & 01/2017 Hx Palpitations No Hx Pacemaker/Defibrillator Yes: 2014 Hx Vascular Disease Yes Hx Transient Ischemic Attacks No (TIA) Comment: hospitalizations states cardiac arrest during past hospitalization 07/18 PMH - Neuro Hx Neurological Disorders No Hx Brain Tumor No Hx Cerebrovascular Accident No Hx Dementia No Hx Dizziness No Hx Headaches No Hx Neuropathy Yes Hx Parkinson's Disease No Hx Seizures No: denies Hx Speech Problem No Hx Syncope No Hx Transient Ischemic Attacks No (TIA) Hx Weakness Yes: rt hip weak PMH - GI Hx Gastrointestinal Disorders Yes Hx Abdominal Pain No Hx Celiac Disease No Hx Crohn's Disease No Hx Diverticulitis No Hx Gastrointestinal Bleed No Hx Gastroesophageal Reflux Yes: denies reflux on Zantac Hx Hepatitis/Jaundice No Hx Hiatal Hernia No Hx Irritable Bowel No Hx Liver Disease No Hx Nausea/Vomiting No Hx Obstructive Bowel No Hx Pancreatitis No Hx Rectal Bleeding No Hx Ulcer No Hx Weight Loss/Weight Gain No PMH - Hx Genitourinary Disorders Yes Hx Bladder Problem No Hx Dialysis Yes: scheduled tue,thur,sat Hx Kidney Stones No Hx Prostate Problems No: pt states no but on flomax Hx Renal Disease Yes: functioning ok per renal DR Hx Urinary Tract Infection No PMH - Endocrine Hx Endocrine Disorders Yes Hx Diabetes Yes Hx Thyroid Disease No Hx of NIDDM Yes Hx of IDDM Yes Comment: Last accu 147 today PMH - Musculoskeletal Hx Musculoskeletal Disorders Yes Hx Arthritis Yes Hx Back Injury Yes Hx Fibromyalgia No Hx Gout No Hx Musculoskeletal Disease Yes Hx Osteoporosis No Comment: chronic pain; hx septic hip in past PMH - Psych Hx Psychiatric Problems Yes Hx Anxiety No Hx Behavior Problems No Hx Depression Yes Hx Emotional Abuse No Hx Sexual Abuse No Hx Suicide Attempt No Major Depressive Episode No Feelings of Hopelessness No PMH - Hematology/Oncology Hx Hematology/Oncology Yes Disorders Hx Anemia Yes Hx Blood Disorders No Hx Bruising Yes Hx Cancer Yes: skin Hx Clotting Problems Yes Hx Sickle Cell Disease No Hx Unexplained Bleeding No Hx Blood Transfusion Reaction No Comment: pt to bridge with Lovenox 4 days preop Premorbid Status: Detail (The patient prior to readmission was ambulatory household distances with 2 wheeled walker and acheiving sit to stand from lower surface with moderate PA and independent from higher surface. The patient exhibited shortness of breath at times with activity.) Social History: Detail (The patient lives alone in a one story house with 3 step at the entry and 1 railing. The patient's bathroom has a [id number] ( typically stands) with grab bar and head held shower, elevated toilet seat with grab bars. The patient has a 2 wheeled walker, standard cane, multiple reaches, sock aide and velcro shoes.) Precautions: [place], Fall - Time With Patient Total Time Spent With Patient (Min): 30 Treatment Procedures: Detail (Initial Evaluation, therapuetic exercise) Subjective Information - Subjective Information Per Patient (The patient had complaints of R groin pain which he rated as 10 with activity. The patient also complained of fatigue with activity.) Objective Data - Mental Status Patient Orientation: Oriented x3 - Visual Perception Appears within normal limits for therapeutic activities - ROM Not within normal limits (The patient's L LE AROM is WNL. The patient's R LE is WNL, except hip ROM was not tested secondary to hip pain.) - Strength/Tone Not within normal limits (The patient's LE strength is as follows: R hip flexors 3/5, L 4-/5, hip abductors and adductors R 4-/5, L 4/5, B hip extensors 3+/5, Knee extensors R 4/5, L 4+/5, knee flexors R 4/5, L4+/5, ankle dorsiflexors R 4-/5, L4/5, plantar flexors 4/5.) - Bed Mobility Needs Assist (Not assessed.) - Transfers Needs Assist (The patient is independent with sit to and from stand transfer from high surface. The patient requires moderate PA with sit to stand from low surface.) - Balance Balance Sitting: Good Balance Standing: Fair (The patient can stand without support with wide base of support without perturbations.) - Gait Detail (The patient ambulated with front wheeled walker a distance of 75 feet x 1 with supervision for safety. No shortness of breath was noted.) Therapy Assessment - Therapy Assessment Detail (The patient exhibits decreased LE strength and decreased ability to complete prolonged physical activity . Feel the patient will benefit from Rehab to increased LE strength and muscular endurance which will improve the patient' s functional level.) Patient Education - Patient Education Teaching Topic: Exercise/Activity (The patient completed Nustep x 6 minutes and LE strengthening exercises: standing squats, hip abduction, hip extension,knee flexion all x 10 reps bilaterally.) Response: Return Demonstration Teaching Method: Demonstration Teaching Recipient: Patient Barriers To Learning: None Problem List - Problem List Physical Therapy Problem List: Detail (1) Decreased LE strength 2) Decreased ability to complet physical activity 3) R groin pain which is limiting the patient's function 4) Assistance with transfers including car transfer and sit to stand from lower surface) Goals - Goals Physical Therapy Goals: 1) Increase LE strength 1/3 muscle grade to improve the patient's ablity to complete functional activities. 2) The patient will ambulate on stairs with supervision for safety. 3) The patient will ambulate distances of 200 feet plus with assistive device independently. 4) The patient will be independent with all transfers. 5) The patient will tolerate 30 to 45 minutes of physical activity with one rest period. Prognosis - Prognosis Good Plan - Plan Physical Therapy Plan: PT M-F 1-2 times a day for ambulation, LE strengthening exercise, balance exercises and mobility.
[2018-09-04] MEDS ORDERED: ZINC OXIDE 28.35 GM TUBE TOP ONE (14:29)
[2018-09-04] MEDS ORDERED: ZINC OXIDE 28.35 GM TUBE TOP PRN (14:47)
--- NOTE | 2018-09-04 15:37 | Rehab Evaluation ---
Patient Information - Patient Information Diagnosis: Deconditioning secondary to fluid overload Ordered Treatment: OT Evaluate and Treat Status: Initial Evaluation Surgery: No Past Medical/Surgical Hx: PAST MEDICAL/SURGICAL HISTORY Past Surgical History multiple back injs rhizos etc pump trial with dilaudid implanted cath ( permanent device in place) Back surgery X5, neck surgery, Hip & shoulder sx ,Bunionectomy,bilat right hip replacement, AICD , abscess rt thigh, septic hip, hematoma rt thigh , revision x2, evac of hematoma post rt hip; lumbar rhizotomy 05/31/15. permanent pain pump 2015 C2-3 lminectomy 09/19 rt hip arthroplasty 01/18 PMH - Respiratory Hx Respiratory Disorders Yes Hx Asthma Yes Hx Bronchitis No Hx Chronic Obstructive Yes Pulmonary Disease (COPD) Hx Dyspnea Yes: "very slight" Hx Pneumonia Yes: 1989, 2016 Hx Pulmonary Embolism No Hx Sleep Apnea No Hx Tuberculosis No Hx of CPAP No Hx of SOB Yes: CHF PMH - Cardiovascular Hx Cardiovascular Disorders Yes Hx Abnormal EKG Yes: NSR now Hx Cardiac Catheterization No Hx Chest Pain No Hx Congestive Heart Failure Yes Hx Deep Vein Thrombosis Yes: none since 01/2017 Hx Edema Yes: bilat legs recent hospitalization Hx Heart Attack No Hx Hypertension Yes Hx Irregular Heartbeat Yes: hx a fib had cardioversion 1990 & 01/2017 Hx Palpitations No Hx Pacemaker/Defibrillator Yes: 2014 Hx Vascular Disease Yes Hx Transient Ischemic Attacks No (TIA) Comment: hospitalizations states cardiac arrest during past hospitalization 07/18 PMH - Neuro Hx Neurological Disorders No Hx Brain Tumor No Hx Cerebrovascular Accident No Hx Dementia No Hx Dizziness No Hx Headaches No Hx Neuropathy Yes Hx Parkinson's Disease No Hx Seizures No: denies Hx Speech Problem No Hx Syncope No Hx Transient Ischemic Attacks No (TIA) Hx Weakness Yes: rt hip weak PMH - GI Hx Gastrointestinal Disorders Yes Hx Abdominal Pain No Hx Celiac Disease No Hx Crohn's Disease No Hx Diverticulitis No Hx Gastrointestinal Bleed No Hx Gastroesophageal Reflux Yes: denies reflux on Zantac Hx Hepatitis/Jaundice No Hx Hiatal Hernia No Hx Irritable Bowel No Hx Liver Disease No Hx Nausea/Vomiting No Hx Obstructive Bowel No Hx Pancreatitis No Hx Rectal Bleeding No Hx Ulcer No Hx Weight Loss/Weight Gain No PMH - Hx Genitourinary Disorders Yes Hx Bladder Problem No Hx Dialysis Yes: scheduled tue,thur,sat Hx Kidney Stones No Hx Prostate Problems No: pt states no but on flomax Hx Renal Disease Yes: functioning ok per renal DR Hx Urinary Tract Infection No PMH - Endocrine Hx Endocrine Disorders Yes Hx Diabetes Yes Hx Thyroid Disease No Hx of NIDDM Yes Hx of IDDM Yes Comment: Last accu 147 today PMH - Musculoskeletal Hx Musculoskeletal Disorders Yes Hx Arthritis Yes Hx Back Injury Yes Hx Fibromyalgia No Hx Gout No Hx Musculoskeletal Disease Yes Hx Osteoporosis No Comment: chronic pain; hx septic hip in past PMH - Psych Hx Psychiatric Problems Yes Hx Anxiety No Hx Behavior Problems No Hx Depression Yes Hx Emotional Abuse No Hx Sexual Abuse No Hx Suicide Attempt No Major Depressive Episode No Feelings of Hopelessness No PMH - Hematology/Oncology Hx Hematology/Oncology Yes Disorders Hx Anemia Yes Hx Blood Disorders No Hx Bruising Yes Hx Cancer Yes: skin Hx Clotting Problems Yes Hx Sickle Cell Disease No Hx Unexplained Bleeding No Hx Blood Transfusion Reaction No Comment: pt to bridge with Lovenox 4 days preop Premorbid Status: Detail (The patient prior to readmission was ambulatory household distances with 2 wheeled walker and acheiving sit to stand from lower surface with moderate PA and independent from higher surface. He was Ind with showering and dressing with exception of socks and shoes.) Social History: Detail (The patient lives alone in a one story house with 3 step at the entry and 1 railing. The patient's bathroom has a [id number] ( typically stands) with grab bar and head held shower, elevated toilet seat with grab bars. The patient has a 2 wheeled walker, standard cane, multiple reachers , sock aide and velcro shoes. Daughter assists with donning socks and shoes.) Precautions: [place], Fall - Time With Patient Total Time Spent With Patient (Min): 40 Treatment Procedures: Detail (OT eval low complexity) Subjective Information - Subjective Information Per Patient Objective Data - Pain Pain Present: Yes (10/10 in ozzy shoulders and groin) - Mental Status Patient Orientation: Oriented x3 - Visual Perception Appears within normal limits for therapeutic activities - ROM Not within normal limits (AROM - shoulder flexion right 35 degrees, left 95 degrees; shoulder abduction right 48 degrees, left 73 degrees; ER and IR functional but very painful; elbow and hand AROM WNL. 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 Pt has pain with all resistance throughout UEs.) - Coordination Appears within normal limits for therapeutic activities - Transfers Independent (Ind with sit to stand from wheelchair height) - Balance Balance Sitting: Good Balance Standing: Fair - Sensation Intact - Gait Detail (Pt ambulating in room with 2 wheeled walker Indly.) - ADL's/IADL's Detail (Pt reports he is unable to shower due to port for dialysis. He has been able to perform self cares although it is very difficult and his endurance is poor.) Therapy Assessment - Therapy Assessment Detail (Pt presents with significant impairments in UE function and decreased endurance needed for safe and Ind return home.) Problem List - Problem List Occupational Therapy Problem List: Detail (1. Decreased UE ROM and strength. 2. Decreased tolerance to activity needed for safe and Ind ADLs. 3. Need to further assess ADLs.) Goals - Goals Occupational Therapy Goals: 1. Pt will improve ozzy shoulder AROM by 15 degrees to allow improve Ind with overhead ADLs. 2. Pt will improve ozzy bicep strength to 4+/5. 3. Pt will demonstrate improved endurance to allow safe and Ind self cares. Prognosis - Prognosis Good Plan - Plan Occupational Therapy Plan: OT 2-4 days per week to address UE ROM and strength, endurance and ADLs.
[2018-09-04] MEDS: WARFARIN 1 MG TABLET PO SCH (17:28)
[2018-09-04] MEDS: POLYETHYLENE GLY 17 GM PACKET PO PRN (21:38)
[2018-09-04] MEDS: RANITIDINE HCL 150 MG TABLET PO SCH (21:38)
[2018-09-04] MEDS: ATORVASTATIN 20 MG TABLET PO SCH (21:38)
[2018-09-04] MEDS: LEVEMIR FLEXTOUCH 100 UNIT/ML INSULIN PEN SQ SCH (21:52)
[2018-09-05] MEDS: LEVOTHYROXINE SODIUM 125 MCG TABLET PO SCH (06:11)
[2018-09-05] MEDS: NOVOLOG FLEXPEN (INSULIN ASPART) 100 UNITS/ML SQ SCH ×4 (08:19→21:15)
[2018-09-05] MEDS: BREO (FLUTICASONE/VILANTEROL) 200MCG/25MCG INHALER INH SCH (09:46)
[2018-09-05] MEDS: ALBUTEROL SULFATE (0.083%) 2.5 MG/3 ML NEB INH PRN (09:46)
[2018-09-05] MEDS: SENNOSIDES/DOCUSATE SODIUM UD CAPSULE PO SCH ×2 (09:50→21:14)
[2018-09-05] MEDS: ENOXAPARIN 100 MG/ML SYR SQ SCH (09:50)
[2018-09-05] MEDS: AMIODARONE HCL 200 MG TABLET PO SCH (09:51)
[2018-09-05] MEDS: OXYCODONE HCL/APAP 5MG/325MG TABLET PO PRN ×2 (17:44→21:35)
[2018-09-05] MEDS: WARFARIN 1 MG TABLET PO SCH (17:44)
[2018-09-05] MEDS: ATORVASTATIN 20 MG TABLET PO SCH (21:14)
[2018-09-05] MEDS: POLYETHYLENE GLY 17 GM PACKET PO PRN (21:14)
[2018-09-05] MEDS: LEVEMIR FLEXTOUCH 100 UNIT/ML INSULIN PEN SQ SCH (21:14)
[2018-09-05] MEDS: RANITIDINE HCL 150 MG TABLET PO SCH (21:14)
[2018-09-06] MEDS: LEVOTHYROXINE SODIUM 125 MCG TABLET PO SCH ×2 (05:22→06:25)
[2018-09-06] MEDS: NOVOLOG FLEXPEN (INSULIN ASPART) 100 UNITS/ML SQ SCH ×4 (08:04→22:43)
[2018-09-06] MEDS: ENOXAPARIN 100 MG/ML SYR SQ SCH (10:06)
[2018-09-06] MEDS: AMIODARONE HCL 200 MG TABLET PO SCH (10:06)
[2018-09-06] MEDS: SENNOSIDES/DOCUSATE SODIUM UD CAPSULE PO SCH ×2 (10:06→22:04)
[2018-09-06] MEDS: OXYCODONE HCL/APAP 5MG/325MG TABLET PO PRN ×2 (10:07→22:04)
[2018-09-06 10:23] LABS: HEMATOCRIT 40.3 % (42.0-52.0); HEMOGLOBIN 12.5 gm/dl (14.0-18.0); MEAN CELL VOLUME 93.7 fl (81-97); MEAN PLATELET VOLUME 10.6 fl (7.4-10.4); PLATELET COUNT 163 K/uL (130-400); RED CELL DISTRIBUTION WIDTH 17.1 % (11.5-14.5); WHITE BLOOD COUNT W/O DIFF 6.5 K/uL (4.2-12.2)
[2018-09-06 10:33] LABS: INR 1.2; PROTHROMBIN TIME (PATIENT) 11.8 SECONDS (9.5-12.1)
[2018-09-06] MEDS: ALBUTEROL SULFATE (0.083%) 2.5 MG/3 ML NEB INH PRN (11:19)
[2018-09-06] MEDS: BREO (FLUTICASONE/VILANTEROL) 200MCG/25MCG INHALER INH SCH (11:22)
[2018-09-06] MEDS: WARFARIN 1 MG TABLET PO SCH (16:18)
[2018-09-06] MEDS: ATORVASTATIN 20 MG TABLET PO SCH (22:04)
[2018-09-06] MEDS: RANITIDINE HCL 150 MG TABLET PO SCH (22:04)
[2018-09-06] MEDS: POLYETHYLENE GLY 17 GM PACKET PO PRN (22:42)
[2018-09-06] MEDS: LEVEMIR FLEXTOUCH 100 UNIT/ML INSULIN PEN SQ SCH (22:45)
[2018-09-07] MEDS: LEVOTHYROXINE SODIUM 125 MCG TABLET PO SCH (07:47)
[2018-09-07] MEDS: OXYCODONE HCL/APAP 5MG/325MG TABLET PO PRN ×2 (07:47→14:20)
[2018-09-07] MEDS: NOVOLOG FLEXPEN (INSULIN ASPART) 100 UNITS/ML SQ SCH (07:51)
[2018-09-07] MEDS: ENOXAPARIN 100 MG/ML SYR SQ SCH (09:15)
[2018-09-07] MEDS: SENNOSIDES/DOCUSATE SODIUM UD CAPSULE PO SCH ×2 (09:15→22:08)
[2018-09-07] MEDS: AMIODARONE HCL 200 MG TABLET PO SCH (09:15)
[2018-09-07] MEDS: ALBUTEROL SULFATE (0.083%) 2.5 MG/3 ML NEB INH PRN (10:28)
[2018-09-07] MEDS: BREO (FLUTICASONE/VILANTEROL) 200MCG/25MCG INHALER INH SCH (10:35)
[2018-09-07] MEDS: TORSEMIDE 20 MG TABLET PO SCH ×2 (11:05→16:03)
[2018-09-07] MEDS: DOXYCYCLINE HYCLATE 100 MG CAPSULE PO SCH ×2 (11:06→22:08)
--- NOTE | 2018-09-07 11:18 | Physician Progress Note ---
Subjective - Date Date of Progress Note: 09/07/18 - Admitting Diagnosis Diagnosis: Deconditioning secondary to fluid overload - Subjective Nursing Care Plan Problem List Activity Intolerance (Swing Bed) Start: 09/02/18 17: 44 Freq: Status: Active Protocol: Created 09/02/18 17:44 SS (Rec: 09/02/18 17:44 SS [id number]) Altered Thought Process (Fall Risk) Start: 09/02/18 17: 46 Freq: Status: Active Protocol: Created 09/02/18 17:46 SS (Rec: 09/02/18 17:46 SS [id number]) Impaired Mobility (Fall Risk) Start: 09/02/18 17: 46 Freq: Status: Active Protocol: Created 09/02/18 17:46 SS (Rec: 09/02/18 17:46 SS [id number]) Knowledge Deficit (Swing Bed) Start: 09/02/18 17: 44 Freq: Status: Active Protocol: Created 09/02/18 17:44 SS (Rec: 09/02/18 17:44 SS [id number]) Pain (Swing Bed) Start: 09/02/18 17: 44 Freq: Status: Active Protocol: Created 09/02/18 17:44 SS (Rec: 09/02/18 17:44 SS [id number]) Risk for Injury (Fall Risk) Start: 09/02/18 17: 46 Freq: Status: Active Protocol: Created 09/02/18 17:46 SS (Rec: 09/02/18 17:46 SS [id number]) Subjective: 09/07/18: Patient A&O x 4, sitting comfortably in chair. Patient has gone to dialysis twice since admission, tolerating procedure well. Blood sugars have been well-controlled with Levimir, patient has not required any sliding scale coverage since admission. Increasing swelling to legs bilaterally today, will add torsemide 10mg BID on Mondays only, as patient is currently on a //Fri dialysis schedule. Patient is scheduled to see nephrology at dialysis tomorrow as well. Patient also has significant erythema to legs bilaterally, with wound noted on right lateral lower leg. Wound culture obtained, and doxycycline started for history of MRSA infections and ESRD. Patient continues to have daily dressing changes to lower legs bilaterally due to continuous weeping. - Subjective Detail Comment: No additional complaints except as noted below Constitutional: Reports: As per HPI. Denies: Chills, Fever, Malaise Respiratory: Reports: As per HPI. Denies: Cough, Dyspnea Cardiovascular: Reports: As per HPI, Edema. Denies: Chest pain, Dyspnea on exertion Endocrine: Reports: As per HPI Gastrointestinal: Reports: As per HPI. Denies: Abdominal pain Genitourinary: Reports: As per HPI Musculoskeletal: Reports: As per HPI Skin: Reports: As per HPI, Change in color, Rash Neurological: Reports: As per HPI. Denies: Confusion Psychiatric: Reports: As per HPI Hematological/Lymphatic: Reports: As per HPI General - Cognitive Patterns Speech: Normal Thought Process: Intact Thought Content: Normal - Communication Select best description of speech pattern: Clear Speech Ability to express ideas and wants: Understood Understanding verbal content: Understands - Mood and Behavior Patterns Appearance: Well Groomed Mood: Normal Attitude: Cooperative Motor Activity: Calm Affect: Appropriate - Physical Functioning Activity Level: Up with assist x1 Turning: With partial assist ROM Ability: Moves all extremities Assistive Devices: 2 Wheel Walker Ambulation Ability: Needs Assist Bed Mobility: Independent Transfer Ability: Needs Assist Bathing Ability: Needs Assist Personal Hygiene: Independent Dressing Ability: Needs Assist Eating (Feeding) Ability: Independent Toileting Ability: Needs Assist Administer Own Medication: Independent - Continence Bowel Pattern: Normal for Patient Bladder Pattern: Normal Meds/Allergies - Allergies Allergies Allergy/AdvReac Type Severity Reaction Status Date / Time onion Allergy Intermediate NAUSEA Verified 01/30/16 14:13 rivaroxaban [From Xarelto] AdvReac Severe BRUISING Verified 04/10/18 10:00 - Active Medications Current Medications Albuterol Sulfate () 2.5 mg INH [id number] PRN PRN Reason: DIFFICULTY IN BREATHING Last Admin: 09/07/18 10:28 Dose: 2.5 mg Amiodarone HCl (Pacerone) 200 mg PO DAILY [facility] Last Admin: 09/07/18 09:15 Dose: 200 mg Atorvastatin Calcium (Lipitor) 20 mg PO QHS [facility] Last Admin: 09/06/18 22:04 Dose: 20 mg Doxycycline Hyclate (Vibramycin) 100 mg PO BID [facility] Last Admin: 09/07/18 11:06 Dose: 100 mg Enoxaparin Sodium (Lovenox) 100 mg SQ DAILY [facility] Last Admin: 09/07/18 09:15 Dose: 100 mg Insulin Detemir (Levemir Flextouch) 12 unit SQ QHS [facility] Last Admin: 09/06/18 22:45 Dose: 6 unit Levothyroxine Sodium (Synthroid) 125 mcg PO DAILYTHY [facility] Last Admin: 09/07/18 07:47 Dose: 125 mcg Oxycodone/Acetaminophen (Percocet 5-325 Mg Tablet) 1 udtab PO Q4H PRN PRN Reason: PAIN - MOD TO SEVERE (5-10) Stop: 09/09/18 15:22 Last Admin: 09/07/18 07:47 Dose: 1 udtab Polyethylene Glycol (Miralax) 17 gm PO DAILY PRN PRN Reason: CONSTIPATION Last Admin: 09/06/18 22:42 Dose: 17 gm Ranitidine HCl (Zantac) 150 mg PO QHS [facility] Last Admin: 09/06/18 22:04 Dose: 150 mg Senna/Docusate Sodium (Senna Plus) 2 each PO BID [facility] Last Admin: 09/07/18 09:15 Dose: 2 each Torsemide (Torsemide) 10 mg PO Mo [facility] Last Admin: 09/07/18 11:05 Dose: 10 mg Torsemide (Torsemide) 10 mg PO Mo [facility] Warfarin Sodium (Coumadin) 2 mg PO TuSa [facility] Last Admin: 09/05/18 17:44 Dose: 2 mg Warfarin Sodium (Coumadin) 3 mg PO SuMoWeThFr [facility] Last Admin: 09/06/18 16:18 Dose: 3 mg Zinc Oxide (Desitin) 28.35 gm TOP ASDIR PRN PRN Reason: RASH Objective - Vital Signs Vital Signs: Vital Signs - Last 24 Hrs Temp Pulse Pulse Resp BP Pulse Ox 09/07/18 10:29 82 16 96 09/07/18 08:00 97.8 F 81 18 100/56 94 L 09/06/18 20:00 97.6 F 82 18 101/61 97 09/06/18 11:33 84 20 97 - General General Appearance: Alert, Oriented x3, Cooperative - Head Head exam: Atraumatic - Eye Eye exam: Normal appearance - ENT Mouth exam: Normal external inspection, Tongue normal - Neck Neck exam: Normal inspection - Respiratory Respiratory exam: Normal lung sounds bilaterally. negative: Respiratory distress - Cardiovascular Cardiovascular Exam: Regular rate, Normal rhythm, Normal heart sounds Peripheral Pulses: 2+: Radial (R), Radial (L) - GI/Abdominal GI/Abdominal exam: Soft, Normal bowel sounds. negative: Tenderness - Rectal Rectal exam: Deferred - exam: Deferred - Extremities Extremities exam: Other (bilateral lower extremity pitting edema, weeping, signficant erythema to BLE, worsened from yesterday) - Neurological Neurological exam: Oriented X3 - Psychiatric Psychiatric exam: Normal affect, Normal mood - Skin Skin exam: Abrasion (left elbow skin tear; RLE lateral abrasion), Other (stage II pressure ulcer on sacrum) H&P Results - Labs Result Diagrams: 09/06/18 10:06 09/06/18 10:06 Labs Last 24 Hours: Laboratory Results - last 24 hr 09/06/18 09/06/18 09/06/18 19:03 19:17 22:15 POC Glucose 123 H 148 H 169 H 09/07/18 07:30 POC Glucose 98 Discharge Potential - Discharge Needs Patient Discharge Plan Description: Return Home Plan - Swing Bed Certification Initial Certification Due: 09/02/18 14 Day Re-Cert Due: 09/16/18 44 Day Re-Cert Due: 10/16/18 74 Day Re-Cert Due: 11/15/18 - Detailed Diagnosis and Plan (1) Physical deconditioning Current Visit: No Status: Acute Base Code: R53.81 - OTHER MALAISE Priority : High Comment: 09/07/18: -Secondary to multiple hospitalizations, worsening of ESRD, dialysis, and CHF -PT/OT evaluation and treatment. (2) ESRD (end stage renal disease) Current Visit: Yes Status: Acute Base Code: N18.6 - END STAGE RENAL DISEASE Comment: 09/07/18: -Dialysis T//Fri -Chip cath placed in right subclavian -Follow-up with nephrology Friday (09/08/18) -Torsemide 10mg BID on Mondays only - Daily weight - Fluid restrictions - I&Os (3) Cellulitis Current Visit: No Status: Acute Qualifiers: Base Code: L03.90 - CELLULITIS, UNSPECIFIED Comment: 09/06/18: significant erythema noted to BLE, worsened from yesterday and warm to the touch. Patient reports increasing pain. - Wound noted on RLE lateral surface, wound culture obtained - Doxycycline 100mg BID due to history of MRSA infections and ESRD - Will continue to monitor, daily dressing changes (4) Atrial fibrillation Current Visit: No Status: Acute Base Code: I48.91 - UNSPECIFIED ATRIAL FIBRILLATION Comment: 09/07/18: -Continue Amiodarone 200mg q.am -Has AICD/PPM -Briding to coumadin with lovenox for antiphospholipid syndrome; pharmacy to dose (5) Bilateral lower extremity edema Current Visit: No Status: Acute Base Code: R60.0 - LOCALIZED EDEMA Comment : 09/07/18: -chronic lower extremity edema with clear weeping discharge -Dressing changes daily -Dialysis to help with fluid overload - Torsemide 10mg BID mondays (6) COPD (chronic obstructive pulmonary disease) Current Visit: No Status: Acute Base Code: J44.9 - CHRONIC OBSTRUCTIVE PULMONARY DISEASE, UNSPECIFIED Comment: 09/07/18: -Continue Breo -Continue Albuterol PRN (7) CHF (congestive heart failure) Current Visit: No Status: Chronic Base Code: I50.9 - HEART FAILURE, UNSPECIFIED Comment: 09/07/18: -2L Fluid restriction -Daily Weight -I & O (8) Diabetes Current Visit: No Status: Chronic Qualifiers: Diabetes mellitus type: type 2 Diabetes mellitus long term care social worker insulin use: with long term care social worker use Diabetes mellitus complication status: with hyperglycemia Qualified Code(s): E11.65 - Type 2 diabetes mellitus with hyperglycemia; Z79.4 - senior living (current) use of insulin Base Code: E11.9 - TYPE 2 DIABETES MELLITUS WITHOUT COMPLICATIONS Comment: 09/07/18: -Continue Levemir 10 units daily -Accuchecks AC & HS -ADA diet (9) DVT prophylaxis Current Visit: No Status: Acute Base Code: [id number] - Comment: 09/07/18: patient is high risk due to age, hospitalization, and decreased mobility - continue bridging to coumadin with lovenox, pharmacy to dose (10) Full code status Current Visit: No Status: Acute Base Code: Z78.9 - OTHER SPECIFIED HEALTH STATUS Comment: 09/07/18: Full code status
--- NOTE | 2018-09-07 11:31 | Physical Therapy Tx Note ---
Physical Therapy Tx Note - Treatment Note Tolerated: Good Total Time Spent With Patient: 15 Physical Therapy Tx Note: Detail (The patient was up in chair when PT arrived. The patient reported he ambulated several times over the weekend. Discussed with daughter and patient car transfer technique. PT to assist the patient this pm with car transfers to friend's car due to the patient's difficulty with transferring to and from his truck following diaylsis. The patient ambulated with supervision for safety with front wheeled walker 134 feet x1 with one standing rest period. The patient continues to complain of right groin pain with ambulation and exhibits occasional R foot drag. Will continue PT treatment this pm for LE exercises in Rehab gym and car transfer.) Physical Therapy Problem List: Detail (1) Decreased LE strength 2) Decreased ability to complet physical activity 3) R groin pain which is limiting the patient's function 4) Assistance with transfers including car transfer and sit to stand from lower surface) Physical Therapy Goals: 1) Increase LE strength 1/3 muscle grade to improve the patient's ablity to complete functional activities. 2) The patient will ambulate on stairs with supervision for safety. 3) The patient will ambulate distances of 200 feet plus with assistive device independently. 4) The patient will be independent with all transfers. 5) The patient will tolerate 30 to 45 minutes of physical activity with one rest period. Physical Therapy Plan: PT M-F 1-2 times a day for ambulation, LE strengthening exercise, balance exercises and mobility.
--- NOTE | 2018-09-07 13:55 | Occupational Therapy Tx Note ---
Occupational Therapy Tx Note - Treatment Note Tolerated: Good Total Time Spent With Patient: 40 (ther ex) Occupational Therapy Treatment Note: Detail (S: Pt up in chair, ready for OT. Pt reports shoulders felt looser over the last couple of days. O: Sit to stand and amb 10 feet to wheelchair with 2 wheeled walker. Stand to sit Ind and transported to rehab via wheelchair. Pt completed doroteo UE exercises including passive pulleys for shoulder flexion, abduction and horiz ab/ adduction x 3 min each. Shoulder ladder doroteo shoulder flexion x 5 reps each with tactile cues for correct positioning. PROM and sustained stretching completed in supine to doroteo shoulder flexion, abduction/pec stretch, ER and IR to pts tolerance. MTT to doroteo ant and posterior shoulders with focus on pecs and bicep tendons. Passive sustained stretch to doroteo shoulders to decrease forward shoulder posture (in supine). Pt educated re: posture and shoulder retraction in sitting, he was able to partially demonstrate correct positioning although he has significant limitations due to muscle tightness and arthritis. A: Significant crepitus in right shoulder and tightness bilaterally causing increased pain and decreased function.) Occupational Therapy Problem List: Detail (1. Decreased UE ROM and strength. 2. Decreased tolerance to activity needed for safe and Ind ADLs. 3. Need to further assess ADLs.) Occupational Therapy Goals: 1. Pt will improve doroteo shoulder AROM by 15 degrees to allow improve Ind with overhead ADLs. 2. Pt will improve doroteo bicep strength to 4+/5. 3. Pt will demonstrate improved endurance to allow safe and Ind self cares. Prognosis: Good Occupational Therapy Plan: OT 2-4 days per week to address UE ROM and strength, endurance and ADLs.
--- NOTE | 2018-09-07 15:10 | Physical Therapy Tx Note ---
Physical Therapy Tx Note - Treatment Note Tolerated: Good Total Time Spent With Patient: 30 Physical Therapy Tx Note: Detail (The patient completed Nu step x 12 minutes. The patient completed a car transfer to lower vehicle with CG and moderate assist to lift LE's in. The patient's friend observed and assisted with transfer.) Physical Therapy Problem List: Detail (1) Decreased LE strength 2) Decreased ability to complet physical activity 3) R groin pain which is limiting the patient's function 4) Assistance with transfers including car transfer and sit to stand from lower surface) Physical Therapy Goals: 1) Increase LE strength 1/3 muscle grade to improve the patient's ablity to complete functional activities. 2) The patient will ambulate on stairs with supervision for safety. 3) The patient will ambulate distances of 200 feet plus with assistive device independently. 4) The patient will be independent with all transfers. 5) The patient will tolerate 30 to 45 minutes of physical activity with one rest period. Physical Therapy Plan: PT M-F 1-2 times a day for ambulation, LE strengthening exercise, balance exercises and mobility.
[2018-09-07] MEDS: WARFARIN 1 MG TABLET PO SCH (16:03)
[2018-09-07] MEDS: RANITIDINE HCL 150 MG TABLET PO SCH (22:08)
[2018-09-07] MEDS: ATORVASTATIN 20 MG TABLET PO SCH (22:08)
[2018-09-07] MEDS: LEVEMIR FLEXTOUCH 100 UNIT/ML INSULIN PEN SQ SCH (22:10)
[2018-09-08] MEDS: ALBUTEROL SULFATE (0.083%) 2.5 MG/3 ML NEB INH PRN ×2 (01:25→10:08)
[2018-09-08] MEDS: LEVOTHYROXINE SODIUM 125 MCG TABLET PO SCH (06:19)
[2018-09-08] MEDS: AMIODARONE HCL 200 MG TABLET PO SCH (09:46)
[2018-09-08] MEDS: SENNOSIDES/DOCUSATE SODIUM UD CAPSULE PO SCH ×2 (09:46→21:53)
[2018-09-08] MEDS: ENOXAPARIN 100 MG/ML SYR SQ SCH (09:46)
[2018-09-08] MEDS: DOXYCYCLINE HYCLATE 100 MG CAPSULE PO SCH ×2 (09:46→21:53)
[2018-09-08] MEDS: OXYCODONE HCL/APAP 5MG/325MG TABLET PO PRN ×2 (09:47→17:37)
[2018-09-08] MEDS: BREO (FLUTICASONE/VILANTEROL) 200MCG/25MCG INHALER INH SCH (10:08)
[2018-09-08] MEDS: WARFARIN 1 MG TABLET PO SCH (17:38)
[2018-09-08] MEDS: RANITIDINE HCL 150 MG TABLET PO SCH (21:53)
[2018-09-08] MEDS: LEVEMIR FLEXTOUCH 100 UNIT/ML INSULIN PEN SQ SCH (21:53)
[2018-09-08] MEDS: ATORVASTATIN 20 MG TABLET PO SCH (21:53)
[2018-09-09] MEDS: OXYCODONE HCL/APAP 5MG/325MG TABLET PO PRN ×3 (02:10→17:16)
[2018-09-09] MEDS: LEVOTHYROXINE SODIUM 125 MCG TABLET PO SCH (06:21)
[2018-09-09 09:44] LABS: INR 1.5; PROTHROMBIN TIME (PATIENT) 15.3 SECONDS (9.5-12.1)
[2018-09-09] MEDS: BREO (FLUTICASONE/VILANTEROL) 200MCG/25MCG INHALER INH SCH (10:20)
[2018-09-09 10:28] LABS: ALB/GLOB RATIO 1.4 (1.1-1.8); ALBUMIN 3.7 g/dL (4.0-5.0); BILIRUBIN,TOTAL 0.5 mg/dL (0.2-1.0); TOTAL PROTEIN 6.4 g/dL (6.6-8.7)
[2018-09-09] MEDS: ALBUTEROL SULFATE (0.083%) 2.5 MG/3 ML NEB INH PRN (10:36)
[2018-09-09] MEDS: AMIODARONE HCL 200 MG TABLET PO SCH (10:51)
[2018-09-09] MEDS: DOXYCYCLINE HYCLATE 100 MG CAPSULE PO SCH ×2 (10:51→21:51)
[2018-09-09] MEDS: SENNOSIDES/DOCUSATE SODIUM UD CAPSULE PO SCH ×2 (10:52→21:50)
[2018-09-09] MEDS: ENOXAPARIN 100 MG/ML SYR SQ SCH (11:44)
--- NOTE | 2018-09-09 11:54 | Physical Therapy Tx Note ---
Physical Therapy Tx Note - Treatment Note Tolerated: Good Total Time Spent With Patient: 20 Physical Therapy Tx Note: Detail (Patient states right groin sore today. Patient transferred sit to and from stand independently. Patient declined ambulating on stairs today due to right groin pain. Patient ambulated 418 feet with wheeled walker SBA x1. Patient required several standing rest breaks due to fatigue and pain. Patient tolerated treatment well. Patient reports some nausea with ambulation. Patient was left seated in chair with call light within reach.) Physical Therapy Problem List: Detail (1) Decreased LE strength 2) Decreased ability to complet physical activity 3) R groin pain which is limiting the patient's function 4) Assistance with transfers including car transfer and sit to stand from lower surface) Physical Therapy Goals: 1) Increase LE strength 1/3 muscle grade to improve the patient's ablity to complete functional activities. 2) The patient will ambulate on stairs with supervision for safety. 3) The patient will ambulate distances of 200 feet plus with assistive device independently. 4) The patient will be independent with all transfers. 5) The patient will tolerate 30 to 45 minutes of physical activity with one rest period. Prognosis: Good Physical Therapy Plan: PT M-F 1-2 times a day for ambulation, LE strengthening exercise, balance exercises and mobility.
[2018-09-09] MEDS: ONDANSETRON 4 MG ODT TABLET SL PRN (12:07)
--- NOTE | 2018-09-09 14:04 | Occupational Therapy Tx Note ---
Occupational Therapy Tx Note - Treatment Note Tolerated: Good Total Time Spent With Patient: 35 (ther ex) Occupational Therapy Treatment Note: Detail (S: Pt reports shoulders have been feeling better overall. O: Sit to stand and amb to wheelchair with 2 wheeled walker Indly, transported to rehab gym via wheelchair. Pt completed 3 min each of passive pulleys for ozzy shoulder flexion, abduction and horiz ab/adduction. Shoulder ladder x 5 reps each - able to reach 13 on right side and 14 on left side. Ozzy shoulder stretches passively on mat table with HOB raised including shoulder flexion, abduction, pec stretch, ER and IR with sustained hold and arm pull. MTT to ozzy shoulders with focus on anterior shoulder musculature. Pt left in rehab gym with PT. A: Overall shoulder positioning is improving as well as pain and crepitus.) Occupational Therapy Problem List: Detail (1. Decreased UE ROM and strength. 2. Decreased tolerance to activity needed for safe and Ind ADLs. 3. Need to further assess ADLs.) Occupational Therapy Goals: 1. Pt will improve ozzy shoulder AROM by 15 degrees to allow improve Ind with overhead ADLs. 2. Pt will improve ozzy bicep strength to 4+/5. 3. Pt will demonstrate improved endurance to allow safe and Ind self cares. Prognosis: Good Occupational Therapy Plan: OT 2-4 days per week to address UE ROM and strength, endurance and ADLs.
--- NOTE | 2018-09-09 14:41 | Physical Therapy Tx Note ---
Physical Therapy Tx Note - Treatment Note Tolerated: Good Total Time Spent With Patient: 25 Physical Therapy Tx Note: Detail (The patient had complaints of R groin pain. The patient completed Nu Step x 15minutes. LE strengthening exercises seated: hip marching, blue T-band hip abduction, hamstring curls, LAQ, and hip adductor squeezes all until patient was fatigued.) Physical Therapy Problem List: Detail (1) Decreased LE strength 2) Decreased ability to complet physical activity 3) R groin pain which is limiting the patient's function 4) Assistance with transfers including car transfer and sit to stand from lower surface) Physical Therapy Goals: 1) Increase LE strength 1/3 muscle grade to improve the patient's ablity to complete functional activities. 2) The patient will ambulate on stairs with supervision for safety. 3) The patient will ambulate distances of 200 feet plus with assistive device independently. 4) The patient will be independent with all transfers. 5) The patient will tolerate 30 to 45 minutes of physical activity with one rest period. Physical Therapy Plan: PT M-F 1-2 times a day for ambulation, LE strengthening exercise, balance exercises and mobility.
[2018-09-09] MEDS: AMOX TR/POT CLAV. 500MG/125MG TABLET PO SCH ×2 (15:11→21:51)
[2018-09-09] MEDS: WARFARIN 1 MG TABLET PO SCH (17:11)
[2018-09-09] MEDS: ATORVASTATIN 20 MG TABLET PO SCH (21:50)
[2018-09-09] MEDS: RANITIDINE HCL 150 MG TABLET PO SCH (21:51)
[2018-09-09] MEDS: LEVEMIR FLEXTOUCH 100 UNIT/ML INSULIN PEN SQ SCH (21:53)
[2018-09-10] MEDS: LEVOTHYROXINE SODIUM 125 MCG TABLET PO SCH (06:00)
[2018-09-10] MEDS: OXYCODONE HCL/APAP 5MG/325MG TABLET PO PRN ×2 (10:28→18:06)
[2018-09-10] MEDS: BIFIDOBACTERIUM INFANTIS 4 MG CAPSULE PO SCH (10:29)
[2018-09-10] MEDS: BREO (FLUTICASONE/VILANTEROL) 200MCG/25MCG INHALER INH SCH (10:30)
[2018-09-10] MEDS: ENOXAPARIN 100 MG/ML SYR SQ SCH (10:39)
[2018-09-10] MEDS: SENNOSIDES/DOCUSATE SODIUM UD CAPSULE PO SCH ×2 (10:40→22:12)
[2018-09-10] MEDS: AMOX TR/POT CLAV. 500MG/125MG TABLET PO SCH ×2 (10:40→22:12)
[2018-09-10] MEDS: DOXYCYCLINE HYCLATE 100 MG CAPSULE PO SCH ×2 (10:40→22:12)
[2018-09-10] MEDS: AMIODARONE HCL 200 MG TABLET PO SCH (10:41)
[2018-09-10] MEDS: WARFARIN 1 MG TABLET PO SCH (18:02)
[2018-09-10] MEDS: LEVEMIR FLEXTOUCH 100 UNIT/ML INSULIN PEN SQ SCH (22:12)
[2018-09-10] MEDS: RANITIDINE HCL 150 MG TABLET PO SCH (22:12)
[2018-09-10] MEDS: ATORVASTATIN 20 MG TABLET PO SCH (22:12)
[2018-09-10] MEDS: ALBUTEROL SULFATE (0.083%) 2.5 MG/3 ML NEB INH PRN (22:15)
[2018-09-11] MEDS: LEVOTHYROXINE SODIUM 125 MCG TABLET PO SCH (06:28)
[2018-09-11 09:42] LABS: INR 1.7; PROTHROMBIN TIME (PATIENT) 16.9 SECONDS (9.5-12.1)
[2018-09-11] MEDS: BREO (FLUTICASONE/VILANTEROL) 200MCG/25MCG INHALER INH SCH (10:07)
[2018-09-11] MEDS: ALBUTEROL SULFATE (0.083%) 2.5 MG/3 ML NEB INH PRN (10:07)
[2018-09-11] MEDS: AMOX TR/POT CLAV. 500MG/125MG TABLET PO SCH ×2 (10:52→21:55)
[2018-09-11] MEDS: BIFIDOBACTERIUM INFANTIS 4 MG CAPSULE PO SCH (10:52)
[2018-09-11] MEDS: ENOXAPARIN 100 MG/ML SYR SQ SCH (10:53)
[2018-09-11] MEDS: SENNOSIDES/DOCUSATE SODIUM UD CAPSULE PO SCH ×2 (10:54→21:52)
[2018-09-11] MEDS: AMIODARONE HCL 200 MG TABLET PO SCH (10:54)
[2018-09-11] MEDS: DOXYCYCLINE HYCLATE 100 MG CAPSULE PO SCH ×2 (10:54→21:52)
--- NOTE | 2018-09-11 11:44 | Physical Therapy Tx Note ---
Physical Therapy Tx Note - Treatment Note Tolerated: Good Total Time Spent With Patient: 20 Physical Therapy Tx Note: Detail (The patient was up in chair when PT arrived. The patient complained of bilateral quad region pain R LE greater then L. The patient complained of R groin after LE strengthening exercises. The patient ambulated with front wheeled walker a distance of 170 feet x 1 with supervision for safety and one rest period (in standing). Proper isolation techniques were followed . The patient completed the following bilateral LE strengthening exercises in standing to walker: Hip extension, hip abduction, marching, knee flexion and squats all x 10 reps. The patient was left in chair with call light in place.) Physical Therapy Problem List: Detail (1) Decreased LE strength 2) Decreased ability to complet physical activity 3) R groin pain which is limiting the patient's function 4) Assistance with transfers including car transfer and sit to stand from lower surface) Physical Therapy Goals: 1) Increase LE strength 1/3 muscle grade to improve the patient's ablity to complete functional activities. 2) The patient will ambulate on stairs with supervision for safety. 3) The patient will ambulate distances of 200 feet plus with assistive device independently. 4) The patient will be independent with all transfers. 5) The patient will tolerate 30 to 45 minutes of physical activity with one rest period. Physical Therapy Plan: PT M-F 1-2 times a day for ambulation, LE strengthening exercise, balance exercises and mobility.
[2018-09-11] MEDS: OXYCODONE HCL/APAP 5MG/325MG TABLET PO PRN ×2 (11:45→21:54)
--- NOTE | 2018-09-11 13:49 | Physical Therapy Tx Note ---
Physical Therapy Tx Note - Treatment Note Tolerated: Good Total Time Spent With Patient: 30 Physical Therapy Tx Note: Detail (The patient ambulated 67 feet x 1 with front wheeled walker with supervision. The patient ambulated on 3 steps with use of one railing and walker with CG of 1. The patient winced in pain when descended with the R LE. The patient was taken to Rehab dept. and completed 15 minutes on the [place]. 1) Physical Therapy Problem List: Detail (1) Decreased LE strength 2) Decreased ability to complet physical activity 3) R groin pain which is limiting the patient's function 4) Assistance with transfers including car transfer and sit to stand from lower surface) Physical Therapy Goals: 1) Increase LE strength 1/3 muscle grade to improve the patient's ablity to complete functional activities. 2) The patient will ambulate on stairs with supervision for safety. 3) The patient will ambulate distances of 200 feet plus with assistive device independently. 4) The patient will be independent with all transfers. 5) The patient will tolerate 30 to 45 minutes of physical activity with one rest period. Physical Therapy Plan: PT M-F 1-2 times a day for ambulation, LE strengthening exercise, balance exercises and mobility.
--- NOTE | 2018-09-11 14:40 | Occupational Therapy Tx Note ---
Occupational Therapy Tx Note - Treatment Note Tolerated: Good Total Time Spent With Patient: 35 (THER EX) Occupational Therapy Treatment Note: Detail (S: Pt reports he feels his arms are getting stronger especially when pushing up from chairs. O: Pt seen in rehab gym. Passive pulleys for shoulder flexion, abduction and IR/ER x 4 min each. Shoulder ladder x 5 reps for shoulder flexion- to rung 12 on right and rung 14 on left. PROM in supine with HOB at 45 degrees for shoulder flexion, abduction, pec stretch and IR/ER to patient tolerance with sustained stretch. Passive scapular pro and retraction x 5 reps, arm pull to tolerance and MTT/MFR to doroteo biceps and anterior shoulders. AAROM x 10 reps doroteo shoulder flexion with minimal assist for gentle strengthening. Pt educated re: ceiling punches to strengthen anterior shoulder while seated. Pt verbalized learning. Pt transported back to room via wheelchair and left up in chair. A: Shoulder stabilization improving with less crepitus in right shoulder.) Occupational Therapy Problem List: Detail (1. Decreased UE ROM and strength. 2. Decreased tolerance to activity needed for safe and Ind ADLs. 3. Need to further assess ADLs.) Occupational Therapy Goals: 1. Pt will improve doroteo shoulder AROM by 15 degrees to allow improve Ind with overhead ADLs. 2. Pt will improve doroteo bicep strength to 4+/5. 3. Pt will demonstrate improved endurance to allow safe and Ind self cares. Prognosis: Good Occupational Therapy Plan: OT 2-4 days per week to address UE ROM and strength, endurance and ADLs.
[2018-09-11] MEDS ORDERED: WARFARIN 5 MG TAB PO SCH (16:00)
[2018-09-11] MEDS: LEVEMIR FLEXTOUCH 100 UNIT/ML INSULIN PEN SQ SCH (21:49)
[2018-09-11] MEDS: ATORVASTATIN 20 MG TABLET PO SCH (21:51)
[2018-09-11] MEDS: RANITIDINE HCL 150 MG TABLET PO SCH (21:52)
[2018-09-12] MEDS: LEVOTHYROXINE SODIUM 125 MCG TABLET PO SCH (06:47)
[2018-09-12] MEDS: OXYCODONE HCL/APAP 5MG/325MG TABLET PO PRN ×3 (09:53→22:38)
[2018-09-12] MEDS: BIFIDOBACTERIUM INFANTIS 4 MG CAPSULE PO SCH (09:54)
[2018-09-12] MEDS: SENNOSIDES/DOCUSATE SODIUM UD CAPSULE PO SCH ×2 (09:54→22:35)
[2018-09-12] MEDS: ENOXAPARIN 100 MG/ML SYR SQ SCH (09:54)
[2018-09-12] MEDS: AMOX TR/POT CLAV. 500MG/125MG TABLET PO SCH ×2 (09:54→22:35)
[2018-09-12] MEDS: AMIODARONE HCL 200 MG TABLET PO SCH (09:54)
[2018-09-12] MEDS: DOXYCYCLINE HYCLATE 100 MG CAPSULE PO SCH ×2 (09:54→22:34)
[2018-09-12] MEDS: ALBUTEROL SULFATE (0.083%) 2.5 MG/3 ML NEB INH PRN ×2 (10:02→23:06)
[2018-09-12] MEDS: BREO (FLUTICASONE/VILANTEROL) 200MCG/25MCG INHALER INH SCH (10:02)
[2018-09-12] MEDS: ONDANSETRON 4 MG ODT TABLET SL PRN (10:59)
[2018-09-12] MEDS: WARFARIN 1 MG TABLET PO SCH (17:23)
[2018-09-12] MEDS: LEVEMIR FLEXTOUCH 100 UNIT/ML INSULIN PEN SQ SCH (22:29)
[2018-09-12] MEDS: RANITIDINE HCL 150 MG TABLET PO SCH (22:34)
[2018-09-12] MEDS: ATORVASTATIN 20 MG TABLET PO SCH (22:35)
[2018-09-13] MEDS: LEVOTHYROXINE SODIUM 125 MCG TABLET PO SCH (06:25)
[2018-09-13] MEDS: OXYCODONE HCL/APAP 5MG/325MG TABLET PO PRN ×4 (06:26→19:52)
[2018-09-13 06:38] LABS: INR 2.2; PROTHROMBIN TIME (PATIENT) 21.3 SECONDS (9.5-12.1)
--- NOTE | 2018-09-13 09:33 | Physician Progress Note ---
Subjective - Date Date of Progress Note: 09/13/18 - Admitting Diagnosis Diagnosis: Deconditioning secondary to fluid overload - Subjective Nursing Care Plan Problem List Activity Intolerance (Swing Bed) Start: 09/02/18 17: 44 Freq: Status: Active Protocol: Created 09/02/18 17:44 SS (Rec: 09/02/18 17:44 SS [id number]) Altered Thought Process (Fall Risk) Start: 09/02/18 17: 46 Freq: Status: Active Protocol: Created 09/02/18 17:46 SS (Rec: 09/02/18 17:46 SS [id number]) Impaired Mobility (Fall Risk) Start: 09/02/18 17: 46 Freq: Status: Active Protocol: Created 09/02/18 17:46 SS (Rec: 09/02/18 17:46 SS [id number]) Knowledge Deficit (Swing Bed) Start: 09/02/18 17: 44 Freq: Status: Active Protocol: Created 09/02/18 17:44 SS (Rec: 09/02/18 17:44 SS [id number]) Pain (Swing Bed) Start: 09/02/18 17: 44 Freq: Status: Active Protocol: Created 09/02/18 17:44 SS (Rec: 09/02/18 17:44 SS [id number]) Risk for Injury (Fall Risk) Start: 09/02/18 17: 46 Freq: Status: Active Protocol: Created 09/02/18 17:46 SS (Rec: 09/02/18 17:46 SS [id number]) Subjective: The patient is doing well but complains that he has not urinated in two days. He still has some weeping of his legs but otherwise is doing well. General - Cognitive Patterns Speech: Normal Thought Process: Intact Thought Content: Normal - Communication Select best description of speech pattern: Clear Speech Ability to express ideas and wants: Understood Understanding verbal content: Understands - Mood and Behavior Patterns Appearance: Well Groomed Mood: Normal Attitude: Cooperative Motor Activity: Calm Affect: Appropriate - Physical Functioning Activity Level: Up with assist x1 Turning: With partial assist ROM Ability: Moves all extremities Assistive Devices: 2 Wheel Walker Ambulation Ability: Needs Assist Bed Mobility: Needs Assist Transfer Ability: Needs Assist Bathing Ability: Needs Assist Personal Hygiene: Independent Dressing Ability: Independent Eating (Feeding) Ability: Independent Toileting Ability: Independent Administer Own Medication: Independent - Continence Bowel Pattern: Normal for Patient Bladder Pattern: Normal Meds/Allergies - Allergies Allergies Allergy/AdvReac Type Severity Reaction Status Date / Time onion Allergy Intermediate NAUSEA Verified 01/30/16 14:13 rivaroxaban [From Xarelto] AdvReac Severe BRUISING Verified 04/10/18 10:00 - Active Medications Current Medications Albuterol Sulfate () 2.5 mg INH RESP.[id number].WA PRN PRN Reason: DIFFICULTY IN BREATHING Last Admin: 09/12/18 23:06 Dose: 2.5 mg Amiodarone HCl (Pacerone) 200 mg PO DAILY [facility] Last Admin: 09/12/18 09:54 Dose: 200 mg Amoxicillin/Clavulanate Potassium (Augmentin 500mg/125mg) 1 each PO BID [facility] Last Admin: 09/12/18 22:35 Dose: 1 each Atorvastatin Calcium (Lipitor) 20 mg PO QHS [facility] Last Admin: 09/12/18 22:35 Dose: 20 mg Doxycycline Hyclate (Vibramycin) 100 mg PO BID [facility] Last Admin: 09/12/18 22:34 Dose: 100 mg Insulin Detemir (Levemir Flextouch) 12 unit SQ QHS [facility] Last Admin: 09/12/18 22:29 Dose: 6 unit Levothyroxine Sodium (Synthroid) 125 mcg PO DAILYTHY [facility] Last Admin: 09/13/18 06:25 Dose: 125 mcg Ondansetron HCl (Zofran Odt) 4 mg SL Q6H PRN PRN Reason: NAUSEA/VOMITING Last Admin: 09/12/18 10:59 Dose: 4 mg Oxycodone/Acetaminophen (Percocet 5-325 Mg Tablet) 1 udtab PO Q4H PRN PRN Reason: PAIN - MOD TO SEVERE (5-10) Last Admin: 09/13/18 06:26 Dose: 1 udtab Polyethylene Glycol (Miralax) 17 gm PO DAILY PRN PRN Reason: CONSTIPATION Last Admin: 09/06/18 22:42 Dose: 17 gm Ranitidine HCl (Zantac) 150 mg PO QHS [facility] Last Admin: 09/12/18 22:34 Dose: 150 mg Senna/Docusate Sodium (Senna Plus) 2 each PO BID [facility] Last Admin: 09/12/18 22:35 Dose: 2 each Torsemide (Torsemide) 10 mg PO Mo [facility] Last Admin: 09/07/18 11:05 Dose: 10 mg Torsemide (Torsemide) 10 mg PO [facility] Last Admin: 09/07/18 16:03 Dose: 10 mg Warfarin Sodium (Coumadin) 2 mg PO TuSa [facility] Last Admin: 09/12/18 17:23 Dose: Not Given Warfarin Sodium (Coumadin) 3 mg PO SuMoWeThFr [facility] Last Admin: 09/10/18 18:02 Dose: 3 mg Zinc Oxide (Desitin) 28.35 gm TOP ASDIR PRN PRN Reason: RASH Objective - Vital Signs Vital Signs: Vital Signs - Last 24 Hrs Temp Pulse Pulse Resp BP BP Pulse Ox 09/12/18 23:06 80 20 09/12/18 20:00 98.1 F 81 16 91/77 98 09/12/18 17:00 81 18 105/60 92 L 09/12/18 10:02 80 18 99 - General General Appearance: Alert, Oriented x3, Cooperative - Head Head exam: Atraumatic - Eye Eye exam: Normal appearance - ENT Mouth exam: Normal external inspection, Tongue normal - Neck Neck exam: Normal inspection - Respiratory Respiratory exam: Normal lung sounds bilaterally. negative: Respiratory distress - Cardiovascular Cardiovascular Exam: Regular rate, Normal rhythm, Normal heart sounds Peripheral Pulses: 2+: Radial (R), Radial (L) - GI/Abdominal GI/Abdominal exam: Soft, Normal bowel sounds. negative: Tenderness - Rectal Rectal exam: Deferred - exam: Deferred - Extremities Extremities exam: Other (bilateral lower extremity pitting edema, weeping, signficant erythema to BLE, worsened from yesterday) - Neurological Neurological exam: Oriented X3 - Psychiatric Psychiatric exam: Normal affect, Normal mood - Skin Skin exam: Abrasion (left elbow skin tear; RLE lateral abrasion), Other (stage II pressure ulcer on sacrum) H&P Results - Labs Result Diagrams: 09/06/18 10:06 09/09/18 09:56 Labs Last 24 Hours: Laboratory Results - last 24 hr 09/13/18 09/13/18 09/13/18 02:38 06:00 07:30 PT 21.3 H INR 2.2 POC Glucose 99 94 Discharge Potential - Discharge Needs Patient Discharge Plan Description: Return Home Plan - Swing Bed Certification Initial Certification Due: 09/02/18 14 Day Re-Cert Due: 09/16/18 44 Day Re-Cert Due: 10/16/18 74 Day Re-Cert Due: 11/15/18 - Detailed Diagnosis and Plan (1) Physical deconditioning Current Visit: No Status: Acute Base Code: R53.81 - OTHER MALAISE Priority : High Comment: 09/13/18: -Secondary to multiple hospitalizations, worsening of ESRD, dialysis, and CHF -PT/OT evaluation and treatment. (2) ESRD (end stage renal disease) Current Visit: Yes Status: Acute Base Code: N18.6 - END STAGE RENAL DISEASE Comment: 09/13/18: -Dialysis T/TH/Sat -Chip cath placed in right subclavian -Torsemide 10mg BID on Mondays only -Daily weight, I/Os, continued fluid restricion. (3) Bilateral lower extremity edema Current Visit: No Status: Acute Base Code: R60.0 - LOCALIZED EDEMA Comment : 09/13/18: - Chronic lower extremity edema with clear weeping discharge -Dressing changes daily -Dialysis T,,S, last session 09/12: 3 liters taken off. -Torsemide 10mg BID Mondays (4) MRSA (methicillin resistant staph aureus) culture positive Current Visit: Yes Status: Acute Base Code: Z22.322 - CARRIER OR SUSPECTED CARRIER OF METHICILLIN RESIS STAPH Comment: 09/13/18: - leg wound culture positive for MRSA, Enteroccocous feacalis, Proteus Mirabilis. - on day #3 of Augmentin. (5) COPD (chronic obstructive pulmonary disease) Current Visit: No Status: Acute Base Code: J44.9 - CHRONIC OBSTRUCTIVE PULMONARY DISEASE, UNSPECIFIED Comment: 09/13/18: -Continue Breo -Continue Albuterol PRN (6) Diabetes Current Visit: No Status: Chronic Qualifiers: Diabetes mellitus type: type 2 Diabetes mellitus intermediate manager insulin use: with intermediate manager use Diabetes mellitus complication status: with hyperglycemia Qualified Code(s): E11.65 - Type 2 diabetes mellitus with hyperglycemia; Z79.4 - intermediate manager (current) use of insulin Base Code: E11.9 - TYPE 2 DIABETES MELLITUS WITHOUT COMPLICATIONS Comment: 09/07/18: -Continue Levemir 10 units daily -Accuchecks AC & HS -ADA diet (7) Atrial fibrillation Current Visit: No Status: Acute Base Code: I48.91 - UNSPECIFIED ATRIAL FIBRILLATION Comment: 09/13/18: -Continue Amiodarone 200mg q.am -Has AICD/PPM (8) DVT prophylaxis Current Visit: No Status: Acute Base Code: [id number] - Comment: 09/13/18: - INR therapeutic - on Coumadin pharmacy to dose. Last Lovenox for bridging administered yesterday. (9) Full code status Current Visit: No Status: Acute Base Code: Z78.9 - OTHER SPECIFIED HEALTH STATUS Comment: 09/07/18: Full code status
[2018-09-13] MEDS: SENNOSIDES/DOCUSATE SODIUM UD CAPSULE PO SCH ×2 (09:39→21:59)
[2018-09-13] MEDS: BIFIDOBACTERIUM INFANTIS 4 MG CAPSULE PO SCH (09:40)
[2018-09-13] MEDS: DOXYCYCLINE HYCLATE 100 MG CAPSULE PO SCH ×2 (09:40→21:59)
[2018-09-13] MEDS: AMIODARONE HCL 200 MG TABLET PO SCH (09:40)
[2018-09-13] MEDS: AMOX TR/POT CLAV. 500MG/125MG TABLET PO SCH ×2 (09:40→21:59)
[2018-09-13] MEDS: POLYETHYLENE GLY 17 GM PACKET PO PRN (09:44)
[2018-09-13] MEDS: BREO (FLUTICASONE/VILANTEROL) 200MCG/25MCG INHALER INH SCH (09:51)
[2018-09-13] MEDS: ALBUTEROL SULFATE (0.083%) 2.5 MG/3 ML NEB INH PRN (09:51)
[2018-09-13] MEDS ORDERED: POLYETHYLENE GLYCOL 3350 238GM BOTTLE PO SCH (10:00)
[2018-09-13] MEDS: MAGNESIUM HYDROXIDE 30 ML UDC PO PRN (15:41)
[2018-09-13] MEDS: WARFARIN 1 MG TABLET PO SCH (16:47)
[2018-09-13] MEDS: ATORVASTATIN 20 MG TABLET PO SCH (21:58)
[2018-09-13] MEDS: RANITIDINE HCL 150 MG TABLET PO SCH (21:59)
[2018-09-13] MEDS: LEVEMIR FLEXTOUCH 100 UNIT/ML INSULIN PEN SQ SCH (22:00)
[2018-09-14] MEDS: OXYCODONE HCL/APAP 5MG/325MG TABLET PO PRN ×3 (00:18→11:38)
[2018-09-14] MEDS: ALBUTEROL SULFATE (0.083%) 2.5 MG/3 ML NEB INH PRN ×2 (04:10→10:42)
[2018-09-14] MEDS: LEVOTHYROXINE SODIUM 125 MCG TABLET PO SCH (06:20)
[2018-09-14 06:37] LABS: BASO % 0.4 % (0-6); EOS % 4.4 % (0-6); GRAN % 78.4 % (47-80); HEMATOCRIT 38.5 % (42.0-52.0); HEMOGLOBIN 12.1 gm/dl (14.0-18.0); LYMPH % 5.6 % (16-45); MEAN CELL VOLUME 91.4 fl (81-97); MEAN CORPUSCULAR HEMOGLOBIN 28.7 pg (27-33); MEAN CORPUSCULAR HGB CONC 31.4 g/dl (32-36); MEAN PLATELET VOLUME 9.8 fl (7.4-10.4); MONO % 11.2 % (0-9); PLATELET COUNT 254 K/uL (130-400); RED BLOOD COUNT 4.21 M/uL (4.40-5.70); RED CELL DISTRIBUTION WIDTH 16.7 % (11.5-14.5); WHITE BLOOD COUNT W/O DIFF 11.2 K/uL (4.2-12.2)
[2018-09-14 06:51] LABS: ALB/GLOB RATIO 1.4 (1.1-1.8); ALBUMIN 3.7 g/dL (4.0-5.0); BILIRUBIN,TOTAL 0.5 mg/dL (0.2-1.0); CREATININE 3.3 mg/dL (0.7-1.2); TOTAL PROTEIN 6.4 g/dL (6.6-8.7)
[2018-09-14] MEDS: BIFIDOBACTERIUM INFANTIS 4 MG CAPSULE PO SCH (09:46)
[2018-09-14] MEDS: AMOX TR/POT CLAV. 500MG/125MG TABLET PO SCH ×2 (09:46→21:52)
[2018-09-14] MEDS: AMIODARONE HCL 200 MG TABLET PO SCH (09:46)
[2018-09-14] MEDS: SENNOSIDES/DOCUSATE SODIUM UD CAPSULE PO SCH ×2 (09:47→21:52)
[2018-09-14] MEDS: TORSEMIDE 20 MG TABLET PO SCH ×2 (09:48→16:03)
[2018-09-14] MEDS: DOXYCYCLINE HYCLATE 100 MG CAPSULE PO SCH ×2 (09:48→21:52)
[2018-09-14] MEDS: BREO (FLUTICASONE/VILANTEROL) 200MCG/25MCG INHALER INH SCH (10:42)
--- NOTE | 2018-09-14 11:40 | Physical Therapy Tx Note ---
Physical Therapy Tx Note - Treatment Note Tolerated: Good Total Time Spent With Patient: 20 Physical Therapy Tx Note: Detail (The patient was up in chair when PT arrived. The patient ambulated on 3 steps with use of railing and walker with Supervision for safety only. The patient had increased complaints of R hip groin pain with stairclimbing. The patient ambulated with front wheeled walker a distance of 200 feet with two standing rest breaks. The patient returned to room and was left in chair with call light and walker within reach.) Physical Therapy Problem List: Detail (1) Decreased LE strength 2) Decreased ability to complet physical activity 3) R groin pain which is limiting the patient's function 4) Assistance with transfers including car transfer and sit to stand from lower surface) Physical Therapy Goals: 1) Increase LE strength 1/3 muscle grade to improve the patient's ablity to complete functional activities. 2) The patient will ambulate on stairs with supervision for safety. 3) The patient will ambulate distances of 200 feet plus with assistive device independently. 4) The patient will be independent with all transfers. 5) The patient will tolerate 30 to 45 minutes of physical activity with one rest period. Physical Therapy Plan: PT M-F 1-2 times a day for ambulation, LE strengthening exercise, balance exercises and mobility.
--- NOTE | 2018-09-14 15:33 | Physical Therapy Tx Note ---
Physical Therapy Tx Note - Treatment Note Tolerated: Good Total Time Spent With Patient: 55 Physical Therapy Tx Note: Detail (The patient was transported to Rehab department. The patient rode the Nu Step x 15 minutes. The patient complete active assistive pullies in flexion, abduction and horizontal abduction and adduction. The patient completed finger ladder x 5 reps B UE's. Passive stretch into shoulder flexion and abduction. MFR of pects. Stretching of pects. press ups x 10 reps. The patient was returned to room with call light in reach.) Physical Therapy Problem List: Detail (1) Decreased LE strength 2) Decreased ability to complet physical activity 3) R groin pain which is limiting the patient's function 4) Assistance with transfers including car transfer and sit to stand from lower surface) Physical Therapy Goals: 1) Increase LE strength 1/3 muscle grade to improve the patient's ablity to complete functional activities. 2) The patient will ambulate on stairs with supervision for safety. 3) The patient will ambulate distances of 200 feet plus with assistive device independently. 4) The patient will be independent with all transfers. 5) The patient will tolerate 30 to 45 minutes of physical activity with one rest period. Physical Therapy Plan: PT M-F 1-2 times a day for ambulation, LE strengthening exercise, balance exercises and mobility.
[2018-09-14] MEDS: WARFARIN 1 MG TABLET PO SCH (16:04)
[2018-09-14] MEDS: ATORVASTATIN 20 MG TABLET PO SCH (21:52)
[2018-09-14] MEDS: RANITIDINE HCL 150 MG TABLET PO SCH (21:52)
[2018-09-14] MEDS: LEVEMIR FLEXTOUCH 100 UNIT/ML INSULIN PEN SQ SCH (21:53)
[2018-09-15] MEDS: ALBUTEROL SULFATE (0.083%) 2.5 MG/3 ML NEB INH PRN ×2 (04:00→09:47)
[2018-09-15] MEDS: LEVOTHYROXINE SODIUM 125 MCG TABLET PO SCH (06:20)
[2018-09-15] MEDS: BIFIDOBACTERIUM INFANTIS 4 MG CAPSULE PO SCH (09:07)
[2018-09-15] MEDS: SENNOSIDES/DOCUSATE SODIUM UD CAPSULE PO SCH ×2 (09:08→21:57)
[2018-09-15] MEDS: AMIODARONE HCL 200 MG TABLET PO SCH (09:08)
[2018-09-15] MEDS: AMOX TR/POT CLAV. 500MG/125MG TABLET PO SCH ×2 (09:08→21:57)
[2018-09-15] MEDS: DOXYCYCLINE HYCLATE 100 MG CAPSULE PO SCH ×2 (09:09→21:57)
[2018-09-15] MEDS: BREO (FLUTICASONE/VILANTEROL) 200MCG/25MCG INHALER INH SCH (09:46)
[2018-09-15] MEDS: OXYCODONE HCL/APAP 5MG/325MG TABLET PO PRN ×2 (10:51→19:17)
[2018-09-15] MEDS: WARFARIN 1 MG TABLET PO SCH (18:14)
[2018-09-15] MEDS: ATORVASTATIN 20 MG TABLET PO SCH (21:57)
[2018-09-15] MEDS: RANITIDINE HCL 150 MG TABLET PO SCH (21:57)
[2018-09-15] MEDS: LEVEMIR FLEXTOUCH 100 UNIT/ML INSULIN PEN SQ SCH (21:58)
[2018-09-16] MEDS: LEVOTHYROXINE SODIUM 125 MCG TABLET PO SCH (06:17)
[2018-09-16] MEDS: BIFIDOBACTERIUM INFANTIS 4 MG CAPSULE PO SCH (09:17)
[2018-09-16] MEDS: AMIODARONE HCL 200 MG TABLET PO SCH (09:18)
[2018-09-16] MEDS: SENNOSIDES/DOCUSATE SODIUM UD CAPSULE PO SCH ×2 (09:18→21:50)
[2018-09-16] MEDS: DOXYCYCLINE HYCLATE 100 MG CAPSULE PO SCH ×2 (09:18→21:51)
[2018-09-16] MEDS: AMOX TR/POT CLAV. 500MG/125MG TABLET PO SCH ×2 (09:18→21:49)
[2018-09-16] MEDS: OXYCODONE HCL/APAP 5MG/325MG TABLET PO PRN ×3 (09:32→19:46)
[2018-09-16 10:11] LABS: INR 2.1; PROTHROMBIN TIME (PATIENT) 20.5 SECONDS (9.5-12.1)
[2018-09-16] MEDS: BREO (FLUTICASONE/VILANTEROL) 200MCG/25MCG INHALER INH SCH (10:20)
[2018-09-16] MEDS: ALBUTEROL SULFATE (0.083%) 2.5 MG/3 ML NEB INH PRN (10:21)
--- NOTE | 2018-09-16 11:59 | Physical Therapy Tx Note ---
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 Patient transferred sit to and from stand independently. Patient ambulated 353 feet with wheeled walker SBA x1. Patient ambulated 27 feet, and 38 feet with two single point canes with standing rest break SBA x1. Patient tolerated treatment well. Patient reports complaints of right hip pain with ambulation. Patient reports feeling fatigued after treatment. Patient was left seated in chair with call light within reach.) Physical Therapy Problem List: Detail (1) Decreased LE strength 2) Decreased ability to complet physical activity 3) R groin pain which is limiting the patient's function 4) Assistance with transfers including car transfer and sit to stand from lower surface) Physical Therapy Goals: 1) Increase LE strength 1/3 muscle grade to improve the patient's ablity to complete functional activities. 2) The patient will ambulate on stairs with supervision for safety. 3) The patient will ambulate distances of 200 feet plus with assistive device independently. 4) The patient will be independent with all transfers. 5) The patient will tolerate 30 to 45 minutes of physical activity with one rest period. Prognosis: Good Physical Therapy Plan: PT M-F 1-2 times a day for ambulation, LE strengthening exercise, balance exercises and mobility.
--- NOTE | 2018-09-16 15:38 | Occupational Therapy Tx Note ---
Occupational Therapy Tx Note - Treatment Note Tolerated: Good Total Time Spent With Patient: 50 (THER EX) Occupational Therapy Treatment Note: Detail (S: Pt up in room. O: Transported to rehab gym via wheelchair. Passive pulleys x 4 min each direction for shoulder flexion, abduction and horiz ab/adduction with tactile cues for proper positioning. Shoulder ladder to 11 on doroteo shoulders x 5 reps. Pt c/o increased pain in shoulders. PROM in supine with HOB at 45 degrees to doroteo shoulders - flexion, abduction/pec stretch to tolerance (right shoulder to 90 degrees only due to port in chest). AAROM for doroteo shoulder horiz ab and adduction with focus on scapular motion x 10 reps, shoulder flexion/extension x 10 reps with focus on shoulder extension. Manual pec stretch x 2 min. Pt completed 15 min on Nustep at level 2 with tactile cues for scapular retraction. A: Pt reports increased groin pain today with activity, strength improving with retraction and extension which is improving overall posture.) Occupational Therapy Problem List: Detail (1. Decreased UE ROM and strength. 2. Decreased tolerance to activity needed for safe and Ind ADLs. 3. Need to further assess ADLs.) Occupational Therapy Goals: 1. Pt will improve doroteo shoulder AROM by 15 degrees to allow improve Ind with overhead ADLs. 2. Pt will improve doroteo bicep strength to 4+/5. 3. Pt will demonstrate improved endurance to allow safe and Ind self cares. Prognosis: Good Occupational Therapy Plan: OT 2-4 days per week to address UE ROM and strength, endurance and ADLs.
[2018-09-16] MEDS: WARFARIN 1 MG TABLET PO SCH (16:21)
[2018-09-16] MEDS: ATORVASTATIN 20 MG TABLET PO SCH (21:50)
[2018-09-16] MEDS: RANITIDINE HCL 150 MG TABLET PO SCH (21:51)
[2018-09-16] MEDS: LEVEMIR FLEXTOUCH 100 UNIT/ML INSULIN PEN SQ SCH (21:52)
[2018-09-17] MEDS: LEVOTHYROXINE SODIUM 125 MCG TABLET PO SCH (06:01)
[2018-09-17] MEDS: OXYCODONE HCL/APAP 5MG/325MG TABLET PO PRN ×3 (09:58→23:06)
[2018-09-17] MEDS: DOXYCYCLINE HYCLATE 100 MG CAPSULE PO SCH ×2 (09:59→21:38)
[2018-09-17] MEDS: SENNOSIDES/DOCUSATE SODIUM UD CAPSULE PO SCH ×2 (09:59→21:38)
[2018-09-17] MEDS: AMIODARONE HCL 200 MG TABLET PO SCH (09:59)
[2018-09-17] MEDS: AMOX TR/POT CLAV. 500MG/125MG TABLET PO SCH ×2 (09:59→21:37)
[2018-09-17] MEDS: BIFIDOBACTERIUM INFANTIS 4 MG CAPSULE PO SCH (09:59)
[2018-09-17] MEDS: WARFARIN 1 MG TABLET PO SCH (18:02)
[2018-09-17] MEDS: ALBUTEROL SULFATE (0.083%) 2.5 MG/3 ML NEB INH PRN ×2 (19:35→22:56)
[2018-09-17] MEDS: BREO (FLUTICASONE/VILANTEROL) 200MCG/25MCG INHALER INH SCH (21:37)
[2018-09-17] MEDS: ATORVASTATIN 20 MG TABLET PO SCH (21:38)
[2018-09-17] MEDS: RANITIDINE HCL 150 MG TABLET PO SCH (21:38)
[2018-09-17] MEDS: LEVEMIR FLEXTOUCH 100 UNIT/ML INSULIN PEN SQ SCH (21:42)
[2018-09-18] MEDS: LEVOTHYROXINE SODIUM 125 MCG TABLET PO SCH (06:23)
[2018-09-18 06:40] LABS: INR 2.1; PROTHROMBIN TIME (PATIENT) 20.5 SECONDS (9.5-12.1)
[2018-09-18 06:47] LABS: ALB/GLOB RATIO 1.4 (1.1-1.8); ALBUMIN 3.8 g/dL (4.0-5.0); BILIRUBIN,TOTAL 0.6 mg/dL (0.2-1.0); CREATININE 2.7 mg/dL (0.7-1.2); TOTAL PROTEIN 6.6 g/dL (6.6-8.7)
[2018-09-18] MEDS: BREO (FLUTICASONE/VILANTEROL) 200MCG/25MCG INHALER INH SCH (10:00)
[2018-09-18] MEDS: ALBUTEROL SULFATE (0.083%) 2.5 MG/3 ML NEB INH PRN (10:01)
[2018-09-18] MEDS: DOXYCYCLINE HYCLATE 100 MG CAPSULE PO SCH ×2 (10:45→21:56)
[2018-09-18] MEDS: AMOX TR/POT CLAV. 500MG/125MG TABLET PO SCH ×2 (10:46→21:56)
[2018-09-18] MEDS: AMIODARONE HCL 200 MG TABLET PO SCH (10:46)
[2018-09-18] MEDS: BIFIDOBACTERIUM INFANTIS 4 MG CAPSULE PO SCH (11:12)
[2018-09-18] MEDS: SENNOSIDES/DOCUSATE SODIUM UD CAPSULE PO SCH ×3 (11:13→21:58)
[2018-09-18] MEDS: COLLAGENASE 30 GM TUBE TOP SCH (11:13)
[2018-09-18] MEDS: OXYCODONE HCL/APAP 5MG/325MG TABLET PO PRN ×2 (11:15→23:45)
--- NOTE | 2018-09-18 14:38 | Physical Therapy Tx Note ---
Physical Therapy Tx Note - Treatment Note Tolerated: Good Total Time Spent With Patient: 60 Physical Therapy Tx Note: Detail (The patient reports he feels weak today from yesterday's dialysis. The patient ambulated 40 feet with front wheeled walker and requested to sit down due to fatigue. The patient was taken to Rehab department. The patient completed Nu Step x 17 minutes. The patient then complete bilateral UE AROM in all directions shoulder flexion, abduction, horizontal abd and add x 5 minutes followed by shoulder ladder into flexion x 3 reps bilaterally and PROM stretching of both shoulders with patient reclined. Patient was returned to room and complained of increased fatigue. The patient was left in chair with call light within reach.) Physical Therapy Problem List: Detail (1) Decreased LE strength 2) Decreased ability to complet physical activity 3) R groin pain which is limiting the patient's function 4) Assistance with transfers including car transfer and sit to stand from lower surface) Physical Therapy Goals: 1) Increase LE strength 1/3 muscle grade to improve the patient's ablity to complete functional activities. 2) The patient will ambulate on stairs with supervision for safety (Goal Met). 3) The patient will ambulate distances of 200 feet plus with assistive device independently. 4) The patient will be independent with all transfers (Goal Met). 5) The patient will tolerate 30 to 45 minutes of physical activity with one rest period. Physical Therapy Plan: PT M-F 1-2 times a day for ambulation, LE strengthening exercise, balance exercises and mobility.
[2018-09-18] MEDS: WARFARIN 1 MG TABLET PO SCH (16:58)
[2018-09-18] MEDS: ATORVASTATIN 20 MG TABLET PO SCH (21:56)
[2018-09-18] MEDS: RANITIDINE HCL 150 MG TABLET PO SCH (21:56)
[2018-09-18] MEDS: LEVEMIR FLEXTOUCH 100 UNIT/ML INSULIN PEN SQ SCH (21:59)
[2018-09-19] MEDS: LEVOTHYROXINE SODIUM 125 MCG TABLET PO SCH (06:38)
--- NOTE | 2018-09-19 09:42 | Physician Progress Note ---
Subjective - Date Date of Progress Note: 09/19/18 - Admitting Diagnosis Diagnosis: Deconditioning secondary to fluid overload - Subjective Events since last encounter: Mr. Pichardo is doing well, no major changes during the last week. He is scheduled for dialysis this afternoon. (last dialysis was and 4 liters were taken off, for a weight loss of 9 pounds). His lower legs have continued to weep, however, the amount of weeping has decreased over the last 2 days. Nursing has started using santyl to help debride some of the flaking tissue around his leg wounds. Planning for d/c on 10/03. He is scheduled for a rhizotomy on 09/30- we will plan to d/c his abx (augmentin and doxy) 7 days prior to his procedure. Nursing Care Plan Problem List Activity Intolerance (Swing Bed) Start: 09/02/18 17: 44 Freq: Status: Active Protocol: Created 09/02/18 17:44 SS (Rec: 09/02/18 17:44 SS [id number]) Altered Thought Process (Fall Risk) Start: 09/02/18 17: 46 Freq: Status: Active Protocol: Created 09/02/18 17:46 SS (Rec: 09/02/18 17:46 SS [id number]) Impaired Mobility (Fall Risk) Start: 09/02/18 17: 46 Freq: Status: Active Protocol: Created 09/02/18 17:46 SS (Rec: 09/02/18 17:46 SS [id number]) Knowledge Deficit (Swing Bed) Start: 09/02/18 17: 44 Freq: Status: Active Protocol: Created 09/02/18 17:44 SS (Rec: 09/02/18 17:44 SS [id number]) Pain (Swing Bed) Start: 09/02/18 17: 44 Freq: Status: Active Protocol: Created 09/02/18 17:44 SS (Rec: 09/02/18 17:44 SS [id number]) Risk for Injury (Fall Risk) Start: 09/02/18 17: 46 Freq: Status: Active Protocol: Created 09/02/18 17:46 SS (Rec: 09/02/18 17:46 SS [id number]) General - Cognitive Patterns Speech: Normal Thought Process: Intact Thought Content: Normal - Communication Select best description of speech pattern: Clear Speech Ability to express ideas and wants: Understood Understanding verbal content: Understands - Mood and Behavior Patterns Appearance: Well Groomed Mood: Normal Attitude: Cooperative Motor Activity: Calm Affect: Appropriate - Physical Functioning Activity Level: Up with assist x1 Turning: With partial assist ROM Ability: Moves all extremities Assistive Devices: 2 Wheel Walker Activity Level Comment: Pt desires to progress back to using two canes instead of walker. Attempted w/ therapy today for a short distance in the hallway. Seemed to tolerate well. Ambulation Ability: Needs Assist Bed Mobility: Needs Assist Transfer Ability: Needs Assist Bathing Ability: Needs Assist Personal Hygiene: Independent Dressing Ability: Independent Eating (Feeding) Ability: Independent Toileting Ability: Independent Administer Own Medication: Independent - Continence Bowel Pattern: Normal for Patient Bladder Pattern: Normal Meds/Allergies - Allergies Allergies Allergy/AdvReac Type Severity Reaction Status Date / Time onion Allergy Intermediate NAUSEA Verified 01/30/16 14:13 rivaroxaban [From Xarelto] AdvReac Severe BRUISING Verified 04/10/18 10:00 - Active Medications Current Medications Albuterol Sulfate () 2.5 mg INH RESP.Q4H.WA PRN PRN Reason: DIFFICULTY IN BREATHING Last Admin: 09/18/18 10:01 Dose: 2.5 mg Amiodarone HCl (Pacerone) 200 mg PO DAILY [facility] Last Admin: 09/18/18 10:46 Dose: 200 mg Amoxicillin/Clavulanate Potassium (Augmentin 500mg/125mg) 1 each PO BID [facility] Last Admin: 09/18/18 21:56 Dose: 1 each Atorvastatin Calcium (Lipitor) 20 mg PO QHS [facility] Last Admin: 09/18/18 21:56 Dose: 20 mg Collagenase (Santyl) 1 gm TOP DAILY [facility] Last Admin: 09/18/18 11:13 Dose: 1 gm Doxycycline Hyclate (Vibramycin) 100 mg PO BID [facility] Last Admin: 09/18/18 21:56 Dose: 100 mg Insulin Detemir (Levemir Flextouch) 6 unit SQ QHS [facility] Last Admin: 09/18/18 21:59 Dose: 6 unit Levothyroxine Sodium (Synthroid) 125 mcg PO DAILYTHY [facility] Last Admin: 09/19/18 06:38 Dose: 125 mcg Magnesium Hydroxide (Milk Of Magnesium) 30 ml PO DAILY PRN PRN Reason: INDIGESTION Last Admin: 09/13/18 15:41 Dose: 30 ml Ondansetron HCl (Zofran Odt) 4 mg SL Q6H PRN PRN Reason: NAUSEA/VOMITING Last Admin: 09/12/18 10:59 Dose: 4 mg Oxycodone/Acetaminophen (Percocet 5-325 Mg Tablet) 1 udtab PO Q4H PRN PRN Reason: PAIN - MOD TO SEVERE (5-10) Last Admin: 09/18/18 23:45 Dose: 1 udtab Polyethylene Glycol (Miralax) 17 gm PO DAILY PRN PRN Reason: CONSTIPATION Last Admin: 09/13/18 09:44 Dose: 17 gm Ranitidine HCl (Zantac) 150 mg PO QHS [facility] Last Admin: 09/18/18 21:56 Dose: 150 mg Senna/Docusate Sodium (Senna Plus) 2 each PO BID [facility] Last Admin: 09/18/18 21:58 Dose: Not Given Torsemide (Torsemide) 10 mg PO Mo [facility] Last Admin: 09/14/18 09:48 Dose: 10 mg Torsemide (Torsemide) 10 mg PO Mo [facility] Last Admin: 09/14/18 16:03 Dose: 10 mg Warfarin Sodium (Coumadin) 2 mg PO TuSa [facility] Last Admin: 09/15/18 18:14 Dose: 2 mg Warfarin Sodium (Coumadin) 3 mg PO SuMoWeThFr [facility] Last Admin: 09/18/18 16:58 Dose: 3 mg Zinc Oxide (Desitin) 28.35 gm TOP ASDIR PRN PRN Reason: RASH Last Admin: 09/17/18 09:58 Dose: 28.35 gm Objective - Vital Signs Vital Signs: Vital Signs - Last 24 Hrs Temp Pulse Pulse Resp BP Pulse Ox 09/18/18 20:00 97.5 F L 82 20 97/66 94 L 09/18/18 10:01 80 16 99 - General General Appearance: Alert, Oriented x3, Cooperative - Head Head exam: Atraumatic - Eye Eye exam: Normal appearance - ENT Mouth exam: Normal external inspection, Tongue normal - Neck Neck exam: Normal inspection - Respiratory Respiratory exam: Normal lung sounds bilaterally. negative: Respiratory distress - Cardiovascular Cardiovascular Exam: Regular rate, Normal rhythm, Normal heart sounds Peripheral Pulses: 2+: Radial (R), Radial (L) - GI/Abdominal GI/Abdominal exam: Soft, Normal bowel sounds. negative: Tenderness - Rectal Rectal exam: Deferred - exam: Deferred - Extremities Extremities exam: Other (bilateral lower extremity pitting edema, weeping, signficant erythema to BLE, worsened from yesterday) - Neurological Neurological exam: Oriented X3 - Psychiatric Psychiatric exam: Normal affect, Normal mood - Skin Skin exam: Abrasion (left elbow skin tear; RLE lateral abrasion), Other (stage II pressure ulcer on sacrum) H&P Results - Labs Result Diagrams: 09/14/18 06:26 09/18/18 06:20 Labs Last 24 Hours: Laboratory Results - last 24 hr 09/18/18 09/19/18 22:00 07:02 POC Glucose 117 H 99 Discharge Potential - Discharge Needs Patient Discharge Plan Description: Return Home Plan - Swing Bed Certification Initial Certification Due: 09/02/18 14 Day Re-Cert Due: 09/16/18 44 Day Re-Cert Due: 10/16/18 74 Day Re-Cert Due: 11/15/18 - Detailed Diagnosis and Plan (1) Physical deconditioning Current Visit: No Status: Acute Base Code: R53.81 - OTHER MALAISE Priority : High Comment: 09/19/18: -Secondary to multiple hospitalizations, worsening of ESRD, dialysis, and CHF -PT/OT evaluation and treatment. (2) ESRD (end stage renal disease) Current Visit: Yes Status: Acute Base Code: N18.6 - END STAGE RENAL DISEASE Comment: 09/19/18: -Dialysis T/TH/Fri -Chip cath placed in right subclavian -Torsemide 10mg BID on Mondays only (will hold on Friday 09/21 due to change in dialysis schedule) -Daily weight, I/Os, continued fluid restricion. (3) MRSA (methicillin resistant staph aureus) culture positive Current Visit: Yes Status: Acute Base Code: Z22.322 - CARRIER OR SUSPECTED CARRIER OF METHICILLIN RESIS STAPH Comment: 09/19/18: - leg wound culture positive for MRSA, Enteroccocous feacalis, Proteus Mirabilis. - on day #9 of Augmentin and doxy (will continue until 09/23- pt. needs to d/c 7 days prior to scheduled rhizotomy on 09/30). (4) Atrial fibrillation Current Visit: No Status: Acute Base Code: I48.91 - UNSPECIFIED ATRIAL FIBRILLATION Comment: 09/19/18: -Continue Amiodarone 200mg q.am -Has AICD/PPM (5) Bilateral lower extremity edema Current Visit: No Status: Acute Base Code: R60.0 - LOCALIZED EDEMA Comment : 09/19/18: - Chronic lower extremity edema with clear weeping discharge -Dressing changes daily -Dialysis T,Th,S, last session 09/17: 4 liters taken off. 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
--- NOTE | 2018-09-19 09:46 | Swing Bed Certification/Recert ---
Initial Certification Due: 09/02/18 14 Day Re-Cert Due: 09/16/18 44 Day Re-Cert Due: 10/16/18 74 Day Re-Cert Due: 11/15/18 CERTIFICATION 3 CERTIFICATION OF PATIENT ADMISSION Required at time of admission. Due: 09/02/18 I certify that SNF services are required to be given on an inpatient basis because of the above named patient's need for [facility] [facility] care on a continuing basis for the condition(s) for which he/she was receiving inpatient hospital services prior to his/her transfer to the SNF. The patient's current needs for skilled care includes: [PT/OT for deconditioning , lab monitoring for ESRD, monitoring of CHF] Maru Lara NEribertoP. 09/03/18 CERTIFICATION 3 CERTIFICATION OF PATIENT ADMISSION Required at time of admission. Due: 09/02/18 I certify that SNF services are required to be given on an inpatient basis because of the above named patient's need for [facility] care on a continuing basis for the condition(s) for which he/she was receiving inpatient hospital services prior to his/her transfer to the SNF. The patient's current needs for skilled care includes: [PT/OT for deconditioning , lab monitoring for ESRD, monitoring of CHF] Zhane Vences, N.P. 09/16/18
[2018-09-19] MEDS: ALBUTEROL SULFATE (0.083%) 2.5 MG/3 ML NEB INH PRN (09:55)
[2018-09-19] MEDS: BREO (FLUTICASONE/VILANTEROL) 200MCG/25MCG INHALER INH SCH (09:55)
[2018-09-19] MEDS: OXYCODONE HCL/APAP 5MG/325MG TABLET PO PRN ×3 (10:11→23:20)
[2018-09-19] MEDS: BIFIDOBACTERIUM INFANTIS 4 MG CAPSULE PO SCH (10:12)
[2018-09-19] MEDS: AMIODARONE HCL 200 MG TABLET PO SCH (10:12)
[2018-09-19] MEDS: SENNOSIDES/DOCUSATE SODIUM UD CAPSULE PO SCH ×2 (10:12→22:36)
[2018-09-19] MEDS: COLLAGENASE 30 GM TUBE TOP SCH (10:14)
[2018-09-19] MEDS: AMOX TR/POT CLAV. 500MG/125MG TABLET PO SCH ×2 (10:14→22:35)
[2018-09-19] MEDS: DOXYCYCLINE HYCLATE 100 MG CAPSULE PO SCH ×2 (10:14→22:36)
[2018-09-19] MEDS: WARFARIN 1 MG TABLET PO SCH (19:06)
[2018-09-19] MEDS: LEVEMIR FLEXTOUCH 100 UNIT/ML INSULIN PEN SQ SCH (22:33)
[2018-09-19] MEDS: ATORVASTATIN 20 MG TABLET PO SCH (22:35)
[2018-09-19] MEDS: RANITIDINE HCL 150 MG TABLET PO SCH (22:36)
[2018-09-20] MEDS: LEVOTHYROXINE SODIUM 125 MCG TABLET PO SCH (06:59)
[2018-09-20] MEDS: ALBUTEROL SULFATE (0.083%) 2.5 MG/3 ML NEB INH PRN ×2 (09:47→23:44)
[2018-09-20] MEDS: BREO (FLUTICASONE/VILANTEROL) 200MCG/25MCG INHALER INH SCH (09:47)
[2018-09-20] MEDS: DOXYCYCLINE HYCLATE 100 MG CAPSULE PO SCH ×2 (10:32→22:31)
[2018-09-20] MEDS: BIFIDOBACTERIUM INFANTIS 4 MG CAPSULE PO SCH (10:32)
[2018-09-20] MEDS: AMIODARONE HCL 200 MG TABLET PO SCH (10:32)
[2018-09-20] MEDS: AMOX TR/POT CLAV. 500MG/125MG TABLET PO SCH ×2 (10:32→22:31)
[2018-09-20] MEDS: SENNOSIDES/DOCUSATE SODIUM UD CAPSULE PO SCH ×2 (10:32→22:31)
[2018-09-20] MEDS: COLLAGENASE 30 GM TUBE TOP SCH (10:33)
[2018-09-20] MEDS: OXYCODONE HCL/APAP 5MG/325MG TABLET PO PRN ×3 (10:36→22:32)
[2018-09-20] MEDS: WARFARIN 1 MG TABLET PO SCH (16:57)
[2018-09-20] MEDS: RANITIDINE HCL 150 MG TABLET PO SCH (22:31)
[2018-09-20] MEDS: LEVEMIR FLEXTOUCH 100 UNIT/ML INSULIN PEN SQ SCH (22:32)
[2018-09-20] MEDS: ATORVASTATIN 20 MG TABLET PO SCH (22:32)
[2018-09-21] MEDS: LEVOTHYROXINE SODIUM 125 MCG TABLET PO SCH (06:52)
[2018-09-21] MEDS: BIFIDOBACTERIUM INFANTIS 4 MG CAPSULE PO SCH (11:16)
[2018-09-21] MEDS: AMOX TR/POT CLAV. 500MG/125MG TABLET PO SCH ×2 (11:16→22:59)
[2018-09-21] MEDS: SENNOSIDES/DOCUSATE SODIUM UD CAPSULE PO SCH ×2 (11:17→23:00)
[2018-09-21] MEDS: AMIODARONE HCL 200 MG TABLET PO SCH (11:17)
[2018-09-21] MEDS: DOXYCYCLINE HYCLATE 100 MG CAPSULE PO SCH ×2 (11:17→23:01)
[2018-09-21] MEDS: TORSEMIDE 20 MG TABLET PO SCH ×2 (11:17→17:54)
[2018-09-21] MEDS: COLLAGENASE 30 GM TUBE TOP SCH (11:30)
[2018-09-21] MEDS: OXYCODONE HCL/APAP 5MG/325MG TABLET PO PRN ×2 (17:53→22:59)
[2018-09-21] MEDS: WARFARIN 1 MG TABLET PO SCH (18:22)
[2018-09-21] MEDS: ATORVASTATIN 20 MG TABLET PO SCH (23:00)
[2018-09-21] MEDS: RANITIDINE HCL 150 MG TABLET PO SCH (23:00)
[2018-09-21] MEDS: LEVEMIR FLEXTOUCH 100 UNIT/ML INSULIN PEN SQ SCH (23:01)
[2018-09-22] MEDS: BREO (FLUTICASONE/VILANTEROL) 200MCG/25MCG INHALER INH SCH ×2 (05:17→10:32)
[2018-09-22] MEDS: LEVOTHYROXINE SODIUM 125 MCG TABLET PO SCH (06:44)
[2018-09-22] MEDS: BIFIDOBACTERIUM INFANTIS 4 MG CAPSULE PO SCH (09:42)
[2018-09-22] MEDS: AMOX TR/POT CLAV. 500MG/125MG TABLET PO SCH ×2 (09:42→23:26)
[2018-09-22] MEDS: AMIODARONE HCL 200 MG TABLET PO SCH (09:42)
[2018-09-22] MEDS: COLLAGENASE 30 GM TUBE TOP SCH (09:43)
[2018-09-22] MEDS: DOXYCYCLINE HYCLATE 100 MG CAPSULE PO SCH ×2 (09:43→23:27)
[2018-09-22] MEDS: SENNOSIDES/DOCUSATE SODIUM UD CAPSULE PO SCH ×2 (09:43→23:27)
[2018-09-22] MEDS: ALBUTEROL SULFATE (0.083%) 2.5 MG/3 ML NEB INH PRN (10:32)
--- NOTE | 2018-09-22 11:40 | Physical Therapy Tx Note ---
Physical Therapy Tx Note - Treatment Note Tolerated: Fair Total Time Spent With Patient: 15 Physical Therapy Tx Note: Detail (The patient was up in chair when PT arrived. The patient ambulated with two canes a distance of 2 feet with increased complaints of R groin pain. The patient ambulated with front wheeled walker a distance of 100 feet x 1 with supervision for safety. Increased R LE foot drag was noted and decreased speed of gait. The patient had increased right groin pain this am. Will see patient in Rehab gym this pm.) Physical Therapy Problem List: Detail (1) Decreased LE strength 2) Decreased ability to complet physical activity 3) R groin pain which is limiting the patient's function 4) Assistance with transfers including car transfer and sit to stand from lower surface) Physical Therapy Goals: 1) Increase LE strength 1/3 muscle grade to improve the patient's ablity to complete functional activities. 2) The patient will ambulate on stairs with supervision for safety (Goal Met). 3) The patient will ambulate distances of 200 feet plus with assistive device independently. 4) The patient will be independent with all transfers (Goal Met). 5) The patient will tolerate 30 to 45 minutes of physical activity with one rest period. Physical Therapy Plan: PT M-F 1-2 times a day for ambulation, LE strengthening exercise, balance exercises and mobility.
[2018-09-22] MEDS: OXYCODONE HCL/APAP 5MG/325MG TABLET PO PRN ×2 (11:44→23:25)
[2018-09-22] MEDS: MAGNESIUM HYDROXIDE 30 ML UDC PO PRN ×2 (13:05→23:23)
--- NOTE | 2018-09-22 15:24 | Physical Therapy Tx Note ---
Physical Therapy Tx Note - Treatment Note Tolerated: Good Total Time Spent With Patient: 15 Physical Therapy Tx Note: Detail (The patient was seen in Rehab department following OT, the patient rode the Nu Step x 17 minutes. The patient continued to complain of groin pain. The patient required supervision for transfers to and from chair to Nu Step. The patient was unable to complete LE exercises due to groin pain.) Physical Therapy Problem List: Detail (1) Decreased LE strength 2) Decreased ability to complet physical activity 3) R groin pain which is limiting the patient's function 4) Assistance with transfers including car transfer and sit to stand from lower surface) Physical Therapy Goals: 1) Increase LE strength 1/3 muscle grade to improve the patient's ablity to complete functional activities. 2) The patient will ambulate on stairs with supervision for safety (Goal Met). 3) The patient will ambulate distances of 200 feet plus with assistive device independently. 4) The patient will be independent with all transfers (Goal Met). 5) The patient will tolerate 30 to 45 minutes of physical activity with one rest period. Physical Therapy Plan: PT M-F 1-2 times a day for ambulation, LE strengthening exercise, balance exercises and mobility.
--- NOTE | 2018-09-22 15:25 | Occupational Therapy Tx Note ---
Occupational Therapy Tx Note - Treatment Note Tolerated: Fair Total Time Spent With Patient: 40 (ther ex) Occupational Therapy Treatment Note: Detail (S: Pt reports shoulders are very stiff today. O: Pt transported to rehab gym via wheelchair. Passive pulleys x 8 min for shoulder flexion, ab/adduction and horiz ab/adduction in external rotation. Shoulder ladder x 4 reps with sustained stretch to level 12 on right and level 14 on left. Passive stretches to doroteo shoulders in supine with HOB raised to 45 degrees including shoulder flexion, ER and abduction with gentle sustained stretch to pts tolerance. Gentle resisted motion to doroteo shoulder horiz adduction with focus on scapular retraction with shoulder at 0 degrees flexion, 45 degrees flexion and 70 degrees flexion x 10 reps each with AAROM into forward flexion with each rep. Gentle chin tucks x 3 reps. Pt left in rehab gym with PT. A: Pt continues with significant stiffness in doroteo shoulders although strength is overall continuing to improve. Endurance with UE activity is poor.) Occupational Therapy Problem List: Detail (1. Decreased UE ROM and strength. 2. Decreased tolerance to activity needed for safe and Ind ADLs. 3. Need to further assess ADLs.) Occupational Therapy Goals: 1. Pt will improve doroteo shoulder AROM by 15 degrees to allow improve Ind with overhead ADLs. 2. Pt will improve doroteo bicep strength to 4+/5. 3. Pt will demonstrate improved endurance to allow safe and Ind self cares. Prognosis: Moderate Occupational Therapy Plan: OT 2-4 days per week to address UE ROM and strength, endurance and ADLs.
[2018-09-22] MEDS: WARFARIN 1 MG TABLET PO SCH (16:01)
[2018-09-22] MEDS: ATORVASTATIN 20 MG TABLET PO SCH (23:26)
[2018-09-22] MEDS: RANITIDINE HCL 150 MG TABLET PO SCH (23:26)
[2018-09-22] MEDS: LEVEMIR FLEXTOUCH 100 UNIT/ML INSULIN PEN SQ SCH (23:28)
[2018-09-23] MEDS: LEVOTHYROXINE SODIUM 125 MCG TABLET PO SCH (07:02)
[2018-09-23] MEDS: COLLAGENASE 30 GM TUBE TOP SCH (10:00)
[2018-09-23] MEDS: SENNOSIDES/DOCUSATE SODIUM UD CAPSULE PO SCH ×2 (10:17→23:00)
[2018-09-23] MEDS: AMOX TR/POT CLAV. 500MG/125MG TABLET PO SCH ×2 (10:17→23:01)
[2018-09-23] MEDS: POLYETHYLENE GLY 17 GM PACKET PO PRN (10:17)
[2018-09-23] MEDS: AMIODARONE HCL 200 MG TABLET PO SCH (10:17)
[2018-09-23] MEDS: DOXYCYCLINE HYCLATE 100 MG CAPSULE PO SCH ×2 (10:17→23:01)
[2018-09-23] MEDS: BIFIDOBACTERIUM INFANTIS 4 MG CAPSULE PO SCH (10:17)
[2018-09-23] MEDS: OXYCODONE HCL/APAP 5MG/325MG TABLET PO PRN ×3 (10:18→23:01)
[2018-09-23] MEDS: BREO (FLUTICASONE/VILANTEROL) 200MCG/25MCG INHALER INH SCH (10:30)
[2018-09-23] MEDS: MAGNESIUM HYDROXIDE 30 ML UDC PO PRN (21:00)
[2018-09-23] MEDS: ATORVASTATIN 20 MG TABLET PO SCH (23:01)
[2018-09-23] MEDS: RANITIDINE HCL 150 MG TABLET PO SCH (23:01)
[2018-09-23] MEDS: LEVEMIR FLEXTOUCH 100 UNIT/ML INSULIN PEN SQ SCH (23:01)
[2018-09-24] MEDS: OXYCODONE HCL/APAP 5MG/325MG TABLET PO PRN ×4 (04:19→22:11)
[2018-09-24] MEDS: LEVOTHYROXINE SODIUM 125 MCG TABLET PO SCH (06:13)
[2018-09-24] MEDS: BREO (FLUTICASONE/VILANTEROL) 200MCG/25MCG INHALER INH SCH (09:58)
[2018-09-24] MEDS: ALBUTEROL SULFATE (0.083%) 2.5 MG/3 ML NEB INH PRN ×2 (10:00→21:30)
[2018-09-24] MEDS: POLYETHYLENE GLY 17 GM PACKET PO PRN (10:07)
[2018-09-24] MEDS: BIFIDOBACTERIUM INFANTIS 4 MG CAPSULE PO SCH (10:08)
[2018-09-24] MEDS: AMIODARONE HCL 200 MG TABLET PO SCH (10:08)
[2018-09-24] MEDS: SENNOSIDES/DOCUSATE SODIUM UD CAPSULE PO SCH ×2 (10:08→22:02)
[2018-09-24] MEDS: DOXYCYCLINE HYCLATE 100 MG CAPSULE PO SCH ×2 (10:08→22:02)
[2018-09-24] MEDS: AMOX TR/POT CLAV. 500MG/125MG TABLET PO SCH ×2 (10:08→22:02)
[2018-09-24] MEDS: COLLAGENASE 30 GM TUBE TOP SCH (10:09)
[2018-09-24] MEDS: LEVEMIR FLEXTOUCH 100 UNIT/ML INSULIN PEN SQ SCH (21:59)
[2018-09-24] MEDS: RANITIDINE HCL 150 MG TABLET PO SCH (22:02)
[2018-09-24] MEDS: ATORVASTATIN 20 MG TABLET PO SCH (22:02)
[2018-09-25] MEDS: LEVOTHYROXINE SODIUM 125 MCG TABLET PO SCH (06:06)
[2018-09-25] MEDS: OXYCODONE HCL/APAP 5MG/325MG TABLET PO PRN ×4 (07:12→19:41)
[2018-09-25] MEDS: BIFIDOBACTERIUM INFANTIS 4 MG CAPSULE PO SCH (09:12)
[2018-09-25] MEDS: MAGNESIUM HYDROXIDE 30 ML UDC PO PRN ×2 (09:12→16:17)
[2018-09-25] MEDS: SENNOSIDES/DOCUSATE SODIUM UD CAPSULE PO SCH ×2 (09:12→21:59)
[2018-09-25] MEDS: TORSEMIDE 20 MG TABLET PO SCH ×2 (09:12→16:11)
[2018-09-25] MEDS: AMOX TR/POT CLAV. 500MG/125MG TABLET PO SCH ×2 (09:12→21:58)
[2018-09-25] MEDS: AMIODARONE HCL 200 MG TABLET PO SCH (09:12)
[2018-09-25] MEDS: MUPIROCIN OINT 22 GM TUBE TOP SCH ×2 (09:12→22:01)
[2018-09-25] MEDS: COLLAGENASE 30 GM TUBE TOP SCH (09:13)
[2018-09-25] MEDS: POLYETHYLENE GLY 17 GM PACKET PO PRN (09:13)
[2018-09-25] MEDS: DOXYCYCLINE HYCLATE 100 MG CAPSULE PO SCH ×2 (09:14→21:58)
[2018-09-25] MEDS: ALBUTEROL SULFATE (0.083%) 2.5 MG/3 ML NEB INH PRN (10:25)
[2018-09-25] MEDS: BREO (FLUTICASONE/VILANTEROL) 200MCG/25MCG INHALER INH SCH (10:25)
[2018-09-25 10:50] LABS: INR 2.6; PROTHROMBIN TIME (PATIENT) 25.4 SECONDS (9.5-12.1)
--- NOTE | 2018-09-25 11:54 | Physical Therapy Tx Note ---
Physical Therapy Tx Note - Treatment Note Tolerated: Good Total Time Spent With Patient: 20 Physical Therapy Tx Note: Detail (Patient states no new complaints. Patient transferred sit to and from stand independently. Patient ambulated 386 feet with wheeled walker SBA x1. Patient reports increased right hip pain with ambulation. Patient was left seated in chair with call light within reach.) Physical Therapy Problem List: Detail (1) Decreased LE strength 2) Decreased ability to complet physical activity 3) R groin pain which is limiting the patient's function 4) Assistance with transfers including car transfer and sit to stand from lower surface) Physical Therapy Goals: 1) Increase LE strength 1/3 muscle grade to improve the patient's ablity to complete functional activities. 2) The patient will ambulate on stairs with supervision for safety (Goal Met). 3) The patient will ambulate distances of 200 feet plus with assistive device independently. 4) The patient will be independent with all transfers (Goal Met). 5) The patient will tolerate 30 to 45 minutes of physical activity with one rest period. Prognosis: Good Physical Therapy Plan: PT M-F 1-2 times a day for ambulation, LE strengthening exercise, balance exercises and mobility.
[2018-09-25] MEDS ORDERED: LIDOCAINE 2% JELLY 30 ML TUBE TOP PRN (14:11)
--- NOTE | 2018-09-25 15:57 | Occupational Therapy Tx Note ---
Occupational Therapy Tx Note - Treatment Note Tolerated: Fair Total Time Spent With Patient: 35 (ther ex, MTT) Occupational Therapy Treatment Note: Detail (S: Pt reports shoulders are very sore today. O: Passive pulleys for doroteo shoulder flexion, ab/adduction and horiz ab/adduction x 8 min. Shoulder ladder x 5 reps each, to rung 12 bilaterally due to pain. Red theraputty for doroteo hand gas tester strengthening x 5 min , doroteo red theraband for shoulder retraction with arms at side and with arms at 45 degrees abduction x 15 reps each with verbal cues for scapular retraction. Passive stretches to doroteo shoulder flexion, horiz abduction and ER to tolerance with sustained stretching. MTT/MFR and gentle massage to doroteo shoulders, upper trap musculature and mid scapular region. A: Pt reports less pain and tightness in shoulders after MTT, significant guarding and trigger points cont in doroteo shoulders.) Occupational Therapy Problem List: Detail (1. Decreased UE ROM and strength. 2. Decreased tolerance to activity needed for safe and Ind ADLs. 3. Need to further assess ADLs.) Occupational Therapy Goals: 1. Pt will improve doroteo shoulder AROM by 15 degrees to allow improve Ind with overhead ADLs. 2. Pt will improve doroteo bicep strength to 4+/5. 3. Pt will demonstrate improved endurance to allow safe and Ind self cares. Prognosis: Moderate Occupational Therapy Plan: OT 2-4 days per week to address UE ROM and strength, endurance and ADLs.
--- NOTE | 2018-09-25 18:29 | Physical Therapy Tx Note ---
Physical Therapy Tx Note - Treatment Note Tolerated: Good Total Time Spent With Patient: 25 Physical Therapy Tx Note: Detail (Pt presents in wheelchair from OT. Transferred to NuStep w/SBA, CGA for placing feet onto pedals and removing them at end of treatment. Rode NuStep for 20 minutes at moderate pace (50+steps/ minute) w/little pain or difficulty. VC's to keep shoulders down while riding. Able to converse while riding w/o shortness of breath. Transferred back to wheelchair w/SBA using front wheeled walker. Transported back to room by OT.) Physical Therapy Problem List: Detail (1) Decreased LE strength 2) Decreased ability to complet physical activity 3) R groin pain which is limiting the patient's function 4) Assistance with transfers including car transfer and sit to stand from lower surface) Physical Therapy Goals: 1) Increase LE strength 1/3 muscle grade to improve the patient's ablity to complete functional activities. 2) The patient will ambulate on stairs with supervision for safety (Goal Met). 3) The patient will ambulate distances of 200 feet plus with assistive device independently. 4) The patient will be independent with all transfers (Goal Met). 5) The patient will tolerate 30 to 45 minutes of physical activity with one rest period. Prognosis: Good Physical Therapy Plan: PT M-F 1-2 times a day for ambulation, LE strengthening exercise, balance exercises and mobility.
[2018-09-25] MEDS: ATORVASTATIN 20 MG TABLET PO SCH (21:58)
[2018-09-25] MEDS: RANITIDINE HCL 150 MG TABLET PO SCH (21:58)
[2018-09-25] MEDS: LEVEMIR FLEXTOUCH 100 UNIT/ML INSULIN PEN SQ SCH (22:28)
[2018-09-26] MEDS: LEVOTHYROXINE SODIUM 125 MCG TABLET PO SCH (06:08)
[2018-09-26] MEDS: DOXYCYCLINE HYCLATE 100 MG CAPSULE PO SCH ×2 (09:03→22:38)
[2018-09-26] MEDS: AMOX TR/POT CLAV. 500MG/125MG TABLET PO SCH ×2 (09:03→22:38)
[2018-09-26] MEDS: BIFIDOBACTERIUM INFANTIS 4 MG CAPSULE PO SCH (09:03)
[2018-09-26] MEDS: MUPIROCIN OINT 22 GM TUBE TOP SCH ×2 (09:03→22:38)
[2018-09-26] MEDS: COLLAGENASE 30 GM TUBE TOP SCH (09:04)
[2018-09-26] MEDS: AMIODARONE HCL 200 MG TABLET PO SCH (09:04)
[2018-09-26] MEDS: SENNOSIDES/DOCUSATE SODIUM UD CAPSULE PO SCH ×2 (09:08→22:38)
[2018-09-26] MEDS: ALBUTEROL SULFATE (0.083%) 2.5 MG/3 ML NEB INH PRN (10:29)
[2018-09-26] MEDS: BREO (FLUTICASONE/VILANTEROL) 200MCG/25MCG INHALER INH SCH (10:29)
[2018-09-26] MEDS ORDERED: MIDODRINE HCL 5 MG TABLET PO ONE (11:00)
[2018-09-26] MEDS: OXYCODONE HCL/APAP 5MG/325MG TABLET PO PRN ×2 (17:33→22:38)
[2018-09-26] MEDS: ATORVASTATIN 20 MG TABLET PO SCH (22:38)
[2018-09-26] MEDS: RANITIDINE HCL 150 MG TABLET PO SCH (22:38)
[2018-09-26] MEDS: LEVEMIR FLEXTOUCH 100 UNIT/ML INSULIN PEN SQ SCH (22:39)
[2018-09-27] MEDS: LEVOTHYROXINE SODIUM 125 MCG TABLET PO SCH (07:34)
[2018-09-27] MEDS: AMOX TR/POT CLAV. 500MG/125MG TABLET PO SCH ×2 (09:30→23:20)
[2018-09-27] MEDS: BIFIDOBACTERIUM INFANTIS 4 MG CAPSULE PO SCH (09:30)
[2018-09-27] MEDS: DOXYCYCLINE HYCLATE 100 MG CAPSULE PO SCH ×2 (09:31→23:24)
[2018-09-27] MEDS: AMIODARONE HCL 200 MG TABLET PO SCH (09:31)
[2018-09-27] MEDS: SENNOSIDES/DOCUSATE SODIUM UD CAPSULE PO SCH ×2 (09:33→23:23)
[2018-09-27] MEDS: OXYCODONE HCL/APAP 5MG/325MG TABLET PO PRN ×2 (09:33→23:25)
[2018-09-27] MEDS: COLLAGENASE 30 GM TUBE TOP SCH (09:36)
[2018-09-27] MEDS: MUPIROCIN OINT 22 GM TUBE TOP SCH ×2 (09:39→23:22)
[2018-09-27] MEDS: ALBUTEROL SULFATE (0.083%) 2.5 MG/3 ML NEB INH PRN (10:43)
[2018-09-27] MEDS: BREO (FLUTICASONE/VILANTEROL) 200MCG/25MCG INHALER INH SCH (10:43)
[2018-09-27 10:46] LABS: INR 1.5; PROTHROMBIN TIME (PATIENT) 15.3 SECONDS (9.5-12.1)
[2018-09-27 10:50] LABS: CREATININE 2.4 mg/dL (0.7-1.2)
[2018-09-27] MEDS ORDERED: ENOXAPARIN 100 MG/ML SYR SQ SCH (18:00)
[2018-09-27] MEDS: ATORVASTATIN 20 MG TABLET PO SCH (23:22)
[2018-09-27] MEDS: RANITIDINE HCL 150 MG TABLET PO SCH (23:24)
[2018-09-27] MEDS: LEVEMIR FLEXTOUCH 100 UNIT/ML INSULIN PEN SQ SCH (23:26)
[2018-09-28] MEDS: OXYCODONE HCL/APAP 5MG/325MG TABLET PO PRN ×4 (06:56→21:39)
[2018-09-28] MEDS: LEVOTHYROXINE SODIUM 125 MCG TABLET PO SCH (06:56)
[2018-09-28] MEDS: AMOX TR/POT CLAV. 500MG/125MG TABLET PO SCH ×2 (09:05→21:39)
[2018-09-28] MEDS: BIFIDOBACTERIUM INFANTIS 4 MG CAPSULE PO SCH (09:05)
[2018-09-28] MEDS: SENNOSIDES/DOCUSATE SODIUM UD CAPSULE PO SCH ×2 (09:06→21:39)
[2018-09-28] MEDS: AMIODARONE HCL 200 MG TABLET PO SCH (09:06)
[2018-09-28] MEDS: TORSEMIDE 20 MG TABLET PO SCH ×2 (09:07→16:36)
[2018-09-28] MEDS: COLLAGENASE 30 GM TUBE TOP SCH (09:07)
[2018-09-28] MEDS: DOXYCYCLINE HYCLATE 100 MG CAPSULE PO SCH ×2 (09:07→21:39)
[2018-09-28] MEDS: MUPIROCIN OINT 22 GM TUBE TOP SCH ×2 (09:12→21:41)
[2018-09-28] MEDS: ALBUTEROL SULFATE (0.083%) 2.5 MG/3 ML NEB INH PRN (10:06)
[2018-09-28] MEDS: BREO (FLUTICASONE/VILANTEROL) 200MCG/25MCG INHALER INH SCH (10:06)
--- NOTE | 2018-09-28 17:02 | Physical Therapy Tx Note ---
Physical Therapy Tx Note - Treatment Note Tolerated: Fair Total Time Spent With Patient: 30 Physical Therapy Tx Note: Detail (The patient ambulated with front wheeled walker a distance of 200 feet x 1. The patient completed LE exercises seated including: hip marching, hip adductor squeezes, green resistive band exercises including hip abduction, LAQ and hamstring curls all until fatigued. The patient complained of R groin pain throughout exercises. The patient reports he has difficulty lifting R LE onto stool to climb into truck. It was suggested to patient he use a 4 inch step instead of a 7 inch step. The patient's LE pain continues to limit his function ie : stair climbing, truck transfers.) Physical Therapy Problem List: Detail (1) Decreased LE strength 2) Decreased ability to complet physical activity 3) R groin pain which is limiting the patient's function 4) Assistance with transfers including car transfer and sit to stand from lower surface) Physical Therapy Goals: 1) Increase LE strength 1/3 muscle grade to improve the patient's ablity to complete functional activities. 2) The patient will ambulate on stairs with supervision for safety (Goal Met). 3) The patient will ambulate distances of 200 feet plus with assistive device independently. 4) The patient will be independent with all transfers (Goal Met). 5) The patient will tolerate 30 to 45 minutes of physical activity with one rest period. Physical Therapy Plan: PT M-F 1-2 times a day for ambulation, LE strengthening exercise, balance exercises and mobility.
[2018-09-28] MEDS: ATORVASTATIN 20 MG TABLET PO SCH (21:39)
[2018-09-28] MEDS: POLYETHYLENE GLY 17 GM PACKET PO PRN (21:39)
[2018-09-28] MEDS: RANITIDINE HCL 150 MG TABLET PO SCH (21:39)
[2018-09-28] MEDS: LEVEMIR FLEXTOUCH 100 UNIT/ML INSULIN PEN SQ SCH (21:40)
[2018-09-29] MEDS: LEVOTHYROXINE SODIUM 125 MCG TABLET PO SCH (06:21)
--- NOTE | 2018-09-29 09:19 | Physician Progress Note ---
Subjective - Date Date of Progress Note: 10/04/18 - Admitting Diagnosis Diagnosis: Deconditioning secondary to fluid overload - Subjective Nursing Care Plan Problem List Activity Intolerance (Swing Bed) Start: 09/02/18 17: 44 Freq: Status: Active Protocol: Created 09/02/18 17:44 SS (Rec: 09/02/18 17:44 SS [id number]) Altered Thought Process (Fall Risk) Start: 09/02/18 17: 46 Freq: Status: Active Protocol: Created 09/02/18 17:46 SS (Rec: 09/02/18 17:46 SS [id number]) Impaired Mobility (Fall Risk) Start: 09/02/18 17: 46 Freq: Status: Active Protocol: Created 09/02/18 17:46 SS (Rec: 09/02/18 17:46 SS [id number]) Knowledge Deficit (Swing Bed) Start: 09/02/18 17: 44 Freq: Status: Active Protocol: Created 09/02/18 17:44 SS (Rec: 09/02/18 17:44 SS [id number]) Pain (Swing Bed) Start: 09/02/18 17: 44 Freq: Status: Active Protocol: Created 09/02/18 17:44 SS (Rec: 09/02/18 17:44 SS [id number]) Risk for Injury (Fall Risk) Start: 09/02/18 17: 46 Freq: Status: Active Protocol: Created 09/02/18 17:46 SS (Rec: 09/02/18 17:46 SS [id number]) - Subjective Detail Constitutional: Reports: Weakness. Denies: Chills, Fever Cardiovascular: Reports: Edema, Murmurs Endocrine: Reports: Fatigue General - Cognitive Patterns Speech: Normal Thought Process: Intact Thought Content: Normal - Communication Select best description of speech pattern: Clear Speech Ability to express ideas and wants: Understood Understanding verbal content: Understands - Mood and Behavior Patterns Appearance: Well Groomed Mood: Normal Attitude: Cooperative Motor Activity: Calm Affect: Appropriate - Physical Functioning Activity Level: Up with assist x1 Turning: With partial assist ROM Ability: Moves all extremities Assistive Devices: 2 Wheel Walker Activity Level Comment: Pt up in room and to bathroom Ambulation Ability: Needs Assist Bed Mobility: Needs Assist Transfer Ability: Needs Assist Bathing Ability: Independent Personal Hygiene: Independent Dressing Ability: Needs Assist Eating (Feeding) Ability: Independent Toileting Ability: Independent Administer Own Medication: Independent Care Ability Comment: Standby assist when ambulating. Needs help getting out of bed. - Continence Bowel Pattern: Normal for Patient Bladder Pattern: Normal (pt able to use urinal and has HD) Meds/Allergies - Allergies Allergies Allergy/AdvReac Type Severity Reaction Status Date / Time onion Allergy Intermediate NAUSEA Verified 01/30/16 14:13 rivaroxaban [From Xarelto] AdvReac Severe BRUISING Verified 04/10/18 10:00 - Active Medications Current Medications Albuterol Sulfate () 2.5 mg INH RESP.Q4H.WA PRN PRN Reason: DIFFICULTY IN BREATHING Last Admin: 09/28/18 10:06 Dose: 2.5 mg Amiodarone HCl (Pacerone) 200 mg PO DAILY [facility] Last Admin: 09/28/18 09:06 Dose: 200 mg Amoxicillin/Clavulanate Potassium (Augmentin 500mg/125mg) 1 each PO BID [facility] Last Admin: 09/28/18 21:39 Dose: 1 each Atorvastatin Calcium (Lipitor) 20 mg PO QHS [facility] Last Admin: 09/28/18 21:39 Dose: 20 mg Collagenase (Santyl) 1 gm TOP DAILY [facility] Last Admin: 09/28/18 09:07 Dose: 1 gm Doxycycline Hyclate (Vibramycin) 100 mg PO BID [facility] Last Admin: 09/28/18 21:39 Dose: 100 mg Enoxaparin Sodium (Lovenox) 100 mg SQ 1800 [facility] Last Admin: 09/27/18 17:19 Dose: 100 mg Insulin Detemir (Levemir Flextouch) 6 unit SQ QHS [facility] Last Admin: 09/28/18 21:40 Dose: 6 unit Levothyroxine Sodium (Synthroid) 125 mcg PO DAILYTHY [facility] Last Admin: 09/29/18 06:21 Dose: 125 mcg Lidocaine HCl (Xylocaine 2% Jelly) 30 ml TOP Q4H PRN PRN Reason: PAIN - MILD TO MODERATE (1-7) Magnesium Hydroxide (Milk Of Magnesium) 30 ml PO DAILY PRN PRN Reason: INDIGESTION Last Admin: 09/25/18 16:17 Dose: 30 ml Midodrine ([facility]odrine Hcl) [facility] Mupirocin (Bactroban) 22 gm TOP BID [facility] Stop: 09/29/18 22:01 Last Admin: 09/28/18 21:41 Dose: 22 gm Ondansetron HCl (Zofran Odt) 4 mg SL Q6H PRN PRN Reason: NAUSEA/VOMITING Last Admin: 09/12/18 10:59 Dose: 4 mg Oxycodone/Acetaminophen (Percocet 5-325 Mg Tablet) 1 udtab PO Q4H PRN PRN Reason: PAIN - MOD TO SEVERE (5-10) Last Admin: 09/28/18 21:39 Dose: 1 udtab Polyethylene Glycol (Miralax) 17 gm PO DAILY PRN PRN Reason: CONSTIPATION Last Admin: 09/28/18 21:39 Dose: 17 gm Ranitidine HCl (Zantac) 150 mg PO QHS [facility] Last Admin: 09/28/18 21:39 Dose: 150 mg Senna/Docusate Sodium (Senna Plus) 2 each PO BID [facility] Last Admin: 09/28/18 21:39 Dose: 2 each Torsemide (Torsemide) 10 mg PO Mo YAHIR Last Admin: 09/28/18 09:07 Dose: 10 mg Torsemide (Torsemide) 10 mg PO Mo YAHIR Last Admin: 09/28/18 16:36 Dose: 10 mg Zinc Oxide (Desitin) 28.35 gm TOP ASDIR PRN PRN Reason: RASH Last Admin: 09/17/18 09:58 Dose: 28.35 gm Objective - Vital Signs Vital Signs: Vital Signs - Last 24 Hrs Temp Pulse Pulse Resp BP BP Pulse Ox 09/29/18 07:54 97.7 F 85 18 107/71 100 09/28/18 20:00 97.7 F 83 16 83/55 100 09/28/18 10:04 87 18 98 09/28/18 09:59 88 18 98 - General General Appearance: Alert, Oriented x3, Cooperative - Head Head exam: Atraumatic - Eye Eye exam: Normal appearance - ENT Mouth exam: Normal external inspection, Tongue normal - Neck Neck exam: Normal inspection - Respiratory Respiratory exam: Normal lung sounds bilaterally. negative: Respiratory distress - Cardiovascular Cardiovascular Exam: Regular rate, Normal rhythm, Normal heart sounds Peripheral Pulses: 2+: Radial (R), Radial (L) - GI/Abdominal GI/Abdominal exam: Soft, Normal bowel sounds. negative: Tenderness - Rectal Rectal exam: Deferred - exam: Deferred - Extremities Extremities exam: Other (bilateral lower extremity pitting edema, weeping, signficant erythema to BLE, worsened from yesterday) - Neurological Neurological exam: Oriented X3 - Psychiatric Psychiatric exam: Normal affect, Normal mood - Skin Skin exam: Abrasion (left elbow skin tear; RLE lateral abrasion), Other (stage II pressure ulcer on sacrum) H&P Results - Labs Result Diagrams: 09/14/18 06:26 10/02/18 12:26 Labs Last 24 Hours: Laboratory Results - last 24 hr 09/28/18 09/29/18 22:26 07:30 POC Glucose 211 H 138 H Discharge Potential - Discharge Needs Patient Discharge Plan Description: Return Home Plan - Swing Bed Certification Initial Certification Due: 09/02/18 14 Day Re-Cert Due: 09/16/18 44 Day Re-Cert Due: 10/16/18 74 Day Re-Cert Due: 11/15/18 - Detailed Diagnosis and Plan (1) Physical deconditioning Current Visit: No Status: Acute Base Code: R53.81 - OTHER MALAISE Priority : High Comment: 09/19/18: -Secondary to multiple hospitalizations, worsening of ESRD, dialysis, and CHF -PT/OT evaluation and treatment. 09/29/18 -HD, CHF, chronic wounds, per PT pt has recently had decline in strength and decreased PT tolerance -PT/OT continue (2) ESRD (end stage renal disease) Current Visit: Yes Status: Chronic Base Code: N18.6 - END STAGE RENAL DISEASE Comment: 09/29/18: -Dialysis T//Fri -Chip cath placed in right subclavian -Torsemide 10mg BID on Mondays only (will hold on Friday 09/21 due to change in dialysis schedule), Midodrine 10mg before HD -HD catheter dressing C/D/I -Daily weight, I/Os, continued fluid restricion. -09/29/18 pt to have dialysis care conference -labs reviewed (from 09/27/18) K slightly elevated HD today (3) MRSA (methicillin resistant staph aureus) culture positive Current Visit: Yes Status: Acute Base Code: Z22.322 - CARRIER OR SUSPECTED CARRIER OF METHICILLIN RESIS STAPH Comment: 09/19/18: - leg wound culture positive for MRSA, Enteroccocous feacalis, Proteus Mirabilis. - on day #9 of Augmentin and doxy (will continue until 09/23- pt. needs to d/c 7 days prior to scheduled rhizotomy on 09/30). 09/29/18 -abx were not d/c'd until 09/29/18 -wound cultures reviewed and susceptible to augmentin and doxy -continue bactroban topical with dressing changes -Wound care appt 10/07/18 Ileana (will discuse changing d/c date to 10/09/18 to involve new recommendations for chronic wound POC) (4) Bilateral lower extremity edema Current Visit: No Status: Acute Base Code: R60.0 - LOCALIZED EDEMA Comment : 09/29/18: - Chronic lower extremity edema with clear weeping discharge -Dressing changes daily and PRN (currently BID once with daughter and once with staff daily) -Dialysis T,Th,S, last session 09/17: 4 liters taken off. -Torsemide 10mg BID Mondays *09/29/18 doppler attempted not doroteo DP or PT noted* art US ordered (5) Atrial fibrillation Current Visit: No Status: Acute Base Code: I48.91 - UNSPECIFIED ATRIAL FIBRILLATION Comment: 09/29/18: -Continue Amiodarone 200mg q.am -Has AICD/PPM -hold coumadin, lovenox 100mg QD r/t facet rhizotomy 09/30/18 (6) COPD (chronic obstructive pulmonary disease) Current Visit: No Status: Chronic Base Code: J44.9 - CHRONIC OBSTRUCTIVE PULMONARY DISEASE, UNSPECIFIED Comment: 09/29/18: -Continue Breo -Continue Albuterol PRN (7) Diabetes Current Visit: No Status: Chronic Qualifiers: Diabetes mellitus type: type 2 Diabetes mellitus shelter insulin use: with shelter use Diabetes mellitus complication status: with hyperglycemia Qualified Code(s): E11.65 - Type 2 diabetes mellitus with hyperglycemia; 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 Base Code: E11.9 - TYPE 2 DIABETES MELLITUS WITHOUT COMPLICATIONS Comment: : -Continue Levemir 10 units daily -Accuchecks AC & HS -ADA diet (8) Pressure ulcer Current Visit: Yes Status: Acute Qualifiers: Pressure injury location: other site Pressure injury stage: stage 2 Qualified Code(s): L89.892 - Pressure ulcer of other site, stage 2 Base Code: L89.90 - PRESSURE ULCER OF UNSPECIFIED SITE, UNSPECIFIED STAGE Comment: 09/29/18 -sacral stage II noted (documented on admission) -doroteo ishial tuberosity stage II -q2 hour turning ordered -duoderm daily and PRN (9) DVT prophylaxis Current Visit: No Status: Acute Base Code: [id number] - Comment: 09/29/18: -coumadin held r/t facet rhizotomy 09/30/18 -lovenox 100mg QD -Pharmacy to contact Dr Russ after procedure to get coumadin recommendations to bridge back (10) Full code status Current Visit: No Status: Acute Base Code: Z78.9 - OTHER SPECIFIED HEALTH STATUS Comment: 09/29/18: -Full code status
[2018-09-29] MEDS: AMOX TR/POT CLAV. 500MG/125MG TABLET PO SCH (09:41)
[2018-09-29] MEDS: DOXYCYCLINE HYCLATE 100 MG CAPSULE PO SCH (09:42)
[2018-09-29] MEDS: BIFIDOBACTERIUM INFANTIS 4 MG CAPSULE PO SCH (09:43)
[2018-09-29] MEDS: MUPIROCIN OINT 22 GM TUBE TOP SCH ×2 (09:43→23:17)
[2018-09-29] MEDS: SENNOSIDES/DOCUSATE SODIUM UD CAPSULE PO SCH ×2 (09:43→22:19)
[2018-09-29] MEDS: COLLAGENASE 30 GM TUBE TOP SCH (09:43)
[2018-09-29] MEDS: AMIODARONE HCL 200 MG TABLET PO SCH (09:43)
[2018-09-29] MEDS: BREO (FLUTICASONE/VILANTEROL) 200MCG/25MCG INHALER INH SCH (10:20)
[2018-09-29] MEDS: ALBUTEROL SULFATE (0.083%) 2.5 MG/3 ML NEB INH PRN (10:20)
[2018-09-29] MEDS: OXYCODONE HCL/APAP 5MG/325MG TABLET PO PRN ×3 (10:40→22:24)
[2018-09-29] MEDS ORDERED: MIDODRINE HCL 5 MG TABLET PO SCH (11:00)
[2018-09-29] MEDS: MIDODRINE HCL 5 MG TABLET PO SCH ×2 (18:02→22:38)
[2018-09-29] MEDS: GABAPENTIN 100 MG CAPSULE PO SCH (18:02)
[2018-09-29] MEDS: RANITIDINE HCL 150 MG TABLET PO SCH (22:19)
[2018-09-29] MEDS: ATORVASTATIN 20 MG TABLET PO SCH (22:19)
[2018-09-29] MEDS: LEVEMIR FLEXTOUCH 100 UNIT/ML INSULIN PEN SQ SCH (22:35)
[2018-09-30] MEDS: BREO (FLUTICASONE/VILANTEROL) 200MCG/25MCG INHALER INH SCH ×2 (07:38→10:02)
[2018-09-30] MEDS: ALBUTEROL SULFATE (0.083%) 2.5 MG/3 ML NEB INH PRN (07:38)
[2018-09-30] MEDS: LEVOTHYROXINE SODIUM 125 MCG TABLET PO SCH ×2 (08:22→11:16)
[2018-09-30] MEDS ORDERED: HYDROCODONE/APAP 7.5/325MG TABLET PO PRN ×2 (10:44→10:47)
[2018-09-30] MEDS ORDERED: OXYCODONE/APAP 10MG-325MG TABLET PO PRN (10:48)
[2018-09-30] MEDS: OXYCODONE/APAP 10MG-325MG TABLET PO PRN ×2 (10:55→23:24)
[2018-09-30] MEDS: BIFIDOBACTERIUM INFANTIS 4 MG CAPSULE PO SCH (11:10)
[2018-09-30] MEDS: MIDODRINE HCL 5 MG TABLET PO SCH ×3 (11:11→21:18)
[2018-09-30] MEDS: SENNOSIDES/DOCUSATE SODIUM UD CAPSULE PO SCH ×2 (11:14→21:20)
[2018-09-30] MEDS: AMIODARONE HCL 200 MG TABLET PO SCH (11:14)
[2018-09-30] MEDS: TORSEMIDE 20 MG TABLET PO SCH (11:15)
[2018-09-30] MEDS ORDERED: METHYLPREDNISOLONE 4 MG PO ONE ×2 (11:18→12:00)
[2018-09-30] MEDS: COLLAGENASE 30 GM TUBE TOP SCH (11:42)
--- NOTE | 2018-09-30 15:10 | Occupational Therapy Tx Note ---
Occupational Therapy Tx Note - Treatment Note Tolerated: Fair Total Time Spent With Patient: 30 (MTT) Occupational Therapy Treatment Note: Detail (S: Pt up in chair, had procedure this am but hoping to participate in some therapy. O: Pt able to stand and take 4 steps forward with walker although he had difficulty lifting feet. Pt was seated in chair. MTT as follows: PROM to doroteo shoulder flexion, horizontal abduction, IR and ER with sustained stretches to each motion x 5 reps. AAROM x 5 for doroteo shoulder flexion with moderate assistance. MFR/TPR to doroteo ant and posterior shoulder region and mid scapular region to decrease pain and muscle tightness and guarding. Passive stretch to doroteo pecs/anterior shoulder to decrease forward posture. A: Pt reports less pain and tightness in shoulders and upper back after treatment. Pt very fatigued and UE weakness continues.) Occupational Therapy Problem List: Detail (1. Decreased UE ROM and strength. 2. Decreased tolerance to activity needed for safe and Ind ADLs. 3. Need to further assess ADLs.) Occupational Therapy Goals: 1. Pt will improve doroteo shoulder AROM by 15 degrees to allow improve Ind with overhead ADLs. 2. Pt will improve doroteo bicep strength to 4+/5. 3. Pt will demonstrate improved endurance to allow safe and Ind self cares. Prognosis: Moderate (Pt has a guarded prognosis at this time due to multiple medical issues which are limiting his therapy progress.) Occupational Therapy Plan: OT 2-4 days per week to address UE ROM and strength, endurance and ADLs.
[2018-09-30] MEDS ORDERED: WARFARIN 5 MG TAB PO SCH (16:00)
[2018-09-30] MEDS: GABAPENTIN 100 MG CAPSULE PO SCH (17:19)
[2018-09-30] MEDS: WARFARIN 5 MG TAB PO SCH (17:19)
[2018-09-30] MEDS: ENOXAPARIN 100 MG/ML SYR SQ SCH (17:20)
[2018-09-30] MEDS: MAGNESIUM HYDROXIDE 30 ML UDC PO PRN (18:17)
[2018-09-30] MEDS: ATORVASTATIN 20 MG TABLET PO SCH (21:20)
[2018-09-30] MEDS: LEVEMIR FLEXTOUCH 100 UNIT/ML INSULIN PEN SQ SCH (21:21)
[2018-09-30] MEDS: RANITIDINE HCL 150 MG TABLET PO SCH (21:21)
[2018-09-30] MEDS: POLYETHYLENE GLY 17 GM PACKET PO PRN (23:20)
[2018-10-01] MEDS: LEVOTHYROXINE SODIUM 125 MCG TABLET PO SCH (06:21)
[2018-10-01] MEDS: OXYCODONE/APAP 10MG-325MG TABLET PO PRN ×3 (06:28→17:54)
--- NOTE | 2018-10-01 07:29 | US ARTERIAL DOPPLER REPORT ---
EXAM: BILATERAL LOWER EXTREMITY ARTERIAL DUPLEX ULTRASOUND HISTORY: WEAK PULSES. TECHNIQUE: Routine bilateral lower extremity arterial Duplex ultrasound was obtained. Comparison: Bilateral lower extremity Duplex arterial ultrasound 08/14/18. FINDINGS: 3 Right Waveform Left Waveform Common Femoral Artery 72 cm/s Biphasic 61 cm/s Biphasic Profunda Femoral Artery 49 cm/s Biphasic 29 cm/s Monophasic Proximal Superficial Femoral Artery 77 cm/s Biphasic 69 cm/s Triphasic Mid Superficial Femoral Artery 61 cm/s Biphasic 70 cm/s Triphasic Distal Superficial Femoral Artery 50 cm/s Biphasic 52 cm/s Biphasic Popliteal Artery 45 cm/s Biphasic 40 cm/s Biphasic Anterior Tibial Artery 27 cm/s Biphasic 35 cm/s Biphasic Posterior Tibial Artery 33 cm/s Biphasic 35 cm/s Biphasic Peroneal Artery 51 cm/s Biphasic 22 cm/s Biphasic Dorsalis Pedis Artery 13 cm/s Biphasic 34 cm/s Biphasic The right WESLEY was 1.4. The left WESLEY was 1.4. Calcified and noncalcified plaques noted diffusely throughout the areas of both lower extremities. IMPRESSION: NO EVIDENCE OF HEMODYNAMICALLY SIGNIFICANT FOCAL ARTERIAL STENOSIS IN EITHER LOWER EXTREMITY. FLOW IS DETECTED THROUGHOUT THE BILATERAL LOWER EXTREMITY ARTERIAL SYSTEMS WITH PREDOMINANTLY BIPHASIC WAVEFORMS. JOB NUMBER: [id number] [facility]
[2018-10-01] MEDS ORDERED: METHYLPREDNISOLONE 4 MG PO SCH (08:00)
[2018-10-01] MEDS: MIDODRINE HCL 5 MG TABLET PO SCH ×3 (09:44→23:00)
[2018-10-01] MEDS: BIFIDOBACTERIUM INFANTIS 4 MG CAPSULE PO SCH (09:44)
[2018-10-01] MEDS: SENNOSIDES/DOCUSATE SODIUM UD CAPSULE PO SCH ×2 (09:47→22:59)
[2018-10-01] MEDS: AMIODARONE HCL 200 MG TABLET PO SCH (09:47)
[2018-10-01] MEDS: COLLAGENASE 30 GM TUBE TOP SCH (09:48)
[2018-10-01] MEDS: ALBUTEROL SULFATE (0.083%) 2.5 MG/3 ML NEB INH PRN (10:48)
[2018-10-01] MEDS: BREO (FLUTICASONE/VILANTEROL) 200MCG/25MCG INHALER INH SCH (10:59)
[2018-10-01] MEDS: GABAPENTIN 100 MG CAPSULE PO SCH (17:54)
[2018-10-01] MEDS: WARFARIN 5 MG TAB PO SCH (17:55)
[2018-10-01] MEDS: ENOXAPARIN 100 MG/ML SYR SQ SCH (17:55)
[2018-10-01] MEDS: RANITIDINE HCL 150 MG TABLET PO SCH (22:59)
[2018-10-01] MEDS: ATORVASTATIN 20 MG TABLET PO SCH (22:59)
[2018-10-01] MEDS: LEVEMIR FLEXTOUCH 100 UNIT/ML INSULIN PEN SQ SCH (23:04)
[2018-10-02] MEDS: LEVOTHYROXINE SODIUM 125 MCG TABLET PO SCH (06:45)
[2018-10-02] MEDS ORDERED: METHYLPREDNISOLONE 4 MG PO SCH (08:00)
[2018-10-02] MEDS ORDERED: FENTANYL PF 100MCG/2ML VIAL IV ONE (09:06)
[2018-10-02] MEDS ORDERED: LIDOCAINE 2% MDV (20MG/ML) 20ML VIAL IV ONE (09:06)
[2018-10-02] MEDS ORDERED: PROPOFOL 10 MG/ML VIAL IV ONE (09:06)
[2018-10-02] MEDS: AMIODARONE HCL 200 MG TABLET PO SCH (10:25)
[2018-10-02] MEDS: BIFIDOBACTERIUM INFANTIS 4 MG CAPSULE PO SCH (10:26)
[2018-10-02] MEDS: OXYCODONE/APAP 10MG-325MG TABLET PO PRN ×2 (10:26→21:14)
[2018-10-02] MEDS: SENNOSIDES/DOCUSATE SODIUM UD CAPSULE PO SCH ×2 (10:26→21:13)
[2018-10-02] MEDS: COLLAGENASE 30 GM TUBE TOP SCH (10:27)
[2018-10-02] MEDS: TORSEMIDE 20 MG TABLET PO SCH (10:28)
[2018-10-02] MEDS: ALBUTEROL SULFATE (0.083%) 2.5 MG/3 ML NEB INH PRN (11:40)
[2018-10-02] MEDS: BREO (FLUTICASONE/VILANTEROL) 200MCG/25MCG INHALER INH SCH (11:40)
[2018-10-02 12:43] LABS: INR 1.5; PROTHROMBIN TIME (PATIENT) 14.8 SECONDS (9.5-12.1)
[2018-10-02 12:46] LABS: CREATININE 3.1 mg/dL (0.7-1.2)
[2018-10-02] MEDS: MIDODRINE HCL 5 MG TABLET PO SCH ×3 (14:41→22:28)
--- NOTE | 2018-10-02 14:50 | Occupational Therapy Tx Note ---
Occupational Therapy Tx Note - Treatment Note Tolerated: Fair Total Time Spent With Patient: 40 (ther ex, MTT) Occupational Therapy Treatment Note: Detail (S: Pt up in chair, sleeping. O: Pt amb to doorway and transported to rehab gym via wheelchair. Pt completed passive pulleys for doroteo shoulder flexion, horiz ab/adduction and ab/adduction x 8 min. Shoulder ladder doroteo shoulder flexion x 4 reps right and 3 reps left to rung 13 on right and 11 on left. Pt has increased pain with shoulder exercises today. PROM to doroteo shoulder flexion and abduction with sustained stretching to pts tolerance. Pt educated re: table top shoulder flexion stretches and he was able to demonstrate learning. MTT to doroteo shoulder and upper back musculature. Pt transported to room via wheelchair and required min assist for sit to stand from wheelchair. A: Pt continues with significant weakness and pain in doroteo shoulders.) Occupational Therapy Problem List: Detail (1. Decreased UE ROM and strength. 2. Decreased tolerance to activity needed for safe and Ind ADLs. 3. Need to further assess ADLs.) Occupational Therapy Goals: 1. Pt will improve doroteo shoulder AROM by 15 degrees to allow improve Ind with overhead ADLs. 2. Pt will improve doroteo bicep strength to 4+/5. 3. Pt will demonstrate improved endurance to allow safe and Ind self cares. Prognosis: Moderate Occupational Therapy Plan: OT 2-4 days per week to address UE ROM and strength, endurance and ADLs.
--- NOTE | 2018-10-02 15:29 | Physical Therapy Tx Note ---
Physical Therapy Tx Note - Treatment Note Tolerated: Fair Total Time Spent With Patient: 20 Physical Therapy Tx Note: Detail (The patient was seen in Rehab department. The patient reports the pain in his right groin region is gone however he complained of buttock region pain. The patient ambulated with front wheeled walker a distance of 20 feet x 1. The patient completed the Nu step x 16 minutes. The patient declined to ambulate after completing the Nu step. Discussed with patient goals and what he needed to practice prior to discharge. The patient stated he wanted to practice stair climbing and lifting up his leg when standing as required for transfer into his truck. Overall the patient's PT status has declined including decreased ambulation distance and decreased endurance for physical activity. PT goals have been revised due to decline in physical status.) Physical Therapy Problem List: Detail (1) Decreased LE strength 2) Decreased ability to complet physical activity 3) R groin pain which is limiting the patient's function 4) Assistance with transfers including car transfer and sit to stand from lower surface) Physical Therapy Goals: 1) Increase LE strength 1/3 muscle grade to improve the patient's ablity to complete functional activities. 2) The patient will ambulate on stairs with supervision for safety (Goal Met- however inconsistent. Patient had difficulty with stairs at home visit per daughter's report). 3) The patient will ambulate distances of 100 feet with assistive device independently. 4) The patient will be independent with all transfers (Goal Met - inconsist at times requires minimal PA with sit to and from stand and requires assist of 2 with truck transfer when returning from dialysis). 5) The patient will tolerate 30 minutes of physical activity with one rest period. 6) The patient will be able to lift R LE onto 4 inch step while standing as required for truck transfer. Prognosis: Moderate (The patient's prognosis is moderate to poor as physical status has declined.) Physical Therapy Plan: PT M-F 1-2 times a day for ambulation, LE strengthening exercises,transfer training, gait training on stairs and fuctional activities.
[2018-10-02] MEDS: WARFARIN 1 MG TABLET PO SCH (18:22)
[2018-10-02] MEDS: ENOXAPARIN 100 MG/ML SYR SQ SCH (18:23)
[2018-10-02] MEDS: GABAPENTIN 100 MG CAPSULE PO SCH (18:23)
[2018-10-02] MEDS: MAGNESIUM HYDROXIDE 30 ML UDC PO PRN (21:12)
[2018-10-02] MEDS: ATORVASTATIN 20 MG TABLET PO SCH (21:13)
[2018-10-02] MEDS: RANITIDINE HCL 150 MG TABLET PO SCH (21:13)
[2018-10-02] MEDS: LEVEMIR FLEXTOUCH 100 UNIT/ML INSULIN PEN SQ SCH (21:59)
[2018-10-03] MEDS: LEVOTHYROXINE SODIUM 125 MCG TABLET PO SCH (06:09)
[2018-10-03] MEDS ORDERED: METHYLPREDNISOLONE 4 MG PO SCH (08:00)
[2018-10-03] MEDS: BIFIDOBACTERIUM INFANTIS 4 MG CAPSULE PO SCH (09:35)
[2018-10-03] MEDS: AMIODARONE HCL 200 MG TABLET PO SCH (09:35)
[2018-10-03] MEDS: SENNOSIDES/DOCUSATE SODIUM UD CAPSULE PO SCH ×2 (09:35→22:05)
[2018-10-03] MEDS: OXYCODONE/APAP 10MG-325MG TABLET PO PRN ×3 (09:36→22:14)
[2018-10-03] MEDS: COLLAGENASE 30 GM TUBE TOP SCH (09:37)
[2018-10-03] MEDS: ALBUTEROL SULFATE (0.083%) 2.5 MG/3 ML NEB INH PRN (10:07)
[2018-10-03] MEDS: BREO (FLUTICASONE/VILANTEROL) 200MCG/25MCG INHALER INH SCH (10:11)
[2018-10-03] MEDS: MIDODRINE HCL 5 MG TABLET PO SCH ×3 (11:06→22:06)
[2018-10-03] MEDS ORDERED: WARFARIN 1 MG TABLET PO SCH (18:00)
[2018-10-03] MEDS: GABAPENTIN 100 MG CAPSULE PO SCH (18:21)
[2018-10-03] MEDS: ENOXAPARIN 100 MG/ML SYR SQ SCH (18:22)
[2018-10-03] MEDS: RANITIDINE HCL 150 MG TABLET PO SCH (22:04)
[2018-10-03] MEDS: ATORVASTATIN 20 MG TABLET PO SCH (22:04)
[2018-10-03] MEDS: LEVEMIR FLEXTOUCH 100 UNIT/ML INSULIN PEN SQ SCH (22:07)
[2018-10-04] MEDS: LEVOTHYROXINE SODIUM 125 MCG TABLET PO SCH (06:16)
[2018-10-04] MEDS ORDERED: METHYLPREDNISOLONE 4 MG PO SCH (08:00)
[2018-10-04] MEDS: BREO (FLUTICASONE/VILANTEROL) 200MCG/25MCG INHALER INH SCH (09:27)
[2018-10-04] MEDS: ALBUTEROL SULFATE (0.083%) 2.5 MG/3 ML NEB INH PRN (09:27)
[2018-10-04] MEDS: BIFIDOBACTERIUM INFANTIS 4 MG CAPSULE PO SCH (10:03)
[2018-10-04] MEDS: AMIODARONE HCL 200 MG TABLET PO SCH (10:03)
[2018-10-04] MEDS: SENNOSIDES/DOCUSATE SODIUM UD CAPSULE PO SCH ×2 (10:03→22:59)
[2018-10-04] MEDS: COLLAGENASE 30 GM TUBE TOP SCH (10:05)
[2018-10-04] MEDS: MIDODRINE HCL 5 MG TABLET PO SCH ×3 (10:05→21:50)
[2018-10-04] MEDS: TORSEMIDE 20 MG TABLET PO SCH (10:07)
--- NOTE | 2018-10-04 15:22 | CT SCAN REPORT ---
DATE: 10/02/2018. EXAM: CT OF THE BRAIN WITHOUT CONTRAST. HISTORY: BLURRED VISION. TECHNIQUE: Sequential axial images were obtained from the foramen magna to the vertex without contrast administration. FINDINGS: The brain volume is normal. There is periventricular small-vessel ischemic change. No large territorial infarct, hemorrhage, mass effect, or midline shift. The orbits, paranasal sinuses, and mastoid air cells are normal. IMPRESSION: 1. NO ACUTE INTRACRANIAL ABNORMALITIES APPRECIATED. 2. PERIVENTRICULAR SMALL-VESSEL ISCHEMIA. JOB NUMBER: [id number] [facility]
[2018-10-04] MEDS: OXYCODONE/APAP 10MG-325MG TABLET PO PRN ×2 (15:42→22:59)
[2018-10-04] MEDS: ENOXAPARIN 100 MG/ML SYR SQ SCH (17:27)
[2018-10-04] MEDS: WARFARIN 1 MG TABLET PO SCH (17:27)
[2018-10-04] MEDS: GABAPENTIN 100 MG CAPSULE PO SCH (17:27)
--- NOTE | 2018-10-04 18:14 | Physician Progress Note ---
Subjective - Date Date of Physician Progress Note: 10/04/18 - Subjective Subjective Comment: Pt reported double/blurred vision to nursing staff, reported that it started the previous day after returning from HD. EOMI intact, no visual field loss, NIH negative, denies headache or pain in eyes. Pupils are pinpoint as pt is on narcotic pain medications for chronic pain issues. CT head ordered, negative for acute process. Pt reports only new medication/changes was increased dosing of Midodrine from once before HD to tid. RX to be held. One dose given previous to HD but remaining held. Vision issues are reported as only near sight within 2 feet, 3 feet and past are normal. Pt has eye provider, daughter calling on friday to have acute visit, holding midodrine at this time and will contact nephrology about pt changes. Pt BP low but stable and asymptomatic of BP. Pt to continue current plan of care Objective - Vital Signs Vital Signs: Vital Signs - Last 24 Hrs Temp Pulse Pulse Resp BP BP Pulse Ox 10/04/18 17:24 97.7 F 89/56 10/04/18 09:37 86 16 99 10/04/18 08:00 97.7 F 83 18 89/56 98 10/03/18 20:00 97.2 F L 83 16 85/53 96 - General General Appearance: Alert, Oriented x3, Cooperative - Head Head exam: Atraumatic - Eye Eye exam: Normal appearance - ENT Mouth exam: Normal external inspection, Tongue normal - Neck Neck exam: Normal inspection - Respiratory Respiratory exam: Normal lung sounds bilaterally. negative: Respiratory distress - Cardiovascular Cardiovascular Exam: Regular rate, Normal rhythm, Normal heart sounds Peripheral Pulses: 2+: Radial (R), Radial (L) - GI/Abdominal GI/Abdominal exam: Soft, Normal bowel sounds. negative: Tenderness - Rectal Rectal exam: Deferred - exam: Deferred - Extremities Extremities exam: Other (bilateral lower extremity pitting edema, weeping, signficant erythema to BLE, worsened from yesterday) - Neurological Neurological exam: Oriented X3 - Psychiatric Psychiatric exam: Normal affect, Normal mood - Skin Skin exam: Abrasion (left elbow skin tear; RLE lateral abrasion), Other (stage II pressure ulcer on sacrum) Assessment and Plan - Assessment and Plan (1) Physical deconditioning Current Visit: No Status: Acute Base Code: R53.81 - OTHER MALAISE Priority : High Comment: 09/19/18: -Secondary to multiple hospitalizations, worsening of ESRD, dialysis, and CHF -PT/OT evaluation and treatment. 09/29/18 -HD, CHF, chronic wounds, per PT pt has recently had decline in strength and decreased PT tolerance -PT/OT continue (2) ESRD (end stage renal disease) Current Visit: Yes Status: Chronic Base Code: N18.6 - END STAGE RENAL DISEASE Comment: 09/29/18: -Dialysis T//Fri -Chip cath placed in right subclavian -Torsemide 10mg BID on Mondays only (will hold on Friday 09/21 due to change in dialysis schedule), Midodrine 10mg before HD -HD catheter dressing C/D/I -Daily weight, I/Os, continued fluid restricion. -09/29/18 pt to have dialysis care conference -labs reviewed (from 09/27/18) K slightly elevated HD today (3) MRSA (methicillin resistant staph aureus) culture positive Current Visit: Yes Status: Acute Base Code: Z22.322 - CARRIER OR SUSPECTED CARRIER OF METHICILLIN RESIS STAPH Comment: 09/19/18: - leg wound culture positive for MRSA, Enteroccocous feacalis, Proteus Mirabilis. - on day #9 of Augmentin and doxy (will continue until 09/23- pt. needs to d/c 7 days prior to scheduled rhizotomy on 09/30). 09/29/18 -abx were not d/c'd until 09/29/18 -wound cultures reviewed and susceptible to augmentin and doxy -continue bactroban topical with dressing changes -Wound care appt 10/07/18 Ileana (will discuse changing d/c date to 10/09/18 to involve new recommendations for chronic wound POC) (4) Bilateral lower extremity edema Current Visit: No Status: Acute Base Code: R60.0 - LOCALIZED EDEMA Comment : 09/29/18: - Chronic lower extremity edema with clear weeping discharge -Dressing changes daily and PRN (currently BID once with daughter and once with staff daily) -Dialysis T,Th,S, last session 09/17: 4 liters taken off. -Torsemide 10mg BID Mondays *09/29/18 doppler attempted not doroteo DP or PT noted* art US ordered (5) Atrial fibrillation Current Visit: No Status: Acute Base Code: I48.91 - UNSPECIFIED ATRIAL FIBRILLATION Comment: 09/29/18: -Continue Amiodarone 200mg q.am -Has AICD/PPM -hold coumadin, lovenox 100mg QD r/t facet rhizotomy 09/30/18 (6) COPD (chronic obstructive pulmonary disease) Current Visit: No Status: Chronic Base Code: J44.9 - CHRONIC OBSTRUCTIVE PULMONARY DISEASE, UNSPECIFIED Comment: 09/29/18: -Continue Breo -Continue Albuterol PRN (7) Diabetes Current Visit: No Status: Chronic Qualifiers: Diabetes mellitus type: type 2 Diabetes mellitus penitentiary insulin use: with penitentiary use Diabetes mellitus complication status: with hyperglycemia Qualified Code(s): E11.65 - Type 2 diabetes mellitus with hyperglycemia; Z79.4 - senior living (current) use of insulin Base Code: E11.9 - TYPE 2 DIABETES MELLITUS WITHOUT COMPLICATIONS Comment: : -Continue Levemir 10 units daily -Accuchecks AC & HS -ADA diet (8) Pressure ulcer Current Visit: Yes Status: Acute Qualifiers: Pressure injury location: other site Pressure injury stage: stage 2 Qualified Code(s): L89.892 - Pressure ulcer of other site, stage 2 Base Code: L89.90 - PRESSURE ULCER OF UNSPECIFIED SITE, UNSPECIFIED STAGE Comment: 09/29/18 -sacral stage II noted (documented on admission) -doroteo ishial tuberosity stage II -q2 hour turning ordered -duoderm daily and PRN (9) DVT prophylaxis Current Visit: No Status: Acute Base Code: [id number] - Comment: 09/29/18: -coumadin held r/t facet rhizotomy 09/30/18 -lovenox 100mg QD -Pharmacy to contact Dr Russ after procedure to get coumadin recommendations to bridge back (10) Full code status Current Visit: No Status: Acute Base Code: Z78.9 - OTHER SPECIFIED HEALTH STATUS Comment: 09/29/18: -Full code status (11) Visual disturbance Current Visit: Yes Status: Acute Base Code: H53.9 - UNSPECIFIED VISUAL DISTURBANCE Comment: 10/02/18 - pt reported double or blurred vision, near sight only normal far sight -ct hed ordered - ct neg acute process potential s/e midodrine Results - Labs Result Diagrams: 09/14/18 06:26 10/02/18 12:26 Labs Last 24 Hours: Laboratory Results - last 24 hr 10/03/18 10/04/18 22:00 07:00 POC Glucose 130 H 83 DVT/PE Assessment - Risk for VTE Risk for VTE: No Risk Level: Moderate Risk Assessment Date: 10/02/18 Risk Assessment Time: 08:00 VTE Orders Placed or Will Be Placed: No VTE Reason for No Prophylaxis: Contraindicated (pt on lovenox then coumadin) - Active Medicaitons Current Medications: Current Medications Hydrocodone Bitart/Acetaminophen ([place] 7.5mg/325mg) 1 each PO Q3H PRN PRN Reason: PAIN - MILD TO MODERATE (1-7) Hydrocodone Bitart/Acetaminophen ([place] 7.5mg/325mg) 2 each PO Q3H PRN PRN Reason: PAIN - MILD TO MODERATE (1-7) Last Admin: 10/04/18 07:33 Dose: 2 each Albuterol Sulfate () 2.5 mg INH RESP.Q4H.WA PRN PRN Reason: DIFFICULTY IN BREATHING Last Admin: 10/04/18 09:27 Dose: 2.5 mg Amiodarone HCl (Pacerone) 200 mg PO DAILY [facility] Last Admin: 10/04/18 10:03 Dose: 200 mg Atorvastatin Calcium (Lipitor) 20 mg PO QHS [facility] Last Admin: 10/03/18 22:04 Dose: 20 mg Collagenase (Santyl) 1 gm TOP DAILY [facility] Last Admin: 10/04/18 10:05 Dose: 1 gm Enoxaparin Sodium (Lovenox) 100 mg SQ 1800 [facility] Last Admin: 10/04/18 17:27 Dose: 100 mg Gabapentin (Neurontin) 100 mg PO 1800 [facility] Last Admin: 10/04/18 17:27 Dose: 100 mg Insulin Detemir (Levemir Flextouch) 6 unit SQ QHS [facility] Last Admin: 10/03/18 22:07 Dose: 6 unit Levothyroxine Sodium (Synthroid) 125 mcg PO DAILYTHY [facility] Last Admin: 10/04/18 06:16 Dose: 125 mcg Lidocaine HCl (Xylocaine 2% Jelly) 30 ml TOP Q4H PRN PRN Reason: PAIN - MILD TO MODERATE (1-7) Last Admin: 09/30/18 11:44 Dose: 30 ml Magnesium Hydroxide (Milk Of Magnesium) 30 ml PO DAILY PRN PRN Reason: INDIGESTION Last Admin: 10/02/18 21:12 Dose: 30 ml Methylprednisolone (Medrol Dose Pack) 4 mg PO DAILYWM [facility] Stop: 10/05/18 08:01 Midodrine (Midodrine Hcl) 10 mg PO 1100,1800,2200 [facility] Last Admin: 10/04/18 10:05 Dose: Not Given Ondansetron HCl (Zofran Odt) 4 mg SL Q6H PRN PRN Reason: NAUSEA/VOMITING Last Admin: 09/12/18 10:59 Dose: 4 mg Oxycodone/Acetaminophen (Percocet 5-325 Mg Tablet) 1 udtab PO Q4H PRN PRN Reason: PAIN - MOD TO SEVERE (5-10) Last Admin: 09/29/18 22:24 Dose: 1 udtab Oxycodone/Acetaminophen (Percocet 10-325 Mg Tablet) 1 each PO Q4H PRN PRN Reason: PAIN - MILD TO MODERATE (1-7) Last Admin: 10/01/18 23:00 Dose: 1 each Oxycodone/Acetaminophen (Percocet 10-325 Mg Tablet) 2 each PO Q4H PRN PRN Reason: PAIN - MILD TO MODERATE (1-7) Last Admin: 10/04/18 15:42 Dose: 2 each Polyethylene Glycol (Miralax) 17 gm PO DAILY PRN PRN Reason: CONSTIPATION Last Admin: 09/30/18 23:20 Dose: 17 gm Ranitidine HCl (Zantac) 150 mg PO QHS [facility] Last Admin: 10/03/18 22:04 Dose: 150 mg Senna/Docusate Sodium (Senna Plus) 2 each PO BID [facility] Last Admin: 10/04/18 10:03 Dose: 2 each Torsemide (Torsemide) 20 mg PO SuMoWeFr [facility] Last Admin: 10/04/18 10:07 Dose: 20 mg Warfarin Sodium (Coumadin) 2 mg PO TuSa [facility] Last Admin: 10/03/18 18:20 Dose: 2 mg Warfarin Sodium (Coumadin) 3 mg PO SuMoWeThFr [facility] Last Admin: 10/04/18 17:27 Dose: 3 mg Zinc Oxide (Desitin) 28.35 gm TOP ASDIR PRN PRN Reason: RASH Last Admin: 09/17/18 09:58 Dose: 28.35 gm AMI Plan - Labs Result Diagrams: 09/14/18 06:26 10/02/18 12:26
[2018-10-04] MEDS: POLYETHYLENE GLY 17 GM PACKET PO PRN (22:58)
[2018-10-04] MEDS: RANITIDINE HCL 150 MG TABLET PO SCH (22:59)
[2018-10-04] MEDS: ATORVASTATIN 20 MG TABLET PO SCH (22:59)
[2018-10-05] MEDS: LEVEMIR FLEXTOUCH 100 UNIT/ML INSULIN PEN SQ SCH (00:05)
[2018-10-05] MEDS: LEVOTHYROXINE SODIUM 125 MCG TABLET PO SCH (06:26)
[2018-10-05] MEDS ORDERED: METHYLPREDNISOLONE 4 MG PO SCH (08:00)
[2018-10-05] MEDS: OXYCODONE/APAP 10MG-325MG TABLET PO PRN (08:08)
--- NOTE | 2018-10-05 09:15 | Physician Progress Note ---
Subjective - Date Date of Progress Note: 10/05/18 - Admitting Diagnosis Diagnosis: Deconditioning secondary to fluid overload - Subjective Nursing Care Plan Problem List Activity Intolerance (Swing Bed) Start: 09/02/18 17: 44 Freq: Status: Active Protocol: Created 09/02/18 17:44 SS (Rec: 09/02/18 17:44 SS [id number]) Altered Thought Process (Fall Risk) Start: 09/02/18 17: 46 Freq: Status: Active Protocol: Created 09/02/18 17:46 SS (Rec: 09/02/18 17:46 SS [id number]) Impaired Mobility (Fall Risk) Start: 09/02/18 17: 46 Freq: Status: Active Protocol: Created 09/02/18 17:46 SS (Rec: 09/02/18 17:46 SS [id number]) Knowledge Deficit (Swing Bed) Start: 09/02/18 17: 44 Freq: Status: Active Protocol: Created 09/02/18 17:44 SS (Rec: 09/02/18 17:44 SS [id number]) Pain (Swing Bed) Start: 09/02/18 17: 44 Freq: Status: Active Protocol: Created 09/02/18 17:44 SS (Rec: 09/02/18 17:44 SS [id number]) Risk for Injury (Fall Risk) Start: 09/02/18 17: 46 Freq: Status: Active Protocol: Created 09/02/18 17:46 SS (Rec: 09/02/18 17:46 SS [id number]) Subjective: pt slept in bed last night, this AM had more pain than usual. Got his pain medication, was assisted to bed by staff. Pt was noted to be pale, tremorous and reports feeling ill. BP SBP 75, glucose 77. Pt has historical low BP and has not been able to take his midodrine. Pt given juice and immediately began to feel better. Repeat glucose in 15 min with repeat BP. Adding PB to apples for protein. Contacting Nephrology re: vision changes from midodrine increase. CT negative. awaiting response from nephrology 0900 pt repeat BP SBP 56, Rapid Reponse called Pt assisted back to bed General - Cognitive Patterns Speech: Normal Thought Process: Intact Thought Content: Normal - Communication Select best description of speech pattern: Clear Speech Ability to express ideas and wants: Understood Understanding verbal content: Understands - Mood and Behavior Patterns Appearance: Well Groomed Mood: Normal Attitude: Cooperative Motor Activity: Calm Affect: Appropriate - Physical Functioning Activity Level: Up with assist x1 Turning: With partial assist ROM Ability: Moves all extremities Assistive Devices: 2 Wheel Walker Activity Level Comment: Pt up in room and to bathroom Ambulation Ability: Needs Assist Bed Mobility: Needs Assist Transfer Ability: Independent Bathing Ability: Needs Assist Personal Hygiene: Independent Dressing Ability: Needs Assist Eating (Feeding) Ability: Independent Toileting Ability: Independent Administer Own Medication: Independent Care Ability Comment: Standby assist when ambulating. Needs help getting out of bed. - Continence Bowel Pattern: Normal for Patient Bladder Pattern: Normal Meds/Allergies - Allergies Allergies Allergy/AdvReac Type Severity Reaction Status Date / Time onion Allergy Intermediate NAUSEA Verified 01/30/16 14:13 rivaroxaban [From Xarelto] AdvReac Severe BRUISING Verified 04/10/18 10:00 - Active Medications Current Medications Hydrocodone Bitart/Acetaminophen ([place] 7.5mg/325mg) 1 each PO Q3H PRN PRN Reason: PAIN - MILD TO MODERATE (1-7) Hydrocodone Bitart/Acetaminophen ([place] 7.5mg/325mg) 2 each PO Q3H PRN PRN Reason: PAIN - MILD TO MODERATE (1-7) Last Admin: 10/04/18 07:33 Dose: 2 each Albuterol Sulfate () 2.5 mg INH RESP.Q4H.WA PRN PRN Reason: DIFFICULTY IN BREATHING Last Admin: 10/04/18 09:27 Dose: 2.5 mg Amiodarone HCl (Pacerone) 200 mg PO DAILY [facility] Last Admin: 10/04/18 10:03 Dose: 200 mg Atorvastatin Calcium (Lipitor) 20 mg PO QHS [facility] Last Admin: 10/04/18 22:59 Dose: 20 mg Collagenase (Santyl) 1 gm TOP DAILY [facility] Last Admin: 10/04/18 10:05 Dose: 1 gm Enoxaparin Sodium (Lovenox) 100 mg SQ 1800 [facility] Last Admin: 10/04/18 17:27 Dose: 100 mg Gabapentin (Neurontin) 100 mg PO 1800 [facility] Last Admin: 10/04/18 17:27 Dose: 100 mg Insulin Detemir (Levemir Flextouch) 6 unit SQ QHS [facility] Last Admin: 10/05/18 00:05 Dose: 6 unit Levothyroxine Sodium (Synthroid) 125 mcg PO DAILYTHY [facility] Last Admin: 10/05/18 06:26 Dose: 125 mcg Lidocaine HCl (Xylocaine 2% Jelly) 30 ml TOP Q4H PRN PRN Reason: PAIN - MILD TO MODERATE (1-7) Last Admin: 09/30/18 11:44 Dose: 30 ml Magnesium Hydroxide (Milk Of Magnesium) 30 ml PO DAILY PRN PRN Reason: INDIGESTION Last Admin: 10/02/18 21:12 Dose: 30 ml Midodrine (Midodrine Hcl) 10 mg PO 1100,1800,2200 [facility] Last Admin: 10/04/18 21:50 Dose: Not Given Ondansetron HCl (Zofran Odt) 4 mg SL Q6H PRN PRN Reason: NAUSEA/VOMITING Last Admin: 09/12/18 10:59 Dose: 4 mg Oxycodone/Acetaminophen (Percocet 5-325 Mg Tablet) 1 udtab PO Q4H PRN PRN Reason: PAIN - MOD TO SEVERE (5-10) Last Admin: 09/29/18 22:24 Dose: 1 udtab Oxycodone/Acetaminophen (Percocet 10-325 Mg Tablet) 1 each PO Q4H PRN PRN Reason: PAIN - MILD TO MODERATE (1-7) Last Admin: 10/01/18 23:00 Dose: 1 each Oxycodone/Acetaminophen (Percocet 10-325 Mg Tablet) 2 each PO Q4H PRN PRN Reason: PAIN - MILD TO MODERATE (1-7) Last Admin: 10/05/18 08:08 Dose: 2 each Polyethylene Glycol (Miralax) 17 gm PO DAILY PRN PRN Reason: CONSTIPATION Last Admin: 10/04/18 22:58 Dose: 17 gm Ranitidine HCl (Zantac) 150 mg PO QHS [facility] Last Admin: 10/04/18 22:59 Dose: 150 mg Senna/Docusate Sodium (Senna Plus) 2 each PO BID [facility] Last Admin: 10/04/18 22:59 Dose: 2 each Torsemide (Torsemide) 20 mg PO SuMoWeFr [facility] Last Admin: 10/04/18 10:07 Dose: 20 mg Warfarin Sodium (Coumadin) 2 mg PO TuSa [facility] Last Admin: 12/01/18 18:20 Dose: 2 mg Warfarin Sodium (Coumadin) 3 mg PO SuMoWeThFr [facility] Last Admin: 10/04/18 17:27 Dose: 3 mg Zinc Oxide (Desitin) 28.35 gm TOP ASDIR PRN PRN Reason: RASH Last Admin: 09/17/18 09:58 Dose: 28.35 gm Objective - Vital Signs Vital Signs: Vital Signs - Last 24 Hrs Temp Pulse Pulse Resp BP BP Pulse Ox 10/04/18 20:00 97.7 F 85 18 105/73 95 10/04/18 17:24 97.7 F 89/56 10/04/18 09:37 86 16 99 H&P Results - Labs Result Diagrams: 10/05/18 09:01 10/05/18 09:01 Labs Last 24 Hours: Laboratory Results - last 24 hr 10/04/18 10/05/18 21:56 07:00 POC Glucose 159 H 116 H Discharge Potential - Discharge Needs Patient Discharge Plan Description: Return Home Plan - Swing Bed Certification Initial Certification Due: 09/02/18 14 Day Re-Cert Due: 09/16/18 44 Day Re-Cert Due: 10/16/18 74 Day Re-Cert Due: 11/15/18 - Detailed Diagnosis and Plan (1) Physical deconditioning Current Visit: No Status: Acute Base Code: R53.81 - OTHER MALAISE Priority : High Comment: 09/19/18: -Secondary to multiple hospitalizations, worsening of ESRD, dialysis, and CHF -PT/OT evaluation and treatment. 09/29/18 -HD, CHF, chronic wounds, per PT pt has recently had decline in strength and decreased PT tolerance -PT/OT continue (2) ESRD (end stage renal disease) Current Visit: Yes Status: Chronic Base Code: N18.6 - END STAGE RENAL DISEASE Comment: 09/29/18: -Dialysis T/TH/Sat -Chip cath placed in right subclavian -Torsemide 10mg BID on Mondays only (will hold on Friday 09/21 due to change in dialysis schedule), Midodrine 10mg before HD -HD catheter dressing C/D/I -Daily weight, I/Os, continued fluid restricion. -09/29/18 pt to have dialysis care conference -labs reviewed (from 09/27/18) K slightly elevated HD today (3) MRSA (methicillin resistant staph aureus) culture positive Current Visit: Yes Status: Acute Base Code: Z22.322 - CARRIER OR SUSPECTED CARRIER OF METHICILLIN RESIS STAPH Comment: 09/19/18: - leg wound culture positive for MRSA, Enteroccocous feacalis, Proteus Mirabilis. - on day #9 of Augmentin and doxy (will continue until 09/23- pt. needs to d/c 7 days prior to scheduled rhizotomy on 09/30). 09/29/18 -abx were not d/c'd until 09/29/18 -wound cultures reviewed and susceptible to augmentin and doxy -continue bactroban topical with dressing changes -Wound care appt 10/07/18 Ileana (will discuse changing d/c date to 10/09/18 to involve new recommendations for chronic wound POC) (4) Bilateral lower extremity edema Current Visit: No Status: Acute Base Code: R60.0 - LOCALIZED EDEMA Comment : 09/29/18: - Chronic lower extremity edema with clear weeping discharge -Dressing changes daily and PRN (currently BID once with daughter and once with staff daily) -Dialysis T,Th,S, last session 09/17: 4 liters taken off. -Torsemide 10mg BID Mondays *09/29/18 doppler attempted not doroteo DP or PT noted* art US ordered (5) Atrial fibrillation Current Visit: No Status: Acute Base Code: I48.91 - UNSPECIFIED ATRIAL FIBRILLATION Comment: 09/29/18: -Continue Amiodarone 200mg q.am -Has AICD/PPM -hold coumadin, lovenox 100mg QD r/t facet rhizotomy 09/30/18 (6) COPD (chronic obstructive pulmonary disease) Current Visit: No Status: Chronic Base Code: J44.9 - CHRONIC OBSTRUCTIVE PULMONARY DISEASE, UNSPECIFIED Comment: 09/29/18: -Continue Breo -Continue Albuterol PRN (7) Diabetes Current Visit: No Status: Chronic Qualifiers: Diabetes mellitus type: type 2 Diabetes mellitus lab[employer] insulin use: with prison use Diabetes mellitus complication status: with hyperglycemia Qualified Code(s): E11.65 - Type 2 diabetes mellitus with hyperglycemia; Z79.4 - care home (current) use of insulin Base Code: E11.9 - TYPE 2 DIABETES MELLITUS WITHOUT COMPLICATIONS Comment: : -Continue Levemir 10 units daily -Accuchecks AC & HS -ADA diet (8) Pressure ulcer Current Visit: Yes Status: Acute Qualifiers: Pressure injury location: other site Pressure injury stage: stage 2 Qualified Code(s): L89.892 - Pressure ulcer of other site, stage 2 Base Code: L89.90 - PRESSURE ULCER OF UNSPECIFIED SITE, UNSPECIFIED STAGE Comment: 09/29/18 -sacral stage II noted (documented on admission) -doroteo ishial tuberosity stage II -q2 hour turning ordered -duoderm daily and PRN (9) DVT prophylaxis Current Visit: No Status: Acute Base Code: [id number] - Comment: 09/29/18: -coumadin held r/t facet rhizotomy 09/30/18 -lovenox 100mg QD -Pharmacy to contact Dr Russ after procedure to get coumadin recommendations to bridge back (10) Full code status Current Visit: No Status: Acute Base Code: Z78.9 - OTHER SPECIFIED HEALTH STATUS Comment: 09/29/18: -Full code status
[2018-10-05 09:22] LABS: INR 3.6; PROTHROMBIN TIME (PATIENT) 34.8 SECONDS (9.5-12.1)
[2018-10-05 09:28] LABS: HEMATOCRIT 41.8 % (42.0-52.0); HEMOGLOBIN 13.6 gm/dl (14.0-18.0); MEAN CELL VOLUME 89.5 fl (81-97); MEAN CORPUSCULAR HEMOGLOBIN 29.1 pg (27-33); MEAN CORPUSCULAR HGB CONC 32.5 g/dl (32-36); MEAN PLATELET VOLUME 10.8 fl (7.4-10.4); PLATELET COUNT 187 K/uL (130-400); RED BLOOD COUNT 4.67 M/uL (4.40-5.70); RED CELL DISTRIBUTION WIDTH 16.9 % (11.5-14.5); WHITE BLOOD COUNT W/O DIFF 9.7 K/uL (4.2-12.2)
[2018-10-05 09:33] LABS: BILIRUBIN,TOTAL 0.4 mg/dL (0.2-1.0); CREATININE 3.8 mg/dL (0.7-1.2)
[2018-10-05 09:34] LABS: TOTAL PROTEIN 6.3 g/dL (6.6-8.7)
[2018-10-05 09:39] LABS: ALB/GLOB RATIO 1.3 (1.1-1.8); ALBUMIN 3.6 g/dL (4.0-5.0)
[2018-10-05] MEDS: BIFIDOBACTERIUM INFANTIS 4 MG CAPSULE PO SCH (10:30)
[2018-10-05] MEDS ORDERED: TAZOBACTAM IVPB ONE (10:30)
[2018-10-05] MEDS: SENNOSIDES/DOCUSATE SODIUM UD CAPSULE PO SCH (10:30)
[2018-10-05] MEDS ORDERED: PIPERACILLIN SODIUM IVPB ONE (10:30)
[2018-10-05] MEDS ORDERED: SODIUM CHLORIDE 0.9% IVPB ONE (10:30)
[2018-10-05] MEDS: AMIODARONE HCL 200 MG TABLET PO SCH (10:30)
[2018-10-05] MEDS: MIDODRINE HCL 5 MG TABLET PO SCH (10:34)
[2018-10-05] MEDS: ALBUTEROL SULFATE (0.083%) 2.5 MG/3 ML NEB INH PRN (10:36)
[2018-10-05] MEDS: BREO (FLUTICASONE/VILANTEROL) 200MCG/25MCG INHALER INH SCH (10:36)
--- NOTE | 2018-10-05 10:54 | Discharge Note ---
VTE H&P Assessment - Risk for VTE Risk for VTE: Yes Risk Level: Moderate Risk Assessment Date: 10/02/18 Risk Assessment Time: 08:00 VTE Orders Placed or Will Be Placed: No VTE Reason for No Prophylaxis: Contraindicated (pt on lovenox then coumadin) Discharge Medications - Discharge Medications Home Medications: Ambulatory Orders Ascorbic Acid [Vitamin C] 1,000 mg PO BID 11/02/16 [Last Taken 04/14/17] Ferrous Sulfate 325 mg PO DAILY 11/02/16 [Last Taken 04/14/17] Hydromorphone HCl [Dilaudid] 1 mg PO CONT 11/02/16 [Last Taken 04/15/17] Insulin Detemir [Levemir] 6 unit SQ QHS 11/02/16 [Last Taken 04/14/17] Multivit-Min/FA/Lycopen/Lutein [Centrum Silver Tablet] 1 each PO DAILY 11/02/16 [Last Taken 04/14/17] Oxycodone HCl/Acetaminophen [Percocet 10mg/325mg] 1 - 2 tab PO Q4H PRN 11/02/16 [Last Taken 04/14/17] Tamsulosin HCl [Flomax] 0.4 mg PO DAILY 11/02/16 [Last Taken 04/14/17] Warfarin Sodium [Coumadin] 3 mg PO DAILY 11/02/16 [Last Taken 09/03/17 17:00] Cholecalciferol (Vitamin D3) [Vitamin D3] 5,000 unit PO DAILY 02/25/17 [Last Taken 04/14/17] Clotrimazole/Betamethasone Dip [Clotrimazole-Betamethasone Crm] 15 gm TP BID [Last Taken 04/14/17] Levalbuterol Tartrate [Xopenex Hfa] 2 puff INH RESP.Q6H PRN 02/25/17 [Last Taken 04/14/17] Sennosides/Docusate Sodium [Senna-Docusate Sodium Tablet] 2 each PO QHS [Last Taken 04/14/17] Fluticasone/Salmeterol [Advair 250-50 Diskus] 1 each IH BID 09/07/17 [Last Taken Unknown] Bumetanide [Bumex] 2 mg PO BIDDIUR tablet 09/22/17 [Last Taken Unknown] Levothyroxine Sodium [Synthroid] 125 mcg PO DAILYTHY tablet 09/22/17 [Last Taken Unknown] Oxycodone HCl/Acetaminophen [Percocet 10mg/325mg] 1 each PO Q4H PRN tablet [Last Taken Unknown] Oxycodone HCl/Acetaminophen [Percocet 5mg/325mg] 1 udtab PO Q6H PRN tablet [Last Taken Unknown] Atorvastatin Calcium 20 mg PO DAILY #30 tablet 11/13/17 [Last Taken Unknown] Magnesium 400 mg PO DAILY #0 11/13/17 [Last Taken 04/14/17] Metolazone [Zaroxolyn] 2.5 mg PO DAILY #30 tablet 11/13/17 [Last Taken Unknown] Metoprolol Succinate [Toprol Xl] 12.5 mg PO DAILY #30 tab.er.24h 11/13/17 [Last Taken Unknown] Potassium Chloride [Klor-Con] 40 meq PO TIDAC #180 tablet.sa 11/13/17 [Last Taken Unknown] Bifidobacterium Infantis [Align] 4 mg PO DAILY #30 capsule 01/19/18 [Last Taken Unknown] Albuterol Sulfate [Ventolin Hfa] 2 puff INH Q4H PRN inhaler 03/07/18 [Last Taken Unknown] Amiodarone HCl [Pacerone] 200 mg PO DAILY tablet 03/07/18 [Last Taken Unknown] Ascorbic Acid [Vitamin C] 1,000 mg PO BID tab 03/07/18 [Last Taken Unknown] Ferrous Sulfate [Iron] 325 mg PO WMEALS tablet 03/07/18 [Last Taken Unknown] Fluticasone/Vilanterol 200/25 [Breo Ellipta 200-25 Mcg INH] 1 puff INH DAILY inhaler 03/07/18 [Last Taken Unknown] Insulin Detemir [Levemir Flextouch] 6 unit SQ QHS syringe 03/07/18 [Last Taken Unknown] Levothyroxine Sodium [Synthroid] 150 mcg PO DAILYTHY tab 03/07/18 [Last Taken Unknown] Magnesium Oxide [Mag Ox] 400 mg PO BID tab 03/07/18 [Last Taken Unknown] Metolazone [Zaroxolyn] 2.5 mg PO TuSa tablet 03/07/18 [Last Taken Unknown] Metoprolol Succinate [Toprol Xl] 12.5 mg PO DAILY tab.er.24h 03/07/18 [Last Taken Unknown] Multivitamin/Iron/Folic Acid [Centrum] 1 tab PO DAILY tablet 03/07/18 [Last Taken Unknown] Ondansetron [Zofran Odt] 4 mg SL Q6H PRN tab.rapdis 03/07/18 [Last Taken Unknown] Oxycodone HCl/Acetaminophen [Percocet 10mg/325mg] 1 each PO Q6H PRN tablet 03/20 [Last Taken Unknown] Oxycodone HCl/Acetaminophen [Percocet 10mg/325mg] 2 each PO Q6H PRN tablet 03/20 [Last Taken Unknown] Polyethylene Glycol 3350 [Miralax] 17 gm PO QHS packet 03/07/18 [Last Taken Unknown] Potassium Chloride [Klor-Con] 40 meq PO BID tablet.sa 03/07/18 [Last Taken Unknown] Sennosides/Docusate Sodium [Senna Plus] 2 each PO QHS capsule 03/07/18 [Last Taken Unknown] Tamsulosin HCl [Flomax] 0.4 mg PO QHS cap.er.24h 03/07/18 [Last Taken Unknown] Torsemide 20 mg PO [id number] tablet 03/07/18 [Last Taken Unknown] Torsemide 40 mg PO DAILY tablet 03/07/18 [Last Taken Unknown] Warfarin Sodium [Coumadin] 2 mg PO [id number] tablet 03/07/18 [Last Taken Unknown] Warfarin Sodium [Coumadin] 3 mg PO TuSa tablet 03/07/18 [Last Taken Unknown] Albuterol Sulfate 0.083% [Neb] 2.5 mg INH RESP.Q4H PRN nebulization solution [Last Taken Unknown] Allopurinol [Zyloprim] 100 mg PO DAILY tablet 08/20/18 [Last Taken Unknown] Amiodarone HCl [Pacerone] 200 mg PO DAILY tablet 08/20/18 [Last Taken Unknown] Ascorbic Acid [Vitamin C] 1,000 mg PO BID tab 08/20/18 [Last Taken Unknown] Ferrous Sulfate [Iron] 325 mg PO WMEALS tablet 08/20/18 [Last Taken Unknown] Fluticasone/Vilanterol 200/25 [Breo Ellipta 200-25 Mcg INH] 1 puff INH DAILY inhaler 08/20/18 [Last Taken Unknown] Insulin Detemir [Levemir Flextouch] 10 unit SQ QHS syringe 08/20/18 [Last Taken Unknown] Levothyroxine Sodium [Synthroid] 125 mcg PO DAILYTHY tablet 08/20/18 [Last Taken Unknown] Magnesium Oxide [Mag Ox] 400 mg PO DAILY tab 08/20/18 [Last Taken Unknown] Metoprolol Succinate [Toprol Xl] 25 mg PO DAILY tab.er.24h 08/20/18 [Last Taken Unknown] Multivitamin/Iron/Folic Acid [Centrum] 1 tab PO DAILY tablet 08/20/18 [Last Taken Unknown] Oxycodone HCl/Acetaminophen [Percocet 10mg/325mg] 1 each PO Q4H PRN tablet [Last Taken Unknown] Polyethylene Glycol 3350 [Miralax] 17 gm PO QHS packet 08/20/18 [Last Taken Unknown] Ranitidine HCl [Zantac] 150 mg PO BID tablet 08/20/18 [Last Taken Unknown] Sennosides/Docusate Sodium [Senna Plus] 2 each PO QHS capsule 08/20/18 [Last Taken Unknown] Tamsulosin HCl [Flomax] 0.4 mg PO QHS cap.er.24h 08/20/18 [Last Taken Unknown] Torsemide 10 mg PO BIDDIUR tablet 08/20/18 [Last Taken Unknown] Warfarin Sodium [Coumadin] 2 mg PO TuSa tablet 08/20/18 [Last Taken Unknown] Warfarin Sodium [Coumadin] 3 mg PO [id number] tablet 08/20/18 [Last Taken Unknown] Discharge Note - Date Date of Discharge Note: 10/05/18 Disposition: Acute Care Hospital Transfer Condition: (4) Poor Additional Instructions: Pt appears to be septic. BP lower than pt normal, weakness, chills, read streaking up right leg. Pt has chronic BLE wounds that appear worse in the last 24 hours, increased drainage. BC x2 completed, labs show elevated trop 0.268, EKG afib Vpaced, elevated neutrophils. Procalcitonin still pending. Cubacin 500mg given, Zosyn 2.25 IVP infusion, NS [address] bolus over [address] Lizandro coles accepting pt to step down. Pt is a&ox4, blood sugars have been 75-88. Awaiting transfer. Referrals: EWELINA MALIN [Primary Care Provider] -
[2018-10-05] MEDS ORDERED: DAPTOMYCIN 500 MG/VIAL IV ONE (11:00)
--- NOTE | 2018-10-05 13:11 | Rehab Discharge Summary ---
Patient Information - Patient Information Diagnosis: Deconditioning secondary to fluid overload Ordered Treatment: PT Evaluate and Treat Surgery: No Past Medical/Surgical Hx: PAST MEDICAL/SURGICAL HISTORY Past Surgical History multiple back injs rhizos etc pump trial with dilaudid implanted cath ( permanent device in place) Back surgery X5, neck surgery, Hip & shoulder sx ,Bunionectomy,bilat right hip replacement, AICD , abscess rt thigh, septic hip, hematoma rt thigh , revision x2, evac of hematoma post rt hip; lumbar rhizotomy 05/31/15. permanent pain pump 2015 C2-3 lminectomy 09/19 rt hip arthroplasty 01/18 PMH - Respiratory Hx Respiratory Disorders Yes Hx Asthma Yes Hx Bronchitis No Hx Chronic Obstructive Yes Pulmonary Disease (COPD) Hx Dyspnea Yes: "very slight" Hx Pneumonia Yes: 1989, 2016 Hx Pulmonary Embolism No Hx Sleep Apnea No Hx Tuberculosis No Hx of CPAP No Hx of SOB Yes: CHF PMH - Cardiovascular Hx Cardiovascular Disorders Yes Hx Abnormal EKG Yes: NSR now Hx Cardiac Catheterization No Hx Chest Pain No Hx Congestive Heart Failure Yes Hx Deep Vein Thrombosis Yes: none since 01/2017 Hx Edema Yes: bilat legs recent hospitalization Hx Heart Attack No Hx Hypertension Yes Hx Irregular Heartbeat Yes: hx a fib had cardioversion 1990 & 01/2017 Hx Palpitations No Hx Pacemaker/Defibrillator Yes: 2014 Hx Vascular Disease Yes Hx Transient Ischemic Attacks No (TIA) Comment: hospitalizations states cardiac arrest during past hospitalization 07/18 PMH - Neuro Hx Neurological Disorders No Hx Brain Tumor No Hx Cerebrovascular Accident No Hx Dementia No Hx Dizziness No Hx Headaches No Hx Neuropathy Yes Hx Parkinson's Disease No Hx Seizures No: denies Hx Speech Problem No Hx Syncope No Hx Transient Ischemic Attacks No (TIA) Hx Weakness Yes: rt hip weak PMH - GI Hx Gastrointestinal Disorders Yes Hx Abdominal Pain No Hx Celiac Disease No Hx Crohn's Disease No Hx Diverticulitis No Hx Gastrointestinal Bleed No Hx Gastroesophageal Reflux Yes: denies reflux on Zantac Hx Hepatitis/Jaundice No Hx Hiatal Hernia No Hx Irritable Bowel No Hx Liver Disease No Hx Nausea/Vomiting No Hx Obstructive Bowel No Hx Pancreatitis No Hx Rectal Bleeding No Hx Ulcer No Hx Weight Loss/Weight Gain No PMH - Hx Genitourinary Disorders Yes Hx Bladder Problem No Hx Dialysis Yes: scheduled tue,thur,sat Hx Kidney Stones No Hx Prostate Problems No: denies Hx Renal Disease Yes: functioning ok per renal DR Hx Urinary Tract Infection No PMH - Endocrine Hx Endocrine Disorders Yes Hx Diabetes Yes Hx Thyroid Disease No Hx of NIDDM Yes Hx of IDDM Yes Comment: Last accu 147 today PMH - Musculoskeletal Hx Musculoskeletal Disorders Yes Hx Arthritis Yes Hx Back Injury Yes Hx Fibromyalgia No Hx Gout No Hx Musculoskeletal Disease Yes Hx Osteoporosis No Comment: chronic pain; hx septic hip in past PMH - Psych Hx Psychiatric Problems Yes Hx Anxiety No Hx Behavior Problems No Hx Depression Yes Hx Emotional Abuse No Hx Sexual Abuse No Hx Suicide Attempt No Major Depressive Episode No Feelings of Hopelessness No PMH - Hematology/Oncology Hx Hematology/Oncology Yes Disorders Hx Anemia Yes Hx Blood Disorders No Hx Bruising Yes Hx Cancer Yes: skin Hx Clotting Problems Yes Hx Sickle Cell Disease No Hx Unexplained Bleeding No Hx Blood Transfusion Reaction No Comment: pt to bridge with Lovenox 4 days preop Premorbid Status: Detail (The patient prior to readmission was ambulatory household distances with 2 wheeled walker and acheiving sit to stand from lower surface with moderate PA and independent from higher surface. The patient exhibited shortness of breath at times with activity.) Social History: Detail (The patient lives alone in a one story house with 3 step at the entry and 1 railing. The patient's bathroom has a [id number] ( typically stands) with grab bar and head held shower, elevated toilet seat with grab bars. The patient has a 2 wheeled walker, standard cane, multiple reaches, sock aide and velcro shoes.) Precautions: [place], Fall Subjective Information - Subjective Information Per Patient (The patient had complaints of right groin region and lower back pain with varying intensity.) Objective Data - Mental Status Patient Orientation: Oriented x3 - Visual Perception Appears within normal limits for therapeutic activities - ROM Not within normal limits (The patient's ROM is WNL except for R hip which was not tested due to pain.) - Strength/Tone Not within normal limits (The patient's LE strength was not formally retested however strength is generally in hip musculature R 3 to 4-/5, L 4-/5 to 4/5, knee R 4- to 4/5, ankle L 4+ to 5/5, R 4- to 4/5.) - Transfers Needs Assist (The patient was independent with sit to and from stand transfer from higher surface. The patient required minimal to moderate PA of 1 with sit to stand transfer from lower surface. The patient required moderate to maximal PA with car transfer depending on patient's fatigue level after returning from dialysis.) - Balance Balance Sitting: Good Balance Standing: Fair (The patient is able to stand without support briefly. The patient requires support of walker to ambulate.) - Gait Detail (The patient's ambulation distance declined throughout rehab stay. Initially the patient was able to ambulate with a front wheeled walker a distance of 120 feet with 1-2 rest periods with supervision for safety only. Last PT session the patient ambulated aprox. 20 feet before fatiguing. The patient initially ambulated on three steps with standard cane and railing with CG of 1 for safety and increased complaints of right groin pain. Stair climbing was not restested prior to discharge.) Therapy Assessment - Therapy Assessment Detail (The patient's status was declining in PT including requiring more assist with transfers, decreased ambulation distance and decreased ability to complete prolonged activity. The patient was transferred to acute care hospital due to declining medical status.) Problem List - Problem List Physical Therapy Problem List: Detail (1) Decreased LE strength 2) Decreased ability to complet physical activity 3) R groin pain which is limiting the patient's function 4) Assistance with transfers including car transfer and sit to stand from lower surface) Occupational Therapy Problem List: Detail (1. Decreased UE ROM and strength. 2. Decreased tolerance to activity needed for safe and Ind ADLs. 3. Need to further assess ADLs.) Goals - Goals Physical Therapy Goals: 1) Increase LE strength 1/3 muscle grade to improve the patient's ablity to complete functional activities (Not Met). 2) The patient will ambulate on stairs with supervision for safety (Goal Met- however inconsistent. Patient had difficulty with stairs at home visit per daughter's report). 3) The patient will ambulate distances of 100 feet with assistive device independently (Not Met -inconsistent). 4) The patient will be independent with all transfers (Goal Met - inconsist at times requires minimal PA with sit to and from stand and requires assist of 2 with truck transfer when returning from dialysis). 5) The patient will tolerate 30 minutes of physical activity with one rest period. ( Not Met). 6) The patient will be able to lift R LE onto 4 inch step while standing as required for truck transfer. (Not Met) Occupational Therapy Goals: 1. Pt will improve doroteo shoulder AROM by 15 degrees to allow improve Ind with overhead ADLs. 2. Pt will improve doroteo bicep strength to 4+/5. 3. Pt will demonstrate improved endurance to allow safe and Ind self cares. Plan - Plan Physical Therapy Plan: Patient was transferred to acute care hospital due to declining medical status. Occupational Therapy Plan: OT 2-4 days per week to address UE ROM and strength, endurance and ADLs.
--- NOTE | 2018-10-05 15:15 | Rehab Discharge Summary ---
Patient Information - Patient Information Diagnosis: Deconditioning secondary to fluid overload Ordered Treatment: OT Evaluate and Treat Surgery: No Past Medical/Surgical Hx: PAST MEDICAL/SURGICAL HISTORY Past Surgical History multiple back injs rhizos etc pump trial with dilaudid implanted cath ( permanent device in place) Back surgery X5, neck surgery, Hip & shoulder sx ,Bunionectomy,bilat right hip replacement, AICD , abscess rt thigh, septic hip, hematoma rt thigh , revision x2, evac of hematoma post rt hip; lumbar rhizotomy 05/31/15. permanent pain pump 2015 C2-3 lminectomy 09/19 rt hip arthroplasty 01/18 PMH - Respiratory Hx Respiratory Disorders Yes Hx Asthma Yes Hx Bronchitis No Hx Chronic Obstructive Yes Pulmonary Disease (COPD) Hx Dyspnea Yes: "very slight" Hx Pneumonia Yes: 1989, 2016 Hx Pulmonary Embolism No Hx Sleep Apnea No Hx Tuberculosis No Hx of CPAP No Hx of SOB Yes: CHF PMH - Cardiovascular Hx Cardiovascular Disorders Yes Hx Abnormal EKG Yes: NSR now Hx Cardiac Catheterization No Hx Chest Pain No Hx Congestive Heart Failure Yes Hx Deep Vein Thrombosis Yes: none since 01/2017 Hx Edema Yes: bilat legs recent hospitalization Hx Heart Attack No Hx Hypertension Yes Hx Irregular Heartbeat Yes: hx a fib had cardioversion 1990 & 01/2017 Hx Palpitations No Hx Pacemaker/Defibrillator Yes: 2014 Hx Vascular Disease Yes Hx Transient Ischemic Attacks No (TIA) Comment: hospitalizations states cardiac arrest during past hospitalization 07/18 PMH - Neuro Hx Neurological Disorders No Hx Brain Tumor No Hx Cerebrovascular Accident No Hx Dementia No Hx Dizziness No Hx Headaches No Hx Neuropathy Yes Hx Parkinson's Disease No Hx Seizures No: denies Hx Speech Problem No Hx Syncope No Hx Transient Ischemic Attacks No (TIA) Hx Weakness Yes: rt hip weak PMH - GI Hx Gastrointestinal Disorders Yes Hx Abdominal Pain No Hx Celiac Disease No Hx Crohn's Disease No Hx Diverticulitis No Hx Gastrointestinal Bleed No Hx Gastroesophageal Reflux Yes: denies reflux on Zantac Hx Hepatitis/Jaundice No Hx Hiatal Hernia No Hx Irritable Bowel No Hx Liver Disease No Hx Nausea/Vomiting No Hx Obstructive Bowel No Hx Pancreatitis No Hx Rectal Bleeding No Hx Ulcer No Hx Weight Loss/Weight Gain No PMH - Hx Genitourinary Disorders Yes Hx Bladder Problem No Hx Dialysis Yes: scheduled tue,thur,sat Hx Kidney Stones No Hx Prostate Problems No: denies Hx Renal Disease Yes: functioning ok per renal DR Hx Urinary Tract Infection No PMH - Endocrine Hx Endocrine Disorders Yes Hx Diabetes Yes Hx Thyroid Disease No Hx of NIDDM Yes Hx of IDDM Yes Comment: Last accu 147 today PMH - Musculoskeletal Hx Musculoskeletal Disorders Yes Hx Arthritis Yes Hx Back Injury Yes Hx Fibromyalgia No Hx Gout No Hx Musculoskeletal Disease Yes Hx Osteoporosis No Comment: chronic pain; hx septic hip in past PMH - Psych Hx Psychiatric Problems Yes Hx Anxiety No Hx Behavior Problems No Hx Depression Yes Hx Emotional Abuse No Hx Sexual Abuse No Hx Suicide Attempt No Major Depressive Episode No Feelings of Hopelessness No PMH - Hematology/Oncology Hx Hematology/Oncology Yes Disorders Hx Anemia Yes Hx Blood Disorders No Hx Bruising Yes Hx Cancer Yes: skin Hx Clotting Problems Yes Hx Sickle Cell Disease No Hx Unexplained Bleeding No Hx Blood Transfusion Reaction No Comment: pt to bridge with Lovenox 4 days preop Premorbid Status: Detail (The patient prior to readmission was ambulatory household distances with 2 wheeled walker and acheiving sit to stand from lower surface with moderate PA and independent from higher surface. The patient exhibited shortness of breath at times with activity.) Social History: Detail (The patient lives alone in a one story house with 3 step at the entry and 1 railing. The patient's bathroom has a [id number] ( typically stands) with grab bar and head held shower, elevated toilet seat with grab bars. The patient has a 2 wheeled walker, standard cane, multiple reaches, sock aide and velcro shoes.) Precautions: [place], Fall Subjective Information - Subjective Information Per Patient Objective Data - Pain Pain Present: Yes (Pt reports he has pain in doroteo shoulders and groin.) - Mental Status Patient Orientation: Oriented x3 - Visual Perception Appears within normal limits for therapeutic activities - ROM Not within normal limits (Objective measurements not formally taken due to pt being transferred to [facility]. Overall doroteo UE AROM status had improved initially but over the last week shoulder motion had declined.) - Strength/Tone Not within normal limits (Objective measurements not formally taken due to pt being transferred to [facility]. Overall doroteo UE strength had slightly improved initially but over the last week shoulder strength had declined and pain had worsened.) - Coordination Appears within normal limits for therapeutic activities - Transfers Needs Assist (Pt requires min assist for sit to stand from low surfaces, he is Ind with sit to stand from raised surfaces.) - Balance Balance Sitting: Good Balance Standing: Fair - Sensation Intact - Gait Detail (Pt ambulating short distances with 2 wheeled walker.) - ADL's/IADL's Detail (Pt had been Ind with self cares.) Therapy Assessment - Therapy Assessment Detail (Overall pts status had declined due to medical issues. He remains motivated to participate in therapy.) Problem List - Problem List Physical Therapy Problem List: Detail (1) Decreased LE strength 2) Decreased ability to complet physical activity 3) R groin pain which is limiting the patient's function 4) Assistance with transfers including car transfer and sit to stand from lower surface) Occupational Therapy Problem List: Detail (1. Decreased UE ROM and strength. 2. Decreased tolerance to activity needed for safe and Ind ADLs. 3. Need to further assess ADLs.) Goals - Goals Physical Therapy Goals: 1) Increase LE strength 1/3 muscle grade to improve the patient's ablity to complete functional activities. 2) The patient will ambulate on stairs with supervision for safety (Goal Met- however inconsistent. Patient had difficulty with stairs at home visit per daughter's report). 3) The patient will ambulate distances of 100 feet with assistive device independently. 4) The patient will be independent with all transfers (Goal Met - inconsist at times requires minimal PA with sit to and from stand and requires assist of 2 with truck transfer when returning from dialysis). 5) The patient will tolerate 30 minutes of physical activity with one rest period. 6) The patient will be able to lift R LE onto 4 inch step while standing as required for truck transfer. Occupational Therapy Goals: Goals not met: 1. Pt will improve doroteo shoulder AROM by 15 degrees to allow improve Ind with overhead ADLs. 2. Pt will improve doroteo bicep strength to 4+/5. 3. Pt will demonstrate improved endurance to allow safe and Ind self cares. Prognosis - Prognosis Poor (Poor at this time due to medical status.) Plan - Plan Physical Therapy Plan: PT M-F 1-2 times a day for ambulation, LE strengthening exercises,transfer training, gait training on stairs and fuctional activities. Occupational Therapy Plan: Pt discharged to [facility] due to declining medical status.
[2018-10-06] MEDS ORDERED: WARFARIN 1 MG TABLET PO SCH (16:00)
== END 2018-10-05 11:20 | disposition short-term general hospital (02) | DRG 683 ==
LOC: MEDSURG 17:16
PROVIDERS: ADMIT Internal Medicine; ATTEND Internal Medicine
DX: N18.6 End stage renal disease (principal); D68.61 Antiphospholipid syndrome; Z99.2 Dependence on renal dialysis; E87.79 Other fluid overload; L89.152 Pressure ulcer of sacral region, stage 2; Z22.322 Carrier or suspected carrier of Methicillin resistant Staphylococcus aureus; I50.9 Heart failure, unspecified; J44.9 Chronic obstructive pulmonary disease, unspecified; E11.65 Type 2 diabetes mellitus with hyperglycemia; Z79.4 Long term (current) use of insulin; D64.9 Anemia, unspecified; R06.00 Dyspnea, unspecified; E03.9 Hypothyroidism, unspecified; K21.9 Gastro-esophageal reflux disease without esophagitis; G89.29 Other chronic pain; Z96.643 Presence of artificial hip joint, bilateral; Z85.820 Personal history of malignant melanoma of skin; Z87.891 Personal history of nicotine dependence
CPT/HCPCS: 36416; 70450; 80048; 80053; 82948; 83735; 84145; 84484; 85025; 85027; 85610; 87040; 93005; 93925; 94640; 97110; 97140; 97530; 99306; 99308; 99309; J0878; J1650; J7509; J7613

== ENCOUNTER → 2018-09-30 | Day surgery (SDC) | payer MEDICARE, OTHER ==
--- NOTE | 2018-10-01 20:40 | Operative Note ---
DATE OF SURGERY: 09/30/2018. 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 SURGERY: RADIOFREQUENCY RHIZOTOMY BILATERAL LUMBAR FACETS 3-4, 4-5 AND 5-1. SURGEON: LAKHWINDER WALTERS D.O. ANESTHESIA: LOCAL SEDATION. ANESTHESIA PROVIDER: TIFFANY INDICATION: This patient presents with primary back pain. Examination showed tenderness in the lumbar spine. Range of motion does cause pain in the low back with extension. Diagnostics showed multilevel laminectomy and extensive and diffuse spondylosis. A facet series with 75% relief. Due to the failure of therapy and the success of the facet series, the patient presents for rhizotomy for more long-term relief. SURGERY: Intravenous line, vital sign monitoring, IV sedation, prepped and draped, sterile technique. Facet levels in the lumbar spine in the area of pain were identified and marked at 3-4, 4-5 and 5-1 bilateral. Each one of these points on the skin infiltrated. A #20 gauge rhizotomy cannula positioned. Stimulation trials conducted. Rhizotomy burn performed. Local with anti- inflammatory into the sites. Topical antibiotics. Sterile dressing applied. We will monitor and evaluate. cc: Dr. Elan Aleman [facility]: [id number] [facility]
== END | disposition home or self-care (01) ==
LOC: SUR 07:38
PROVIDERS: ATTEND Pain Medicine Interventional Pain Medicine
DX: M96.1 Postlaminectomy syndrome, not elsewhere classified (principal); M47.816 Spondylosis without myelopathy or radiculopathy, lumbar region; I48.91 Unspecified atrial fibrillation; Z79.01 Long term (current) use of anticoagulants; E11.9 Type 2 diabetes mellitus without complications; Z79.4 Long term (current) use of insulin; K21.9 Gastro-esophageal reflux disease without esophagitis; J44.9 Chronic obstructive pulmonary disease, unspecified; E03.9 Hypothyroidism, unspecified; Z86.74 Personal history of sudden cardiac arrest